=== PATIENT | male | born 1940 | race Caucasian/White ===

== ENCOUNTER 2016-09-30 15:42 | Inpatient (IN) | payer OTHER, MEDICARE ==
[~2016-09-30] VITALS: Ht 182.9 cm; Wt 57.6 kg
[2016-09-30] VITALS (24 sets, daily range): BP systolic 78–122; BP diastolic 52–74; PULSE 84–109; RESP 23–36; Ht 182.9 cm; Wt 57.6 kg
[2016-09-30] MEDS ORDERED: NORepinephrine 8MG/250 ML (PMX 250 ML IV SCH (16:30)
[2016-09-30] MEDS: SOD CHLORIDE 0.9% 1,000 ML IV SCH ×3 (17:16→23:55)
[2016-09-30] MEDS ORDERED: ZOLPIDEM 5 MG TAB PO PRN (18:00)
[2016-09-30 19:25] LABS: ALBUMIN 2.1 g/dl (3.3-4.9); CHLORIDE 111 mmol/L (97-110)
[2016-09-30 19:26] LABS: POTASSIUM 3.6 mmol/L (3.5-5.1); SODIUM 144 mmol/L (135-144)
[2016-09-30 19:28] LABS: ANION GAP 14 (8-16); ASPARTATE AMINO TRANSFERASE 18 IU/L (15-46); CARBON DIOXIDE 23 mmol/L (21-31); CREATININE 0.91 mg/dl (0.61-1.24)
[2016-09-30 19:29] LABS: ALANINE AMINOTRANSFERASE 12 IU/L (13-69); ALBUMIN/GLOBULIN RATIO 0.75; ALKALINE PHOSPHATASE 94 IU/L (42-121); BASOPHILS % 0.1 % (0.0-2.0); BLOOD UREA NITROGEN 45 mg/dl (7-20); CALCIUM 9.4 mg/dl (8.4-10.2); EOSINOPHILS # 0.1 10^3/ul (0.0-0.5); EOSINOPHILS % 0.7 % (0.0-7.0); GLUCOSE 77 mg/dl (70-220); HEMATOCRIT 24.3 % (42.0-52.0); HEMOGLOBIN 7.9 g/dl (14.0-18.0); LACTATE DEHYDROGENASE 423 IU/L (313-618); LYMPHOCYTES # 0.6 10^3/ul (0.8-2.9); LYMPHOCYTES % 3.7 % (15.0-51.0); MEAN CORPUSCULAR HEMOGLOBIN 29.7 pg (29.0-33.0); MEAN CORPUSCULAR HGB CONC 32.2 g/dl (32.0-37.0); MEAN CORPUSCULAR VOLUME 92.2 fl (82.0-101.0); MEAN PLATELET VOLUME 9.5 fl (7.4-10.4); MONOCYTE # 1.1 10^3/ul (0.3-0.9); MONOCYTES % 6.7 % (0.0-11.0); NEUTROPHIL # 14.7 10^3/ul (1.6-7.5); NEUTROPHILS % 88.8 % (39.0-77.0); PLATELET COUNT 201 10^3/UL (140-440); RED BLOOD COUNT 2.64 10^6/ul (4.70-6.10); RED CELL DISTRIBUTION WIDTH 15.2 % (11.5-14.5); TOTAL PROTEIN 4.9 g/dl (6.1-8.1); UNCORRECTED WBC 16.6 10^3/ul (4.8-10.8); WHITE BLOOD COUNT 16.6 10^3/ul (4.8-10.8)
[2016-09-30 19:30] LABS: INR 1.19; PROTIME 15.2 Sec (12.2-14.2); PT RATIO 1.2
[2016-09-30 19:33] LABS: CONDITION 1; LH ANALYZER COMMENTS 1
--- NOTE | 2016-09-30 19:34 | RADRPT ---
PROCEDURE: XR Chest. CLINICAL INDICATION: Cough. Sepsis. TECHNIQUE: Single frontal view. COMPARISON: 09/19/2016. FINDINGS: The lungs are clear. The heart size is normal. There is no pleural effusion or pneumothorax. There are multiple old healed right rib fractures. IMPRESSION: 1. Multiple old healed right rib fractures. 2. Otherwise normal chest radiograph. RPTAT: QQ .Quan Olvera MD, MD Date Time Electronically viewed and signed by .Quan Olvera MD, MD on 09/30/2016 19:33 .R/
[2016-09-30] MEDS: IPRATROPIUM (NEB) 0.5 MG/2.5 ML AMP HHN SCH (19:57)
[2016-09-30 19:59] LABS: TROPONIN-I < 0.012 ng/ml (0.00-0.12)
[2016-09-30] MEDS: ACETYLCYSTEINE 20% 4 ML VIAL NEB SCH (20:05)
[2016-09-30] MEDS: HYPROMELLOSE 0.5% 15 ML OPH BOTH EYES PRN (20:59)
[2016-09-30] MEDS ORDERED: SENNA (PO SYG) GTB SCH (21:00)
[2016-09-30] MEDS: SENNA (PO SYG) GTB SCH ×2 (21:00→21:06)
[2016-09-30] MEDS: DOXAZOSIN 1 MG TAB PO SCH (21:00)
[2016-09-30] MEDS ORDERED: BACITRACIN 0.5%/ZINC 28.35 GM OINT TOP SCH (21:00)
[2016-09-30] MEDS: FERROUS SULFATE 60 MG/ML 5ML CUP GTB SCH (21:00)
[2016-09-30] MEDS: BACITRACIN 0.9 GM OINT TOP SCH (21:02)
[2016-09-30] MEDS: ARTIFICIAL TEARS 15 ML OPH BOTH EYES SCH (21:06)
[2016-09-30] MEDS: ACETAMINOPHEN 650MG/20.3ML CUP GTB SCH ×2 (21:06→22:00)
[2016-09-30] MEDS: POLYETHYLENE GLYCOL 17 GM PACKET GTB SCH (21:06)
[2016-09-30] MEDS: COLISTIMETHATE 75 MG in SOD CHLORIDE 0.9% 100 ML IVPB SCH (21:16)
[2016-09-30 21:29] LABS: ADD UMIC YES; URINE BILIRUBIN (Dip) NEGATIVE (NEGATIVE); URINE BLOOD (Dip) 2+ (NEGATIVE); URINE COLOR LT. YELLOW (YELLOW); URINE GLUCOSE (Dip) NEGATIVE (NEGATIVE); URINE KETONES (Dip) NEGATIVE (NEGATIVE); URINE LEUKOCYTE ESTERASE (Dip) 2+ (NEGATIVE); URINE NITRITE (Dip) NEGATIVE (NEGATIVE); URINE TOTAL PROTEIN (Dip) 2+ (NEGATIVE); URINE UROBILINOGEN (Dip) 0.2 E.U./dL (0.1-1.0)
[2016-09-30 21:33] LABS: PARTIAL THROMBOPLASTIN TIME 30.6 Sec (25.0-35.0)
[2016-09-30 22:41] LABS: SQUAMOUS EPITHELIAL CELL,UR MANY
[2016-09-30 22:42] LABS: BACTERIA,URINE MODERATE
[2016-09-30] MEDS ORDERED: NACL 3% FOR INHALATION 15 ML NEBU NEB ONE (23:30)
[2016-10-01] VITALS (86 sets, daily range): BP systolic 71–135; BP diastolic 40–79; PULSE 82–134; RESP 18–38
[2016-10-01] MEDS: IPRATROPIUM (NEB) 0.5 MG/2.5 ML AMP HHN SCH ×4 (02:34→20:26)
[2016-10-01] MEDS: ACETAMINOPHEN 650MG/20.3ML CUP GTB SCH ×6 (02:37→21:44)
[2016-10-01 03:28] LABS: AADO2 Arterial 38.3 mmHg (7.0-24.0); Allen Test ACCEPTAB; Arterial Base Excess -2.9 mmol/L (-3.0-3); Arterial COHb 0.3 % (0.0-3.0); Arterial Fraction of Oxyhgb 96.9 % (93.0-99.0); Arterial HCO3 21.1 mmol/L (22.0-26.0); Arterial MetHb 0.6 % (0.0-1.5); Arterial Total Hemglobin 7.1 g/dl (12.0-18.0); MODE NASAL CANNULA
[2016-10-01 06:58] LABS: POTASSIUM 4.8 mmol/L (3.5-5.1)
[2016-10-01 07:01] LABS: CREATININE 0.88 mg/dl (0.61-1.24)
[2016-10-01 07:02] LABS: CALCIUM 9.3 mg/dl (8.4-10.2); MAGNESIUM 2.1 mg/dl (1.7-2.5); PHOSPHORUS 3.6 mg/dl (2.5-4.9)
[2016-10-01 08:23] LABS: BASOPHILS % 0.2 % (0.0-2.0); EOSINOPHILS # 0.1 10^3/ul (0.0-0.5); HEMOGLOBIN 7.3 g/dl (14.0-18.0); LYMPHOCYTES # 0.4 10^3/ul (0.8-2.9); LYMPHOCYTES % 3.1 % (15.0-51.0); MEAN CORPUSCULAR HEMOGLOBIN 30.6 pg (29.0-33.0); MEAN CORPUSCULAR HGB CONC 33.2 g/dl (32.0-37.0); MEAN CORPUSCULAR VOLUME 92.1 fl (82.0-101.0); MEAN PLATELET VOLUME 8.5 fl (7.4-10.4); MONOCYTE # 0.9 10^3/ul (0.3-0.9); MONOCYTES % 6.6 % (0.0-11.0); NEUTROPHIL # 11.7 10^3/ul (1.6-7.5); NEUTROPHILS % 89.1 % (39.0-77.0); PLATELET COUNT 234 10^3/UL (140-440); RED BLOOD COUNT 2.39 10^6/ul (4.70-6.10); RED CELL DISTRIBUTION WIDTH 15.4 % (11.5-14.5); UNCORRECTED WBC 13.1 10^3/ul (4.8-10.8); WHITE BLOOD COUNT 13.1 10^3/ul (4.8-10.8)
[2016-10-01 08:26] LABS: CONDITION 1; LH ANALYZER COMMENTS 1
[2016-10-01] MEDS: ACETYLCYSTEINE 20% 4 ML VIAL NEB SCH ×2 (08:30→20:26)
[2016-10-01] MEDS ORDERED: ASPIRIN 81 MG TAB GTB SCH (09:00)
[2016-10-01] MEDS: POLYETHYLENE GLYCOL 17 GM PACKET GTB SCH ×2 (09:22→21:00)
[2016-10-01] MEDS: COLISTIMETHATE 75 MG in SOD CHLORIDE 0.9% 100 ML IVPB SCH ×2 (09:22→21:45)
[2016-10-01] MEDS: FERROUS SULFATE 60 MG/ML 5ML CUP GTB SCH ×2 (09:22→21:44)
[2016-10-01] MEDS: BACITRACIN 0.9 GM OINT TOP SCH ×2 (09:23→21:00)
[2016-10-01] MEDS: ENOXAPARIN 40 MG/0.4 ML SYG SC SCH (09:28)
[2016-10-01] MEDS: FLUCONAZOLE 100 MG TAB GTB SCH (09:32)
[2016-10-01] MEDS ORDERED: SOD CHLORIDE 0.9% 250 ML IV* ONE (10:19)
--- NOTE | 2016-10-01 11:21 | HP ---
DATE OF ADMISSION: 09/30/2016 HISTORY OF PRESENT ILLNESS: The patient is a 75-year-old gentleman with past medical history of Par kinson's disease, versus other neurogenic progressive conditions, i.e. supranuclear palsy, history of dysphagia secondary to tongue cancer status post resection and radiation, status post G-tube plac ement, history of depression, multiple falls with complication of subdural hematoma, history of meni ngioma, prostate cancer status post TURP, history of hypertension who presented via [place] to [facility] after noting to be hypotensive overnight. The patient has been seen in [place] by multiple special ists. including ID. He has a previous diagnosis of sepsis with secondary bacterial cystitis, aspira tion pneumonia and questionable necrotic pelvic mass. He has been on multiple antibiotics. He has not noticed any fevers, chills, nausea, vomiting, chest pain, shortness of breath. A pelvic mass gan d a reported biopsy which showed adenocarcinoma, possibly secondary to his primary tongue cancer. T he patient was evaluated by oncology at [facility]. His previous hospital course has been complic ated by C. diff. He was felt to have recurrent aspiration pneumonia, also noted to have a stage IV decubitus. He underwent excision of a left ischial pressure ulcer with ischiectomy, ____ sacral p ressure with coccygectomy by Dr. Mcneal on 08/30/2016 with a wound VAC placement and was transfused last week for anemia. Primary care is reviewed. Plan of care was discussed with Dr. Hunt. He is currently in ICU stabilized. He is on antibiotics, Colistin. PAST MEDICAL HISTORY: Significant for the above. MEDICATIONS: 1. Aspirin. 2. Lovenox. 3. Diflucan. 4. Sodium chloride. 5. Mucomyst. 6. Artificial Tears. 7. MiraLax. 8. Senna. 9. Bacitracin. 10. Colistin. 11. Cardura. 12. Ferrous sulfate. 13. Isopto tears. 14. Atrovent. 15. Norepinephrine. 16. Tylenol. 17. Tramadol. 18. Ambien. ALLERGIES: The patient has allergies to: 1. PENICILLIN. 2. CODEINE. 3. HYDROCODONE. 4. MORPHINE. SOCIAL HISTORY: Does not smoke, drink or do drugs. Has been in a prolonged hospitalization. FAMILY HISTORY: History of kidney disease. REVIEW OF SYSTEMS: A 14-point review of systems was attempted and negative, also stated on exam. PHYSICAL EXAMINATION: VITAL SIGNS: Temperature 97.9, blood pressure 117/61. HEENT: Normocephalic, atraumatic. Oropharynx shows moist mucous membranes. NECK: Supple. HEART: Regular rate and rhythm. LUNGS: Clear. ABDOMEN: Soft, nontender. Bowel sounds present. LABORATORY EVALUATION: White count 13.1, hemoglobin 7.3, hematocrit 22. Sodium 147, potassium 4.8, BUN 40, creatinine 0.88. UA is reviewed on microscopy. Chest x-ray is reviewed by radiologist. IMPRESSION: 1. Acute hemodynamic instability, possibly septic shock on broad-spectrum antibiotics -- currently on Colistin. Will consult ID to adjust treatment plan. Other possibilities, hypovolemic shock in light of worsening anemia and cardiogenic shock. Cardiology is following. Will continue to monitor . 2. Acute hypoxemic respiratory failure secondary to ____ aspiration pneumonia and possible diastoli c heart failure. Continue supplemental oxygen, nebulizer. Pulmonary is following. 3. History of tongue cancer status post radiation resection with possible metastatic disease to the pelvis. Monitor. 4. Pelvic mass, possibly consistent with adenocarcinoma, possibly from metastatic as primary pathol ogy. Currently not a candidate for chemo. 5. Dysphagia, status post PEG placement. Continue tube feedings. 6. Sepsis, previously secondary to bacterial cystitis, aspiration pneumonia and questionable necrot ic mass. ID is following. Multiple ANTIBIOTIC ALLERGIES noted. 7. Stage IV decubitus wound, status post excision of left ischial pressure ulcer with ischiectomy, excision of sacral pressure ulcer with coccygectomy on 08/30/2016. 8. Parkinson's disease versus neurodegenerative disease versus supranuclear palsy, on Sinemet. 9. History of diastolic heart failure. The patient appears euvolemic in the past. 10. Diarrhea. History of occasional diarrhea. currently not evident. 11. Anemia, status post transfusion. We will need to transfuse in again light of hypotension and p ossible blood loss, hypovolemia. 12. History of prostate cancer status post TURP. The patient has a suprapubic catheter, but little urine output noted. Will monitor. Previous history of bilateral hydronephrosis. 13. Hypertension. Blood pressure is controlled. Continue current blood pressure regimen with hold ing parameters. 14. Chronic neurogenic bladder, status post TURP and suprapubic catheter. 15. Acute encephalopathy, multifactorial. Continue supportive care. 16. Gastrointestinal and deep venous thrombosis prophylaxis as ordered. 17. Previous history of hypercalcemia. Corrected calcium is probably still elevated. Dictated By: SERENITY MILTON MD DF/CHELSI Conf#: [id number] DID#: [id number]
[2016-10-01] MEDS ORDERED: LIDOCAINE 1% (MDV) 20 ML INJ SC ONE (11:30)
[2016-10-01] MEDS: SOD CHLORIDE 0.9% 1,000 ML IV SCH (11:53)
--- NOTE | 2016-10-01 14:25 | PN ---
DATE: 10/01/2016 SUBJECTIVE: The patient was transferred yesterday from [facility] secondary to septic shock, c urrently on Levophed drip. He is obtunded, in no distress. VITAL SIGNS: Temperature 98, pulse 90, respirations 34, blood pressure 125/67, saturation 98% on 2 liters. LABORATORY DATA: WBC 13.1, H and H 7.3 and 22, platelets 234, neutrophils 79.1. BUN 40, creatinine 0.88. INDWELLINGS: Suprapubic catheter, peripheral IV, also G-tube. ANTIMICROBIALS: The patient is on: 1. Fluconazole. 2. IV Colistin. DIAGNOSTICS: Chest x-ray on 09/30/2016 revealed no pleural effusions or pneumothorax. PHYSICAL EXAMINATION: GENERAL: This is a chronically ill-appearing, elderly man who is lying comfortably in bed. HEENT: Head atraumatic, normocephalic. Sclerae anicteric. Buccal mucosa dry. NECK: Supple. CHEST: Rise symmetrical. Breath sounds diminished to bases. HEART: S1, S2. ABDOMEN: Soft. Bowel sounds present. EXTREMITIES: With bilateral edema. SKIN: No jaundice, no cyanosis. ASSESSMENT: 1. Severe sepsis with shock, likely multifactorial. 2. Resolving pneumonia. 3. Status post urinary tract infection with urine culture on 08/24/2016 grew vancomycin-resistant e nterococci and Enterobacter cloacae complex. 4. Multiple unstageable decubiti, status post incision and drainage, cultures grew Enterobacter cristhian acae, vancomycin-resistant enterococci, Bacteroides fragilis and Acinetobacter baumannii. 5. Chronic encephalopathy. 6. Metastatic disease with CT of the abdomen and pelvis revealed right upper lobe infectious or inf lammatory bronchiolitis, moderate to severe right hydroureteronephrosis without obstruction, diffuse urinary bladder wall thickening, questionable infectious versus neoplastic process, approximately 1 1.3 x 8.6 x 8.7 cm mass in the inferior right pelvis with associated lysis of adjacent right superio r pubic ramus and pubic bone. PLAN: We are going to restart the patient on Zyvox given history of VRE and also to preserve kidney function. Continue colistin, fluconazole. Repeat cultures. Continue anti-aspiration measures. C onsider discussion with the family code status and plans of care. Dictated By: LUIS ARMANDO MIRANDA BILLING ASSOCIATE for MICHAEL RIVAS/CHELSI Conf#: [id number] DID#: [id number]
--- NOTE | 2016-10-01 17:05 | CONS ---
DATE OF ADMISSION: 09/30/2016 DATE OF CONSULTATION: 10/01/2016 TYPE OF CONSULTATION: Cardiology. REASON FOR CONSULTATION: Tachycardia, shock. CHIEF COMPLAINT: Low blood pressure, shock. HISTORY OF PRESENT ILLNESS: Thank you for this referral. History obtained from the patient's chart and from extensive review of the old chart. The patient also known to me from previous admission t [facility]. Discussed with the staff. This unfortunate 75-year-old gentleman with a complic ated medical history who was treated at [facility] for hypotension and shock. The patient requ ired to be placed on Levophed drip. The patient unable to give history to me, and is lethargic. He has also been tachycardic. PAST MEDICAL HISTORY: History of Parkinson disease, history of dysphagia, PEG placement, history of tongue cancer status post resection and radiation, history of multiple falls and subdural hematoma, history of meningioma, prostate CA status post TURP, ____ history of hypertension, respiratory fail ure, encephalopathy, C. diff, tachycardia. SOCIAL HISTORY: Does not smoke or drink at this point. Has had a prolonged hospitalization. MEDICATIONS: As per medical reconciliation, personally reviewed. ALLERGIES: 1. PENICILLIN. 2. CODEINE. 3. HYDROCODONE. 4. MORPHINE. FAMILY HISTORY: No reported early coronary artery disease. REVIEW OF SYSTEMS: Negative so far. The patient also has a PEG in place and dysphagia. Nonverbal. PHYSICAL EXAMINATION: VITAL SIGNS: Temperature 98, heart rate of 97, blood pressure 110/61, respiration rate of 32, satur ating 99%. HEENT: Normocephalic, atraumatic. Elderly gentleman. EYES: Pupils are equal. CARDIOVASCULAR: Tachycardic. PULMONARY: With mild rhonchi. GASTROINTESTINAL: Soft, status post PEG placement, otherwise no rebound or guarding. EXTREMITIES: With no significant lower extremity edema. NEUROLOGIC: Drowsy and lethargic, eyes are open, does not answer my questions, though. LABORATORY: Sodium 147, potassium 4.8, BUN of 40, creatinine 0.88, glucose 69, magnesium 2.1. WBC of 13.1, hemoglobin 7.2, platelets 234. Chest x-ray shows multiple old healed fractures, otherwise normal chest. Echocardiogram which was done on 09/20/2016, was personally reviewed. It showed ejec tion fraction of 65% with a grade I diastolic dysfunction. EKG showed normal sinus rhythm with slig htly prolonged QT. ASSESSMENT AND PLAN: 1. Septic shock. 2. Respiratory failure. 3. Sinus tachycardia secondary to above. 4. History of tongue cancer status post surgery. 5. Pelvic mass. 6. Decubitus ulcers. 7. Anemia, severe. 8. History of prostate cancer status post surgery. 9. Encephalopathy. RECOMMENDATIONS: I will stop the aspirin, given his severe anemia. Transfusion as per internal med icine is being arranged. Levophed will be continued for now. We will continue with the ICU care. More than 40 minutes of critical care management of this patient, excluding procedures. Dictated By: KATIE BURR/CHELSI Conf#: [id number] DID#: [id number]
[2016-10-01] MEDS: DOXAZOSIN 1 MG TAB PO SCH (21:00)
[2016-10-01] MEDS ORDERED: FUROSEMIDE 40 MG INJ IV ONE (21:30)
[2016-10-01] MEDS: ARTIFICIAL TEARS 15 ML OPH BOTH EYES SCH (21:44)
[2016-10-01] MEDS: LINEZOLID 600 MG/D5W (PMX) 300 ML IVPB SCH (21:45)
[2016-10-02] VITALS (30 sets, daily range): BP systolic 84–161; BP diastolic 57–96; PULSE 81–118; RESP 25–40
[2016-10-02] MEDS: IPRATROPIUM (NEB) 0.5 MG/2.5 ML AMP HHN SCH ×3 (01:29→13:42)
[2016-10-02] MEDS: ACETAMINOPHEN 650MG/20.3ML CUP GTB SCH ×7 (02:00→22:47)
[2016-10-02] MEDS: traMADol 50 MG TAB GTB PRN ×5 (02:22→23:53)
[2016-10-02 06:31] LABS: ALBUMIN 2.3 g/dl (3.3-4.9)
[2016-10-02 06:32] LABS: POTASSIUM 3.2 mmol/L (3.5-5.1)
[2016-10-02 06:33] LABS: PHOSPHORUS 4.1 mg/dl (2.5-4.9)
[2016-10-02 06:34] LABS: ALBUMIN/GLOBULIN RATIO 0.69; CREATININE 1.02 mg/dl (0.61-1.24); MAGNESIUM 1.8 mg/dl (1.7-2.5); TOTAL PROTEIN 5.6 g/dl (6.1-8.1)
[2016-10-02 06:35] LABS: CALCIUM 9.3 mg/dl (8.4-10.2)
[2016-10-02 06:42] LABS: EOSINOPHILS # 0.1 10^3/ul (0.0-0.5); EOSINOPHILS % 0.7 % (0.0-7.0); HEMATOCRIT 29.5 % (42.0-52.0); HEMOGLOBIN 9.9 g/dl (14.0-18.0); LYMPHOCYTES # 0.5 10^3/ul (0.8-2.9); LYMPHOCYTES % 3.1 % (15.0-51.0); MEAN CORPUSCULAR HEMOGLOBIN 30.2 pg (29.0-33.0); MEAN CORPUSCULAR HGB CONC 33.4 g/dl (32.0-37.0); MEAN CORPUSCULAR VOLUME 90.3 fl (82.0-101.0); MEAN PLATELET VOLUME 8.6 fl (7.4-10.4); MONOCYTE # 0.6 10^3/ul (0.3-0.9); MONOCYTES % 4.5 % (0.0-11.0); NEUTROPHIL # 13.2 10^3/ul (1.6-7.5); NEUTROPHILS % 91.7 % (39.0-77.0); PLATELET COUNT 252 10^3/UL (140-440); RED BLOOD COUNT 3.26 10^6/ul (4.70-6.10); RED CELL DISTRIBUTION WIDTH 15.9 % (11.5-14.5); UNCORRECTED WBC 14.4 10^3/ul (4.8-10.8); WHITE BLOOD COUNT 14.4 10^3/ul (4.8-10.8)
[2016-10-02 07:08] LABS: CONDITION 1; LH ANALYZER COMMENTS 1
[2016-10-02] MEDS: ACETYLCYSTEINE 20% 4 ML VIAL NEB SCH (08:45)
[2016-10-02] MEDS: POLYETHYLENE GLYCOL 17 GM PACKET GTB SCH ×2 (09:00→20:53)
[2016-10-02] MEDS: LINEZOLID 600 MG/D5W (PMX) 300 ML IVPB SCH ×2 (09:43→20:21)
[2016-10-02] MEDS: FERROUS SULFATE 60 MG/ML 5ML CUP GTB SCH ×2 (09:43→20:29)
[2016-10-02] MEDS: COLISTIMETHATE 75 MG in SOD CHLORIDE 0.9% 100 ML IVPB SCH ×2 (09:43→21:59)
[2016-10-02] MEDS: FLUCONAZOLE 100 MG TAB GTB SCH (09:43)
[2016-10-02] MEDS: BACITRACIN 0.9 GM OINT TOP SCH ×2 (09:44→20:33)
[2016-10-02] MEDS: ENOXAPARIN 40 MG/0.4 ML SYG SC SCH (10:05)
--- NOTE | 2016-10-02 10:06 | CONS ---
Date/Time of Note Date/Time of Note DATE: 10/02/16 TIME: 09:59 Consult Date/Type/Reason Admit Date/Time Sep 30, 2016 at 17:03 Initial Consult Date Subjective The patient is a 75-year-old gentleman with past medical history of Parkinson' s disease, versus other neurogenic progressive conditions, i.e. supranuclear palsy, history of dysphagia secondary to tongue cancer status post resection and radiation, status post G-tube placement, history of depression, multiple falls with complication of subdural hematoma, history of meningioma, prostate cancer status post TURP, history of hypertension who presented via [place] to the ICU after noting to be hypotensive overnight. The patient has been seen in [place] by multiple specialists. including ID. He has a previous diagnosis of sepsis with secondary bacterial cystitis, aspiration pneumonia and questionable necrotic pelvic mass. He has been on multiple antibiotics. He has not noticed any fevers, chills, nausea, vomiting, chest pain, shortness of breath. A pelvic mass had a reported biopsy which showed adenocarcinoma, possibly secondary to his primary tongue cancer. The patient was evaluated by oncology at [facility]. His previous hospital course has been complicated by C. diff. He was felt to have recurrent aspiration pneumonia, also noted to have a stage IV decubitus. He underwent excision of a left ischial pressure ulcer with ischiectomy, sacral pressure ulcer with coccygectomy by Dr. Mcneal on with a wound VAC placement and was transfused last week for anemia. Plan of care was discussed with Dr. candelario. He is currently in ICU stabilized. He is on antibiotics, Colistin. He is sp prbc yesterday. bp is better. estimated time of retention > 60 min. GENERAL: This is a chronically ill-appearing, elderly man who is lying comfortably in bed. HEENT: Head atraumatic, normocephalic. Sclerae anicteric. Buccal mucosa dry. NECK: Supple. CHEST: Rise symmetrical. Breath sounds diminished to bases. HEART: S1, S2. ABDOMEN: Soft. Bowel sounds present. EXTREMITIES: With bilateral edema. SKIN: No jaundice, no cyanosis. Objective Vital Signs Date Time Temp Pulse Resp B/P Pulse Ox O2 Delivery O2 Flow Rate FiO2 10/02/16 08:45 118 40 100 Nasal Cannula 2.0 10/02/16 06:00 140/77 10/02/16 04:00 97.6 10/02/16 02:06 28 Intake and Output 10/01/16 10/01/16 10/02/16 15:00 23:00 07:00 Intake Total 959.36 ml 937.55 ml Output Total 325 ml 535 ml 885 ml Balance 634.36 ml 402.55 ml -885 ml Results/Medications Result Diagram: 10/02/16 0546 10/02/16 0546 Results 24 hrs Laboratory Tests Test 10/02/16 05:46 Alanine Aminotransferase (ALT/SGPT) 25 Albumin 2.3 L Albumin/Globulin Ratio 0.69 Alkaline Phosphatase 94 Anion Gap 16 Aspartate Amino Transf (AST/SGOT) 20 Basophils # 0.0 Basophils % 0.0 Blood Morphology Comment Blood Urea Nitrogen 33 H Calcium Level 9.3 Carbon Dioxide Level 20 L Chloride Level 114 H Creatinine 1.02 Direct Bilirubin 0.00 Eosinophils # 0.1 Eosinophils % 0.7 Globulin 3.30 H Glucose Level 78 Hematocrit 29.5 #L Hemoglobin 9.9 #L Indirect Bilirubin 0.0 Lymphocytes # 0.5 L Lymphocytes % 3.1 L Magnesium Level 1.8 Mean Corpuscular Hemoglobin 30.2 Mean Corpuscular Hemoglobin Concent 33.4 Mean Corpuscular Volume 90.3 Mean Platelet Volume 8.6 Monocytes # 0.6 Monocytes % 4.5 Neutrophils # 13.2 H Neutrophils % 91.7 H Nucleated Red Blood Cells # 0.0 Nucleated Red Blood Cells % 0.0 Phosphorus Level 4.1 Platelet Count 252 Potassium Level 3.2 L Red Blood Count 3.26 #L Red Cell Distribution Width 15.9 H Sodium Level 147 H Total Bilirubin 0.0 L Total Protein 5.6 L White Blood Count 14.4 H Medications Current Medications Norepinephrine/ Dextrose (Levophed/D5W) 500 ml @ 7.5 mls/hr TITRATE IV Last administered on 10/01/16 04:09; Admin Dose 7.5 MLS/HR; Start 09/30/16 at 19:00 Acetaminophen (Tylenol Liquid) 650 mg Q6 PRN GTB PAIN AND OR ELEVATED TEMP; Start 09/30/16 at 18:00 Acetaminophen (Tylenol Liquid) 650 mg Q4H GTB Last administered on 10/02/16 09 :43; Admin Dose 650 MG; Start 09/30/16 at 18:00 Acetylcysteine (Mucomyst) 2 ml Q12 NEB Last administered on 10/02/16 08:45; Admin Dose 2 ML; Start 09/30/16 at 21:00 Eye Lubricant (Artificial Tears Oph) 2 drop HS BOTH EYES Last administered on 21:44; Admin Dose 2 DROP; Start 09/30/16 at 21:00 Polyethylene Glycol (Miralax) 17 gm BID GTB Last administered on 10/01/16 09: 22; Admin Dose 17 GM; Start 09/30/16 at 21:00 Tramadol HCl (Ultram) 25 mg Q6H PRN GTB PAIN Last administered on 10/02/16 09: 43; Admin Dose 25 MG; Start 09/30/16 at 18:00 Zolpidem Tartrate (Ambien) 5 mg HS PRN PO INSOMNIA; Start 09/30/16 at 18:00 Senna (Senokot (Ped)) 5 ml HS GTB Last administered on 09/30/16 21:06; Admin Dose 5 ML; Start 09/30/16 at 21:00 Bacitracin 1 applic 1 applic BID TOP Last administered on 10/02/16 09:44; Admin Dose 1 APPLIC; Start 09/30/16 at 21:00 Colistimethate Sodium/Sodium Chloride (Coly-Mycin/NS) 100 ml @ 200 mls/hr Q12 IVPB Last administered on 10/02/16 09:43; Admin Dose 200 MLS/HR; Start at 21:00 Doxazosin Mesylate (Cardura) 1 mg HS PO ; Start 09/30/16 at 21:00 Enoxaparin Sodium (Lovenox) 40 mg DAILY SC Last administered on 10/01/16 09:28 ; Admin Dose 40 MG; Start 10/01/16 at 09:00 Ferrous Sulfate (Feosol Liquid Cup) 300 mg BID GTB Last administered on 09:43; Admin Dose 300 MG; Start 09/30/16 at 21:00 Fluconazole (Diflucan) 100 mg DAILY GTB Last administered on 10/02/16 09:43; Admin Dose 100 MG; Start 10/01/16 at 09:00 Hypromellose 1 drop 1 drop Q6H PRN BOTH EYES IRRITATION Last administered on 20:59; Admin Dose 1 DROP; Start 09/30/16 at 20:00 Linezolid (Zyvox 600mg/D5W (Pmx)) 300 ml @ 300 mls/hr Q12 IVPB Last administered on 10/02/16 09:43; Admin Dose 300 MLS/HR; Start 10/01/16 at 21:00 Assessment/Plan Chief Complaint/Hosp Course 1. Acute hemodynamic instability, possibly septic shock on broad-spectrum antibiotics -- currently on Colistin. ID to adjust treatment plan. started on zyvox. Other possibilities, hypovolemic shock in light of worsening anemia and cardiogenic shock. Cardiology is following. Will continue to monitor. 2. Acute hypoxemic respiratory failure secondary to recurent aspiration pneumonia and possible diastolic heart failure. Continue supplemental oxygen, nebulizer. Pulmonary is following. 3. History of tongue cancer status post radiation resection with possible metastatic disease to the pelvis. Monitor. 4. Pelvic mass, possibly consistent with adenocarcinoma, possibly from metastatic as primary pathology. Currently not a candidate for chemo. 5. Dysphagia, status post PEG placement. Continue tube feedings. 6. Sepsis, previously secondary to bacterial cystitis, aspiration pneumonia and questionable necrotic mass. ID is following. Multiple ANTIBIOTIC ALLERGIES noted. 7. Stage IV decubitus wound, status post excision of left ischial pressure ulcer with ischiectomy, excision of sacral pressure ulcer with coccygectomy on 08/30/2016. 8. Parkinson's disease versus neurodegenerative disease versus supranuclear palsy, on Sinemet. 9. History of diastolic heart failure. The patient appears euvolemic in the past. 10. Diarrhea. History of occasional diarrhea. currently not evident. 11. Anemia, status post transfusion. responded to appropriate levels. 12. History of prostate cancer status post TURP. The patient has a suprapubic catheter, but little urine output noted. Will monitor. Previous history of bilateral hydronephrosis. 13. Hypertension. Blood pressure is controlled. Continue current blood pressure regimen with holding parameters. 14. Chronic neurogenic bladder, status post TURP and suprapubic catheter. 15. Acute encephalopathy, multifactorial. Continue supportive care. 16. hypokalemia- replete. 17. Previous history of hypercalcemia. Corrected calcium is probably still elevated. 18. prophylaxis- Gastrointestinal and deep venous thrombosis prophylaxis as ordered. Problems: SERENITY MILTON MD Oct 02, 2016 10:06
[2016-10-02] MEDS ORDERED: POTASSIUM CHLORIDE 250 ML IVPB ONE (10:30)
[2016-10-02 14:32] LABS: AADO2 Arterial 72.8 mmHg (7.0-24.0); Arterial Base Excess -4.8 mmol/L (-3.0-3); Arterial COHb 0.4 % (0.0-3.0); Arterial Fraction of Oxyhgb 95.7 % (93.0-99.0); Arterial HCO3 18.6 mmol/L (22.0-26.0); Arterial MetHb 0.4 % (0.0-1.5); Arterial Total Hemglobin 12.8 g/dl (12.0-18.0); MODE NASAL CANNULA
[2016-10-02] MEDS ORDERED: HEPARIN (10 UNITS/ML) 5ML SYG IV ONE (15:00)
[2016-10-02] MEDS: HYPROMELLOSE 0.5% 15 ML OPH BOTH EYES PRN (16:30)
--- NOTE | 2016-10-02 16:34 | RADRPT ---
PROCEDURE: XR Chest. CLINICAL INDICATION: PICC line placement. TECHNIQUE: Portable AP supine view of the chest was obtained. COMPARISON: 09/30/2016 FINDINGS: The cardiomediastinal silhouette is within normal limits. The lungs are clear but mildly hyperinfla graciela. There is no evidence for pleural effusion, pneumothorax or pulmonary vascular congestion. Mul tiple old healed right upper rib fractures are again demonstrated without evidence of acute osseous abnormality. New left-sided PICC line is in good position the distal tip pointing inferiorly in the region of the superior vena cava above the right atrial junction RPTAT:HJJR IMPRESSION: 1. Successful interval left PICC place with the distal tip pointing inferiorly in the region of the superior vena cava above the right atrial junction. 2. No evidence of acute intrathoracic pathology or otherwise interval change from 09/30/2016. Physician Juvencio Date Time Electronically viewed and signed by Physician Juvencio on 10/02/2016 16:34 /
--- NOTE | 2016-10-02 17:12 | PN ---
DATE: 10/02/2016 SUBJECTIVE: Discussed with the staff. Rhythm strip reviewed. The patient remains in sinus rhythm and tachycardia. He has been able to be weaned off of Levophed. NEUROLOGIC: Sedated, nonresponsive. MEDICATIONS: Reviewed as per medical reconciliation, personally reviewed. PHYSICAL EXAMINATION: VITAL SIGNS: Temperature 97.7, heart rate of 108, blood pressure 92/67, respiration rate HEENT: Atraumatic, 75-year-old gentleman. EYES: Pupils equal and round. NECK: No JVD. CARDIOVASCULAR: Tachycardic. PULMONARY: With mild rhonchi, diffuse. GASTROINTESTINAL: Soft, status post percutaneous endoscopic gastrostomy placement. EXTREMITIES: Trivial lower extremity edema. NEUROLOGIC: Does not answer any questions or following commands. LABORATORY: WBC of 14.4, hemoglobin 9.9, platelets 252. Sodium 147, potassium 3.2, BUN of 33, crea tinine 1.02, glucose 78, albumin is 2.3. ASSESSMENT AND PLAN: 1. Shock, multifactorial secondary to hypovolemic and septic. 2. Respiratory failure. 3. Sinus tachycardia secondary to above. 4. History of tongue cancer, status post surgery. 5. Pelvic mass, probably tumor. 6. History of decubitus ulcers. 7. Anemia, status post transfusion. 8. History of prostate carcinoma, appears to be stable. 9. Encephalopathy. Recommendations: Will continue with supportive care. Off of Levophed now. Respiratory care will b e continued. Multiple antibiotic as per ID's recommendation will be continued. Nutritional support as tolerated will be continued as well. Dictated By: KATIE BURR/CHELSI Conf#: [id number] DID#: [id number]
--- NOTE | 2016-10-02 18:31 | PN ---
DATE: 10/02/2016 SUBJECTIVE: The patient is off pressors, lying comfortably in bed. He is nonverbal, obtunded, nonc ommunicative, and in no distress. Per report, he is ____. VITAL SIGNS: Temperature 97.6, pulse 109, respirations 30, blood pressure 128/71, saturation 100% o n 2 liters. LABORATORY DATA: WBC 14.4, H and H 9.9 and 29.5, platelets 252, neutrophils 91.7. No bands. BUN 3 3, creatinine 1.02. INDWELLINGS: The patient has Cruz, PICC line placed this morning, PEG. ANTIMICROBIALS: 1. Zyvox. 2. Fluconazole. 3. Colistin. PHYSICAL EXAMINATION: GENERAL: This is a chronically ill-appearing, elderly man who is lying comfortably in bed. HEENT: Head atraumatic, normocephalic. Sclerae anicteric. Buccal mucosa dry. NECK: Supple. CHEST: Rise symmetrical. Breath sounds diminished. HEART: S1, S2. ABDOMEN: Soft. Bowel tones hypoactive. EXTREMITIES: With trace edema. SKIN: With multiple unstageable decubitus. ASSESSMENT: 1. Severe sepsis with shock. 2. Multiple infected wounds, possible osteomyelitis, status post incision and drainage with wound c ulture at [facility] grew multi-drug resistant organisms, including Acinetobacter baumannii, va ncomycin resistant enterococcus, Bacteroides fragilis. 3. Significant secretion retention, possible ongoing aspiration. 4. Large pelvic mass, likely metastatic. 5. Chronic encephalopathy. 6. Status post urinary tract infection. PLAN: We are going to add Flagyl to the regimen for anaerobic coverage as well. For diarrhea the p atmejia developed per report, send stool for Clostridium difficile. Continue antibiotics, local woun d care. Consider surgical evaluation for possible debridement. Consider palliative care evaluation . Dictated By: LUIS ARMANDO MIRANDA DRUM TESTER for MICHAEL RIVAS/CHELSI Conf#: [id number] DID#: [id number] CC: JAX SLATER DO;*EndCC*
[2016-10-02] MEDS: LEVALBUTEROL (NEB) 0.63 MG/3 ML AMP HHN SCH (19:46)
--- NOTE | 2016-10-02 20:14 | RADRPT ---
PROCEDURE: Ultrasound guidance for placement of needle in left upper extremity vein. CLINICAL INDICATION: PICC placement. TECHNIQUE: Limited sonography of the left upper extremity was performed. Ultrasound images were recorded and st ored in the patient's medical record. COMPARISON: Chest radiograph of the same day. FINDINGS: The ultrasound images demonstrate a patent left upper extremity vein. The PICC line was inserted by the PICC line nurse. IMPRESSION: 1. Ultrasound guidance for a needle placement in a left upper extremity vein. 2. The visualized right upper extremity vein is patent. RPTAT: QQ .Jessica Rodriguez MD, Date Time Electronically viewed and signed by .Jessica Rodriguez MD, on 10/02/2016 20:14 .N/
[2016-10-02] MEDS: ARTIFICIAL TEARS 15 ML OPH BOTH EYES SCH (20:20)
[2016-10-02] MEDS: SENNA (PO SYG) GTB SCH (20:53)
[2016-10-02] MEDS: DOXAZOSIN 1 MG TAB PO SCH (20:54)
--- NOTE | 2016-10-02 21:48 | RADRPT ---
Vent Rate: 93 bpm RR Interval: 0 msec TX Interval: 158 msec QRS Duration: 100 msec QT Interval: 386 msec QTC Interval: 479 msec P-R-T [place]: 69 - 26 - 78 degrees Normal sinus rhythm with sinus arrhythmia Prolonged QT Abnormal ECG Electronically Signed By: Abiel Elizondo [id number]
[2016-10-02] MEDS: ACETAMINOPHEN 650MG/20.3ML CUP GTB PRN (22:47)
[2016-10-03] VITALS (28 sets, daily range): BP systolic 85–136; BP diastolic 50–99; PULSE 81–120; RESP 18–39
[2016-10-03] MEDS: ACETAMINOPHEN 650MG/20.3ML CUP GTB SCH (02:00)
[2016-10-03] MEDS: LEVALBUTEROL (NEB) 0.63 MG/3 ML AMP HHN SCH ×4 (02:07→20:22)
[2016-10-03] MEDS ORDERED: ACETAMINOPHEN 650MG/20.3ML CUP GTB PRN (04:00)
[2016-10-03] MEDS: ACETAMINOPHEN 650MG/20.3ML CUP GTB PRN ×2 (05:00→18:03)
[2016-10-03] MEDS: traMADol 50 MG TAB GTB PRN ×2 (05:02→18:03)
[2016-10-03 05:51] LABS: POTASSIUM 3.4 mmol/L (3.5-5.1)
[2016-10-03 05:53] LABS: CREATININE 1.11 mg/dl (0.61-1.24)
[2016-10-03 05:54] LABS: CALCIUM 9.2 mg/dl (8.4-10.2); MAGNESIUM 1.7 mg/dl (1.7-2.5); PHOSPHORUS 4.1 mg/dl (2.5-4.9)
[2016-10-03 06:46] LABS: EOSINOPHILS # 0.2 10^3/ul (0.0-0.5); EOSINOPHILS % 1.1 % (0.0-7.0); HEMATOCRIT 29.6 % (42.0-52.0); LYMPHOCYTES # 0.5 10^3/ul (0.8-2.9); LYMPHOCYTES % 3.1 % (15.0-51.0); MEAN CORPUSCULAR HEMOGLOBIN 30.7 pg (29.0-33.0); MEAN CORPUSCULAR HGB CONC 33.7 g/dl (32.0-37.0); MEAN CORPUSCULAR VOLUME 91.2 fl (82.0-101.0); MEAN PLATELET VOLUME 8.8 fl (7.4-10.4); MONOCYTE # 0.9 10^3/ul (0.3-0.9); MONOCYTES % 5.9 % (0.0-11.0); NEUTROPHIL # 14.5 10^3/ul (1.6-7.5); NEUTROPHILS % 89.9 % (39.0-77.0); PLATELET COUNT 303 10^3/UL (140-440); RED BLOOD COUNT 3.25 10^6/ul (4.70-6.10); RED CELL DISTRIBUTION WIDTH 15.7 % (11.5-14.5); UNCORRECTED WBC 16.2 10^3/ul (4.8-10.8); WHITE BLOOD COUNT 16.2 10^3/ul (4.8-10.8)
[2016-10-03 06:52] LABS: CONDITION 1; LH ANALYZER COMMENTS 1
[2016-10-03] MEDS ORDERED: POTASSIUM CHLORIDE 20 MEQ POWDER FOR ORAL SOLN GTB ONE (08:00)
[2016-10-03] MEDS: FERROUS SULFATE 60 MG/ML 5ML CUP GTB SCH ×2 (08:59→20:54)
[2016-10-03] MEDS: FLUCONAZOLE 100 MG TAB GTB SCH (09:00)
[2016-10-03] MEDS: BACITRACIN 0.9 GM OINT TOP SCH ×2 (09:00→20:55)
[2016-10-03] MEDS: ENOXAPARIN 40 MG/0.4 ML SYG SC SCH (09:12)
--- NOTE | 2016-10-03 09:27 | CONS ---
Date/Time of Note Date/Time of Note DATE: 10/03/16 TIME: 09:24 Assessment/Plan Assessment/Plan Additional Assessment/Plan Chest x-ray was reviewed from today which is essentially unremarkable. Assessment and recommendation; 1. Patient with advanced COPD present over to ICU for hypotension with interval resolution. Currently off pressor support. 2. Pneumonia. 3. End-stage COPD. 4. Advanced dementia and Parkinson's disease. Continue current treatment for now patient be transferred to telemetry unit. Prognosis remains poor. Consultation Date/Type/Reason Admit Date/Time Sep 30, 2016 at 17:03 Initial Consult Date Type of Consultation: Pulmonary/critical care 24 HR Interval Summary Free Text/Dictation Patient was transferred over from [place] for episode of hypotension to ICU. Patient always off pressor support. Because of advanced Parkinson's disease and dementia patient is unable to give any history whatsoever and history was obtained from medical records. Patient also is well-known to me from [facility]. General examination; elderly male awake currently in no distress very minimally responsive which is his underlying mental status. Currently does not appear to be in any distress. Exam/Review of Systems Vital Signs Vitals Vital Signs Date Time Temp Pulse Resp B/P Pulse Ox O2 Delivery O2 Flow Rate FiO2 10/03/16 08:41 110 32 100 Nasal Cannula 2.0 10/03/16 08:00 97.8 128/92 10/02/16 02:06 28 Intake and Output 10/02/16 10/02/16 10/03/16 15:00 23:00 07:00 Intake Total 410 ml 650 ml 535 ml Output Total 415 ml 310 ml 475 ml Balance -5 ml 340 ml 60 ml Exam H EENT examination; he does have a chronically stiff neck. No lymphadenopathy. No thyromegaly. Patient does not multiple carious teeth. Pupils are small bilaterally. Chest examination; diminished breath sounds bilaterally without any added sounds. S1-S2 audible, no murmurs. Regular rhythm. Abdomen examination; soft, G-tube in place. Suprapubic catheter in place. No organomegaly felt. Bowel sounds audible. Extremity examination; no peripheral edema. 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 Results Result Diagram: 10/03/16 0500 10/03/16 0500 Results 24 hrs Laboratory Tests Test 10/02/16 14:04 10/03/16 05:00 Arterial Blood HCO3 18.6 L Arterial Blood Base Excess -4.8 L Arterial Blood Oxygen Saturation 96.5 Eric Test N/A Arterial Blood Gas Puncture Site Right Brachial Arterial Blood Carboxyhemoglobin 0.4 Arterial Blood Date Drawn 10/02/2016 2:15:48 PM Arterial Blood Methemoglobin 0.4 Arterial Blood pCO2 (Temp correct) 29.8 L Arterial Blood pH (Temp corrected) 7.413 Arterial Blood pO2 (Temp corrected) 84.5 Blood Gas A-a O2 Differential 72.8 H Blood Gas Modality NASAL CANNULA Blood Gas Notified Time 10/02/2016 2:32:41 PM Blood Gas Notified Whom AT Blood Gas Specimen Source Blood arterial Blood Gas Temperature 37.0 FiO2 27.0 Oxyhemoglobin Percent 95.7 Total Hemoglobin 12.8 Anion Gap 17 H Basophils # 0.0 Basophils % 0.0 Blood Morphology Comment Blood Urea Nitrogen 32 H Calcium Level 9.2 Carbon Dioxide Level 19 L Chloride Level 115 H Creatinine 1.11 Eosinophils # 0.2 Eosinophils % 1.1 Glucose Level 76 Hematocrit 29.6 L Hemoglobin 10.0 L Lymphocytes # 0.5 L Lymphocytes % 3.1 L Magnesium Level 1.7 Mean Corpuscular Hemoglobin 30.7 Mean Corpuscular Hemoglobin Concent 33.7 Mean Corpuscular Volume 91.2 Mean Platelet Volume 8.8 Monocytes # 0.9 Monocytes % 5.9 Neutrophils # 14.5 H Neutrophils % 89.9 H Nucleated Red Blood Cells # 0.0 Nucleated Red Blood Cells % 0.0 Phosphorus Level 4.1 Platelet Count 303 # Potassium Level 3.4 L Red Blood Count 3.25 L Red Cell Distribution Width 15.7 H Sodium Level 148 H White Blood Count 16.2 H Medications Medications Current Medications Norepinephrine/ Dextrose (Levophed/D5W) 500 ml @ 7.5 mls/hr TITRATE IV Last administered on 10/01/16 04:09; Admin Dose 7.5 MLS/HR; Start 09/30/16 at 19:00 Acetaminophen (Tylenol Liquid) 650 mg Q6 PRN GTB PAIN AND OR ELEVATED TEMP Last administered on 10/03/16 05:00; Admin Dose 650 MG; Start 09/30/16 at 18:00 Eye Lubricant (Artificial Tears Oph) 2 drop HS BOTH EYES Last administered on 20:20; Admin Dose 2 DROP; Start 09/30/16 at 21:00 Polyethylene Glycol (Miralax) 17 gm BID GTB Last administered on 10/01/16 09: 22; Admin Dose 17 GM; Start 09/30/16 at 21:00 Tramadol HCl (Ultram) 25 mg Q6H PRN GTB PAIN Last administered on 10/03/16 05: 02; Admin Dose 25 MG; Start 09/30/16 at 18:00 Zolpidem Tartrate (Ambien) 5 mg HS PRN PO INSOMNIA; Start 09/30/16 at 18:00 Senna (Senokot (Ped)) 5 ml HS GTB Last administered on 09/30/16 21:06; Admin Dose 5 ML; Start 09/30/16 at 21:00 Bacitracin 1 applic 1 applic BID TOP Last administered on 10/03/16 09:00; Admin Dose 1 APPLIC; Start 09/30/16 at 21:00 Colistimethate Sodium/Sodium Chloride (Coly-Mycin/NS) 100 ml @ 200 mls/hr Q12 IVPB Last administered on 10/02/16 21:59; Admin Dose 200 MLS/HR; Start at 21:00 Doxazosin Mesylate (Cardura) 1 mg HS PO ; Start 09/30/16 at 21:00 Enoxaparin Sodium (Lovenox) 40 mg DAILY SC Last administered on 10/03/16 09:12 ; Admin Dose 40 MG; Start 10/01/16 at 09:00 Ferrous Sulfate (Feosol Liquid Cup) 300 mg BID GTB Last administered on 08:59; Admin Dose 300 MG; Start 09/30/16 at 21:00 Fluconazole (Diflucan) 100 mg DAILY GTB Last administered on 10/03/16 09:00; Admin Dose 100 MG; Start 10/01/16 at 09:00 Hypromellose 1 drop 1 drop Q6H PRN BOTH EYES IRRITATION Last administered on 16:30; Admin Dose 1 DROP; Start 09/30/16 at 20:00 Linezolid (Zyvox 600mg/D5W (Pmx)) 300 ml @ 300 mls/hr Q12 IVPB Last administered on 10/02/16 20:21; Admin Dose 300 MLS/HR; Start 10/01/16 at 21:00 Acetaminophen (Tylenol Liquid) 650 mg Q4H PRN GTB FEVER/PAIN; Start 10/03/16 at 04:00 WERNER CHURCH Oct 03, 2016 09:27
[2016-10-03] MEDS: LINEZOLID 600 MG/D5W (PMX) 300 ML IVPB SCH ×2 (09:34→21:00)
--- NOTE | 2016-10-03 09:43 | RADRPT ---
PROCEDURE: XR Chest. CLINICAL INDICATION: Congestive heart failure TECHNIQUE: Single frontal chest x-ray. COMPARISON: 10/02/2016 FINDINGS: The lungs are clear of acute infiltrates, edema, effusions, or masses. There is hyperinflation of th e lungs consistent with COPD. Left arm PICC line is in place unchanged.. The cardiomediastinal silh ouette is unremarkable. Multiple old right rib fractures are again noted.. Calcific atherosclerosi s of the aorta is present. IMPRESSION: Left arm PICC line in place unchanged. Old right rib fractures. No acute cardiopulmonary disease.. RPTAT: GG .Ernst Clemons MD, MD Date Time Electronically viewed and signed by .Ernst Clemons MD, MD on 10/03/2016 09:43 .L/
[2016-10-03] MEDS: POLYETHYLENE GLYCOL 17 GM PACKET GTB SCH ×2 (09:55→20:54)
[2016-10-03] MEDS: COLISTIMETHATE 75 MG in SOD CHLORIDE 0.9% 100 ML IVPB SCH ×2 (10:02→21:00)
--- NOTE | 2016-10-03 10:28 | PN ---
DATE: 10/03/2016 SUBJECTIVE: The patient remains critical, but improving. The patient is currently off pressor supp ort. Patient is tachypneic this morning. There has been no reports of hemoptysis, hematemesis or hematochezia. Urinary output has been adequate. No other acute events noted. OBJECTIVE: VITAL SIGNS: Blood pressure is 126/29, respiratory rate 29, heart rate 109, temperature 98.9. I'S AND O'S: The patient had 1.5 liters in, 1.2 liters out. HEENT: Head is normocephalic. NECK: Supple. HEART: Regular rate. LUNGS: Show diminished breath sounds at the base. ABDOMEN: Soft, nontender to palpation. No rebound or guarding. Positive PEG. EXTREMITIES: Negative for clubbing, cyanosis. No edema. DERMATOLOGIC: No rashes. MUSCULOSKELETAL: Positive decubitus wound. NEUROLOGIC: Limited exam due to lack of patient cooperation. MEDICATIONS: Patient's medication reviewed. LABORATORY DATA: Shows sodium 140, potassium 3.4, chloride 115, BUN 32, creatinine 1.11. White cou nt 16.2, hemoglobin 10.0, hematocrit 29.6, platelet count is 303. The patient's blood cultures and sputum cultures have been reviewed. IMAGING: Chest x-ray has been reviewed finding shows old healed ribs. ASSESSMENT AND PLAN: This is a 75-year-old male who presents with: 1. Sepsis status post shock. Underlying etiology is likely multifactorial due to decubitus wound, possibly urinary tract infection. The patient is currently off pressor support. Plan is to continu e current regimen of antibiotic therapy. Cultures have been reviewed and negative to date. We will follow up with infectious disease for further recommendations. 2. Acute hypoxemic respiratory failure, etiology is likely secondary to sepsis, possible diastolic heart failure. We will continue current treatment plan. Continue supplemental oxygen and nebulizer s. We will follow up chest x-ray. If there are findings consistent with congestion we will give diu retic therapy and monitor closely. 3. Dysphagia. Status post PEG. Continue tube feeding. 4. History of tongue cancer status post radiation. The patient has possible metastasis to the pelv is. We will continue to monitor. The patient was seen by oncology. 5. Pelvic mass, possibly consistent with adenocarcinoma from metastasis from primary pathology. Th e patient is not a candidate for chemo. We will continue to monitor. 6. Stage IV decubitus wound. Continue wound care. 7. Parkinson's disease versus neurodegenerative disorder. Continue to monitor. Continue Sinemet. 8. History of diastolic heart failure. Continue medical management. 9. Anemia. Continue to monitor hemoglobin and hematocrit levels. 10. History of prostate cancer status post TURP, status post suprapubic catheter. Continue to grant tor. The patient was seen by urology previously. 11. History of bilateral hydronephrosis secondary to likely pelvic mass. We will continue to monit or. 12. Hypertension. Blood pressure currently controlled. 13. Chronic neurogenic bladder, status post TURP, status post suprapubic catheter. We will continu e. 14. Acute encephalopathy on advanced dementia. Etiology is toxic metabolic. Continue supportive c are. 15. Hypokalemia. Continue to monitor and replete. 16. Hypernatremia. We will increase free water flushes 200 mL q.4h. 17. Gastrointestinal and deep venous thrombosis prophylaxis. Continue proton pump inhibitor and Lo venox. Please note I spent over 40 minutes of critical care time with this patient. Dictated By: JAX ANDRADE/CHELSI Conf#: [id number] DID#: [id number]
[2016-10-03] MEDS: metroNIDAZOLE 500 MG/NS (PMX) 100 ML IVPB SCH ×2 (15:58→21:00)
[2016-10-03] MEDS ORDERED: MAGNESIUM SULFATE 1 GM/D5W 100 ML IVPB ONE (16:00)
--- NOTE | 2016-10-03 16:24 | PN ---
DATE: 10/03/2016 SUBJECTIVE: No events overnight. The patient is lying comfortably in bed, nonverbal, noncommunicat penelope. No fevers. VITAL SIGNS: Temperature 98.4, pulse 100, respirations 34, blood pressure 121/69, saturation 100 on 3 liters. LABORATORY DATA: WBC 16.2, H and H 10 and 29.6, platelets 303, neutrophils 89.9. BUN 32, creatinin e 1.11. Sodium 148, potassium 3.4. MICROBIOLOGY: Repeat blood culture and urine cultures negative. DIAGNOSTICS: Chest x-ray this morning revealed no acute cardiopulmonary disease. INDWELLINGS: PEG, suprapubic catheter, left upper extremity PICC line placed on 10/02/2016. ANTIMICROBIALS: 1. Zyvox. 2. Fluconazole. 3. Colistin. 4. Flagyl. PHYSICAL EXAMINATION: GENERAL: This is a chronically ill-appearing, elderly man, who is lying comfortably in bed. HEENT: Head atraumatic, normocephalic. Sclerae anicteric. Buccal mucosa dry. NECK: Supple, trachea midline. CHEST: Rise symmetrical. Breath sounds diminished to bases with scattered rhonchi. HEART: S1, S2. ABDOMEN: Soft. Bowel tones hypoactive. EXTREMITIES: Without cyanosis. Bilateral edema. ASSESSMENT: 1. Severe sepsis with shock, off pressors. 2. Multiple infected decubitus with possible osteomyelitis, wound cultures at [facility] grew multi-drug resistant organisms, covered with Colistin, VRE, also positive for Bacteroides fragilis, on Flagyl. 3. Status post pneumonia, urinary tract infection. 4. Chronic encephalopathy. 5. Metastatic disease with large pelvic mass, history of tongue carcinoma status post radiation and infection. 6. History of prostate carcinoma. 7. Suprapubic catheter. 8. ALLERGY TO PENICILLIN. PLAN: Patient remains unchanged. Covered with appropriate antimicrobials. Continue present care. Follow recommendations of consultants. Dictated By: LUIS ARMANDO MIRANDA TRIMMER SAWYER for MICHAEL RIVAS/CHELSI Conf#: [id number] DID#: [id number]
--- NOTE | 2016-10-03 17:22 | PN ---
DATE: 10/03/2016 CARDIOLOGY FOLLOWUP SUBJECTIVE: Discussed with the staff. Rhythm strip reviewed. The patient remains in sinus tachyca rdia. Remains nonverbal. Blood pressure has remained stable off of pressors. MEDICATIONS: Reviewed. PHYSICAL EXAMINATION: VITAL SIGNS: Temperature 98.4, heart rate of 115, blood pressure 120/60, respiration rate of 32. S aturating 98%. HEENT: Normocephalic, atraumatic. GENERAL: Elderly gentleman. CARDIOVASCULAR: Tachycardic. PULMONARY: With no wheezes anteriorly. Mild rhonchi, diffuse. GASTROINTESTINAL: Soft, nontender. EXTREMITIES: With trivial lower extremity edema. NEUROLOGIC: Opens eyes. Does not follow commands and answer questions. LABORATORY: WBC of 16.2, hemoglobin 10.0, platelets of 303. Sodium 148, potassium 3.4, BUN 32, cre atinine 1.1, glucose of 76. Magnesium is 1.7. IMAGING: Chest x-ray shows left PICC line unchanged, old right ____ fracture, no acute cardiopulmon colton disease. ASSESSMENT AND PLAN: 1. Status post septic shock. Currently blood pressure has significantly improved. 2. Sinus tachycardia secondary to above. 3. Respiratory failure. 4. History of tongue cancer. 5. History of pelvis mass. 6. Multiple decubitus ulcers. 7. Parkinson disease. 8. Congestive heart failure with diastolic dysfunction and normal left ventricular systolic functio n. 9. History of prostate carcinoma. 10. History of hypertension, currently hypotensive, but stable. 11. Encephalopathy. 12. Electrolyte abnormalities. RECOMMENDATIONS: Continue with the respiratory care. Antibiotic as per ID's recommendations. Elec trolytes including potassium and magnesium will be replaced as needed. Will monitor on telemetry. Dictated By: KATIE DURÁN MD AV/NTS Conf#: [id number] DID#: [id number] CC: JAX SLATER DO;*EndCC*
[2016-10-03] MEDS: ARTIFICIAL TEARS 15 ML OPH BOTH EYES SCH (18:06)
[2016-10-03] MEDS: SENNA (PO SYG) GTB SCH (20:54)
[2016-10-03] MEDS: DOXAZOSIN 1 MG TAB PO SCH (20:55)
[2016-10-03] MEDS: ASCORBIC ACID 500 MG TAB GTB SCH (20:55)
[2016-10-04] VITALS (24 sets, daily range): BP systolic 78–125; BP diastolic 42–78; PULSE 92–120; RESP 19–40
[2016-10-04] MEDS: traMADol 50 MG TAB GTB PRN ×4 (00:25→20:03)
[2016-10-04] MEDS: ACETAMINOPHEN 650MG/20.3ML CUP GTB PRN ×2 (00:26→05:37)
[2016-10-04] MEDS: LEVALBUTEROL (NEB) 0.63 MG/3 ML AMP HHN SCH ×4 (01:49→20:59)
[2016-10-04 05:04] LABS: EOSINOPHILS # 0.2 10^3/ul (0.0-0.5); EOSINOPHILS % 1.1 % (0.0-7.0); HEMATOCRIT 26.7 % (42.0-52.0); HEMOGLOBIN 8.9 g/dl (14.0-18.0); LYMPHOCYTES # 0.6 10^3/ul (0.8-2.9); LYMPHOCYTES % 3.5 % (15.0-51.0); MEAN CORPUSCULAR HEMOGLOBIN 30.4 pg (29.0-33.0); MEAN CORPUSCULAR HGB CONC 33.5 g/dl (32.0-37.0); MEAN CORPUSCULAR VOLUME 90.6 fl (82.0-101.0); MEAN PLATELET VOLUME 8.7 fl (7.4-10.4); MONOCYTE # 0.9 10^3/ul (0.3-0.9); MONOCYTES % 5.1 % (0.0-11.0); NEUTROPHIL # 15.5 10^3/ul (1.6-7.5); NEUTROPHILS % 90.3 % (39.0-77.0); PLATELET COUNT 298 10^3/UL (140-440); RED BLOOD COUNT 2.95 10^6/ul (4.70-6.10); RED CELL DISTRIBUTION WIDTH 15.8 % (11.5-14.5); UNCORRECTED WBC 17.1 10^3/ul (4.8-10.8); WHITE BLOOD COUNT 17.1 10^3/ul (4.8-10.8)
[2016-10-04 05:10] LABS: POTASSIUM 3.7 mmol/L (3.5-5.1)
[2016-10-04 05:12] LABS: CREATININE 1.16 mg/dl (0.61-1.24)
[2016-10-04 05:13] LABS: PHOSPHORUS 3.6 mg/dl (2.5-4.9)
[2016-10-04 05:14] LABS: CALCIUM 9.3 mg/dl (8.4-10.2); MAGNESIUM 1.9 mg/dl (1.7-2.5)
[2016-10-04] MEDS: metroNIDAZOLE 500 MG/NS (PMX) 100 ML IVPB SCH ×3 (05:38→22:03)
[2016-10-04 06:00] LABS: CONDITION 1; LH ANALYZER COMMENTS 1
[2016-10-04] MEDS: MULTIVITAMINS 5 ML CUP GTB SCH (09:11)
[2016-10-04] MEDS: FERROUS SULFATE 60 MG/ML 5ML CUP GTB SCH ×2 (09:11→21:55)
[2016-10-04] MEDS: FLUCONAZOLE 100 MG TAB GTB SCH (09:11)
[2016-10-04] MEDS: ASCORBIC ACID 500 MG TAB GTB SCH ×2 (09:11→22:03)
[2016-10-04] MEDS: ENOXAPARIN 40 MG/0.4 ML SYG SC SCH (09:12)
[2016-10-04] MEDS: BACITRACIN 0.9 GM OINT TOP SCH ×2 (09:12→21:00)
[2016-10-04] MEDS: COLISTIMETHATE 75 MG in SOD CHLORIDE 0.9% 100 ML IVPB SCH ×2 (09:15→21:56)
[2016-10-04] MEDS: LINEZOLID 600 MG/D5W (PMX) 300 ML IVPB SCH ×2 (09:16→21:56)
--- NOTE | 2016-10-04 09:48 | CONS ---
Date/Time of Note Date/Time of Note DATE: 10/04/16 TIME: 09:44 Assessment/Plan Assessment/Plan Additional Assessment/Plan Assessment and recommendations; next 1. Patient admitted with hypotension with interval resolution. Currently off pressor support. 2. Severe end-stage lung disease. 3. Advanced Parkinson's disease. 4. Extremely poor mental status. 5. Prior history of tracheostomy with subsequent decannulation. Continue current treatment for now overall prognosis remains extremely poor. Ethics committee evaluation needs to be performed. Consultation Date/Type/Reason Admit Date/Time Sep 30, 2016 at 17:03 Type of Consultation: Pulmonary/critical care 24 HR Interval Summary Free Text/Dictation Patient's condition remains unchanged. Remains unresponsive. Which is his underlying mental status. Appears mildly tachypneic. Abdomen examination; elderly male awake but unresponsive to any commands. Exam/Review of Systems Vital Signs Vitals Vital Signs Date Time Temp Pulse Resp B/P Pulse Ox O2 Delivery O2 Flow Rate FiO2 10/04/16 08:19 2.0 10/04/16 08:19 109 39 98 Nasal Cannula 10/04/16 07:00 90/53 10/04/16 04:00 98.3 10/02/16 02:06 28 Intake and Output 10/03/16 10/03/16 10/04/16 15:00 23:00 07:00 Intake Total 1050 ml 1210 ml 990 ml Output Total 500 ml 370 ml 540 ml Balance 550 ml 840 ml 450 ml Exam HEENT examination; supple neck, no JVD. Patient has a few remaining teeth. There is a well-healed tracheostomy scar. Chest examination; diminished breath sounds throughout. No added sounds. S1- S2 audible, no murmurs. Regular rhythm. Abdomen examination; soft, nondistended. G-tube in place. Bowel sounds audible. Extremity examination; no peripheral edema. 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 Results Result Diagram: 10/04/16 0400 10/04/16 0400 Results 24 hrs Laboratory Tests Test 10/04/16 04:00 Anion Gap 15 Basophils # 0.0 Basophils % 0.0 Blood Morphology Comment Blood Urea Nitrogen 38 H Calcium Level 9.3 Carbon Dioxide Level 19 L Chloride Level 115 H Creatinine 1.16 Eosinophils # 0.2 Eosinophils % 1.1 Glucose Level 102 Hematocrit 26.7 L Hemoglobin 8.9 L Lymphocytes # 0.6 L Lymphocytes % 3.5 L Magnesium Level 1.9 Mean Corpuscular Hemoglobin 30.4 Mean Corpuscular Hemoglobin Concent 33.5 Mean Corpuscular Volume 90.6 Mean Platelet Volume 8.7 Monocytes # 0.9 Monocytes % 5.1 Neutrophils # 15.5 H Neutrophils % 90.3 H Nucleated Red Blood Cells # 0.0 Nucleated Red Blood Cells % 0.0 Phosphorus Level 3.6 Platelet Count 298 Potassium Level 3.7 Red Blood Count 2.95 L Red Cell Distribution Width 15.8 H Sodium Level 145 H White Blood Count 17.1 H Medications Medications Current Medications Acetaminophen (Tylenol Liquid) 650 mg Q6 PRN GTB PAIN AND OR ELEVATED TEMP Last administered on 10/04/16 05:37; Admin Dose 650 MG; Start 09/30/16 at 18:00 Eye Lubricant (Artificial Tears Oph) 2 drop HS BOTH EYES Last administered on 18:06; Admin Dose 2 DROP; Start 09/30/16 at 21:00 Polyethylene Glycol (Miralax) 17 gm BID GTB Last administered on 10/03/16 20: 54; Admin Dose 17 GM; Start 09/30/16 at 21:00; Status Future Hold Zolpidem Tartrate (Ambien) 5 mg HS PRN PO INSOMNIA; Start 09/30/16 at 18:00 Senna (Senokot (Ped)) 5 ml HS GTB Last administered on 10/03/16 20:54; Admin Dose 5 ML; Start 09/30/16 at 21:00; Status Future Hold Bacitracin 1 applic 1 applic BID TOP Last administered on 10/04/16 09:12; Admin Dose 1 APPLIC; Start 09/30/16 at 21:00 Colistimethate Sodium/Sodium Chloride (Coly-Mycin/NS) 100 ml @ 200 mls/hr Q12 IVPB Last administered on 10/04/16 09:15; Admin Dose 200 MLS/HR; Start at 21:00 Doxazosin Mesylate (Cardura) 1 mg HS PO ; Start 09/30/16 at 21:00; Status Future Hold Enoxaparin Sodium (Lovenox) 40 mg DAILY SC Last administered on 10/04/16 09:12 ; Admin Dose 40 MG; Start 10/01/16 at 09:00 Ferrous Sulfate (Feosol Liquid Cup) 300 mg BID GTB Last administered on 09:11; Admin Dose 300 MG; Start 09/30/16 at 21:00 Fluconazole (Diflucan) 100 mg DAILY GTB Last administered on 10/04/16 09:11; Admin Dose 100 MG; Start 10/01/16 at 09:00 Hypromellose 1 drop 1 drop Q6H PRN BOTH EYES IRRITATION Last administered on 16:30; Admin Dose 1 DROP; Start 09/30/16 at 20:00 Linezolid (Zyvox 600mg/D5W (Pmx)) 300 ml @ 300 mls/hr Q12 IVPB Last administered on 10/04/16 09:16; Admin Dose 300 MLS/HR; Start 10/01/16 at 21:00 Acetaminophen (Tylenol Liquid) 650 mg Q4H PRN GTB FEVER/PAIN; Start 10/03/16 at 04:00 Ascorbic Acid (Vitamin C) 500 mg BID GTB Last administered on 10/04/16 09:11; Admin Dose 500 MG; Start 10/03/16 at 21:00 Multivitamins 5 ml 5 ml DAILY GTB Last administered on 10/04/16 09:11; Admin Dose 5 ML; Start 10/04/16 at 09:00 Metronidazole (Flagyl 500 Mg (Pmx)) 100 ml @ 100 mls/hr Q8 IVPB Last administered on 10/04/16 05:38; Admin Dose 100 MLS/HR; Start 10/03/16 at 14:30 Tramadol HCl (Ultram) 75 mg Q6H PRN GTB PAIN; Start 10/04/16 at 12:00 WERNER CHURCH Oct 04, 2016 09:47
--- NOTE | 2016-10-04 10:27 | PN ---
DATE: 10/04/2016 CARDIOLOGY FOLLOWUP SUBJECTIVE: Discussed with the staff. Rhythm strip was reviewed. The patient remains in ICU, nonv erbal, still on oxygen. Blood pressure on the low side, but is still off of pressors. Still remain s in sinus rhythm and sinus tachycardia. Heart rate improved with pain medication reportedly as per discussion with the RN. MEDICATIONS: Reviewed. PHYSICAL EXAMINATION: VITAL SIGNS: Temperature 98.3, heart rate of 94, blood pressure 90/53, respiratory rate of 29, satu rating 100%. HEENT: Normocephalic, atraumatic. Elderly, cachectic gentleman. CARDIOVASCULAR: Regular rate and rhythm. PULMONARY: Anteriorly with no wheezes, with mild diffuse rhonchi. GASTROINTESTINAL: Soft, nontender. EXTREMITIES: With positive ankle edema. NEUROLOGIC: Opens his eyes, does not respond. LABORATORY DATA: WBC of 17.1, hemoglobin 8.9, platelets of 298. Sodium 145, potassium 3.7, BUN of 38, creatinine of 1.16, glucose of 102. ASSESSMENT AND PLAN: 1. Septic shock, currently blood pressure has improved. 2. Respiratory failure. 3. Sinus tachycardia secondary to above. 4. History of tongue cancer. 5. History of pelvic mass, possible cancer. 6. Multiple decubitus ulcers. 7. Parkinson's disease. 8. Fluid overload secondary to congestive heart failure secondary to diastolic dysfunction. 9. Severe encephalopathy. RECOMMENDATIONS: We will continue with supportive care. We will continue with the current care. A ntibiotic is managed as per ID recommendation. Dictated By: KATIE BURR/CHELSI Conf#: [id number] DID#: [id number] CC: JAX SLATER DO;*EndCC*
--- NOTE | 2016-10-04 12:04 | PN ---
DATE: 10/04/2016 SUBJECTIVE: The patient remains tachypneic and hypotensive overnight, with systolic pressures in th e 90s. No other acute events noted. No hemoptysis, hematemesis, hematochezia. No fever noted. Pl ease note I did attempt to contact the patient's for discussing goals of care, I am waiting for a response. OBJECTIVE: VITAL SIGNS: Blood pressure is currently 90/53, respiration is 29, pulse 94, temperature 98.3. INTAKE AND OUTPUT: The patient had 3 liters in, 1.4 liters out. HEENT: Head is normocephalic. NECK: Supple. HEART: Tachycardic. LUNGS: Show diminished breath sounds at the base. ABDOMEN: Soft, nontender to palpation. No rebound or guarding. EXTREMITIES: Negative for clubbing, cyanosis, no edema. DERMATOLOGIC: No rashes. MUSCULOSKELETAL: Positive decubitus wound. NEUROLOGIC: No change in exam. MEDICATIONS: The patient's medications have been reviewed. LABORATORY DATA: Showed sodium 145, potassium 3.7, chloride 115, bicarbonate is 19, BUN 38, creatin ine 1.16, white count is 17.1, hemoglobin 8.9, hematocrit 26.7, platelet count 298,000. IMAGING: Chest x-ray from 10/03/2016 shows no acute cardiopulmonary disease, old healed fractures. MICROBIOLOGY: Blood cultures and urine cultures have been negative to date. ASSESSMENT AND PLAN: 1. Sepsis, status post shock. Underlying etiology is unclear, possibly due to decubitus wound, pos sible urinary tract infection. The patient is currently off pressor support, although remains hypot ensive with systolic pressures in the 90s. Cultures have been reviewed and have been negative to da te. At this point, continue current treatment plan. Continue IV antibiotics. Will follow up with Infectious Disease for further recommendations. Procalcitonin level will be checked. Monitor close ly. 2. Acute hypoxemic respiratory failure, etiology secondary to sepsis, chronic obstructive pulmonary disease. The patient's chest x-ray reviewed. No acute findings. We will continue supplemental ox ygen. Continue to monitor. Follow up with Pulmonary. 3. History of tongue cancer, status post radiation therapy. The patient has possible metastasis to pelvis. Continue to observe. The patient subsequently seen by Oncology. 4. Pelvic abscess, concerning for possible adenocarcinoma. We will continue to monitor. 5. PEG tube feeding. 6. Stage IV decubitus wound. Continue wound care. 7. Parkinson's disease/neurodegenerative disorder. Continue to monitor. 8. History of diastolic heart failure. Currently appears euvolemic. Continue medical regimen. 9. Anemia. Monitor hemoglobin and hematocrit levels. 10. History of prostate cancer, status post transurethral resection of the prostate. The patient h as a suprapubic catheter. Continue to monitor. 11. Status post right hydronephrosis, likely secondary to pelvic mass. Continue to observe. Nancie nt was evaluated by Urology previously. 12. Chronic neurogenic bladder. Continue to monitor. 13. Acute encephalopathy and advanced dementia, etiology is toxic metabolic. Continue supportive c are. 14. Hypernatremia, improved. Continue free water flushes. 15. Hypokalemia. Continue to monitor and replete. 16. Gastrointestinal/deep vein thrombosis prophylaxis. Continue proton pump inhibitor and Lovenox. Please note I spent over 40 minutes of critical care time with this patient. Discussed the case wit hospital staff. I also attempt to contact the patient's regarding overall goals of care. Dictated By: JAX ANDRADE/CHELSI Conf#: [id number] DID#: [id number]
--- NOTE | 2016-10-04 12:18 | PN ---
DATE: 10/04/2016 SUBJECTIVE: No events overnight. No fevers. The patient is lying comfortably in bed. He is nonve rbal, noncommunicative with shallow breathing and sounds very congested. WBC today 17.1, platelets 298, neutrophils 90.3, BUN 38, creatinine 1.16. OBJECTIVE: VITAL SIGNS: Temperature 98.3, pulse 94, respirations 29, blood pressure 90/53, saturation 100 on 2 liters. INDWELLINGS: The patient had PICC line placed on 10/02/2016, suprapubic catheter and PEG. ANTIMICROBIALS: 1. Flagyl. 2. Zyvox. 3. Fluconazole. 4. Colistin. PHYSICAL EXAMINATION: GENERAL: This is a fragile, ill-appearing, elderly man who is lying comfortably in bed. HEENT: Head atraumatic, normocephalic. Sclerae anicteric. Buccal mucosa dry. NECK: Supple. CHEST: Rise symmetrical. Breath sounds with bilateral rales. HEART: S1, S2. ABDOMEN: Soft. Bowel tones hypoactive. EXTREMITIES: Bilateral edema. SKIN: With multiple unstageable decubitus. ASSESSMENT: 1. Severe sepsis. 2. Multiple infected decubitus with wound cultures at [facility] grew Acinetobacter baumannii, VRE and Bacteroides fragilis. 3. Dysphagia with significant secretion retention and possible ongoing aspiration. 4. Status post urinary tract infection. 5. Chronic encephalopathy. 6. Metastatic disease with large pelvic mass per CT. 7. ALLERGY TO PENICILLIN. PLAN: The patient remains unchanged, overall doing poorly. He is covered with appropriate antimicr obials. Continue present care. Continue surgical re-evaluation for possible repeat debridement. C ontinue anti-aspiration measures, aggressive pulmonary toilet. Dictated By: LUIS ARMANDO MIRANDA REEL AND REWINDER OPERATOR for MICHAEL MONAHAN MD NI/NTS Conf#: [id number] DID#: [id number]
[2016-10-04] MEDS: ARTIFICIAL TEARS 15 ML OPH BOTH EYES SCH (21:56)
[2016-10-05] VITALS (22 sets, daily range): BP systolic 80–131; BP diastolic 55–109; PULSE 83–121; RESP 22–42
[2016-10-05] MEDS ORDERED: FUROSEMIDE 40 MG INJ IV ONE
[2016-10-05] MEDS: LEVALBUTEROL (NEB) 0.63 MG/3 ML AMP HHN SCH ×4 (01:43→20:31)
[2016-10-05] MEDS: traMADol 50 MG TAB GTB PRN ×2 (03:43→21:38)
[2016-10-05 04:49] LABS: EOSINOPHILS # 0.1 10^3/ul (0.0-0.5); EOSINOPHILS % 0.6 % (0.0-7.0); HEMATOCRIT 27.1 % (42.0-52.0); LYMPHOCYTES # 0.6 10^3/ul (0.8-2.9); LYMPHOCYTES % 2.8 % (15.0-51.0); MEAN CORPUSCULAR HEMOGLOBIN 30.2 pg (29.0-33.0); MEAN CORPUSCULAR HGB CONC 33.3 g/dl (32.0-37.0); MEAN CORPUSCULAR VOLUME 90.6 fl (82.0-101.0); MEAN PLATELET VOLUME 8.8 fl (7.4-10.4); MONOCYTE # 0.9 10^3/ul (0.3-0.9); MONOCYTES % 4.2 % (0.0-11.0); NEUTROPHIL # 20.4 10^3/ul (1.6-7.5); NEUTROPHILS % 92.4 % (39.0-77.0); PLATELET COUNT 316 10^3/UL (140-440); UNCORRECTED WBC 22.1 10^3/ul (4.8-10.8); WHITE BLOOD COUNT 22.1 10^3/ul (4.8-10.8)
[2016-10-05 04:59] LABS: POTASSIUM 3.6 mmol/L (3.5-5.1)
[2016-10-05 05:02] LABS: CREATININE 1.33 mg/dl (0.61-1.24)
[2016-10-05 05:03] LABS: CALCIUM 9.7 mg/dl (8.4-10.2); MAGNESIUM 1.9 mg/dl (1.7-2.5); PHOSPHORUS 3.4 mg/dl (2.5-4.9)
[2016-10-05] MEDS: metroNIDAZOLE 500 MG/NS (PMX) 100 ML IVPB SCH ×3 (05:14→22:00)
[2016-10-05 05:17] LABS: CONDITION 1; LH ANALYZER COMMENTS 1; SUSPECT 1
--- NOTE | 2016-10-05 07:50 | PN ---
DATE: 10/05/2016 CARDIOLOGY FOLLOWUP SUBJECTIVE: Discussed with the staff. The patient remains in sinus rhythm, sinus tachycardia. He is nonverbal. Blood pressure has been on the low side, but still off of pressors. MEDICATIONS: Reviewed. PHYSICAL EXAMINATION: VITAL SIGNS: Temperature 98.9, heart rate of 112, blood pressure 97/61, respiration rate of 30, sat urating 99%. HEENT: Normocephalic, atraumatic. Elderly cachectic gentleman. Pupils are equal. CARDIOVASCULAR: Tachycardic. Systolic murmur. PULMONARY: Mild rhonchi, diffuse. GASTROINTESTINAL: Soft, nontender. Status post PEG placement. EXTREMITIES: Positive edema. NEUROLOGIC: Does not respond to any verbal stimuli. LABORATORY: WBC of 22.1, hemoglobin of 9.0, platelets 316. Sodium 146, potassium 3.6, BUN of 40, c reatinine 1.33, glucose of 84, magnesium is 1.9. ASSESSMENT AND PLAN: 1. Sepsis, status post shock, currently blood pressure is improved. 2. Respiratory failure. 3. History of tongue cancer. 4. Sinus tachycardia. 6. cancer, possible adenocarcinoma versus others. 7. Dysphagia, status post percutaneous endoscopic gastrostomy placement. 8. Multiple wounds including stage IV decubitus ulcer wound. 9. History of Parkinson disease. 10. Neurodegenerative disorder. 11. Encephalopathy. 12. Heart failure secondary to diastolic dysfunction. 13. Anemia. 14. History of prostate carcinoma. 15. History of electrolyte abnormality. 16. Hypernatremia. 17. Hypokalemia. RECOMMENDATIONS: Continue with supportive care. Antibiotic is managed as per ID recommendation. P atient on multiple antibiotics including . DVT prophylaxis will be continued as well. We will continue to monitor him closely, and if needed, pressors will be started. Long-term prognosis appe ars to be very poor, though. Dictated By: KATIE BURR/CHELSI Conf#: [id number] DID#: [id number] CC: JAX SLATER DO;*EndCC*
[2016-10-05] MEDS ORDERED: SOD CHLORIDE 0.9% 1,000 ML IV SCH (08:30)
[2016-10-05] MEDS: FLUCONAZOLE 100 MG TAB GTB SCH (09:15)
[2016-10-05] MEDS: ALBUMIN HUMAN 25% 50 ML IV SCH ×2 (09:15→16:21)
[2016-10-05] MEDS: ASCORBIC ACID 500 MG TAB GTB SCH ×2 (09:15→21:32)
[2016-10-05] MEDS: MULTIVITAMINS 5 ML CUP GTB SCH (09:15)
[2016-10-05] MEDS: FERROUS SULFATE 60 MG/ML 5ML CUP GTB SCH ×2 (09:15→21:32)
[2016-10-05] MEDS: LINEZOLID 600 MG/D5W (PMX) 300 ML IVPB SCH ×2 (09:16→21:33)
--- NOTE | 2016-10-05 09:16 | PN ---
DATE: 10/05/2016 SUBJECTIVE: The patient continues to be tachypneic during the course of the evening. The patient w as noted to be hypotensive as well. Currently on a face mask and nonrebreather. No other acute grant nts noted. No hemoptysis, hematemesis or hematochezia. OBJECTIVE: VITAL SIGNS: Blood pressure is 97/67, respirations are 37, pulse 112, temperature 98.6. I'S AND O'S: The patient had 3 L in with 1.4 L out. HEENT: Head is normocephalic. NECK: Supple. HEART: Regular rate. LUNGS: Show diminished breath sounds at the base. ABDOMEN: Soft, nontender to palpation. No rebound or guarding. EXTREMITIES: Negative for clubbing, cyanosis, no edema. DERMATOLOGIC: No rashes. MUSCULOSKELETAL: No joint effusions. NEUROLOGIC: No change in exam. LABORATORY DATA: Shows sodium 146, potassium 3.6, chloride 113, BUN 40, creatinine 1.33. White cou nt 22.2, hemoglobin 9, hematocrit 27.1, platelet count 316. ASSESSMENT AND PLAN: 1. Severe sepsis. Etiology unclear, possibly secondary decubitus wound, urinary tract infection. The patient is currently off pressors, although systolic pressures remain low. At this point, gabriel nue current treatment plan. Continue IV antibiotics. Will follow up with infectious disease for fu rther recommendations. Monitor closely. 2. Hypertension. Etiology may be due to sepsis. Will give the patient a gentle fluid challenge of IV albumin. Will monitor blood pressures closely. 3. Acute hypoxemic respiratory failure, etiology secondary to sepsis, COPD, will continue current t reatment plan. Continue supplemental oxygen. Continue facemask. Continue nebulizer therapy. Foll ow up with pulmonary. 4. History of tongue cancer status post radiation. The patient is possible metastasis to pelvis. We will continue to observe, not a chemotherapy or surgical candidate. 5. Dysphagia status post percutaneous endoscopic gastrostomy. Continue tube feeding. 6. Stage IV decubitus wound. Continue wound care. 7. Parkinson's disease/neurodegenerative disorder. Continue to monitor. 8. History of diastolic heart failure. Continue medical management. Follow up with cardiology. 9. Anemia. Continue to monitor hemoglobin and hematocrit levels. 10. History of prostate cancer status post transurethral resection of prostate. Continue to monito r. 11. Right-sided hydronephrosis secondary to pelvic masses. Continue to monitor. The patient was e valuated by urology previously. 12. Chronic neurogenic bladder. 13. Acute encephalopathy and advanced dementia. Etiology is toxic metabolic. Continue supportive care. 14. Hypernatremia. Continue free water flushes. 15. Nonoliguric acute kidney injury. Etiology is likely multifactorial secondary to hemodynamics, possible sepsis. Other contributing factors could be nephrotoxicity from colistin. Will continue t o monitor renal function closely. Will check UA with microanalysis. Will give gentle fluid challen ge. 16. Gastrointestinal and deep venous thrombosis prophylaxis. Continue proton pump inhibitor and Lo venox. Please note, I discussed yesterday with the patient's about changing code status. She continue s to insist the patient to be full code. Please note I spent over 40 minutes of critical care time with this patient. Dictated By: JAX ANDRADE/CHELSI Conf#: [id number] DID#: [id number]
[2016-10-05] MEDS: ENOXAPARIN 40 MG/0.4 ML SYG SC SCH (09:17)
--- NOTE | 2016-10-05 09:21 | CONS ---
Date/Time of Note Date/Time of Note DATE: 10/05/16 TIME: 09:16 Assessment/Plan Assessment/Plan Additional Assessment/Plan Assessment and recommendations; next 1. Patient admitted for hypotension with interval resolution. 2. End-stage lung disease. 3. Extremely poor mental status. 4. Advanced Parkinson's disease. 5. History of prior tracheostomy with subsequent decannulation. We will continue current treatment. A CODE STATUS needs to be discussed with the family. Prognosis remains poor. Consultation Date/Type/Reason Admit Date/Time Sep 30, 2016 at 17:03 Type of Consultation: Pulmonary/critical care 24 HR Interval Summary Free Text/Dictation Patient's condition remains unchanged. Remains essentially unresponsive. Patient does appear tachypneic. General examination; elderly male means unresponsive. Exam/Review of Systems Vital Signs Vitals Vital Signs Date Time Temp Pulse Resp B/P Pulse Ox O2 Delivery O2 Flow Rate FiO2 10/05/16 08:23 105 30 100 Nasal Cannula 4.0 10/05/16 06:00 97/61 10/05/16 00:00 98.9 10/02/16 02:06 28 Intake and Output 10/04/16 10/04/16 10/05/16 15:00 23:00 07:00 Intake Total 1260 ml 1280 ml 770 ml Output Total 400 ml 440 ml 630 ml Balance 860 ml 840 ml 140 ml Exam HEENT examination; supple neck, no JVD. There is a well-healed tracheostomy scar. With a small bilaterally. No neck masses. No thyromegaly. No lymphadenopathy. Chest examination; diminished breath sounds throughout. S1-S2 audible, no murmurs. Regular rhythm. Abdomen examination; soft, no organomegaly. Bowel sounds audible. Next Extremity examination; no peripheral edema. ROLL CAPPER examination; patient is minimally awake and remains unresponsive Results Result Diagram: 10/05/16 0400 10/05/16 0400 Results 24 hrs Laboratory Tests Test 10/05/16 04:00 Anion Gap 18 H Basophils # Pending Basophils % Pending Blood Morphology Comment Blood Urea Nitrogen 40 H Calcium Level 9.7 Carbon Dioxide Level 19 L Chloride Level 113 H Creatinine 1.33 H Eosinophils # Pending Eosinophils % Pending Glucose Level 84 Hematocrit 27.1 L Hemoglobin 9.0 L Lymphocytes # Pending Lymphocytes % Pending Magnesium Level 1.9 Mean Corpuscular Hemoglobin 30.2 Mean Corpuscular Hemoglobin Concent 33.3 Mean Corpuscular Volume 90.6 Mean Platelet Volume 8.8 Monocytes # Pending Monocytes % Pending Neutrophils # Pending Neutrophils % Pending Nucleated Red Blood Cells # Pending Nucleated Red Blood Cells % Pending Phosphorus Level 3.4 Platelet Count 316 Potassium Level 3.6 Red Blood Count 3.00 L Red Cell Distribution Width 16.0 H Sodium Level 146 H White Blood Count 22.1 #H Medications Medications Current Medications Acetaminophen (Tylenol Liquid) 650 mg Q6 PRN GTB PAIN AND OR ELEVATED TEMP Last administered on 10/04/16 05:37; Admin Dose 650 MG; Start 09/30/16 at 18:00 Eye Lubricant (Artificial Tears Oph) 2 drop HS BOTH EYES Last administered on 21:56; Admin Dose 2 DROP; Start 09/30/16 at 21:00 Polyethylene Glycol (Miralax) 17 gm BID GTB Last administered on 10/03/16 20: 54; Admin Dose 17 GM; Start 09/30/16 at 21:00; Status Future Hold Zolpidem Tartrate (Ambien) 5 mg HS PRN PO INSOMNIA; Start 09/30/16 at 18:00 Senna (Senokot (Ped)) 5 ml HS GTB Last administered on 10/03/16 20:54; Admin Dose 5 ML; Start 09/30/16 at 21:00; Status Future Hold Bacitracin 1 applic 1 applic BID TOP Last administered on 10/04/16 21:00; Admin Dose 1 APPLIC; Start 09/30/16 at 21:00 Colistimethate Sodium/Sodium Chloride (Coly-Mycin/NS) 100 ml @ 200 mls/hr Q12 IVPB Last administered on 10/04/16 21:56; Admin Dose 200 MLS/HR; Start at 21:00 Doxazosin Mesylate (Cardura) 1 mg HS PO ; Start 09/30/16 at 21:00; Status Future Hold Enoxaparin Sodium (Lovenox) 40 mg DAILY SC Last administered on 10/04/16 09:12 ; Admin Dose 40 MG; Start 10/01/16 at 09:00 Ferrous Sulfate (Feosol Liquid Cup) 300 mg BID GTB Last administered on 21:55; Admin Dose 300 MG; Start 09/30/16 at 21:00 Fluconazole (Diflucan) 100 mg DAILY GTB Last administered on 10/04/16 09:11; Admin Dose 100 MG; Start 10/01/16 at 09:00 Hypromellose 1 drop 1 drop Q6H PRN BOTH EYES IRRITATION Last administered on 16:30; Admin Dose 1 DROP; Start 09/30/16 at 20:00 Linezolid (Zyvox 600mg/D5W (Pmx)) 300 ml @ 300 mls/hr Q12 IVPB Last administered on 10/04/16 21:56; Admin Dose 300 MLS/HR; Start 10/01/16 at 21:00 Acetaminophen (Tylenol Liquid) 650 mg Q4H PRN GTB FEVER/PAIN; Start 10/03/16 at 04:00 Ascorbic Acid (Vitamin C) 500 mg BID GTB Last administered on 10/04/16 22:03; Admin Dose 500 MG; Start 10/03/16 at 21:00 Multivitamins 5 ml 5 ml DAILY GTB Last administered on 10/04/16 09:11; Admin Dose 5 ML; Start 10/04/16 at 09:00 Metronidazole (Flagyl 500 Mg (Pmx)) 100 ml @ 100 mls/hr Q8 IVPB Last administered on 10/05/16 05:14; Admin Dose 100 MLS/HR; Start 10/03/16 at 14:30 Tramadol HCl 75 mg 75 mg Q6H PRN GTB PAIN Last administered on 10/05/16 03:43 ; Admin Dose 75 MG; Start 10/04/16 at 12:00 Albumin Human (Albumin Human 25%) 50 ml @ 100 mls/hr Q8H IV ; Start 10/05/16 at 08:30; Stop 10/06/16 at 00:59 WERNER CHURCH Oct 05, 2016 09:21
--- NOTE | 2016-10-05 09:32 | RADRPT ---
PROCEDURE: XR Chest. CLINICAL INDICATION: Shortness of breath. TECHNIQUE: Single frontal view. COMPARISON: 10/03/2016. FINDINGS: There is a left arm PICC line with the tip in the upper superior vena cava. Mild right basilar atel ectasis is noted. The lungs are otherwise clear. There are multiple old healed right rib fractures . There are old healed fractures of the right scapula. The heart size is normal. There is no pleural effusion. There is no pneumothorax. IMPRESSION: 1. Left arm PICC line. 2. Mild right basilar atelectasis. 3. Old healed right rib and scapula fractures. RPTAT: QQ .Quan Olvera MD, MD Date Time Electronically viewed and signed by .Quan Olvera MD, on 10/05/2016 09:31 .R/
[2016-10-05] MEDS: COLISTIMETHATE 75 MG in SOD CHLORIDE 0.9% 100 ML IVPB SCH (09:50)
--- NOTE | 2016-10-05 13:11 | PN ---
DATE: 10/05/2016 SUBJECTIVE: No events overnight. The patient is lying comfortably in bed, sounds congested. He is nonverbal, noncommunicative. No fevers. VITAL SIGNS: Temperature 98.9, pulse 105, respirations 30, blood pressure 97/61 , saturation 100% on 4 liters. LABORATORY DATA: WBC 22.1, H and H 9 and 27.1, platelets 316, neutrophils 92.4. BUN 40, creatinine 1.33. MICROBIOLOGY: No new cultures. Blood culture and urine cultures since 2016 negative. ANTIMICROBIALS: The patient is on: 1. IV Flagyl. 2. Zyvox. 3. Fluconazole. 4. Colistin. INDWELLINGS: The patient has a left upper extremity PICC line placed on 2016, suprapubic catheter and G-tube. PHYSICAL EXAMINATION: GENERAL: Fragile, elderly man, chronically ill-appearing, who is nonverbal, noncommunicative, in no distress. HEENT: Head atraumatic, normocephalic. Sclerae anicteric. Buccal mucosa dry. NECK: Supple, trachea midline. CHEST: Rise symmetrical. Breath sounds with bilateral rhonchi. HEART: S1, S2, tachycardic. ABDOMEN: Distended, bowel sounds hypoactive. EXTREMITIES: With bilateral dependent edema. SKIN: Positive for anasarca and Multiple unstageable decubiti. ASSESSMENT: 1. Severe sepsis status post shock. 2. Significant secretion retention with probable ongoing aspiration. 3. Multiple infected wounds, status post debridement at [facility], with culture grew multidrug resistant organisms. 4. Status post urinary tract infection. 5. Chronic encephalopathy. 6. Metastatic disease with large pelvic mass per CT. 7. Suprapubic catheter. 8. ALLERGY TO PENICILLIN. PLAN: The patient remains unchanged. We are going to discontinue colistin given worsening of his renal function and start him on meropenem. Continue other antibiotics. Aggressive pulmonary toilet, suctioning p.r.n. Dictated By: LUIS ARMANDO MIRANDA IMPLEMENTATION COORDINATOR for MICHAEL RIVAS/NTS Conf#: [id number] DID#: [id number] [facility]
[2016-10-05] MEDS: BACITRACIN 0.9 GM OINT TOP SCH ×2 (14:18→21:32)
[2016-10-05] MEDS: ARTIFICIAL TEARS 15 ML OPH BOTH EYES SCH (21:32)
[2016-10-05] MEDS: MEROPENEM 500 MG/100 ML (PMX) 100 ML IVPB SCH (21:33)
[2016-10-05] MEDS: SODIUM HYPOCHLORITE 0.125% 473 ML BTL IRR SCH (21:38)
--- NOTE | 2016-10-05 23:30 | CONS ---
Date/Time of Note Date/Time of Note DATE: 10/05/16 TIME: 23:28 Consultation Date/Type/Reason Admit Date/Time Sep 30, 2016 at 17:03 Date of Consultation: Oct 05, 2016 Type of Consultation: Gen Surgical Reason for Consultation Decubitus ulcers Leukocytosis Social History Smoking Status: Unknown if ever smoked Exam/Review of Systems Vital Signs Vitals Vital Signs Date Time Temp Pulse Resp B/P Pulse Ox O2 Delivery O2 Flow Rate FiO2 10/05/16 20:32 103 25 92 Nasal Cannula 4.0 10/05/16 16:57 36 10/05/16 06:00 97/61 10/05/16 00:00 98.9 Intake and Output 10/04/16 10/04/16 10/05/16 15:00 23:00 07:00 Intake Total 1260 ml 1280 ml 770 ml Output Total 400 ml 440 ml 630 ml Balance 860 ml 840 ml 140 ml Results Result Diagram: 10/05/16 0400 10/05/16 0400 Results 24 hrs Laboratory Tests Test 10/05/16 04:00 Anion Gap 18 H Basophils # 0.0 Basophils % 0.0 Blood Morphology Comment Blood Urea Nitrogen 40 H Calcium Level 9.7 Carbon Dioxide Level 19 L Chloride Level 113 H Creatinine 1.33 H Differential Comment AUTO w/SCAN Eosinophils # 0.1 Eosinophils % 0.6 Glucose Level 84 Hematocrit 27.1 L Hemoglobin 9.0 L Lymphocytes # 0.6 L Lymphocytes % 2.8 L Magnesium Level 1.9 Mean Corpuscular Hemoglobin 30.2 Mean Corpuscular Hemoglobin Concent 33.3 Mean Corpuscular Volume 90.6 Mean Platelet Volume 8.8 Monocytes # 0.9 Monocytes % 4.2 Neutrophils # 20.4 H Neutrophils % 92.4 H Nucleated Red Blood Cells # 0.0 Nucleated Red Blood Cells % 0.0 Phosphorus Level 3.4 Platelet Count 316 Potassium Level 3.6 Red Blood Count 3.00 L Red Cell Distribution Width 16.0 H Sodium Level 146 H White Blood Count 22.1 #H Medications Medications Current Medications Acetaminophen (Tylenol Liquid) 650 mg Q6 PRN GTB PAIN AND OR ELEVATED TEMP Last administered on 10/04/16 05:37; Admin Dose 650 MG; Start 09/30/16 at 18:00 Eye Lubricant (Artificial Tears Oph) 2 drop HS BOTH EYES Last administered on 21:32; Admin Dose 2 DROP; Start 09/30/16 at 21:00 Polyethylene Glycol (Miralax) 17 gm BID GTB Last administered on 10/03/16 20: 54; Admin Dose 17 GM; Start 09/30/16 at 21:00; Status Future Hold Zolpidem Tartrate (Ambien) 5 mg HS PRN PO INSOMNIA; Start 09/30/16 at 18:00 Senna (Senokot (Ped)) 5 ml HS GTB Last administered on 10/03/16 20:54; Admin Dose 5 ML; Start 09/30/16 at 21:00; Status Future Hold Bacitracin (Bacitracin Oint (Ud)) 1 applic BID TOP Last administered on 21:32; Admin Dose 1 APPLIC; Start 09/30/16 at 21:00 Doxazosin Mesylate (Cardura) 1 mg HS PO ; Start 09/30/16 at 21:00; Status Future Hold Enoxaparin Sodium (Lovenox) 40 mg DAILY SC Last administered on 10/05/16 09:17 ; Admin Dose 40 MG; Start 10/01/16 at 09:00 Ferrous Sulfate (Feosol Liquid Cup) 300 mg BID GTB Last administered on 21:32; Admin Dose 300 MG; Start 09/30/16 at 21:00 Fluconazole (Diflucan) 100 mg DAILY GTB Last administered on 10/05/16 09:15; Admin Dose 100 MG; Start 10/01/16 at 09:00 Hypromellose 1 drop 1 drop Q6H PRN BOTH EYES IRRITATION Last administered on 16:30; Admin Dose 1 DROP; Start 09/30/16 at 20:00 Linezolid (Zyvox 600mg/D5W (Pmx)) 300 ml @ 300 mls/hr Q12 IVPB Last administered on 10/05/16 21:33; Admin Dose 300 MLS/HR; Start 10/01/16 at 21:00 Acetaminophen (Tylenol Liquid) 650 mg Q4H PRN GTB FEVER/PAIN; Start 10/03/16 at 04:00 Ascorbic Acid (Vitamin C) 500 mg BID GTB Last administered on 10/05/16 21:32; Admin Dose 500 MG; Start 10/03/16 at 21:00 Multivitamins 5 ml 5 ml DAILY GTB Last administered on 10/05/16 09:15; Admin Dose 5 ML; Start 10/04/16 at 09:00 Metronidazole (Flagyl 500 Mg (Pmx)) 100 ml @ 100 mls/hr Q8 IVPB Last administered on 10/05/16 14:18; Admin Dose 100 MLS/HR; Start 10/03/16 at 14:30 Tramadol HCl 75 mg 75 mg Q6H PRN GTB PAIN Last administered on 10/05/16 21:38 ; Admin Dose 75 MG; Start 10/04/16 at 12:00 Albumin Human 50 ml @ 100 mls/hr Q8H IV Last administered on 10/05/16 16:21; Admin Dose 100 MLS/HR; Start 10/05/16 at 08:30; Stop 10/06/16 at 00:59 Meropenem (Merrem 500 Mg/ 100 ml (Pmx)) 100 ml @ 200 mls/hr Q12 IVPB Last administered on 10/05/16 21:33; Admin Dose 200 MLS/HR; Start 10/05/16 at 21:00 Sodium Hypochlorite (Dakin'S (1/4 Strength)) 1 applic DAILY IRR Last administered on 10/05/16 21:38; Admin Dose 1 APPLIC; Start 10/05/16 at 15:30 CHELSY CAIN MD Oct 05, 2016 23:30
[2016-10-06] VITALS (24 sets, daily range): BP systolic 82–120; BP diastolic 54–93; PULSE 86–105; RESP 13–36
[2016-10-06] MEDS: ALBUMIN HUMAN 25% 50 ML IV SCH (01:30)
[2016-10-06] MEDS: LEVALBUTEROL (NEB) 0.63 MG/3 ML AMP HHN SCH ×4 (02:29→21:21)
[2016-10-06] MEDS: metroNIDAZOLE 500 MG/NS (PMX) 100 ML IVPB SCH ×3 (05:01→23:27)
[2016-10-06 05:43] LABS: EOSINOPHILS # 0.1 10^3/ul (0.0-0.5); EOSINOPHILS % 0.4 % (0.0-7.0); HEMATOCRIT 24.1 % (42.0-52.0); LYMPHOCYTES # 0.5 10^3/ul (0.8-2.9); LYMPHOCYTES % 2.1 % (15.0-51.0); MEAN CORPUSCULAR HEMOGLOBIN 30.4 pg (29.0-33.0); MEAN CORPUSCULAR HGB CONC 33.2 g/dl (32.0-37.0); MEAN CORPUSCULAR VOLUME 91.6 fl (82.0-101.0); MEAN PLATELET VOLUME 8.3 fl (7.4-10.4); MONOCYTE # 0.7 10^3/ul (0.3-0.9); NEUTROPHIL # 21.2 10^3/ul (1.6-7.5); NEUTROPHILS % 94.5 % (39.0-77.0); PLATELET COUNT 290 10^3/UL (140-440); RED BLOOD COUNT 2.63 10^6/ul (4.70-6.10); RED CELL DISTRIBUTION WIDTH 16.2 % (11.5-14.5); UNCORRECTED WBC 22.4 10^3/ul (4.8-10.8); WHITE BLOOD COUNT 22.4 10^3/ul (4.8-10.8)
[2016-10-06 06:02] LABS: POTASSIUM 3.6 mmol/L (3.5-5.1)
[2016-10-06 06:04] LABS: CREATININE 1.37 mg/dl (0.61-1.24)
[2016-10-06 06:05] LABS: CALCIUM 10.5 mg/dl (8.4-10.2); MAGNESIUM 1.8 mg/dl (1.7-2.5)
[2016-10-06 06:20] LABS: CONDITION 1; LH ANALYZER COMMENTS 1
--- NOTE | 2016-10-06 07:49 | PN ---
DATE: 10/06/2016 CARDIOLOGY FOLLOWUP PROGRESS NOTE SUBJECTIVE: Discussed with the staff. Rhythm strip was reviewed. The patient remains in sinus rhy thm. Heart rate has remained better, improved right now. Remains nonverbal. The patient's blood p ressure on the low side, but stable. MEDICATIONS: Reviewed. PHYSICAL EXAMINATION: VITAL SIGNS: Temperature 98.5, heart rate 92, blood pressure 94/54, respiration rate of 23, saturat ing 100%. HEENT: Normocephalic, atraumatic. Pupils are equal. CARDIOVASCULAR: Regular rate and rhythm. Systolic murmur. PULMONARY: Mild rhonchi, diffuse. GASTROINTESTINAL: Soft, nontender. EXTREMITIES: With ankle edema. NEUROLOGIC: No response to verbal stimuli. PSYCHIATRIC: Unable to assess. LABORATORY: WBC of 22.4, hemoglobin 8.0, platelets 290. Sodium 147, potassium 3.6, BUN of 44, crea tinine 1.37, glucose of 71, magnesium is 1.8. Chest x-ray shows mild right basilar atelectasis, old hip fracture. ASSESSMENT AND PLAN: 1. Respiratory failure. 2. Sepsis, status post shock. 3. History of hypertension, currently hypotensive, but stable. 4. Oropharynx cancer. 5. Anemia. 6. Renal failure, acute now. 7. History of neurogenic bladder. 8. Severe encephalopathy. RECOMMENDATIONS: We will continue with the current cardiac care. Continue to monitor on telemetry. prognosis is good. Antibiotic as per ID's recommendation. We will continue with ICU care f or now. Consider palliative care. Dictated By: KATIE BURR/CHELSI Conf#: [id number] DID#: [id number] CC: JAX SLATER DO;*EndCC*
--- NOTE | 2016-10-06 08:05 | PN ---
DATE: 10/06/2016 SUBJECTIVE: The patient is critically ill and remains hypertensive with systolic pressures in the 9 0s. No reports of hemoptysis, hematemesis, or hematochezia. No other events noted. OBJECTIVE: VITAL SIGNS: Blood pressure 94/54, respirations 23, pulse 92, temperature 98.5. I'S AND O'S: The patient had 3 L in, 1.2 L out. HEENT: Head is normocephalic. NECK: Supple. HEART: Regular rate. LUNGS: Show diminished breath sounds at the base. Positive rhonchi and crackles. ABDOMEN: Soft, nontender to palpation, no rebound or guarding. Positive PEG. EXTREMITIES: Negative for clubbing, cyanosis, no edema. DERMATOLOGIC: No rashes. MUSCULOSKELETAL: No joint effusion. Positive decubitus wound. NEUROLOGIC: No change in exam. MEDICATIONS: The patient's medications have been reviewed. LABORATORY DATA: Shows sodium 147, potassium 3.6, chloride 112, BUN 44, creatinine 1.37, calcium 10 .5. White count 22.4, hemoglobin 8.0, hematocrit 24.1, platelet count 290. ASSESSMENT AND PLAN: 1. Severe sepsis. Etiology secondary to decubitus wound, urinary tract infection. The patient's b lood pressure remains low, but stable. Continue IV antibiotics. We will start the patient on IV hy dration. Follow up with infectious disease for recommendations. 2. Hypotension. Etiology is likely from sepsis. Continue IV hydration to monitor. 3. Acute hypoxemic respiratory failure secondary to sepsis, chronic obstructive pulmonary disease. Continue current treatment plan, supplemental oxygen. Continue nebulizer. Follow up with pulmonar y. 4. History of tongue cancer with possible metastasis to the pelvis. The patient is status post rad iation. Continue to observe, not a chemotherapy candidate. 5. Dysphagia status post percutaneous endoscopic gastrostomy. Continue tube feeds. 6. Stage IV decubitus wound, continue wound care. 7. Parkinson's disease, neurodegenerative disorder. Continue to monitor. 8. History of diastolic heart failure. Continue medical management, monitor closely on IV fluids. 9. Anemia. Continue to monitor hemoglobin and hematocrit levels closely. Hemoglobin levels have b een declining. No obvious evidence of bleed. 10. History of prostate cancer status post TURP. The patient is status post suprapubic catheter. C ontinue to observe. 11. Right-sided hydronephrosis secondary to pelvic mass. Continue to monitor. 12. Chronic neurogenic bladder. 13. Acute encephalopathy and advanced dementia. No significant change. Continue to observe. 14. Hyponatremia. Will increase free water flushes. 15. Nonoliguric acute kidney injury, etiology is multifactorial, secondary to sepsis, hemodynamics. Plan is to check urinalysis with microanalysis. Continue IV fluids and monitor. 16. Gastrointestinal and deep venous thrombosis prophylaxis. Continue proton pump inhibitor and Lo venox. Please note I spent over 40 minutes of critical care time with this patient. Dictated By: JAX ANDRADE/NTS Conf#: [id number] DID#: [id number]
[2016-10-06] MEDS: SOD CHLORIDE 0.9% 1,000 ML IV SCH ×2 (08:07→17:26)
[2016-10-06] MEDS: MULTIVITAMINS 5 ML CUP GTB SCH (08:08)
[2016-10-06] MEDS: FLUCONAZOLE 100 MG TAB GTB SCH (08:08)
[2016-10-06] MEDS: ENOXAPARIN 40 MG/0.4 ML SYG SC SCH (08:09)
[2016-10-06] MEDS: ASCORBIC ACID 500 MG TAB GTB SCH ×2 (08:23→21:00)
[2016-10-06] MEDS: BACITRACIN 0.9 GM OINT TOP SCH ×2 (08:23→21:00)
[2016-10-06] MEDS: FERROUS SULFATE 60 MG/ML 5ML CUP GTB SCH ×2 (08:23→21:00)
[2016-10-06] MEDS: SODIUM HYPOCHLORITE 0.125% 473 ML BTL IRR SCH (08:23)
[2016-10-06] MEDS: MEROPENEM 500 MG/100 ML (PMX) 100 ML IVPB SCH ×2 (08:24→20:56)
[2016-10-06] MEDS: LINEZOLID 600 MG/D5W (PMX) 300 ML IVPB SCH ×2 (08:24→21:00)
--- NOTE | 2016-10-06 09:58 | CONS ---
Date/Time of Note Date/Time of Note DATE: 10/06/16 TIME: 09:52 Assessment/Plan Assessment/Plan Additional Assessment/Plan Assessment and recommendations; 1. Patient admitted with hypotension and sepsis with interval improvement. 2. Severe underlying mental unresponsiveness due to anoxic encephalopathy. 3. Remote history of tracheostomy with subsequent decannulation. 4. Severe physical deconditioning and muscle wasting. 5. Sacral decubitus wound. Continue current treatment. Prognosis is extremely poor. Consultation Date/Type/Reason Admit Date/Time Sep 30, 2016 at 17:03 Type of Consultation: Pulmonary/critical care 24 HR Interval Summary Free Text/Dictation Patient's condition remains tenuous at best. Remains unresponsive due to underlying anoxic encephalopathy. However has remained hemodynamically stable. General examination; elderly male, unresponsive. Exam/Review of Systems Vital Signs Vitals Vital Signs Date Time Temp Pulse Resp B/P Pulse Ox O2 Delivery O2 Flow Rate FiO2 10/06/16 09:00 88 24 104/64 95 10/06/16 08:14 Nasal Cannula 3.0 10/06/16 07:00 98.7 10/05/16 16:57 36 Intake and Output 10/05/16 10/05/16 10/06/16 15:00 23:00 07:00 Intake Total 760 ml 1490 ml 840 ml Output Total 425 ml 325 ml 510 ml Balance 335 ml 1165 ml 330 ml Exam H EENT examination; supple neck, no JVD. No lymphadenopathy. Patient has multiple carious teeth. Pupils are small bilaterally. With bilateral conjunctival erythema. There is a well-healed tracheostomy scar. Chest examination; diminished breath sounds bilaterally. S1-S2 audible, no murmurs. Regular rhythm. Abdomen examination; soft, G-tube in place. Bowel sounds audible. Nondistended abdomen. Extremity examination; no peripheral edema. TRANSFORMER ASSEMBLER examination; patient remains unresponsive. Results Result Diagram: 10/06/16 0500 10/06/16 0500 Results 24 hrs Laboratory Tests Test 10/06/16 05:00 Anion Gap 18 H Basophils # 0.0 Basophils % 0.0 Blood Morphology Comment Blood Urea Nitrogen 44 H Calcium Level 10.5 H Carbon Dioxide Level 21 Chloride Level 112 H Creatinine 1.37 H Eosinophils # 0.1 Eosinophils % 0.4 Glucose Level 71 Hematocrit 24.1 L Hemoglobin 8.0 L Lymphocytes # 0.5 L Lymphocytes % 2.1 L Magnesium Level 1.8 Mean Corpuscular Hemoglobin 30.4 Mean Corpuscular Hemoglobin Concent 33.2 Mean Corpuscular Volume 91.6 Mean Platelet Volume 8.3 Monocytes # 0.7 Monocytes % 3.0 Neutrophils # 21.2 H Neutrophils % 94.5 H Nucleated Red Blood Cells # 0.0 Nucleated Red Blood Cells % 0.0 Phosphorus Level 4.0 Platelet Count 290 Potassium Level 3.6 Red Blood Count 2.63 L Red Cell Distribution Width 16.2 H Sodium Level 147 H White Blood Count 22.4 H Medications Medications Current Medications Acetaminophen (Tylenol Liquid) 650 mg Q6 PRN GTB PAIN AND OR ELEVATED TEMP Last administered on 10/04/16 05:37; Admin Dose 650 MG; Start 09/30/16 at 18:00 Eye Lubricant (Artificial Tears Oph) 2 drop HS BOTH EYES Last administered on 21:32; Admin Dose 2 DROP; Start 09/30/16 at 21:00 Polyethylene Glycol (Miralax) 17 gm BID GTB Last administered on 10/03/16 20: 54; Admin Dose 17 GM; Start 09/30/16 at 21:00; Status Future Hold Zolpidem Tartrate (Ambien) 5 mg HS PRN PO INSOMNIA; Start 09/30/16 at 18:00 Senna (Senokot (Ped)) 5 ml HS GTB Last administered on 10/03/16 20:54; Admin Dose 5 ML; Start 09/30/16 at 21:00; Status Future Hold Bacitracin (Bacitracin Oint (Ud)) 1 applic BID TOP Last administered on 08:23; Admin Dose 1 APPLIC; Start 09/30/16 at 21:00 Doxazosin Mesylate (Cardura) 1 mg HS PO ; Start 09/30/16 at 21:00; Status Future Hold Enoxaparin Sodium (Lovenox) 40 mg DAILY SC Last administered on 10/06/16 08:09 ; Admin Dose 40 MG; Start 10/01/16 at 09:00 Ferrous Sulfate (Feosol Liquid Cup) 300 mg BID GTB Last administered on 08:23; Admin Dose 300 MG; Start 09/30/16 at 21:00 Fluconazole (Diflucan) 100 mg DAILY GTB Last administered on 10/06/16 08:08; Admin Dose 100 MG; Start 10/01/16 at 09:00 Hypromellose 1 drop 1 drop Q6H PRN BOTH EYES IRRITATION Last administered on 16:30; Admin Dose 1 DROP; Start 09/30/16 at 20:00 Linezolid (Zyvox 600mg/D5W (Pmx)) 300 ml @ 300 mls/hr Q12 IVPB Last administered on 10/06/16 08:24; Admin Dose 300 MLS/HR; Start 10/01/16 at 21:00 Acetaminophen (Tylenol Liquid) 650 mg Q4H PRN GTB FEVER/PAIN; Start 10/03/16 at 04:00 Ascorbic Acid (Vitamin C) 500 mg BID GTB Last administered on 10/06/16 08:23; Admin Dose 500 MG; Start 10/03/16 at 21:00 Multivitamins 5 ml 5 ml DAILY GTB Last administered on 10/06/16 08:08; Admin Dose 5 ML; Start 10/04/16 at 09:00 Metronidazole (Flagyl 500 Mg (Pmx)) 100 ml @ 100 mls/hr Q8 IVPB Last administered on 10/06/16 05:01; Admin Dose 100 MLS/HR; Start 10/03/16 at 14:30 Tramadol HCl 75 mg 75 mg Q6H PRN GTB PAIN Last administered on 10/05/16 21:38 ; Admin Dose 75 MG; Start 10/04/16 at 12:00 Meropenem (Merrem 500 Mg/ 100 ml (Pmx)) 100 ml @ 200 mls/hr Q12 IVPB Last administered on 10/06/16 08:24; Admin Dose 200 MLS/HR; Start 10/05/16 at 21:00 Sodium Hypochlorite 1 applic 1 applic DAILY IRR Last administered on 10/06/16 08:23; Admin Dose 1 APPLIC; Start 10/05/16 at 15:30 Sodium Chloride (NS) 1,000 ml @ 75 mls/hr [id number] IV Last administered on 10/06 08:07; Admin Dose 75 MLS/HR; Start 10/06/16 at 07:30 WERNER CHURCH Oct 06, 2016 09:58
--- NOTE | 2016-10-06 12:21 | PN ---
DATE: 10/06/2016 INFECTIOUS DISEASE PROGRESS NOTE SUBJECTIVE: No acute changes overnight. No fevers. The patient remains nonverbal, noncommunicativ e, lying comfortably in bed, gargling on own secretions. WBC today 22.4 with platelets of 290, neut rophils 94.5, BUN 44, creatinine 1.37. VITAL SIGNS: Temperature 98.7, pulse 99, respirations 27, blood pressure 112/57, saturation 97% on nasal cannula. ANTIMICROBIALS: 1. Meropenem. 2. Flagyl. 3. Zyvox. 4. Fluconazole. INDWELLINGS: The patient had a PICC line placed on 10/02/2016, a suprapubic catheter. PHYSICAL EXAMINATION: GENERAL: Chronically ill-appearing, elderly man, who is in no distress. HEENT: Head atraumatic, normocephalic. Sclerae anicteric. Buccal mucosa dry. NECK: Supple, trachea midline. CHEST: Chest rise is symmetrical. Breath sounds with bilateral rales. HEART: S1, S2. ABDOMEN: Soft. Bowel tones present. EXTREMITIES: With trace edema. ASSESSMENT: 1. Severe sepsis status post shock. 2. Dysphagia with significant secretion retention and possible ongoing aspiration. 3. Multiple infected wounds, possible infection down to the bone, status post debridement at [facility]. Surgery on the case. 4. Severe encephalopathy, chronic. 5. Status post urinary tract infection. 6. Large pelvic mass, with a history of metastatic disease. 7. Suprapubic catheter. 8. ALLERGY TO PENICILLIN. PLAN: The patient remains unchanged. He is being followed by multiple consultants. He is on antib iotics. Surgery on the case. Continue the present care. Prognosis is guarded. Dictated By: LUIS ARMANDO MIRANDA LATEX FASHIONS DESIGNER for MICHAEL MONAHAN MD NI/NTS Conf#: [id number] DID#: [id number]
[2016-10-06 12:23] LABS: ADD UMIC YES; URINE BILIRUBIN (Dip) NEGATIVE (NEGATIVE); URINE BLOOD (Dip) 1+ (NEGATIVE); URINE COLOR LT. YELLOW (YELLOW); URINE GLUCOSE (Dip) NEGATIVE (NEGATIVE); URINE KETONES (Dip) NEGATIVE (NEGATIVE); URINE LEUKOCYTE ESTERASE (Dip) TRACE (NEGATIVE); URINE NITRITE (Dip) NEGATIVE (NEGATIVE); URINE TOTAL PROTEIN (Dip) TRACE (NEGATIVE); URINE UROBILINOGEN (Dip) 0.2 E.U./dL (0.1-1.0)
[2016-10-06 12:43] LABS: PROTEIN URINE 75.8 mg/dl (0.0-9.9)
[2016-10-06 12:52] LABS: BACTERIA,URINE MODERATE; URINE RBCS 0-2 /HPF (0)
[2016-10-06] MEDS ORDERED: ALTEPLASE (CATHFLO) 2 MG INJ CATHETER PRN (17:30)
[2016-10-06 17:35] LABS: HEMATOCRIT 25.7 % (42.0-52.0); HEMOGLOBIN 8.4 g/dl (14.0-18.0)
[2016-10-06 18:12] LABS: INR 1.3; PROTIME 16.3 Sec (12.2-14.2); PT RATIO 1.3
[2016-10-06 19:29] LABS: AADO2 Arterial 108.2 mmHg (7.0-24.0); Allen Test ACCEPTAB; Arterial Base Excess -4.7 mmol/L (-3.0-3); Arterial COHb 0.3 % (0.0-3.0); Arterial Fraction of Oxyhgb 92.2 % (93.0-99.0); Arterial HCO3 19.4 mmol/L (22.0-26.0); Arterial MetHb 0.4 % (0.0-1.5); Arterial Total Hemglobin 10.1 g/dl (12.0-18.0); MODE NASAL CANNULA
[2016-10-06] MEDS: ARTIFICIAL TEARS 15 ML OPH BOTH EYES SCH (21:00)
[2016-10-06] MEDS: traMADol 50 MG TAB GTB PRN (21:31)
[2016-10-07] VITALS (22 sets, daily range): BP systolic 87–137; BP diastolic 48–100; PULSE 90–111; RESP 20–39
--- NOTE | 2016-10-07 00:16 | CONS ---
DATE OF ADMISSION: 09/30/2016 DATE OF CONSULTATION: TYPE OF CONSULTATION: Gastroenterology. REFERRING PHYSICIAN: Dr. Cedric Varma Dear Dr. Varma, Thank you for asking me to evaluate your patient. HISTORY OF PRESENT ILLNESS: The patient is a 75-year-old gentleman with a history of Parkinson dise ase with other neurological conditions; supranuclear palsy; dysphagia, status post PEG; cancer of th e prostate; cancer of the tongue; status post G-tube; depression; multiple falls; subdural hematoma; history of meningioma; hypertension, was brought to the ICU for a hypotensive episode. The patient also had a history of C. difficile colitis in the past. GI consult was called in for rectal bleedi ng, which was a new problem now, but discussing with the , the patient had that problem on and o ff before, even when he was at [facility]. The patient has got multiple decubitus ulcers, and the re was a perirectal abscess which was treated with packing and local treatment. He also underwent i schiectomy, coccygectomy. He had wound VAC placement and was transfused ____. I had extensive disc ussion with the , and all the information obtained, and all her questions were also answered. PAST MEDICAL HISTORY: As described. MEDICATIONS: All reviewed. ALLERGIES: 1. PENICILLIN. 2. CODEINE. 3. HYDROCODONE. 4. MORPHINE. SOCIAL HISTORY: Does not smoke, drink or drugs. FAMILY HISTORY: Kidney disease. REVIEW OF SYSTEMS: Negative. PHYSICAL EXAMINATION: GENERAL: The patient is lethargic. He has got gurgling sound in the throat. ABDOMEN: Benign. G-tube is in place. EXTREMITIES: Pedal edema. CENTRAL NERVOUS SYSTEM: He is nonverbal. is by the side of the patient. LABORATORY DATA: His BUN is 33, creatinine is 1.2. Liver function test has been normal. BUN today was 44, creatinine 1.37. INR was 1.3. Hematocrit is 25.7, which is stable. IMPRESSION: 1. Rectal bleeding, mostly from radiation proctitis for prostate cancer, rule out also mass in the pelvis eroding into the rectum. This mass was told to the patient at [facility] as a tongue cance r migrated down into the pelvis as a distant metastasis. 2. Dysphagia, status post gastrostomy tube. 3. Parkinson disease and neurodegenerative disorder. 4. Anemia, chronic. He had multiple transfusions in the past. 5. History of prostate cancer for which he had transurethral resection of prostate, radiation and c hemotherapy a few years ago. 6. Tongue cancer for which he had treatment 13 to 14 years ago. 7. Chronic neurogenic bladder. 8. Right-sided hydronephrosis. 9. Hyponatremia. 10. Renal insufficiency. 11. Severe sepsis, most probably from decubitus ulcer infection. PLAN: To continue IV antibiotics as per ID. Stool for C. difficile toxin has been sent. If it is positive, will treat with vancomycin. Continue IV hydration. Continue G-tube feeding. Extensive d iscussion with the . If the bleeding continues, then will proceed with colonoscopy. At this po int, patient is unstable and will transfuse it on a need basis. Will stop Lovenox and aspirin for t he time being until the bleeding stops. I have discussed with the staff nurse, Adelaide, also. Pedro Pablo herrera monitor H and H. Dictated By: CHELE BRAUN/CHELSI Conf#: [id number] DID#: [id number]
[2016-10-07] MEDS: LEVALBUTEROL (NEB) 0.63 MG/3 ML AMP HHN SCH ×4 (01:58→20:23)
[2016-10-07] MEDS: metroNIDAZOLE 500 MG/NS (PMX) 100 ML IVPB SCH (06:09)
[2016-10-07 06:27] LABS: ADD SCAN DIFF NO
[2016-10-07 06:52] LABS: ABNORMAL IP MESSAGE 1; BASOPHILS % 0.2 % (0.0-2.0); EOSINOPHILS # 0.1 10^3/ul (0.0-0.5); EOSINOPHILS % 0.8 % (0.0-7.0); HEMATOCRIT 25.9 % (42.0-52.0); LYMPHOCYTES # 0.4 10^3/ul (0.8-2.9); LYMPHOCYTES % 2.6 % (15.0-51.0); MEAN CORPUSCULAR HEMOGLOBIN 29.6 pg (29.0-33.0); MEAN CORPUSCULAR HGB CONC 30.9 g/dl (32.0-37.0); MEAN CORPUSCULAR VOLUME 95.9 fl (82.0-101.0); MEAN PLATELET VOLUME 10.7 fl (7.4-10.4); MONOCYTE # 0.6 10^3/ul (0.3-0.9); MONOCYTES % 3.8 % (0.0-11.0); NEUTROPHIL # 15.1 10^3/ul (1.6-7.5); NEUTROPHILS % 91.4 % (39.0-77.0); PLATELET COUNT 339 10^3/UL (140-415); RED CELL DISTRIBUTION WIDTH 16.4 % (11.5-14.5); WHITE BLOOD COUNT 16.5 10^3/ul (4.8-10.8)
[2016-10-07 06:58] LABS: POTASSIUM 3.7 mmol/L (3.5-5.1)
[2016-10-07 07:00] LABS: CREATININE 1.22 mg/dl (0.61-1.24)
[2016-10-07 07:02] LABS: CALCIUM 10.4 mg/dl (8.4-10.2); MAGNESIUM 1.8 mg/dl (1.7-2.5); PHOSPHORUS 3.9 mg/dl (2.5-4.9)
[2016-10-07] MEDS ORDERED: HYDROCORTISONE 0.5% 28.35 GM OINT TOP PRN (08:00)
[2016-10-07] MEDS: BACITRACIN 0.9 GM OINT TOP SCH ×2 (08:24→21:33)
[2016-10-07] MEDS: SODIUM HYPOCHLORITE 0.125% 473 ML BTL IRR SCH (08:24)
[2016-10-07] MEDS: MULTIVITAMINS 5 ML CUP GTB SCH (08:24)
[2016-10-07] MEDS: FERROUS SULFATE 60 MG/ML 5ML CUP GTB SCH ×2 (08:24→21:33)
[2016-10-07] MEDS: FLUCONAZOLE 100 MG TAB GTB SCH (08:24)
[2016-10-07] MEDS: MEROPENEM 500 MG/100 ML (PMX) 100 ML IVPB SCH ×2 (08:25→21:33)
--- NOTE | 2016-10-07 09:14 | PN ---
DATE: SUBJECTIVE: The patient had noted GI bleed last night. The patient was typed and crossed, was not transfused. He was seen by bilingual operator, Dr. Dawn, patient was unstable to undergo endoscopy . No other acute events noted. No fevers, no chills. No hemoptysis. OBJECTIVE: VITAL SIGNS: Blood pressure 108/66, respirations 29, pulse 100, temperature 98.8. I's and O's reviewed. HEENT: Head is normocephalic. NECK: Supple. HEART: Regular rate. LUNGS: Show diminished breath sounds at the base. ABDOMEN: Soft, mildly distended, nontender to palpation. EXTREMITIES: Negative for clubbing, cyanosis, no edema. DERMATOLOGIC: No rashes. MUSCULOSKELETAL: No joint effusions. NEUROLOGIC: No change in exam. MEDICATIONS: The patient's medications have been reviewed. LABORATORY DATA: Shows a sodium of 147, potassium 3.7, chloride 113, BUN 45, creatinine 1.22, calci um 10.4. White count 16.5, hemoglobin 8.0, hematocrit 25.9, platelet count is 339. ASSESSMENT AND PLAN: 1. Severe sepsis, etiology secondary to decubitus wound, UTI. The patient remains on broad spectru m antibiotics. Will continue. 2. Acute gastrointestinal bleed. Etiology is unclear, possibly infectious versus ischemic versus d iverticular. The patient antiplatelets and Lovenox have been discontinued. Will continue to monito r H and H levels and transfuse if hemoglobin levels are below 7. Will follow up with GI. Andino e their help with management. 3. Hypertension, etiology is due to sepsis, improving. Continue IV fluids. 4. Acute hypoxemic respiratory failure secondary to sepsis, chronic obstructive pulmonary disease. Continue current treatment plan. Continue supplemental oxygen. Continue nebulized therapy. 5. History of tongue cancer with possible metastasis to pelvis. The patient is status post radiati on therapy. Continue to observe, not a chemotherapy candidate. 6. Dysphagia. Status post PEG tube, tube feeding. 7. Abdominal distention. Will check a KUB to rule out obstruction. 8. Stage IV decubitus wound. Continue wound care. 9. Parkinson's disease/neurodegenerative disorder, continue to monitor. 10. Acute diastolic heart failure. Continue current medical management. 11. Anemia. Continue to monitor H and H levels in the setting of gastrointestinal bleed. 12. Prostate cancer status post TURP with a suprapubic catheter. 13. Right-sided hydronephrosis secondary to pelvic mass. Continue to monitor. 14. Chronic neurogenic bladder. 15. Hypernatremia. Continue free water flushes. 16. Acute encephalopathy and vascular dementia. No change. 17. Nonoliguric acute kidney injury, etiology secondary to acute tubular necrosis. Urinalysis show s evidence of coarse granular casts consistent with tubular injury. Underlying etiology is secondar y to sepsis hemodynamics. We will continue current treatment plan, supportive care, renally dose me dications. 18. Gastrointestinal and deep venous thrombosis prophylaxis. Continue sequential leg squeezers and proton pump inhibitor. Please note, I spent over 40 minutes of critical care time with this patient. Dictated By: JAX ANDRADE/CHELSI Conf#: [id number] DID#: [id number]
--- NOTE | 2016-10-07 09:54 | CONS ---
Date/Time of Note Date/Time of Note DATE: 10/07/16 TIME: 09:52 Assessment/Plan Assessment/Plan Additional Assessment/Plan Assessment and recommendations; next 1. Patient admitted with sepsis and hypotension with interval improvement. 2. Severe COPD. 3. Very poor mental status. 4. Sacral decubitus wound. Continue current supportive care prognosis is poor. Consultation Date/Type/Reason Admit Date/Time Sep 30, 2016 at 17:03 Type of Consultation: Pulmonary/critical care 24 HR Interval Summary Free Text/Dictation Patient condition remains tenuous at best. Remains essentially unresponsive which is his underlying mental status. General examination; elderly male, currently in no distress. Unresponsive. Exam/Review of Systems Vital Signs Vitals Vital Signs Date Time Temp Pulse Resp B/P Pulse Ox O2 Delivery O2 Flow Rate FiO2 10/07/16 08:48 99 28 100 3.0 10/07/16 06:00 108/66 Nasal Cannula 10/07/16 04:00 98.8 10/07/16 03:00 30 Intake and Output 10/06/16 10/06/16 10/07/16 15:00 23:00 07:00 Intake Total 760 ml 2735 ml 1135 ml Output Total 140 ml 1345 ml 585 ml Balance 620 ml 1390 ml 550 ml Exam HEENT examination; supple neck, no JVD. No lymphadenopathy. Midline trachea. No thyromegaly. Chest examination; poor breath sounds bilaterally. S1-S2 audible. No murmurs. Regular rhythm. Abdomen examination; soft, nondistended. G-tube in place. No organomegaly. Extremity examination; no peripheral edema. EDITING INTERN examination; patient remains unresponsive. Results Result Diagram: 10/07/1652510/07/16 0526 Results 24 hrs Laboratory Tests Test 10/06/16 11:36 10/06/16 17:18 10/06/16 17:50 10/06/16 19:00 Urine Amorphous Urates MODERATE Urine Bacteria MODERATE Urine Bilirubin NEGATIVE Urine Clarity SLIGHTLY CLOUDY Urine Coarse Granular Casts MODERATE Urine Color LT. YELLOW Urine Epithelial Cells FEW Urine Glucose NEGATIVE Urine Hemoglobin 1+ H Urine Ketones NEGATIVE Urine Leukocyte Esterase TRACE H Urine Microscopic RBC 0-2 Urine Microscopic WBC 5-10 Urine Nitrite NEGATIVE Urine Random Creatinine < 12.40 L Urine Random Sodium 86 Urine Specific [place] 1.020 Urine Total Protein 75.8 H Urine Urobilinogen 0.2 E.U./dL Urine pH 5.0 Hematocrit 25.7 L Hemoglobin 8.4 L INR International Normalized Ratio 1.30 Prothrombin Time 16.3 H Prothrombin Time Ratio 1.3 Arterial Blood HCO3 19.4 L Arterial Blood Base Excess -4.7 L Arterial Blood Oxygen Saturation 92.8 L Eric Test ACCEPTAB Arterial Blood Gas Puncture Site Right Radial Arterial Blood Carboxyhemoglobin 0.3 Arterial Blood Date Drawn 10/06/2016 7:17:44 PM Arterial Blood Methemoglobin 0.4 Arterial Blood pCO2 (Temp correct) 32.0 L Arterial Blood pH (Temp corrected) 7.400 Arterial Blood pO2 (Temp corrected) 68.1 L Blood Gas A-a O2 Differential 108.2 H Blood Gas Actual Respiration Rate 35 Blood Gas Modality NASAL CANNULA Blood Gas Notified Time 10/06/2016 7:29:22 PM Blood Gas Notified Whom CHRISTA ORDONEZ Blood Gas Specimen Source Blood arterial Blood Gas Temperature 37.0 FiO2 30.0 Oxyhemoglobin Percent 92.2 L Total Hemoglobin 10.1 L Test 10/07/16 05:26 Anion Gap 17 H Basophils # 0.0 Basophils % 0.2 Blood Urea Nitrogen 45 H Calcium Level 10.4 H Carbon Dioxide Level 21 Chloride Level 113 H Creatinine 1.22 Eosinophils # 0.1 Eosinophils % 0.8 Glucose Level 97 Hematocrit 25.9 L Hemoglobin 8.0 L Lymphocytes # 0.4 L Lymphocytes % 2.6 L Magnesium Level 1.8 Mean Corpuscular Hemoglobin 29.6 Mean Corpuscular Hemoglobin Concent 30.9 L Mean Corpuscular Volume 95.9 Mean Platelet Volume 10.7 #H Monocytes # 0.6 Monocytes % 3.8 Neutrophils # 15.1 H Neutrophils % 91.4 H Nucleated Red Blood Cells # 0.0 Nucleated Red Blood Cells % 0.0 Phosphorus Level 3.9 Platelet Count 339 Potassium Level 3.7 Red Blood Count 2.70 L Red Cell Distribution Width 16.4 H Sodium Level 147 H White Blood Count 16.5 #H Medications Medications Current Medications Acetaminophen (Tylenol Liquid) 650 mg Q6 PRN GTB PAIN AND OR ELEVATED TEMP Last administered on 10/04/16 05:37; Admin Dose 650 MG; Start 09/30/16 at 18:00 Eye Lubricant (Artificial Tears Oph) 2 drop HS BOTH EYES Last administered on 21:00; Admin Dose 2 DROP; Start 09/30/16 at 21:00 Polyethylene Glycol (Miralax) 17 gm BID GTB Last administered on 10/03/16 20: 54; Admin Dose 17 GM; Start 09/30/16 at 21:00; Status Future Hold Zolpidem Tartrate (Ambien) 5 mg HS PRN PO INSOMNIA; Start 09/30/16 at 18:00 Senna (Senokot (Ped)) 5 ml HS GTB Last administered on 10/03/16 20:54; Admin Dose 5 ML; Start 09/30/16 at 21:00; Status Future Hold Bacitracin (Bacitracin Oint (Ud)) 1 applic BID TOP Last administered on 08:24; Admin Dose 1 APPLIC; Start 09/30/16 at 21:00 Doxazosin Mesylate (Cardura) 1 mg HS PO ; Start 09/30/16 at 21:00; Status Future Hold Ferrous Sulfate (Feosol Liquid Cup) 300 mg BID GTB Last administered on 08:24; Admin Dose 300 MG; Start 09/30/16 at 21:00 Fluconazole (Diflucan) 100 mg DAILY GTB Last administered on 10/07/16 08:24; Admin Dose 100 MG; Start 10/01/16 at 09:00 Hypromellose 1 drop 1 drop Q6H PRN BOTH EYES IRRITATION Last administered on 16:30; Admin Dose 1 DROP; Start 09/30/16 at 20:00 Linezolid (Zyvox 600mg/D5W (Pmx)) 300 ml @ 300 mls/hr Q12 IVPB Last administered on 10/06/16 21:00; Admin Dose 300 MLS/HR; Start 10/01/16 at 21:00 Acetaminophen (Tylenol Liquid) 650 mg Q4H PRN GTB FEVER/PAIN; Start 10/03/16 at 04:00 Ascorbic Acid (Vitamin C) 500 mg BID GTB Last administered on 10/06/16 21:00; Admin Dose 500 MG; Start 10/03/16 at 21:00 Multivitamins 5 ml 5 ml DAILY GTB Last administered on 10/07/16 08:24; Admin Dose 5 ML; Start 10/04/16 at 09:00 Metronidazole (Flagyl 500 Mg (Pmx)) 100 ml @ 100 mls/hr Q8 IVPB Last administered on 10/07/16 06:09; Admin Dose 100 MLS/HR; Start 10/03/16 at 14:30 Tramadol HCl 75 mg 75 mg Q6H PRN GTB PAIN Last administered on 10/06/16 21:31 ; Admin Dose 75 MG; Start 10/04/16 at 12:00 Meropenem (Merrem 500 Mg/ 100 ml (Pmx)) 100 ml @ 200 mls/hr Q12 IVPB Last administered on 10/07/16 08:25; Admin Dose 200 MLS/HR; Start 10/05/16 at 21:00 Sodium Hypochlorite 1 applic 1 applic DAILY IRR Last administered on 10/07/16 08:24; Admin Dose 1 APPLIC; Start 10/05/16 at 15:30 Sodium Chloride (NS) 1,000 ml @ 75 mls/hr [id number] IV Last administered on 10/06 17:26; Admin Dose 75 MLS/HR; Start 10/06/16 at 07:30 Hydrocortisone (Hydrocortisone 0.5% Oint) 1 applic BID PRN TOP ITCHING; Start 10/07/16 at 08:00 Lidocaine (Xylocaine 1% (Mdv) 20 ml) 40 ml ONCE ONCE SC ; Start 10/07/16 at 10: 00; Stop 10/07/16 at 10:01 Silver Nitrate (Silver Nitrate Swabs) 10 stick ONCE ONCE TOP ; Start 10/07/16 at 10:30; Stop 10/07/16 at 10:31 WERNER CHURCH Oct 07, 2016 09:54
[2016-10-07] MEDS: ASCORBIC ACID 500 MG TAB GTB SCH ×2 (09:55→21:33)
[2016-10-07] MEDS: LINEZOLID 600 MG/D5W (PMX) 300 ML IVPB SCH ×2 (09:56→21:33)
[2016-10-07] MEDS ORDERED: LIDOCAINE 1% (MDV) 20 ML INJ SC ONE ×2 (10:00→21:00)
--- NOTE | 2016-10-07 10:24 | RADRPT ---
PROCEDURE: XR Abdomen. CLINICAL INDICATION: Abdomen pain. TECHNIQUE: AP supine abdomen x-ray. COMPARISON: None. FINDINGS: There is a gastrostomy tube overlying the stomach. The bowel gas pattern is normal with no evidence of obstruction. Surgical clips are present from pr evious cholecystectomy. There are no abnormal calcifications overlying the urinary tracts. There are degenerative changes of the spine. Left hip hemiarthroplasty is noted. IMPRESSION: 1. Gastrostomy tube. 2. No evidence of obstruction. 3. Previous cholecystectomy. 4. Degenerative changes of the spine. 5. Left hip hemiarthroplasty. RPTAT: QQ .Quan Olvera MD, MD Date Time Electronically viewed and signed by .Quan Olvera MD, MD on 10/07/2016 10:23 .R/
[2016-10-07] MEDS ORDERED: SILVER NITRATE SWAB TOP ONE ×2 (10:30→21:00)
--- NOTE | 2016-10-07 11:28 | PN ---
DATE: 10/07/2016 SUBJECTIVE: No events overnight. The patient is lying comfortably in bed, nonverbal, noncommunicat penelope. No fevers. VITAL SIGNS: Temperature 98.8, pulse 99, respirations 28, blood pressure 108/66, saturation 100 on 3 liters. LABORATORY DATA: WBC 16.5, H and H 8 and 25.9, platelets 339, neutrophils 91.4, BUN 45, creatinine 1.22. DIAGNOSTICS: X-ray of the abdomen revealed no evidence of obstruction. INDWELLINGS: The patient had PICC line placed on 10/02/2016, suprapubic catheter, rectal tube. ANTIMICROBIALS: 1. Meropenem. 2. Flagyl. 3. Zyvox. 4. Fluconazole. PHYSICAL EXAMINATION: GENERAL: Chronically ill-appearing, elderly man who is in no distress. HEENT: Head atraumatic, normocephalic. Sclerae anicteric. Buccal mucosa dry. NECK: Supple. CHEST: Rise symmetrical. Breath sounds diminished with bilateral scattered rhonchi. HEART: S1, S2. ABDOMEN: Soft, bowel tones present. EXTREMITIES: With trace edema. ASSESSMENT: 1. Ongoing status post shock. 2. Dysphagia with secretion retention and possible ongoing aspiration. 3. Multiple wounds, infected status post debridement, possibly osteomyelitis. 5. Status post diarrhea. 6. Status post urinary tract infection. 7. 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 8. Chronic encephalopathy. 9. ALLERGY TO PENICILLIN. PLAN: The patient remains unchanged. He is hemodynamically stable, but overall not doing well. He now has rectal bleeding. Gastroenterology on case. Diarrhea resolved. He was started on meropene m secondary to worsening kidney function, status post colistin. We are going to discontinue Flagyl, as meropenem has excellent anaerobic coverage and will cover Bacteroides that the patient grew in h is wound. Dictated By: LUIS ARMANDO MIRANDA OFFC SPEC for MICHAEL RIVAS/CHELSI Conf#: [id number] DID#: [id number]
[2016-10-07] MEDS: SOD CHLORIDE 0.9% 1,000 ML IV SCH ×2 (13:59→23:30)
--- NOTE | 2016-10-07 17:48 | PN ---
DATE: 10/07/2016 CARDIOLOGY FOLLOWUP SUBJECTIVE: Discussed with the staff. Rhythm strip was reviewed. The patient remains in sinus rhy thm. Heart is stable, intermittently tachycardic. Apparently, has had GI bleed as well. The patie nt remains nonverbal. MEDICATIONS: Reviewed as per medical reconciliation, personally reviewed. PHYSICAL EXAMINATION: VITAL SIGNS: Temperature 98.2, heart rate of 105, blood pressure of 103/54, respiratory rate of 31. HEENT: Normocephalic, atraumatic. GENERAL: Elderly gentleman. CARDIOVASCULAR: Tachycardic. PULMONARY: With no wheezes anteriorly, mild rhonchi. GASTROINTESTINAL: Soft, nontender. EXTREMITIES: With trivial edema. NEUROLOGIC: Nonresponsive to verbal stimuli. LABORATORY: WBC of 16.5, hemoglobin 8.0, platelets of 339. Sodium 147, potassium 3.7, BUN of 45, c reatinine 1.22, glucose of 97. Abdominal x-ray showed a gastrostomy tube with no evidence of obstru ction. ASSESSMENT AND PLAN: 1. Tachycardia, multifactorial. 2. Sepsis. 3. Anemia and gastrointestinal bleed. 4. History of hypertension, currently hypotensive. 5. Respiratory failure, stable. 6. Tongue cancer. 7. Multiple decubitus ulcers. 8. Parkinson disease. 9. Congestive heart failure secondary to diastolic dysfunction and fluid overload. 10. Electrolyte abnormality. 11. Hypernatremia. RECOMMENDATIONS: We will continue with the current cardiac care. Antibiotic as per ID's recommenda tion. Supportive care will be continued. Long-term prognosis appeared to be poor. The patient has severe encephalopathy. We will continue with the ICU care. Dictated By: KATIE BURR/CHELSI Conf#: [id number] DID#: [id number] CC: JAX SLATER DO; LUIS ARMANDO MIRANDA INSTRUMENTATION INSTRUCTOR;*EndCC*
--- NOTE | 2016-10-07 18:39 | CONS ---
Date/Time of Note Date/Time of Note DATE: 10/07/16 TIME: 18:36 Assessment/Plan Assessment/Plan Additional Assessment/Plan IMPRESSION: 1. Rectal bleeding, mostly from radiation proctitis for prostate cancer, rule out also mass in the pelvis eroding into the rectum. This mass was told to the patient at [facility] as a tongue cancer migrated down into the pelvis as a distant metastasis.bleeding stopped 2. Dysphagia, status post gastrostomy tube. 3. Parkinson disease and neurodegenerative disorder. 4. Anemia, chronic. He had multiple transfusions in the past. 5. History of prostate cancer for which he had transurethral resection of prostate, radiation and chemotherapy a few years ago. 6. Tongue cancer for which he had treatment 13 to 14 years ago. 7. Chronic neurogenic bladder. 8. Right-sided hydronephrosis. 9. Hyponatremia. 10. Renal insufficiency. 11. Severe sepsis, most probably from decubitus ulcer infection. Plan monitor H&H continue antibiotics ppi no blood thinner Consultation Date/Type/Reason Admit Date/Time Sep 30, 2016 at 17:03 Initial Consult Date 10/05/16 Type of Consultation: Pulmonary/critical care 24 HR Interval Summary Subjective hx not possible: pt non-verbal, pt critical Exam/Review of Systems Vital Signs Vitals Vital Signs Date Time Temp Pulse Resp B/P Pulse Ox O2 Delivery O2 Flow Rate FiO2 10/07/16 16:32 98.2 10/07/16 16:00 105 10/07/16 16:00 33 132/94 100 10/07/16 16:00 Nasal Cannula 3.0 10/07/16 03:00 30 Intake and Output 10/06/16 10/06/16 10/07/16 15:00 23:00 07:00 Intake Total 760 ml 2735 ml 1135 ml Output Total 140 ml 1345 ml 585 ml Balance 620 ml 1390 ml 550 ml Exam Constitutional: alert, oriented, well developed Psych: nl mood/affect, no complaints Head: atraumatic, normocephalic Eyes: EOMI, PERRL, nl conjunctiva, nl lids, nl sclera ENMT: nl external ears & nose, nl lips & teeth, nl nasal mucosa & septum Neck: non-tender, supple Respiratory: clear to auscultation, normal air movement Cardiovascular: nl pulses, regular rate and rhythm Gastrointestinal: nl liver, spleen, non-tender, soft Musculoskeletal: nl extremities to inspection, nl gait and stance Extremities: normal pulses Neurological: MORTGAGE SERVICING SPECIALIST II-XII intact, nl mental status, nl speech, nl strength Skin: nl turgor, No rash or lesions Lymph: nl lymph nodes Results Result Diagram: 10/07/1652510/07/16 05 Results 24 hrs Laboratory Tests Test 10/06/16 19:00 10/07/16 05:26 Arterial Blood HCO3 19.4 L Arterial Blood Base Excess -4.7 L Arterial Blood Oxygen Saturation 92.8 L Eric Test ACCEPTAB Arterial Blood Gas Puncture Site Right Radial Arterial Blood Carboxyhemoglobin 0.3 Arterial Blood Date Drawn 10/06/2016 7:17:44 PM Arterial Blood Methemoglobin 0.4 Arterial Blood pCO2 (Temp correct) 32.0 L Arterial Blood pH (Temp corrected) 7.400 Arterial Blood pO2 (Temp corrected) 68.1 L Blood Gas A-a O2 Differential 108.2 H Blood Gas Actual Respiration Rate 35 Blood Gas Modality NASAL CANNULA Blood Gas Notified Time 10/06/2016 7:29:22 PM Blood Gas Notified Whom CHRISTA ORDONEZ Blood Gas Specimen Source Blood arterial Blood Gas Temperature 37.0 FiO2 30.0 Oxyhemoglobin Percent 92.2 L Total Hemoglobin 10.1 L Anion Gap 17 H Basophils # 0.0 Basophils % 0.2 Blood Urea Nitrogen 45 H Calcium Level 10.4 H Carbon Dioxide Level 21 Chloride Level 113 H Creatinine 1.22 Eosinophils # 0.1 Eosinophils % 0.8 Glucose Level 97 Hematocrit 25.9 L Hemoglobin 8.0 L Lymphocytes # 0.4 L Lymphocytes % 2.6 L Magnesium Level 1.8 Mean Corpuscular Hemoglobin 29.6 Mean Corpuscular Hemoglobin Concent 30.9 L Mean Corpuscular Volume 95.9 Mean Platelet Volume 10.7 #H Monocytes # 0.6 Monocytes % 3.8 Neutrophils # 15.1 H Neutrophils % 91.4 H Nucleated Red Blood Cells # 0.0 Nucleated Red Blood Cells % 0.0 Phosphorus Level 3.9 Platelet Count 339 Potassium Level 3.7 Red Blood Count 2.70 L Red Cell Distribution Width 16.4 H Sodium Level 147 H White Blood Count 16.5 #H Medications Medications Current Medications Acetaminophen (Tylenol Liquid) 650 mg Q6 PRN GTB PAIN AND OR ELEVATED TEMP Last administered on 10/04/16 05:37; Admin Dose 650 MG; Start 09/30/16 at 18:00 Eye Lubricant (Artificial Tears Oph) 2 drop HS BOTH EYES Last administered on 21:00; Admin Dose 2 DROP; Start 09/30/16 at 21:00 Polyethylene Glycol (Miralax) 17 gm BID GTB Last administered on 10/03/16 20: 54; Admin Dose 17 GM; Start 09/30/16 at 21:00; Status Future Hold Zolpidem Tartrate (Ambien) 5 mg HS PRN PO INSOMNIA; Start 09/30/16 at 18:00 Senna (Senokot (Ped)) 5 ml HS GTB Last administered on 10/03/16 20:54; Admin Dose 5 ML; Start 09/30/16 at 21:00; Status Future Hold Bacitracin (Bacitracin Oint (Ud)) 1 applic BID TOP Last administered on 08:24; Admin Dose 1 APPLIC; Start 09/30/16 at 21:00 Doxazosin Mesylate (Cardura) 1 mg HS PO ; Start 09/30/16 at 21:00; Status Future Hold Ferrous Sulfate (Feosol Liquid Cup) 300 mg BID GTB Last administered on 08:24; Admin Dose 300 MG; Start 09/30/16 at 21:00 Fluconazole (Diflucan) 100 mg DAILY GTB Last administered on 10/07/16 08:24; Admin Dose 100 MG; Start 10/01/16 at 09:00 Hypromellose 1 drop 1 drop Q6H PRN BOTH EYES IRRITATION Last administered on 16:30; Admin Dose 1 DROP; Start 09/30/16 at 20:00 Linezolid (Zyvox 600mg/D5W (Pmx)) 300 ml @ 300 mls/hr Q12 IVPB Last administered on 10/07/16 09:56; Admin Dose 300 MLS/HR; Start 10/01/16 at 21:00 Acetaminophen (Tylenol Liquid) 650 mg Q4H PRN GTB FEVER/PAIN; Start 10/03/16 at 04:00 Ascorbic Acid (Vitamin C) 500 mg BID GTB Last administered on 10/07/16 09:55; Admin Dose 500 MG; Start 10/03/16 at 21:00 Multivitamins (Thera-Plus) 5 ml DAILY GTB Last administered on 10/07/16 08:24 ; Admin Dose 5 ML; Start 10/04/16 at 09:00 Tramadol HCl 75 mg 75 mg Q6H PRN GTB PAIN Last administered on 10/06/16 21:31 ; Admin Dose 75 MG; Start 10/04/16 at 12:00 Meropenem (Merrem 500 Mg/ 100 ml (Pmx)) 100 ml @ 200 mls/hr Q12 IVPB Last administered on 10/07/16 08:25; Admin Dose 200 MLS/HR; Start 10/05/16 at 21:00 Sodium Hypochlorite 1 applic 1 applic DAILY IRR Last administered on 10/07/16 08:24; Admin Dose 1 APPLIC; Start 10/05/16 at 15:30 Sodium Chloride (NS) 1,000 ml @ 75 mls/hr [id number] IV Last administered on 10/07 13:59; Admin Dose 75 MLS/HR; Start 10/06/16 at 07:30 Hydrocortisone (Hydrocortisone 0.5% Oint) 1 applic BID PRN TOP ITCHING; Start 10/07/16 at 08:00 CHELE CASE MD Oct 07, 2016 18:39
[2016-10-07] MEDS: ARTIFICIAL TEARS 15 ML OPH BOTH EYES SCH (21:34)
[2016-10-08] VITALS (24 sets, daily range): BP systolic 94–130; BP diastolic 54–90; PULSE 91–110; RESP 16–39
[2016-10-08] MEDS: traMADol 50 MG TAB GTB PRN ×4 (01:13→19:00)
[2016-10-08] MEDS: LEVALBUTEROL (NEB) 0.63 MG/3 ML AMP HHN SCH ×4 (01:39→20:21)
[2016-10-08 07:17] LABS: ADD SCAN DIFF NO
[2016-10-08 07:20] LABS: ABNORMAL IP MESSAGE 1; BASOPHILS % 0.1 % (0.0-2.0); EOSINOPHILS # 0.1 10^3/ul (0.0-0.5); EOSINOPHILS % 0.6 % (0.0-7.0); HEMATOCRIT 26.8 % (42.0-52.0); HEMOGLOBIN 8.4 g/dl (14.0-18.0); LYMPHOCYTES # 0.4 10^3/ul (0.8-2.9); LYMPHOCYTES % 2.5 % (15.0-51.0); MEAN CORPUSCULAR HEMOGLOBIN 30.2 pg (29.0-33.0); MEAN CORPUSCULAR HGB CONC 31.3 g/dl (32.0-37.0); MEAN CORPUSCULAR VOLUME 96.4 fl (82.0-101.0); MEAN PLATELET VOLUME 12.1 fl (7.4-10.4); MONOCYTE # 0.7 10^3/ul (0.3-0.9); MONOCYTES % 4.7 % (0.0-11.0); NEUTROPHIL # 13.7 10^3/ul (1.6-7.5); NEUTROPHILS % 91.6 % (39.0-77.0); PLATELET COUNT 340 10^3/UL (140-415); RED BLOOD COUNT 2.78 10^6/ul (4.70-6.10); RED CELL DISTRIBUTION WIDTH 16.4 % (11.5-14.5)
[2016-10-08 07:40] LABS: POTASSIUM 4.1 mmol/L (3.5-5.1)
[2016-10-08 07:43] LABS: CREATININE 1.24 mg/dl (0.61-1.24)
[2016-10-08 07:44] LABS: CALCIUM 10.5 mg/dl (8.4-10.2); MAGNESIUM 1.9 mg/dl (1.7-2.5); PHOSPHORUS 4.3 mg/dl (2.5-4.9)
--- NOTE | 2016-10-08 08:50 | PN ---
DATE: 10/08/2016 SUBJECTIVE: The patient remains critical. No significant change overnight. The patient was noted t o have some leaking around his suprapubic catheter site. No other events noted. OBJECTIVE: VITAL SIGNS: Blood pressure is 120/77, respirations 39, pulse 105, temperature 98.1. HEENT: Head is normocephalic. NECK: Supple. HEART: Regular rate. LUNGS: Showed diminished breath sounds at the base. ABDOMEN: Soft, nontender to palpation. No rebound or guarding. Positive PEG. The patient has a suprapubic catheter. EXTREMITIES: Negative for clubbing or cyanosis. Trace edema. DERMATOLOGIC: No rashes. MUSCULOSKELETAL: Have no joint effusion. NEUROLOGIC: No change in exam. MEDICATIONS: The patient's medications have been reviewed. LABORATORY DATA: Currently pending. KUB shows no acute obstruction. ASSESSMENT AND PLAN: 1. Severe sepsis. Etiology is secondary to a decubitus wound and UTI. The patient remains on broa d spectrum antibiotics. Will continue. 2. Acute lower gastrointestinal bleed. Underlying etiology is unclear, possibly infectious possibl y versus diverticular. The patient's bleeding has improved. Will continue to monitor H and H level s. Will transfuse if hemoglobin levels fall below 8 g/dL. GI is following. We will follow up with their recommendations. 3. Acute hypoxemic respiratory failure secondary to sepsis and chronic obstructive pulmonary diseas e. Continue the current treatment plan. Continue supplemental oxygen. 4. History of tongue cancer, with possible metastasis to pelvis. The patient is status post radiat ion therapy. Continue to observe. Not a chemotherapy candidate. 5. Dysphagia. Status post PEG tube feedings. 6. Abdominal distention. The patient is status post KUB. No evidence of obstruction. 7. Stage IV decubitus wound. Continue wound care. 8. Parkinson's disease/neurodegenerative disorder. Continue to monitor. 9. Acute diastolic heart failure. Continue the current medical management. Will discontinue IV fl uids. 10. Anemia. Continue to monitor hemoglobin and hematocrit levels. Transfuse if needed, as stated above. 11. Prostate cancer. Status post TURP, status post suprapubic catheter. The patient has noted a l eak. Will place a urology consult with Dr. Kimbrough. 12. Right-sided hydronephrosis secondary pelvic mass. Will continue to monitor. 13. Acute encephalopathy on top of vascular dementia. No change. Continue to monitor. 14. Hyponatremia. Continue free water flushes. 15. Nonoliguric acute kidney injury. Etiology is secondary to acute tubular necrosis. At this poin t will continue the current treatment plan, supportive care, renally dose all meds. 16. Gastrointestinal and deep venous thrombosis prophylaxis. Continue proton pump inhibitor and se quential leg squeezers. Please note, I spent over 40 minutes of critical care time with this patient. Dictated By: JAX ANDRADE/CHELSI Conf#: [id number] DID#: [id number]
[2016-10-08] MEDS: BACITRACIN 0.9 GM OINT TOP SCH ×2 (09:01→21:19)
[2016-10-08] MEDS: FERROUS SULFATE 60 MG/ML 5ML CUP GTB SCH ×2 (09:01→21:19)
[2016-10-08] MEDS: MULTIVITAMINS 5 ML CUP GTB SCH (09:01)
[2016-10-08] MEDS: FLUCONAZOLE 100 MG TAB GTB SCH (09:01)
[2016-10-08] MEDS: ASCORBIC ACID 500 MG TAB GTB SCH ×2 (09:01→21:19)
[2016-10-08] MEDS: SODIUM HYPOCHLORITE 0.125% 473 ML BTL IRR SCH (09:02)
[2016-10-08] MEDS: MEROPENEM 500 MG/100 ML (PMX) 100 ML IVPB SCH ×2 (09:05→21:18)
--- NOTE | 2016-10-08 09:16 | CONS ---
Date/Time of Note Date/Time of Note DATE: 10/08/16 TIME: 09:15 Assessment/Plan Assessment/Plan Chief Complaint/Hosp Course ID PROGRESS NOTE DUPLICATE == SEE ID PROGRESS NOTE OF SAME DATE Problems: Consultation Date/Type/Reason Admit Date/Time Sep 30, 2016 at 17:03 Initial Consult Date 10/05/16 Type of Consultation: ID Exam/Review of Systems Vital Signs Vitals Vital Signs Date Time Temp Pulse Resp B/P Pulse Ox O2 Delivery O2 Flow Rate FiO2 10/08/16 08:32 100 3.0 32 10/08/16 08:32 103 28 10/08/16 06:00 129/77 10/08/16 04:00 98.1 10/08/16 00:00 Nasal Cannula Intake and Output 10/07/16 10/07/16 10/08/16 15:00 23:00 07:00 Intake Total 960 ml 750 ml 630 ml Output Total 215 ml 370 ml Balance 960 ml 535 ml 260 ml Results Result Diagram: 10/08/16 0650 10/08/16 0650 Results 24 hrs Laboratory Tests Test 10/08/16 06:50 Anion Gap 14 Basophils # 0.0 Basophils % 0.1 Blood Urea Nitrogen 47 H Calcium Level 10.5 H Carbon Dioxide Level 23 Chloride Level 116 H Creatinine 1.24 Eosinophils # 0.1 Eosinophils % 0.6 Glucose Level 75 Hematocrit 26.8 L Hemoglobin 8.4 L Lymphocytes # 0.4 L Lymphocytes % 2.5 L Magnesium Level 1.9 Mean Corpuscular Hemoglobin 30.2 Mean Corpuscular Hemoglobin Concent 31.3 L Mean Corpuscular Volume 96.4 Mean Platelet Volume 12.1 H Monocytes # 0.7 Monocytes % 4.7 Neutrophils # 13.7 H Neutrophils % 91.6 H Nucleated Red Blood Cells # 0.0 Nucleated Red Blood Cells % 0.0 Phosphorus Level 4.3 Platelet Count 340 Potassium Level 4.1 Red Blood Count 2.78 L Red Cell Distribution Width 16.4 H Sodium Level 149 H White Blood Count 15.0 H Medications Medications Current Medications Acetaminophen (Tylenol Liquid) 650 mg Q6 PRN GTB PAIN AND OR ELEVATED TEMP Last administered on 10/04/16 05:37; Admin Dose 650 MG; Start 09/30/16 at 18:00 Eye Lubricant (Artificial Tears Oph) 2 drop HS BOTH EYES Last administered on 21:34; Admin Dose 2 DROP; Start 09/30/16 at 21:00 Polyethylene Glycol (Miralax) 17 gm BID GTB Last administered on 10/03/16 20: 54; Admin Dose 17 GM; Start 09/30/16 at 21:00; Status Future Hold Zolpidem Tartrate (Ambien) 5 mg HS PRN PO INSOMNIA; Start 09/30/16 at 18:00 Senna (Senokot (Ped)) 5 ml HS GTB Last administered on 10/03/16 20:54; Admin Dose 5 ML; Start 09/30/16 at 21:00; Status Future Hold Bacitracin (Bacitracin Oint (Ud)) 1 applic BID TOP Last administered on 09:01; Admin Dose 1 APPLIC; Start 09/30/16 at 21:00 Doxazosin Mesylate (Cardura) 1 mg HS PO ; Start 09/30/16 at 21:00; Status Future Hold Ferrous Sulfate (Feosol Liquid Cup) 300 mg BID GTB Last administered on 09:01; Admin Dose 300 MG; Start 09/30/16 at 21:00 Fluconazole (Diflucan) 100 mg DAILY GTB Last administered on 10/08/16 09:01; Admin Dose 100 MG; Start 10/01/16 at 09:00 Hypromellose 1 drop 1 drop Q6H PRN BOTH EYES IRRITATION Last administered on 16:30; Admin Dose 1 DROP; Start 09/30/16 at 20:00 Linezolid (Zyvox 600mg/D5W (Pmx)) 300 ml @ 300 mls/hr Q12 IVPB Last administered on 10/07/16 21:33; Admin Dose 300 MLS/HR; Start 10/01/16 at 21:00 Acetaminophen (Tylenol Liquid) 650 mg Q4H PRN GTB FEVER/PAIN; Start 10/03/16 at 04:00 Ascorbic Acid (Vitamin C) 500 mg BID GTB Last administered on 10/08/16 09:01; Admin Dose 500 MG; Start 10/03/16 at 21:00 Multivitamins (Thera-Plus) 5 ml DAILY GTB Last administered on 10/08/16 09:01 ; Admin Dose 5 ML; Start 10/04/16 at 09:00 Tramadol HCl 75 mg 75 mg Q6H PRN GTB PAIN Last administered on 10/08/16 05:37 ; Admin Dose 75 MG; Start 10/04/16 at 12:00 Meropenem (Merrem 500 Mg/ 100 ml (Pmx)) 100 ml @ 200 mls/hr Q12 IVPB Last administered on 10/08/16 09:05; Admin Dose 200 MLS/HR; Start 10/05/16 at 21:00 Sodium Hypochlorite (Dakin'S (1/4 Strength)) 1 applic DAILY IRR Last administered on 10/08/16 09:02; Admin Dose 1 APPLIC; Start 10/05/16 at 15:30 Hydrocortisone (Hydrocortisone 0.5% Oint) 1 applic BID PRN TOP ITCHING; Start 10/07/16 at 08:00 CEASAR VIEYRA NP Oct 08, 2016 09:16 17at 09:01; Admin Dose 300 MG; Start 09/30/16 at 21:00 Fluconazole (Diflucan) 100 mg DAILY GTB Last administered on 10/08/16 09:01; Admin Dose 100 MG; Start 10/01/16 at 09:00 Hypromellose 1 drop 1 drop Q6H PRN BOTH EYES IRRITATION Last administered on 16:30; Admin Dose 1 DROP; Start 09/30/16 at 20:00 Linezolid (Zyvox 600mg/D5W (Pmx)) 300 ml @ 300 mls/hr Q12 IVPB Last administered on 10/07/16 21:33; Admin Dose 300 MLS/HR; Start 10/01/16 at 21:00 Acetaminophen (Tylenol Liquid) 650 mg Q4H PRN GTB FEVER/PAIN; Start 10/03/16 at 04:00 Ascorbic Acid (Vitamin C) 500 mg BID GTB Last administered on 10/08/16 09:01; Admin Dose 500 MG; Start 10/03/16 at 21:00 Multivitamins (Thera-Plus) 5 ml DAILY GTB Last administered on 10/08/16 09:01 ; Admin Dose 5 ML; Start 10/04/16 at 09:00 Tramadol HCl 75 mg 75 mg Q6H PRN GTB PAIN Last administered on 10/08/16 05:37 ; Admin Dose 75 MG; Start 10/04/16 at 12:00 Meropenem (Merrem 500 Mg/ 100 ml (Pmx)) 100 ml @ 200 mls/hr Q12 IVPB Last administered on 10/08/16 09:05; Admin Dose 200 MLS/HR; Start 10/05/16 at 21:00 Sodium Hypochlorite (Dakin'S (1/4 Strength)) 1 applic DAILY IRR Last administered on 10/08/16 09:02; Admin Dose 1 APPLIC; Start 10/05/16 at 15:30 Hydrocortisone (Hydrocortisone 0.5% Oint) 1 applic BID PRN TOP ITCHING; Start 10/07/16 at 08:00 CEASAR VIEYRA NP Oct 08, 2016 09:16
--- NOTE | 2016-10-08 10:22 | CONS ---
Date/Time of Note Date/Time of Note DATE: 10/08/16 TIME: 10:19 Assessment/Plan Assessment/Plan Additional Assessment/Plan Assessment and recommendations; next 1. Patient admitted for hypotension and sepsis due to pneumonia with significant clinical improvement. 2. Extremely poor mental status. 3. History of pneumonia with significant clinical and radiological improvement. Next 4. Mild hypernatremia. 5. Possibly some element of prerenal azotemia. Continue current treatment. Add free water via G-tube 250 ML every 6 hours. Overall prognosis remains extremely poor. Consultation Date/Type/Reason Admit Date/Time Sep 30, 2016 at 17:03 Type of Consultation: Pulmonary/critical care 24 HR Interval Summary Free Text/Dictation Patient condition remains tenuous at best. Because of underlying anoxic brain damage patient remains completely unresponsive which is his underlying mental status. Patient however has remained hemodynamically stable except for mild tachypnea. General examination; elderly male, unresponsive. Currently in no distress. Exam/Review of Systems Vital Signs Vitals Vital Signs Date Time Temp Pulse Resp B/P Pulse Ox O2 Delivery O2 Flow Rate FiO2 10/08/16 08:32 100 3.0 32 10/08/16 08:32 103 28 10/08/16 08:00 Nasal Cannula 10/08/16 06:00 129/77 10/08/16 04:00 98.1 Intake and Output 10/07/16 10/07/16 10/08/16 15:00 23:00 07:00 Intake Total 960 ml 750 ml 630 ml Output Total 215 ml 370 ml Balance 960 ml 535 ml 260 ml Exam H EENT examination; supple neck, no JVD. No lymphadenopathy. Midline trachea. No thyromegaly. He does not multiple carious teeth. Pupils are small bilaterally. There is a well-healed tracheostomy scar. Chest examination; diminished breath sounds throughout without any added sounds. S1-S2 audible, no murmurs. Regular rhythm. Abdomen examination; soft, nondistended. No organomegaly. G-tube in place. Bowel sounds audible. Extremity examination; no peripheral edema. MACHINE EDGE BANDER examination; patient remains unresponsive. Results Result Diagram: 10/08/16 0650 10/08/16 0650 Results 24 hrs Laboratory Tests Test 10/08/16 06:50 Anion Gap 14 Basophils # 0.0 Basophils % 0.1 Blood Urea Nitrogen 47 H Calcium Level 10.5 H Carbon Dioxide Level 23 Chloride Level 116 H Creatinine 1.24 Eosinophils # 0.1 Eosinophils % 0.6 Glucose Level 75 Hematocrit 26.8 L Hemoglobin 8.4 L Lymphocytes # 0.4 L Lymphocytes % 2.5 L Magnesium Level 1.9 Mean Corpuscular Hemoglobin 30.2 Mean Corpuscular Hemoglobin Concent 31.3 L Mean Corpuscular Volume 96.4 Mean Platelet Volume 12.1 H Monocytes # 0.7 Monocytes % 4.7 Neutrophils # 13.7 H Neutrophils % 91.6 H Nucleated Red Blood Cells # 0.0 Nucleated Red Blood Cells % 0.0 Phosphorus Level 4.3 Platelet Count 340 Potassium Level 4.1 Red Blood Count 2.78 L Red Cell Distribution Width 16.4 H Sodium Level 149 H White Blood Count 15.0 H Medications Medications Current Medications Acetaminophen (Tylenol Liquid) 650 mg Q6 PRN GTB PAIN AND OR ELEVATED TEMP Last administered on 10/04/16 05:37; Admin Dose 650 MG; Start 09/30/16 at 18:00 Eye Lubricant (Artificial Tears Oph) 2 drop HS BOTH EYES Last administered on 21:34; Admin Dose 2 DROP; Start 09/30/16 at 21:00 Polyethylene Glycol (Miralax) 17 gm BID GTB Last administered on 10/03/16 20: 54; Admin Dose 17 GM; Start 09/30/16 at 21:00; Status Future Hold Zolpidem Tartrate (Ambien) 5 mg HS PRN PO INSOMNIA; Start 09/30/16 at 18:00 Senna (Senokot (Ped)) 5 ml HS GTB Last administered on 10/03/16 20:54; Admin Dose 5 ML; Start 09/30/16 at 21:00; Status Future Hold Bacitracin (Bacitracin Oint (Ud)) 1 applic BID TOP Last administered on 09:01; Admin Dose 1 APPLIC; Start 09/30/16 at 21:00 Doxazosin Mesylate (Cardura) 1 mg HS PO ; Start 09/30/16 at 21:00; Status Future Hold Ferrous Sulfate (Feosol Liquid Cup) 300 mg BID GTB Last administered on 09:01; Admin Dose 300 MG; Start 09/30/16 at 21:00 Fluconazole (Diflucan) 100 mg DAILY GTB Last administered on 10/08/16 09:01; Admin Dose 100 MG; Start 10/01/16 at 09:00 Hypromellose 1 drop 1 drop Q6H PRN BOTH EYES IRRITATION Last administered on 16:30; Admin Dose 1 DROP; Start 09/30/16 at 20:00 Linezolid (Zyvox 600mg/D5W (Pmx)) 300 ml @ 300 mls/hr Q12 IVPB Last administered on 10/07/16 21:33; Admin Dose 300 MLS/HR; Start 10/01/16 at 21:00 Acetaminophen (Tylenol Liquid) 650 mg Q4H PRN GTB FEVER/PAIN; Start 10/03/16 at 04:00 Ascorbic Acid (Vitamin C) 500 mg BID GTB Last administered on 10/08/16 09:01; Admin Dose 500 MG; Start 10/03/16 at 21:00 Multivitamins (Thera-Plus) 5 ml DAILY GTB Last administered on 10/08/16 09:01 ; Admin Dose 5 ML; Start 10/04/16 at 09:00 Tramadol HCl 75 mg 75 mg Q6H PRN GTB PAIN Last administered on 10/08/16 05:37 ; Admin Dose 75 MG; Start 10/04/16 at 12:00 Meropenem (Merrem 500 Mg/ 100 ml (Pmx)) 100 ml @ 200 mls/hr Q12 IVPB Last administered on 10/08/16 09:05; Admin Dose 200 MLS/HR; Start 10/05/16 at 21:00 Sodium Hypochlorite (Dakin'S (1/4 Strength)) 1 applic DAILY IRR Last administered on 10/08/16 09:02; Admin Dose 1 APPLIC; Start 10/05/16 at 15:30 Hydrocortisone (Hydrocortisone 0.5% Oint) 1 applic BID PRN TOP ITCHING; Start 10/07/16 at 08:00 WERNER CHURCH Oct 08, 2016 10:22
--- NOTE | 2016-10-08 10:25 | CONS ---
Date/Time of Note Date/Time of Note DATE: 10/08/16 TIME: 10:13 Assessment/Plan Assessment/Plan Chief Complaint/Hosp Course ID PROGRESS NOTE CURRENT ABX=> Meropenem, Zyvox, Fluconazole s/p Flagyl. s/p Colistin 24H INTERVAL SUMMARY * Afebrile, tachypneic w/open mouth breathing * (+)Red conjunctiva -- eyes open, non-tracking to verbal stimuli PHYSICAL EXAMINATION: GENERAL: Frail appearing, open mouth breathing w/mild tachypnea, no stridor HEENT: Red conjunctiva, open eyes NECK: Supple, trachea midline. CHEST: Rise symmetrical, diminished bilateral, no wheeze HEART: Pulse RRR - mild tachycardia ABDOMEN: Distended EXTREMITIES: Warm ID ASSESSMENT 75 yo M w/chronic encephalopathy admit from [facility] with: 1. s/p hypotension = shock, hypovolemia + tachycardia 2/2 GIB + Sepsis w/SIRS , low grade temps, leukocytosis => IMPROVED 2. Dysphagia with secretion retention and possible ongoing aspiration pneumonitis syndrome without full blown PNA 3. Multiple wounds, infected status post debridement, possibly osteomyelitis. 5. Status post diarrhea. 6. Status post urinary tract infection. 7. 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 8. Bilateral conjunctivitis/blepharitis => Rx Polysporin ointment today 9. CLEM -> Improved OFF COLISTIN IV (-)MRSA Nares INVASIVES: PICC, FC, PEG ABX ALLERGY: PCN CURRENT ABX: => Merrem, Zyvox, Diflucan s/p Flagyl. s/p Colistin ID RECOMMENDATIONS 1. Continue current ABX 2. RX Polysporin ophthalmologic ointment OU . Problems: Consultation Date/Type/Reason Admit Date/Time Sep 30, 2016 at 17:03 Initial Consult Date 10/05/16 Type of Consultation: ID Exam/Review of Systems Vital Signs Vitals Vital Signs Date Time Temp Pulse Resp B/P Pulse Ox O2 Delivery O2 Flow Rate FiO2 10/08/16 08:32 100 3.0 32 10/08/16 08:32 103 28 10/08/16 08:00 Nasal Cannula 10/08/16 06:00 129/77 10/08/16 04:00 98.1 Intake and Output 10/07/16 10/07/16 10/08/16 15:00 23:00 07:00 Intake Total 960 ml 750 ml 630 ml Output Total 215 ml 370 ml Balance 960 ml 535 ml 260 ml Results Result Diagram: 10/08/16 0650 10/08/16 0650 Results 24 hrs Laboratory Tests Test 10/08/16 06:50 Anion Gap 14 Basophils # 0.0 Basophils % 0.1 Blood Urea Nitrogen 47 H Calcium Level 10.5 H Carbon Dioxide Level 23 Chloride Level 116 H Creatinine 1.24 Eosinophils # 0.1 Eosinophils % 0.6 Glucose Level 75 Hematocrit 26.8 L Hemoglobin 8.4 L Lymphocytes # 0.4 L Lymphocytes % 2.5 L Magnesium Level 1.9 Mean Corpuscular Hemoglobin 30.2 Mean Corpuscular Hemoglobin Concent 31.3 L Mean Corpuscular Volume 96.4 Mean Platelet Volume 12.1 H Monocytes # 0.7 Monocytes % 4.7 Neutrophils # 13.7 H Neutrophils % 91.6 H Nucleated Red Blood Cells # 0.0 Nucleated Red Blood Cells % 0.0 Phosphorus Level 4.3 Platelet Count 340 Potassium Level 4.1 Red Blood Count 2.78 L Red Cell Distribution Width 16.4 H Sodium Level 149 H White Blood Count 15.0 H Medications Medications Current Medications Acetaminophen (Tylenol Liquid) 650 mg Q6 PRN GTB PAIN AND OR ELEVATED TEMP Last administered on 10/04/16 05:37; Admin Dose 650 MG; Start 09/30/16 at 18:00 Eye Lubricant (Artificial Tears Oph) 2 drop HS BOTH EYES Last administered on 21:34; Admin Dose 2 DROP; Start 09/30/16 at 21:00 Polyethylene Glycol (Miralax) 17 gm BID GTB Last administered on 10/03/16 20: 54; Admin Dose 17 GM; Start 09/30/16 at 21:00; Status Future Hold Zolpidem Tartrate (Ambien) 5 mg HS PRN PO INSOMNIA; Start 09/30/16 at 18:00 Senna (Senokot (Ped)) 5 ml HS GTB Last administered on 10/03/16 20:54; Admin Dose 5 ML; Start 09/30/16 at 21:00; Status Future Hold Bacitracin (Bacitracin Oint (Ud)) 1 applic BID TOP Last administered on 09:01; Admin Dose 1 APPLIC; Start 09/30/16 at 21:00 Doxazosin Mesylate (Cardura) 1 mg HS PO ; Start 09/30/16 at 21:00; Status Future Hold Ferrous Sulfate (Feosol Liquid Cup) 300 mg BID GTB Last administered on 09:01; Admin Dose 300 MG; Start 09/30/16 at 21:00 Fluconazole (Diflucan) 100 mg DAILY GTB Last administered on 10/08/16 09:01; Admin Dose 100 MG; Start 10/01/16 at 09:00 Hypromellose 1 drop 1 drop Q6H PRN BOTH EYES IRRITATION Last administered on 16:30; Admin Dose 1 DROP; Start 09/30/16 at 20:00 Linezolid (Zyvox 600mg/D5W (Pmx)) 300 ml @ 300 mls/hr Q12 IVPB Last administered on 10/07/16 21:33; Admin Dose 300 MLS/HR; Start 10/01/16 at 21:00 Acetaminophen (Tylenol Liquid) 650 mg Q4H PRN GTB FEVER/PAIN; Start 10/03/16 at 04:00 Ascorbic Acid (Vitamin C) 500 mg BID GTB Last administered on 10/08/16 09:01; Admin Dose 500 MG; Start 10/03/16 at 21:00 Multivitamins (Thera-Plus) 5 ml DAILY GTB Last administered on 10/08/16 09:01 ; Admin Dose 5 ML; Start 10/04/16 at 09:00 Tramadol HCl 75 mg 75 mg Q6H PRN GTB PAIN Last administered on 10/08/16 05:37 ; Admin Dose 75 MG; Start 10/04/16 at 12:00 Meropenem (Merrem 500 Mg/ 100 ml (Pmx)) 100 ml @ 200 mls/hr Q12 IVPB Last administered on 10/08/16 09:05; Admin Dose 200 MLS/HR; Start 10/05/16 at 21:00 Sodium Hypochlorite (Dakin'S (1/4 Strength)) 1 applic DAILY IRR Last administered on 10/08/16 09:02; Admin Dose 1 APPLIC; Start 10/05/16 at 15:30 Hydrocortisone (Hydrocortisone 0.5% Oint) 1 applic BID PRN TOP ITCHING; Start 10/07/16 at 08:00 CEASAR VIEYRA NP Oct 08, 2016 10:23
[2016-10-08 10:53] LABS: PLATELETS CLUMPS OCCASIONAL
[2016-10-08] MEDS: LINEZOLID 600 MG/D5W (PMX) 300 ML IVPB SCH ×2 (11:26→21:19)
[2016-10-08] MEDS ORDERED: BACITRACIN/POLYMYX 3.5 GM OPH OINT BOTH EYES SCH (11:30)
[2016-10-08] MEDS: BACITRACIN/POLYMYX 3.5 GM OPH OINT BOTH EYES SCH ×2 (15:43→21:19)
--- NOTE | 2016-10-08 16:18 | CONS ---
Date/Time of Note Date/Time of Note DATE: 10/08/16 TIME: 16:17 Assessment/Plan Assessment/Plan Additional Assessment/Plan 1. Rectal bleeding, mostly from radiation proctitis for prostate cancer, rule out also mass in the pelvis eroding into the rectum. This mass was told to the patient at [facility] as a tongue cancer migrated down into the pelvis as a distant metastasis.bleeding stopped 2. Dysphagia, status post gastrostomy tube. 3. Parkinson disease and neurodegenerative disorder. 4. Anemia, chronic. He had multiple transfusions in the past. 5. History of prostate cancer for which he had transurethral resection of prostate, radiation and chemotherapy a few years ago. 6. Tongue cancer for which he had treatment 13 to 14 years ago. 7. Chronic neurogenic bladder. 8. Right-sided hydronephrosis. 9. Hyponatremia. 10. Renal insufficiency. 11. Severe sepsis, most probably from decubitus ulcer infection. Plan monitor H&H,which is stable continue antibiotics ppi no blood thinner Consultation Date/Type/Reason Admit Date/Time Sep 30, 2016 at 17:03 Initial Consult Date 10/05/16 Type of Consultation: ID 24 HR Interval Summary Subjective hx not possible: pt non-verbal, pt critical Exam/Review of Systems Vital Signs Vitals Vital Signs Date Time Temp Pulse Resp B/P Pulse Ox O2 Delivery O2 Flow Rate FiO2 10/08/16 16:00 97 21 94/58 98 3.0 10/08/16 13:50 30 10/08/16 12:00 98.6 10/08/16 12:00 Nasal Cannula Intake and Output 10/07/16 10/07/16 10/08/16 15:00 23:00 07:00 Intake Total 960 ml 750 ml 700 ml Output Total 215 ml 520 ml Balance 960 ml 535 ml 180 ml Exam Constitutional: alert, oriented, well developed Psych: nl mood/affect, no complaints Head: atraumatic, normocephalic Eyes: EOMI, PERRL, nl conjunctiva, nl lids, nl sclera ENMT: nl external ears & nose, nl lips & teeth, nl nasal mucosa & septum Neck: non-tender, supple Respiratory: clear to auscultation, normal air movement Cardiovascular: nl pulses, regular rate and rhythm Gastrointestinal: nl liver, spleen, non-tender, soft Musculoskeletal: nl extremities to inspection, nl gait and stance Extremities: normal pulses 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, nl mental status, nl speech, nl strength Skin: nl turgor, No rash or lesions Lymph: nl lymph nodes Results Result Diagram: 10/08/16 0650 10/08/16 0650 Results 24 hrs Laboratory Tests Test 10/08/16 06:50 Anion Gap 14 Basophils # 0.0 Basophils % 0.1 Blood Urea Nitrogen 47 H Calcium Level 10.5 H Carbon Dioxide Level 23 Chloride Level 116 H Clumped Platelets OCCASIONAL Creatinine 1.24 Eosinophils # 0.1 Eosinophils % 0.6 Glucose Level 75 Hematocrit 26.8 L Hemoglobin 8.4 L Lymphocytes # 0.4 L Lymphocytes % 2.5 L Magnesium Level 1.9 Mean Corpuscular Hemoglobin 30.2 Mean Corpuscular Hemoglobin Concent 31.3 L Mean Corpuscular Volume 96.4 Mean Platelet Volume 12.1 H Monocytes # 0.7 Monocytes % 4.7 Neutrophils # 13.7 H Neutrophils % 91.6 H Nucleated Red Blood Cells # 0.0 Nucleated Red Blood Cells % 0.0 Phosphorus Level 4.3 Platelet Count 340 Potassium Level 4.1 Red Blood Count 2.78 L Red Cell Distribution Width 16.4 H Sodium Level 149 H White Blood Count 15.0 H Medications Medications Current Medications Acetaminophen (Tylenol Liquid) 650 mg Q6 PRN GTB PAIN AND OR ELEVATED TEMP Last administered on 10/04/16 05:37; Admin Dose 650 MG; Start 09/30/16 at 18:00 Eye Lubricant (Artificial Tears Oph) 2 drop HS BOTH EYES Last administered on 21:34; Admin Dose 2 DROP; Start 09/30/16 at 21:00 Polyethylene Glycol (Miralax) 17 gm BID GTB Last administered on 10/03/16 20: 54; Admin Dose 17 GM; Start 09/30/16 at 21:00; Status Future Hold Zolpidem Tartrate (Ambien) 5 mg HS PRN PO INSOMNIA; Start 09/30/16 at 18:00 Senna (Senokot (Ped)) 5 ml HS GTB Last administered on 10/03/16 20:54; Admin Dose 5 ML; Start 09/30/16 at 21:00; Status Future Hold Bacitracin (Bacitracin Oint (Ud)) 1 applic BID TOP Last administered on 09:01; Admin Dose 1 APPLIC; Start 09/30/16 at 21:00 Doxazosin Mesylate (Cardura) 1 mg HS PO ; Start 09/30/16 at 21:00; Status Future Hold Ferrous Sulfate (Feosol Liquid Cup) 300 mg BID GTB Last administered on 09:01; Admin Dose 300 MG; Start 09/30/16 at 21:00 Fluconazole (Diflucan) 100 mg DAILY GTB Last administered on 10/08/16 09:01; Admin Dose 100 MG; Start 10/01/16 at 09:00 Hypromellose 1 drop 1 drop Q6H PRN BOTH EYES IRRITATION Last administered on 16:30; Admin Dose 1 DROP; Start 09/30/16 at 20:00 Linezolid (Zyvox 600mg/D5W (Pmx)) 300 ml @ 300 mls/hr Q12 IVPB Last administered on 10/08/16 11:26; Admin Dose 300 MLS/HR; Start 10/01/16 at 21:00 Acetaminophen (Tylenol Liquid) 650 mg Q4H PRN GTB FEVER/PAIN; Start 10/03/16 at 04:00 Ascorbic Acid (Vitamin C) 500 mg BID GTB Last administered on 10/08/16 09:; Admin Dose 500 MG; Start 10/03/16 at 21:00 Multivitamins (Thera-Plus) 5 ml DAILY GTB Last administered on 10/08/16 09: ; Admin Dose 5 ML; Start 10/04/16 at 09:00 Tramadol HCl 75 mg 75 mg Q6H PRN GTB PAIN Last administered on 10/08/16 11:30 ; Admin Dose 75 MG; Start 10/04/16 at 12:00 Meropenem (Merrem 500 Mg/ 100 ml (Pmx)) 100 ml @ 200 mls/hr Q12 IVPB Last administered on 10/08/16 09:05; Admin Dose 200 MLS/HR; Start 10/05/16 at 21:00 Sodium Hypochlorite (Dakin'S (1/4 Strength)) 1 applic DAILY IRR Last administered on 10/08/16 09:02; Admin Dose 1 APPLIC; Start 10/05/16 at 15:30 Hydrocortisone (Hydrocortisone 0.5% Oint) 1 applic BID PRN TOP ITCHING; Start 10/07/16 at 08:00 Bacitracin/ Polymyxin B Sulfate (Ak-Poly-Jaun Oph Oint) 1 applic Q12 BOTH EYES Last administered on 10/08/16t 15:43; Admin Dose 1 APPLIC; Start 10/08/16 at 16: 30 CHELE CASE MD Oct 08, 2016 16:18
[2016-10-08] MEDS: ARTIFICIAL TEARS 15 ML OPH BOTH EYES SCH (21:28)
[2016-10-09] VITALS (26 sets, daily range): BP systolic 81–131; BP diastolic 52–74; PULSE 85–108; RESP 17–35
[2016-10-09] MEDS: traMADol 50 MG TAB GTB PRN ×2 (00:46→20:45)
[2016-10-09] MEDS: LEVALBUTEROL (NEB) 0.63 MG/3 ML AMP HHN SCH ×4 (01:19→19:57)
[2016-10-09 05:05] LABS: ADD SCAN DIFF NO
[2016-10-09 05:08] LABS: ABNORMAL IP MESSAGE 1; BASOPHILS % 0.1 % (0.0-2.0); EOSINOPHILS # 0.1 10^3/ul (0.0-0.5); EOSINOPHILS % 0.6 % (0.0-7.0); HEMATOCRIT 26.8 % (42.0-52.0); HEMOGLOBIN 8.1 g/dl (14.0-18.0); LYMPHOCYTES # 0.5 10^3/ul (0.8-2.9); LYMPHOCYTES % 2.7 % (15.0-51.0); MEAN CORPUSCULAR HEMOGLOBIN 29.6 pg (29.0-33.0); MEAN CORPUSCULAR HGB CONC 30.2 g/dl (32.0-37.0); MEAN CORPUSCULAR VOLUME 97.8 fl (82.0-101.0); MEAN PLATELET VOLUME 10.4 fl (7.4-10.4); MONOCYTE # 0.9 10^3/ul (0.3-0.9); MONOCYTES % 4.9 % (0.0-11.0); PLATELET COUNT 320 10^3/UL (140-415); RED BLOOD COUNT 2.74 10^6/ul (4.70-6.10); RED CELL DISTRIBUTION WIDTH 16.5 % (11.5-14.5); WHITE BLOOD COUNT 17.6 10^3/ul (4.8-10.8)
[2016-10-09 05:30] LABS: POTASSIUM 3.8 mmol/L (3.5-5.1)
[2016-10-09 05:32] LABS: CREATININE 1.3 mg/dl (0.61-1.24)
[2016-10-09 05:34] LABS: CALCIUM 10.6 mg/dl (8.4-10.2); MAGNESIUM 1.9 mg/dl (1.7-2.5)
[2016-10-09] MEDS ORDERED: ALTEPLASE (CATHFLO) 2 MG INJ CATHETER ONE ×2 (08:00)
--- NOTE | 2016-10-09 08:34 | PN ---
DATE: 10/09/2016 SUBJECTIVE: The patient remains critical but stable. The patient's blood pressures are in the low 90s. The patient has had no further episodes of hematochezia. No other acute events noted. No hem optysis, hematemesis. OBJECTIVE: VITAL SIGNS: Blood pressure 107/67, respirations 23, pulse 104, temperature 98.8. INPUT AND OUTPUT: Reviewed. The patient had 2 liters in, 1.5 liters out. HEENT: Head is normocephalic. NECK: Supple. HEART: Tachycardic. LUNGS: Show diminished breath sounds at base. ABDOMEN: Soft, nontender to palpation. No rebound or guarding. Positive PEG. EXTREMITIES: Negative for clubbing, cyanosis, edema. DERMATOLOGIC: No rashes. MUSCULOSKELETAL: Positive decubitus wound. NEUROLOGIC: No change in exam. MEDICATIONS: The patient's medications have been reviewed. LABORATORY DATA: Showed sodium 150, potassium 3.9, chloride 115, BUN 44, creatinine 1.30. White co unt 17.6, hemoglobin 8.1, hematocrit 26.8, platelet count 320. ASSESSMENT AND PLAN: 1. Severe sepsis, etiology secondary to decubitus wound, UTI. The patient remains on broad spectru m antibiotics. Continue to monitor. Follow up with infectious disease. Follow up white count that is trending down. 2. Acute lower gastrointestinal bleed. The etiology is unclear, possibly infectious, possibly dive rticular. GI bleeding has resolved. We will continue to monitor H and H. Appreciate GI's evaluati on. 3. Acute hypoxemic respiratory failure secondary to sepsis and COPD. Continue current treatment pl an. Continue supplemental oxygen, nebulizers. 4. History of tongue cancer with likely metastasis to pelvis. The patient is status post radiation therapy, not a chemotherapy candidate. 5. Dysphagia, status post PEG. Continue tube feeding. 6. Stage IV decubitus wound. Continue wound care. 7. Parkinson disease, neurodegenerative disorder. Continue to monitor. 8. Acute diastolic heart failure. Continue current medical management. IV fluids were discontinue d. We will give intermittent diuretic therapy if hemodynamically stable. 9. Anemia, etiology secondary to recent gastrointestinal bleed. Continue to monitor H and H levels . Transfuse as needed. 10. Prostate cancer status post TURP, status post suprapubic catheter. Continue to monitor. 11. Right-sided hydronephrosis secondary to pelvic mass. Continue to monitor. 12. Acute encephalopathy, dementia. No change. 13. Hypernatremia. We will increase free water flushes 200 mL q. 4 hours. 14. Nonoliguric acute kidney injury, etiology secondary to acute tubular necrosis. At this point, continue current treatment plan, supportive care, renally dose all medications, avoid nephrotoxins. 15. Gastrointestinal and deep venous thrombosis prophylaxis. Continue proton pump inhibitor and se quential leg squeezers. Please note I spent over 40 minutes of critical care time with this patient. Dictated By: JAX ANDRADE/NTS Conf#: [id number] DID#: [id number]
[2016-10-09] MEDS: MULTIVITAMINS 5 ML CUP GTB SCH (08:48)
[2016-10-09] MEDS: FLUCONAZOLE 100 MG TAB GTB SCH (08:48)
[2016-10-09] MEDS: BACITRACIN/POLYMYX 3.5 GM OPH OINT BOTH EYES SCH ×2 (08:48→20:45)
[2016-10-09] MEDS: ASCORBIC ACID 500 MG TAB GTB SCH ×2 (08:48→20:44)
[2016-10-09] MEDS: MEROPENEM 500 MG/100 ML (PMX) 100 ML IVPB SCH ×2 (08:48→20:49)
[2016-10-09] MEDS: FERROUS SULFATE 60 MG/ML 5ML CUP GTB SCH ×2 (08:48→20:44)
[2016-10-09] MEDS: LINEZOLID 600 MG/D5W (PMX) 300 ML IVPB SCH ×2 (08:49→20:49)
[2016-10-09] MEDS: BACITRACIN 0.9 GM OINT TOP SCH ×2 (08:51→20:50)
--- NOTE | 2016-10-09 10:15 | CONS ---
Date/Time of Note Date/Time of Note DATE: 10/09/16 TIME: 10:13 Assessment/Plan Assessment/Plan Additional Assessment/Plan Assessment and recommendations; 1. Patient admitted with sepsis and hypotension with interval improvement. 2. Pneumonia, currently on appropriate antibiotic regimen. 3. History of severe mental unresponsiveness without any interval improvement. 4. History of renal insufficiency. 5. Hyponatremia. Patient on free water for correction of that. Continue current treatment. Prognosis is poor. Consultation Date/Type/Reason Admit Date/Time Sep 30, 2016 at 17:03 Type of Consultation: Pulmonary/critical care 24 HR Interval Summary Free Text/Dictation Patient condition remains unchanged. Remains unresponsive. This is suspicious underlying mental status. Patient however has remained hemodynamically stable. General examination; elderly male, unresponsive. Currently in no distress. Exam/Review of Systems Vital Signs Vitals Vital Signs Date Time Temp Pulse Resp B/P Pulse Ox O2 Delivery O2 Flow Rate FiO2 10/09/16 09:21 103 10/09/16 08:00 Nasal Cannula 3.0 10/09/16 08:00 26 107/66 100 10/09/16 07:43 32 10/09/16 04:00 98.8 Intake and Output 10/08/16 10/08/16 10/09/16 15:00 23:00 07:00 Intake Total 610 ml 820 ml 690 ml Output Total 440 ml 550 ml 400 ml Balance 170 ml 270 ml 290 ml Exam HEENT examination; supple neck, no JVD. No lymphadenopathy. Midline trachea. There is a well-healed tracheostomy scar. Pupils are small bilaterally. Chest examination; diminished breath sounds throughout with scattered crackles. S1-S2 audible, no murmurs. Regular rhythm. Abdomen examination; soft, scaphoid. No organomegaly. G-tube in place. Bowel sounds audible. Extremity examination; no peripheral edema. 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 Results Result Diagram: 10/09/16 0435 10/09/16 0435 Results 24 hrs Laboratory Tests Test 10/09/16 04:35 Anion Gap 14 Basophils # 0.0 Basophils % 0.1 Blood Urea Nitrogen 44 H Calcium Level 10.6 H Carbon Dioxide Level 25 Chloride Level 115 H Creatinine 1.30 H Eosinophils # 0.1 Eosinophils % 0.6 Glucose Level 98 Hematocrit 26.8 L Hemoglobin 8.1 L Lymphocytes # 0.5 L Lymphocytes % 2.7 L Magnesium Level 1.9 Mean Corpuscular Hemoglobin 29.6 Mean Corpuscular Hemoglobin Concent 30.2 L Mean Corpuscular Volume 97.8 Mean Platelet Volume 10.4 Monocytes # 0.9 Monocytes % 4.9 Neutrophils # 16.0 H Neutrophils % 91.0 H Nucleated Red Blood Cells # 0.0 Nucleated Red Blood Cells % 0.0 Phosphorus Level 4.0 Platelet Count 320 Potassium Level 3.8 Red Blood Count 2.74 L Red Cell Distribution Width 16.5 H Sodium Level 150 H White Blood Count 17.6 H Medications Medications Current Medications Acetaminophen (Tylenol Liquid) 650 mg Q6 PRN GTB PAIN AND OR ELEVATED TEMP Last administered on 10/04/16 05:37; Admin Dose 650 MG; Start 09/30/16 at 18:00 Eye Lubricant (Artificial Tears Oph) 2 drop HS BOTH EYES Last administered on 21:28; Admin Dose 2 DROP; Start 09/30/16 at 21:00 Polyethylene Glycol (Miralax) 17 gm BID GTB Last administered on 10/03/16 20: 54; Admin Dose 17 GM; Start 09/30/16 at 21:00; Status Future Hold Zolpidem Tartrate (Ambien) 5 mg HS PRN PO INSOMNIA; Start 09/30/16 at 18:00 Senna (Senokot (Ped)) 5 ml HS GTB Last administered on 10/03/16 20:54; Admin Dose 5 ML; Start 09/30/16 at 21:00; Status Future Hold Bacitracin (Bacitracin Oint (Ud)) 1 applic BID TOP Last administered on 08:51; Admin Dose 1 APPLIC; Start 09/30/16 at 21:00 Doxazosin Mesylate (Cardura) 1 mg HS PO ; Start 09/30/16 at 21:00; Status Future Hold Ferrous Sulfate (Feosol Liquid Cup) 300 mg BID GTB Last administered on 08:48; Admin Dose 300 MG; Start 09/30/16 at 21:00 Fluconazole (Diflucan) 100 mg DAILY GTB Last administered on 10/09/16 08:48; Admin Dose 100 MG; Start 10/01/16 at 09:00 Hypromellose 1 drop 1 drop Q6H PRN BOTH EYES IRRITATION Last administered on 16:30; Admin Dose 1 DROP; Start 09/30/16 at 20:00 Linezolid (Zyvox 600mg/D5W (Pmx)) 300 ml @ 300 mls/hr Q12 IVPB Last administered on 10/09/16 08:49; Admin Dose 300 MLS/HR; Start 10/01/16 at 21:00 Acetaminophen (Tylenol Liquid) 650 mg Q4H PRN GTB FEVER/PAIN; Start 10/03/16 at 04:00 Ascorbic Acid (Vitamin C) 500 mg BID GTB Last administered on 10/09/16 08:48; Admin Dose 500 MG; Start 10/03/16 at 21:00 Multivitamins (Thera-Plus) 5 ml DAILY GTB Last administered on 10/09/16 08:48 ; Admin Dose 5 ML; Start 10/04/16 at 09:00 Tramadol HCl 75 mg 75 mg Q6H PRN GTB PAIN Last administered on 10/09/16 00:46 ; Admin Dose 75 MG; Start 10/04/16 at 12:00 Meropenem (Merrem 500 Mg/ 100 ml (Pmx)) 100 ml @ 200 mls/hr Q12 IVPB Last administered on 10/09/16 08:48; Admin Dose 200 MLS/HR; Start 10/05/16 at 21:00 Sodium Hypochlorite (Dakin'S (1/4 Strength)) 1 applic DAILY IRR Last administered on 10/08/16 09:02; Admin Dose 1 APPLIC; Start 10/05/16 at 15:30 Hydrocortisone (Hydrocortisone 0.5% Oint) 1 applic BID PRN TOP ITCHING; Start 10/07/16 at 08:00 Bacitracin/ Polymyxin B Sulfate (Ak-Poly-Jaun Oph Oint) 1 applic Q12 BOTH EYES Last administered on 10/09/16 08:48; Admin Dose 1 APPLIC; Start 10/08/16 at 16: 30 WERNER CHURCH Oct 09, 2016 10:15
[2016-10-09] MEDS: ACETAMINOPHEN 650MG/20.3ML CUP GTB PRN (12:37)
--- NOTE | 2016-10-09 13:58 | CONS ---
Date/Time of Note Date/Time of Note DATE: 10/09/16 TIME: 13:58 Assessment/Plan Assessment/Plan Chief Complaint/Hosp Course ID PROGRESS NOTE CURRENT ABX=> Meropenem, Zyvox, Fluconazole + Polysporin OPTH Oint OU s/p Flagyl. s/p Colistin 24H INTERVAL SUMMARY * No new issues -- HOB up 90 degrees w/tachypnea + use of accessory muscles for ventilation effort * Afebrile, mild tachycardia, eyes open, non-tracking to verbal stimuli * Chronic debility - PHYSICAL EXAMINATION: GENERAL: Frail appearing, open mouth breathing w/mild tachypnea, no stridor HEENT: Red conjunctiva, open eyes NECK: Supple, trachea midline. CHEST: Rise symmetrical, diminished bilateral, no wheeze HEART: Pulse RRR - mild tachycardia ABDOMEN: Distended EXTREMITIES: Warm ID ASSESSMENT 75 yo M w/chronic encephalopathy admit from [facility] with: 1. s/p hypotension = shock, hypovolemia + tachycardia 2/2 GIB + Sepsis w/SIRS , low grade temps, leukocytosis => IMPROVED 2. Dysphagia with secretion retention and possible ongoing aspiration pneumonitis syndrome without full blown PNA 3. Multiple wounds, infected status post debridement, possibly osteomyelitis. 5. Status post diarrhea. 6. Status post urinary tract infection. 7. 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 8. Bilateral conjunctivitis/blepharitis => Rx Polysporin ointment 10/08 9. CLEM -> Improved OFF COLISTIN IV (-)MRSA Nares INVASIVES: PICC, FC, PEG ABX ALLERGY: PCN CURRENT ABX: => Merrem, Zyvox, Diflucan, + Polysporin OPTH Ointment OU s/p Flagyl. s/p Colistin ID RECOMMENDATIONS 1. Continue current ABX 2. Chronic debility, poor shelter prognosis, poor quality of life ?Code Status ? . Problems: Consultation Date/Type/Reason Admit Date/Time Sep 30, 2016 at 17:03 Initial Consult Date 10/05/16 Type of Consultation: ID Exam/Review of Systems Vital Signs Vitals Vital Signs Date Time Temp Pulse Resp B/P Pulse Ox O2 Delivery O2 Flow Rate FiO2 10/09/16 12:43 104 10/09/16 12:33 33 96 Nasal Cannula 3.0 32 10/09/16 12:00 99.0 10/09/16 08:00 107/66 Intake and Output 10/08/16 10/08/16 10/09/16 15:00 23:00 07:00 Intake Total 610 ml 820 ml 690 ml Output Total 440 ml 550 ml 400 ml Balance 170 ml 270 ml 290 ml Results Result Diagram: 10/09/16 0435 10/09/16 0435 Results 24 hrs Laboratory Tests Test 10/09/16 04:35 Anion Gap 14 Basophils # 0.0 Basophils % 0.1 Blood Urea Nitrogen 44 H Calcium Level 10.6 H Carbon Dioxide Level 25 Chloride Level 115 H Creatinine 1.30 H Eosinophils # 0.1 Eosinophils % 0.6 Glucose Level 98 Hematocrit 26.8 L Hemoglobin 8.1 L Lymphocytes # 0.5 L Lymphocytes % 2.7 L Magnesium Level 1.9 Mean Corpuscular Hemoglobin 29.6 Mean Corpuscular Hemoglobin Concent 30.2 L Mean Corpuscular Volume 97.8 Mean Platelet Volume 10.4 Monocytes # 0.9 Monocytes % 4.9 Neutrophils # 16.0 H Neutrophils % 91.0 H Nucleated Red Blood Cells # 0.0 Nucleated Red Blood Cells % 0.0 Phosphorus Level 4.0 Platelet Count 320 Potassium Level 3.8 Red Blood Count 2.74 L Red Cell Distribution Width 16.5 H Sodium Level 150 H White Blood Count 17.6 H Medications Medications Current Medications Acetaminophen (Tylenol Liquid) 650 mg Q6 PRN GTB PAIN AND OR ELEVATED TEMP Last administered on 10/09/16 12:37; Admin Dose 650 MG; Start 09/30/16 at 18:00 Eye Lubricant (Artificial Tears Oph) 2 drop HS BOTH EYES Last administered on 21:28; Admin Dose 2 DROP; Start 09/30/16 at 21:00 Polyethylene Glycol (Miralax) 17 gm BID GTB Last administered on 10/03/16 20: 54; Admin Dose 17 GM; Start 09/30/16 at 21:00; Status Future Hold Zolpidem Tartrate (Ambien) 5 mg HS PRN PO INSOMNIA; Start 09/30/16 at 18:00 Senna (Senokot (Ped)) 5 ml HS GTB Last administered on 10/03/16 20:54; Admin Dose 5 ML; Start 09/30/16 at 21:00; Status Future Hold Bacitracin (Bacitracin Oint (Ud)) 1 applic BID TOP Last administered on 08:51; Admin Dose 1 APPLIC; Start 09/30/16 at 21:00 Doxazosin Mesylate (Cardura) 1 mg HS PO ; Start 09/30/16 at 21:00; Status Future Hold Ferrous Sulfate (Feosol Liquid Cup) 300 mg BID GTB Last administered on 08:48; Admin Dose 300 MG; Start 09/30/16 at 21:00 Fluconazole (Diflucan) 100 mg DAILY GTB Last administered on 10/09/16 08:48; Admin Dose 100 MG; Start 10/01/16 at 09:00 Hypromellose 1 drop 1 drop Q6H PRN BOTH EYES IRRITATION Last administered on 16:30; Admin Dose 1 DROP; Start 09/30/16 at 20:00 Linezolid (Zyvox 600mg/D5W (Pmx)) 300 ml @ 300 mls/hr Q12 IVPB Last administered on 10/09/16 08:49; Admin Dose 300 MLS/HR; Start 10/01/16 at 21:00 Acetaminophen (Tylenol Liquid) 650 mg Q4H PRN GTB FEVER/PAIN; Start 10/03/16 at 04:00 Ascorbic Acid (Vitamin C) 500 mg BID GTB Last administered on 10/09/16 08:48; Admin Dose 500 MG; Start 10/03/16 at 21:00 Multivitamins (Thera-Plus) 5 ml DAILY GTB Last administered on 10/09/16 08:48 ; Admin Dose 5 ML; Start 10/04/16 at 09:00 Tramadol HCl 75 mg 75 mg Q6H PRN GTB PAIN Last administered on 10/09/16 00:46 ; Admin Dose 75 MG; Start 10/04/16 at 12:00 Meropenem (Merrem 500 Mg/ 100 ml (Pmx)) 100 ml @ 200 mls/hr Q12 IVPB Last administered on 10/09/16 08:48; Admin Dose 200 MLS/HR; Start 10/05/16 at 21:00 Sodium Hypochlorite (Dakin'S (1/4 Strength)) 1 applic DAILY IRR Last administered on 10/08/16 09:02; Admin Dose 1 APPLIC; Start 10/05/16 at 15:30 Hydrocortisone (Hydrocortisone 0.5% Oint) 1 applic BID PRN TOP ITCHING; Start 10/07/16 at 08:00 Bacitracin/ Polymyxin B Sulfate (Ak-Poly-Jaun Oph Oint) 1 applic Q12 BOTH EYES Last administered on 10/09/16 08:48; Admin Dose 1 APPLIC; Start 10/08/16 at 16: 30 CEASAR VIEYRA NP Oct 09, 2016 13:58
[2016-10-09] MEDS: SODIUM HYPOCHLORITE 0.125% 473 ML BTL IRR SCH (15:00)
--- NOTE | 2016-10-09 17:23 | CONS ---
Date/Time of Note Date/Time of Note DATE: 10/09/16 TIME: 17:22 Assessment/Plan Assessment/Plan Additional Assessment/Plan Additional Assessment/Plan 1. Rectal bleeding, mostly from radiation proctitis for prostate cancer, rule out also mass in the pelvis eroding into the rectum. This mass was told to the patient at [facility] as a tongue cancer migrated down into the pelvis as a distant metastasis.bleeding stopped 2. Dysphagia, status post gastrostomy tube. 3. Parkinson disease and neurodegenerative disorder. 4. Anemia, chronic. He had multiple transfusions in the past. 5. History of prostate cancer for which he had transurethral resection of prostate, radiation and chemotherapy a few years ago. 6. Tongue cancer for which he had treatment 13 to 14 years ago. 7. Chronic neurogenic bladder. 8. Right-sided hydronephrosis. 9. Hyponatremia. 10. Renal insufficiency. 11. Severe sepsis, most probably from decubitus ulcer infection. Plan monitor H&H,which is stable continue antibiotics ppi no blood thinner Consultation Date/Type/Reason Admit Date/Time Sep 30, 2016 at 17:03 Initial Consult Date 10/05/16 Type of Consultation: ID 24 HR Interval Summary Subjective hx not possible: pt non-verbal, pt critical Exam/Review of Systems Vital Signs Vitals Vital Signs Date Time Temp Pulse Resp B/P Pulse Ox O2 Delivery O2 Flow Rate FiO2 10/09/16 16:12 98.6 10/09/16 13:00 106 27 87/55 99 10/09/16 12:33 Nasal Cannula 3.0 32 Intake and Output 10/08/16 10/08/16 10/09/16 15:00 23:00 07:00 Intake Total 610 ml 820 ml 690 ml Output Total 440 ml 550 ml 400 ml Balance 170 ml 270 ml 290 ml Exam Constitutional: alert, oriented, well developed Psych: nl mood/affect, no complaints Head: atraumatic, normocephalic Eyes: EOMI, PERRL, nl conjunctiva, nl lids, nl sclera ENMT: nl external ears & nose, nl lips & teeth, nl nasal mucosa & septum Neck: non-tender, supple Respiratory: clear to auscultation, normal air movement Cardiovascular: nl pulses, regular rate and rhythm Gastrointestinal: nl liver, spleen, non-tender, soft Musculoskeletal: nl extremities to inspection, nl gait and stance Extremities: normal pulses Neurological: DORMITORY MAID II-XII intact, nl mental status, nl speech, nl strength Skin: nl turgor, No rash or lesions Lymph: nl lymph nodes Results Result Diagram: 10/09/1643410/09/16434 Results 24 hrs Laboratory Tests Test 10/09/16 04:35 Anion Gap 14 Basophils # 0.0 Basophils % 0.1 Blood Urea Nitrogen 44 H Calcium Level 10.6 H Carbon Dioxide Level 25 Chloride Level 115 H Creatinine 1.30 H Eosinophils # 0.1 Eosinophils % 0.6 Glucose Level 98 Hematocrit 26.8 L Hemoglobin 8.1 L Lymphocytes # 0.5 L Lymphocytes % 2.7 L Magnesium Level 1.9 Mean Corpuscular Hemoglobin 29.6 Mean Corpuscular Hemoglobin Concent 30.2 L Mean Corpuscular Volume 97.8 Mean Platelet Volume 10.4 Monocytes # 0.9 Monocytes % 4.9 Neutrophils # 16.0 H Neutrophils % 91.0 H Nucleated Red Blood Cells # 0.0 Nucleated Red Blood Cells % 0.0 Phosphorus Level 4.0 Platelet Count 320 Potassium Level 3.8 Red Blood Count 2.74 L Red Cell Distribution Width 16.5 H Sodium Level 150 H White Blood Count 17.6 H Medications Medications Current Medications Acetaminophen (Tylenol Liquid) 650 mg Q6 PRN GTB PAIN AND OR ELEVATED TEMP Last administered on 10/09/16 12:37; Admin Dose 650 MG; Start 09/30/16 at 18:00 Eye Lubricant (Artificial Tears Oph) 2 drop HS BOTH EYES Last administered on 21:28; Admin Dose 2 DROP; Start 09/30/16 at 21:00 Polyethylene Glycol (Miralax) 17 gm BID GTB Last administered on 10/03/16 20: 54; Admin Dose 17 GM; Start 09/30/16 at 21:00; Status Future Hold Zolpidem Tartrate (Ambien) 5 mg HS PRN PO INSOMNIA; Start 09/30/16 at 18:00 Senna (Senokot (Ped)) 5 ml HS GTB Last administered on 10/03/16 20:54; Admin Dose 5 ML; Start 09/30/16 at 21:00; Status Future Hold Bacitracin (Bacitracin Oint (Ud)) 1 applic BID TOP Last administered on 08:51; Admin Dose 1 APPLIC; Start 09/30/16 at 21:00 Doxazosin Mesylate (Cardura) 1 mg HS PO ; Start 09/30/16 at 21:00; Status Future Hold Ferrous Sulfate (Feosol Liquid Cup) 300 mg BID GTB Last administered on 08:48; Admin Dose 300 MG; Start 09/30/16 at 21:00 Fluconazole (Diflucan) 100 mg DAILY GTB Last administered on 10/09/16 08:48; Admin Dose 100 MG; Start 10/01/16 at 09:00 Hypromellose 1 drop 1 drop Q6H PRN BOTH EYES IRRITATION Last administered on 16:30; Admin Dose 1 DROP; Start 09/30/16 at 20:00 Linezolid (Zyvox 600mg/D5W (Pmx)) 300 ml @ 300 mls/hr Q12 IVPB Last administered on 10/09/16 08:49; Admin Dose 300 MLS/HR; Start 10/01/16 at 21:00 Acetaminophen (Tylenol Liquid) 650 mg Q4H PRN GTB FEVER/PAIN; Start 10/03/16 at 04:00 Ascorbic Acid (Vitamin C) 500 mg BID GTB Last administered on 10/09/16 08:48; Admin Dose 500 MG; Start 10/03/16 at 21:00 Multivitamins (Thera-Plus) 5 ml DAILY GTB Last administered on 10/09/16 08:48 ; Admin Dose 5 ML; Start 10/04/16 at 09:00 Tramadol HCl 75 mg 75 mg Q6H PRN GTB PAIN Last administered on 10/09/16 00:46 ; Admin Dose 75 MG; Start 10/04/16 at 12:00 Meropenem (Merrem 500 Mg/ 100 ml (Pmx)) 100 ml @ 200 mls/hr Q12 IVPB Last administered on 10/09/16 08:48; Admin Dose 200 MLS/HR; Start 10/05/16 at 21:00 Sodium Hypochlorite (Dakin'S (1/4 Strength)) 1 applic DAILY IRR Last administered on 10/09/16 15:00; Admin Dose 1 APPLIC; Start 10/05/16 at 15:30 Hydrocortisone (Hydrocortisone 0.5% Oint) 1 applic BID PRN TOP ITCHING; Start 10/07/16 at 08:00 Bacitracin/ Polymyxin B Sulfate (Ak-Poly-Jaun Oph Oint) 1 applic Q12 BOTH EYES Last administered on 10/09/16t 08:48; Admin Dose 1 APPLIC; Start 10/08/16 at 16: 30 CHELE CASE MD Oct 09, 2016 17:23
[2016-10-09] MEDS: ARTIFICIAL TEARS 15 ML OPH BOTH EYES SCH (20:45)
--- NOTE | 2016-10-09 23:57 | PN ---
Date/Time of Note Date/Time of Note DATE: 10/09/16 TIME: 23:57 Assessment/Plan Lines/Catheters IV Catheter Type (from [facility]): PICC Line Cruz in Place (from [facility]): Yes (Suprapubic Cath) Assessment/Plan Chief Complaint/Hosp Course 1. Decubitus ulceration with necrotic tissue -off loading -optimization of nutrition -vit c -local care -debridement when cleared by team and family 2. Sepsis, multifactoria -abx -supportive -wound care -pulmonary toilette -aspiration precautions 3. Dysphagia on tube feeds 4. Anemia -monitor 5. Pelvic mass hx of tongue and prostate cancer, currently with hydronephrosis -heme/onc -urology 6. Renal insufficiency -judicious fluid management 7. Diastolic heart failure -cardiac optimization -judicious fluid management 8. Hypoxemic respiratory failure with advanced COPD and aspiration PNAs -pulmonary toilette -aspiration precautions 9. Parkinson disease/neurodegenerative disorder with dementia -medical optimization Thank you, Problems: Subjective 24 Hr Interval Summary No f/c. No cough. No sz. No rash. Wounds. Min sob. No cp. No vomiting. Bowel function. No bleeding. No bloating. Exam/Review of Systems Vital Signs Vitals Vital Signs Date Time Temp Pulse Resp B/P Pulse Ox O2 Delivery O2 Flow Rate FiO2 10/10/16 01:35 3.0 10/10/16 01:35 81 27 98 Nasal Cannula 10/09/16 20:00 97.8 130/72 10/09/16 17:58 32 Intake and Output 10/09/16 10/09/16 10/10/16 15:00 23:00 07:00 Intake Total 400 ml Balance 400 ml Exam Constitutional: distress, No oriented Psych: anxiety, No nl mood/affect Head: normocephalic Eyes: EOMI, PERRL, nl conjunctiva, No icteric ENMT: nl external ears & nose, No mucosa pink and moist Neck: jvd, No non-tender, No supple Respiratory: No congested cough, No normal air movement Cardiovascular: No edema, No regular rate and rhythm Gastrointestinal: non-tender, soft, No rebound or guarding Musculoskeletal: No nl extremities to inspection, No nl gait and stance Extremities: No calf tenderness, No cyanosis Neurological: No nl mental status, No nl speech, No nl strength Skin: rash or lesions (decubitus ulcers with necrotic debris), No diaphoresis Lymph: nontender Results Result Diagram: 10/09/16 0435 10/09/16 0435 CHELSY CAIN MD Oct 09, 2016 23:57
[2016-10-10] VITALS (32 sets, daily range): BP systolic 86–149; BP diastolic 52–98; PULSE 74–115; RESP 11–30
[2016-10-10] MEDS: LEVALBUTEROL (NEB) 0.63 MG/3 ML AMP HHN SCH ×4 (01:24→20:30)
--- NOTE | 2016-10-10 05:02 | CONS ---
DATE OF ADMISSION: 09/30/2016 DATE OF CONSULTATION: 10/05/2016 TYPE OF CONSULTATION: Surgical. REFERRING PHYSICIAN: Cedric Varma DO CHIEF COMPLAINT: 1. Decubitus ulceration with necrotic tissue. 2. Anemia. HISTORY OF PRESENT ILLNESS: Mr. Abiel Vera is a 75-year-old male with significant comorbidities who was a resident of [place] but transferred to ICU for hypotension secondary to bacterial cystitis, aspiration pneumonia, and necrotic wound. There were no noted fevers, chills, vomiting, cough, tk st normal; however, he has occasional shortness of breath, especially position dependent. He has al so had a pelvic mass with reported biopsy identifying adenocarcinoma with primary tongue cancer ____ further evaluation and treatment. PAST MEDICAL HISTORY: 1. Tongue cancer. 2. 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 3. Parkinson disease. 4. Dysphagia. 5. Depression. 6. Subdural hematoma. 7. Multiple falls. 8. Meningioma. 9. Prostate cancer. 10. Hypertension. 11. Clostridium difficile. 12. Decubitus ulceration with necrotic tissue. 13. Hypotension. 14. Sepsis with shock. 15. Hypoxemic respiratory failure. 16. Aspiration pneumonia. 17. Possible diastolic heart failure. 18. Diarrhea. 19. Anemia. 20. Encephalopathy. PAST SURGICAL HISTORY: 1. TURP. 2. Tongue resection with radiation. 3. Feeding tube. 4. Biopsy of pelvic mass. 5. Excision and debridement of left ischial and sacral ulcers by ____ in August. MEDICATIONS: As per OCT. ALLERGIES: MULTIPLE AND INCLUDE 1. PENICILLIN. 2. CODEINE. 3. HYDROCODONE. 4. MORPHINE. SOCIAL HISTORY: No current alcohol, drugs, or tobacco. FAMILY HISTORY: Noncontributory. REVIEW OF SYSTEMS: A 12-point review of systems negative unless addressed in HPI. PHYSICAL EXAMINATION: VITAL SIGNS: Blood pressure 97/67. GENERAL: Anxious. HEENT: Pupils are equally reactive. No scleral icterus. NECK: Baseline rigidity. CARDIAC: S1, S2, tachy. PULMONARY: Minimally coarse bilaterally. No wheezing. ABDOMEN: Soft, nontender. Feeding tube. No rebound, no guarding. EXTREMITIES: No edema. SKIN: No rashes, no jaundice; however, decubitus ulcers with necrotic tissue. NEUROLOGIC: Awake, seems confused. LABORATORY AND RADIOGRAPHIC DATA: As per the chart and HPI. ASSESSMENT AND PLAN: Abiel Vera is a 75-year-old male with significant comorbidities. 1. Necrotic decubitus ulcerations. Continue offloading, optimization of nutrition, vitamin C, loca l care, and debridement once cleared by team and family. 2. Sepsis, multifactorial. Continue antibiotics, supportive care, wound care, and pulmonary toilet with aspiration precautions. 3. Dysphagia on tube feeds. 4. Anemia. Continue to monitor. 5. Pelvic mass with history of tongue and prostate cancer, currently with hydronephrosis. Defer to hematology/oncology and urology. 6. Renal insufficiency. Continue judicious fluid management. 7. Diastolic heart failure. Continue cardiac optimization and judicious fluid management. 8. Hypoxemic respiratory failure with advanced chronic obstructive pulmonary disease and aspiration pneumonias. Continue pulmonary toilet and aspiration precautions. 9. Parkinson disease/neurodegenerative disorder with dementia. Continue medical optimization. Thank you very much for consulting me on this patient's care. Dictated By: CHELSY GAINES/CHELSI Conf#: [id number] DID#: [id number]
[2016-10-10] MEDS: traMADol 50 MG TAB GTB PRN ×2 (06:11→21:28)
[2016-10-10 06:14] LABS: ADD SCAN DIFF NO
[2016-10-10 06:42] LABS: POTASSIUM 3.8 mmol/L (3.5-5.1)
[2016-10-10 06:44] LABS: CREATININE 1.26 mg/dl (0.61-1.24)
[2016-10-10 06:45] LABS: CALCIUM 10.2 mg/dl (8.4-10.2); MAGNESIUM 1.8 mg/dl (1.7-2.5); PHOSPHORUS 3.9 mg/dl (2.5-4.9)
[2016-10-10 06:58] LABS: BASOPHILS % 0.1 % (0.0-2.0); EOSINOPHILS # 0.1 10^3/ul (0.0-0.5); EOSINOPHILS % 0.8 % (0.0-7.0); HEMATOCRIT 24.1 % (42.0-52.0); HEMOGLOBIN 7.1 g/dl (14.0-18.0); LYMPHOCYTES # 0.6 10^3/ul (0.8-2.9); LYMPHOCYTES % 3.6 % (15.0-51.0); MEAN CORPUSCULAR HEMOGLOBIN 29.1 pg (29.0-33.0); MEAN CORPUSCULAR HGB CONC 29.5 g/dl (32.0-37.0); MEAN CORPUSCULAR VOLUME 98.8 fl (82.0-101.0); MEAN PLATELET VOLUME 10.5 fl (7.4-10.4); MONOCYTE # 1.1 10^3/ul (0.3-0.9); NEUTROPHIL # 15.6 10^3/ul (1.6-7.5); NEUTROPHILS % 88.4 % (39.0-77.0); PLATELET COUNT 293 10^3/UL (140-415); RED BLOOD COUNT 2.44 10^6/ul (4.70-6.10); RED CELL DISTRIBUTION WIDTH 16.3 % (11.5-14.5); WHITE BLOOD COUNT 17.6 10^3/ul (4.8-10.8)
[2016-10-10] MEDS ORDERED: SOD CHLORIDE 0.9% 250 ML IV* ONE (07:30)
--- NOTE | 2016-10-10 08:06 | PN ---
Date/Time of Note Date/Time of Note DATE: 10/10/16 TIME: 08:04 Assessment/Plan Lines/Catheters IV Catheter Type (from [facility]): PICC Line Cruz in Place (from [facility]): Yes (Suprapubic Cath) Assessment/Plan Chief Complaint/Hosp Course 1. Decubitus ulceration with necrotic tissue -off loading -optimization of nutrition -vit c -local care -debridement prn 2. Sepsis, multifactorial -abx -supportive -wound care -pulmonary toilette -aspiration precautions 3. Dysphagia on tube feeds 4. Anemia -monitor 5. Pelvic mass hx of tongue and prostate cancer, currently with hydronephrosis -heme/onc -urology 6. Renal insufficiency -judicious fluid management 7. Diastolic heart failure -cardiac optimization -judicious fluid management 8. Hypoxemic respiratory failure with advanced COPD and aspiration PNAs -pulmonary toilette -aspiration precautions 9. Parkinson disease/neurodegenerative disorder with dementia -medical optimization Thank you, Problems: Subjective 24 Hr Interval Summary Leukocytosis. No f/c. No cough. No sz. No rash. Wounds. Min sob. No cp. No vomiting. Bowel function. No bleeding. No bloating. Exam/Review of Systems Vital Signs Vitals Vital Signs Date Time Temp Pulse Resp B/P Pulse Ox O2 Delivery O2 Flow Rate FiO2 10/10/16 05:00 98 27 119/72 100 Nasal Cannula 3.0 10/10/16 04:00 97.9 10/09/16 17:58 32 Intake and Output 10/09/16 10/09/16 10/10/16 15:00 23:00 07:00 Intake Total 400 ml 975 ml 925 ml Output Total 325 ml 455 ml Balance 400 ml 650 ml 470 ml Exam Free Text/Dictation Constitutional: distress, No oriented Psych: anxiety, No nl mood/affect Head: normocephalic Eyes: EOMI, PERRL, nl conjunctiva, No icteric ENMT: nl external ears & nose, No mucosa pink and moist Neck: jvd, No non-tender, No supple Respiratory: No congested cough, No normal air movement Cardiovascular: No edema, No regular rate and rhythm Gastrointestinal: non-tender, soft, No rebound or guarding Musculoskeletal: No nl extremities to inspection, No nl gait and stance Extremities: No calf tenderness, No cyanosis Neurological: No nl mental status, No nl speech, No nl strength Skin: rash or lesions (decubitus ulcers with necrotic debris), No diaphoresis Lymph: nontender Results Result Diagram: 10/10/16 0600 10/10/16 06 CHELSY CAIN MD Oct 10, 2016 08:06
--- NOTE | 2016-10-10 08:32 | OPR ---
Date/Time of Note Date/Time of Note DATE: 10/10/16 TIME: 08:29 Operative Report Procedure Date: Oct 10, 2016 Preoperative Diagnosis Left ischial necrotic stage 4 decubitus ulcer Postoperative Diagnosis Left ischial necrotic stage 4 decubitus ulcer. 8x5cm Operation Performed Excisional debridement of left initial skin, subcutaneous, muscle, fascia. 8 x 5 cm Surgeon: CHELSY CAIN MD Estimated Blood Loss: minimal Specimens Tissue removed but did not sent to pathology Tubes/Drains Packing gauze Complications: None Pt Condition Post Procedure: stable Disposition: other (own room) Indications Per notes Risks, benefits, alternatives as usual and customary. Procedure Description Patient was placed in lateral decubitus with left side up and also head up somewhat. He was prepped and draped. Timeout was performed. All pressure points are all in the padded. His artery on antibiotics. Using scalpel the necrotic tissue was excised off of skin, subcutaneous, muscle , fascia to healthier edges. Hemostasis was controlled with pressure. Wound was irrigated and packed with gauze and dry dressing was applied. Patient tolerated procedure well. CHELSY CAIN MD Oct 10, 2016 08:32
--- NOTE | 2016-10-10 09:23 | PN ---
DATE: 10/10/2016 SUBJECTIVE: The patient remains critical, but stable. The patient's hemoglobin noted to be at 7 gr ams this morning, will receive 2 units of PRBC. The patient's blood pressures have been low but sta ble. No other events noted. OBJECTIVE: VITAL SIGNS: Blood pressure 119/72, pulse is 98, respirations 27, temperature 97.9. I's AND O'S: The patient had 2300 in; 780 out. HEENT: Head is normocephalic. NECK: Supple. HEART: Regular rate. LUNGS: Show diminished breath sounds at base. ABDOMEN: Soft, nontender to palpation without rebound or guarding. EXTREMITIES: Negative for clubbing, cyanosis, edema. DERMATOLOGIC: No rashes. MUSCULOSKELETAL: Positive decubitus wound. NEUROLOGIC: No change in exam. MEDICATIONS: The patient's medications have been reviewed. LABORATORY DATA: Showed sodium 149, potassium 3.9, chloride 115, BUN 46, creatinine 1.26. White co unt 17.6, hemoglobin 7.1, hematocrit 24.1, platelet count is 293. IMAGING: The patient's KUB was reviewed. ASSESSMENT AND PLAN: 1. Severe sepsis, etiology secondary decubitus wound, UTI. The patient remains on broad spectrum a ntibiotics. We will continue current treatment plan. Follow up with Infectious Disease. The patie nt's WBC count is trending down. 2. Acute lower gastrointestinal bleed, etiology unclear, possibly infectious diverticular. GI blee ding has resolved. Will continue to monitor. 3. Anemia. Etiology is secondary to recent GI bleed and possible bleeding from wound site. Will t ransfuse 2 units of PRBC. Continue to monitor H and H levels. Follow up with GI. 4. Acute hypoxemic respiratory failure secondary to sepsis, chronic obstructive pulmonary disease. Continue current treatment plan, nebulizer, supplemental oxygen. 5. 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 The patient is status post radiation th erapy, not a chemotherapy candidate. Continue to monitor. 6. Dysphagia status post PEG, continue tube feeding. 7. Decubitus wound. Continue wound care. 8. Parkinson's disease/neurogenic disorder. Continue current treatment plan. 9. Acute diastolic heart failure. Continue current medical management and IV fluids were discontin ued. 10. Prostate cancer status post TURP, status post suprapubic catheter. Continue to monitor. 11. Right-sided hydronephrosis secondary to pelvic mass. Continue to monitor. 12. Acute encephalopathy. No change. 13. Hypernatremia. The patient's sodium levels remain elevated. We will increase free water flush es at 300 mL q.4h. 14. Nonoliguric acute kidney injury, etiology secondary to acute tubular necrosis. Renal function has stabilized in the last 24 hours. Will continue supportive care, renally dose all meds, avoid ne phrotoxins. 15. Gastrointestinal and deep venous thrombosis prophylaxis. Continue proton pump inhibitor and se quential leg squeezers Please note I spent over 40 minutes of critical care time with this patient. Dictated By: JAX ANDRADE/CHELSI Conf#: [id number] DID#: [id number]
[2016-10-10] MEDS: FERROUS SULFATE 60 MG/ML 5ML CUP GTB SCH ×2 (09:50→20:38)
[2016-10-10] MEDS: FLUCONAZOLE 100 MG TAB GTB SCH (09:50)
[2016-10-10] MEDS: ASCORBIC ACID 500 MG TAB GTB SCH ×2 (09:50→20:38)
[2016-10-10] MEDS: LINEZOLID 600 MG/D5W (PMX) 300 ML IVPB SCH ×2 (09:51→22:00)
[2016-10-10] MEDS: MULTIVITAMINS 5 ML CUP GTB SCH (09:51)
[2016-10-10] MEDS: MEROPENEM 500 MG/100 ML (PMX) 100 ML IVPB SCH ×2 (09:51→20:34)
[2016-10-10] MEDS: BACITRACIN/POLYMYX 3.5 GM OPH OINT BOTH EYES SCH ×2 (09:51→20:43)
[2016-10-10] MEDS: BACITRACIN 0.9 GM OINT TOP SCH ×2 (09:52→20:45)
[2016-10-10] MEDS: SODIUM HYPOCHLORITE 0.125% 473 ML BTL IRR SCH (09:52)
--- NOTE | 2016-10-10 10:32 | CONS ---
Date/Time of Note Date/Time of Note DATE: 10/10/16 TIME: 10:30 Assessment/Plan Assessment/Plan Additional Assessment/Plan Assessment and recommendations; next 1. Patient admitted with sepsis and hypotension with interval improvement. Currently on broad-spectrum antibiotic coverage. 2. History of severe COPD. 3. History of anoxic encephalopathy. With very poor mental status. 4. Anemia. 5. History of renal insufficiency. 6. History of prior colostomy. Continue current treatment. Transfuse packed RBC. Prognosis remains poor. Consultation Date/Type/Reason Admit Date/Time Sep 30, 2016 at 17:03 Type of Consultation: Coronary/critical care 24 HR Interval Summary Free Text/Dictation Patient condition is unchanged. Remains mildly tachypneic. Remains unresponsive. Next General examination; elderly male, currently in no distress. Awake. Unresponsive. Exam/Review of Systems Vital Signs Vitals Vital Signs Date Time Temp Pulse Resp B/P Pulse Ox O2 Delivery O2 Flow Rate FiO2 10/10/16 08:54 100 4.0 10/10/16 08:54 93 30 Nasal Cannula 10/10/16 05:00 119/72 10/10/16 04:00 97.9 10/09/16 17:58 32 Intake and Output 10/09/16 10/09/16 10/10/16 15:00 23:00 07:00 Intake Total 400 ml 975 ml 925 ml Output Total 325 ml 455 ml Balance 400 ml 650 ml 470 ml Exam HEENT examination; supple neck, no JVD. No lymphadenopathy. There is a well- healed tracheostomy scar. Patient has multiple carious teeth. Pupils are small bilaterally. Chest examination; diminished breath sounds throughout. S1-S2 audible, no murmurs. Regular rhythm. Abdomen examination; soft, nondistended. No organomegaly. G-tube in place. Bowel sounds audible. Extremity examination; no peripheral edema. ASSOCIATE SCHOOL PSYCHOLOGIST examination; patient remains unresponsive. Results Result Diagram: 10/10/16 0600 10/10/16 0600 Results 24 hrs Laboratory Tests Test 10/10/16 06:00 Anion Gap 15 Basophils # 0.0 Basophils % 0.1 Blood Urea Nitrogen 46 H Calcium Level 10.2 Carbon Dioxide Level 25 Chloride Level 113 H Creatinine 1.26 H Eosinophils # 0.1 Eosinophils % 0.8 Glucose Level 98 Hematocrit 24.1 L Hemoglobin 7.1 L Lymphocytes # 0.6 L Lymphocytes % 3.6 L Magnesium Level 1.8 Mean Corpuscular Hemoglobin 29.1 Mean Corpuscular Hemoglobin Concent 29.5 L Mean Corpuscular Volume 98.8 Mean Platelet Volume 10.5 H Monocytes # 1.1 H Monocytes % 6.0 Neutrophils # 15.6 H Neutrophils % 88.4 H Nucleated Red Blood Cells # 0.0 Nucleated Red Blood Cells % 0.0 Phosphorus Level 3.9 Platelet Count 293 Potassium Level 3.8 Red Blood Count 2.44 L Red Cell Distribution Width 16.3 H Sodium Level 149 H White Blood Count 17.6 H Medications Medications Current Medications Acetaminophen (Tylenol Liquid) 650 mg Q6 PRN GTB PAIN AND OR ELEVATED TEMP Last administered on 10/09/16 12:37; Admin Dose 650 MG; Start 09/30/16 at 18:00 Eye Lubricant (Artificial Tears Oph) 2 drop HS BOTH EYES Last administered on 20:45; Admin Dose 2 DROP; Start 09/30/16 at 21:00 Polyethylene Glycol (Miralax) 17 gm BID GTB Last administered on 10/03/16 20: 54; Admin Dose 17 GM; Start 09/30/16 at 21:00; Status Future Hold Zolpidem Tartrate (Ambien) 5 mg HS PRN PO INSOMNIA; Start 09/30/16 at 18:00 Senna (Senokot (Ped)) 5 ml HS GTB Last administered on 10/03/16 20:54; Admin Dose 5 ML; Start 09/30/16 at 21:00; Status Future Hold Bacitracin (Bacitracin Oint (Ud)) 1 applic BID TOP Last administered on 09:52; Admin Dose 1 APPLIC; Start 09/30/16 at 21:00 Doxazosin Mesylate (Cardura) 1 mg HS PO ; Start 09/30/16 at 21:00; Status Future Hold Ferrous Sulfate (Feosol Liquid Cup) 300 mg BID GTB Last administered on 09:50; Admin Dose 300 MG; Start 09/30/16 at 21:00 Fluconazole (Diflucan) 100 mg DAILY GTB Last administered on 10/10/16 09:50; Admin Dose 100 MG; Start 10/01/16 at 09:00 Hypromellose 1 drop 1 drop Q6H PRN BOTH EYES IRRITATION Last administered on 16:30; Admin Dose 1 DROP; Start 09/30/16 at 20:00 Linezolid (Zyvox 600mg/D5W (Pmx)) 300 ml @ 300 mls/hr Q12 IVPB Last administered on 10/10/16 09:51; Admin Dose 300 MLS/HR; Start 10/01/16 at 21:00 Acetaminophen (Tylenol Liquid) 650 mg Q4H PRN GTB FEVER/PAIN; Start 10/03/16 at 04:00 Ascorbic Acid (Vitamin C) 500 mg BID GTB Last administered on 10/10/16 09:50; Admin Dose 500 MG; Start 10/03/16 at 21:00 Multivitamins (Thera-Plus) 5 ml DAILY GTB Last administered on 10/10/16 09:51 ; Admin Dose 5 ML; Start 10/04/16 at 09:00 Tramadol HCl 75 mg 75 mg Q6H PRN GTB PAIN Last administered on 10/10/16 06:11 ; Admin Dose 75 MG; Start 10/04/16 at 12:00 Meropenem (Merrem 500 Mg/ 100 ml (Pmx)) 100 ml @ 200 mls/hr Q12 IVPB Last administered on 10/10/16 09:51; Admin Dose 200 MLS/HR; Start 10/05/16 at 21:00 Sodium Hypochlorite (Dakin'S (1/4 Strength)) 1 applic DAILY IRR Last administered on 10/10/16 09:52; Admin Dose 1 APPLIC; Start 10/05/16 at 15:30 Hydrocortisone (Hydrocortisone 0.5% Oint) 1 applic BID PRN TOP ITCHING; Start 10/07/16 at 08:00 Bacitracin/ Polymyxin B Sulfate (Ak-Poly-Jaun Oph Oint) 1 applic Q12 BOTH EYES Last administered on 10/10/16 09:51; Admin Dose 1 APPLIC; Start 10/08/16 at 16: 30 WERNER CHURCH Oct 10, 2016 10:32
--- NOTE | 2016-10-10 14:14 | PN ---
DATE: 10/10/2016 SUBJECTIVE: No acute events. The patient is lying comfortably in bed, no fevers. Vital signs stable. VITAL SIGNS: Temperature 97.9, pulse 93, respirations 27, blood pressure 119/72 , saturation 100 on 3 liters nasal cannula. WBC 17.6, H and H 7.1 and 24.1, platelets 293, neutrophils 88.4, BUN 46, creatinine 1.26. MICROBIOLOGY: Blood culture and urine cultures since 09/2016 had been negative. Stool for C. difficile came back negative. INDWELLINGS: Patient has PEG, PICC line placed on 10/02/2016, and suprapubic catheter. ANTIMICROBIALS: He is on meropenem, Zyvox, fluconazole. ALLERGIES: PENICILLIN. PHYSICAL EXAMINATION: GENERAL: This is a fragile, chronically ill-appearing, elderly man who is lying comfortably in bed. HEENT: Head atraumatic, normocephalic. Sclerae anicteric. Buccal mucosa dry. NECK: Supple, trachea midline. CHEST: Rise symmetrical. Breath sounds with bilateral rhonchi. HEART: S1, S2. ABDOMEN: Soft. Bowel tones present. EXTREMITIES: With trace edema. ASSESSMENT: 1. Severe sepsis, status post shock. 2. Multiple decubitus, status post left showed necrotic wound debridement on . 3. Dysphagia with significant secretion retention, possible ongoing aspiration. 4. Severe chronic obstructive pulmonary disease. 5. Pelvic mass, likely malignant. 6. Metastatic disease with history of tongue and prostate cancer status post TURP, radiation, and chemotherapy with chronic suprapubic catheter. 7. Status post urinary tract infection. PLAN: Patient remains unchanged, overall not improving and doing poorly. He had a wound debridement. Cultures are pending. We are going to continue him on current antimicrobials. Repeat urine culture. Continue management as per primary team and consultants. Dictated By: LUIS ARMANDO MIRANDA SHOT BLASTER for MICHAEL RIVAS/CHELSI Conf#: [id number] DID#: [id number] MTDD
[2016-10-10 15:26] LABS: MICROALBUMIN 5.7 mg/dL
--- NOTE | 2016-10-10 16:44 | CONS ---
Date/Time of Note Date/Time of Note DATE: 10/10/16 TIME: 16:42 Assessment/Plan Assessment/Plan Additional Assessment/Plan Additional Assessment/Plan 1. Rectal bleeding, mostly from radiation proctitis for prostate cancer, rule out also mass in the pelvis eroding into the rectum. This mass was told to the patient at [facility] as a tongue cancer migrated down into the pelvis as a distant metastasis.bleeding stopped 2. Dysphagia, status post gastrostomy tube. 3. Parkinson disease and neurodegenerative disorder. 4. Anemia, chronic. He had multiple transfusions in the past. 5. History of prostate cancer for which he had transurethral resection of prostate, radiation and chemotherapy a few years ago. 6. Tongue cancer for which he had treatment 13 to 14 years ago. 7. Chronic neurogenic bladder. 8. Right-sided hydronephrosis. 9. Hyponatremia. 10. Renal insufficiency. 11. Severe sepsis, most probably from decubitus ulcer infection. Plan monitor H&H,which is stable continue antibiotics ppi no blood thinner debridement as per surgeon Consultation Date/Type/Reason Admit Date/Time Sep 30, 2016 at 17:03 Initial Consult Date 10/05/16 Type of Consultation: Coronary/critical care 24 HR Interval Summary Free Text/Dictation no further bleeding Subjective hx not possible: pt non-verbal, pt critical Exam/Review of Systems Vital Signs Vitals Vital Signs Date Time Temp Pulse Resp B/P Pulse Ox O2 Delivery O2 Flow Rate FiO2 10/10/16 16:00 89 10/10/16 14:49 32 98 Nasal Cannula 3.0 10/10/16 05:00 119/72 10/10/16 04:00 97.9 10/09/16 17:58 32 Intake and Output 10/09/16 10/09/16 10/10/16 15:00 23:00 07:00 Intake Total 400 ml 975 ml 925 ml Output Total 325 ml 455 ml Balance 400 ml 650 ml 470 ml Exam Constitutional: alert, oriented, well developed Psych: nl mood/affect, no complaints Head: atraumatic, normocephalic Eyes: EOMI, PERRL, nl conjunctiva, nl lids, nl sclera ENMT: nl external ears & nose, nl lips & teeth, nl nasal mucosa & septum Neck: non-tender, supple Respiratory: clear to auscultation, normal air movement Cardiovascular: nl pulses, regular rate and rhythm Gastrointestinal: nl liver, spleen, non-tender, soft Musculoskeletal: nl extremities to inspection, nl gait and stance Extremities: normal pulses Neurological: SCHOOL PHOTOGRAPHS DETAILER II-XII intact, nl mental status, nl speech, nl strength Skin: nl turgor, No rash or lesions Lymph: nl lymph nodes Results Result Diagram: 10/10/16 0600 10/10/16 0600 Results 24 hrs Laboratory Tests Test 10/10/16 06:00 Anion Gap 15 Basophils # 0.0 Basophils % 0.1 Blood Urea Nitrogen 46 H Calcium Level 10.2 Carbon Dioxide Level 25 Chloride Level 113 H Creatinine 1.26 H Eosinophils # 0.1 Eosinophils % 0.8 Glucose Level 98 Hematocrit 24.1 L Hemoglobin 7.1 L Lymphocytes # 0.6 L Lymphocytes % 3.6 L Magnesium Level 1.8 Mean Corpuscular Hemoglobin 29.1 Mean Corpuscular Hemoglobin Concent 29.5 L Mean Corpuscular Volume 98.8 Mean Platelet Volume 10.5 H Monocytes # 1.1 H Monocytes % 6.0 Neutrophils # 15.6 H Neutrophils % 88.4 H Nucleated Red Blood Cells # 0.0 Nucleated Red Blood Cells % 0.0 Phosphorus Level 3.9 Platelet Count 293 Potassium Level 3.8 Red Blood Count 2.44 L Red Cell Distribution Width 16.3 H Sodium Level 149 H White Blood Count 17.6 H Medications Medications Current Medications Acetaminophen (Tylenol Liquid) 650 mg Q6 PRN GTB PAIN AND OR ELEVATED TEMP Last administered on 10/09/16 12:37; Admin Dose 650 MG; Start 09/30/16 at 18:00 Eye Lubricant (Artificial Tears Oph) 2 drop HS BOTH EYES Last administered on 20:45; Admin Dose 2 DROP; Start 09/30/16 at 21:00 Polyethylene Glycol (Miralax) 17 gm BID GTB Last administered on 10/03/16 20: 54; Admin Dose 17 GM; Start 09/30/16 at 21:00; Status Future Hold Zolpidem Tartrate (Ambien) 5 mg HS PRN PO INSOMNIA; Start 09/30/16 at 18:00 Senna (Senokot (Ped)) 5 ml HS GTB Last administered on 10/03/16 20:54; Admin Dose 5 ML; Start 09/30/16 at 21:00; Status Future Hold Bacitracin (Bacitracin Oint (Ud)) 1 applic BID TOP Last administered on 09:52; Admin Dose 1 APPLIC; Start 09/30/16 at 21:00 Doxazosin Mesylate (Cardura) 1 mg HS PO ; Start 09/30/16 at 21:00; Status Future Hold Ferrous Sulfate (Feosol Liquid Cup) 300 mg BID GTB Last administered on 09:50; Admin Dose 300 MG; Start 09/30/16 at 21:00 Fluconazole (Diflucan) 100 mg DAILY GTB Last administered on 10/10/16 09:50; Admin Dose 100 MG; Start 10/01/16 at 09:00 Hypromellose 1 drop 1 drop Q6H PRN BOTH EYES IRRITATION Last administered on 16:30; Admin Dose 1 DROP; Start 09/30/16 at 20:00 Linezolid (Zyvox 600mg/D5W (Pmx)) 300 ml @ 300 mls/hr Q12 IVPB Last administered on 10/10/16 09:51; Admin Dose 300 MLS/HR; Start 10/01/16 at 21:00 Acetaminophen (Tylenol Liquid) 650 mg Q4H PRN GTB FEVER/PAIN; Start 10/03/16 at 04:00 Ascorbic Acid (Vitamin C) 500 mg BID GTB Last administered on 10/10/16 09:50; Admin Dose 500 MG; Start 10/03/16 at 21:00 Multivitamins (Thera-Plus) 5 ml DAILY GTB Last administered on 10/10/16 09:51 ; Admin Dose 5 ML; Start 10/04/16 at 09:00 Tramadol HCl 75 mg 75 mg Q6H PRN GTB PAIN Last administered on 10/10/16 06:11 ; Admin Dose 75 MG; Start 10/04/16 at 12:00 Meropenem (Merrem 500 Mg/ 100 ml (Pmx)) 100 ml @ 200 mls/hr Q12 IVPB Last administered on 10/10/16 09:51; Admin Dose 200 MLS/HR; Start 10/05/16 at 21:00 Sodium Hypochlorite (Dakin'S (1/4 Strength)) 1 applic DAILY IRR Last administered on 10/10/16 09:52; Admin Dose 1 APPLIC; Start 10/05/16 at 15:30 Hydrocortisone (Hydrocortisone 0.5% Oint) 1 applic BID PRN TOP ITCHING; Start 10/07/16 at 08:00 Bacitracin/ Polymyxin B Sulfate (Ak-Poly-Jaun Oph Oint) 1 applic Q12 BOTH EYES Last administered on 10/10/16 09:51; Admin Dose 1 APPLIC; Start 10/08/16 at 16: 30 CHELE CASE MD Oct 10, 2016 16:44
--- NOTE | 2016-10-10 18:33 | PN ---
DATE: 10/10/2016 CARDIOLOGY FOLLOWUP SUBJECTIVE: No new cardiac events. The patient remains nonverbal. Discussed with the staff. MEDICATIONS: Reviewed as per medical reconciliation, personally reviewed. PHYSICAL EXAMINATION: VITAL SIGNS: Temperature 97.9, heart rate of 94, blood pressure of 119/72, respiratory rate of 32. HEENT: Normocephalic, atraumatic. Eyes are closed. CARDIOVASCULAR: Regular rate and rhythm, systolic murmur. PULMONARY: With no wheezes, mild rhonchi at the base. GASTROINTESTINAL: Soft, status post PEG placement. EXTREMITIES: Positive ankle edema. NEUROLOGIC: No response to verbal stimuli. PSYCHIATRIC: Appears to be calm. LABORATORY: WBC of 18.6, hemoglobin 7.1, platelets 293. Sodium 149, potassium 3.8, BUN of 46, crea tinine 1.26, glucose of 98. Mag is 1.8. ASSESSMENT AND PLAN: 1. Sepsis. 2. Status post gastrointestinal bleed. 3. Severe anemia. 4. Hypoxemic respiratory failure. 5. History of tongue cancer with possible metastasis to the pelvic. 6. Parkinson's disease. 7. History of heart failure. 8. Sinus tachycardia. 9. Hypernatremia. RECOMMENDATIONS: Electrolytes will be managed as per renal. Free water flushes have been ordered. Antibiotic is managed as per ID. Continue to monitor ICU. Transfusion p.r.n. Long-term prognosis is very poor. Dictated By: KATIE BURR/CHELSI Conf#: [id number] DID#: [id number]
[2016-10-10] MEDS: ARTIFICIAL TEARS 15 ML OPH BOTH EYES SCH (20:42)
[2016-10-11] VITALS (27 sets, daily range): BP systolic 114–150; BP diastolic 66–98; PULSE 86–103; RESP 16–33
[2016-10-11] MEDS: LEVALBUTEROL (NEB) 0.63 MG/3 ML AMP HHN SCH ×4 (01:50→20:17)
[2016-10-11] MEDS ORDERED: FUROSEMIDE 40 MG INJ IV ONE ×2 (05:00→08:00)
[2016-10-11 05:43] LABS: ADD SCAN DIFF NO
[2016-10-11 05:47] LABS: ABNORMAL IP MESSAGE 1; BASOPHILS % 0.1 % (0.0-2.0); EOSINOPHILS # 0.1 10^3/ul (0.0-0.5); EOSINOPHILS % 0.5 % (0.0-7.0); HEMATOCRIT 31.2 % (42.0-52.0); HEMOGLOBIN 9.7 g/dl (14.0-18.0); LYMPHOCYTES # 0.5 10^3/ul (0.8-2.9); LYMPHOCYTES % 2.9 % (15.0-51.0); MEAN CORPUSCULAR HEMOGLOBIN 29.9 pg (29.0-33.0); MEAN CORPUSCULAR HGB CONC 31.1 g/dl (32.0-37.0); MEAN CORPUSCULAR VOLUME 96.3 fl (82.0-101.0); MEAN PLATELET VOLUME 10.5 fl (7.4-10.4); MONOCYTE # 1.1 10^3/ul (0.3-0.9); MONOCYTES % 6.7 % (0.0-11.0); NEUTROPHILS % 88.4 % (39.0-77.0); PLATELET COUNT 270 10^3/UL (140-415); RED BLOOD COUNT 3.24 10^6/ul (4.70-6.10); RED CELL DISTRIBUTION WIDTH 16.5 % (11.5-14.5)
[2016-10-11 05:59] LABS: POTASSIUM 3.7 mmol/L (3.5-5.1)
[2016-10-11 06:01] LABS: CREATININE 1.36 mg/dl (0.61-1.24)
[2016-10-11 06:03] LABS: CALCIUM 10.5 mg/dl (8.4-10.2); PHOSPHORUS 4.8 mg/dl (2.5-4.9)
--- NOTE | 2016-10-11 08:51 | PN ---
DATE: 10/11/2016 SUBJECTIVE: The patient received 2 units of PRBCs yesterday, tolerated well without any complicatio ns. The patient's blood pressures improved. Still remains tachypneic, obtunded. No significant ch yahir. No other acute events noted. No hemoptysis, hematemesis or hematochezia. OBJECTIVE: VITAL SIGNS: Blood pressure is 135/84, respiration 21, pulse 94, temperature 98.6. I's AND O'S: The patient had 4.3 L in and 980 out. HEENT: Head is normocephalic. NECK: Supple. HEART: Tachycardic. LUNGS: Show diminished breath sounds at base. Positive rhonchi. ABDOMEN: Soft, nontender to palpation. Positive PEG. EXAM. Positive suprapubic catheter. EXTREMITIES: Negative for clubbing, cyanosis. Positive edema. DERMATOLOGIC: No rashes. MUSCULOSKELETAL: No joint effusions. NEUROLOGIC: No change in exam. MEDICATIONS: The patient's medications have been reviewed. LABORATORY DATA: Shows white count 17.0, hemoglobin 9.7, hematocrit 31.2, platelet count 270. Sodi um 148, potassium 3.7, BUN 51, creatinine 1.36, calcium 10.5. ASSESSMENT AND PLAN: 1. Severe sepsis: Etiology secondary decubitus wound, UTI. The patient is status post debridement of decubitus wound. Cultures are pending. Continue current broad spectrum antibiotics. Follow up with Infectious Disease. 2. Leukocytosis: Likely secondary to underlying sepsis. Continue to monitor. 3. Acute lower gastrointestinal bleed: Etiology may be secondary to radiation proctitis, given pre vious history of prostate cancer. The patient's bleeding has stopped. Will continue to hold antico agulation. The patient is status post 2 units PRBC with appropriate response. Will continue to mon itor. 4. Acute hypoxemic respiratory failure secondary to sepsis: Continue current treatment plan, nebul izer, supplemental oxygen. 5. History of tongue cancer with probable metastases to pelvis: The patient is status post previou s radiation therapy, not a chemotherapy candidate at this time. 6. Dysphagia: Status PEG tube feeding. 7. Decubitus wound: Continue wound care. Status post debridement. 8. Parkinson disease/neurogenic disorder: Continue current treatment plan. 9. Diastolic heart failure: Continue medical management. Will give 1 dose of diuretics, Lasix 40 mg IV x1. 10. Prostate cancer status post transurethral resection of the prostate: Patient has suprapubic c atheter with possible leak. We will place a Urology consult with Dr. Kimbrough for evaluation. 11. Right-sided hydronephrosis secondary to pelvic mass: Continue to monitor. 12. Acute encephalopathy: No change. 13. Hypernatremia: Improved. Continue free water flushes. 14. Nonoliguric acute kidney injury on top of chronic kidney disease: Etiology of acute kidney inj ury secondary to acute tubular necrosis. Renal function has been fluctuating but overall stable. C ontinue supportive care, renally dose all meds, avoid nephrotoxins, monitor renal function closely o n diuretic therapy. 15. Gastrointestinal and deep venous thrombosis prophylaxis: Continue proton pump inhibitor and se quential leg squeezers. DISPOSITION: The patient's overall prognosis is poor. Patient is FULL CODE per 's request. Dictated By: JAX ANDRADE/CHELSI Conf#: [id number] DID#: [id number]
--- NOTE | 2016-10-11 09:37 | RADRPT ---
PROCEDURE: XR Chest. CLINICAL INDICATION: Shortness of breath. TECHNIQUE: Single frontal view. COMPARISON: None. FINDINGS: The lungs are clear. The heart size is normal. There is no pleural effusion or pneumothorax. There are multiple old healed superior lateral right rib fractures. There is also deformity of the right acromioclavicular joint consistent with prior trauma. IMPRESSION: 1. Clear lungs. 2. Prior right chest and shoulder trauma with old healed fractures. 3. Otherwise unremarkable study. RPTAT: QQ .Quan Olvera MD, MD Date Time Electronically viewed and signed by .Quan Olvera MD, on 10/11/2016 09:37 .R/
[2016-10-11] MEDS: FERROUS SULFATE 60 MG/ML 5ML CUP GTB SCH ×2 (09:45→20:24)
[2016-10-11] MEDS: MULTIVITAMINS 5 ML CUP GTB SCH (09:45)
[2016-10-11] MEDS: ARTIFICIAL TEARS 15 ML OPH BOTH EYES SCH (09:45)
[2016-10-11] MEDS: ASCORBIC ACID 500 MG TAB GTB SCH ×2 (09:45→20:23)
[2016-10-11] MEDS: FLUCONAZOLE 100 MG TAB GTB SCH (09:45)
[2016-10-11] MEDS: BACITRACIN/POLYMYX 3.5 GM OPH OINT BOTH EYES SCH ×2 (09:46→20:24)
[2016-10-11] MEDS: BACITRACIN 0.9 GM OINT TOP SCH ×2 (09:54→20:29)
[2016-10-11] MEDS: SODIUM HYPOCHLORITE 0.125% 473 ML BTL IRR SCH (09:54)
[2016-10-11] MEDS: LINEZOLID 600 MG/D5W (PMX) 300 ML IVPB SCH ×2 (09:56→21:10)
[2016-10-11] MEDS: MEROPENEM 500 MG/100 ML (PMX) 100 ML IVPB SCH ×2 (09:56→20:24)
--- NOTE | 2016-10-11 09:56 | CONS ---
Date/Time of Note Date/Time of Note DATE: 10/11/16 TIME: 09:53 Assessment/Plan Assessment/Plan Additional Assessment/Plan Assessment and recommendations; 1. Patient admitted for sepsis and hypotension as well as pneumonia with significant clinical improvement. 2. Remote history of tongue cancer status post surgery and radiation. 3. Prior history of tracheostomy. 4. Advanced Parkinson's disease. 5. History of sacral ulcers. 6. Severe COPD. 7. Renal insufficiency. 8. History of prostate cancer. Continue current treatment. Patient was transferred to the medical floor. Prognosis is extremely poor. Consultation Date/Type/Reason Admit Date/Time Sep 30, 2016 at 17:03 Type of Consultation: Pulmonary/critical care 24 HR Interval Summary Free Text/Dictation Patient condition remains unchanged. Remains essentially unresponsive. Has remained hemodynamically stable. General examination; elderly male, currently in no distress. Awake but unresponsive. Exam/Review of Systems Vital Signs Vitals Vital Signs Date Time Temp Pulse Resp B/P Pulse Ox O2 Delivery O2 Flow Rate FiO2 10/11/16 08:07 100 2.0 10/11/16 08:00 92 10/11/16 07:58 24 Nasal Cannula 32 10/11/16 04:05 135/84 10/11/16 00:30 97.8 Intake and Output 10/10/16 10/10/16 10/11/16 15:00 23:00 07:00 Intake Total 1160 ml 2080 ml 1020 ml Output Total 405 ml 225 ml 300 ml Balance 755 ml 1855 ml 720 ml Exam HEENT examination; supple neck, no JVD. There is a well-healed tracheostomy scar. No neck masses. No thyromegaly. Pupils are small bilaterally. Chest examination; diminished breath sounds throughout. S1-S2 audible, no murmurs. Regular rhythm. Abdomen examination; scaphoid, nondistended. No organomegaly. G-tube in place. Bowel sounds audible. Next Extremity examination; no peripheral edema. Patient has severe muscular wasting involving the entire body. LANDSCAPE PHOTOGRAPHER examination; patient remains unresponsive. Back examination: reveals ulcerations involving the sacral area. Results Result Diagram: 10/11/16 0445 10/11/16 0445 Results 24 hrs Laboratory Tests Test 10/11/16 04:45 Anion Gap 16 Basophils # 0.0 Basophils % 0.1 Blood Urea Nitrogen 51 H Calcium Level 10.5 H Carbon Dioxide Level 25 Chloride Level 111 H Creatinine 1.36 H Eosinophils # 0.1 Eosinophils % 0.5 Glucose Level 90 Hematocrit 31.2 #L Hemoglobin 9.7 #L Lymphocytes # 0.5 L Lymphocytes % 2.9 L Magnesium Level 2.0 Mean Corpuscular Hemoglobin 29.9 Mean Corpuscular Hemoglobin Concent 31.1 L Mean Corpuscular Volume 96.3 Mean Platelet Volume 10.5 H Monocytes # 1.1 H Monocytes % 6.7 Neutrophils # 15.0 H Neutrophils % 88.4 H Nucleated Red Blood Cells # 0.0 Nucleated Red Blood Cells % 0.0 Phosphorus Level 4.8 Platelet Count 270 Potassium Level 3.7 Red Blood Count 3.24 #L Red Cell Distribution Width 16.5 H Sodium Level 148 H White Blood Count 17.0 H Medications Medications Current Medications Acetaminophen (Tylenol Liquid) 650 mg Q6 PRN GTB PAIN AND OR ELEVATED TEMP Last administered on 10/09/16 12:37; Admin Dose 650 MG; Start 09/30/16 at 18:00 Eye Lubricant (Artificial Tears Oph) 2 drop HS BOTH EYES Last administered on 09:45; Admin Dose 2 DROP; Start 09/30/16 at 21:00 Zolpidem Tartrate (Ambien) 5 mg HS PRN PO INSOMNIA; Start 09/30/16 at 18:00 Bacitracin (Bacitracin Oint (Ud)) 1 applic BID TOP Last administered on 20:45; Admin Dose 1 APPLIC; Start 09/30/16 at 21:00 Ferrous Sulfate (Feosol Liquid Cup) 300 mg BID GTB Last administered on 09:45; Admin Dose 300 MG; Start 09/30/16 at 21:00 Fluconazole (Diflucan) 100 mg DAILY GTB Last administered on 10/11/16 09:45; Admin Dose 100 MG; Start 10/01/16 at 09:00 Hypromellose 1 drop 1 drop Q6H PRN BOTH EYES IRRITATION Last administered on 16:30; Admin Dose 1 DROP; Start 09/30/16 at 20:00 Linezolid (Zyvox 600mg/D5W (Pmx)) 300 ml @ 300 mls/hr Q12 IVPB Last administered on 10/10/16 22:00; Admin Dose 300 MLS/HR; Start 10/01/16 at 21:00 Acetaminophen (Tylenol Liquid) 650 mg Q4H PRN GTB FEVER/PAIN; Start 10/03/16 at 04:00 Ascorbic Acid (Vitamin C) 500 mg BID GTB Last administered on 10/11/16 09:45; Admin Dose 500 MG; Start 10/03/16 at 21:00 Multivitamins (Thera-Plus) 5 ml DAILY GTB Last administered on 10/11/16 09:45 ; Admin Dose 5 ML; Start 10/04/16 at 09:00 Tramadol HCl 75 mg 75 mg Q6H PRN GTB PAIN Last administered on 10/10/16 21:28 ; Admin Dose 75 MG; Start 10/04/16 at 12:00 Meropenem (Merrem 500 Mg/ 100 ml (Pmx)) 100 ml @ 200 mls/hr Q12 IVPB Last administered on 10/10/16 20:34; Admin Dose 200 MLS/HR; Start 10/05/16 at 21:00 Sodium Hypochlorite (Dakin'S (1/4 Strength)) 1 applic DAILY IRR Last administered on 10/10/16 09:52; Admin Dose 1 APPLIC; Start 10/05/16 at 15:30 Hydrocortisone (Hydrocortisone 0.5% Oint) 1 applic BID PRN TOP ITCHING; Start 10/07/16 at 08:00 Bacitracin/ Polymyxin B Sulfate (Ak-Poly-Jaun Oph Oint) 1 applic Q12 BOTH EYES Last administered on 10/11/16 09:46; Admin Dose 1 APPLIC; Start 10/08/16 at 16: 30 WERNER CHURCH Oct 11, 2016 09:56
--- NOTE | 2016-10-11 11:16 | CONS ---
Date/Time of Note Date/Time of Note DATE: 10/11/16 TIME: 11:15 Assessment/Plan Assessment/Plan Additional Assessment/Plan Additional Assessment/Plan 1. Rectal bleeding, mostly from radiation proctitis for prostate cancer, rule out also mass in the pelvis eroding into the rectum. 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 Dysphagia, status post gastrostomy tube. 3. Parkinson disease and neurodegenerative disorder. 4. Anemia, chronic. He had multiple transfusions in the past. 5. History of prostate cancer for which he had transurethral resection of prostate, radiation and chemotherapy a few years ago. 6. Tongue cancer for which he had treatment 13 to 14 years ago. 7. Chronic neurogenic bladder. 8. Right-sided hydronephrosis. 9. Hyponatremia. 10. Renal insufficiency. 11. Severe sepsis, most probably from decubitus ulcer infection. Plan monitor H&H,which is stable continue antibiotics ppi no blood thinner debridement as per surgeon continue present care Consultation Date/Type/Reason Admit Date/Time Sep 30, 2016 at 17:03 Initial Consult Date 10/05/16 Type of Consultation: Pulmonary/critical care 24 HR Interval Summary Subjective hx not possible: pt non-verbal, pt critical Constitutional: improved Exam/Review of Systems Vital Signs Vitals Vital Signs Date Time Temp Pulse Resp B/P Pulse Ox O2 Delivery O2 Flow Rate FiO2 10/11/16 10:42 99 29 88 Nasal Cannula 3.0 10/11/16 07:58 32 10/11/16 04:05 135/84 10/11/16 00:30 97.8 Intake and Output 10/10/16 10/10/16 10/11/16 14:59 22:59 06:59 Intake Total 1160 ml 1780 ml 1390 ml Output Total 455 ml 225 ml 300 ml Balance 705 ml 1555 ml 1090 ml Exam Constitutional: alert, oriented, well developed Psych: nl mood/affect, no complaints Head: atraumatic, normocephalic Eyes: EOMI, PERRL, nl conjunctiva, nl lids, nl sclera ENMT: nl external ears & nose, nl lips & teeth, nl nasal mucosa & septum Neck: non-tender, supple Respiratory: clear to auscultation, normal air movement Cardiovascular: nl pulses, regular rate and rhythm Gastrointestinal: nl liver, spleen, non-tender, soft Musculoskeletal: nl extremities to inspection, nl gait and stance Extremities: normal pulses Neurological: 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 intact, nl mental status, nl speech, nl strength Skin: nl turgor, No rash or lesions Lymph: nl lymph nodes Results Result Diagram: 10/11/165 10/11/165 Results 24 hrs Laboratory Tests Test 10/11/16 04:45 Anion Gap 16 Basophils # 0.0 Basophils % 0.1 Blood Urea Nitrogen 51 H Calcium Level 10.5 H Carbon Dioxide Level 25 Chloride Level 111 H Creatinine 1.36 H Eosinophils # 0.1 Eosinophils % 0.5 Glucose Level 90 Hematocrit 31.2 #L Hemoglobin 9.7 #L Lymphocytes # 0.5 L Lymphocytes % 2.9 L Magnesium Level 2.0 Mean Corpuscular Hemoglobin 29.9 Mean Corpuscular Hemoglobin Concent 31.1 L Mean Corpuscular Volume 96.3 Mean Platelet Volume 10.5 H Monocytes # 1.1 H Monocytes % 6.7 Neutrophils # 15.0 H Neutrophils % 88.4 H Nucleated Red Blood Cells # 0.0 Nucleated Red Blood Cells % 0.0 Phosphorus Level 4.8 Platelet Count 270 Potassium Level 3.7 Red Blood Count 3.24 #L Red Cell Distribution Width 16.5 H Sodium Level 148 H White Blood Count 17.0 H Medications Medications Current Medications Acetaminophen (Tylenol Liquid) 650 mg Q6 PRN GTB PAIN AND OR ELEVATED TEMP Last administered on 10/09/16 12:37; Admin Dose 650 MG; Start 09/30/16 at 18:00 Eye Lubricant (Artificial Tears Oph) 2 drop HS BOTH EYES Last administered on 09:45; Admin Dose 2 DROP; Start 09/30/16 at 21:00 Zolpidem Tartrate (Ambien) 5 mg HS PRN PO INSOMNIA; Start 09/30/16 at 18:00 Bacitracin (Bacitracin Oint (Ud)) 1 applic BID TOP Last administered on 09:54; Admin Dose 1 APPLIC; Start 09/30/16 at 21:00 Ferrous Sulfate (Feosol Liquid Cup) 300 mg BID GTB Last administered on 09:45; Admin Dose 300 MG; Start 09/30/16 at 21:00 Fluconazole (Diflucan) 100 mg DAILY GTB Last administered on 10/11/16 09:45; Admin Dose 100 MG; Start 10/01/16 at 09:00 Hypromellose 1 drop 1 drop Q6H PRN BOTH EYES IRRITATION Last administered on 16:30; Admin Dose 1 DROP; Start 09/30/16 at 20:00 Linezolid (Zyvox 600mg/D5W (Pmx)) 300 ml @ 300 mls/hr Q12 IVPB Last administered on 10/11/16 09:56; Admin Dose 300 MLS/HR; Start 10/01/16 at 21:00 Acetaminophen (Tylenol Liquid) 650 mg Q4H PRN GTB FEVER/PAIN; Start 10/03/16 at 04:00 Ascorbic Acid (Vitamin C) 500 mg BID GTB Last administered on 10/11/16 09:45; Admin Dose 500 MG; Start 10/03/16 at 21:00 Multivitamins (Thera-Plus) 5 ml DAILY GTB Last administered on 10/11/16 09:45 ; Admin Dose 5 ML; Start 10/04/16 at 09:00 Tramadol HCl 75 mg 75 mg Q6H PRN GTB PAIN Last administered on 10/10/16 21:28 ; Admin Dose 75 MG; Start 10/04/16 at 12:00 Meropenem (Merrem 500 Mg/ 100 ml (Pmx)) 100 ml @ 200 mls/hr Q12 IVPB Last administered on 10/11/16 09:56; Admin Dose 200 MLS/HR; Start 10/05/16 at 21:00 Sodium Hypochlorite (Dakin'S (1/4 Strength)) 1 applic DAILY IRR Last administered on 10/11/16 09:54; Admin Dose 1 APPLIC; Start 10/05/16 at 15:30 Hydrocortisone (Hydrocortisone 0.5% Oint) 1 applic BID PRN TOP ITCHING; Start 10/07/16 at 08:00 Bacitracin/ Polymyxin B Sulfate (Ak-Poly-Jaun Oph Oint) 1 applic Q12 BOTH EYES Last administered on 10/11/16 09:46; Admin Dose 1 APPLIC; Start 10/08/16 at 16: 30 CHELE CASE MD Oct 11, 2016 11:16
--- NOTE | 2016-10-11 12:01 | PN ---
DATE: 10/11/2016 SUBJECTIVE: No events overnight. No fevers. The patient is obtunded, noncommunicative, lying comf ortably in bed. INDWELLINGS: Suprapubic catheter, PICC line placed on 10/02/2016. DIAGNOSTICS: Chest x-ray this morning revealed clear lungs. ANTIMICROBIALS: 1. Meropenem. 2. Zyvox. 3. Fluconazole. PHYSICAL EXAMINATION: GENERAL: This is a fragile, chronically ill-appearing, elderly man who is lying comfortably in bed. HEENT: Head atraumatic, normocephalic. Sclerae anicteric. Buccal mucosa dry. NECK: Supple, trachea midline. CHEST: Rise symmetrical. Breath sounds with bilateral crackles. HEART: S1, S2. ABDOMEN: Soft, bowel sounds present. EXTREMITIES: With trace edema. ASSESSMENT: 1. Sepsis, status post shock. 2. Multiple infected wounds, status post debridement on 10/10/2016. 3. Significant secretion retention with ongoing aspiration. 4. Chronic obstructive pulmonary disease. 5. Pelvic mass, likely malignant. 6. History of tongue and prostate cancer, status post TURP, chemoradiation and placement of suprapu bic catheter. 7. Rectal bleeding, likely from radiation proctitis. PLAN: The patient remains unchanged, covered with broad-spectrum antibiotics. He is being seen by multiple consultants. He is a full code. We will continue him on current regimen. Dictated By: LUIS ARMANDO MIRANDA PARTS PROCESSOR for MICHAEL RIVAS/NTS Conf#: [id number] DID#: [id number]
--- NOTE | 2016-10-11 21:58 | PN ---
DATE: 10/11/2016 CARDIOLOGY FOLLOWUP SUBJECTIVE: The patient remains nonverbal. Blood pressure has remained stable. She is still in si nus rhythm, intermittently tachycardic though. Discussed with the staff. Rhythm strip was reviewed . MEDICATIONS: Reviewed as per medical reconciliation, personally reviewed. PHYSICAL EXAMINATION: VITAL SIGNS: Temperature 98.4, heart rate of 93, blood pressure 114/72, respiratory rate of 29. HEENT: Normocephalic, atraumatic. On oxygen. Eyes: Pupils are equal. CARDIOVASCULAR: Regular rate and rhythm, systolic murmur. PULMONARY: with mild rhonchi, diffuse. GASTROINTESTINAL: Soft, nontender. EXTREMITIES: Positive for edema of lower extremities. NEUROLOGIC: Does not verbalize or respond to any questions. LABORATORY DATA: WBC of 17, hemoglobin 9.7, platelet 270. Sodium , potassium 3.87, BUN of 51, creatinine 0.36, glucose of 90. IMAGING: Chest x-ray from today shows clear lungs. ASSESSMENT AND PLAN: 1. Status post septic shock, currently blood pressure has improved. 2. Gastrointestinal bleed. 3. Severe anemia. 4. Hypoxemic respiratory failure. 5. History of tongue cancer with possible metastasis to pelvic. 6. Parkinson disease. 7. History of congestive heart failure/fluid overload. 8. Tachycardia. 9. Hypernatremia. 10. Electrolyte abnormalities. RECOMMENDATIONS: Antibiotic as per ID's recommendation. Free water managed as per renal. Continue with the ICU care. Continue to closely monitor him. group home prognosis is very poor. Dictated By: KATIE BURR/CHELSI Conf#: [id number] DID#: [id number] CC: JAX SLATER DO;*EndCC*
--- NOTE | 2016-10-11 23:39 | PN ---
Date/Time of Note Date/Time of Note DATE: 10/11/16 TIME: 23:37 Assessment/Plan Lines/Catheters IV Catheter Type (from [facility]): PICC Line Assessment/Plan Chief Complaint/Hosp Course 1. Decubitus ulceration with necrotic tissue s/p excisional debridement 10/10 -off loading -optimization of nutrition -vit c -local care 2. Sepsis, multifactorial -abx -supportive -wound care -pulmonary toilette -aspiration precautions 3. Dysphagia on tube feeds 4. Anemia -monitor 5. Pelvic mass hx of tongue and prostate cancer, currently with hydronephrosis -heme/onc -urology 6. Renal insufficiency -judicious fluid management 7. Diastolic heart failure -cardiac optimization -judicious fluid management 8. Hypoxemic respiratory failure with advanced COPD and aspiration PNAs -pulmonary toilette -aspiration precautions 9. Parkinson disease/neurodegenerative disorder with dementia -medical optimization Thank you, Problems: Subjective 24 Hr Interval Summary s/p Excisional debridement 10/10. Leukocytosis. No f/c. No cough. No sz. No rash. Wounds. Min sob. No cp. No vomiting. Bowel function. No bleeding. No bloating. Exam/Review of Systems Vital Signs Vitals Vital Signs Date Time Temp Pulse Resp B/P Pulse Ox O2 Delivery O2 Flow Rate FiO2 10/11/16 22:45 93 10/11/16 22:02 3.0 10/11/16 22:00 32 129/69 100 Nasal Cannula 10/11/16 20:00 98.2 10/11/16 12:10 52 Intake and Output 10/10/16 10/10/16 10/11/16 15:00 23:00 07:00 Intake Total 1160 ml 2080 ml 1020 ml Output Total 405 ml 225 ml 300 ml Balance 755 ml 1855 ml 720 ml Exam Free Text/Dictation Constitutional: distress, No oriented Psych: anxiety, No nl mood/affect Head: normocephalic Eyes: EOMI, PERRL, nl conjunctiva, No icteric ENMT: nl external ears & nose, No mucosa pink and moist Neck: jvd, No non-tender, No supple Respiratory: No congested cough, No normal air movement Cardiovascular: No edema, No regular rate and rhythm Gastrointestinal: non-tender, soft, No rebound or guarding Musculoskeletal: No nl extremities to inspection, No nl gait and stance Extremities: No calf tenderness, No cyanosis Neurological: No nl mental status, No nl speech, No nl strength Skin: rash or lesions (decubitus ulcers with necrotic debris), No diaphoresis Lymph: nontender Results Result Diagram: 10/11/16 0445 10/11/16 0445 CHELSY CAIN MD Oct 11, 2016 23:39
[2016-10-12] VITALS (11 sets, daily range): BP systolic 120–166; BP diastolic 73–93; PULSE 85–98; RESP 20–86
[2016-10-12] MEDS: traMADol 50 MG TAB GTB PRN ×3 (00:33→17:49)
[2016-10-12] MEDS: LEVALBUTEROL (NEB) 0.63 MG/3 ML AMP HHN SCH ×4 (01:35→19:46)
[2016-10-12 08:13] LABS: ADD SCAN DIFF NO
[2016-10-12 08:34] LABS: POTASSIUM 3.5 mmol/L (3.5-5.1)
[2016-10-12 08:37] LABS: CREATININE 1.49 mg/dl (0.61-1.24); PHOSPHORUS 5.2 mg/dl (2.5-4.9)
[2016-10-12 08:38] LABS: ABNORMAL IP MESSAGE 1; BASOPHILS % 0.1 % (0.0-2.0); CALCIUM 10.2 mg/dl (8.4-10.2); EOSINOPHILS # 0.1 10^3/ul (0.0-0.5); EOSINOPHILS % 0.3 % (0.0-7.0); HEMATOCRIT 31.6 % (42.0-52.0); HEMOGLOBIN 9.7 g/dl (14.0-18.0); LYMPHOCYTES # 0.4 10^3/ul (0.8-2.9); LYMPHOCYTES % 2.4 % (15.0-51.0); MAGNESIUM 2.1 mg/dl (1.7-2.5); MEAN CORPUSCULAR HEMOGLOBIN 29.1 pg (29.0-33.0); MEAN CORPUSCULAR HGB CONC 30.7 g/dl (32.0-37.0); MEAN CORPUSCULAR VOLUME 94.9 fl (82.0-101.0); MEAN PLATELET VOLUME 10.6 fl (7.4-10.4); MONOCYTE # 0.9 10^3/ul (0.3-0.9); MONOCYTES % 5.7 % (0.0-11.0); NEUTROPHIL # 13.7 10^3/ul (1.6-7.5); NEUTROPHILS % 90.3 % (39.0-77.0); PLATELET COUNT 270 10^3/UL (140-415); RED BLOOD COUNT 3.33 10^6/ul (4.70-6.10); RED CELL DISTRIBUTION WIDTH 15.9 % (11.5-14.5); WHITE BLOOD COUNT 15.2 10^3/ul (4.8-10.8)
[2016-10-12] MEDS: FLUCONAZOLE 100 MG TAB GTB SCH (08:52)
[2016-10-12] MEDS: FERROUS SULFATE 60 MG/ML 5ML CUP GTB SCH ×2 (08:52→23:17)
[2016-10-12] MEDS: ASCORBIC ACID 500 MG TAB GTB SCH ×2 (08:52→23:18)
[2016-10-12] MEDS: MULTIVITAMINS 5 ML CUP GTB SCH (08:52)
[2016-10-12] MEDS: SODIUM HYPOCHLORITE 0.125% 473 ML BTL IRR SCH (08:53)
[2016-10-12] MEDS: BACITRACIN/POLYMYX 3.5 GM OPH OINT BOTH EYES SCH ×2 (08:53→23:22)
[2016-10-12] MEDS: MEROPENEM 500 MG/100 ML (PMX) 100 ML IVPB SCH ×2 (08:58→23:27)
[2016-10-12] MEDS: BACITRACIN 0.9 GM OINT TOP SCH ×2 (09:00→21:00)
[2016-10-12] MEDS: LINEZOLID 600 MG/D5W (PMX) 300 ML IVPB SCH ×2 (09:00→23:17)
--- NOTE | 2016-10-12 10:26 | PN ---
DATE: 10/12/2016 SUBJECTIVE: The patient was transferred from intensive care unit to telemetry. No acute events not ed overnight, no hemoptysis, hematemesis or hematochezia. OBJECTIVE: VITAL SIGNS: Blood pressure 166/93, respirations 20, pulse 92, temperature 98.1. HEENT: Head is normocephalic. NECK: Supple. HEART: Tachycardic. LUNGS: Show diminished breath sounds at base. ABDOMEN: Soft, nontender to palpation without rebound or guarding. EXTREMITIES: Negative for clubbing, cyanosis. Trace edema. DERMATOLOGIC: No rashes. MUSCULOSKELETAL: Positive decubitus wound. NEUROLOGIC: No change in exam. MEDICATIONS: Reviewed. LABORATORY DATA: Sodium 149, potassium 3.5, chloride 112, BUN and creatinine pending. CBC is curre ntly pending. ASSESSMENT AND PLAN: 1. Severe sepsis secondary decubitus wound, UTI. Continue current antibiotic regimen. Follow up w ith Infectious Disease. 2. Leukocytosis, likely secondary to underlying sepsis. Continue to monitor. 3. Acute lower gastrointestinal bleed. The etiology is possibly secondary to radiation proctitis. The patient is status post blood transfusion. Hemoglobin levels have been stable. Continue to mon itor. 4. Acute hypoxemic respiratory failure secondary to sepsis. The patient is currently stable. Cont inue supplemental oxygen and nebulizer. 5. History of tongue cancer with mets of the pelvis. Continue to monitor. 6. Dysphagia, status post percutaneous endoscopic gastrostomy. Continue tube feeding. 7. Decubitus wound. Continue wound care. The patient is status post debridement. Follow up with general surgery for further recommendation. 8. Parkinson disease, neurogenic disorder. Continue current treatment plan. 8. Diastolic heart failure. The patient is status post Lasix. Continue intermittent diuretics as needed. 9. Breast cancer status post TURP, status post suprapubic catheter with possible leak. We will bettye ce a urology consult with Dr. Kimbrough for evaluation. Continue to monitor. 10. Right-sided hydronephrosis and a pelvic mass. Continue to monitor. 11. Acute encephalopathy. No change. 12. Hyponatremia. Continue free water flushes 300 mL q.4h. 13. Nonoliguric acute kidney injury on top of chronic kidney disease, etiology secondary to acute t ubular necrosis. Renal function has been fluctuating but overall stable. Continue current treatmen t plan, supportive care, renally dose dosed. Gastrointestinal and deep venous thrombosis prophylaxi s. Continue proton pump inhibitor and sequential leg squeezers. Dictated By: JAX ANDRADE/CHELSI Conf#: [id number] DID#: [id number]
--- NOTE | 2016-10-12 11:33 | PN ---
DATE: 10/12/2016 CARDIOLOGY FOLLOWUP SUBJECTIVE: Patient has been transferred out of ICU to telemetry. Remains nonverbal, not communica ting. Remains in sinus rhythm, sinus tachycardia. Rhythm strip was reviewed and discussed with the staff. MEDICATIONS: Reviewed as per medical reconciliation, personally reviewed. PHYSICAL EXAMINATION: VITAL SIGNS: Temperature 98.6, heart rate of 88, blood pressure 148/55, respiratory rate of 24. HEENT: Normocephalic, atraumatic. Thin gentleman. Eyes are open. CARDIOVASCULAR: Regular rate and rhythm. Systolic murmur. PULMONARY: With no wheezes heard anteriorly. GASTROINTESTINAL: Soft. No rebound. EXTREMITIES: With positive lower extremity edema. NEUROLOGIC: Does not answer questions or respond. ASSESSMENT AND PLAN: 1. Status post septic shock. Currently blood pressure has significantly improved. 2. Sinus tachycardia. 3. Status post gastrointestinal bleed and severe anemia. Follow up with GI recommendations. 4. Tongue cancer with possible metastasis to the pelvis. 5. Parkinson disease. 6. Severe encephalopathy. 7. Congestive heart failure/fluid overload secondary to diastolic dysfunction. 8. Tachycardia as above. 9. Electrolyte abnormalities with hypernatremia. RECOMMENDATIONS: Antibiotic is managed as per ID recommendation, will continue antibiotic. Electro lytes will be corrected as needed. We will monitor on telemetry. Dictated By: KATIE BURR/CHELSI Conf#: [id number] DID#: [id number] CC: JAX SLATER DO;*EndCC*
--- NOTE | 2016-10-12 15:03 | CONS ---
Date/Time of Note Date/Time of Note DATE: 10/12/16 TIME: 15:02 Assessment/Plan Assessment/Plan Chief Complaint/Hosp Course SUBJECTIVE: No events overnight. No fevers. The patient is obtunded, noncommunicative, lying comfortably in bed. INDWELLINGS: Suprapubic catheter, PICC line placed on 10/02/2016. ANTIMICROBIALS: 1. Meropenem. 2. Zyvox. 3. Fluconazole. PHYSICAL EXAMINATION: GENERAL: This is a fragile, chronically ill-appearing, elderly man who is lying comfortably in bed. HEENT: Head atraumatic, normocephalic. Sclerae anicteric. Buccal mucosa dry. NECK: Supple, trachea midline. CHEST: Rise symmetrical. Breath sounds with bilateral crackles. HEART: S1, S2. ABDOMEN: Soft, bowel sounds present. EXTREMITIES: With trace edema. ASSESSMENT: 1. Sepsis, status post shock. 2. Multiple infected wounds, status post debridement on 10/10/2016. 3. Significant secretion retention with ongoing aspiration. 4. Chronic obstructive pulmonary disease. 5. Pelvic mass, likely malignant. 6. History of tongue and prostate cancer, status post TURP, chemoradiation and placement of suprapubic catheter. 7. Rectal bleeding, likely from radiation proctitis. PLAN: The patient remains unchanged, covered with broad-spectrum antibiotics. He is being seen by multiple consultants. He is a full code. We will continue him on current regimen. Continue aggressive pulmonary toilet DW staff Problems: Consultation Date/Type/Reason Admit Date/Time Sep 30, 2016 at 17:03 Initial Consult Date 10/05/16 Type of Consultation: ID Exam/Review of Systems Vital Signs Vitals Vital Signs Date Time Temp Pulse Resp B/P Pulse Ox O2 Delivery O2 Flow Rate FiO2 10/12/16 14:08 98 28 98 Nasal Cannula 2.0 10/12/16 11:54 98.0 138/76 10/11/16 12:10 52 Intake and Output 10/11/16 10/11/16 10/12/16 15:00 23:00 07:00 Intake Total 960 ml 1190 ml 510 ml Output Total 45 ml 200 ml Balance 960 ml 1145 ml 310 ml Results Result Diagram: 10/12/16 0733 10/12/16 0733 Results 24 hrs Laboratory Tests Test 10/12/16 07:33 Anion Gap 15 Basophils # 0.0 Basophils % 0.1 Blood Urea Nitrogen 56 H Calcium Level 10.2 Carbon Dioxide Level 26 Chloride Level 112 H Creatinine 1.49 H Eosinophils # 0.1 Eosinophils % 0.3 Glucose Level 89 Hematocrit 31.6 L Hemoglobin 9.7 L Lymphocytes # 0.4 L Lymphocytes % 2.4 L Magnesium Level 2.1 Mean Corpuscular Hemoglobin 29.1 Mean Corpuscular Hemoglobin Concent 30.7 L Mean Corpuscular Volume 94.9 Mean Platelet Volume 10.6 H Monocytes # 0.9 Monocytes % 5.7 Neutrophils # 13.7 H Neutrophils % 90.3 H Nucleated Red Blood Cells # 0.0 Nucleated Red Blood Cells % 0.0 Phosphorus Level 5.2 H Platelet Count 270 Potassium Level 3.5 Red Blood Count 3.33 L Red Cell Distribution Width 15.9 H Sodium Level 149 H White Blood Count 15.2 H Medications Medications Current Medications Acetaminophen (Tylenol Liquid) 650 mg Q6 PRN GTB PAIN AND OR ELEVATED TEMP Last administered on 10/09/16 12:37; Admin Dose 650 MG; Start 09/30/16 at 18:00 Eye Lubricant (Artificial Tears Oph) 2 drop HS BOTH EYES Last administered on 09:45; Admin Dose 2 DROP; Start 09/30/16 at 21:00 Zolpidem Tartrate (Ambien) 5 mg HS PRN PO INSOMNIA; Start 09/30/16 at 18:00 Bacitracin (Bacitracin Oint (Ud)) 1 applic BID TOP Last administered on 20:29; Admin Dose 1 APPLIC; Start 09/30/16 at 21:00 Ferrous Sulfate (Feosol Liquid Cup) 300 mg BID GTB Last administered on 08:52; Admin Dose 300 MG; Start 09/30/16 at 21:00 Fluconazole (Diflucan) 100 mg DAILY GTB Last administered on 10/12/16 08:52; Admin Dose 100 MG; Start 10/01/16 at 09:00 Hypromellose 1 drop 1 drop Q6H PRN BOTH EYES IRRITATION Last administered on 16:30; Admin Dose 1 DROP; Start 09/30/16 at 20:00 Linezolid (Zyvox 600mg/D5W (Pmx)) 300 ml @ 300 mls/hr Q12 IVPB Last administered on 10/12/16 09:00; Admin Dose 300 MLS/HR; Start 10/01/16 at 21:00 Acetaminophen (Tylenol Liquid) 650 mg Q4H PRN GTB FEVER/PAIN; Start 10/03/16 at 04:00 Ascorbic Acid (Vitamin C) 500 mg BID GTB Last administered on 10/12/16 08:52; Admin Dose 500 MG; Start 10/03/16 at 21:00 Multivitamins (Thera-Plus) 5 ml DAILY GTB Last administered on 10/12/16 08:52; Admin Dose 5 ML; Start 10/04/16 at 09:00 Tramadol HCl 75 mg 75 mg Q6H PRN GTB PAIN Last administered on 10/12/16 08:52; Admin Dose 75 MG; Start 10/04/16 at 12:00 Meropenem (Merrem 500 Mg/ 100 ml (Pmx)) 100 ml @ 200 mls/hr Q12 IVPB Last administered on 10/12/16 08:58; Admin Dose 200 MLS/HR; Start 10/05/16 at 21:00 Sodium Hypochlorite (Dakin'S (1/4 Strength)) 1 applic DAILY IRR Last administered on 10/12/16 08:53; Admin Dose 1 APPLIC; Start 10/05/16 at 15:30 Hydrocortisone (Hydrocortisone 0.5% Oint) 1 applic BID PRN TOP ITCHING; Start 10/07/16 at 08:00 Bacitracin/ Polymyxin B Sulfate (Ak-Poly-Jaun Oph Oint) 1 applic Q12 BOTH EYES Last administered on 10/12/16 08:53; Admin Dose 1 APPLIC; Start 10/08/16 at 16: 30 LUIS ARMANDO MIRANDA NP Oct 12, 2016 15:03
--- NOTE | 2016-10-12 17:36 | CONS ---
Date/Time of Note Date/Time of Note DATE: 10/12/16 TIME: 17:34 Assessment/Plan Assessment/Plan Additional Assessment/Plan Additional Assessment/Plan 1. Rectal bleeding, mostly from radiation proctitis for prostate cancer, rule out also mass in the pelvis eroding into the rectum. This mass was told to the patient at 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 Dysphagia, status post gastrostomy tube. 3. Parkinson disease and neurodegenerative disorder. 4. Anemia, chronic. He had multiple transfusions in the past. 5. History of prostate cancer for which he had transurethral resection of prostate, radiation and chemotherapy a few years ago. 6. Tongue cancer for which he had treatment 13 to 14 years ago. 7. Chronic neurogenic bladder. 8. Right-sided hydronephrosis. 9. Hyponatremia. 10. Renal insufficiency. 11. Severe sepsis, most probably from decubitus ulcer infection. Plan monitor H&H,which is stable continue antibiotics ppi no blood thinner continue present care Consultation Date/Type/Reason Admit Date/Time Sep 30, 2016 at 17:03 Initial Consult Date 10/05/16 Type of Consultation: ID [id number] HR Interval Summary Free Text/Dictation no bleeding per rectum no abdominal pain Subjective hx not possible: pt non-verbal, pt critical Exam/Review of Systems Vital Signs Vitals Vital Signs Date Time Temp Pulse Resp B/P Pulse Ox O2 Delivery O2 Flow Rate FiO2 10/12/16 16:02 97 10/12/16 15:51 98.4 21 155/87 97 10/12/16 14:08 Nasal Cannula 2.0 10/11/16 12:10 52 Intake and Output 10/11/16 10/11/16 10/12/16 15:00 23:00 07:00 Intake Total 960 ml 1190 ml 510 ml Output Total 45 ml 200 ml Balance 960 ml 1145 ml 310 ml Exam Constitutional: non-verbal Neck: non-tender, supple Respiratory: diminished breath sounds Cardiovascular: nl pulses, regular rate and rhythm Gastrointestinal: nl liver, spleen, non-tender, soft Extremities: normal pulses Neurological: lethargic Results Result Diagram: 10/12/16 0733 10/12/16 0733 Results 24 hrs Laboratory Tests Test 10/12/16 07:33 Anion Gap 15 Basophils # 0.0 Basophils % 0.1 Blood Urea Nitrogen 56 H Calcium Level 10.2 Carbon Dioxide Level 26 Chloride Level 112 H Creatinine 1.49 H Eosinophils # 0.1 Eosinophils % 0.3 Glucose Level 89 Hematocrit 31.6 L Hemoglobin 9.7 L Lymphocytes # 0.4 L Lymphocytes % 2.4 L Magnesium Level 2.1 Mean Corpuscular Hemoglobin 29.1 Mean Corpuscular Hemoglobin Concent 30.7 L Mean Corpuscular Volume 94.9 Mean Platelet Volume 10.6 H Monocytes # 0.9 Monocytes % 5.7 Neutrophils # 13.7 H Neutrophils % 90.3 H Nucleated Red Blood Cells # 0.0 Nucleated Red Blood Cells % 0.0 Phosphorus Level 5.2 H Platelet Count 270 Potassium Level 3.5 Red Blood Count 3.33 L Red Cell Distribution Width 15.9 H Sodium Level 149 H White Blood Count 15.2 H Medications Medications Current Medications Acetaminophen (Tylenol Liquid) 650 mg Q6 PRN GTB PAIN AND OR ELEVATED TEMP Last administered on 10/09/16 12:37; Admin Dose 650 MG; Start 09/30/16 at 18:00 Eye Lubricant (Artificial Tears Oph) 2 drop HS BOTH EYES Last administered on 09:45; Admin Dose 2 DROP; Start 09/30/16 at 21:00 Zolpidem Tartrate (Ambien) 5 mg HS PRN PO INSOMNIA; Start 09/30/16 at 18:00 Bacitracin (Bacitracin Oint (Ud)) 1 applic BID TOP Last administered on 20:29; Admin Dose 1 APPLIC; Start 09/30/16 at 21:00 Ferrous Sulfate (Feosol Liquid Cup) 300 mg BID GTB Last administered on 08:52; Admin Dose 300 MG; Start 09/30/16 at 21:00 Fluconazole (Diflucan) 100 mg DAILY GTB Last administered on 10/12/16 08:52; Admin Dose 100 MG; Start 10/01/16 at 09:00 Hypromellose 1 drop 1 drop Q6H PRN BOTH EYES IRRITATION Last administered on 16:30; Admin Dose 1 DROP; Start 09/30/16 at 20:00 Linezolid (Zyvox 600mg/D5W (Pmx)) 300 ml @ 300 mls/hr Q12 IVPB Last administered on 10/12/16 09:00; Admin Dose 300 MLS/HR; Start 10/01/16 at 21:00 Acetaminophen (Tylenol Liquid) 650 mg Q4H PRN GTB FEVER/PAIN; Start 10/03/16 at 04:00 Ascorbic Acid (Vitamin C) 500 mg BID GTB Last administered on 10/12/16 08:52; Admin Dose 500 MG; Start 10/03/16 at 21:00 Multivitamins (Thera-Plus) 5 ml DAILY GTB Last administered on 10/12/16 08:52; Admin Dose 5 ML; Start 10/04/16 at 09:00 Tramadol HCl 75 mg 75 mg Q6H PRN GTB PAIN Last administered on 10/12/16 08:52; Admin Dose 75 MG; Start 10/04/16 at 12:00 Meropenem (Merrem 500 Mg/ 100 ml (Pmx)) 100 ml @ 200 mls/hr Q12 IVPB Last administered on 10/12/16 08:58; Admin Dose 200 MLS/HR; Start 10/05/16 at 21:00 Sodium Hypochlorite (Dakin'S (1/4 Strength)) 1 applic DAILY IRR Last administered on 10/12/16 08:53; Admin Dose 1 APPLIC; Start 10/05/16 at 15:30 Hydrocortisone (Hydrocortisone 0.5% Oint) 1 applic BID PRN TOP ITCHING; Start 10/07/16 at 08:00 Bacitracin/ Polymyxin B Sulfate (Ak-Poly-Jaun Oph Oint) 1 applic Q12 BOTH EYES Last administered on 10/12/16 08:53; Admin Dose 1 APPLIC; Start 10/08/16 at 16: 30 CHELE CASE MD Oct 12, 2016 17:36
[2016-10-12] MEDS: ARTIFICIAL TEARS 15 ML OPH BOTH EYES SCH (23:20)
[2016-10-13] VITALS (12 sets, daily range): BP systolic 129–157; BP diastolic 72–95; PULSE 80–106; RESP 18–22
[2016-10-13] MEDS: traMADol 50 MG TAB GTB PRN ×2 (00:17→23:04)
[2016-10-13] MEDS: LEVALBUTEROL (NEB) 0.63 MG/3 ML AMP HHN SCH ×4 (01:56→20:56)
[2016-10-13 06:37] LABS: ADD SCAN DIFF NO
[2016-10-13 06:50] LABS: BASOPHILS % 0.2 % (0.0-2.0); EOSINOPHILS # 0.1 10^3/ul (0.0-0.5); EOSINOPHILS % 0.3 % (0.0-7.0); HEMATOCRIT 31.2 % (42.0-52.0); HEMOGLOBIN 9.6 g/dl (14.0-18.0); LYMPHOCYTES # 0.8 10^3/ul (0.8-2.9); LYMPHOCYTES % 4.6 % (15.0-51.0); MEAN CORPUSCULAR HEMOGLOBIN 29.6 pg (29.0-33.0); MEAN CORPUSCULAR HGB CONC 30.8 g/dl (32.0-37.0); MEAN CORPUSCULAR VOLUME 96.3 fl (82.0-101.0); MEAN PLATELET VOLUME 10.8 fl (7.4-10.4); MONOCYTE # 0.9 10^3/ul (0.3-0.9); MONOCYTES % 5.1 % (0.0-11.0); NEUTROPHIL # 14.6 10^3/ul (1.6-7.5); NEUTROPHILS % 88.4 % (39.0-77.0); PLATELET COUNT 238 10^3/UL (140-415); POTASSIUM 3.4 mmol/L (3.5-5.1); RED BLOOD COUNT 3.24 10^6/ul (4.70-6.10); RED CELL DISTRIBUTION WIDTH 15.6 % (11.5-14.5); WHITE BLOOD COUNT 16.6 10^3/ul (4.8-10.8)
[2016-10-13 06:52] LABS: CREATININE 1.32 mg/dl (0.61-1.24)
[2016-10-13 06:53] LABS: PHOSPHORUS 4.5 mg/dl (2.5-4.9)
[2016-10-13 06:54] LABS: CALCIUM 9.6 mg/dl (8.4-10.2)
[2016-10-13] MEDS: BACITRACIN 0.9 GM OINT TOP SCH ×2 (09:00→20:16)
[2016-10-13] MEDS: SODIUM HYPOCHLORITE 0.125% 473 ML BTL IRR SCH (09:00)
[2016-10-13] MEDS ORDERED: POTASSIUM CHLORIDE 20 MEQ POWDER FOR ORAL SOLN PO ONE (09:00)
[2016-10-13] MEDS: BACITRACIN/POLYMYX 3.5 GM OPH OINT BOTH EYES SCH ×3 (09:00→20:13)
--- NOTE | 2016-10-13 09:24 | PN ---
DATE: 10/13/2016 SUBJECTIVE: The patient remains stable, critical, remains tachypneic, no other acute events noted. OBJECTIVE: VITAL SIGNS: Blood pressure is 129/72, respirations 20, pulse 99, temperature 97.1. HEENT: Head is normocephalic. NECK: Supple. HEART: Regular rate. LUNGS: Show diminished breath sounds at the base. ABDOMEN: Soft, nontender to palpation. No rebound or guarding. EXTREMITIES: Negative for clubbing, cyanosis, no edema. DERMATOLOGIC: No rashes. MUSCULOSKELETAL: No joint effusions. NEUROLOGIC: No change in exam. MEDICATIONS: The patient's medications have been reviewed. LABORATORY DATA: Shows sodium 148, potassium 3.4, BUN 33, creatinine 1.32. White count 16.6, hemog lobin 9.6, hematocrit 31.2, platelet count 238. ASSESSMENT AND PLAN: 1. Severe sepsis secondary to decubitus wound, urinary tract infection. Continue current antibioti c regimen. Follow up with Infectious Disease. 2. Leukocytosis, likely secondary to sepsis, improving. Continue to monitor. 3. Acute lower gastrointestinal bleed, etiology may be secondary to radiation proctitis. The patie nt is status post blood transfusion. Hemoglobin level is unstable, continue to monitor. 4. Acute hypoxemic respiratory failure secondary to sepsis. The patient is currently stable. Graciela nue supplemental oxygen, nebulized. 5. 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 Continue to monitor. 6. Dysphagia status post percutaneous endoscopic gastrostomy. Continue tube feeds. 7. Decubitus wound. Continue wound care. The patient is status post debridement. 8. Parkinson's disease, neurogenic disorder. Continue current treatment plan. 9. Diastolic heart failure. Continue intermittent diuretics as needed. 10. Prostate cancer status post TURP. The patient is status post suprapubic catheter. Continue to monitor. 11. Right-sided hydronephrosis, pelvic mass. Continue to monitor. 12. Acute encephalopathy. No change. 13. Hypernatremia. We will increase free water flushes 400 mL q.4h. 14. Nonoliguric acute kidney injury, etiology secondary to acute tubular necrosis. Renal function has been stable. Continue supportive care, renally dose all meds, avoid nephrotoxins. 15. Gastrointestinal and deep venous thrombosis prophylaxis. Continue proton pump inhibitor and se quential leg squeezers. Dictated By: JAX ANDRADE/CHELSI Conf#: [id number] DID#: [id number]
[2016-10-13] MEDS: MEROPENEM 500 MG/100 ML (PMX) 100 ML IVPB SCH ×2 (10:22→20:13)
[2016-10-13] MEDS: LINEZOLID 600 MG/D5W (PMX) 300 ML IVPB SCH ×2 (10:22→20:14)
[2016-10-13] MEDS: ASCORBIC ACID 500 MG TAB GTB SCH ×2 (10:23→19:45)
[2016-10-13] MEDS: FERROUS SULFATE 60 MG/ML 5ML CUP GTB SCH ×2 (10:23→19:45)
[2016-10-13] MEDS: FLUCONAZOLE 100 MG TAB GTB SCH (10:24)
[2016-10-13] MEDS: MULTIVITAMINS 5 ML CUP GTB SCH (10:24)
--- NOTE | 2016-10-13 10:44 | PN ---
DATE: 10/13/2016 SUBJECTIVE: The patient remains in sinus rhythm. Heart rate has been mostly stable, intermittently elevated. Patient remains nonverbal. MEDICATIONS: Reviewed. PHYSICAL EXAMINATION: VITAL SIGNS: Temperature 97.1, heart rate 98, blood pressure 120/70, respiratory rate of 24. HEENT: Normocephalic, atraumatic. CARDIOVASCULAR: Regular rate and rhythm, systolic murmur. PULMONARY: With no wheezes anteriorly, mild rhonchi. GASTROINTESTINAL: Soft, nontender. EXTREMITIES: Trivial edema. NEUROLOGIC: Does not answer questions. LABORATORY: WBC of 16.6, hemoglobin 9.6, platelets 238. Sodium 148, potassium 3.4, BUN of 53, crea tinine 1.32, glucose of 81. ASSESSMENT AND PLAN: 1. Hypoxemia respiratory failure. 2. Status post sepsis, currently improved. 3. Status post gastrointestinal bleed. 4. Congestive heart failure with diastolic dysfunction. 5. Sinus tachycardia, history of tongue cancer, status post surgery. RECOMMENDATIONS: We will continue with the current cardiac care. Antibiotic is managed as per inte rnal medicine. Continue to monitor on telemetry. Dictated By: KATIE DURÁN MD AV/CHELSI Conf#: [id number] DID#: [id number] CC: JAX SLATER DO;*EndCC*
--- NOTE | 2016-10-13 11:22 | CONS ---
Date/Time of Note Date/Time of Note DATE: 10/13/16 TIME: 11:21 Assessment/Plan Assessment/Plan Additional Assessment/Plan Additional Assessment/Plan Additional Assessment/Plan 1. Rectal bleeding, mostly from radiation proctitis for prostate cancer, rule out also mass in the pelvis eroding into the rectum. 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 Dysphagia, status post gastrostomy tube. 3. Parkinson disease and neurodegenerative disorder. 4. Anemia, chronic. He had multiple transfusions in the past. 5. History of prostate cancer for which he had transurethral resection of prostate, radiation and chemotherapy a few years ago. 6. Tongue cancer for which he had treatment 13 to 14 years ago. 7. Chronic neurogenic bladder. 8. Right-sided hydronephrosis. 9. Hyponatremia. 10. Renal insufficiency. 11. Severe sepsis, most probably from decubitus ulcer infection. 12 encephalopathy Plan monitor H&H,which is stable continue antibiotics ppi no blood thinner continue present care Consultation Date/Type/Reason Admit Date/Time Sep 30, 2016 at 17:03 Initial Consult Date 10/05/16 Type of Consultation: ID 24 HR Interval Summary Subjective hx not possible: pt non-verbal Exam/Review of Systems Vital Signs Vitals Vital Signs Date Time Temp Pulse Resp B/P Pulse Ox O2 Delivery O2 Flow Rate FiO2 10/13/16 09:12 99 10/13/16 08:04 24 99 Nasal Cannula 2.0 10/13/16 08:02 97.1 129/72 10/11/16 12:10 52 Intake and Output 10/12/16 10/12/16 10/13/16 15:00 23:00 07:00 Intake Total 1070 ml 1370 ml Output Total 1000 ml 2150 ml Balance 70 ml -780 ml Exam Constitutional: alert, oriented, well developed Psych: nl mood/affect, no complaints Head: atraumatic, normocephalic Eyes: EOMI, PERRL, nl conjunctiva, nl lids, nl sclera ENMT: nl external ears & nose, nl lips & teeth, nl nasal mucosa & septum Neck: non-tender, supple Respiratory: clear to auscultation, normal air movement Cardiovascular: nl pulses, regular rate and rhythm Gastrointestinal: nl liver, spleen, non-tender, soft Musculoskeletal: nl extremities to inspection, nl gait and stance Extremities: normal pulses Neurological: SHIRT HEMMER II-XII intact, nl mental status, nl speech, nl strength Skin: nl turgor, No rash or lesions Lymph: nl lymph nodes Results Result Diagram: 10/13/16 0530 10/13/16 0530 Results 24 hrs Laboratory Tests Test 10/13/16 05:30 Anion Gap 15 Basophils # 0.0 Basophils % 0.2 Blood Urea Nitrogen 53 H Calcium Level 9.6 Carbon Dioxide Level 27 Chloride Level 109 Creatinine 1.32 H Eosinophils # 0.1 Eosinophils % 0.3 Glucose Level 81 Hematocrit 31.2 L Hemoglobin 9.6 L Lymphocytes # 0.8 Lymphocytes % 4.6 L Magnesium Level 2.0 Mean Corpuscular Hemoglobin 29.6 Mean Corpuscular Hemoglobin Concent 30.8 L Mean Corpuscular Volume 96.3 Mean Platelet Volume 10.8 H Monocytes # 0.9 Monocytes % 5.1 Neutrophils # 14.6 H Neutrophils % 88.4 H Nucleated Red Blood Cells # 0.0 Nucleated Red Blood Cells % 0.0 Phosphorus Level 4.5 Platelet Count 238 Potassium Level 3.4 L Red Blood Count 3.24 L Red Cell Distribution Width 15.6 H Sodium Level 148 H White Blood Count 16.6 H Medications Medications Current Medications Acetaminophen (Tylenol Liquid) 650 mg Q6 PRN GTB PAIN AND OR ELEVATED TEMP Last administered on 10/09/16 12:37; Admin Dose 650 MG; Start 09/30/16 at 18:00 Eye Lubricant (Artificial Tears Oph) 2 drop HS BOTH EYES Last administered on 23:20; Admin Dose 2 DROP; Start 09/30/16 at 21:00 Zolpidem Tartrate (Ambien) 5 mg HS PRN PO INSOMNIA; Start 09/30/16 at 18:00 Bacitracin (Bacitracin Oint (Ud)) 1 applic BID TOP Last administered on 20:29; Admin Dose 1 APPLIC; Start 09/30/16 at 21:00 Ferrous Sulfate (Feosol Liquid Cup) 300 mg BID GTB Last administered on 10:23; Admin Dose 300 MG; Start 09/30/16 at 21:00 Fluconazole (Diflucan) 100 mg DAILY GTB Last administered on 10/13/16 10:24; Admin Dose 100 MG; Start 10/01/16 at 09:00 Hypromellose 1 drop 1 drop Q6H PRN BOTH EYES IRRITATION Last administered on 16:30; Admin Dose 1 DROP; Start 09/30/16 at 20:00 Linezolid (Zyvox 600mg/D5W (Pmx)) 300 ml @ 300 mls/hr Q12 IVPB Last administered on 10/13/16 10:22; Admin Dose 300 MLS/HR; Start 10/01/16 at 21:00 Acetaminophen (Tylenol Liquid) 650 mg Q4H PRN GTB FEVER/PAIN; Start 10/03/16 at 04:00 Ascorbic Acid (Vitamin C) 500 mg BID GTB Last administered on 10/13/16 10:23; Admin Dose 500 MG; Start 10/03/16 at 21:00 Multivitamins (Thera-Plus) 5 ml DAILY GTB Last administered on 10/13/16 10:24; Admin Dose 5 ML; Start 10/04/16 at 09:00 Tramadol HCl 75 mg 75 mg Q6H PRN GTB PAIN Last administered on 10/13/16 00:17; Admin Dose 75 MG; Start 10/04/16 at 12:00 Meropenem (Merrem 500 Mg/ 100 ml (Pmx)) 100 ml @ 200 mls/hr Q12 IVPB Last administered on 10/13/16 10:22; Admin Dose 200 MLS/HR; Start 10/05/16 at 21:00 Sodium Hypochlorite (Dakin'S (1/4 Strength)) 1 applic DAILY IRR Last administered on 10/12/16 08:53; Admin Dose 1 APPLIC; Start 10/05/16 at 15:30 Hydrocortisone (Hydrocortisone 0.5% Oint) 1 applic BID PRN TOP ITCHING; Start 10/07/16 at 08:00 Bacitracin/ Polymyxin B Sulfate (Ak-Poly-Jaun Oph Oint) 1 applic Q12 BOTH EYES Last administered on 10/12/16 23:22; Admin Dose 1 APPLIC; Start 10/08/16 at 16: 30 CHELE CASE MD Oct 13, 2016 11:22
--- NOTE | 2016-10-13 11:50 | CONS ---
Date/Time of Note Date/Time of Note DATE: 10/13/16 TIME: 11:49 Assessment/Plan Assessment/Plan Chief Complaint/Hosp Course SUBJECTIVE: No events overnight. No fevers. The patient is obtunded, noncommunicative, lying comfortably in bed. INDWELLINGS: Suprapubic catheter, PICC line placed on 10/02/2016. ANTIMICROBIALS: 1. Meropenem. 2. Zyvox. 3. Fluconazole. PHYSICAL EXAMINATION: GENERAL: This is a fragile, chronically ill-appearing, elderly man who is lying comfortably in bed. HEENT: Head atraumatic, normocephalic. Sclerae anicteric. Buccal mucosa dry. NECK: Supple, trachea midline. CHEST: Rise symmetrical. Breath sounds with bilateral crackles. HEART: S1, S2. ABDOMEN: Soft, bowel sounds present. EXTREMITIES: With trace edema. ASSESSMENT: 1. Sepsis, status post shock. 2. Multiple infected wounds, status post debridement on 10/10/2016. 3. Significant secretion retention with ongoing aspiration. 4. Chronic obstructive pulmonary disease. 5. Pelvic mass, likely malignant. 6. History of tongue and prostate cancer, status post TURP, chemoradiation and placement of suprapubic catheter. 7. Rectal bleeding, likely from radiation proctitis. PLAN: The patient remains unchanged, covered with broad-spectrum antibiotics. He is being seen by multiple consultants. He is a full code. We will continue him on current regimen. Continue aggressive pulmonary toilet DW staff Problems: Consultation Date/Type/Reason Admit Date/Time Sep 30, 2016 at 17:03 Initial Consult Date 10/05/16 Type of Consultation: ID Exam/Review of Systems Vital Signs Vitals Vital Signs Date Time Temp Pulse Resp B/P Pulse Ox O2 Delivery O2 Flow Rate FiO2 10/13/16 09:12 99 10/13/16 08:04 24 99 Nasal Cannula 2.0 10/13/16 08:02 97.1 129/72 10/11/16 12:10 52 Intake and Output 10/12/16 10/12/16 10/13/16 15:00 23:00 07:00 Intake Total 1070 ml 1370 ml Output Total 1000 ml 2150 ml Balance 70 ml -780 ml Results Result Diagram: 10/13/16 0530 10/13/16 0530 Results 24 hrs Laboratory Tests Test 10/13/16 05:30 Anion Gap 15 Basophils # 0.0 Basophils % 0.2 Blood Urea Nitrogen 53 H Calcium Level 9.6 Carbon Dioxide Level 27 Chloride Level 109 Creatinine 1.32 H Eosinophils # 0.1 Eosinophils % 0.3 Glucose Level 81 Hematocrit 31.2 L Hemoglobin 9.6 L Lymphocytes # 0.8 Lymphocytes % 4.6 L Magnesium Level 2.0 Mean Corpuscular Hemoglobin 29.6 Mean Corpuscular Hemoglobin Concent 30.8 L Mean Corpuscular Volume 96.3 Mean Platelet Volume 10.8 H Monocytes # 0.9 Monocytes % 5.1 Neutrophils # 14.6 H Neutrophils % 88.4 H Nucleated Red Blood Cells # 0.0 Nucleated Red Blood Cells % 0.0 Phosphorus Level 4.5 Platelet Count 238 Potassium Level 3.4 L Red Blood Count 3.24 L Red Cell Distribution Width 15.6 H Sodium Level 148 H White Blood Count 16.6 H Medications Medications Current Medications Acetaminophen (Tylenol Liquid) 650 mg Q6 PRN GTB PAIN AND OR ELEVATED TEMP Last administered on 10/09/16 12:37; Admin Dose 650 MG; Start 09/30/16 at 18:00 Eye Lubricant (Artificial Tears Oph) 2 drop HS BOTH EYES Last administered on 23:20; Admin Dose 2 DROP; Start 09/30/16 at 21:00 Zolpidem Tartrate (Ambien) 5 mg HS PRN PO INSOMNIA; Start 09/30/16 at 18:00 Bacitracin (Bacitracin Oint (Ud)) 1 applic BID TOP Last administered on 20:29; Admin Dose 1 APPLIC; Start 09/30/16 at 21:00 Ferrous Sulfate (Feosol Liquid Cup) 300 mg BID GTB Last administered on 10:23; Admin Dose 300 MG; Start 09/30/16 at 21:00 Fluconazole (Diflucan) 100 mg DAILY GTB Last administered on 10/13/16 10:24; Admin Dose 100 MG; Start 10/01/16 at 09:00 Hypromellose 1 drop 1 drop Q6H PRN BOTH EYES IRRITATION Last administered on 16:30; Admin Dose 1 DROP; Start 09/30/16 at 20:00 Linezolid (Zyvox 600mg/D5W (Pmx)) 300 ml @ 300 mls/hr Q12 IVPB Last administered on 10/13/16 10:22; Admin Dose 300 MLS/HR; Start 10/01/16 at 21:00 Acetaminophen (Tylenol Liquid) 650 mg Q4H PRN GTB FEVER/PAIN; Start 10/03/16 at 04:00 Ascorbic Acid (Vitamin C) 500 mg BID GTB Last administered on 10/13/16 10:23; Admin Dose 500 MG; Start 10/03/16 at 21:00 Multivitamins (Thera-Plus) 5 ml DAILY GTB Last administered on 10/13/16 10:24; Admin Dose 5 ML; Start 10/04/16 at 09:00 Tramadol HCl 75 mg 75 mg Q6H PRN GTB PAIN Last administered on 10/13/16 00:17; Admin Dose 75 MG; Start 10/04/16 at 12:00 Meropenem (Merrem 500 Mg/ 100 ml (Pmx)) 100 ml @ 200 mls/hr Q12 IVPB Last administered on 10/13/16 10:22; Admin Dose 200 MLS/HR; Start 10/05/16 at 21:00 Sodium Hypochlorite (Dakin'S (1/4 Strength)) 1 applic DAILY IRR Last administered on 10/12/16 08:53; Admin Dose 1 APPLIC; Start 10/05/16 at 15:30 Hydrocortisone (Hydrocortisone 0.5% Oint) 1 applic BID PRN TOP ITCHING; Start 10/07/16 at 08:00 Bacitracin/ Polymyxin B Sulfate (Ak-Poly-Jaun Oph Oint) 1 applic Q12 BOTH EYES Last administered on 10/12/16 23:22; Admin Dose 1 APPLIC; Start 10/08/16 at 16: 30 LUIS ARMANDO MIRANDA NP Oct 13, 2016 11:50
--- NOTE | 2016-10-13 19:26 | PN ---
Date/Time of Note Date/Time of Note DATE: 10/12/16 TIME: 19:25 Assessment/Plan Lines/Catheters IV Catheter Type (from [facility]): PICC Line Cruz in Place (from [facility]): No (suprapubic cath) Assessment/Plan Chief Complaint/Hosp Course 1. Decubitus ulceration with necrotic tissue s/p excisional debridement 10/10 -off loading -optimization of nutrition -vit c -local care 2. Sepsis, multifactorial -abx -supportive -wound care -pulmonary toilette -aspiration precautions 3. Dysphagia on tube feeds 4. Anemia -monitor 5. Pelvic mass hx of tongue and prostate cancer, currently with hydronephrosis -heme/onc -urology 6. Renal insufficiency -judicious fluid management 7. Diastolic heart failure -cardiac optimization -judicious fluid management 8. Hypoxemic respiratory failure with advanced COPD and aspiration PNAs -pulmonary toilette -aspiration precautions 9. Parkinson disease/neurodegenerative disorder with dementia -medical optimization Thank you, Late entry 10/12 Problems: Subjective 24 Hr Interval Summary Leukocytosis. No f/c. No cough. No sz. No rash. Wounds. Min sob. No cp. No vomiting. Bowel function. No bleeding. No bloating. Exam/Review of Systems Vital Signs Vitals Vital Signs Date Time Temp Pulse Resp B/P Pulse Ox O2 Delivery O2 Flow Rate FiO2 10/13/16 16:58 106 10/13/16 16:34 2.0 10/13/16 15:49 99.6 21 140/75 95 10/13/16 14:49 Nasal Cannula 10/11/16 12:10 52 Intake and Output 10/12/16 10/12/16 10/13/16 15:00 23:00 07:00 Intake Total 1070 ml 1370 ml Output Total 1000 ml 2150 ml Balance 70 ml -780 ml Exam Free Text/Dictation Constitutional: distress, No oriented Psych: anxiety, No nl mood/affect Head: normocephalic Eyes: EOMI, PERRL, nl conjunctiva, No icteric ENMT: nl external ears & nose, No mucosa pink and moist Neck: jvd, No non-tender, No supple Respiratory: No congested cough, No normal air movement Cardiovascular: No edema, No regular rate and rhythm Gastrointestinal: non-tender, soft, No rebound or guarding Musculoskeletal: No nl extremities to inspection, No nl gait and stance Extremities: No calf tenderness, No cyanosis Neurological: No nl mental status, No nl speech, No nl strength Skin: rash or lesions (decubitus ulcers with necrotic debris), No diaphoresis Lymph: nontender Results Result Diagram: 10/13/16 0530 10/13/16 0530 CHELSY CAIN MD Oct 13, 2016 19:26
--- NOTE | 2016-10-13 19:27 | PN ---
Date/Time of Note Date/Time of Note DATE: 10/13/16 TIME: 19:26 Assessment/Plan Lines/Catheters IV Catheter Type (from [facility]): PICC Line Cruz in Place (from [facility]): No (suprapubic cath) Assessment/Plan Chief Complaint/Hosp Course 1. Decubitus ulceration with necrotic tissue s/p excisional debridement 10/10 -off loading -optimization of nutrition -vit c -local care 2. Sepsis, multifactorial -abx -supportive -wound care -pulmonary toilette -aspiration precautions 3. Dysphagia on tube feeds 4. Anemia -monitor 5. Pelvic mass hx of tongue and prostate cancer, currently with hydronephrosis -heme/onc -urology 6. Renal insufficiency -judicious fluid management 7. Diastolic heart failure -cardiac optimization -judicious fluid management 8. Hypoxemic respiratory failure with advanced COPD and aspiration PNAs -pulmonary toilette -aspiration precautions 9. Parkinson disease/neurodegenerative disorder with dementia -medical optimization Thank you, Problems: Subjective 24 Hr Interval Summary Leukocytosis. Low grade fevers. No chills. No cough. No sz. No rash. Wounds. Min sob. No cp. No vomiting. Bowel function. No bleeding. No bloating. Exam/Review of Systems Vital Signs Vitals Vital Signs Date Time Temp Pulse Resp B/P Pulse Ox O2 Delivery O2 Flow Rate FiO2 10/13/16 16:58 106 10/13/16 16:34 2.0 10/13/16 15:49 99.6 21 140/75 95 10/13/16 14:49 Nasal Cannula 10/11/16 12:10 52 Intake and Output 10/12/16 10/12/16 10/13/16 15:00 23:00 07:00 Intake Total 1070 ml 1370 ml Output Total 1000 ml 2150 ml Balance 70 ml -780 ml Exam Free Text/Dictation Constitutional: distress, No oriented Psych: anxiety, No nl mood/affect Head: normocephalic Eyes: EOMI, PERRL, nl conjunctiva, No icteric ENMT: nl external ears & nose, No mucosa pink and moist Neck: jvd, No non-tender, No supple Respiratory: No congested cough, No normal air movement Cardiovascular: No edema, No regular rate and rhythm Gastrointestinal: non-tender, soft, No rebound or guarding Musculoskeletal: No nl extremities to inspection, No nl gait and stance Extremities: No calf tenderness, No cyanosis Neurological: No nl mental status, No nl speech, No nl strength Skin: rash or lesions (decubitus ulcers with necrotic debris), No diaphoresis Lymph: nontender Results Result Diagram: 10/13/16 0530 10/13/16 0530 CHELSY CAIN MD Oct 13, 2016 19:27
[2016-10-13] MEDS: ARTIFICIAL TEARS 15 ML OPH BOTH EYES SCH (19:46)
[2016-10-14] VITALS (10 sets, daily range): BP systolic 114–164; BP diastolic 66–89; PULSE 91–104; RESP 20–22
[2016-10-14] MEDS: LEVALBUTEROL (NEB) 0.63 MG/3 ML AMP HHN SCH ×3 (01:48→13:47)
[2016-10-14] MEDS: traMADol 50 MG TAB GTB PRN (05:47)
[2016-10-14 07:01] LABS: ADD SCAN DIFF NO
[2016-10-14 07:11] LABS: BASOPHILS % 0.1 % (0.0-2.0); EOSINOPHILS % 0.3 % (0.0-7.0); HEMATOCRIT 27.9 % (42.0-52.0); HEMOGLOBIN 8.6 g/dl (14.0-18.0); LYMPHOCYTES # 0.6 10^3/ul (0.8-2.9); LYMPHOCYTES % 4.2 % (15.0-51.0); MEAN CORPUSCULAR HGB CONC 30.8 g/dl (32.0-37.0); MEAN CORPUSCULAR VOLUME 97.2 fl (82.0-101.0); MEAN PLATELET VOLUME 10.9 fl (7.4-10.4); MONOCYTE # 1.2 10^3/ul (0.3-0.9); MONOCYTES % 8.2 % (0.0-11.0); NEUTROPHIL # 12.3 10^3/ul (1.6-7.5); NEUTROPHILS % 85.3 % (39.0-77.0); PLATELET COUNT 217 10^3/UL (140-415); RED BLOOD COUNT 2.87 10^6/ul (4.70-6.10); RED CELL DISTRIBUTION WIDTH 15.6 % (11.5-14.5); WHITE BLOOD COUNT 14.4 10^3/ul (4.8-10.8)
[2016-10-14 07:22] LABS: POTASSIUM 3.6 mmol/L (3.5-5.1)
[2016-10-14 07:24] LABS: CREATININE 1.12 mg/dl (0.61-1.24)
[2016-10-14 07:25] LABS: CALCIUM 9.3 mg/dl (8.4-10.2); PHOSPHORUS 3.5 mg/dl (2.5-4.9)
[2016-10-14] MEDS: MEROPENEM 500 MG/100 ML (PMX) 100 ML IVPB SCH (08:27)
[2016-10-14] MEDS: FERROUS SULFATE 60 MG/ML 5ML CUP GTB SCH (08:27)
[2016-10-14] MEDS: SODIUM HYPOCHLORITE 0.125% 473 ML BTL IRR SCH (08:28)
[2016-10-14] MEDS: MULTIVITAMINS 5 ML CUP GTB SCH (08:28)
[2016-10-14] MEDS: FLUCONAZOLE 100 MG TAB GTB SCH (08:28)
[2016-10-14] MEDS: ASCORBIC ACID 500 MG TAB GTB SCH (08:28)
[2016-10-14] MEDS: LINEZOLID 600 MG/D5W (PMX) 300 ML IVPB SCH (09:30)
--- NOTE | 2016-10-14 10:59 | CONS ---
Date/Time of Note Date/Time of Note DATE: 10/14/16 TIME: 10:57 Assessment/Plan Assessment/Plan Chief Complaint/Hosp Course SUBJECTIVE: No events overnight. spiked fever of 102 last night. Remains obtunded, noncommunicative, nad. INDWELLINGS: Suprapubic catheter, PICC line placed on 10/02/2016. ANTIMICROBIALS: 1. Meropenem. 2. Zyvox. 3. Fluconazole. PHYSICAL EXAMINATION: GENERAL: This is a fragile, chronically ill-appearing, elderly man who is lying comfortably in bed. HEENT: Head atraumatic, normocephalic. Sclerae anicteric. Buccal mucosa dry. NECK: Supple, trachea midline. CHEST: Rise symmetrical. Breath sounds with bilateral crackles. HEART: S1, S2. ABDOMEN: Soft, bowel sounds present. EXTREMITIES: With trace edema. ASSESSMENT: 1. Ongoing sepsis, status post shock. 2. Multiple infected wounds, status post debridement on 10/10/2016. 3. Significant secretion retention with ongoing aspiration. 4. Chronic obstructive pulmonary disease. 5. Pelvic mass, likely malignant. 6. History of tongue and prostate cancer, status post TURP, chemoradiation and placement of suprapubic catheter. 7. Rectal bleeding, likely from radiation proctitis. PLAN: The patient remains unchanged, will repeat cx's and start on empiric Flagyl, continue antibiotics. Continue aggressive pulmonary toilet. DW staff Problems: Consultation Date/Type/Reason Admit Date/Time Sep 30, 2016 at 17:03 Initial Consult Date 10/05/16 Type of Consultation: ID Exam/Review of Systems Vital Signs Vitals Vital Signs Date Time Temp Pulse Resp B/P Pulse Ox O2 Delivery O2 Flow Rate FiO2 10/14/16 09:13 100 2.0 10/14/16 09:13 100 32 Nasal Cannula 10/14/16 08:10 98.7 140/75 10/11/16 12:10 52 Intake and Output 10/13/16 10/13/16 10/14/16 15:00 23:00 07:00 Intake Total 1890 ml Output Total 1000 ml Balance 890 ml Results Result Diagram: 10/14/16 0630 10/14/16 0630 Results 24 hrs Laboratory Tests Test 10/14/16 06:30 Anion Gap 12 Basophils # 0.0 Basophils % 0.1 Blood Urea Nitrogen 46 H Calcium Level 9.3 Carbon Dioxide Level 29 Chloride Level 109 Creatinine 1.12 Eosinophils # 0.0 Eosinophils % 0.3 Glucose Level 97 Hematocrit 27.9 L Hemoglobin 8.6 L Lymphocytes # 0.6 L Lymphocytes % 4.2 L Magnesium Level 2.0 Mean Corpuscular Hemoglobin 30.0 Mean Corpuscular Hemoglobin Concent 30.8 L Mean Corpuscular Volume 97.2 Mean Platelet Volume 10.9 H Monocytes # 1.2 H Monocytes % 8.2 Neutrophils # 12.3 H Neutrophils % 85.3 H Nucleated Red Blood Cells # 0.0 Nucleated Red Blood Cells % 0.0 Phosphorus Level 3.5 Platelet Count 217 Potassium Level 3.6 Red Blood Count 2.87 L Red Cell Distribution Width 15.6 H Sodium Level 146 H White Blood Count 14.4 H Medications Medications Current Medications Acetaminophen (Tylenol Liquid) 650 mg Q6 PRN GTB PAIN AND OR ELEVATED TEMP Last administered on 10/09/16 12:37; Admin Dose 650 MG; Start 09/30/16 at 18:00 Eye Lubricant (Artificial Tears Oph) 2 drop HS BOTH EYES Last administered on 19:46; Admin Dose 2 DROP; Start 09/30/16 at 21:00 Zolpidem Tartrate (Ambien) 5 mg HS PRN PO INSOMNIA; Start 09/30/16 at 18:00 Bacitracin (Bacitracin Oint (Ud)) 1 applic BID TOP Last administered on 09:00; Admin Dose 1 APPLIC; Start 09/30/16 at 21:00 Ferrous Sulfate (Feosol Liquid Cup) 300 mg BID GTB Last administered on 08:27; Admin Dose 300 MG; Start 09/30/16 at 21:00 Fluconazole (Diflucan) 100 mg DAILY GTB Last administered on 10/14/16 08:28; Admin Dose 100 MG; Start 10/01/16 at 09:00 Hypromellose 1 drop 1 drop Q6H PRN BOTH EYES IRRITATION Last administered on 16:30; Admin Dose 1 DROP; Start 09/30/16 at 20:00 Linezolid (Zyvox 600mg/D5W (Pmx)) 300 ml @ 300 mls/hr Q12 IVPB Last administered on 10/14/16 09:30; Admin Dose 300 MLS/HR; Start 10/01/16 at 21:00 Acetaminophen (Tylenol Liquid) 650 mg Q4H PRN GTB FEVER/PAIN; Start 10/03/16 at 04:00 Ascorbic Acid (Vitamin C) 500 mg BID GTB Last administered on 10/14/16 08:28; Admin Dose 500 MG; Start 10/03/16 at 21:00 Multivitamins (Thera-Plus) 5 ml DAILY GTB Last administered on 10/14/16 08:28; Admin Dose 5 ML; Start 10/04/16 at 09:00 Tramadol HCl 75 mg 75 mg Q6H PRN GTB PAIN Last administered on 10/14/16 05:47; Admin Dose 75 MG; Start 10/04/16 at 12:00 Meropenem (Merrem 500 Mg/ 100 ml (Pmx)) 100 ml @ 200 mls/hr Q12 IVPB Last administered on 10/14/16 08:27; Admin Dose 200 MLS/HR; Start 10/05/16 at 21:00 Sodium Hypochlorite (Dakin'S (1/4 Strength)) 1 applic DAILY IRR Last administered on 10/14/16 08:28; Admin Dose 1 APPLIC; Start 10/05/16 at 15:30 Hydrocortisone (Hydrocortisone 0.5% Oint) 1 applic BID PRN TOP ITCHING; Start 10/07/16 at 08:00 Bacitracin/ Polymyxin B Sulfate (Ak-Poly-Jaun Oph Oint) 1 applic Q12 BOTH EYES Last administered on 10/13/16 20:13; Admin Dose 1 APPLIC; Start 10/08/16 at 16: 30 LUIS ARMANDO MIRANDA NP Oct 14, 2016 10:59
--- NOTE | 2016-10-14 11:40 | CONS ---
Date/Time of Note Date/Time of Note DATE: 10/14/16 TIME: 11:39 Assessment/Plan Assessment/Plan Additional Assessment/Plan Additional Assessment/Plan Additional Assessment/Plan Additional Assessment/Plan 1. Rectal bleeding, mostly from radiation proctitis for prostate cancer, rule out also mass in the pelvis eroding into the rectum. This mass was told to the patient at [facility] as a tongue cancer migrated down into the pelvis as a distant metastasis.bleeding stopped,ht stable 2. Dysphagia, status post gastrostomy tube. 3. Parkinson disease and neurodegenerative disorder. 4. Anemia, chronic. He had multiple transfusions in the past. 5. History of prostate cancer for which he had transurethral resection of prostate, radiation and chemotherapy a few years ago. 6. Tongue cancer for which he had treatment 13 to 14 years ago. 7. Chronic neurogenic bladder. 8. Right-sided hydronephrosis. 9. Hyponatremia. 10. Renal insufficiency. 11. Severe sepsis, most probably from decubitus ulcer infection. 12 encephalopathy Plan monitor H&H,which is stable continue antibiotics ppi continue present care Consultation Date/Type/Reason Admit Date/Time Sep 30, 2016 at 17:03 Initial Consult Date 10/05/16 Type of Consultation: ID [id number] HR Interval Summary Free Text/Dictation discussed with staff,no rectal bleeding Subjective hx not possible: pt non-verbal Exam/Review of Systems Vital Signs Vitals Vital Signs Date Time Temp Pulse Resp B/P Pulse Ox O2 Delivery O2 Flow Rate FiO2 10/14/16 09:13 100 2.0 10/14/16 09:13 100 32 Nasal Cannula 10/14/16 08:10 98.7 140/75 10/11/16 12:10 52 Intake and Output 10/13/16 10/13/16 10/14/16 15:00 23:00 07:00 Intake Total 1890 ml Output Total 1000 ml Balance 890 ml Exam Constitutional: alert, oriented, well developed Psych: nl mood/affect, no complaints Head: atraumatic, normocephalic Eyes: EOMI, PERRL, nl conjunctiva, nl lids, nl sclera ENMT: nl external ears & nose, nl lips & teeth, nl nasal mucosa & septum Neck: non-tender, supple Respiratory: clear to auscultation, normal air movement Cardiovascular: nl pulses, regular rate and rhythm Gastrointestinal: nl liver, spleen, non-tender, soft Musculoskeletal: nl extremities to inspection, nl gait and stance Extremities: normal pulses Neurological: VENDOR ANALYST II-XII intact, nl mental status, nl speech, nl strength Skin: nl turgor, No rash or lesions Lymph: nl lymph nodes Results Result Diagram: 10/14/16 0630 10/14/16 0630 Results 24 hrs Laboratory Tests Test 10/14/16 06:30 Anion Gap 12 Basophils # 0.0 Basophils % 0.1 Blood Urea Nitrogen 46 H Calcium Level 9.3 Carbon Dioxide Level 29 Chloride Level 109 Creatinine 1.12 Eosinophils # 0.0 Eosinophils % 0.3 Glucose Level 97 Hematocrit 27.9 L Hemoglobin 8.6 L Lymphocytes # 0.6 L Lymphocytes % 4.2 L Magnesium Level 2.0 Mean Corpuscular Hemoglobin 30.0 Mean Corpuscular Hemoglobin Concent 30.8 L Mean Corpuscular Volume 97.2 Mean Platelet Volume 10.9 H Monocytes # 1.2 H Monocytes % 8.2 Neutrophils # 12.3 H Neutrophils % 85.3 H Nucleated Red Blood Cells # 0.0 Nucleated Red Blood Cells % 0.0 Phosphorus Level 3.5 Platelet Count 217 Potassium Level 3.6 Red Blood Count 2.87 L Red Cell Distribution Width 15.6 H Sodium Level 146 H White Blood Count 14.4 H Medications Medications Current Medications Acetaminophen (Tylenol Liquid) 650 mg Q6 PRN GTB PAIN AND OR ELEVATED TEMP Last administered on 10/09/16 12:37; Admin Dose 650 MG; Start 09/30/16 at 18:00 Eye Lubricant (Artificial Tears Oph) 2 drop HS BOTH EYES Last administered on 19:46; Admin Dose 2 DROP; Start 09/30/16 at 21:00 Zolpidem Tartrate (Ambien) 5 mg HS PRN PO INSOMNIA; Start 09/30/16 at 18:00 Bacitracin (Bacitracin Oint (Ud)) 1 applic BID TOP Last administered on 09:00; Admin Dose 1 APPLIC; Start 09/30/16 at 21:00 Ferrous Sulfate (Feosol Liquid Cup) 300 mg BID GTB Last administered on 08:27; Admin Dose 300 MG; Start 09/30/16 at 21:00 Fluconazole (Diflucan) 100 mg DAILY GTB Last administered on 10/14/16 08:28; Admin Dose 100 MG; Start 10/01/16 at 09:00 Hypromellose 1 drop 1 drop Q6H PRN BOTH EYES IRRITATION Last administered on 16:30; Admin Dose 1 DROP; Start 09/30/16 at 20:00 Linezolid (Zyvox 600mg/D5W (Pmx)) 300 ml @ 300 mls/hr Q12 IVPB Last administered on 10/14/16 09:30; Admin Dose 300 MLS/HR; Start 10/01/16 at 21:00 Acetaminophen (Tylenol Liquid) 650 mg Q4H PRN GTB FEVER/PAIN; Start 10/03/16 at 04:00 Ascorbic Acid (Vitamin C) 500 mg BID GTB Last administered on 10/14/16 08:28; Admin Dose 500 MG; Start 10/03/16 at 21:00 Multivitamins (Thera-Plus) 5 ml DAILY GTB Last administered on 10/14/16 08:28; Admin Dose 5 ML; Start 10/04/16 at 09:00 Tramadol HCl 75 mg 75 mg Q6H PRN GTB PAIN Last administered on 10/14/16 05:47; Admin Dose 75 MG; Start 10/04/16 at 12:00 Meropenem (Merrem 500 Mg/ 100 ml (Pmx)) 100 ml @ 200 mls/hr Q12 IVPB Last administered on 10/14/16 08:27; Admin Dose 200 MLS/HR; Start 10/05/16 at 21:00 Sodium Hypochlorite (Dakin'S (1/4 Strength)) 1 applic DAILY IRR Last administered on 10/14/16 08:28; Admin Dose 1 APPLIC; Start 10/05/16 at 15:30 Hydrocortisone (Hydrocortisone 0.5% Oint) 1 applic BID PRN TOP ITCHING; Start 10/07/16 at 08:00 Bacitracin/ Polymyxin B Sulfate (Ak-Poly-Jaun Oph Oint) 1 applic Q12 BOTH EYES Last administered on 10/13/16 20:13; Admin Dose 1 APPLIC; Start 10/08/16 at 16: 30 Metronidazole (Flagyl) 500 mg Q8 PO ; Start 10/14/16 at 14:00 CHELE CASE MD 3, 2017 11:40
--- NOTE | 2016-10-14 12:21 | PN ---
DATE: 10/14/2016 SUBJECTIVE: The patient is currently at baseline, mildly tachypneic. No other events noted. No he moptysis, hematemesis. OBJECTIVE: VITAL SIGNS: Blood pressure 140/75, respirations 20, pulse 98, temperature 98.7. HEENT: Head is normocephalic. NECK: Supple. HEART: Regular rate. LUNGS: Show diminished breath sounds at the bases. ABDOMEN: Soft, nontender to palpation. No rebound or guarding. EXTREMITIES: Negative for clubbing, cyanosis. Trace edema. DERMATOLOGIC: No rashes. MUSCULOSKELETAL: No joint effusions. NEUROLOGIC: No change in exam. MEDICATIONS: The patient's medications have been reviewed. LABORATORY DATA: Shows sodium 146, potassium 3.6, chloride 109, BUN 46, creatinine 1.12. White cou nt 14.4, hemoglobin 9.6, hematocrit 27.9, platelet count 317. ASSESSMENT AND PLAN: 1. Severe sepsis secondary to decubitus wound and urinary tract infection. The patient is currentl y on antibiotics, we will continue. Follow up with infectious disease. 2. Leukocytosis secondary to sepsis, improving. Continue to monitor. 3. Acute lower gastrointestinal bleed, likely due to radiation proctitis. The patient is status po st blood transfusion. Hemoglobin levels are slowly trending down. Continue to monitor closely. No further evidence of gastrointestinal bleed. GI is following. 4. Acute hypoxemic respiratory failure secondary to sepsis. The patient is currently stable on arnie al cannula, continue. 5. History of tongue cancer with metastasis in pelvis. Continue to monitor. 6. Dysphagia, status post percutaneous endoscopic gastrostomy. Continue tube feedings. 7. Decubitus wound. Continue wound care. The patient is status post debridement. 8. Parkinson's disease. Continue current treatment plan 9. Diastolic heart failure. Continue medical management, intermittent diuretic therapy. 10. Prostate cancer status post TURP. Continue to monitor. The patient has suprapubic catheter. 11. Right-sided hydronephrosis secondary to pelvic mass. Continue to monitor. 12. Hypernatremia, improving. Continue free water flushes. 13. Acute encephalopathy. No change. 14. Nonoliguric acute kidney injury secondary to acute tubular necrosis. Renal function is slowly improving. Continue supportive care, renally dose all meds, avoid nephrotoxins. 15. Gastrointestinal and deep venous thrombosis prophylaxis. Continue proton pump inhibitor and se quential leg squeezers. Dictated By: JAX ANDRADE/CHELSI Conf#: [id number] DID#: [id number]
--- NOTE | 2016-10-14 13:19 | RADRPT ---
PROCEDURE: XR Chest. CLINICAL INDICATION: Pneumonia TECHNIQUE: A single AP view of the chest was obtained. COMPARISON: Chest x-ray dated 10/11/2016 FINDINGS: There is a left upper extremity PICC line with tip in the proximal left brachiocephalic vein. No focal airspace opacification, pleural effusion or pneumothorax is seen. The cardiomediastinal si lhouette is within normal limits for size. The osseous structures demonstrate previous trauma to th e right shoulder and chest wall with chronic deformity. IMPRESSION: 1. No radiographic evidence of acute cardiopulmonary disease. No significant interval change. 2. Old right shoulder and chest wall traumatic deformity. 3. Left upper extremity PICC line with tip in the proximal portion of the left brachiocephalic vein . RPTAT: HH .Stephanie Turpin MD, Date Time Electronically viewed and signed by .Stephanie Turpin MD, MD on 10/14/2016 13:19 .G/
[2016-10-14] MEDS ORDERED: metroNIDAZOLE 500 MG TAB PO SCH (14:00)
--- NOTE | 2016-10-14 14:03 | PN ---
DATE: 10/14/2016 CARDIOLOGY FOLLOWUP SUBJECTIVE: Discussed with staff. Rhythm strip reviewed. The patient remains in sinus rhythm, sin us tachycardia. He remains nonverbal. MEDICATIONS: Reviewed. PHYSICAL EXAMINATION: VITAL SIGNS: Temperature 98.7, heart rate of 91, blood pressure 135/79, respiratory rate of 21, sat urating 100% now. HEENT: Normocephalic, atraumatic. CARDIOVASCULAR: Regular rate and rhythm, systolic murmur. PULMONARY: Mild rhonchi at the bases. GASTROINTESTINAL: Soft, nontender. EXTREMITIES: With positive lower extremity edema. NEUROLOGIC: Does not answer questions verbalized. LABORATORY DATA: WBC of 14.4, hemoglobin 8.6, platelets 217. Sodium 146, potassium 3.6, BUN of 46, creatinine 1.12, glucose of 97. ASSESSMENT AND PLAN: 1. Status post sepsis, currently improved. 2. Sinus tachycardia secondary to above. 3. Pneumonia. 4. Status post gastrointestinal bleed. 5. Respiratory failure. 6. History of tongue cancer. 7. Congestive heart failure with diastolic dysfunction. RECOMMENDATIONS: We will continue the current cardiac care and antibiotics. We will continue to mo nitor on telemetry. Respiratory care will be continued, oxygen supplement as needed. Dictated By: KATIE DURÁN MD AV/CHELSI Conf#: [id number] DID#: [id number] CC: JAX SLATER DO;*EndCC*
[2016-10-14] MEDS: BACITRACIN 0.9 GM OINT TOP SCH (15:16)
[2016-10-14 22:20] LABS: ADD UMIC YES; URINE BILIRUBIN (Dip) NEGATIVE (NEGATIVE); URINE BLOOD (Dip) 3+ (NEGATIVE); URINE COLOR LT. YELLOW (YELLOW); URINE GLUCOSE (Dip) NEGATIVE (NEGATIVE); URINE KETONES (Dip) NEGATIVE (NEGATIVE); URINE LEUKOCYTE ESTERASE (Dip) 1+ (NEGATIVE); URINE NITRITE (Dip) NEGATIVE (NEGATIVE); URINE TOTAL PROTEIN (Dip) 2+ (NEGATIVE); URINE UROBILINOGEN (Dip) 0.2 E.U./dL (0.1-1.0)
[2016-10-14 23:29] LABS: BACTERIA,URINE FEW; TRANSITIONAL EPI CELLS,URINE FEW; URINE RBCS 25-50 /HPF (0)
--- NOTE | 2016-10-14 23:34 | PN ---
Date/Time of Note Date/Time of Note DATE: 10/14/16 TIME: 23:32 Assessment/Plan Lines/Catheters IV Catheter Type (from [facility]): PICC Line Cruz in Place (from [facility]): Yes (SUPRA PUBIC CATHETER) Assessment/Plan Chief Complaint/Hosp Course 1. Decubitus ulceration with necrotic tissue s/p excisional debridement 10/10 -off loading -optimization of nutrition -vit c -local care 2. Sepsis, multifactorial -abx -supportive -wound care -pulmonary toilette -aspiration precautions 3. Dysphagia on tube feeds 4. Anemia -monitor 5. Pelvic mass hx of tongue and prostate cancer, currently with hydronephrosis -heme/onc -urology 6. Renal insufficiency -judicious fluid management 7. Diastolic heart failure -cardiac optimization -judicious fluid management 8. Hypoxemic respiratory failure with advanced COPD and aspiration PNAs -pulmonary toilette -aspiration precautions 9. Parkinson disease/neurodegenerative disorder with dementia -medical optimization Thank you, Late entry Problems: Subjective 24 Hr Interval Summary Leukocytosis. Low grade fevers improved. No chills. No cough. No sz. No rash. Wounds. Min sob. No cp. No vomiting. Bowel function. No bleeding. No bloating. Exam/Review of Systems Vital Signs Vitals Vital Signs Date Time Temp Pulse Resp B/P Pulse Ox O2 Delivery O2 Flow Rate FiO2 10/14/16 16:09 99.3 63 22 127/84 97 10/14/16 13:59 2.0 10/14/16 13:48 Nasal Cannula 10/11/16 12:10 52 Intake and Output 10/13/16 10/13/16 10/14/16 15:00 23:00 07:00 Intake Total 1890 ml Output Total 1000 ml Balance 890 ml Exam Free Text/Dictation Constitutional: distress, No oriented Psych: anxiety, No nl mood/affect Head: normocephalic Eyes: EOMI, PERRL, nl conjunctiva, No icteric ENMT: nl external ears & nose, No mucosa pink and moist Neck: jvd, No non-tender, No supple Respiratory: No congested cough, No normal air movement Cardiovascular: No edema, No regular rate and rhythm Gastrointestinal: non-tender, soft, No rebound or guarding Musculoskeletal: No nl extremities to inspection, No nl gait and stance Extremities: No calf tenderness, No cyanosis Neurological: No nl mental status, No nl speech, No nl strength Skin: rash or lesions (decubitus ulcers with necrotic debris), No diaphoresis Lymph: nontender Results Result Diagram: 10/14/1662910/14/1630 CHELSY CAIN MD Oct 14, 2016 23:33
== END 2016-10-14 18:45 | DRG 853 ==
LOC: MERGE 17:03 → ICU 17:03 → MS4 10-11 22:15
PROVIDERS: ADMIT Internal Medicine; ATTEND Internal Medicine
PROC: 30233N1 Transfusion of Nonautologous Red Blood Cells into Peripheral Vein, Percutaneous Approach (ICD-10-PCS; 2016-10-01)
PROC: 02HV33Z Insertion of Infusion Device into Superior Vena Cava, Percutaneous Approach (ICD-10-PCS; 2016-10-02)
PROC: 0KBP0ZZ Excision of Left Hip Muscle, Open Approach (ICD-10-PCS; principal; 2016-10-10)
DX: A41.9 Sepsis, unspecified organism (principal); R65.21 Severe sepsis with septic shock; J96.01 Acute respiratory failure with hypoxia; J69.0 Pneumonitis due to inhalation of food and vomit; N17.0 Acute kidney failure with tubular necrosis; L89.154 Pressure ulcer of sacral region, stage 4; G93.1 Anoxic brain damage, not elsewhere classified; R57.0 Cardiogenic shock; L89.224 Pressure ulcer of left hip, stage 4; I50.31 Acute diastolic (congestive) heart failure; C79.89 Secondary malignant neoplasm of other specified sites; E87.0 Hyperosmolality and hypernatremia; N39.0 Urinary tract infection, site not specified; K62.5 Hemorrhage of anus and rectum; Z93.1 Gastrostomy status; R13.10 Dysphagia, unspecified; D64.9 Anemia, unspecified; N31.9 Neuromuscular dysfunction of bladder, unspecified; Z85.46 Personal history of malignant neoplasm of prostate; Z85.810 Personal history of malignant neoplasm of tongue; E87.6 Hypokalemia; J44.9 Chronic obstructive pulmonary disease, unspecified; G20 Parkinson's disease; F02.80 Dementia in other diseases classified elsewhere, unspecified severity, without behavioral disturbance, psychotic disturbance, mood disturbance, and anxiety; K62.7 Radiation proctitis; I11.0 Hypertensive heart disease with heart failure
CPT/HCPCS: 36430; 36569; 36600; 71010; 74000; 76937; 80048; 80053; 81001; 81003; 82043; 82150; 82533; 82803; 83605; 83615; 83690; 83735; 84100; 84155; 84300; 84484; 85014; 85018; 85025; 85610; 85730; 86850; 86900; 86901; 86920; 87040; 87070; 87075; 87081; 87086; 89220; 93005; 94640; 94664; 94667; 94668; J1650; J1940; J2185; J2997; J3475; J3480; J7030; J7040; P9016; P9047

== ENCOUNTER 2016-12-07 01:03 | Inpatient (IN) | payer OTHER, MEDICARE ==
[~2016-12-07] VITALS: Ht 182.9 cm; Wt 50.6 kg
[2016-12-07] VITALS (96 sets, daily range): BP systolic 54–143; BP diastolic 29–123; PULSE 47–111; RESP 14–43
[2016-12-07] MEDS ORDERED: SOD CHLORIDE 0.9% 500 ML IV ONE (01:43)
[2016-12-07] MEDS ORDERED: SOD CHLORIDE 0.9% 1,000 ML IV SCH (01:43)
[2016-12-07] MEDS ORDERED: ONDANSETRON 4 MG INJ IV PRN (02:00)
[2016-12-07] MEDS ORDERED: NA BICARBONATE 8.4% 50 ML SYG ONE (02:28)
[2016-12-07] MEDS ORDERED: NA BICARBONATE 8.4% 50 ML SYG IV ONE ×2 (02:34→17:00)
[2016-12-07] MEDS ORDERED: PHENYLephrine 20MG IN 250 ML 250 ML ONE ×2 (02:37→06:25)
[2016-12-07] MEDS ORDERED: SUCCINYLCHOLINE CHLORIDE 100 MG/5 ML SYG IV ONE (02:40)
[2016-12-07] MEDS ORDERED: ETOMIDATE 20 MG INJ ONE (02:40)
[2016-12-07] MEDS: PHENYLephrine 40 MG in DEXTROSE 5% 496 ML IV SCH ×3 (02:45→09:48)
[2016-12-07 03:17] LABS: ABNORMAL IP MESSAGE 1; ADD SCAN DIFF NO; HEMATOCRIT 25.1 % (42.0-52.0); HEMOGLOBIN 7.3 g/dl (14.0-18.0); MEAN CORPUSCULAR HEMOGLOBIN 29.9 pg (29.0-33.0); MEAN CORPUSCULAR HGB CONC 29.1 g/dl (32.0-37.0); MEAN CORPUSCULAR VOLUME 102.9 fl (82.0-101.0); MEAN PLATELET VOLUME 11.4 fl (7.4-10.4); PLATELET COUNT 394 10^3/UL (140-415); RED BLOOD COUNT 2.44 10^6/ul (4.70-6.10); RED CELL DISTRIBUTION WIDTH 16.6 % (11.5-14.5); WHITE BLOOD COUNT 44.7 10^3/ul (4.8-10.8)
--- NOTE | 2016-12-07 03:20 | RADRPT ---
PROCEDURE: CHEST - CLINICAL INDICATION: 76-year-old male with respiratory distress and intubation. TECHNIQUE: AP supine portable views of the chest were obtained onto radiographs. The images were reviewed on a PACS workstation. COMPARISON: Chest x-ray December 03, 2016; Chest x-ray November 09, 2016 FINDINGS: Surgical clips are seen within the left lower neck presumably from carotid endarterectomy. There gan s been interval placement of endotracheal tube with the tip approximately 9.0 cm above the allyssa. The cardiomediastinal silhouette is within normal limits. There is been progressive clearing of the left lung base. There is no evidence for congestive heart failure. There is no evidence for pneumot horax. There are multiple old right rib fracture deformities involving the right first, second, thir d, fourth and fifth ribs. Surgical clips are seen within the right upper quadrant from prior cholec ystectomy. IMPRESSION: 1. Interval placement of endotracheal tube with the tip in the upper trachea approximately 9.0 cm a joana the allyssa. 2. Multiple old right rib fracture deformities. 3. Status post cholecystectomy. .Pedro Sierra MD, MD Date Time Electronically viewed and signed by .Pedro Sierra MD, on 12/07/2016 03:20 .M/
[2016-12-07 03:29] LABS: POTASSIUM 4.8 mmol/L (3.5-5.1)
[2016-12-07 03:31] LABS: ALBUMIN/GLOBULIN RATIO 0.6; BILIRUBIN,INDIRECT 0.1 mg/dl (0-1.1); BILIRUBIN,TOTAL 0.1 mg/dl (0.2-1.3); CALCIUM 10.3 mg/dl (8.4-10.2); CREATININE 1.29 mg/dl (0.61-1.24); TOTAL PROTEIN 5.3 g/dl (6.1-8.1)
[2016-12-07] MEDS: SODIUM BICARBONATE (IV ADD) 100 MEQ in DEXTROSE 5% 900 ML IV SCH ×2 (03:37→16:05)
[2016-12-07 04:35] LABS: AADO2 Arterial 488.7 mmHg (7.0-24.0); Arterial Base Excess -10.9 mmol/L (-3.0-3); Arterial COHb 0.2 % (0.0-3.0); Arterial Fraction of Oxyhgb 97.7 % (93.0-99.0); Arterial HCO3 18.6 mmol/L (22.0-26.0); Arterial MetHb 0.4 % (0.0-1.5); Arterial Total Hemglobin 9.7 g/dl (12.0-18.0); Blood Gas Low PEEP Setting 0 cmH2O; MODE VENT - AC
[2016-12-07] MEDS ORDERED: SOD CHLORIDE 0.9% 1,000 ML IV ONE (05:00)
[2016-12-07] MEDS ORDERED: ALBUTEROL/IPRATROPIUM (NEB) 3 ML AMP NEB SCH (05:00)
[2016-12-07] MEDS ORDERED: VANCOMYCIN IV PER PHARMACY XX SCH (05:30)
[2016-12-07 05:41] LABS: LYMPHOCYTES # 0.9 10^3/ul (0.8-2.9); MONOCYTE # 1.8 10^3/ul (0.3-0.9); MYELOCYTES # 0.9; NEUTROPHIL # 36.2 10^3/ul (1.6-7.5)
[2016-12-07] MEDS ORDERED: VANCOMYCIN 1 GM in NS 250 ML IVPB ONE (06:00)
[2016-12-07 06:12] LABS: ADD SCAN DIFF NO
[2016-12-07 06:21] LABS: ABNORMAL IP MESSAGE 1; HEMATOCRIT 28.9 % (42.0-52.0); HEMOGLOBIN 8.3 g/dl (14.0-18.0); MEAN CORPUSCULAR HEMOGLOBIN 30.1 pg (29.0-33.0); MEAN CORPUSCULAR HGB CONC 28.7 g/dl (32.0-37.0); MEAN CORPUSCULAR VOLUME 104.7 fl (82.0-101.0); MEAN PLATELET VOLUME 11.8 fl (7.4-10.4); PLATELET COUNT 533 10^3/UL (140-415); RED BLOOD COUNT 2.76 10^6/ul (4.70-6.10); RED CELL DISTRIBUTION WIDTH 16.9 % (11.5-14.5); WHITE BLOOD COUNT 62.3 10^3/ul (4.8-10.8)
[2016-12-07 06:40] LABS: CALCIUM 10.5 mg/dl (8.4-10.2); CREATININE 1.25 mg/dl (0.61-1.24); MAGNESIUM 2.7 mg/dl (1.7-2.5); POTASSIUM 4.4 mmol/L (3.5-5.1)
[2016-12-07] MEDS ORDERED: PENDING SANTYL ORDER FOR WOUND CARE XX PRN (07:00)
[2016-12-07] MEDS: PANTOPRAZOLE 40 MG INJ IV SCH (07:12)
[2016-12-07 07:52] LABS: NEUTROPHIL # 54.8 10^3/ul (1.6-7.5)
[2016-12-07 07:53] LABS: HYPOCHROMASIA 1+
[2016-12-07] MEDS: ENOXAPARIN 30 MG/0.3 ML SYG SC SCH (08:06)
[2016-12-07] MEDS ORDERED: COLLAGENASE 30 GM TUBE TOP PRN (08:30)
[2016-12-07] MEDS ORDERED: IPRATROPIUM (HFA) 12.9 GM INHALER INH PRN (09:00)
--- NOTE | 2016-12-07 09:08 | RADRPT ---
PROCEDURE: XR Chest. CLINICAL INDICATION: resp failure TECHNIQUE: Single frontal view of the chest was obtained. COMPARISON: Chest x-ray from 12/07/2016 FINDINGS: The endotracheal tube is unchanged in position. The cardiomediastinal silhouette is unchanged. The aortic arch is calcified. There is increased right basilar atelectasis versus a developing infiltrate. The lungs are hyperexpanded. There is no significant pleural effusion or pneumothorax. Old right rib fracture deformities are again noted. IMPRESSION: Decreased right basilar atelectasis versus a developing infiltrate. Endotracheal tube is unchanged in position. Hyperexpanded lungs. RPTAT: EE Physician Augustine Date Time Electronically viewed and signed by Physician Augustine on 12/07/2016 09:08 /
[2016-12-07] MEDS: ALBUTEROL 18 GM INHALER INH SCH ×4 (09:27→23:39)
--- NOTE | 2016-12-07 10:36 | HP ---
DATE OF ADMISSION: 12/07/2016 CHIEF COMPLAINT: Septic shock, respiratory failure. HISTORY OF PRESENT ILLNESS: This is a 76-year-old male with a past medical history of advanced Park inson's dementia, a history of supranuclear palsy, history of metastatic tongue cancer, history of p elvic mass presumed to be metastatic disease, history of depression, history of subdural hematoma, h istory of meningioma, history of prostate cancer, history of dysphagia, status post PEG, history of multiple decubitus wounds, history of atrial fibrillation, arrhythmia, history of right-sided hydron ephrosis, history of gastrointestinal bleed, history of neurogenic bladder, history of diastolic hea rt failure, previous history of acute kidney injury/ATN, who presents to [facility] intensi ve care unit from [facility]. The patient apparently last night was noted to be ma rkedly hypotensive and bradycardic. The patient was given a fluid challenge, was placed on pressor support and intubated. He was then subsequently transferred to [facility] intensive care [facility]. While in the ICU, the patient has remained critically ill. He has been hypotensive despite pr essor support and aggressive IV fluids. The patient has had minimal urinary output. The patient gan s been on full ventilatory support. There have been no reports of hemoptysis, hematemesis or hemato chezia. The patient also was noted to have episodes of arrhythmia while in intensive care unit. Upon my evaluation of the patient at this time, he is critically ill. The patient is nonresponsive, only to deep painful stimuli. As stated above, there have been no reports of hemoptysis, hematemes is or hematochezia. PAST MEDICAL HISTORY: As stated above, history of Parkinson's disease, history of supranuclear pals y, history of dysphagia, status post PEG, history of likely metastatic tongue cancer, history of dep ression, history of subdural hematoma, history of meningioma, history of prostate cancer, history of diastolic heart failure, history of acute kidney injury, previous history of GI bleed. PAST SURGICAL HISTORY: Status post PEG, status post surgical debridement of wounds. FAMILY HISTORY: Noncontributory. SOCIAL HISTORY: No history of alcohol or drug use. MEDICATIONS: The patient's medications have been reviewed and reconciled. ALLERGIES: REVIEWED. REVIEW OF SYSTEMS: Unable to do adequate review of systems as patient is obtunded. Pertinent posit lynn obtained by reviewing medical records, speaking to hospital staff, stated in the HPI, otherwise negative. PHYSICAL EXAMINATION: VITAL SIGNS: Blood pressure is 126/63, respirations 37, pulse 79, temperature 98.6. GENERAL: The patient is critically ill, cachectic. HEENT: Head is normocephalic. Bilateral temporal wasting. NECK: Supple. HEART: Regular rate. LUNGS: Show diminished breath sounds at the bases. Positive rhonchi. ABDOMEN: Soft, nontender to palpation. Positive PEG. EXTREMITIES: Negative for clubbing, cyanosis. No edema. Bilateral muscle wasting. MUSCULOSKELETAL: Numerous decubitus wounds, stage IV noted. NEUROLOGIC: Limited exam as the patient is obtunded. LABORATORY DATA: Shows white count 16.3, hemoglobin 8.3, hematocrit 28.9, platelet count is 533. S odium 150, potassium 4.4, chloride 122, BUN 19, creatinine 1.25, calcium 10.5, magnesium 2.7. AST a nd ALT 213 and 138, alkaline phosphatase 163. IMAGING: Chest x-ray shows ET tube in place, old rib fracture, status post cholecystectomy. ASSESSMENT AND PLAN: This is a 76-year-old male who presents with: 1. Septic shock. Underlying source is unclear, possibly pneumonic, possible decubitus wounds, poss ible urinary. The patient is currently on IV fluids, on pressor support, on broad-spectrum antibiot ics. Plan at this point is to continue current treatment plan. We will place an ID consult for linda madrigal. We will follow up blood cultures, urine cultures, sputum cultures. We will check a lactic acid and procalcitonin level. If necessary, will consider CT scan of the chest, abdomen and pelvis . We will follow up with infectious disease for recommendations. 2. Ventilatory-dependent respiratory failure. Vent settings have been reviewed. ABG has been revi ewed. We will continue current medical management and follow up with pulmonary for recommendations. 3. Mixed acid base disorder. The patient has a respiratory acidosis and metabolic acidosis seconda ry to acute kidney injury and respiratory failure. The patient is currently on bicarbonate drip. T he patient's vent settings have been adjusted. We will repeat an ABG and monitor. 4. Oligoanuric acute kidney injury on top of chronic kidney disease with a baseline creatinine prev iously of 0.75 mg/dL. Etiology is secondary to acute tubular necrosis due to septic acute kidney in jury, ischemic hypoperfusion. Plan at this point is to check a UA with microanalysis. Will check u rine electrolytes. We will continue current treatment plan by treating underlying septic shock with IV fluids, pressor support and antibiotic therapy. We will renally dose all meds, avoid nephrotoxi ns. The patient, however, is hemodynamically unstable for renal replacement therapy at this time. We will continue to monitor closely. 5. Hypernatremia. The patient has free water deficit of approximately 2 liters. We will continue to do aggressive IV hydration and monitor. 6. Mineral bone disorder. The patient is hypercalcemic. Etiology is possibly due to acute kidney injury, immobilization. We will continue to monitor. We will also check a phosphorus level. 7. Transaminitis, elevated alkaline phosphatase. Etiology may be due to sepsis, medications versus acute liver pathology. Plan at this point is to monitor serial LFTs. We will attempt to get a CT scan of abdomen and pelvis once the patient is clinically stable. We will also place a GI consult f or evaluation. 8. Arrhythmia. The patient is currently bradycardic. We will continue to monitor. We will place a cardiology consult with Dr. Allen for evaluation. 9. Anemia of chronic disease with previous episodes of gastrointestinal bleed. We will continue to monitor hemoglobin and hematocrit levels, transfuse as needed. 10. Marked leukocytosis. Etiology is due to underlying sepsis. As stated above, we will continue current medical management with antibiotic therapy. Cultures have been sent. Monitor closely. 11. History of tongue cancer with likely metastasis to pelvis. Continue to monitor. 12. Dysphagia, status post percutaneous endoscopic gastrostomy. We will resume tube feeding once t he patient is clinically stable. 13. Multiple decubitus wounds. We will continue wound care. Place wound care consult. Continue o ffloading. 14. Advanced Parkinson's disease. Continue to monitor. 15. History of right-sided hydronephrosis secondary to pelvic mass. Continue to monitor. The patie nt was previously seen by urology and we will consider repeat consult. 16. Acute encephalopathy. Etiology is toxic metabolic. Please note I spent over 40 minutes of critical care time with this patient. Please note I left a message for patient's and will reattempt to communicate with her later tomichelle sandoval. Dictated By: JAX ANDRADE/CHELSI Conf#: [id number] DID#: [id number]
[2016-12-07] MEDS: AMIODARONE 200 MG TAB GTB SCH (10:39)
[2016-12-07] MEDS: COLLAGENASE 30 GM TUBE TOP SCH (10:39)
[2016-12-07] MEDS: PHENYLephrine 160 MG in DEXTROSE 5% 484 ML IV SCH ×2 (10:42→19:28)
--- NOTE | 2016-12-07 10:58 | CONS ---
DATE OF ADMISSION: 12/07/2016 DATE OF CONSULTATION: 12/07/2016 TYPE OF CONSULTATION: CARDIOLOGY/ICU CRITICAL CARE REASON FOR CONSULTATION: Shock, tachycardia, atrial fibrillation. CHIEF COMPLAINT: Shock, hypotension, respiratory failure. HISTORY OF PRESENT ILLNESS: Thank you for this referral. History obtained from extensive review of the old chart and discussion with multiple physicians and staff. The patient is unable to provide history to me. This is an unfortunate 76-year-old gentleman who was transferred from [place] to ICU because of above. The patient has been in [place] for a long time. Has continued to show respirator y failure as well as hypotension and shock. ABG showed pH of 7.1 with pCO2 of 61, and the patient h ad to be intubated and transferred to ICU. Currently, he is maxed out on Levophed as well as Ludwin-Sy nephrine drip and hypotensive in the ICU. He has had paroxysmal atrial fibrillation mostly remains in sinus rhythm but has converted back to atrial fibrillation. Heart rate overall at this point is under good control. PAST MEDICAL HISTORY: History of Parkinson disease, history of dysphagia status post PEG placement, history of tongue cancer status post resection. History of multiple falls with subdural hematoma o n the right side, history of meningioma, history of prostate cancer status post TURP, history of par oxysmal atrial fibrillation, hypertension, history of respiratory failure, severe encephalopat hy. CT in the past. SOCIAL HISTORY: Does not smoke or drink. Has been in the hospital for a long time in different [facility]. MEDICATIONS: Medical reconciliation, personally reviewed. ALLERGIES: PENICILLIN, CODEINE, HYDROCODONE, MORPHINE, . FAMILY HISTORY: No reported early coronary artery disease. REVIEW OF SYSTEMS: As above-mentioned, unable to obtain history. CODE STATUS: Currently still FULL CODE. PHYSICAL EXAMINATION: VITAL SIGNS: Temperature 96.9, heart rate is 92, blood pressure 101/70, respiratory rate of 38, sat urating 100%. HEENT: Normocephalic, atraumatic. Status post intubation on the vent. Eyes do not track, but duffy s have corneal reflex. CARDIOVASCULAR: Irregularly irregular. Systolic murmur. PULMONARY: Diffuse rhonchi. GASTROINTESTINAL: Soft, status post percutaneous endoscopic gastrostomy placement. EXTREMITIES: With diffuse lower extremity edema. NEUROLOGIC: Lethargic, does not answer questions. Eyes are open; however, does not track or follow commands. LABORATORY: ABG shows pH of 7.1, pCO2 of 61, pO2 of 163, bicarbonate of 18.3. Sodium 150, potassiu m 4.4, BUN 119, creatinine 1.125, glucose 193. WBC of 62.3, hemoglobin 8.3, platelets of 5.33. Atr ial fibrillation with rapid ventricular response. Chest x-ray shows status post intubation, multiple right old rib fractures, status post cholecystect ilene. Has been progressive clear in the left lung base. No evidence of congestive heart failure. ASSESSMENT AND PLAN: 1. Severe sepsis with septic shock. 2. Hypoxemia and hypercapnic respiratory failure, status post intubation on the vent. 3. Severe encephalopathy. 4. Atrial fibrillation with episodes of paroxysmal heart rate, heart rate under control. 5. History of tongue cancer. 6. History of pelvic mass, probably related to metastasis. 7. Multiple decubitus ulcers. 8. Severe anemia. 9. History of GI bleeding. 10. History of prostate cancer. 11. History of encephalopathy. 12. Severe metabolic as well as respiratory acidosis. RECOMMENDATIONS: We will continue with the ICU care. Continue with the ventilator support. Progno sis is very poor. Heart rate currently remains stable. I will continue with the amiodarone p.o. A ntibiotic is managed as per internal medicine along with IDs recommendation as well. Pressors will be continued on Levophed and Ludwin-Synephrine drip. Will give digoxin as needed and tolerated. Low d ose will be given as needed to avoid digoxin toxicity, will check a digoxin level as well. Prognosi s is poor, but will continue to closely monitor in the ICU for the time being and code status curren tly FULL CODE per discussion with the family, with again. More than 39 minutes of critical care time was spent in management of this patient excluding any pro cedures. Dictated By: KATIE BURR/CHELSI Conf#: [id number] DID#: [id number] CC: JAX SLATER DO;*EndCC*
--- NOTE | 2016-12-07 11:13 | CONS ---
Date/Time of Note Date/Time of Note DATE: 12/07/16 TIME: 11:08 Assessment/Plan Assessment/Plan Additional Assessment/Plan Chest x-ray was reviewed from today which is essentially clear. Endotracheal tube is at an adequate level. Ventilator settings; AC of 20, tidal volume 450, PEEP of 0, 50% FiO2. Patient is on phenylephrine drip at 300 mics per minute. Assessment recommendations; 1. Patient admitted for sepsis, etiology possibly is UTI versus decubitus ulcers. 2. Hyponatremia, patient currently on free water replacement. 3. Severe acidosis which is combined metabolic as well as respiratory. 4. Multiple other comorbidities including advanced dementia, advanced Parkinson disease, COPD, atrial fibrillation, CVA prostate, cancer of the tongue with metastasis. Continue current supportive care. Will obtain a repeat ABG. Further recommendations to be made once ABGs obtained. Prognosis is very poor. About 35 minutes of critical care time was spent evaluating the patient. Consultation Date/Type/Reason Admit Date/Time Dec 07, 2016 at 01:03 Date of Consultation: Dec 07, 2016 Type of Consultation: Pulmonary/critical care Reason for Consultation Pulmonary consultations requested for respiratory failure. History presenting any; Mr. Vera is a 76-year-old white male who was at [facility] for rehabilitation as well as for treatment of his severe underlying COPD as well as multiple other medical problems. Last night the patient became unstable became hypotensive and became severely acidotic patient was requested to be transferred to ICU where he was intubated by the ER physician. Because of underlying advanced dementia patient is unable to give any history whatsoever and this is his underlying baseline mental status. Past medical history; 1. Chronic respiratory failure however patient maintained on room air. 2. History of lung cancer with metastasis. 3. Prior history of tracheostomy. 4. G-tube placement. 5. Atrial ablation. 6. History of right hydronephrosis. 7. Prostate cancer. 8. Advanced Parkinson's disease. 9. COPD. Medications; were reviewed. Allergies; are to penicillin, codeine, morphine. Social history; patient has a remote history of smoking. Family history; patient is has a supportive . 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 Review of systems; currently unable to be obtained. General exam; elderly male, orally intubated, unresponsive. Exam/Review of Systems Vital Signs Vitals Vital Signs Date Time Temp Pulse Resp B/P Pulse Ox O2 Delivery O2 Flow Rate FiO2 12/07/16 10:15 105 40 108/86 100 12/07/16 10:00 Mechanical Ventilator 12/07/16 09:00 50 12/07/16 08:00 96.7 Intake and Output 12/06/16 12/06/16 12/07/16 15:00 23:00 07:00 Intake Total 2609.375 ml Output Total 35 ml Balance 2574.375 ml Exam HEENT examination; supple neck, no JVD. No lymphadenopathy. Midline trachea. There is a well-healed tracheostomy scar. There is bilateral corneal clouding. Patient has multiple carious teeth. Chest examination; diminished but clear breath sounds. S1-S2 audible, irregular rhythm. No murmurs. Abdomen examination; soft, G-tube in place. No organomegaly. Bowel sounds audible. Extremity exam is; no peripheral edema. Patient does have contractures involving all 4 extremities. LAWN [employer] examination; patient is unresponsive. Results Result Diagram: 12/07/16 0552 12/07/16 0552 Results 24 hrs Laboratory Tests Test 12/07/16 01:47 12/07/16 03:05 12/07/16 05:52 Blood Gas Specimen Source Blood arterial Arterial Blood Date Drawn 12/07/2016 3:57:02 AM Arterial Blood pH (Temp corrected) 7.101 *L Arterial Blood pCO2 (Temp correct) 61.2 H Arterial Blood pO2 (Temp corrected) 163.1 H Arterial Blood HCO3 18.6 L Arterial Blood Base Excess -10.9 L Arterial Blood Oxygen Saturation 98.3 Eric Test N/A Arterial Blood Gas Puncture Site LB Arterial Blood Carboxyhemoglobin 0.2 Arterial Blood Methemoglobin 0.4 Blood Gas A-a O2 Differential 488.7 H Oxyhemoglobin Percent 97.7 Total Hemoglobin 9.7 L Blood Gas Temperature 37.0 Blood Gas Respiration Rate 14.0 Blood Gas Actual Respiration Rate 14 Blood Gas Modality VENT - AC FiO2 100.0 Blood Gas Tidal Volume 450.0 Blood Gas Low PEEP Setting 0 Blood Gas Inspiratory Pressure 20.0 Blood Gas Critical Value Read Back Jazz ARNETT RN Blood Gas Notified Whom TK Blood Gas Notified Time 12/07/2016 4:35:13 AM White Blood Count 44.7 #H 62.3 #H Red Blood Count 2.44 L 2.76 L Hemoglobin 7.3 L 8.3 L Hematocrit 25.1 L 28.9 L Mean Corpuscular Volume 102.9 H 104.7 H Mean Corpuscular Hemoglobin 29.9 30.1 Mean Corpuscular Hemoglobin Concent 29.1 L 28.7 L Red Cell Distribution Width 16.6 H 16.9 H Platelet Count 394 533 #H Mean Platelet Volume 11.4 H 11.8 H Neutrophils % 81.0 H 88.0 H Band Neutrophils % 11.0 H 4.0 Lymphocytes % 2.0 L 8.0 L Monocytes % 4.0 Eosinophils % Myelocytes % 2.0 H Neutrophils # 36.2 H 54.8 H Lymphocytes # 0.9 5.0 H Monocytes # 1.8 H Eosinophils # Myelocytes # 0.9 Sodium Level 159 H 150 H Potassium Level 4.8 4.4 Chloride Level 125 H 122 H Carbon Dioxide Level 22 17 L Anion Gap 17 H 15 Blood Urea Nitrogen 125 #H 119 H Creatinine 1.29 H 1.25 H Glucose Level 86 193 # Calcium Level 10.3 H 10.5 H Total Bilirubin 0.1 L Direct Bilirubin 0.00 Indirect Bilirubin 0.1 Aspartate Amino Transf (AST/SGOT) 213 #H Alanine Aminotransferase (ALT/SGPT) 138 H Alkaline Phosphatase 163 H Troponin I 0.057 0.104 Total Protein 5.3 L Albumin 2.0 L Globulin 3.30 H Albumin/Globulin Ratio 0.60 Hypochromasia 1+ Magnesium Level 2.7 H Medications Medications Current Medications Enoxaparin Sodium (Lovenox) 30 mg DAILY SC ; Start 12/07/16 at 09:00 Ondansetron HCl (Zofran Inj) 4 mg Q6H PRN IV NAUSEA AND/OR VOMITING; Start at 02:00 Pantoprazole 40 mg 40 mg DAILY@06 IV Last administered on 12/07/16 07:12; Admin Dose 40 MG; Start 12/07/16 at 06:00 Sodium Bicarbonate 100 meq/Dextrose 1,000 ml @ 75 mls/hr [id number] IV Last administered on 12/07/16 03:37; Admin Dose 75 MLS/HR; Start 12/07/16 at 02:45 Norepinephrine 16 mg/Dextrose 500 ml @ 1.87 mls/hr TITRATE IV Last administered on 12/07/16 03:54; Admin Dose 9.37 MLS/HR; Start 12/07/16 at 03:00 Phenylephrine HCl/ Dextrose (Ludwin-Syneph/D5W) 500 ml @ 75 mls/hr TITRATE IV Last administered on 12/07/16 09:48; Admin Dose 225 MLS/HR; Start 12/07/16 at 03:00; Stop 12/07/16 at 12:00 Amiodarone HCl (Cordarone) 400 mg DAILY GTB Last administered on 12/07/16 10: 39; Admin Dose 400 MG; Start 12/07/16 at 09:00 Collagenase (Santyl) 1 applic DAILY TOP Last administered on 12/07/16 10:39; Admin Dose 1 APPLIC; Start 12/07/16 at 09:30 Collagenase 1 applic 1 applic PRN PRN TOP WOUND USE; Start 12/07/16 at 08:30 Levofloxacin/ Dextrose 100 ml @ 100 mls/hr Q48H IVPB ; Start 12/07/16 at 08:30 Vancomycin HCl 750 mg/Sodium Chloride 150 ml @ 75 mls/hr Q48H IVPB ; Start at 10:00 Phenylephrine HCl 160 mg/Dextrose 500 ml @ 18.75 mls/ hr TITRATE IV Last administered on 12/07/16 10:42; Admin Dose 56.25 MLS/HR; Start 12/07/16 at 11: 00 Norepinephrine/ Dextrose (Levophed/D5W) 250 ml @ 0.46 mls/hr TITRATE IV ; Start 12/07/16 at 09:30 WERNER CHURCH Dec 07, 2016 11:13
[2016-12-07] MEDS: LEVOFLOXACIN 500MG/D5W (PMX) 100 ML IVPB SCH (11:37)
[2016-12-07 12:42] LABS: AADO2 Arterial 224.9 mmHg (7.0-24.0); Allen Test ACCEPTAB; Arterial Base Excess -10.9 mmol/L (-3.0-3); Arterial COHb 0.3 % (0.0-3.0); Arterial Fraction of Oxyhgb 95.1 % (93.0-99.0); Arterial HCO3 15.5 mmol/L (22.0-26.0); Arterial MetHb 0.6 % (0.0-1.5); Arterial Total Hemglobin 8.6 g/dl (12.0-18.0); Blood Gas Low PEEP Setting 0 cmH2O; MODE VENT - AC
[2016-12-07] MEDS: NORepinephrine 32 MG in DEXTROSE 5% 218 ML IV SCH (13:10)
[2016-12-07] MEDS: VASOPRESSIN 60 UNIT in DEXTROSE 5% 57 ML IV SCH ×2 (14:00→18:14)
[2016-12-07] MEDS: MIDAZOLAM (DRIP) 50 mg/50 mL 50 ML IV SCH (14:31)
[2016-12-07] MEDS: FENTAnyl (DRIP) 1000 mcg/100mL 100 ML IV SCH (14:31)
[2016-12-07 16:22] LABS: AADO2 Arterial 231.8 mmHg (7.0-24.0); Allen Test ACCEPTAB; Arterial Base Excess -11.2 mmol/L (-3.0-3); Arterial COHb 0.3 % (0.0-3.0); Arterial Fraction of Oxyhgb 94.6 % (93.0-99.0); Arterial HCO3 14.9 mmol/L (22.0-26.0); Arterial MetHb 0.4 % (0.0-1.5); Arterial Total Hemglobin 9.4 g/dl (12.0-18.0); Blood Gas Low PEEP Setting 0 cmH2O; MODE VENT - AC
--- NOTE | 2016-12-07 17:25 | CONS ---
DATE OF ADMISSION: 12/07/2016 DATE OF CONSULTATION: 12/07/2016 INFECTIOUS DISEASE CONSULTATION REASON FOR CONSULTATION: Antibiotic management. HISTORY OF PRESENT ILLNESS: Jay Vera is a 76-year-old male who comes in with septic shock and respiratory failure. His problems include: 1. Advanced Parkinson's dementia. 2. Supranuclear palsy. 3. Metastatic CA of the tongue. 4. History of pelvic mass, presumed to be metastatic disease. 5. Depression. 6. Subdural hematoma. 7. History of meningioma. 8. Prostate carcinoma. 9. Dysphagia status post G-tube placement. 10. Multiple decubitus wounds. 11. Atrial fibrillation. 12. Arrhythmia. 13. Right-sided hydronephrosis. 14. History of GI bleed. 15. History of neurogenic bladder. 16. History of diastolic heart failure. 17. Previous history of acute kidney injury/ATN. The patient presents to [facility] Intensive Care Unit from [facility] whe re apparently last night he was noted to be markedly hypotensive and bradycardic. The patient was g iven fluid challenge, placed on pressor support, and intubated. He was then transferred to the ICU at [facility]. He has been hypotensive despite pressor support. PAST MEDICAL HISTORY: Essentially as outlined. PAST SURGICAL HISTORY: Status post G-tube placement, status post surgical debridement of wounds. FAMILY HISTORY: Noncontributory. SOCIAL HISTORY: Does not smoke, drink, or abuse drugs. ALLERGIES: NONE TO PENICILLIN, SULFA, OR FOODS. MEDICATIONS: Per chart. REVIEW OF SYSTEMS: As per HPI. PHYSICAL EXAMINATION: GENERAL: The patient is a chronically ill, cachectic male who is obtunded. VITAL SIGNS: Stable. He is afebrile. SKIN: Without generalized rash. HEENT: Bitemporal wasting. NECK: Supple. LYMPH NODES: None palpable. CHEST: Decreased breath sounds at the bases with occasional rhonchi. HEART: Without murmur or gallop. ABDOMEN: Soft, nontender. G-tube is present without exudate or induration. EXTREMITIES: Without cyanosis, clubbing, or edema. He has muscle wasting bilaterally. RECTAL AND GENITAL: Deferred. NEUROLOGIC: The patient is obtunded. Moves extremities. He has numerous decubitus wounds on his s acrum, stage IV, noted. ANCILLARY LABORATORY DATA: White count is 16.3, H and H of 8.3 and 28.9, platelet count 533,000. B UN and creatinine 19/1.25. AST and ALT are elevated at 313 and 138, alkaline phosphatase 163. Ches t x-ray shows an ET tube in place. He has no rib fractures status post cholecystectomy. IMPRESSION AND PLAN: The patient comes in now intubated on a respirator with a G-tube with septic s hock, possibly pneumonia, possible decubitus wounds, possible urinary tract infection. His chest x- ray shows interval placement of an endotracheal tube, multiple old right rib fracture deformities, s tatus post cholecystectomy. Cultures are pending. White count today is 62,300. BUN and creatinine are 119/1.25. The patient was placed on vancomycin, vasopressin, and Levaquin. Blood cultures hav e been done, I believe. If not, we will check it out. We have to consider C. difficile if he is gan ving any diarrhea. We will check with the nurses. He was seen in consultation by Dr. Bradley. I lizy l dictate my findings to Dr. Varma and Dr. Allen and Dr. Bradley. Dictated By: MICHAEL MONAHAN MD, JD/CHELSI Conf#: [id number] DID#: [id number]
[2016-12-07] MEDS: SODIUM BICARBONATE (IV ADD) 150 MEQ in DEXTROSE 5% 850 ML IV SCH (17:58)
--- NOTE | 2016-12-07 19:20 | PN ---
DATE: 12/07/2016 HISTORY OF PRESENT ILLNESS: This patient is a 76-year-old male who is known to me from I have been following him at [facility]. The patient is known to have a history of prostate ca ncer, status post radiation, also has laryngeal cancer, status post surgery and tracheostomy. The p atmejia has a pelvic mass that was initially biopsied at [facility], and they thought that it may be a urothelial cancer. However, patient was then seen at [facility], and they were not sure, a nd the pelvic mass could be from the tongue cancer, but again the pathology was not clear. The jose ent was admitted to [place] for further care. It was very difficult to even try to put a Cruz momo ter for him because of the pelvic mass and the prostate cancer, so we ended inserting a suprapubic t ube, and over time, we increased the size from 12-Tanzanian to 16-Tanzanian, and now he has, I think, 18-F rench catheter. The suprapubic tube is draining well. OBJECTIVE: VITAL SIGNS: His temperature is 97.6, the blood pressure is 84/59, the pulse is 70, respirations 24 . GENITOURINARY: The suprapubic tube, again, is draining well, and the urine is clear. Few days back , he did have hematuria, but that is clear, and there is no leakage around the suprapubic tube. LABORATORY DATA: His CBC shows a white count of 62.3, hemoglobin 8.3, hematocrit 28.9. The BUN is 119, creatinine 1.25. IMPRESSION: 1. Prostate cancer, status post radiation. 2. Bladder outlet obstruction. The patient does have a pelvic mass. The prior biopsies were not conclusive as to where is this can cer coming from, but in the patient's condition, there is no plan on doing anything to that. As far as urology is concerned, we just have the suprapubic tube in place and change it as needed and/or e very 2 to 3 weeks and if there is any symptomatic infection, treat the infection. Dictated By: SERJIO JEFFERSON/CHELSI Conf#: [id number] DID#: [id number]
[2016-12-08] VITALS (103 sets, daily range): BP systolic 86–133; BP diastolic 31–62; PULSE 71–97; RESP 24–27
[2016-12-08] MEDS: SODIUM BICARBONATE (IV ADD) 150 MEQ in DEXTROSE 5% 850 ML IV SCH ×5 (01:04→23:33)
[2016-12-08] MEDS: ALBUTEROL 18 GM INHALER INH SCH ×6 (01:36→21:28)
[2016-12-08] MEDS: MIDAZOLAM (DRIP) 50 mg/50 mL 50 ML IV SCH (02:29)
[2016-12-08] MEDS: PHENYLephrine 160 MG in DEXTROSE 5% 484 ML IV SCH ×3 (04:26→23:36)
[2016-12-08 04:41] LABS: ADD SCAN DIFF NO
[2016-12-08 05:05] LABS: CREATININE 1.54 mg/dl (0.61-1.24)
[2016-12-08 05:06] LABS: PHOSPHORUS 8.3 mg/dl (2.5-4.9)
[2016-12-08 05:07] LABS: CALCIUM 8.8 mg/dl (8.4-10.2); MAGNESIUM 2.1 mg/dl (1.7-2.5)
[2016-12-08 05:10] LABS: ABNORMAL IP MESSAGE 1; HEMATOCRIT 21.7 % (42.0-52.0); MEAN CORPUSCULAR HEMOGLOBIN 29.8 pg (29.0-33.0); MEAN CORPUSCULAR HGB CONC 29.5 g/dl (32.0-37.0); MEAN CORPUSCULAR VOLUME 100.9 fl (82.0-101.0); MEAN PLATELET VOLUME 12.4 fl (7.4-10.4); PLATELET COUNT 320 10^3/UL (140-415); RED BLOOD COUNT 2.15 10^6/ul (4.70-6.10); RED CELL DISTRIBUTION WIDTH 16.6 % (11.5-14.5); WHITE BLOOD COUNT 52.6 10^3/ul (4.8-10.8)
[2016-12-08] MEDS: PANTOPRAZOLE 40 MG INJ IV SCH (05:11)
[2016-12-08 05:15] LABS: HEMOGLOBIN 6.4 g/dl (14.0-18.0)
[2016-12-08] MEDS ORDERED: VANCOMYCIN 750 MG in SOD CHLORIDE 0.9% 150 ML IVPB SCH (06:00)
[2016-12-08] MEDS ORDERED: SOD CHLORIDE 0.9% 250 ML IV* ONE (06:57)
[2016-12-08] MEDS: NORepinephrine 32 MG in DEXTROSE 5% 218 ML IV SCH ×2 (07:13→23:35)
--- NOTE | 2016-12-08 08:51 | PN ---
DATE: 12/08/2016 CARDIOLOGY FOLLOWUP SUBJECTIVE: Discussed with the staff. Rhythm strip was reviewed. The patient has converted back t o sinus and has been in and out of atrial fibrillation and sinus rhythm. Currently in sinus, with f requent PACs. The patient remains intubated, on the vent, nonresponsive. He has been severely hypo tensive, requires multiple pressors, including vasopressin, Ludwin-Synephrine and Levophed now. MEDICATIONS: Reviewed, as per medication reconciliation, personally reviewed. PHYSICAL EXAMINATION: VITAL SIGNS: Temperature 97.8, heart rate of 74, blood pressure 100/40, respiratory rate of 24, sat urating 100%. HEENT: Normocephalic, atraumatic. GENERAL: A thin gentleman. Status post intubation, on the vent. EYES: Are open; however, does not track. CARDIOVASCULAR: Regular rate and rhythm, with a systolic murmur. PULMONARY: With rhonchi, diffuse. GASTROINTESTINAL: Soft, nontender. Status post PEG placement. No rebound or guarding. EXTREMITIES: Positive for edema bilaterally. NEUROLOGIC: No response to verbal or painful stimuli. PSYCHIATRIC: Appears to be calm, but unable to really assess. LABORATORY: Shows a WBC of 52.6, hemoglobin 6.4, platelets of 320. Sodium 141, potassium 4, BUN of 118, creatinine 1.54, glucose of 82. Lactic acid is 4.3. Blood culture so far are negative x1 day . ASSESSMENT AND PLAN: 1. Severe sepsis. 2. Septic shock. 3. Acute on chronic hypoxemic hypercapnic respiratory failure, status post intubation, on the vent 4. Paroxysmal atrial fibrillation. Currently back in sinus rhythm, with very frequent PACs, as wel l as atrial fibrillation. 5. Acute on chronic renal failure. 6. Electrolyte abnormality and hypernatremia that has been corrected better today. 7. Severe encephalopathy. 8. History of gastrointestinal bleed. 9. Severe anemia. 10. Multiple decubitus ulcers. 11. 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 12. Metabolic and respiratory acidosis. 13. History of prostate carcinoma. RECOMMENDATIONS: Continue with the ICU care. Multiple pressors will be continued. Code status was discussed with the and she still wants the patient to be FULL CODE. Antibiotic to be managed as per ID recommendations. Vent support will be continued. Amiodarone will be continued at the cur rent dose for now. Electrolytes will be corrected as needed. Prognosis is guarded though. No anti coagulation is being given due to the patient's severe anemia and recurrent GI bleeds. Will conside r transfusion as well; however, prognosis is extremely guarded and poor. Will continue with the ICU care. More than 37 minutes of critical care time was spent in the management and treating of this patient, excluding any procedures. Dictated By: KATIE BURR/CHELSI Conf#: [id number] DID#: [id number] CC: JAX SLATER DO;*EndCC*
[2016-12-08 08:53] LABS: AADO2 Arterial 199.4 mmHg (7.0-24.0); Allen Test ACCEPTAB; Arterial Base Excess -9.7 mmol/L (-3.0-3); Arterial COHb 0.3 % (0.0-3.0); Arterial Fraction of Oxyhgb 96.4 % (93.0-99.0); Arterial HCO3 16.6 mmol/L (22.0-26.0); Arterial MetHb 0.7 % (0.0-1.5); Arterial Total Hemglobin 7.1 g/dl (12.0-18.0); Blood Gas Low PEEP Setting 0 cmH2O; MODE VENT - AC
[2016-12-08] MEDS: ENOXAPARIN 30 MG/0.3 ML SYG SC SCH (09:00)
--- NOTE | 2016-12-08 09:41 | PN ---
DATE: 12/08/2016 SUBJECTIVE: The patient remains critically ill. The patient is on 3 pressors on bicarbonate drip. The patient's urinary output has been minimal at 30 to 40 mL. The patient is on full ventilatory s upport. I spoke to patient's again, informing her of her critical nature and extremely poor prognosis a nd high mortality expectation for her . She is aware. She still wishes to proceed with full m edical management. OBJECTIVE: VITAL SIGNS: Blood pressure 100/40, respirations 24, pulse 74, temperature 98.7. GENERAL: The patient is critically ill, cachectic, weak, frail. HEENT: Head is normocephalic. Pupils are reactive. NECK: Supple. HEART: Irregularly irregular. LUNGS: Show diminished breath sounds at the base. ABDOMEN: Soft, nontender to palpation. Positive PEG. EXTREMITIES: Negative for clubbing, cyanosis. No edema. DERMATOLOGIC: No rashes. Positive wound. NEUROLOGIC: The patient is obtunded. MUSCULOSKELETAL: No joint effusions. LABORATORY DATA: Showed sodium 141, potassium 4.0, chloride 105, BUN 118, creatinine 1.54. White c ount is 52, hemoglobin 6.4, hematocrit 21.7, platelet count 320. The patient's blood cultures have been reviewed. Lactic acid level 4.3. IMAGING: Chest x-ray from December 07 have been reviewed. ASSESSMENT AND PLAN: 1. Septic shock. Underlying source is likely multifactorial from decubitus wound, possible urinary , possible pneumonic. The patient is currently on 3 pressors, maxed out on IV fluids, ____ regimen antibiotics. At this point, continue current treatment plan. Continue to follow up with Infectious Disease for further recommendations. Will follow up with also Pulmonary Critical care for further recommendations. Monitor closely. 2. Ventilator dependent respiratory failure. Vent settings have been reviewed. ABG has been revie wed. Continue to monitor. Follow up with Pulmonary. 3. Oliguric acute kidney injury on top of chronic kidney disease with previous baseline creatinine of 0.75 mg/dL. Etiology is secondary to acute tubular necrosis due to septic acute kidney injury an d ischemic hypoperfusion. The patient remains in injury phase of acute tubular necrosis. The patie nt is hemodynamically unstable for hemodialysis at this time, I discussed in detail with the patient 's , she has been made aware. Will continue to monitor. Continue supportive care, renally dose all meds, continue treating underlying septic shock. Continue pressor support, maintain MAP above 65. Continue IV hydration. 4. Mixed acid base disorder. The patient has had anion gap metabolic acidosis with a possible meta bolic alkalosis. Etiology is secondary to acute kidney injury, lactic acidosis. Plan is to check a n ABG. The patient remains on bicarbonate drip. Will continue at this time. 5. Acute encephalopathy on top of chronic dementia. Etiology is toxic metabolic. Continue to [facility]. 6. Anemia. The patient had a drop of hemoglobin 6.4 g/dL. Etiology is possibly due to underlying sepsis, dilutional. No obvious evidence of gastrointestinal bleed. Will transfuse 2 units of PRBC, monitor H and H levels closely. 7. Mineral bone disorder. Monitor calcium and phosphorus levels. 8. Atrial fibrillation, heart rate currently rate controlled. Continue to monitor. Follow up with cardiology. 9. Hydronephrosis, etiology secondary to pelvic mass. The patient is being followed by Dr. Kimbrough , appreciate his help with management. 10. Leukocytosis, etiology secondary to underlying sepsis. We will continue current antibiotic reg imen. 11. History of tongue cancer with possible metastasis to the pelvis. Continue to monitor. 12. Dysphagia, status post percutaneous endoscopic gastrostomy. Continue to monitor. 13. Multiple decubitus wounds. Will continue with wound care. Place a general surgical consult [facility] Dr. Vu for evaluation. 14. Transaminitis, elevated alkaline phosphatase, etiology is likely secondary to sepsis. Will con tinue to observe. Please note, I spent over 40 minutes of critical care time with this patient. Dictated By: JAX ANDRADE/CHELSI Conf#: [id number] DID#: [id number]
[2016-12-08] MEDS: AMIODARONE 200 MG TAB GTB SCH (09:43)
[2016-12-08] MEDS: COLLAGENASE 30 GM TUBE TOP SCH (09:43)
--- NOTE | 2016-12-08 10:11 | CONS ---
Date/Time of Note Date/Time of Note DATE: 12/08/16 TIME: 10:06 Assessment/Plan Assessment/Plan Additional Assessment/Plan Ventilator settings; AC of 24, tidal volume 500, PEEP of 0, 50% FiO2. Patient currently on phenylephrine drip at 300 mics per minute, fentanyl 50 mics per hour, Versed 2 mg/h, Levophed at 30 mics per minute. Next Assessment recommendations; 1. Patient admitted for severe sepsis and respiratory failure with profound hypotension due to sacral decubitus ulcers and UTI. 2. Advanced dementia. 3. Advanced Parkinson's disease. 4. Prior history of tracheostomy with subsequent decannulation in the past. 5. Anemia. 6. History of cardiac arrhythmia. 7. History of hydronephrosis on the right side. Discontinue Lovenox, transfuse 1 unit packed RBC. Continue other supportive measures. Prognosis is extremely poor. 36 minutes of critical care time was spent evaluating the patient.. Consultation Date/Type/Reason Admit Date/Time Dec 07, 2016 at 01:03 Initial Consult Date 12/07/16 Type of Consultation: Pulmonary/critical care 24 HR Interval Summary Free Text/Dictation Patient condition remains extremely critical. Requiring high-dose combination pressor support for blood pressure maintenance. Because of underlying severe dementia patient remains unresponsive which has been his underlying mental status for the last several months. General exam; elderly male, on ventilator, orally intubated, remains unresponsive. Exam/Review of Systems Vital Signs Vitals Vital Signs Date Time Temp Pulse Resp B/P Pulse Ox O2 Delivery O2 Flow Rate FiO2 12/08/16 08:00 74 12/08/16 06:30 24 100/40 100 Mechanical Ventilator 12/08/16 05:28 50 12/08/16 04:00 97.8 Intake and Output 12/07/16 12/07/16 12/08/16 15:00 23:00 07:00 Intake Total 2239.425 ml 1751.19 ml 1209.86 ml Output Total 50 ml 120 ml Balance 2239.425 ml 1701.19 ml 1089.86 ml Exam HEENT examination; supple neck, no JVD. No lymphadenopathy. Midline trachea. There is a well-healed healed tracheostomy scar. Patient has bilateral corneal opacities. Multiple carious teeth are present. Chest examination : diminished but clear breath sound. S1-S2 audible, no murmurs. Regular rhythm. Abdomen examination; soft, nondistended. G-tube in place. Bowel sounds are very sluggish. Extremity exam is; no peripheral edema. CONCRETE PRECAST MOULDER examination; patient remains unresponsive. Results Result Diagram: 12/08/16 0400 12/08/16 0400 Results 24 hrs Laboratory Tests Test 12/07/16 11:05 12/07/16 12:46 12/07/16 16:00 12/07/16 16:15 Blood Gas Specimen Source Blood arterial Blood arterial Arterial Blood Date Drawn 12/07/2016 12:25:55 PM 12/07/2016 4:00:43 PM Arterial Blood pH (Temp corrected) 7.243 *L 7.255 *L Arterial Blood pCO2 (Temp correct) 36.8 34.4 L Arterial Blood pO2 (Temp corrected) 90.2 H 86.0 Arterial Blood HCO3 15.5 L 14.9 L Arterial Blood Base Excess -10.9 L -11.2 L Arterial Blood Oxygen Saturation 96.0 95.3 Eric Test ACCEPTAB ACCEPTAB Arterial Blood Gas Puncture Site Right Radial Right Radial Arterial Blood Carboxyhemoglobin 0.3 0.3 Arterial Blood Methemoglobin 0.6 0.4 Blood Gas A-a O2 Differential 224.9 H 231.8 H Oxyhemoglobin Percent 95.1 94.6 Total Hemoglobin 8.6 L 9.4 L Blood Gas Temperature 37.0 37.0 Blood Gas Respiration Rate 20.0 24.0 Blood Gas Actual Respiration Rate 40 Blood Gas Modality VENT - AC VENT - AC FiO2 50.0 50.0 Blood Gas Tidal Volume 450.0 500.0 Blood Gas Low PEEP Setting 0 0 Blood Gas Critical Value Read Back L WILMAN CAPUTO RN Blood Gas Notified Whom MISAEL DON Blood Gas Notified Time 12/07/2016 12:42:24 PM 12/07/2016 4:19:28 PM Lactic Acid Level 3.9 H 4.3 *H Test 12/08/16 04:00 12/08/16 08:14 White Blood Count 52.6 H Red Blood Count 2.15 #L Hemoglobin 6.4 #*L Hematocrit 21.7 #L Mean Corpuscular Volume 100.9 Mean Corpuscular Hemoglobin 29.8 Mean Corpuscular Hemoglobin Concent 29.5 L Red Cell Distribution Width 16.6 H Platelet Count 320 # Mean Platelet Volume 12.4 H Neutrophils % Eosinophils % Neutrophils # Eosinophils # Sodium Level 141 Potassium Level 4.0 Chloride Level 105 # Carbon Dioxide Level 19 L Anion Gap 21 H Blood Urea Nitrogen 118 H Creatinine 1.54 H Glucose Level 82 # Calcium Level 8.8 Phosphorus Level 8.3 H Magnesium Level 2.1 Digoxin Level 1.0 Blood Gas Specimen Source Blood arterial Arterial Blood Date Drawn 12/08/2016 8:30:36 AM Arterial Blood pH (Temp corrected) 7.256 *L Arterial Blood pCO2 (Temp correct) 38.3 Arterial Blood pO2 (Temp corrected) 114.0 H Arterial Blood HCO3 16.6 L Arterial Blood Base Excess -9.7 L Arterial Blood Oxygen Saturation 97.4 Eric Test ACCEPTAB Arterial Blood Gas Puncture Site Right Radial Arterial Blood Carboxyhemoglobin 0.3 Arterial Blood Methemoglobin 0.7 Blood Gas A-a O2 Differential 199.4 H Oxyhemoglobin Percent 96.4 Total Hemoglobin 7.1 L Blood Gas Temperature 37.0 Blood Gas Respiration Rate 24.0 Blood Gas Actual Respiration Rate 24 Blood Gas Modality VENT - AC FiO2 50.0 Blood Gas Tidal Volume 500.0 Blood Gas Low PEEP Setting 0 Blood Gas Critical Value Read Back R RAMONA IQBAL Blood Gas Notified Whom JLD Blood Gas Notified Time 12/08/2016 8:52:24 AM Medications Medications Current Medications Enoxaparin Sodium (Lovenox) 30 mg DAILY SC ; Start 12/07/16 at 09:00 Ondansetron HCl (Zofran Inj) 4 mg Q6H PRN IV NAUSEA AND/OR VOMITING; Start at 02:00 Pantoprazole (Protonix Iv) 40 mg DAILY@06 IV Last administered on 12/08/16 05: 11; Admin Dose 40 MG; Start 12/07/16 at 06:00 Amiodarone HCl (Cordarone) 400 mg DAILY GTB Last administered on 12/08/16 09: 43; Admin Dose 400 MG; Start 12/07/16 at 09:00 Collagenase (Santyl) 1 applic DAILY TOP Last administered on 12/08/16 09:43; Admin Dose 1 APPLIC; Start 12/07/16 at 09:30 Collagenase 1 applic 1 applic PRN PRN TOP WOUND USE; Start 12/07/16 at 08:30 Levofloxacin/ Dextrose 100 ml @ 100 mls/hr Q48H IVPB Last administered on 12/07 11:37; Admin Dose 100 MLS/HR; Start 12/07/16 at 08:30 Vancomycin HCl 750 mg/Sodium Chloride 150 ml @ 75 mls/hr Q48H IVPB ; Start at 10:00 Phenylephrine HCl 160 mg/Dextrose 500 ml @ 18.75 mls/ hr TITRATE IV Last administered on 12/08/16 04:26; Admin Dose 56.25 MLS/HR; Start 12/07/16 at 11: 00 Norepinephrine 32 mg/Dextrose 250 ml @ 0.46 mls/hr TITRATE IV Last administered on 12/08/16 07:13; Admin Dose 14.06 MLS/HR; Start 12/07/16 at 09: 30 Fentanyl 100 ml @ 2.5 mls/hr TITRATE IV Last administered on 12/07/16 14:31; Admin Dose 2.5 MLS/HR; Start 12/07/16 at 14:00 Midazolam HCl 50 ml @ 1 mls/hr TITRATE IV Last administered on 12/08/16 02:29 ; Admin Dose 2 MLS/HR; Start 12/07/16 at 14:00 Vasopressin 60 unit/Dextrose 60 ml @ 1.2 mls/hr Q12H IV Last administered on 18:14; Admin Dose 1.2 MLS/HR; Start 12/07/16 at 14:00 Sodium Bicarbonate/ Dextrose (Na Bicarb/D5W) 1,000 ml @ 150 mls/hr Q6H40M IV Last administered on 12/08/16 08:31; Admin Dose 150 MLS/HR; Start 12/07/16 at 17:30 WERENR CHURCH Dec 08, 2016 10:11
[2016-12-08] MEDS ORDERED: NA BICARBONATE 8.4% 50 ML SYG IV ONE (10:30)
--- NOTE | 2016-12-08 12:38 | CONS ---
DATE OF ADMISSION: 12/07/2016 DATE OF CONSULTATION: REFERRING PHYSICIAN:Ary Varma DO HISTORY OF PRESENT ILLNESS: A 76-year-old male with a past medical history of Parkinson disease, Parkinson related dementia, tongue cancer, pelvic mass, prostate cancer, depression, meningioma stat us post PEG for dysphagia, multiple decubitus ulcers, atrial fibrillation, and rectal bleeding in th e past. The patient was transferred to the intensive care unit for hypotensive episode. The patien t was markedly hypotensive yesterday and bradycardic. He required intubation and pressor support an d was started on oral antibiotic. His hematocrit dropped down significantly to 21. There was no ev idence of GI bleeding. I talked to the staff. The G-tube aspirate was normal in color and there wa s no rectal bleeding. PAST MEDICAL HISTORY: As described. PAST SURGICAL HISTORY: PEG and debridement. MEDICATIONS: As per reconciliation list. ALLERGIES: NONE. PHYSICAL EXAMINATION VITALS: Stable. HEENT: Unremarkable. NECK: Supple, no thyromegaly, no lymphadenopathy. CARDIOVASCULAR: No murmur. LUNGS: The patient is on vent. ABDOMEN: Totally benign. G-tube in place. EXTREMITIES: No edema. CENTRAL NERVOUS SYSTEM: The patient is sedated. MEDICATIONS: I reviewed all the medication. He is on: 1. Vancomycin. 2. Fentanyl. 3. Vasopressin. 4. Norepinephrine. 5. Amiodarone. 6. Pantoprazole. 7. Levofloxacin. LABORATORY DATA: This morning, the hematocrit was 21, BUN is 118, creatinine is 1.54. IMPRESSION: 1. Septic shock. 2. Severe anemia. 3. Prerenal azotemia. 4. Prostate cancer. 5. Tongue cancer. 6. Parkinson's disease. 7. Dementia. 8. Respiratory failure. 9. Abnormal liver function tests. 10. Atrial fibrillation. 11. Hydronephrosis. PLAN: 1. At this point is to get a sonogram of the liver to make sure there is no mets, otherwise abnorma l LFT could be due to septic shock. 2. Continue all antibiotics, continue pressor support. Will transfuse the patient and I have discu ssed with staff if there is any evidence of GI bleeding, they should contact me. Dictated By: CHELE BRAUN/CHELSI Conf#: [id number] DID#: [id number]
[2016-12-08 13:40] LABS: LYMPHOCYTES # 2.1 10^3/ul (0.8-2.9); MONOCYTE # 2.1 10^3/ul (0.3-0.9)
[2016-12-08 13:42] LABS: HYPOCHROMASIA 1+
--- NOTE | 2016-12-08 13:44 | RADRPT ---
PROCEDURE: XR Chest. CLINICAL INDICATION: resp failure TECHNIQUE: Single frontal view of the chest was obtained. COMPARISON: Chest x-ray from 12/07/2016 FINDINGS: The endotracheal tube tip is 2.8 cm above the allyssa. The cardiomediastinal silhouette is unchanged. The aortic arch is calcified. There is increased right basilar atelectasis versus a developing i nfiltrate. The lungs are hyperexpanded. There is no significant pleural effusion or pneumothorax. Old right rib fracture deformities are again noted. IMPRESSION: 1. Increased right basilar atelectasis versus a developing infiltrate. 2. Endotracheal tube tip 2.8 cm above the allyssa. 3. Hyperexpanded lungs. RPTAT: JJ .Imer Juares MD, Date Time Electronically viewed and signed by .Imer Juares MD, on 12/08/2016 13:43 .A/
[2016-12-08] MEDS: NA BICARBONATE 650 MG TAB GTB SCH ×2 (13:52→21:21)
[2016-12-08] MEDS: VASOPRESSIN 60 UNIT in DEXTROSE 5% 57 ML IV SCH (14:08)
--- NOTE | 2016-12-08 15:30 | RADRPT ---
PROCEDURE: US Abdomen. CLINICAL INDICATION: Abdominal pain. TECHNIQUE: Multiple real-time images were acquired of the patient's right upper quadrant utilizing a high resolution transducer. The images were reviewed on a high-resolution PACS workstation. COMPARISON: CT of the abdomen and pelvis from 11/21/2016 FINDINGS: The liver measures 19.3 cm in size. Multiple hyperechoic lesions in the liver are seen the largest measuring 1.6 x 2 x 1.6 cm in size. A simple cyst is seen in the right hepatic lobe measuring 1.5 x 1.1 x 1.6 cm in size. The gallbladder is not identified. No intrahepatic biliary dilatation is seen. The common bile duct measures 10.3 mm in maximal dimension. The visualized portions of the pancre as are unremarkable. A trace amount of free fluid is identified. The right kidney is of normal size, and demonstrate normal echogenicity and morphology. The right k idney measures 3.3 x 6.3 x 5.4 cm. There are is moderate dilatation of the right collecting system. There are no perinephric fluid collections. There are no areas of increased echogenicity to sugge st nephrolithiasis. IMPRESSION: 1. Multiple there are lesions which may correspond to the previously noted liver lesions seen on th e CT the abdomen and pelvis. 2. Moderate right hydronephrosis which is seen on the prior CT of the abdomen pelvis. 3. Trace amount of free fluid. 4. Gallbladder not identified consistent with a prior cholecystectomy with likely physiologic commo n bile duct dilatation. RPTAT: HPN[facility] Physician Danisha Date Time Electronically viewed and signed by Physician Danisha on 12/08/2016 15:30 /
--- NOTE | 2016-12-08 15:43 | CONS ---
Date/Time of Note Date/Time of Note DATE: 12/08/16 TIME: 15:43 Assessment/Plan Assessment/Plan Chief Complaint/Hosp Course ID PROGRESS NOTE CURRENT ABX DAY #3 => Vanco IV + Levaquin s/p Merrem + Bactrim @ [facility] = on chronic ABX for chronic rectal fistula/ abscess 24H INTERVAL SUMMARY * Obtunded on the Vent, eyes open staring at ceiling non-tracking (+)Anasarca, large ascites * CHRONIC RECURRENT SEPSIS =WBC 52.6, HGB 6.4, Lactic acid 4.3, S.CR 1.54 * Cold shock w/Temp 96.7 on admit + significant leukocytosis = chronic recurrent issue * Patient with chronic hypoxic respiratory failure -- was being follow by Dr. Aguayo's ID consultants at [facility] == spouse desires aggressive medical interventions despite the multiple cor-morbid conditions and progressive debility -- PHYSICAL EXAMINATION: GENERAL: Cachectic, chronically debilitated, M orally intubated on pressors in the ICU HEENT: ETT/OGT secure NECK: Chronic hyperextended CHEST: Rise symmetrical/ course BS, rhonci on the Vent HEART: Pulse RRR ABDOMEN: Soft, peg EXTREMITIES: Muscle atrophy, gely prominences w/decub dsgs, wounds, skin tears : Urinary diversion (+)DIarrhea -> chronic rectal bleed chronic rectal fistula track/abscess SKIN: Mutiple decubs -- See wound photos ID ASSESSMENT 76 yo M admit with: 1. Advanced Parkinson's dementia w/depression, hx of meningioma, SDH, w/ supranuclear palsy, chronic encephalopathy 2. Metastatic CA of the tongue-> Hx of resection, chemo, XRT 3. Prostate Carcinoma 4. History of pelvic mass, presumed to be metastatic disease, near the area of the Prostate Gland 5. Obstructive uropathy due to pelvic mass w/chronic right hydronephrosis/ hydroureter 6. Urinary diversion per Dr. Kimbrough 7. Neurogenic bladder 8. Recurrent UTIs /hx of pyelonephritis 9. Dysphagia status post G-tube placement. 10. Aspiration syndrome w/recurrent aspiration pneumonitis and HCAP * 12/01 sputum cx (+)PSAR resistant to Quinolones 11. Hx of HTN, Atrial fibrillation, diastolic HF 12. Previous history of acute kidney injury/ATN. 13. History of GI bleed. 14. 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 Multiple decubitus wounds- STG III, Unstageable 16. Severe malnutrition, cachexia 17. Failure to thrive (-)MRSA Nares (-)VRE Screen 10/28 (+) CRE Screen 10/28 =(+)Carbapenemase resistant Enterobacteriaceae Stool INVASIVES: ETT, OGT, Peg, Suprapubic cath ABX ALLERGY: KNDA CURRENT ABX: CURRENT ABX DAY #3 => Vanco IV + Levaquin s/p Merrem + Bactrim @ [facility] = on chronic ABX for chronic rectal fistula/ abscess ID RECOMMENDATIONS 1. Continue ABX -> Chronic Aspiration Pneumonitis vs PNA, chronic rectal abscess , chronic wounds * -> Note patient has chronic rectal fistula w/chronic abscess and recurring rectal bleeding, he has already undergone prior surgical attempts to repair the rectal fistula tract with recurrence. * Patient has failed prior attempt to de-escalate ABX -- has remained on chronic ABX for months 2. Patient has poor prognosis with multiple-co morbidities -> Aggressive medical intervention continues 3. ABX will not reverse poor prognosis; rather have been used a means to prolong the end of life process, patient is now colonized with CRE 4. Promote ethic of futility and with dignity, rather than deterioration, suffering due to continued sepsis, wounds, invasives. . . * Critically ill with multi-organ failure patient is palliative/hospice care appropriate; nevertheless he remains on aggressive medical plan of care. Problems: Consultation Date/Type/Reason Admit Date/Time Dec 07, 2016 at 01:03 Initial Consult Date 12/07/16 Type of Consultation: ID Exam/Review of Systems Vital Signs Vitals Vital Signs Date Time Temp Pulse Resp B/P Pulse Ox O2 Delivery O2 Flow Rate FiO2 12/08/16 12:00 83 12/08/16 12:00 50 12/08/16 06:30 24 100/40 100 Mechanical Ventilator 12/08/16 04:00 97.8 Intake and Output 12/07/16 12/07/16 12/08/16 15:00 23:00 07:00 Intake Total 2239.425 ml 1751.19 ml 1209.86 ml Output Total 50 ml 125 ml Balance 2239.425 ml 1701.19 ml 1084.86 ml Results Result Diagram: 12/08/16 0400 12/08/16 0400 Results 24 hrs Laboratory Tests Test 12/07/16 16:00 12/07/16 16:15 12/08/16 04:00 12/08/16 08:14 Blood Gas Specimen Source Blood arterial Blood arterial Arterial Blood Date Drawn 12/07/2016 4:00:43 PM 12/08/2016 8:30:36 AM Arterial Blood pH (Temp corrected) 7.255 *L 7.256 *L Arterial Blood pCO2 (Temp correct) 34.4 L 38.3 Arterial Blood pO2 (Temp corrected) 86.0 114.0 H Arterial Blood HCO3 14.9 L 16.6 L Arterial Blood Base Excess -11.2 L -9.7 L Arterial Blood Oxygen Saturation 95.3 97.4 Eric Test ACCEPTAB ACCEPTAB Arterial Blood Gas Puncture Site Right Radial Right Radial Arterial Blood Carboxyhemoglobin 0.3 0.3 Arterial Blood Methemoglobin 0.4 0.7 Blood Gas A-a O2 Differential 231.8 H 199.4 H Oxyhemoglobin Percent 94.6 96.4 Total Hemoglobin 9.4 L 7.1 L Blood Gas Temperature 37.0 37.0 Blood Gas Respiration Rate 24.0 24.0 Blood Gas Modality VENT - AC VENT - AC FiO2 50.0 50.0 Blood Gas Tidal Volume 500.0 500.0 Blood Gas Low PEEP Setting 0 0 Blood Gas Critical Value Read Back FARIDA CAPUTO RN Blood Gas Notified Whom [place] JLD Blood Gas Notified Time 12/07/2016 4:19:28 PM 12/08/2016 8:52:24 AM Lactic Acid Level 4.3 *H White Blood Count 52.6 H Red Blood Count 2.15 #L Hemoglobin 6.4 #*L Hematocrit 21.7 #L Mean Corpuscular Volume 100.9 Mean Corpuscular Hemoglobin 29.8 Mean Corpuscular Hemoglobin Concent 29.5 L Red Cell Distribution Width 16.6 H Platelet Count 320 # Mean Platelet Volume 12.4 H Neutrophils % 59.0 Band Neutrophils % 33.0 H Lymphocytes % 4.0 L Monocytes % 4.0 Eosinophils % Neutrophils # 31.0 H Lymphocytes # 2.1 Monocytes # 2.1 H Eosinophils # Hypochromasia 1+ Sodium Level 141 Potassium Level 4.0 Chloride Level 105 # Carbon Dioxide Level 19 L Anion Gap 21 H Blood Urea Nitrogen 118 H Creatinine 1.54 H Glucose Level 82 # Calcium Level 8.8 Phosphorus Level 8.3 H Magnesium Level 2.1 Digoxin Level 1.0 Blood Gas Actual Respiration Rate 24 Medications Medications Current Medications Ondansetron HCl (Zofran Inj) 4 mg Q6H PRN IV NAUSEA AND/OR VOMITING; Start at 02:00 Pantoprazole (Protonix Iv) 40 mg DAILY@06 IV Last administered on 12/08/16 05: 11; Admin Dose 40 MG; Start 12/07/16 at 06:00 Amiodarone HCl (Cordarone) 400 mg DAILY GTB Last administered on 12/08/16 09: 43; Admin Dose 400 MG; Start 12/07/16 at 09:00 Collagenase (Santyl) 1 applic DAILY TOP Last administered on 12/08/16 09:43; Admin Dose 1 APPLIC; Start 12/07/16 at 09:30 Collagenase 1 applic 1 applic PRN PRN TOP WOUND USE; Start 12/07/16 at 08:30 Levofloxacin/ Dextrose 100 ml @ 100 mls/hr Q48H IVPB Last administered on 12/07 11:37; Admin Dose 100 MLS/HR; Start 12/07/16 at 08:30 Vancomycin HCl 750 mg/Sodium Chloride 150 ml @ 75 mls/hr Q48H IVPB ; Start at 10:00 Phenylephrine HCl 160 mg/Dextrose 500 ml @ 18.75 mls/ hr TITRATE IV Last administered on 12/08/16 14:07; Admin Dose 48.75 MLS/HR; Start 12/07/16 at 11: 00 Norepinephrine 32 mg/Dextrose 250 ml @ 0.46 mls/hr TITRATE IV Last administered on 12/08/16 07:13; Admin Dose 14.06 MLS/HR; Start 12/07/16 at 09: 30 Fentanyl 100 ml @ 2.5 mls/hr TITRATE IV Last administered on 12/07/16 14:31; Admin Dose 2.5 MLS/HR; Start 12/07/16 at 14:00 Midazolam HCl 50 ml @ 1 mls/hr TITRATE IV Last administered on 12/08/16 02:29 ; Admin Dose 2 MLS/HR; Start 12/07/16 at 14:00 Vasopressin 60 unit/Dextrose 60 ml @ 1.2 mls/hr Q12H IV Last administered on 14:08; Admin Dose 1.8 MLS/HR; Start 12/07/16 at 14:00 Sodium Bicarbonate/ Dextrose (Na Bicarb/D5W) 1,000 ml @ 150 mls/hr Q6H40M IV Last administered on 12/08/16 08:31; Admin Dose 150 MLS/HR; Start 12/07/16 at 17:30 Sodium Bicarbonate (Sodium Bicarbonate Tab) 650 mg TID GTB Last administered on 12/08/16 13:52; Admin Dose 650 MG; Start 12/08/16 at 13:00 CEASAR VIEYRA NP Dec 08, 2016 15:43
--- NOTE | 2016-12-08 17:12 | RADRPT ---
Vent Rate: 85 bpm RR Interval: 0 msec NE Interval: 0 msec QRS Duration: 92 msec QT Interval: 332 msec QTC Interval: 395 msec P-R-T [place]: 0 - 73 - 94 degrees Atrial fibrillation Nonspecific ST and T wave abnormality , probably digitalis effect Abnormal ECG Electronically Signed By: Abiel Elizondo [id number]
--- NOTE | 2016-12-08 17:37 | PN ---
DATE: 12/08/2016 SUBJECTIVE: The patient himself is not capable of giving any complaints. He, however, does have a history of prostate cancer status post radiation. History of tongue cancer and status post surgery. He has a tracheostomy and the patient does have a pelvic mass which is cancerous, but the origin o f it is not quite clear. It could be because of the tongue cancer, but still also some report sug gested that it is urothelial cancer. In any case, the patient does have a suprapubic tube because i t was very difficult to insert a Cruz catheter through his penis. Therefore, he had a 12 Hungarian finley prapubic catheter which gradually was increased in size and now he has an 18-Hungarian suprapubic momo ter and that is draining well. Today, it is draining very little and the urine is clear, with some blood tinge in it. OBJECTIVE: VITAL SIGNS: Temperature is 97.8, pulse is 80, respiration 24, blood pressure 100/40. ABDOMEN: Soft. The suprapubic tube is draining well, but the output is low. LABORATORY DATA: CBC shows a white count of 52.6 and his hemoglobin is 6.4, hematocrit 21.7. BUN i s 118, creatinine 1.54. Electrolytes: Sodium 141, potassium 4.0, chloride 105, CO2 of 19. The pat ient was transfused 2 units of blood. IMPRESSION: Prostate cancer with a suprapubic tube. PLAN: To keep the suprapubic tube in place and continue the present treatment. Dictated By: SERJIO JEFFERSON/CHELSI Conf#: [id number] DID#: [id number]
[2016-12-09] VITALS (101 sets, daily range): BP systolic 71–150; BP diastolic 40–102; PULSE 74–156; RESP 22–32
[2016-12-09] MEDS: ALBUTEROL 18 GM INHALER INH SCH ×6 (01:03→21:42)
[2016-12-09] MEDS: VASOPRESSIN 60 UNIT in DEXTROSE 5% 57 ML IV SCH ×3 (02:00→21:54)
[2016-12-09 04:58] LABS: ADD SCAN DIFF NO
[2016-12-09 05:03] LABS: ABNORMAL IP MESSAGE 1; HEMATOCRIT 26.6 % (42.0-52.0); HEMOGLOBIN 8.7 g/dl (14.0-18.0); MEAN CORPUSCULAR HEMOGLOBIN 29.1 pg (29.0-33.0); MEAN CORPUSCULAR HGB CONC 32.7 g/dl (32.0-37.0); MEAN PLATELET VOLUME 12.8 fl (7.4-10.4); PLATELET COUNT 233 10^3/UL (140-415); RED BLOOD COUNT 2.99 10^6/ul (4.70-6.10); RED CELL DISTRIBUTION WIDTH 16.9 % (11.5-14.5); WHITE BLOOD COUNT 34.3 10^3/ul (4.8-10.8)
[2016-12-09 05:27] LABS: POTASSIUM 3.7 mmol/L (3.5-5.1)
[2016-12-09 05:29] LABS: CREATININE 1.7 mg/dl (0.61-1.24)
[2016-12-09 05:30] LABS: CALCIUM 7.1 mg/dl (8.4-10.2); MAGNESIUM 1.7 mg/dl (1.7-2.5); PHOSPHORUS 6.3 mg/dl (2.5-4.9)
[2016-12-09] MEDS: PANTOPRAZOLE 40 MG INJ IV SCH (06:37)
[2016-12-09] MEDS: FENTAnyl (DRIP) 1000 mcg/100mL 100 ML IV SCH ×2 (06:42→14:49)
[2016-12-09] MEDS: MIDAZOLAM (DRIP) 50 mg/50 mL 50 ML IV SCH (06:42)
[2016-12-09] MEDS: SODIUM BICARBONATE (IV ADD) 150 MEQ in DEXTROSE 5% 850 ML IV SCH ×3 (07:39→17:53)
[2016-12-09] MEDS: LEVOFLOXACIN 500MG/D5W (PMX) 100 ML IVPB SCH (08:21)
[2016-12-09] MEDS: NA BICARBONATE 650 MG TAB GTB SCH ×3 (08:21→21:57)
[2016-12-09] MEDS: AMIODARONE 200 MG TAB GTB SCH (08:21)
[2016-12-09] MEDS: COLLAGENASE 30 GM TUBE TOP SCH (08:22)
[2016-12-09] MEDS ORDERED: VANCOMYCIN 750 MG in SOD CHLORIDE 0.9% 150 ML IVPB SCH ×2 (09:00→10:00)
--- NOTE | 2016-12-09 09:23 | PN ---
DATE: 12/09/2016 SUBJECTIVE: The patient remains critically ill, on 3 pressors, on a bicarbonate drip, on full venti latory support. The patient has had no significant clinical improvement. The patient received 2 un its of PRBC overnight. There has been no gross evidence of a GI bleed. Urinary output has been mar ginal, approximately 10 to 15 mL an hour. No other events noted. Please note, I spoke with the patient's , informing her of his critical nature. She has been m afshin aware. OBJECTIVE: VITAL SIGNS: Blood pressure 84/65, respirations 31, pulse 90, temperature 98.6. I's AND O'S: The patient has 6.2 liters in, 175 mL out. HEENT: Head is normocephalic. Pupils are reactive to light. NECK: Supple. HEART: Tachycardic. LUNGS: Showed diminished breath sounds at the base. Positive rhonchi and crackles. ABDOMEN: Soft, nontender to palpation. Positive PEG. EXTREMITIES: Negative for clubbing or cyanosis. Positive cachexia. DERMATOLOGIC: No rashes. MUSCULOSKELETAL: Have multiple decubitus wounds noted. NEUROLOGIC: The patient remains obtunded. LABORATORY DATA: Shows sodium 136, potassium 3.7, chloride 92, BUN 120, creatinine 1.70, calcium 7. 1, phosphorus 6.3. White count 34.3, hemoglobin 8.7, hematocrit 26.6, platelet count 233. The jose ent's cultures have been reviewed, x-ray have been reviewed, ABGs have been reviewed. ASSESSMENT AND PLAN: 1. Septic shock. Underlying source is multifactorial secondary to decubitus wound, likely aspirati on pneumonia or healthcare-associated pneumonia. The patient remains critically ill, on 3 pressors, broad spectrum antibiotics and IV fluids. At this point, continue the current treatment plan. Pedro Pablo herrera follow up with Infectious Disease and the infant toddler lead teacher for further recommendations. Will monitor cl osely. 2. Ventilatory-dependent respiratory failure. Vent settings have been reviewed. ABG has been revi ewed. Continue to monitor. The patient is not a weaning candidate. 3. Oliguric acute kidney injury on top of chronic kidney disease, with a previous baseline creatini ne of 2.75 mg/dL. Etiology of acute kidney injury is secondary to acute tubular necrosis due to chi ck, ischemic hypoperfusion and sepsis. The patient remains in the injury phase of acute tubular nec rosis. At this point the patient remains hemodynamically unstable for hemodialysis. I spoke with t he patient's , informing her of his instability for dialysis. She is aware. Otherwise would con tinue the current treatment plan. Continue to wean off or titrate down pressors, if possible. 4. Mixed acid base disorder. The patient has a metabolic acidosis and respiratory acidosis. The p atient's pH is 7.256 with a pCO2 of 38. At this point will continue the bicarbonate drip. Will fol low up serial ABGs and monitor. 5. Acute encephalopathy on top of chronic dementia. Etiology is toxic metabolic. Continue to grant tor. 6. Anemia. The patient is status post 2 units of PRBC, with appropriate response. The patient is being followed by GI. No obvious evidence of gastrointestinal bleed. May consider a CT scan to rul e out retroperitoneal hemorrhage. Monitor closely. 7. Mineral bone disorder. Monitor calcium and phosphorus levels. 8. Atrial fibrillation. Currently rate controlled. Continue to monitor. Follow up with cardiolog y. 9. Bilateral hydronephrosis secondary to pelvic mass and underlying malignancy. The patient is to be seen by Dr. Kimbrough. Continue to monitor. 10. Leukocytosis secondary to underlying sepsis. Continue the current treatment plan. 11. History of tongue cancer, with possible metastasis to the pelvis. Continue to monitor. 12. Dysphagia. Status post PEG. The patient's tube feedings are currently on hold. Will continue to observe. 13. Multiple decubitus wounds. Continue wound care. Will place a general surgical consult with Dr Ary Vu once the patient is clinically stable. 14. Transaminitis and elevated alkaline phosphatase, likely secondary to sepsis and shock liver. C ontinue to monitor. Follow up with GI. 15. Gastrointestinal and deep venous thrombosis prophylaxis. Continue proton pump inhibitor and se quential leg squeezers. Please note, I spent over 40 minutes of critical care time with this patient. Dictated By: JAX ANDRADE/CHELSI Conf#: [id number] DID#: [id number]
--- NOTE | 2016-12-09 09:42 | CONS ---
Date/Time of Note Date/Time of Note DATE: 12/09/16 TIME: 09:38 Assessment/Plan Assessment/Plan Additional Assessment/Plan Ventilator settings; AC of 24, tidal volume 500, PEEP of 0, 50% FiO2. Patient currently on Levophed at 30 mics per minute, phenylephrine at 160 mics per minute. Assessment recommendations; 1. Patient admitted for severe sepsis due to sacral decubitus ulcers with UTI as well as right lower lobe pneumonia. 2. Advanced Parkinson's disease and dementia. 3. Profound hypotension. 4. Right hydronephrosis. 5. Metastatic cancer with a history of tongue cancer in the past 6. Likely liver metastasis as well. 7. Worsening renal function. 8. Anemia, status post blood transfusion yesterday. No overt bleeding noted. Continue current treatment. Patient prognosis is dismal. 35 minutes critical care time was spent evaluating the patient. Consultation Date/Type/Reason Admit Date/Time Dec 07, 2016 at 01:03 Initial Consult Date 12/07/16 Type of Consultation: Pulmonary/critical care 24 HR Interval Summary Free Text/Dictation Patient condition remains critical. Remains profoundly hypotensive despite getting high-dose combination pressor support with phenylephrine and Levophed drips. Patient remains completely responsive which has been his underlying mental status for the last several months. General exam; elderly male, orally intubated, unresponsive. Exam/Review of Systems Vital Signs Vitals Vital Signs Date Time Temp Pulse Resp B/P Pulse Ox O2 Delivery O2 Flow Rate FiO2 12/09/16 05:15 90 31 84/65 94 Mechanical Ventilator 12/09/16 05:05 50 12/09/16 04:00 99.0 Intake and Output 12/08/16 12/08/16 12/09/16 15:00 23:00 07:00 Intake Total 2524.77 ml 2056.49 ml 1448.79 ml Output Total 25 ml 20 ml 210 ml Balance 2499.77 ml 2036.49 ml 1238.79 ml Exam HEENT examination; supple neck, or intubated. There is a well-healed tracheostomy scar. Bilateral corneal opacities are present. Patient has a multiple carious teeth. No neck masses, no thyromegaly. Chest examination; diminished but clear vessel. S1-S2 audible, no murmurs. Regular rhythm. Abdomen examination; soft, nondistended. G-tube in place. No organomegaly. Bowel sounds are sluggish. Back examination; there is a dressing applied over the sacrum. Extremity examination; no peripheral edema. Next ORTHOPEDIC SPECIALIST examination; patient remains unresponsive. Results Result Diagram: 12/09/16 0400 12/09/16 0400 Results 24 hrs Laboratory Tests Test 12/09/16 04:00 12/09/16 08:30 White Blood Count 34.3 #H Red Blood Count 2.99 #L Hemoglobin 8.7 #L Hematocrit 26.6 #L Mean Corpuscular Volume 89.0 Mean Corpuscular Hemoglobin 29.1 Mean Corpuscular Hemoglobin Concent 32.7 Red Cell Distribution Width 16.9 H Platelet Count 233 # Mean Platelet Volume 12.8 H Neutrophils % Eosinophils % Neutrophils # Eosinophils # Sodium Level 136 Potassium Level 3.7 Chloride Level 92 #L Carbon Dioxide Level 28 Anion Gap 20 H Blood Urea Nitrogen 120 H Creatinine 1.70 H Glucose Level 85 Calcium Level 7.1 L Phosphorus Level 6.3 #H Magnesium Level 1.7 Lactic Acid Level 7.6 *H Medications Medications Current Medications Ondansetron HCl (Zofran Inj) 4 mg Q6H PRN IV NAUSEA AND/OR VOMITING; Start at 02:00 Pantoprazole (Protonix Iv) 40 mg DAILY@06 IV Last administered on 12/09/16 06: 37; Admin Dose 40 MG; Start 12/07/16 at 06:00 Amiodarone HCl (Cordarone) 400 mg DAILY GTB Last administered on 12/09/16 08: 21; Admin Dose 400 MG; Start 12/07/16 at 09:00 Collagenase (Santyl) 1 applic DAILY TOP Last administered on 12/09/16 08:22; Admin Dose 1 APPLIC; Start 12/07/16 at 09:30 Collagenase 1 applic 1 applic PRN PRN TOP WOUND USE; Start 12/07/16 at 08:30 Levofloxacin/ Dextrose 100 ml @ 100 mls/hr Q48H IVPB Last administered on 12/09 08:21; Admin Dose 100 MLS/HR; Start 12/07/16 at 08:30 Vancomycin HCl 750 mg/Sodium Chloride 150 ml @ 75 mls/hr Q48H IVPB ; Start at 10:00; Status Future Hold Phenylephrine HCl 160 mg/Dextrose 500 ml @ 18.75 mls/ hr TITRATE IV Last administered on 12/08/16 23:36; Admin Dose 41.25 MLS/HR; Start 12/07/16 at 11: 00 Norepinephrine 32 mg/Dextrose 250 ml @ 0.46 mls/hr TITRATE IV Last administered on 12/08/16 23:35; Admin Dose 14.06 MLS/HR; Start 12/07/16 at 09: 30 Fentanyl 100 ml @ 2.5 mls/hr TITRATE IV Last administered on 12/09/16 06:42; Admin Dose 2.5 MLS/HR; Start 12/07/16 at 14:00 Midazolam HCl 50 ml @ 1 mls/hr TITRATE IV Last administered on 12/09/16 06:42 ; Admin Dose 1 MLS/HR; Start 12/07/16 at 14:00 Vasopressin 60 unit/Dextrose 60 ml @ 1.2 mls/hr Q12H IV Last administered on 14:08; Admin Dose 1.8 MLS/HR; Start 12/07/16 at 14:00 Sodium Bicarbonate/ Dextrose (Na Bicarb/D5W) 1,000 ml @ 100 mls/hr Q10H IV Last administered on 12/09/16 08:33; Admin Dose 100 MLS/HR; Start 12/07/16 at 17:30 Sodium Bicarbonate (Sodium Bicarbonate Tab) 650 mg TID GTB Last administered on 12/09/16 08:21; Admin Dose 650 MG; Start 12/08/16 at 13:00 WERNER CHURCH Dec 09, 2016 09:42
[2016-12-09 10:26] LABS: LYMPHOCYTES # 1.4 10^3/ul (0.8-2.9); NEUTROPHIL # 22.6 10^3/ul (1.6-7.5)
[2016-12-09 10:53] LABS: AADO2 Arterial 239.7 mmHg (7.0-24.0); Allen Test ACCEPTAB; Arterial Base Excess 4.2 mmol/L (-3.0-3); Arterial COHb 0.2 % (0.0-3.0); Arterial Fraction of Oxyhgb 94.6 % (93.0-99.0); Arterial HCO3 27.3 mmol/L (22.0-26.0); Arterial MetHb 0.6 % (0.0-1.5); Arterial Total Hemglobin 9.8 g/dl (12.0-18.0); Blood Gas Low PEEP Setting 0 cmH2O; MODE VENT - AC
[2016-12-09] MEDS: PHENYLephrine 160 MG in DEXTROSE 5% 484 ML IV SCH (14:52)
[2016-12-09] MEDS ORDERED: MAGNESIUM SULFATE 2 GM/50 ML 50 ML IVPB ONE (15:00)
[2016-12-09] MEDS ORDERED: AMIODARONE 900 MG in DEXTROSE 5% 482 ML IV SCH (15:30)
--- NOTE | 2016-12-09 15:38 | CONS ---
Date/Time of Note Date/Time of Note DATE: 12/09/16 TIME: 15:31 Assessment/Plan Assessment/Plan Chief Complaint/Hosp Course ID PROGRESS NOTE CURRENT ABX DAY #5 => Vanco IV + Levaquin + Primaxin #1 s/p Merrem + Bactrim @ [facility] = on chronic ABX for chronic rectal fistula/ abscess 24H INTERVAL SUMMARY * Chronic progressive debility, respiratory failure, chronic sepsis due to rectal abscess, janneth-rectal fistula, ASP PNA * Lactic acid level elevated -- was waiting for sputum for C&S to change ABX -- appears was not sent * Add Primaxin today PHYSICAL EXAMINATION: GENERAL: Cachectic, chronically debilitated, M orally intubated on pressors in the ICU HEENT: ETT/OGT secure NECK: Chronic hyperextended CHEST: Rise symmetrical/ course BS, rhonci on the Vent HEART: Pulse RRR ABDOMEN: Soft, peg EXTREMITIES: Muscle atrophy, gely prominences w/decub dsgs, wounds, skin tears : Urinary diversion (+)DIarrhea -> chronic rectal bleed chronic rectal fistula track/abscess SKIN: Mutiple decubs -- See wound photos ID ASSESSMENT 76 yo M admit with: 1. Advanced Parkinson's dementia w/depression, hx of meningioma, SDH, w/ supranuclear palsy, chronic encephalopathy 2. Metastatic CA of the tongue-> Hx of resection, chemo, XRT 3. Prostate Carcinoma 4. History of pelvic mass, presumed to be metastatic disease, near the area of the Prostate Gland 5. Obstructive uropathy due to pelvic mass w/chronic right hydronephrosis/ hydroureter 6. Urinary diversion per Dr. Kimbrough 7. Neurogenic bladder 8. Recurrent UTIs /hx of pyelonephritis 9. Dysphagia status post G-tube placement. 10. Aspiration syndrome w/recurrent aspiration pneumonitis and HCAP * 12/01 sputum cx (+)PSAR resistant to Quinolones 11. Hx of HTN, Atrial fibrillation, diastolic HF 12. Previous history of acute kidney injury/ATN. 13. History of GI bleed. 14. 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 Multiple decubitus wounds- STG III, Unstageable 16. Severe malnutrition, cachexia 17. Failure to thrive (-)MRSA Nares (-)VRE Screen 10/28 (+) CRE Screen 10/28 =(+)Carbapenemase resistant Enterobacteriaceae Stool INVASIVES: ETT, OGT, Peg, Suprapubic cath ABX ALLERGY: KNDA CURRENT ABX:CURRENT ABX DAY #5 => Vanco IV + Levaquin + Primaxin #1 s/p Merrem + Bactrim @ [facility] = on chronic ABX for chronic rectal fistula/ abscess ID RECOMMENDATIONS 1. Continue ABX => Add Primaxin * -> Chronic Aspiration Pneumonitis vs PNA, chronic rectal abscess, chronic wounds * -> Note patient has chronic rectal fistula w/chronic abscess and recurring rectal bleeding, he has already undergone prior surgical attempts to repair the rectal fistula tract with recurrence. 2 ABX will not reverse poor prognosis; rather have been used a means to prolong the end of life process, patient is now colonized with CRE . . * Critically ill with multi-organ failure patient is palliative/hospice care appropriate; nevertheless he remains on aggressive medical plan of care. Problems: Consultation Date/Type/Reason Admit Date/Time Dec 07, 2016 at 01:03 Initial Consult Date 12/07/16 Type of Consultation: ID Exam/Review of Systems Vital Signs Vitals Vital Signs Date Time Temp Pulse Resp B/P Pulse Ox O2 Delivery O2 Flow Rate FiO2 12/09/16 15:26 90 24 100 50 12/09/16 08:30 89/44 Mechanical Ventilator 12/09/16 08:00 98.7 Intake and Output 12/08/16 12/08/16 12/09/16 15:00 23:00 07:00 Intake Total 2524.77 ml 2056.49 ml 1497.15 ml Output Total 25 ml 20 ml 210 ml Balance 2499.77 ml 2036.49 ml 1287.15 ml Results Result Diagram: 12/09/16 0400 12/09/16 0400 Results 24 hrs Laboratory Tests Test 12/09/16 04:00 12/09/16 08:30 12/09/16 08:55 White Blood Count 34.3 #H Red Blood Count 2.99 #L Hemoglobin 8.7 #L Hematocrit 26.6 #L Mean Corpuscular Volume 89.0 Mean Corpuscular Hemoglobin 29.1 Mean Corpuscular Hemoglobin Concent 32.7 Red Cell Distribution Width 16.9 H Platelet Count 233 # Mean Platelet Volume 12.8 H Neutrophils % 66.0 Band Neutrophils % 29.0 H Lymphocytes % 4.0 L Eosinophils % Metamyelocytes % 1.0 H Neutrophils # 22.6 H Lymphocytes # 1.4 Eosinophils # Metamyelocytes # 0.3 Differential Comment MANUAL DIFF Sodium Level 136 Potassium Level 3.7 Chloride Level 92 #L Carbon Dioxide Level 28 Anion Gap 20 H Blood Urea Nitrogen 120 H Creatinine 1.70 H Glucose Level 85 Calcium Level 7.1 L Phosphorus Level 6.3 #H Magnesium Level 1.7 Lactic Acid Level 7.6 *H Blood Gas Specimen Source Blood arterial Arterial Blood Date Drawn 12/09/2016 10:20:31 AM Arterial Blood pH (Temp corrected) 7.513 H Arterial Blood pCO2 (Temp correct) 34.7 L Arterial Blood pO2 (Temp corrected) 77.8 L Arterial Blood HCO3 27.3 H Arterial Blood Base Excess 4.2 H Arterial Blood Oxygen Saturation 95.4 Eric Test ACCEPTAB Arterial Blood Gas Puncture Site Right Radial Arterial Blood Carboxyhemoglobin 0.2 Arterial Blood Methemoglobin 0.6 Blood Gas A-a O2 Differential 239.7 H Oxyhemoglobin Percent 94.6 Total Hemoglobin 9.8 L Blood Gas Temperature 37.0 Blood Gas Respiration Rate 24.0 Blood Gas Actual Respiration Rate 24 Blood Gas Modality VENT - AC FiO2 50.0 Blood Gas Tidal Volume 500.0 Blood Gas Low PEEP Setting 0 Blood Gas Notified Whom JLD Blood Gas Notified Time 12/09/2016 10:53:32 AM Medications Medications Current Medications Ondansetron HCl (Zofran Inj) 4 mg Q6H PRN IV NAUSEA AND/OR VOMITING; Start at 02:00 Pantoprazole (Protonix Iv) 40 mg DAILY@06 IV Last administered on 12/09/16 06: 37; Admin Dose 40 MG; Start 12/07/16 at 06:00 Amiodarone HCl (Cordarone) 400 mg DAILY GTB Last administered on 12/09/16 08: 21; Admin Dose 400 MG; Start 12/07/16 at 09:00 Collagenase (Santyl) 1 applic DAILY TOP Last administered on 12/09/16 08:22; Admin Dose 1 APPLIC; Start 12/07/16 at 09:30 Collagenase 1 applic 1 applic PRN PRN TOP WOUND USE; Start 12/07/16 at 08:30 Levofloxacin/ Dextrose 100 ml @ 100 mls/hr Q48H IVPB Last administered on 12/09 08:21; Admin Dose 100 MLS/HR; Start 12/07/16 at 08:30 Vancomycin HCl 750 mg/Sodium Chloride 150 ml @ 75 mls/hr Q48H IVPB ; Start at 10:00; Status Future Hold Phenylephrine HCl 160 mg/Dextrose 500 ml @ 18.75 mls/ hr TITRATE IV Last administered on 12/09/16 14:52; Admin Dose 28.12 MLS/HR; Start 12/07/16 at 11: 00 Norepinephrine 32 mg/Dextrose 250 ml @ 0.46 mls/hr TITRATE IV Last administered on 12/08/16 23:35; Admin Dose 14.06 MLS/HR; Start 12/07/16 at 09: 30 Fentanyl 100 ml @ 2.5 mls/hr TITRATE IV Last administered on 12/09/16 14:49; Admin Dose 2.5 MLS/HR; Start 12/07/16 at 14:00 Midazolam HCl 50 ml @ 1 mls/hr TITRATE IV Last administered on 12/09/16 06:42 ; Admin Dose 1 MLS/HR; Start 12/07/16 at 14:00 Vasopressin 60 unit/Dextrose 60 ml @ 1.2 mls/hr Q12H IV Last administered on 14:08; Admin Dose 1.8 MLS/HR; Start 12/07/16 at 14:00 Sodium Bicarbonate/ Dextrose (Na Bicarb/D5W) 1,000 ml @ 100 mls/hr Q10H IV Last administered on 12/09/16 08:33; Admin Dose 100 MLS/HR; Start 12/07/16 at 17:30 Sodium Bicarbonate 650 mg 650 mg TID GTB Last administered on 12/09/16 13:00; Admin Dose 650 MG; Start 12/08/16 at 13:00 Magnesium Sulfate 50 ml @ 25 mls/hr ONCE ONCE IVPB Last administered on 15:11; Admin Dose 25 MLS/HR; Start 12/09/16 at 15:00; Stop 12/09/16 at 16: 59 Amiodarone HCl/ Dextrose (Cordarone Iv/ D5W) 500 ml @ 0 mls/hr Q0M IV ; Start at 15:30 Miscellaneous Information (*Rx Drug Level Order Reminder*) RANDOM VANCO LEVEL... ONCE ONCE XX ; Start 12/10/16 at 05:00; Stop 12/10/16 at 05:01 CEASAR VIEYRA NP Dec 09, 2016 15:38
--- NOTE | 2016-12-09 16:54 | CONS ---
Date/Time of Note Date/Time of Note DATE: 12/09/16 TIME: 16:51 Assessment/Plan Assessment/Plan Additional Assessment/Plan IMPRESSION: 1. Septic shock. 2. Severe anemia. 3. Prerenal azotemia. 4. Prostate cancer. 5. Tongue cancer. 6. Parkinson's disease. 7. Dementia. 8. Respiratory failure. 9. Abnormal liver function tests. 10. Atrial fibrillation. 11. Hydronephrosis. 12. Rectal bleeding probably from the tumor invading the rectum. Plan Continue antibiotic Continue all the supportive care Continue vent support and nutrition. Will monitor WBC count and hematocrit closely. Patient is not a candidate for any invasive GI procedure. Consultation Date/Type/Reason Admit Date/Time Dec 07, 2016 at 01:03 Initial Consult Date 12/07/16 Type of Consultation: ID 24 HR Interval Summary Free Text/Dictation As per the staff patient had brick colored stool Exam/Review of Systems Vital Signs Vitals Vital Signs Date Time Temp Pulse Resp B/P Pulse Ox O2 Delivery O2 Flow Rate FiO2 12/09/16 15:26 90 24 100 50 12/09/16 08:30 89/44 Mechanical Ventilator 12/09/16 08:00 98.7 Intake and Output 12/08/16 12/08/16 12/09/16 15:00 23:00 07:00 Intake Total 2524.77 ml 2056.49 ml 1497.15 ml Output Total 25 ml 20 ml 210 ml Balance 2499.77 ml 2036.49 ml 1287.15 ml Exam Neck: non-tender, supple Respiratory: clear to auscultation, normal air movement Cardiovascular: nl pulses, regular rate and rhythm Gastrointestinal: nl liver, spleen, non-tender, soft Neurological: unresponsive Results Result Diagram: 12/09/16 0400 12/09/16 0400 Results 24 hrs Laboratory Tests Test 12/09/16 04:00 12/09/16 08:30 12/09/16 08:55 12/09/16 15:40 White Blood Count 34.3 #H Red Blood Count 2.99 #L Hemoglobin 8.7 #L Hematocrit 26.6 #L Mean Corpuscular Volume 89.0 Mean Corpuscular Hemoglobin 29.1 Mean Corpuscular Hemoglobin Concent 32.7 Red Cell Distribution Width 16.9 H Platelet Count 233 # Mean Platelet Volume 12.8 H Neutrophils % 66.0 Band Neutrophils % 29.0 H Lymphocytes % 4.0 L Eosinophils % Metamyelocytes % 1.0 H Neutrophils # 22.6 H Lymphocytes # 1.4 Eosinophils # Metamyelocytes # 0.3 Differential Comment MANUAL DIFF Sodium Level 136 Potassium Level 3.7 Chloride Level 92 #L Carbon Dioxide Level 28 Anion Gap 20 H Blood Urea Nitrogen 120 H Creatinine 1.70 H Glucose Level 85 Calcium Level 7.1 L Phosphorus Level 6.3 #H Magnesium Level 1.7 Lactic Acid Level 7.6 *H 7.3 *H Blood Gas Specimen Source Blood arterial Arterial Blood Date Drawn 12/09/2016 10:20:31 AM Arterial Blood pH (Temp corrected) 7.513 H Arterial Blood pCO2 (Temp correct) 34.7 L Arterial Blood pO2 (Temp corrected) 77.8 L Arterial Blood HCO3 27.3 H Arterial Blood Base Excess 4.2 H Arterial Blood Oxygen Saturation 95.4 Eric Test ACCEPTAB Arterial Blood Gas Puncture Site Right Radial Arterial Blood Carboxyhemoglobin 0.2 Arterial Blood Methemoglobin 0.6 Blood Gas A-a O2 Differential 239.7 H Oxyhemoglobin Percent 94.6 Total Hemoglobin 9.8 L Blood Gas Temperature 37.0 Blood Gas Respiration Rate 24.0 Blood Gas Actual Respiration Rate 24 Blood Gas Modality VENT - AC FiO2 50.0 Blood Gas Tidal Volume 500.0 Blood Gas Low PEEP Setting 0 Blood Gas Notified Whom JLD Blood Gas Notified Time 12/09/2016 10:53:32 AM Medications Medications Current Medications Ondansetron HCl (Zofran Inj) 4 mg Q6H PRN IV NAUSEA AND/OR VOMITING; Start at 02:00 Pantoprazole (Protonix Iv) 40 mg DAILY@06 IV Last administered on 12/09/16 06: 37; Admin Dose 40 MG; Start 12/07/16 at 06:00 Amiodarone HCl (Cordarone) 400 mg DAILY GTB Last administered on 12/09/16 08: 21; Admin Dose 400 MG; Start 12/07/16 at 09:00 Collagenase (Santyl) 1 applic DAILY TOP Last administered on 12/09/16 08:22; Admin Dose 1 APPLIC; Start 12/07/16 at 09:30 Collagenase 1 applic 1 applic PRN PRN TOP WOUND USE; Start 12/07/16 at 08:30 Levofloxacin/ Dextrose 100 ml @ 100 mls/hr Q48H IVPB Last administered on 12/09 08:21; Admin Dose 100 MLS/HR; Start 12/07/16 at 08:30 Vancomycin HCl 750 mg/Sodium Chloride 150 ml @ 75 mls/hr Q48H IVPB ; Start at 10:00; Status Future Hold Phenylephrine HCl 160 mg/Dextrose 500 ml @ 18.75 mls/ hr TITRATE IV Last administered on 12/09/16 14:52; Admin Dose 28.12 MLS/HR; Start 12/07/16 at 11: 00 Norepinephrine 32 mg/Dextrose 250 ml @ 0.46 mls/hr TITRATE IV Last administered on 12/08/16 23:35; Admin Dose 14.06 MLS/HR; Start 12/07/16 at 09: 30 Fentanyl 100 ml @ 2.5 mls/hr TITRATE IV Last administered on 12/09/16 14:49; Admin Dose 2.5 MLS/HR; Start 12/07/16 at 14:00 Midazolam HCl 50 ml @ 1 mls/hr TITRATE IV Last administered on 12/09/16 06:42 ; Admin Dose 1 MLS/HR; Start 12/07/16 at 14:00 Vasopressin 60 unit/Dextrose 60 ml @ 1.2 mls/hr Q12H IV Last administered on 14:08; Admin Dose 1.8 MLS/HR; Start 12/07/16 at 14:00 Sodium Bicarbonate/ Dextrose (Na Bicarb/D5W) 1,000 ml @ 100 mls/hr Q10H IV Last administered on 12/09/16 08:33; Admin Dose 100 MLS/HR; Start 12/07/16 at 17:30 Sodium Bicarbonate 650 mg 650 mg TID GTB Last administered on 12/09/16 13:00; Admin Dose 650 MG; Start 12/08/16 at 13:00 Magnesium Sulfate 50 ml @ 25 mls/hr ONCE ONCE IVPB Last administered on 15:11; Admin Dose 25 MLS/HR; Start 12/09/16 at 15:00; Stop 12/09/16 at 16: 59 Amiodarone HCl/ Dextrose (Cordarone Iv/ D5W) 500 ml @ 0 mls/hr Q0M IV ; Start at 15:30 Miscellaneous Information RANDOM VANCO LEVEL... ONCE ONCE XX ; Start 12/10/16 at 05:00; Stop 12/10/16 at 05:01 Imipenem/ Cilastatin Sodium/ Sodium Chloride (Primaxin/NS) 250 ml @ 166.667 mls /hr Q6 IVPB ; Start 12/09/16 at 18:00; Status UNV CHELE CASE MD Dec 09, 2016 16:53
[2016-12-09] MEDS ORDERED: IMIPENEM/CILASTATIN 1,000 MG in SOD CHLORIDE 0.9% 250 ML IVPB SCH (18:00)
[2016-12-09] MEDS: SODIUM HYPOCHLORITE 0.125% 473 ML BTL IRR SCH (21:00)
[2016-12-09] MEDS: NORepinephrine 32 MG in DEXTROSE 5% 218 ML IV SCH (21:52)
[2016-12-09] MEDS: IMIPENEM-CILAST 500MG IV (PMX) 100 ML IVPB SCH (21:57)
[2016-12-10] VITALS (105 sets, daily range): BP systolic 89–199; BP diastolic 47–89; PULSE 50–110; RESP 22–28
[2016-12-10] MEDS: ALBUTEROL 18 GM INHALER INH SCH ×6 (01:04→21:00)
[2016-12-10] MEDS: SODIUM BICARBONATE (IV ADD) 150 MEQ in DEXTROSE 5% 850 ML IV SCH ×2 (04:15→15:30)
[2016-12-10 04:58] LABS: ADD SCAN DIFF NO
[2016-12-10 05:00] LABS: HEMATOCRIT 26.5 % (42.0-52.0); HEMOGLOBIN 8.8 g/dl (14.0-18.0); MEAN CORPUSCULAR HEMOGLOBIN 29.3 pg (29.0-33.0); MEAN CORPUSCULAR HGB CONC 33.2 g/dl (32.0-37.0); MEAN CORPUSCULAR VOLUME 88.3 fl (82.0-101.0); WHITE BLOOD COUNT 22.1 10^3/ul (4.8-10.8)
[2016-12-10 05:12] LABS: POTASSIUM 3.7 mmol/L (3.5-5.1)
[2016-12-10 05:15] LABS: CREATININE 1.95 mg/dl (0.61-1.24)
[2016-12-10 05:16] LABS: CALCIUM 6.2 mg/dl (8.4-10.2); PHOSPHORUS 6.1 mg/dl (2.5-4.9)
[2016-12-10] MEDS: PANTOPRAZOLE 40 MG INJ IV SCH (05:17)
[2016-12-10 05:57] LABS: ALBUMIN 1.7 g/dl (3.3-4.9)
[2016-12-10 06:00] LABS: BILIRUBIN,INDIRECT 0.1 mg/dl (0-1.1); BILIRUBIN,TOTAL 0.1 mg/dl (0.2-1.3); TOTAL PROTEIN 4.1 g/dl (6.1-8.1)
--- NOTE | 2016-12-10 08:44 | CONS ---
Date/Time of Note Date/Time of Note DATE: 12/10/16 TIME: 08:42 Assessment/Plan Assessment/Plan Additional Assessment/Plan Ventilator settings; AC of 24, tidal volume 500, PEEP of 0, 50% FiO2. Patient currently on Levophed 30 mics per minute, phenylephrine at 109 mics per minute, vasopressin at 0.03 U/min, fentanyl drip at 25 mics per hour. Assessment recommendations; 1. Patient admitted for severe sepsis from pneumonia as well as UTI and sacral decubitus ulcers. 2. Profound shock. 3. Renal insufficiency. 4. Anemia. 5. Advanced Parkinson's disease. 6. Advanced dementia. 7. Right hydronephrosis. 8. Metastatic glossal cancer. Continue current supportive care. Prognosis is extremely poor. Consultation Date/Type/Reason Admit Date/Time Dec 07, 2016 at 01:03 Initial Consult Date 12/07/16 Type of Consultation: Pulmonary/critical care 24 HR Interval Summary Free Text/Dictation Patient condition remains critical. Still requiring high-dose pressor support for blood pressure maintenance. Patient remains unresponsive. Exam; elderly male, on ventilator, orally intubated. Exam/Review of Systems Vital Signs Vitals Vital Signs Date Time Temp Pulse Resp B/P Pulse Ox O2 Delivery O2 Flow Rate FiO2 12/10/16 08:00 101 24 100/51 98 Mechanical Ventilator 12/10/16 07:40 50 12/10/16 04:00 98.0 Intake and Output 12/09/16 12/09/16 12/10/16 15:00 23:00 07:00 Intake Total 1033.52 ml 987.42 ml 650.48 ml Output Total 120 ml 205 ml 260 ml Balance 913.52 ml 782.42 ml 390.48 ml Exam HEENT exam is; supple neck, a colostomy scar is present. Orally intubated. Patient has multiple carious teeth. Bilateral corneal opacities are present. Positive JVD. No lymphadenopathy. Supple neck. Chest examination; diminished but clear vessel. S1-S2 audible, no murmurs. Regular rhythm. Abdomen examination; soft, no organomegaly. G-tube in place. Bowel sounds audible. Extremity examination; no peripheral edema. Back examination reveals dressing applied over sacrum. T[employer] ACCOUNT MANAGER examination; patient is sedated. Results Result Diagram: 12/10/16 0415 12/10/16 0415 Results 24 hrs Laboratory Tests Test 12/09/16 08:55 12/09/16 15:40 12/10/16 04:15 Blood Gas Specimen Source Blood arterial Arterial Blood Date Drawn 12/09/2016 10:20:31 AM Arterial Blood pH (Temp corrected) 7.513 H Arterial Blood pCO2 (Temp correct) 34.7 L Arterial Blood pO2 (Temp corrected) 77.8 L Arterial Blood HCO3 27.3 H Arterial Blood Base Excess 4.2 H Arterial Blood Oxygen Saturation 95.4 Eric Test ACCEPTAB Arterial Blood Gas Puncture Site Right Radial Arterial Blood Carboxyhemoglobin 0.2 Arterial Blood Methemoglobin 0.6 Blood Gas A-a O2 Differential 239.7 H Oxyhemoglobin Percent 94.6 Total Hemoglobin 9.8 L Blood Gas Temperature 37.0 Blood Gas Respiration Rate 24.0 Blood Gas Actual Respiration Rate 24 Blood Gas Modality VENT - AC FiO2 50.0 Blood Gas Tidal Volume 500.0 Blood Gas Low PEEP Setting 0 Blood Gas Notified Whom JLD Blood Gas Notified Time 12/09/2016 10:53:32 AM Lactic Acid Level 7.3 *H 7.0 *H White Blood Count 22.1 #H Red Blood Count 3.00 L Hemoglobin 8.8 L Hematocrit 26.5 L Mean Corpuscular Volume 88.3 Mean Corpuscular Hemoglobin 29.3 Mean Corpuscular Hemoglobin Concent 33.2 Red Cell Distribution Width 16.0 H Platelet Count 193 Mean Platelet Volume 13.0 H Neutrophils % Eosinophils % Neutrophils # Eosinophils # Sodium Level 131 L Potassium Level 3.7 Chloride Level 83 L Carbon Dioxide Level 32 H Anion Gap 20 H Blood Urea Nitrogen 118 H Creatinine 1.95 H Glucose Level 105 Calcium Level 6.2 L Phosphorus Level 6.1 H Magnesium Level 2.0 Total Bilirubin 0.1 L Direct Bilirubin 0.00 Indirect Bilirubin 0.1 Aspartate Amino Transf (AST/SGOT) 318 H Alanine Aminotransferase (ALT/SGPT) 242 H Alkaline Phosphatase 162 H Total Protein 4.1 L Albumin 1.7 L Random Vancomycin Level 8.8 Medications Medications Current Medications Ondansetron HCl (Zofran Inj) 4 mg Q6H PRN IV NAUSEA AND/OR VOMITING; Start at 02:00 Pantoprazole (Protonix Iv) 40 mg DAILY@06 IV Last administered on 12/10/16t 05: 17; Admin Dose 40 MG; Start 12/07/16 at 06:00 Amiodarone HCl (Cordarone) 400 mg DAILY GTB Last administered on 12/09/16 08: 21; Admin Dose 400 MG; Start 12/07/16 at 09:00 Collagenase (Santyl) 1 applic DAILY TOP Last administered on 12/09/16 08:22; Admin Dose 1 APPLIC; Start 12/07/16 at 09:30 Collagenase 1 applic 1 applic PRN PRN TOP WOUND USE; Start 12/07/16 at 08:30 Levofloxacin/ Dextrose 100 ml @ 100 mls/hr Q48H IVPB Last administered on 12/09 08:21; Admin Dose 100 MLS/HR; Start 12/07/16 at 08:30 Vancomycin HCl 750 mg/Sodium Chloride 150 ml @ 75 mls/hr Q48H IVPB ; Start at 10:00; Status Future Hold Phenylephrine HCl 160 mg/Dextrose 500 ml @ 18.75 mls/ hr TITRATE IV Last administered on 12/09/16 14:52; Admin Dose 28.12 MLS/HR; Start 12/07/16 at 11: 00 Norepinephrine 32 mg/Dextrose 250 ml @ 0.46 mls/hr TITRATE IV Last administered on 12/09/16 21:52; Admin Dose 14.06 MLS/HR; Start 12/07/16 at 09: 30 Fentanyl 100 ml @ 2.5 mls/hr TITRATE IV Last administered on 12/09/16 14:49; Admin Dose 2.5 MLS/HR; Start 12/07/16 at 14:00 Midazolam HCl 50 ml @ 1 mls/hr TITRATE IV Last administered on 12/09/16 06:42 ; Admin Dose 1 MLS/HR; Start 12/07/16 at 14:00 Vasopressin 60 unit/Dextrose 60 ml @ 1.2 mls/hr Q12H IV Last administered on 21:54; Admin Dose 2.4 MLS/HR; Start 12/07/16 at 14:00 Sodium Bicarbonate/ Dextrose (Na Bicarb/D5W) 1,000 ml @ 100 mls/hr Q10H IV Last administered on 12/10/16 04:15; Admin Dose 100 MLS/HR; Start 12/07/16 at 17:30 Sodium Bicarbonate 650 mg 650 mg TID GTB Last administered on 12/09/16 21:57; Admin Dose 650 MG; Start 12/08/16 at 13:00 Amiodarone HCl 900 mg/Dextrose 500 ml @ 0 mls/hr Q0M IV Last administered on 17:30; Admin Dose 33.4 MLS/HR; Start 12/09/16 at 15:30 Imipenem/ Cilastatin Sodium (Primaxin 500 Mg/ 100 ml (Pmx)) 100 ml @ 100 mls/ hr Q12 IVPB Last administered on 12/09/16 21:57; Admin Dose 100 MLS/HR; Start 12/09/16 at 19:00 Sodium Hypochlorite (Dakin'S (1/4 Strength)) 1 applic BID IRR Last administered on 12/09/16 21:00; Admin Dose 1 APPLIC; Start 12/09/16 at 21:00 WERNER CHURCH Dec 10, 2016 08:44
[2016-12-10] MEDS: AMIODARONE 200 MG TAB GTB SCH (09:00)
[2016-12-10] MEDS: NA BICARBONATE 650 MG TAB GTB SCH ×3 (09:04→21:37)
[2016-12-10] MEDS: IMIPENEM-CILAST 500MG IV (PMX) 100 ML IVPB SCH ×2 (09:04→21:30)
[2016-12-10] MEDS: SODIUM HYPOCHLORITE 0.125% 473 ML BTL IRR SCH ×2 (09:05→21:25)
[2016-12-10] MEDS: COLLAGENASE 30 GM TUBE TOP SCH (09:05)
[2016-12-10 09:42] LABS: LYMPHOCYTES # 1.1 10^3/ul (0.8-2.9); PLATELET ESTIMATE PLT APPEAR ADEQUATE
[2016-12-10] MEDS ORDERED: VANCOMYCIN 1 GM in NS 250 ML IVPB SCH (11:30)
[2016-12-10] MEDS: PHENYLephrine 160 MG in DEXTROSE 5% 484 ML IV SCH (13:10)
[2016-12-10] MEDS: VASOPRESSIN 60 UNIT in DEXTROSE 5% 57 ML IV SCH (14:00)
--- NOTE | 2016-12-10 14:11 | PN ---
DATE: 12/10/2016 SUBJECTIVE: The patient is on a respirator and he has an endotracheal tube. He is sedated. No com plaints on his part, but the patient has a history of prostate cancer and is status post radiation. He also has a history of tongue cancer and is status post surgery. He has a pelvic mass which is ca ncer, but the origin of it is not well defined. VITAL SIGNS: His temperature is 100.2, the blood pressure 107/54, pulse is 92, and respirations 24. The CBC shows a white count of 22.1, hemoglobin 8.8, hematocrit 26.5. BUN is 118, creatinine 1.95. Sodium 131, potassium 3.7, chloride 83, CO2 32. The urine culture shows no growth after 48 hours. From a urological standpoint, will just keep the suprapubic tube in place. The urine is clear and when it is time to change the suprapubic tube, I will change it. Dictated By: SERJIO JEFFERSON/CHELSI Conf#: [id number] DID#: [id number]
[2016-12-10] MEDS: NORepinephrine 32 MG in DEXTROSE 5% 218 ML IV SCH (14:17)
--- NOTE | 2016-12-10 16:28 | CONS ---
Date/Time of Note Date/Time of Note DATE: 12/10/16 TIME: 16:26 Assessment/Plan Assessment/Plan Additional Assessment/Plan Additional Assessment/Plan IMPRESSION: 1. Septic shock. Patient on 3 pressor support 2. Severe anemia. 3. Prerenal azotemia. 4. Prostate cancer. 5. Tongue cancer. 6. Parkinson's disease. 7. Dementia. 8. Respiratory failure. 9. Abnormal liver function tests. Patient has a multiple non-defined lesion in the liver 10. Atrial fibrillation. 11. Hydronephrosis. 12. Rectal bleeding probably from the tumor invading the rectum. Plan Continue antibiotic Continue all the supportive care Continue vent support and nutrition. Will monitor WBC count and hematocrit closely. Patient prognosis remains poor Consultation Date/Type/Reason Admit Date/Time Dec 07, 2016 at 01:03 Initial Consult Date 12/07/16 Type of Consultation: Pulmonary/critical care 24 HR Interval Summary Subjective hx not possible: pt non-verbal, pt critical Exam/Review of Systems Vital Signs Vitals Vital Signs Date Time Temp Pulse Resp B/P Pulse Ox O2 Delivery O2 Flow Rate FiO2 12/10/16 15:32 92 24 99 50 12/10/16 15:30 92/50 Mechanical Ventilator 12/10/16 12:00 100.5 Intake and Output 12/09/16 12/09/16 12/10/16 15:00 23:00 07:00 Intake Total 1033.52 ml 987.42 ml 806.66 ml Output Total 120 ml 205 ml 290 ml Balance 913.52 ml 782.42 ml 516.66 ml Exam Constitutional: alert, oriented, well developed Psych: nl mood/affect, no complaints Head: atraumatic, normocephalic Eyes: EOMI, PERRL, nl conjunctiva, nl lids, nl sclera ENMT: nl external ears & nose, nl lips & teeth, nl nasal mucosa & septum Neck: non-tender, supple Respiratory: clear to auscultation, normal air movement Cardiovascular: nl pulses, regular rate and rhythm Gastrointestinal: nl liver, spleen, non-tender, soft Musculoskeletal: nl extremities to inspection, nl gait and stance Extremities: normal pulses 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, nl mental status, nl speech, nl strength Skin: nl turgor, No rash or lesions Lymph: nl lymph nodes Results Result Diagram: 12/10/16 0415 12/10/16 0415 Results 24 hrs Laboratory Tests Test 12/10/16 04:15 White Blood Count 22.1 #H Red Blood Count 3.00 L Hemoglobin 8.8 L Hematocrit 26.5 L Mean Corpuscular Volume 88.3 Mean Corpuscular Hemoglobin 29.3 Mean Corpuscular Hemoglobin Concent 33.2 Red Cell Distribution Width 16.0 H Platelet Count Mean Platelet Volume 13.0 H Neutrophils % 68.0 Band Neutrophils % 27.0 H Lymphocytes % 5.0 L Eosinophils % Neutrophils # 15.0 H Lymphocytes # 1.1 Eosinophils # Platelet Estimate PLT APPEAR ADEQUATE Sodium Level 131 L Potassium Level 3.7 Chloride Level 83 L Carbon Dioxide Level 32 H Anion Gap 20 H Blood Urea Nitrogen 118 H Creatinine 1.95 H Glucose Level 105 Lactic Acid Level 7.0 *H Calcium Level 6.2 L Phosphorus Level 6.1 H Magnesium Level 2.0 Total Bilirubin 0.1 L Direct Bilirubin 0.00 Indirect Bilirubin 0.1 Aspartate Amino Transf (AST/SGOT) 318 H Alanine Aminotransferase (ALT/SGPT) 242 H Alkaline Phosphatase 162 H Total Protein 4.1 L Albumin 1.7 L Random Vancomycin Level 8.8 Medications Medications Current Medications Ondansetron HCl (Zofran Inj) 4 mg Q6H PRN IV NAUSEA AND/OR VOMITING; Start at 02:00 Pantoprazole (Protonix Iv) 40 mg DAILY@06 IV Last administered on 12/10/16 05: 17; Admin Dose 40 MG; Start 12/07/16 at 06:00 Amiodarone HCl (Cordarone) 400 mg DAILY GTB Last administered on 12/09/16 08: 21; Admin Dose 400 MG; Start 12/07/16 at 09:00 Collagenase (Santyl) 1 applic DAILY TOP Last administered on 12/10/16 09:05; Admin Dose 1 APPLIC; Start 12/07/16 at 09:30 Collagenase 1 applic 1 applic PRN PRN TOP WOUND USE; Start 12/07/16 at 08:30 Levofloxacin/ Dextrose 100 ml @ 100 mls/hr Q48H IVPB Last administered on 12/09 08:21; Admin Dose 100 MLS/HR; Start 12/07/16 at 08:30 Phenylephrine HCl 160 mg/Dextrose 500 ml @ 18.75 mls/ hr TITRATE IV Last administered on 12/10/16 13:10; Admin Dose 20.49 MLS/HR; Start 12/07/16 at 11: 00 Norepinephrine 32 mg/Dextrose 250 ml @ 0.46 mls/hr TITRATE IV Last administered on 12/10/16 14:17; Admin Dose 14.06 MLS/HR; Start 12/07/16 at 09: 30 Fentanyl 100 ml @ 2.5 mls/hr TITRATE IV Last administered on 12/09/16 14:49; Admin Dose 2.5 MLS/HR; Start 12/07/16 at 14:00 Midazolam HCl 50 ml @ 1 mls/hr TITRATE IV Last administered on 12/09/16 06:42 ; Admin Dose 1 MLS/HR; Start 12/07/16 at 14:00 Vasopressin 60 unit/Dextrose 60 ml @ 1.2 mls/hr Q12H IV Last administered on 21:54; Admin Dose 2.4 MLS/HR; Start 12/07/16 at 14:00 Sodium Bicarbonate/ Dextrose (Na Bicarb/D5W) 1,000 ml @ 100 mls/hr Q10H IV Last administered on 12/10/16 04:15; Admin Dose 100 MLS/HR; Start 12/07/16 at 17:30 Sodium Bicarbonate 650 mg 650 mg TID GTB Last administered on 12/10/16 13:06; Admin Dose 650 MG; Start 12/08/16 at 13:00 Amiodarone HCl 900 mg/Dextrose 500 ml @ 0 mls/hr Q0M IV Last administered on 17:30; Admin Dose 33.4 MLS/HR; Start 12/09/16 at 15:30 Imipenem/ Cilastatin Sodium (Primaxin 500 Mg/ 100 ml (Pmx)) 100 ml @ 100 mls/ hr Q12 IVPB Last administered on 12/10/16 09:04; Admin Dose 100 MLS/HR; Start 12/09/16 at 19:00 Sodium Hypochlorite 1 applic 1 applic BID IRR Last administered on 12/10/16 09 :05; Admin Dose 1 APPLIC; Start 12/09/16 at 21:00 Vancomycin HCl (Vancocin) 250 ml @ 125 mls/hr 1130 IVPB Last administered on 4 /29/17at 13:06; Admin Dose 125 MLS/HR; Start 12/10/16 at 11:30; Stop 12/10/16 at 23:00 CHELE CASE MD Dec 10, 2016 16:28
--- NOTE | 2016-12-10 17:57 | CONS ---
Date/Time of Note Date/Time of Note DATE: 12/10/16 TIME: 17:53 Assessment/Plan Assessment/Plan Chief Complaint/Hosp Course ID PROGRESS NOTE CURRENT ABX DAY #6 => Vanco IV #6 + Levaquin #6 + Primaxin #2 s/p Merrem + Bactrim @ [facility] = on chronic ABX for chronic rectal fistula/ abscess 24H INTERVAL SUMMARY * Remains on high dose pressors, obtunded, orally intubated/Vented * Low grade temps -- WBC down after restart Primaxin * Chronic progressive debility, respiratory failure, chronic sepsis due to rectal abscess, janneth-rectal fistula, ASP PNA * Lactic acid level elevated -- was waiting for sputum for C&S to change ABX -- appears was not sent- reordered for 12/09 * RESPIRATORY CULTURE Preliminary Organism 1 GRAM NEGATIVE LUCILA QUANTITY 2+ * Added Primaxin 12/09 PHYSICAL EXAMINATION: GENERAL: Cachectic, chronically debilitated, M orally intubated on pressors in the ICU HEENT: ETT/OGT secure NECK: Chronic hyperextended CHEST: Rise symmetrical/ course BS, rhonci on the Vent HEART: Pulse RRR ABDOMEN: Soft, peg EXTREMITIES: Muscle atrophy, gely prominences w/decub dsgs, wounds, skin tears : Urinary diversion (+)DIarrhea -> chronic rectal bleed chronic rectal fistula track/abscess SKIN: Mutiple decubs -- See wound photos ID ASSESSMENT 76 yo M admit with: 1. Advanced Parkinson's dementia w/depression, hx of meningioma, SDH, w/ supranuclear palsy, chronic encephalopathy 2. Metastatic CA of the tongue-> Hx of resection, chemo, XRT 3. Prostate Carcinoma 4. History of pelvic mass, presumed to be metastatic disease, near the area of the Prostate Gland 5. Obstructive uropathy due to pelvic mass w/chronic right hydronephrosis/ hydroureter 6. Urinary diversion per Dr. Kimbrough 7. Neurogenic bladder 8. Recurrent UTIs /hx of pyelonephritis 9. Dysphagia status post G-tube placement. 10. Aspiration syndrome w/recurrent aspiration pneumonitis and HCAP * 12/01 sputum cx (+)PSAR resistant to Quinolones * 12/09 sputum cx (+)GNR -> Pending 11. Hx of HTN, Atrial fibrillation, diastolic HF 12. Previous history of acute kidney injury/ATN. 13. History of GI bleed. 14. 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 Multiple decubitus wounds- STG III, Unstageable 16. Severe malnutrition, cachexia 17. Failure to thrive (-)MRSA Nares (-)VRE Screen 10/28 (+) CRE Screen 10/28 =(+)Carbapenemase resistant Enterobacteriaceae Stool INVASIVES: ETT, OGT, Peg, Suprapubic cath ABX ALLERGY: KNDA CURRENT ABX: #6 => Vanco IV #6 + Levaquin #6 + Primaxin #2 s/p Merrem + Bactrim @ [facility] = on chronic ABX for chronic rectal fistula/ abscess ID RECOMMENDATIONS 1. Continue ABX => Chronic Aspiration Pneumonitis vs PNA, chronic rectal abscess , chronic wounds * -> Note patient has chronic rectal fistula w/chronic abscess and recurring rectal bleeding, he has already undergone prior surgical attempts to repair the rectal fistula tract with recurrence. 2 ABX will not reverse poor prognosis; rather have been used a means to prolong the end of life process, patient is now colonized with CRE . . * Critically ill with multi-organ failure patient is palliative/hospice care appropriate; nevertheless he remains on aggressive medical plan of care. Problems: Consultation Date/Type/Reason Admit Date/Time Dec 07, 2016 at 01:03 Initial Consult Date 12/07/16 Type of Consultation: ID Exam/Review of Systems Vital Signs Vitals Vital Signs Date Time Temp Pulse Resp B/P Pulse Ox O2 Delivery O2 Flow Rate FiO2 12/10/16 17:32 89 24 100 50 12/10/16 15:30 92/50 Mechanical Ventilator 12/10/16 12:00 100.5 Intake and Output 12/09/16 12/09/16 12/10/16 15:00 23:00 07:00 Intake Total 1033.52 ml 987.42 ml 806.66 ml Output Total 120 ml 205 ml 290 ml Balance 913.52 ml 782.42 ml 516.66 ml Results Result Diagram: 12/10/16 0415 12/10/16 0415 Results 24 hrs Laboratory Tests Test 12/10/16 04:15 White Blood Count 22.1 #H Red Blood Count 3.00 L Hemoglobin 8.8 L Hematocrit 26.5 L Mean Corpuscular Volume 88.3 Mean Corpuscular Hemoglobin 29.3 Mean Corpuscular Hemoglobin Concent 33.2 Red Cell Distribution Width 16.0 H Platelet Count Mean Platelet Volume 13.0 H Neutrophils % 68.0 Band Neutrophils % 27.0 H Lymphocytes % 5.0 L Eosinophils % Neutrophils # 15.0 H Lymphocytes # 1.1 Eosinophils # Platelet Estimate PLT APPEAR ADEQUATE Sodium Level 131 L Potassium Level 3.7 Chloride Level 83 L Carbon Dioxide Level 32 H Anion Gap 20 H Blood Urea Nitrogen 118 H Creatinine 1.95 H Glucose Level 105 Lactic Acid Level 7.0 *H Calcium Level 6.2 L Phosphorus Level 6.1 H Magnesium Level 2.0 Total Bilirubin 0.1 L Direct Bilirubin 0.00 Indirect Bilirubin 0.1 Aspartate Amino Transf (AST/SGOT) 318 H Alanine Aminotransferase (ALT/SGPT) 242 H Alkaline Phosphatase 162 H Total Protein 4.1 L Albumin 1.7 L Random Vancomycin Level 8.8 Medications Medications Current Medications Ondansetron HCl (Zofran Inj) 4 mg Q6H PRN IV NAUSEA AND/OR VOMITING; Start at 02:00 Pantoprazole (Protonix Iv) 40 mg DAILY@06 IV Last administered on 12/10/16 05: 17; Admin Dose 40 MG; Start 12/07/16 at 06:00 Amiodarone HCl (Cordarone) 400 mg DAILY GTB Last administered on 12/09/16 08: 21; Admin Dose 400 MG; Start 12/07/16 at 09:00 Collagenase (Santyl) 1 applic DAILY TOP Last administered on 12/10/16 09:05; Admin Dose 1 APPLIC; Start 12/07/16 at 09:30 Collagenase 1 applic 1 applic PRN PRN TOP WOUND USE; Start 12/07/16 at 08:30 Levofloxacin/ Dextrose 100 ml @ 100 mls/hr Q48H IVPB Last administered on 12/09 08:21; Admin Dose 100 MLS/HR; Start 12/07/16 at 08:30 Phenylephrine HCl 160 mg/Dextrose 500 ml @ 18.75 mls/ hr TITRATE IV Last administered on 12/10/16 13:10; Admin Dose 20.49 MLS/HR; Start 12/07/16 at 11: 00 Norepinephrine 32 mg/Dextrose 250 ml @ 0.46 mls/hr TITRATE IV Last administered on 12/10/16 14:17; Admin Dose 14.06 MLS/HR; Start 12/07/16 at 09: 30 Fentanyl 100 ml @ 2.5 mls/hr TITRATE IV Last administered on 12/09/16 14:49; Admin Dose 2.5 MLS/HR; Start 12/07/16 at 14:00 Midazolam HCl 50 ml @ 1 mls/hr TITRATE IV Last administered on 12/09/16 06:42 ; Admin Dose 1 MLS/HR; Start 12/07/16 at 14:00 Vasopressin 60 unit/Dextrose 60 ml @ 1.2 mls/hr Q12H IV Last administered on 21:54; Admin Dose 2.4 MLS/HR; Start 12/07/16 at 14:00 Sodium Bicarbonate/ Dextrose (Na Bicarb/D5W) 1,000 ml @ 100 mls/hr Q10H IV Last administered on 12/10/16 04:15; Admin Dose 100 MLS/HR; Start 12/07/16 at 17:30 Sodium Bicarbonate 650 mg 650 mg TID GTB Last administered on 12/10/16 13:06; Admin Dose 650 MG; Start 12/08/16 at 13:00 Amiodarone HCl 900 mg/Dextrose 500 ml @ 0 mls/hr Q0M IV Last administered on 17:30; Admin Dose 33.4 MLS/HR; Start 12/09/16 at 15:30 Imipenem/ Cilastatin Sodium (Primaxin 500 Mg/ 100 ml (Pmx)) 100 ml @ 100 mls/ hr Q12 IVPB Last administered on 12/10/16 09:04; Admin Dose 100 MLS/HR; Start 12/09/16 at 19:00 Sodium Hypochlorite 1 applic 1 applic BID IRR Last administered on 12/10/16 09 :05; Admin Dose 1 APPLIC; Start 12/09/16 at 21:00 Vancomycin HCl (Vancocin) 250 ml @ 125 mls/hr 1130 IVPB Last administered on 13:06; Admin Dose 125 MLS/HR; Start 12/10/16 at 11:30; Stop 12/10/16 at 23:00 CEASAR VIEYRA NP Dec 10, 2016 17:57
[2016-12-11] VITALS (107 sets, daily range): BP systolic 76–159; BP diastolic 33–98; PULSE 0–149; RESP 16–25
[2016-12-11] MEDS: ALBUTEROL 18 GM INHALER INH SCH ×6 (01:54→21:16)
[2016-12-11] MEDS: PANTOPRAZOLE 40 MG INJ IV SCH (06:35)
[2016-12-11] MEDS: SODIUM BICARBONATE (IV ADD) 150 MEQ in DEXTROSE 5% 850 ML IV SCH ×2 (06:35→14:20)
[2016-12-11] MEDS: NORepinephrine 32 MG in DEXTROSE 5% 218 ML IV SCH ×2 (06:55→23:47)
[2016-12-11] MEDS: PHENYLephrine 160 MG in DEXTROSE 5% 484 ML IV SCH ×2 (06:56→19:29)
[2016-12-11] MEDS: VASOPRESSIN 60 UNIT in DEXTROSE 5% 57 ML IV SCH ×2 (06:57→14:00)
[2016-12-11 07:33] LABS: ADD SCAN DIFF NO
[2016-12-11 07:39] LABS: ABNORMAL IP MESSAGE 1; BASOPHIL # 0.1 10^3/ul (0.0-0.1); BASOPHILS % 0.3 % (0.0-2.0); HEMATOCRIT 26.9 % (42.0-52.0); HEMOGLOBIN 8.9 g/dl (14.0-18.0); LYMPHOCYTES # 0.7 10^3/ul (0.8-2.9); MEAN CORPUSCULAR HEMOGLOBIN 29.1 pg (29.0-33.0); MEAN CORPUSCULAR HGB CONC 33.1 g/dl (32.0-37.0); MEAN CORPUSCULAR VOLUME 87.9 fl (82.0-101.0); MEAN PLATELET VOLUME 13.1 fl (7.4-10.4); MONOCYTE # 0.9 10^3/ul (0.3-0.9); MONOCYTES % 3.7 % (0.0-11.0); NEUTROPHIL # 21.1 10^3/ul (1.6-7.5); NUCLEATED RED BLOOD CELLS% 0.1 /100WBC (0.0-0.0); PLATELET COUNT 160 10^3/UL (140-415); RED BLOOD COUNT 3.06 10^6/ul (4.70-6.10); RED CELL DISTRIBUTION WIDTH 16.1 % (11.5-14.5); WHITE BLOOD COUNT 23.5 10^3/ul (4.8-10.8)
[2016-12-11 07:49] LABS: ALBUMIN 1.8 g/dl (3.3-4.9); ALBUMIN/GLOBULIN RATIO 0.72; BILIRUBIN,INDIRECT 0.1 mg/dl (0-1.1); BILIRUBIN,TOTAL 0.1 mg/dl (0.2-1.3); CREATININE 2.1 mg/dl (0.61-1.24); MAGNESIUM 1.9 mg/dl (1.7-2.5); POTASSIUM 3.7 mmol/L (3.5-5.1); TOTAL PROTEIN 4.3 g/dl (6.1-8.1)
[2016-12-11 07:53] LABS: CALCIUM 5.4 mg/dl (8.4-10.2)
[2016-12-11] MEDS ORDERED: AMIODARONE 900 MG in DEXTROSE 5% 482 ML IV SCH (08:00)
--- NOTE | 2016-12-11 08:19 | CONS ---
Date/Time of Note Date/Time of Note DATE: 12/11/16 TIME: 08:17 Consult Date/Type/Reason Admit Date/Time Dec 07, 2016 at 01:03 Initial Consult Date 12/07/16 Type of Consultation: nephrology Subjective pt. seen and examined in icu. d/w yesterday he remains critically ill. gtube feeds were tried but high residual of dark green material. awaiting GI input. on pressors and vent at this time. dark loose bm noted. adequate uop per RN. PE: HEENT exam is; supple neck, a colostomy scar is present. Orally intubated. Patient has multiple carious teeth. Bilateral corneal opacities are present. Positive JVD. No lymphadenopathy. Supple neck. Chest examination; diminished but clear vessel. S1-S2 audible, no murmurs. Regular rhythm. Abdomen examination; soft, no organomegaly. G-tube in place. Bowel sounds audible. Extremity examination; no peripheral edema. Back examination reveals dressing applied over sacrum. TROLLEY OPERATOR examination; patient is sedated. Objective Vital Signs Date Time Temp Pulse Resp B/P Pulse Ox O2 Delivery O2 Flow Rate FiO2 12/11/16 07:45 149 24 121/62 100 Mechanical Ventilator 12/11/16 05:43 50 12/11/16 04:00 98.2 Intake and Output 12/10/16 12/10/16 12/11/16 15:00 23:00 07:00 Intake Total 1715.40 ml 564.74 ml 60 ml Output Total 270 ml 685 ml 300 ml Balance 1445.40 ml -120.26 ml -240 ml Results/Medications Result Diagram: 12/11/16 0503 12/11/16 0503 Results 24 hrs Laboratory Tests Test 12/11/16 05:03 White Blood Count 23.5 H Red Blood Count 3.06 L Hemoglobin 8.9 L Hematocrit 26.9 L Mean Corpuscular Volume 87.9 Mean Corpuscular Hemoglobin 29.1 Mean Corpuscular Hemoglobin Concent 33.1 Red Cell Distribution Width 16.1 H Platelet Count 160 # Mean Platelet Volume 13.1 H Neutrophils % 90.0 H Lymphocytes % 3.0 L Monocytes % 3.7 Eosinophils % 0.0 Basophils % 0.3 Nucleated Red Blood Cells % 0.1 H Neutrophils # 21.1 H Lymphocytes # 0.7 L Monocytes # 0.9 Eosinophils # 0.0 Basophils # 0.1 Nucleated Red Blood Cells # 0.0 Sodium Level 127 L Potassium Level 3.7 Chloride Level 79 L Carbon Dioxide Level 34 H Anion Gap 18 H Blood Urea Nitrogen 116 H Creatinine 2.10 H Glucose Level 113 Calcium Level 5.4 *L Phosphorus Level 6.6 H Magnesium Level 1.9 Total Bilirubin 0.1 L Direct Bilirubin 0.00 Indirect Bilirubin 0.1 Aspartate Amino Transf (AST/SGOT) 166 H Alanine Aminotransferase (ALT/SGPT) 138 H Alkaline Phosphatase 170 H Total Protein 4.3 L Albumin 1.8 L Globulin 2.50 Albumin/Globulin Ratio 0.72 Medications Current Medications Ondansetron HCl (Zofran Inj) 4 mg Q6H PRN IV NAUSEA AND/OR VOMITING; Start at 02:00 Pantoprazole (Protonix Iv) 40 mg DAILY@06 IV Last administered on 12/11/16 06: 35; Admin Dose 40 MG; Start 12/07/16 at 06:00 Amiodarone HCl (Cordarone) 400 mg DAILY GTB Last administered on 12/09/16 08: 21; Admin Dose 400 MG; Start 12/07/16 at 09:00 Collagenase (Santyl) 1 applic DAILY TOP Last administered on 12/10/16 09:05; Admin Dose 1 APPLIC; Start 12/07/16 at 09:30 Collagenase 1 applic 1 applic PRN PRN TOP WOUND USE; Start 12/07/16 at 08:30 Levofloxacin/ Dextrose 100 ml @ 100 mls/hr Q48H IVPB Last administered on 12/09 08:21; Admin Dose 100 MLS/HR; Start 12/07/16 at 08:30 Phenylephrine HCl 160 mg/Dextrose 500 ml @ 18.75 mls/ hr TITRATE IV Last administered on 12/11/16 06:56; Admin Dose 56.25 MLS/HR; Start 12/07/16 at 11: 00 Norepinephrine 32 mg/Dextrose 250 ml @ 0.46 mls/hr TITRATE IV Last administered on 12/11/16 06:55; Admin Dose 14.06 MLS/HR; Start 12/07/16 at 09: 30 Fentanyl 100 ml @ 2.5 mls/hr TITRATE IV Last administered on 12/09/16 14:49; Admin Dose 2.5 MLS/HR; Start 12/07/16 at 14:00 Midazolam HCl 50 ml @ 1 mls/hr TITRATE IV Last administered on 12/09/16 06:42 ; Admin Dose 1 MLS/HR; Start 12/07/16 at 14:00 Vasopressin 60 unit/Dextrose 60 ml @ 1.2 mls/hr Q12H IV Last administered on 06:57; Admin Dose 2.4 MLS/HR; Start 12/07/16 at 14:00 Sodium Bicarbonate/ Dextrose (Na Bicarb/D5W) 1,000 ml @ 100 mls/hr Q10H IV Last administered on 12/11/16 06:35; Admin Dose 100 MLS/HR; Start 12/07/16 at 17:30 Sodium Bicarbonate 650 mg 650 mg TID GTB Last administered on 12/10/16 21:37; Admin Dose 650 MG; Start 12/08/16 at 13:00 Imipenem/ Cilastatin Sodium (Primaxin 500 Mg/ 100 ml (Pmx)) 100 ml @ 100 mls/ hr Q12 IVPB Last administered on 12/10/16 21:30; Admin Dose 100 MLS/HR; Start 12/09/16 at 19:00 Sodium Hypochlorite 1 applic 1 applic BID IRR Last administered on 12/10/16 21 :25; Admin Dose 1 APPLIC; Start 12/09/16 at 21:00 Amiodarone HCl/ Dextrose (Cordarone Iv/ D5W) 500 ml @ 16.66 mls/ hr Q24H IV ; Start 12/11/16 at 08:00 Assessment/Plan Chief Complaint/Hosp Course 1. Septic shock. Underlying source is multifactorial secondary to decubitus wound, likely aspiration pneumonia or healthcare-associated pneumonia. The patient remains critically ill, on 3 pressors, broad spectrum antibiotics and IV fluids. At this point, continue the current treatment plan. Will follow up with Infectious Disease and the sales force developer for further recommendations. Will monitor closely. 2. Ventilatory-dependent respiratory failure. Vent settings have been reviewed. ABG has been reviewed. Continue to monitor. The patient is not a weaning candidate. 3. Oliguric acute kidney injury on top of chronic kidney disease, with a previous baseline creatinine of 2.75 mg/dL. Etiology of acute kidney injury is secondary to acute tubular necrosis due to shock, ischemic hypoperfusion and sepsis. The patient remains in the injury phase of acute tubular necrosis. At this point the patient remains hemodynamically unstable for hemodialysis. I spoke with the patient's , informing her of his instability for dialysis. She is aware. Otherwise would continue the current treatment plan. Continue to wean off or titrate down pressors, if possible. 4. Mixed acid base disorder. The patient has a metabolic acidosis and respiratory acidosis. The patient's pH is 7.256 with a pCO2 of 38. At this point will continue the bicarbonate drip. Will follow up serial ABGs and monitor. 5. Acute encephalopathy on top of chronic dementia. Etiology is toxic metabolic. Continue to monitor. 6. Anemia. The patient is status post 2 units of PRBC, with appropriate response. The patient is being followed by GI. No obvious evidence of gastrointestinal bleed. May consider a CT scan to rule out retroperitoneal hemorrhage. Monitor closely. 7. Mineral bone disorder. Monitor calcium and phosphorus levels. 8. Atrial fibrillation. Currently rate controlled. Continue to monitor. Follow up with cardiology. 9. Bilateral hydronephrosis secondary to pelvic mass and underlying malignancy. The patient is to be seen by Dr. Kimbrough. Continue to monitor. 10. Leukocytosis secondary to underlying sepsis. Continue the current treatment plan. 11. History of tongue cancer, with possible metastasis to the pelvis. Continue to monitor. 12. Dysphagia. Status post PEG. The patient's tube feedings are currently on hold. Will continue to observe. 13. Multiple decubitus wounds. Continue wound care. Will place a general surgical consult with Dr. Vu once the patient is clinically stable. 14. Transaminitis and elevated alkaline phosphatase, likely secondary to sepsis and shock liver. Continue to monitor. Follow up with GI. 15. Gastrointestinal and deep venous thrombosis prophylaxis. Continue proton pump inhibitor and sequential leg squeezers. Please note, I spent over 40 minutes of critical care time with this patient. Problems: XAVIER SON MD Dec 11, 2016 08:19
[2016-12-11] MEDS: LEVOFLOXACIN 500MG/D5W (PMX) 100 ML IVPB SCH (08:23)
[2016-12-11] MEDS: NA BICARBONATE 650 MG TAB GTB SCH ×3 (08:38→20:34)
[2016-12-11] MEDS: AMIODARONE 200 MG TAB GTB SCH (08:39)
[2016-12-11] MEDS: IMIPENEM-CILAST 500MG IV (PMX) 100 ML IVPB SCH (09:24)
[2016-12-11] MEDS: COLLAGENASE 30 GM TUBE TOP SCH (09:24)
[2016-12-11] MEDS: SODIUM HYPOCHLORITE 0.125% 473 ML BTL IRR SCH ×2 (09:25→20:34)
--- NOTE | 2016-12-11 11:43 | CONS ---
Date/Time of Note Date/Time of Note DATE: 12/11/16 TIME: 11:40 Assessment/Plan Assessment/Plan Additional Assessment/Plan Ventilator settings; AC of 24, tidal volume 500, PEEP of 0, 50% FiO2. Patient currently on phenylephrine drip at 250 mics per minute, vasopressin at 0.0 0.5 U/min, Levophed at 30 mics per minute. Amiodarone 0.5 mg/min. Assessment recommendations; 1. Patient admitted with severe sepsis due to multiple decubitus ulcers. 2. Advanced Parkinson's disease. 3. Prior history of tracheostomy. 4. Atrial fibrillation. 5. Worsening renal function. 6. Severe shock. 7. Metastatic glossal cancer. 8. Right hydronephrosis. Continue current supportive care. Prognosis is dismal. Consultation Date/Type/Reason Admit Date/Time Dec 07, 2016 at 01:03 Initial Consult Date 12/07/16 Type of Consultation: Pulmonary/critical care 24 HR Interval Summary Free Text/Dictation Patient condition remains critical. Still requiring high-dose pressor support for blood pressure maintenance. Remains unresponsive. Exam; elderly male, or intubated, unresponsive. Exam/Review of Systems Vital Signs Vitals Vital Signs Date Time Temp Pulse Resp B/P Pulse Ox O2 Delivery O2 Flow Rate FiO2 12/11/16 09:33 91 24 100 50 12/11/16 08:45 99/58 Mechanical Ventilator 12/11/16 08:00 98.5 Intake and Output 12/10/16 12/10/16 12/11/16 15:00 23:00 07:00 Intake Total 1715.40 ml 1135.38 ml 764.87 ml Output Total 270 ml 685 ml 310 ml Balance 1445.40 ml 450.38 ml 454.87 ml Exam HEENT exam is; supple neck, patient has bilateral corneal opacities. He has multiple carious teeth. Orally intubated. No neck masses. Supple neck. There is a well-healed tracheostomy scar. Chest examination a micro diminished but clear vessel bilaterally. S1-S2 audible, no murmurs. Irregular rhythm. Abdomen examination of Abiel scaphoid, G-tube in place. No organomegaly. Bowel sounds are very sluggish. Back examination; dressing applied over sacrum. Extremity exam is; no peripheral edema. PATHOLOGY SECRETARY/TRANSCRIPTIONIST examination; patient remains unresponsive. Results Result Diagram: 12/11/16 0503 12/11/16 0503 Results 24 hrs Laboratory Tests Test 12/11/16 05:03 White Blood Count 23.5 H Red Blood Count 3.06 L Hemoglobin 8.9 L Hematocrit 26.9 L Mean Corpuscular Volume 87.9 Mean Corpuscular Hemoglobin 29.1 Mean Corpuscular Hemoglobin Concent 33.1 Red Cell Distribution Width 16.1 H Platelet Count 160 # Mean Platelet Volume 13.1 H Neutrophils % 90.0 H Lymphocytes % 3.0 L Monocytes % 3.7 Eosinophils % 0.0 Basophils % 0.3 Nucleated Red Blood Cells % 0.1 H Neutrophils # 21.1 H Lymphocytes # 0.7 L Monocytes # 0.9 Eosinophils # 0.0 Basophils # 0.1 Nucleated Red Blood Cells # 0.0 Sodium Level 127 L Potassium Level 3.7 Chloride Level 79 L Carbon Dioxide Level 34 H Anion Gap 18 H Blood Urea Nitrogen 116 H Creatinine 2.10 H Glucose Level 113 Calcium Level 5.4 *L Phosphorus Level 6.6 H Magnesium Level 1.9 Total Bilirubin 0.1 L Direct Bilirubin 0.00 Indirect Bilirubin 0.1 Aspartate Amino Transf (AST/SGOT) 166 H Alanine Aminotransferase (ALT/SGPT) 138 H Alkaline Phosphatase 170 H Total Protein 4.3 L Albumin 1.8 L Globulin 2.50 Albumin/Globulin Ratio 0.72 Medications Medications Current Medications Ondansetron HCl (Zofran Inj) 4 mg Q6H PRN IV NAUSEA AND/OR VOMITING; Start at 02:00 Pantoprazole (Protonix Iv) 40 mg DAILY@06 IV Last administered on 12/11/16 06: 35; Admin Dose 40 MG; Start 12/07/16 at 06:00 Amiodarone HCl (Cordarone) 400 mg DAILY GTB Last administered on 12/11/16 08: 39; Admin Dose 400 MG; Start 12/07/16 at 09:00 Collagenase (Santyl) 1 applic DAILY TOP Last administered on 12/11/16 09:24; Admin Dose 1 APPLIC; Start 12/07/16 at 09:30 Collagenase 1 applic 1 applic PRN PRN TOP WOUND USE; Start 12/07/16 at 08:30 Levofloxacin/ Dextrose 100 ml @ 100 mls/hr Q48H IVPB Last administered on 12/11 08:23; Admin Dose 100 MLS/HR; Start 12/07/16 at 08:30 Phenylephrine HCl 160 mg/Dextrose 500 ml @ 18.75 mls/ hr TITRATE IV Last administered on 12/11/16 06:56; Admin Dose 56.25 MLS/HR; Start 12/07/16 at 11: 00 Norepinephrine 32 mg/Dextrose 250 ml @ 0.46 mls/hr TITRATE IV Last administered on 12/11/16 06:55; Admin Dose 14.06 MLS/HR; Start 12/07/16 at 09: 30 Fentanyl 100 ml @ 2.5 mls/hr TITRATE IV Last administered on 12/09/16 14:49; Admin Dose 2.5 MLS/HR; Start 12/07/16 at 14:00 Midazolam HCl 50 ml @ 1 mls/hr TITRATE IV Last administered on 12/09/16 06:42 ; Admin Dose 1 MLS/HR; Start 12/07/16 at 14:00 Vasopressin 60 unit/Dextrose 60 ml @ 1.2 mls/hr Q12H IV Last administered on 06:57; Admin Dose 2.4 MLS/HR; Start 12/07/16 at 14:00 Sodium Bicarbonate/ Dextrose (Na Bicarb/D5W) 1,000 ml @ 100 mls/hr Q10H IV Last administered on 12/11/16 06:35; Admin Dose 100 MLS/HR; Start 12/07/16 at 17:30 Sodium Bicarbonate 650 mg 650 mg TID GTB Last administered on 12/11/16 08:38; Admin Dose 650 MG; Start 12/08/16 at 13:00 Imipenem/ Cilastatin Sodium (Primaxin 500 Mg/ 100 ml (Pmx)) 100 ml @ 100 mls/ hr Q12 IVPB Last administered on 12/11/16 09:24; Admin Dose 100 MLS/HR; Start 12/09/16 at 19:00 Sodium Hypochlorite 1 applic 1 applic BID IRR Last administered on 12/11/16 09 :25; Admin Dose 1 APPLIC; Start 12/09/16 at 21:00 Amiodarone HCl/ Dextrose (Cordarone Iv/ D5W) 500 ml @ 16.66 mls/ hr Q24H IV Last administered on 12/11/16 09:03; Admin Dose 16.66 MLS/HR; Start 12/11/16 at 08:00 WERNER CHURCH Dec 11, 2016 11:43
--- NOTE | 2016-12-11 12:35 | CONS ---
Date/Time of Note Date/Time of Note DATE: 12/11/16 TIME: 12:34 Assessment/Plan Assessment/Plan Additional Assessment/Plan IMPRESSION: 1. Septic shock. Patient on 3 pressor support 2. Severe anemia. 3. Prerenal azotemia. 4. Prostate cancer. 5. Tongue cancer. 6. Parkinson's disease. 7. Dementia. 8. Respiratory failure. 9. Abnormal liver function tests. Patient has a multiple non-defined lesion in the liver 10. Atrial fibrillation. 11. Hydronephrosis. 12. Rectal bleeding probably from the tumor invading the rectum. 13. Gastroparesis Plan Continue antibiotic Continue all the supportive care Continue vent support and nutrition. Will monitor WBC count and hematocrit closely. Patient prognosis remains poor. Will start patient on erythromycin Consultation Date/Type/Reason Admit Date/Time Dec 07, 2016 at 01:03 Initial Consult Date 12/07/16 Type of Consultation: Pulmonary/critical care 24 HR Interval Summary Subjective hx not possible: pt critical Exam/Review of Systems Vital Signs Vitals Vital Signs Date Time Temp Pulse Resp B/P Pulse Ox O2 Delivery O2 Flow Rate FiO2 12/11/16 12:00 98.7 97 24 113/55 100 Mechanical Ventilator 12/11/16 09:33 50 Intake and Output 12/10/16 12/10/16 12/11/16 15:00 23:00 07:00 Intake Total 1715.40 ml 1135.38 ml 764.87 ml Output Total 270 ml 685 ml 310 ml Balance 1445.40 ml 450.38 ml 454.87 ml Exam Constitutional: alert, oriented, well developed Psych: nl mood/affect, no complaints Head: atraumatic, normocephalic Eyes: EOMI, PERRL, nl conjunctiva, nl lids, nl sclera ENMT: nl external ears & nose, nl lips & teeth, nl nasal mucosa & septum Neck: non-tender, supple Respiratory: clear to auscultation, normal air movement Cardiovascular: nl pulses, regular rate and rhythm Gastrointestinal: nl liver, spleen, non-tender, soft Musculoskeletal: nl extremities to inspection, nl gait and stance Extremities: normal pulses Neurological: TASSEL CLIPPER II-XII intact, nl mental status, nl speech, nl strength Skin: nl turgor, No rash or lesions Lymph: nl lymph nodes Results Result Diagram: 12/11/16 0503 12/11/16 0503 Results 24 hrs Laboratory Tests Test 12/11/16 05:03 White Blood Count 23.5 H Red Blood Count 3.06 L Hemoglobin 8.9 L Hematocrit 26.9 L Mean Corpuscular Volume 87.9 Mean Corpuscular Hemoglobin 29.1 Mean Corpuscular Hemoglobin Concent 33.1 Red Cell Distribution Width 16.1 H Platelet Count 160 # Mean Platelet Volume 13.1 H Neutrophils % 90.0 H Lymphocytes % 3.0 L Monocytes % 3.7 Eosinophils % 0.0 Basophils % 0.3 Nucleated Red Blood Cells % 0.1 H Neutrophils # 21.1 H Lymphocytes # 0.7 L Monocytes # 0.9 Eosinophils # 0.0 Basophils # 0.1 Nucleated Red Blood Cells # 0.0 Sodium Level 127 L Potassium Level 3.7 Chloride Level 79 L Carbon Dioxide Level 34 H Anion Gap 18 H Blood Urea Nitrogen 116 H Creatinine 2.10 H Glucose Level 113 Calcium Level 5.4 *L Phosphorus Level 6.6 H Magnesium Level 1.9 Total Bilirubin 0.1 L Direct Bilirubin 0.00 Indirect Bilirubin 0.1 Aspartate Amino Transf (AST/SGOT) 166 H Alanine Aminotransferase (ALT/SGPT) 138 H Alkaline Phosphatase 170 H Total Protein 4.3 L Albumin 1.8 L Globulin 2.50 Albumin/Globulin Ratio 0.72 Medications Medications Current Medications Ondansetron HCl (Zofran Inj) 4 mg Q6H PRN IV NAUSEA AND/OR VOMITING; Start at 02:00 Pantoprazole (Protonix Iv) 40 mg DAILY@06 IV Last administered on 12/11/16 06: 35; Admin Dose 40 MG; Start 12/07/16 at 06:00 Amiodarone HCl (Cordarone) 400 mg DAILY GTB Last administered on 12/11/16 08: 39; Admin Dose 400 MG; Start 12/07/16 at 09:00 Collagenase (Santyl) 1 applic DAILY TOP Last administered on 12/11/16 09:24; Admin Dose 1 APPLIC; Start 12/07/16 at 09:30 Collagenase 1 applic 1 applic PRN PRN TOP WOUND USE; Start 12/07/16 at 08:30 Levofloxacin/ Dextrose 100 ml @ 100 mls/hr Q48H IVPB Last administered on 12/11 08:23; Admin Dose 100 MLS/HR; Start 12/07/16 at 08:30 Phenylephrine HCl 160 mg/Dextrose 500 ml @ 18.75 mls/ hr TITRATE IV Last administered on 12/11/16 06:56; Admin Dose 56.25 MLS/HR; Start 12/07/16 at 11: 00 Norepinephrine 32 mg/Dextrose 250 ml @ 0.46 mls/hr TITRATE IV Last administered on 12/11/16 06:55; Admin Dose 14.06 MLS/HR; Start 12/07/16 at 09: 30 Fentanyl 100 ml @ 2.5 mls/hr TITRATE IV Last administered on 12/09/16 14:49; Admin Dose 2.5 MLS/HR; Start 12/07/16 at 14:00 Midazolam HCl 50 ml @ 1 mls/hr TITRATE IV Last administered on 12/09/16 06:42 ; Admin Dose 1 MLS/HR; Start 12/07/16 at 14:00 Vasopressin 60 unit/Dextrose 60 ml @ 1.2 mls/hr Q12H IV Last administered on 06:57; Admin Dose 2.4 MLS/HR; Start 12/07/16 at 14:00 Sodium Bicarbonate/ Dextrose (Na Bicarb/D5W) 1,000 ml @ 100 mls/hr Q10H IV Last administered on 12/11/16 06:35; Admin Dose 100 MLS/HR; Start 12/07/16 at 17:30 Sodium Bicarbonate 650 mg 650 mg TID GTB Last administered on 12/11/16 08:38; Admin Dose 650 MG; Start 12/08/16 at 13:00 Imipenem/ Cilastatin Sodium (Primaxin 500 Mg/ 100 ml (Pmx)) 100 ml @ 100 mls/ hr Q12 IVPB Last administered on 12/11/16 09:24; Admin Dose 100 MLS/HR; Start 12/09/16 at 19:00 Sodium Hypochlorite 1 applic 1 applic BID IRR Last administered on 12/11/16 09 :25; Admin Dose 1 APPLIC; Start 12/09/16 at 21:00 Amiodarone HCl/ Dextrose (Cordarone Iv/ D5W) 500 ml @ 16.66 mls/ hr Q24H IV Last administered on 12/11/16 09:03; Admin Dose 16.66 MLS/HR; Start 12/11/16 at 08:00 CHELE CASE MD Dec 11, 2016 12:35
--- NOTE | 2016-12-11 12:41 | CONS ---
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 MULTI DRUG RESISTANT ORGANISM * RESPIRATORY CULTURE Final Organism 1 ACINETOBACTER BAUMANNII QUANTITY 2+ ACINETOBACTER BAUMANII, MDRO PHONED TO Raeann GREENE,ICU,1052,12/11/16.TT Phoned to AMY,1112,12/11/16.TT JESSICA SchulzIAryCAry RX --------- --- AMIKACIN R CEFTAZIDIME >=64 R CIPROFLOXACIN >=4 R GENTAMICIN >=16 R IMIPENEM >=16 R LEVOFLOXACIN >=8 R TOBRAMYCIN >=16 R PIPERACILLIN/TAZOBACTAM >=128 R PHYSICAL EXAMINATION: GENERAL: Cachectic, chronically debilitated, M orally intubated on pressors in the ICU HEENT: ETT/OGT secure NECK: Chronic hyperextended CHEST: Rise symmetrical/ course BS, rhonci on the Vent HEART: Pulse RRR ABDOMEN: Soft, peg EXTREMITIES: Muscle atrophy, gely prominences w/decub dsgs, wounds, skin tears : Urinary diversion (+)DIarrhea -> chronic rectal bleed chronic rectal fistula track/abscess SKIN: Mutiple decubs -- See wound photos ID ASSESSMENT 76 yo M admit with: 1. Advanced Parkinson's dementia w/depression, hx of meningioma, SDH, w/ supranuclear palsy, chronic encephalopathy 2. Metastatic CA of the tongue-> Hx of resection, chemo, XRT 3. Prostate Carcinoma 4. History of pelvic mass, presumed to be metastatic disease, near the area of the Prostate Gland 5. Obstructive uropathy due to pelvic mass w/chronic right hydronephrosis/ hydroureter => Urinary diversion per Dr. Kimbrough 6. Neurogenic bladder 7. Recurrent UTIs /hx of pyelonephritis 8. CLEM -> UO improved 12/11 9. Dysphagia status post G-tube placement. 10. Aspiration syndrome w/recurrent aspiration pneumonitis and HCAP * 12/01 sputum cx (+)PSAR resistant to Quinolones * 12/09 sputum cx (+)GNR -> Pending 11. Atrial fibrillation 12 Hx of HTN w/ HTN heart disease, diastolic HF 13. History of GI bleed. 14. 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 Multiple decubitus wounds- STG III, Unstageable 16. Severe malnutrition, cachexia 17. Failure to thrive (-)MRSA Nares (-)VRE Screen 10/28 (+) CRE Screen 10/28 =(+)Carbapenemase resistant Enterobacteriaceae Stool INVASIVES: ETT, OGT, Peg, Suprapubic cath ABX ALLERGY: KNDA CURRENT ABX: DAY #7 => ABX CHANGED TODAY 12/11 : Zyvox #1, Colistin IV #1, Flagyl #1 s/p Merrem + Bactrim @ [facility] = on chronic ABX for chronic rectal fistula/ abscess ID RECOMMENDATIONS CONTINUE ABX INDICATION: * => Chronic Aspiration Pneumonitis vs PNA, chronic rectal abscess, chronic wounds * => Note patient has chronic rectal fistula w/chronic abscess and recurring rectal bleeding, he has already undergone prior surgical attempts to repair the rectal fistula tract with recurrence. 1. Vanco IV #7 + Levaquin #7 + Primaxin #3=> DC TODAY 12/11 2. Start Zyvox(+)VRE w/chronic infected rectal fistula w/abscess per hx and per WBC scan 3. Start Colimycin(+)ACBA HCAP 4. Flagyl via OGT (was advised translator/interpreter shortage of IV Flagyl) 5. Promote ethic of futility -- now starting Colimycin which is renal toxic - ABX Rx will not reverse the poor prognosis, rather ABX are contributing to his progressive MDRO breeding with persistent sepsis, and are associated w/RISKS. Zyvox will lead to further bone marrow depression and cytotoxic thrombocytopenia , Colimycin is neuro and renal toxic. ABX are now being employed as a means to prolong the end of life process, which also prolongs the patients sepsis and CONTRIBUTES to his multi-organ failure, patient is now colonized with CRE, VRE, MDRO-PSAR. . . * Critically ill with multi-organ failure patient is palliative/hospice care appropriate; nevertheless he remains on aggressive medical plan of care. Problems: Consultation Date/Type/Reason Admit Date/Time Dec 07, 2016 at 01:03 Initial Consult Date 12/07/16 Type of Consultation: ID Exam/Review of Systems Vital Signs Vitals Vital Signs Date Time Temp Pulse Resp B/P Pulse Ox O2 Delivery O2 Flow Rate FiO2 12/11/16 09:33 91 24 100 50 12/11/16 08:45 99/58 Mechanical Ventilator 12/11/16 08:00 98.5 Intake and Output 12/10/16 12/10/16 12/11/16 15:00 23:00 07:00 Intake Total 1715.40 ml 1135.38 ml 764.87 ml Output Total 270 ml 685 ml 310 ml Balance 1445.40 ml 450.38 ml 454.87 ml Results Result Diagram: 12/11/16 0503 12/11/16 0503 Results 24 hrs Laboratory Tests Test 12/11/16 05:03 White Blood Count 23.5 H Red Blood Count 3.06 L Hemoglobin 8.9 L Hematocrit 26.9 L Mean Corpuscular Volume 87.9 Mean Corpuscular Hemoglobin 29.1 Mean Corpuscular Hemoglobin Concent 33.1 Red Cell Distribution Width 16.1 H Platelet Count 160 # Mean Platelet Volume 13.1 H Neutrophils % 90.0 H Lymphocytes % 3.0 L Monocytes % 3.7 Eosinophils % 0.0 Basophils % 0.3 Nucleated Red Blood Cells % 0.1 H Neutrophils # 21.1 H Lymphocytes # 0.7 L Monocytes # 0.9 Eosinophils # 0.0 Basophils # 0.1 Nucleated Red Blood Cells # 0.0 Sodium Level 127 L Potassium Level 3.7 Chloride Level 79 L Carbon Dioxide Level 34 H Anion Gap 18 H Blood Urea Nitrogen 116 H Creatinine 2.10 H Glucose Level 113 Calcium Level 5.4 *L Phosphorus Level 6.6 H Magnesium Level 1.9 Total Bilirubin 0.1 L Direct Bilirubin 0.00 Indirect Bilirubin 0.1 Aspartate Amino Transf (AST/SGOT) 166 H Alanine Aminotransferase (ALT/SGPT) 138 H Alkaline Phosphatase 170 H Total Protein 4.3 L Albumin 1.8 L Globulin 2.50 Albumin/Globulin Ratio 0.72 Medications Medications Current Medications Ondansetron HCl (Zofran Inj) 4 mg Q6H PRN IV NAUSEA AND/OR VOMITING; Start at 02:00 Pantoprazole (Protonix Iv) 40 mg DAILY@06 IV Last administered on 12/11/16 06: 35; Admin Dose 40 MG; Start 12/07/16 at 06:00 Amiodarone HCl (Cordarone) 400 mg DAILY GTB Last administered on 12/11/16 08: 39; Admin Dose 400 MG; Start 12/07/16 at 09:00 Collagenase (Santyl) 1 applic DAILY TOP Last administered on 12/11/16 09:24; Admin Dose 1 APPLIC; Start 12/07/16 at 09:30 Collagenase 1 applic 1 applic PRN PRN TOP WOUND USE; Start 12/07/16 at 08:30 Levofloxacin/ Dextrose 100 ml @ 100 mls/hr Q48H IVPB Last administered on 12/11 08:23; Admin Dose 100 MLS/HR; Start 12/07/16 at 08:30 Phenylephrine HCl 160 mg/Dextrose 500 ml @ 18.75 mls/ hr TITRATE IV Last administered on 12/11/16 06:56; Admin Dose 56.25 MLS/HR; Start 12/07/16 at 11: 00 Norepinephrine 32 mg/Dextrose 250 ml @ 0.46 mls/hr TITRATE IV Last administered on 12/11/16 06:55; Admin Dose 14.06 MLS/HR; Start 12/07/16 at 09: 30 Fentanyl 100 ml @ 2.5 mls/hr TITRATE IV Last administered on 12/09/16 14:49; Admin Dose 2.5 MLS/HR; Start 12/07/16 at 14:00 Midazolam HCl 50 ml @ 1 mls/hr TITRATE IV Last administered on 12/09/16 06:42 ; Admin Dose 1 MLS/HR; Start 12/07/16 at 14:00 Vasopressin 60 unit/Dextrose 60 ml @ 1.2 mls/hr Q12H IV Last administered on 06:57; Admin Dose 2.4 MLS/HR; Start 12/07/16 at 14:00 Sodium Bicarbonate/ Dextrose (Na Bicarb/D5W) 1,000 ml @ 100 mls/hr Q10H IV Last administered on 12/11/16 06:35; Admin Dose 100 MLS/HR; Start 12/07/16 at 17:30 Sodium Bicarbonate 650 mg 650 mg TID GTB Last administered on 12/11/16 08:38; Admin Dose 650 MG; Start 12/08/16 at 13:00 Imipenem/ Cilastatin Sodium (Primaxin 500 Mg/ 100 ml (Pmx)) 100 ml @ 100 mls/ hr Q12 IVPB Last administered on 12/11/16 09:24; Admin Dose 100 MLS/HR; Start 12/09/16 at 19:00 Sodium Hypochlorite 1 applic 1 applic BID IRR Last administered on 12/11/16 09 :25; Admin Dose 1 APPLIC; Start 12/09/16 at 21:00 Amiodarone HCl/ Dextrose (Cordarone Iv/ D5W) 500 ml @ 16.66 mls/ hr Q24H IV Last administered on 12/11/16 09:03; Admin Dose 16.66 MLS/HR; Start 12/11/16 at 08:00 CEASAR VIEYRA NP Dec 11, 2016 12:34
[2016-12-11] MEDS ORDERED: METOCLOPRAMIDE 10 MG INJ IV SCH (13:00)
[2016-12-11] MEDS: COLISTIMETHATE 75 MG in SOD CHLORIDE 0.9% 100 ML IVPB SCH ×2 (15:03→20:34)
--- NOTE | 2016-12-11 15:15 | PN ---
DATE: 12/11/2016 SUBJECTIVE: The patient is on a respirator and vasopressors. He is not expressing any symptoms. T he patient does have a suprapubic tube and he is in respiratory failure and also he has had cancer o f the tongue, status post surgery and also prostate cancer status post radiation. He has a pelvic m ass that is cancerous, but the origin of the cancer is debated whether it is from the tongue from a urothelial cancer. The patient, because of his urinary retention and difficulty inserting a Cruz c atheter, had a suprapubic tube which has been changed at least twice to have a better drainage with a larger size catheter. OBJECTIVE: VITAL SIGNS: Temperature is 98.7, pulse of 94, respiration 24, blood pressure 113/55. The suprapub ic tube is draining clear urine. LABORATORY DATA: His CBC shows a white count of 23.5, hemoglobin 8.9, hematocrit 26.9. The BUN is 116, creatinine 2.1. IMPRESSION: The patient is in respiratory failure, and he is on a respirator and respiratory suppor t and vasopressors. From a urological standpoint, the suprapubic tube is in good place and draining clear urine and the rest of the care is by the hospitalist and the other doctors on the case. Dictated By: SERJIO JEFFERSON/CHELSI Conf#: [id number] DID#: [id number]
[2016-12-11] MEDS: ERYTHROMYCIN LACTOBIONATE 250 MG in SOD CHLORIDE 0.9% 100 ML IVPB SCH ×2 (18:45→23:54)
[2016-12-11] MEDS: metroNIDAZOLE 250 MG TAB NGT SCH ×2 (18:50→23:54)
[2016-12-11] MEDS: LINEZOLID 600 MG/D5W (PMX) 300 ML IVPB SCH (21:28)
[2016-12-11] MEDS: FENTAnyl (DRIP) 1000 mcg/100mL 100 ML IV SCH (22:54)
[2016-12-12] VITALS (105 sets, daily range): BP systolic 83–135; BP diastolic 50–94; PULSE 70–99; RESP 14–26
[2016-12-12] MEDS: SODIUM BICARBONATE (IV ADD) 150 MEQ in DEXTROSE 5% 850 ML IV SCH (00:33)
[2016-12-12] MEDS: ALBUTEROL 18 GM INHALER INH SCH ×6 (01:19→20:15)
[2016-12-12] MEDS: VASOPRESSIN 60 UNIT in DEXTROSE 5% 57 ML IV SCH (02:00)
[2016-12-12 04:39] LABS: ADD SCAN DIFF NO
[2016-12-12 04:44] LABS: ABNORMAL IP MESSAGE 1; BASOPHIL # 0.1 10^3/ul (0.0-0.1); BASOPHILS % 0.3 % (0.0-2.0); HEMATOCRIT 28.2 % (42.0-52.0); HEMOGLOBIN 9.2 g/dl (14.0-18.0); LYMPHOCYTES # 0.9 10^3/ul (0.8-2.9); LYMPHOCYTES % 3.1 % (15.0-51.0); MEAN CORPUSCULAR HEMOGLOBIN 28.7 pg (29.0-33.0); MEAN CORPUSCULAR HGB CONC 32.6 g/dl (32.0-37.0); MEAN CORPUSCULAR VOLUME 87.9 fl (82.0-101.0); MONOCYTE # 1.1 10^3/ul (0.3-0.9); NEUTROPHIL # 24.7 10^3/ul (1.6-7.5); NEUTROPHILS % 89.1 % (39.0-77.0); NUCLEATED RED BLOOD CELLS% 0.1 /100WBC (0.0-0.0); PLATELET COUNT 137 10^3/UL (140-415); RED BLOOD COUNT 3.21 10^6/ul (4.70-6.10); RED CELL DISTRIBUTION WIDTH 16.1 % (11.5-14.5); WHITE BLOOD COUNT 27.7 10^3/ul (4.8-10.8)
[2016-12-12 04:59] LABS: POTASSIUM 3.2 mmol/L (3.5-5.1)
[2016-12-12 05:02] LABS: CREATININE 2.15 mg/dl (0.61-1.24)
[2016-12-12 05:03] LABS: MAGNESIUM 1.7 mg/dl (1.7-2.5); PHOSPHORUS 6.6 mg/dl (2.5-4.9)
[2016-12-12 06:05] LABS: CALCIUM 5.1 mg/dl (8.4-10.2)
[2016-12-12] MEDS: ERYTHROMYCIN LACTOBIONATE 250 MG in SOD CHLORIDE 0.9% 100 ML IVPB SCH ×4 (06:12→23:38)
[2016-12-12] MEDS: PANTOPRAZOLE 40 MG INJ IV SCH (06:12)
[2016-12-12] MEDS: metroNIDAZOLE 250 MG TAB NGT SCH ×4 (06:12→23:38)
--- NOTE | 2016-12-12 07:22 | PN ---
DATE: 12/11/2016 CARDIOLOGY FOLLOWUP SUBJECTIVE: Discussed with the staff in the ICU. Rhythm strip was reviewed. The patient remains i ntubated on the vent, nonresponsive. Multiple pressors still. Rhythm strips were reviewed. Has gan d multiple episodes of nonsustained as well as 1 sustained VT. The patient has spontaneously conver graciela back to sinus rhythm. MEDICATIONS: Reviewed as per medication reconciliation, personally reviewed. PHYSICAL EXAMINATION: VITAL SIGNS: Temperature 98.2, heart rate of 90, blood pressure of 108/64, respiratory rate of 24, saturating 100%. HEENT: Normocephalic, atraumatic. Eyes are open, but does not follow command. CARDIOVASCULAR: Regular rate and rhythm. Systolic murmur. PULMONARY: Diffuse rhonchi. GASTROINTESTINAL: Soft, status post PEG placement. ____ EXTREMITIES: Diffuse edema. Also with cyanotic foot. ____ surgery which appear to be blackened and probably cyanotic. NEUROLOGIC: Unresponsive to verbal stimuli. LABORATORY: WBC of 23.5, hemoglobin 8.9, platelet 160. Sodium 127, potassium 3.7, BUN of 116, crea tinine 2.1, calcium is 5.4. Lactic acid as of yesterday was 7, ALT of ____, AST of ____. ASSESSMENT AND PLAN: 1. Severe sepsis. 2. Septic shock. 3. Ventricular tachycardia, nonsustained as well as nonsustained episodes. 4. Paroxysmal atrial fibrillation. 5. Acute on chronic hypoxemic hypercapnic respiratory failure, status post intubation now. 6. Severe encephalopathy. 7. History of gastrointestinal bleed and severe anemia. 8. Multiple decubitus ulcers. 9. History of prostate carcinoma. RECOMMENDATIONS: We will continue full support as per 's wishes. Code status was still FULL CO DE. Multiple pressors will be continued. I will start the patient on amiodarone drip at a dose of 0.5 mg given his recurrent AFib as well as now with sustained and nonsustained ventricular tachycard ia. Electrolytes will be managed and adjusted as per renal team. Vent support will be continued. Antibiotic is managed as per ID's recommendation. We will continue with the ICU care. Prognosis is very poor though. More than 40 minutes of critical care time was spent in management of this patient excluding any pro cedures. Dictated By: KATIE DURÁN MD AV/CHELSI Conf#: [id number] DID#: [id number]
[2016-12-12] MEDS ORDERED: POTASSIUM CHLORIDE 250 ML IVPB ONE (08:30)
[2016-12-12 08:36] LABS: AADO2 Arterial 212.1 mmHg (7.0-24.0); Allen Test ACCEPTAB; Arterial Base Excess 11.5 mmol/L (-3.0-3); Arterial COHb 0.2 % (0.0-3.0); Arterial Fraction of Oxyhgb 97.1 % (93.0-99.0); Arterial HCO3 32.7 mmol/L (22.0-26.0); Arterial MetHb 0.6 % (0.0-1.5); Arterial Total Hemglobin 10.2 g/dl (12.0-18.0); MODE VENT - AC
[2016-12-12] MEDS: COLLAGENASE 30 GM TUBE TOP SCH (09:00)
[2016-12-12] MEDS: VASOPRESSIN 60 UNIT in SOD CHLORIDE 0.9% 57 ML IV SCH ×2 (09:00→20:17)
[2016-12-12] MEDS: COLISTIMETHATE 75 MG in SOD CHLORIDE 0.9% 100 ML IVPB SCH (09:06)
[2016-12-12] MEDS: LINEZOLID 600 MG/D5W (PMX) 300 ML IVPB SCH ×2 (09:06→21:07)
[2016-12-12] MEDS: AMIODARONE 200 MG TAB GTB SCH (09:06)
[2016-12-12] MEDS: SODIUM HYPOCHLORITE 0.125% 473 ML BTL IRR SCH ×2 (09:07→21:07)
[2016-12-12] MEDS: SOD CHLORIDE 0.9% 1,000 ML IV SCH (09:07)
[2016-12-12] MEDS ORDERED: AMIODARONE IV SCH (09:30)
[2016-12-12] MEDS ORDERED: SOD CHLORIDE 0.9% IV SCH (09:30)
[2016-12-12] MEDS ORDERED: CALCIUM GLUCONATE 10% 1 GM in SOD CHLORIDE 0.9% 100 ML IVPB SCH (09:30)
--- NOTE | 2016-12-12 09:43 | CONS ---
Date/Time of Note Date/Time of Note DATE: 12/12/16 TIME: 09:40 Assessment/Plan Assessment/Plan Additional Assessment/Plan Ventilator settings; AC of 24, tidal volume 500, PEEP of 0, 50% FiO2. Patient currently on phenylephrine drip at 120 mics per minute, fentanyl 10 mics per hour, Levophed 30 mics per minute. Assessment recommendations; next 1. Patient admitted with severe sepsis and profound hypotension, refractory to high-dose pressor support. 2. Progressively worsening renal function. 3. History of advanced dementia. 4. Advanced Parkinson's disease. 5. Atrial fibrillation. 6. Anemia. 7. Sacral decubitus ulcers. 8. Right hydronephrosis. 9. Metastatic glossal cancer. Ventilator settings have been adjusted, assist control rate has been dropped down to 14 from 24. Continue current supportive care. Prognosis is dismal. Consultation Date/Type/Reason Admit Date/Time Dec 07, 2016 at 01:03 Initial Consult Date 12/07/16 Type of Consultation: Pulmonary/critical care 24 HR Interval Summary Free Text/Dictation Patient's condition remains critical. Still requiring high-dose pressor support for blood pressure maintenance. Patient remains unresponsive which is his underlying mental status for the last several months. General exam; elderly male, orally intubated, currently in no distress. Exam/Review of Systems Vital Signs Vitals Vital Signs Date Time Temp Pulse Resp B/P Pulse Ox O2 Delivery O2 Flow Rate FiO2 12/12/16 08:00 92 12/12/16 07:50 24 100 50 12/12/16 07:15 106/60 12/12/16 07:00 Mechanical Ventilator 12/12/16 04:00 101.0 Intake and Output 12/11/16 12/11/16 12/12/16 15:00 23:00 07:00 Intake Total 1510.99 ml 1824.20 ml 1363.26 ml Output Total 245 ml 305 ml 350 ml Balance 1265.99 ml 1519.20 ml 1013.26 ml Exam HEENT exam is; supple neck, positive JVD. No lymphadenopathy. Midline trachea. No thyromegaly. Orally intubated. Patient multiple carious teeth. There is a well-healed tracheostomy scar. There are bilateral corneal opacities. Chest examination; diminished but clear vessel. S1-S2 audible, irregular rhythm. No murmurs. Abdomen examination; soft, G-tube in place. No organomegaly. Bowel sounds audible. Extremity exam; no peripheral edema. Back examination; dressing applied over sacrum. ANIMAL [employer]UNTER examination; patient is essentially unresponsive. Results Result Diagram: 12/12/16 0400 12/12/16 0400 Results 24 hrs Laboratory Tests Test 12/12/16 04:00 12/12/16 08:05 White Blood Count 27.7 H Red Blood Count 3.21 L Hemoglobin 9.2 L Hematocrit 28.2 L Mean Corpuscular Volume 87.9 Mean Corpuscular Hemoglobin 28.7 L Mean Corpuscular Hemoglobin Concent 32.6 Red Cell Distribution Width 16.1 H Platelet Count 137 L Mean Platelet Volume 13.0 H Neutrophils % 89.1 H Lymphocytes % 3.1 L Monocytes % 4.0 Eosinophils % 0.0 Basophils % 0.3 Nucleated Red Blood Cells % 0.1 H Neutrophils # 24.7 H Lymphocytes # 0.9 Monocytes # 1.1 H Eosinophils # 0.0 Basophils # 0.1 Nucleated Red Blood Cells # 0.0 Sodium Level 126 L Potassium Level 3.2 L Chloride Level 73 #L Carbon Dioxide Level 35 H Anion Gap 21 H Blood Urea Nitrogen 117 H Creatinine 2.15 H Glucose Level 88 Calcium Level 5.1 *L Phosphorus Level 6.6 H Magnesium Level 1.7 Blood Gas Specimen Source Blood arterial Arterial Blood Date Drawn 12/12/2016 8:20:47 AM Arterial Blood pH (Temp corrected) 7.648 *H Arterial Blood pCO2 (Temp correct) 30.5 L Arterial Blood pO2 (Temp corrected) 110.1 H Arterial Blood HCO3 32.7 H Arterial Blood Base Excess 11.5 H Arterial Blood Oxygen Saturation 97.9 Eric Test ACCEPTAB Arterial Blood Gas Puncture Site Right Radial Arterial Blood Carboxyhemoglobin 0.2 Arterial Blood Methemoglobin 0.6 Blood Gas A-a O2 Differential 212.1 H Oxyhemoglobin Percent 97.1 Total Hemoglobin 10.2 L Blood Gas Temperature 37.0 Blood Gas Respiration Rate 24.0 Blood Gas Actual Respiration Rate 24 Blood Gas Modality VENT - AC FiO2 50.0 Blood Gas Tidal Volume 500.0 Blood Gas Low PEEP Setting 5.0 Blood Gas Critical Value Read Back K RICHELLE RN Blood Gas Notified Whom LEXISD Blood Gas Notified Time 12/12/2016 8:36:12 AM Medications Medications Current Medications Ondansetron HCl (Zofran Inj) 4 mg Q6H PRN IV NAUSEA AND/OR VOMITING; Start at 02:00 Pantoprazole (Protonix Iv) 40 mg DAILY@06 IV Last administered on 12/12/16 06: 12; Admin Dose 40 MG; Start 12/07/16 at 06:00 Amiodarone HCl (Cordarone) 400 mg DAILY GTB Last administered on 12/12/16 09:06 ; Admin Dose 400 MG; Start 12/07/16 at 09:00 Collagenase (Santyl) 1 applic DAILY TOP Last administered on 12/11/16 09:24; Admin Dose 1 APPLIC; Start 12/07/16 at 09:30 Collagenase 1 applic 1 applic PRN PRN TOP WOUND USE; Start 12/07/16 at 08:30 Fentanyl 100 ml @ 2.5 mls/hr TITRATE IV Last administered on 12/11/16 22:54; Admin Dose 2.5 MLS/HR; Start 12/07/16 at 14:00 Midazolam HCl (Versed) 50 ml @ 1 mls/hr TITRATE IV Last administered on 06:42; Admin Dose 1 MLS/HR; Start 12/07/16 at 14:00 Sodium Hypochlorite 1 applic 1 applic BID IRR Last administered on 12/12/16 09: 07; Admin Dose 1 APPLIC; Start 12/09/16 at 21:00 Erythromycin Lactobionate 250 mg/Sodium Chloride 100 ml @ 100 mls/hr Q6 IVPB Last administered on 12/12/16 06:12; Admin Dose 100 MLS/HR; Start 12/11/16 at 18 :00 Linezolid 300 ml @ 300 mls/hr Q12 IVPB Last administered on 12/12/16 09:06; Admin Dose 300 MLS/HR; Start 12/11/16 at 21:00 Colistimethate Sodium/Sodium Chloride (Coly-Mycin/NS) 100 ml @ 200 mls/hr Q12 IVPB Last administered on 12/12/16 09:06; Admin Dose 200 MLS/HR; Start at 13:00 Metronidazole 250 mg 250 mg Q6 NGT Last administered on 12/12/16 06:12; Admin Dose 250 MG; Start 12/11/16 at 18:00 Potassium Chloride 250 ml @ 62.5 mls/hr ONCE ONCE IVPB Last administered on 09:07; Admin Dose 62.5 MLS/HR; Start 12/12/16 at 08:30; Stop 12/12/16 at 12:29 Calcium Gluconate 1 gm/Sodium Chloride 110 ml @ 110 mls/hr ONCE IVPB ; Start at 09:30; Stop 12/12/16 at 10:29 Sodium Chloride 1,000 ml @ 50 mls/hr Q20H IV Last administered on 12/12/16 09: 07; Admin Dose 50 MLS/HR; Start 12/12/16 at 08:30 Amiodarone HCl 900 mg/Sodium Chloride 500 ml @ 16.66 mls/ hr Q24H IV ; Start at 09:30 Norepinephrine 32 mg/Sodium Chloride 250 ml @ 0.46 mls/hr TITRATE IV ; Start at 08:27 Phenylephrine HCl 160 mg/Sodium Chloride 500 ml @ 18.75 mls/ hr TITRATE IV ; Start 12/12/16 at 08:29 Vasopressin/ Sodium Chloride (Vasostrict/NS) 60 ml @ 1.2 mls/hr Q12H IV ; Start 12/12/16 at 09:00 WERNER CHURCH December 12, 2016 09:43
--- NOTE | 2016-12-12 10:07 | PN ---
DATE: 12/12/2016 SUBJECTIVE: The patient remains critically ill on pressor support. The patient had no significant improvement. Now on amiodarone drip for arrhythmia. Urinary output has been minimal, approximately 30 mL an hour. No other events noted. OBJECTIVE: VITAL SIGNS: Blood pressure 103/62, respirations 24, pulse 93, temperature 98.6. I'S AND O'S: The patient had 4.5 liters in, 910 out. GENERAL: The patient is cachectic, critically ill. HEENT: Head is normocephalic. Pupils are reactive. NECK: Supple. HEART: Tachycardic. LUNGS: Show diminished breath sounds at the base with crackles. ABDOMEN: Soft, positive PEG. EXTREMITIES: Negative for clubbing, cyanosis, edema. The patient is noted to move his lower extrem ity. Noted purplish discoloration of the toes. Peripheral pulses are diminished. DERMATOLOGIC: No rashes. MUSCULOSKELETAL: No joint effusions. Positive decubitus wound. NEUROLOGIC: The patient is obtunded. No significant change. LABORATORY DATA: The patient has a sodium of 126, potassium 3.2, chloride 73, BUN is 117, creatinin e 2.15, calcium level 5.1, phosphorus 6.6. White count is 27.7, hemoglobin 9.2, hematocrit 20.2, pl atelet count is 137. ABG from 12/09/2016 shows pH 7.53 with a pCO2 of 34. Cultures have been revie wed. ASSESSMENT AND PLAN: 1. Septic shock, etiology is multifactorial secondary to decubitus wound, aspiration pneumonia, ___ __. The patient remains critically ill, currently on broad spectrum antibiotics, IV fluids and pres sor support. At this point, we will continue current treatment plan. Follow up with Infectious Dis ease and poultry helper further recommendations. We will attempt to wean off pressors if possible. 2. Ventilator dependent respiratory failure. Vent settings have been reviewed. ABG has been revie wed. Continue to monitor and will continue to monitor. The patient is not a weaning candidate at t his time. 3. Nonoliguric acute kidney injury on top of chronic kidney disease. Etiology of acute kidney inju ry secondary to acute tubular necrosis due to septic acute kidney injury, shock, ischemic hypoperfus ion. The patient remains in injury phase of acute tubular necrosis. At this point, the patient is hemodynamically unstable for dialysis. We will continue current treatment plan, supportive care, re lance dose all meds, avoid nephrotoxins. 4. Mixed acid base disorder. The patient has a metabolic alkalemia, respiratory alkalemia. Etiolo gy is secondary to sepsis and bicarbonate drip. Plan at this point is to discontinue bicarbonate dr ip. We will repeat an ABG level and we will monitor closely. 5. Hyponatremia, etiology secondary to acute kidney injury causing decreased free water urinary exc retion in conjunction with hypertonic fluids. Plan is to change all piggybacks from D5 water to nor mal saline. We will discontinue free water flushes and monitor closely. 6. Hypokalemia. We will replete with potassium chloride. 7. Mineral bone disorder. The patient is hypocalcemic etiology in part is due to alkalemia. Plan at this point is to discontinue bicarbonate drip. I will give the patient one dose of calcium gluco salo. We will also expect hypocalcemic to improve once alkalemia resolves. We will monitor closely . 8. Acute encephalopathy and chronic dementia. Etiology is toxic metabolic. Continue to monitor. 9. Anemia. The patient is status post blood transfusion. Continue to monitor H and H levels. No evidence of gastrointestinal bleed. 10. Transaminitis abnormal liver function tests. Etiology may be multifactorial due to ischemia, s eptic shock as well as possible metastatic disease. The patient's renal ultrasound shows multiple l esions. We will continue to monitor. Follow up with GI and monitor LFTs. 11. Atrial fibrillation, continue amiodarone drip. 12. Bilateral hydronephrosis. Etiology secondary to pelvic mass likely from underlying malignancy. Continue to monitor. Follow up with Dr. Kimbrough. 13. Leukocytosis secondary to sepsis. Continue current treatment plan. 14. Dysphagia, status post percutaneous endoscopic gastrostomy. Continue tube feedings. 15. Multiple decubitus wound. Continue current wound care. 16. Rule out limb ischemia. The patient has noted discoloration of his toes with poor pulses. We will place a vascular surgery consultation for evaluation. 17. GI and DVT prophylaxis. Continue proton pump inhibitor and sequential leg squeezers. Please note I spent over 40 minutes of critical care time with this patient. Dictated By: JAX ANDRADE/CHELSI Conf#: [id number] [facility]#: [id number]
[2016-12-12] MEDS ORDERED: CASPOFUNGIN 70 MG in SOD CHLORIDE 0.9% 250 ML IVPB ONE (11:00)
--- NOTE | 2016-12-12 11:11 | CONS ---
DATE OF ADMISSION: 12/07/2016 DATE OF CONSULTATION: 12/12/2016 TYPE OF CONSULTATION: Vascular surgery consultation. Dear Doctors: Mr. Vera is a 76-year-old gentleman with a plethora of medical conditions who is in the intensive c are unit intubated and sedated and nonresponsive. The patient was transferred from [place] secondary to shock tachycardia and atrial fibrillation and respiratory failure. At the moment, the patient i s on pressors and has presented with bilateral lower extremity foot discolorations. Vascular surger y was obtained for further evaluation. REVIEW OF SYSTEMS: A 12-point review unable to ascertain as the patient is intubated and sedated. PAST MEDICAL HISTORY: Entails Parkinson disease, dysphagia status post PEG placement, tongue cancer status post resection, history of multiple falls with subdural hematoma on the right side, history of meningioma, prostate cancer status post TURP, history of paroxysmal atrial fibrillation, chronic respiratory failure, severe encephalopathy, COPD, right hydronephrosis, prior history of tracheostom y, failure to thrive, acute kidney injury/acute tubular necrosis and history of gastrointestinal ble ed, neurogenic bladder, diastolic heart failure. FAMILY HISTORY: Noncontributory. SOCIAL HISTORY: No history of alcohol, tobacco or illicit drug use was identified in his medical ch art. ALLERGIES 1. PENICILLIN. 2. CODEINE. 3. HYDROCODONE. 4. MORPHINE. PHYSICAL EXAMINATION: GENERAL: Patient is intubated and sedated, nonresponsive. HEENT: Temporal wasting. Mucosa moist, necrotic tongue. NECK: Supple. No carotid bruit. ET tube intact. CARDIOVASCULAR: S1, S2 present. Irregularly irregular. PULMONARY: Coarse breath sounds bilaterally with some crackles at the bases. ABDOMEN: Soft, nontender, nondistended. PEG tube intact and functional. EXTREMITIES: Bilateral palpable femoral pulses, nonpalpable pedal pulses, bluish discoloration of a ll the toes up to the forefoot and heel discoloration and break of the skin. Capillary refill about 3 to 4 seconds. ASSESSMENT AND PLAN: Bilateral lower extremity atherosclerosis with gangrene: It seems the patient has developed discolo ration of bilateral toes and forefoot. Unfortunately, the patient is in critical condition in which she is requiring pressor support to maintain blood pressure and hypotension. From a vascular surge ry standpoint, we will plan to obtain noninvasive vascular studies; however, the patient will have l imited vascular intervention secondary to being intubated, sedated, and Parkinson's disease and base line dementia. Unfortunately, if the patient does develop worsening of his wounds and worsening bushra grene the patient would require primary amputation for life saving procedure. Otherwise, we will pl an to follow from a vascular standpoint. Optimize vascular status (BP meds, diet, nutrition, exercise, sugar control, antiplatelets). Discussed findings, plan and management with the primary service. Thank you for allowing us to partake in the care of your patient. Please call with any questions. Dictated By: ROXANNE CHERY/CHELSI Conf#: [id number] DID#: [id number]
[2016-12-12] MEDS: NORepinephrine 32 MG in SOD CHLORIDE 0.9% 218 ML IV SCH (11:26)
[2016-12-12] MEDS: PHENYLephrine 160 MG in SOD CHLORIDE 0.9% 484 ML IV SCH (11:26)
--- NOTE | 2016-12-12 13:04 | PN ---
Date/Time of Note Date/Time of Note DATE: 12/09/16 TIME: 12:56 Assessment/Plan Lines/Catheters IV Catheter Type (from [facility]): Central Line Assessment/Plan Chief Complaint/Hosp Course 1. Decubitus ulceration with necrotic tissue -debridement when medically stable -off loading -optimization of nutrition -vit c -local care 2. Sepsis with shock, multifactorial (le ischemia, wounds, lung, ? other) with worsening lactic acidosis -abx -supportive -wound care -pulmonary toilette -aspiration precautions 3. Dysphagia on tube feeds 4. Anemia -monitor 5. Pelvic mass, hx of tongue and prostate cancer, currently with hydronephrosis -heme/onc -urology 6. Renal insufficiency -judicious fluid management 7. Diastolic heart failure -cardiac optimization -judicious fluid management 8. Hypoxemic respiratory failure with advanced COPD and aspiration PNAs -pulmonary toilette -aspiration precautions 9. Parkinson disease/neurodegenerative disorder with dementia -medical optimization Thank you, Late entry 12/09 Problems: Subjective 24 Hr Interval Summary Leukocytosis. No fevers or chills. No cough. No sz. No rash. Wounds. No vomiting. Bowel function. No bleeding. No bloating. Exam/Review of Systems Vital Signs Vitals Vital Signs Date Time Temp Pulse Resp B/P Pulse Ox O2 Delivery O2 Flow Rate FiO2 12/12/16 11:50 80 14 100 50 12/12/16 10:30 87/56 Mechanical Ventilator 12/12/16 08:00 101.0 Intake and Output 12/11/16 12/11/16 12/12/16 15:00 23:00 07:00 Intake Total 1510.99 ml 1824.20 ml 1363.26 ml Output Total 245 ml 305 ml 380 ml Balance 1265.99 ml 1519.20 ml 983.26 ml Exam Free Text/Dictation Constitutional: No oriented Psych: No nl mood/affect Head: normocephalic Eyes: EOMI, PERRL, nl conjunctiva, No icteric ENMT: nl external ears & nose, No mucosa pink and moist Neck: jvd, No non-tender, No supple Respiratory: No congested cough, No normal air movement Cardiovascular: No edema, No regular rate and rhythm, decreased pulses LEs Gastrointestinal: non-tender, soft, No rebound or guarding Musculoskeletal: No nl extremities to inspection, No nl gait and stance Extremities: No calf tenderness, No cyanosis, LE color changes Neurological: No nl mental status, No nl speech, No nl strength Skin: rash or lesions (decubitus ulcers with necrotic debris), No diaphoresis Lymph: nontender Results Result Diagram: 12/12/1639912/12/16399 CHELSY CAIN MD December 12, 2016 13:04
--- NOTE | 2016-12-12 13:05 | PN ---
Date/Time of Note Date/Time of Note DATE: 12/10/16 TIME: 13:04 Assessment/Plan Lines/Catheters IV Catheter Type (from [facility]): Central Line Assessment/Plan Chief Complaint/Hosp Course 1. Decubitus ulceration with necrotic tissue -debridement when medically stable -off loading -optimization of nutrition -vit c -local care 2. Sepsis with shock, multifactorial (le ischemia, wounds, lung, ? other) with worsening lactic acidosis -abx -supportive -wound care -pulmonary toilette -aspiration precautions 3. Dysphagia on tube feeds 4. Anemia -monitor 5. Pelvic mass, hx of tongue and prostate cancer, currently with hydronephrosis -heme/onc -urology 6. Renal insufficiency -judicious fluid management 7. Diastolic heart failure -cardiac optimization -judicious fluid management 8. Hypoxemic respiratory failure with advanced COPD and aspiration PNAs -pulmonary toilette -aspiration precautions 9. Parkinson disease/neurodegenerative disorder with dementia -medical optimization Thank you, Late entry 12/10 Problems: Subjective 24 Hr Interval Summary Leukocytosis. No fevers or chills. No cough. No sz. No rash. Wounds. No vomiting. Bowel function. No bleeding. No bloating. Exam/Review of Systems Vital Signs Vitals Vital Signs Date Time Temp Pulse Resp B/P Pulse Ox O2 Delivery O2 Flow Rate FiO2 12/12/16 11:50 80 14 100 50 12/12/16 10:30 87/56 Mechanical Ventilator 12/12/16 08:00 101.0 Intake and Output 12/11/16 12/11/16 12/12/16 15:00 23:00 07:00 Intake Total 1510.99 ml 1824.20 ml 1363.26 ml Output Total 245 ml 305 ml 380 ml Balance 1265.99 ml 1519.20 ml 983.26 ml Exam Free Text/Dictation Constitutional: No oriented Psych: No nl mood/affect Head: normocephalic Eyes: EOMI, PERRL, nl conjunctiva, No icteric ENMT: nl external ears & nose, No mucosa pink and moist Neck: jvd, No non-tender, No supple Respiratory: No congested cough, No normal air movement Cardiovascular: No edema, No regular rate and rhythm, decreased pulses LEs Gastrointestinal: non-tender, soft, No rebound or guarding Musculoskeletal: No nl extremities to inspection, No nl gait and stance Extremities: No calf tenderness, No cyanosis, LE color changes Neurological: No nl mental status, No nl speech, No nl strength Skin: rash or lesions (decubitus ulcers with necrotic debris), No diaphoresis Lymph: nontender Results Result Diagram: 12/12/1639912/12/16399 CHELSY CAIN MD December 12, 2016 13:05
--- NOTE | 2016-12-12 13:06 | PN ---
Date/Time of Note Date/Time of Note DATE: 12/11/16 TIME: 13:05 Assessment/Plan Lines/Catheters IV Catheter Type (from [facility]): Central Line Assessment/Plan Chief Complaint/Hosp Course 1. Decubitus ulceration with necrotic tissue -debridement when medically stable -off loading -optimization of nutrition -vit c -local care 2. Sepsis with shock, multifactorial (le ischemia, wounds, lung, ? other) with worsening lactic acidosis -abx -supportive -wound care -pulmonary toilette -aspiration precautions 3. Dysphagia on tube feeds 4. Anemia -monitor 5. Pelvic mass, hx of tongue and prostate cancer, currently with hydronephrosis -heme/onc -urology 6. Renal insufficiency -judicious fluid management 7. Diastolic heart failure -cardiac optimization -judicious fluid management 8. Hypoxemic respiratory failure with advanced COPD and aspiration PNAs -pulmonary toilette -aspiration precautions 9. Parkinson disease/neurodegenerative disorder with dementia -medical optimization Thank you, Late entry 12/11 Problems: Subjective 24 Hr Interval Summary Leukocytosis. No fevers or chills. No cough. No sz. No rash. Wounds. No vomiting. Bowel function. No bleeding. No bloating. Exam/Review of Systems Vital Signs Vitals Vital Signs Date Time Temp Pulse Resp B/P Pulse Ox O2 Delivery O2 Flow Rate FiO2 12/12/16 11:50 80 14 100 50 12/12/16 10:30 87/56 Mechanical Ventilator 12/12/16 08:00 101.0 Intake and Output 12/11/16 12/11/16 12/12/16 15:00 23:00 07:00 Intake Total 1510.99 ml 1824.20 ml 1363.26 ml Output Total 245 ml 305 ml 380 ml Balance 1265.99 ml 1519.20 ml 983.26 ml Exam Free Text/Dictation Constitutional: No oriented Psych: No nl mood/affect Head: normocephalic Eyes: EOMI, PERRL, nl conjunctiva, No icteric ENMT: nl external ears & nose, No mucosa pink and moist Neck: jvd, No non-tender, No supple Respiratory: No congested cough, No normal air movement Cardiovascular: No edema, No regular rate and rhythm, decreased pulses LEs Gastrointestinal: non-tender, soft, No rebound or guarding Musculoskeletal: No nl extremities to inspection, No nl gait and stance Extremities: No calf tenderness, No cyanosis, LE color changes Neurological: No nl mental status, No nl speech, No nl strength Skin: rash or lesions (decubitus ulcers with necrotic debris), No diaphoresis Lymph: nontender Results Result Diagram: 12/12/1639912/12/16399 CHELSY CAIN MD December 12, 2016 13:06
--- NOTE | 2016-12-12 13:09 | PN ---
Date/Time of Note Date/Time of Note DATE: 12/12/16 TIME: 13:07 Assessment/Plan Lines/Catheters IV Catheter Type (from [facility]): Central Line Assessment/Plan Chief Complaint/Hosp Course 1. Decubitus ulceration with necrotic tissue -debridement when medically stable -off loading -optimization of nutrition -vit c -local care 2. Sepsis with shock, multifactorial (le ischemia, wounds, lung, ? other) with worsening lactic acidosis -abx -supportive -wound care -pulmonary toilette -aspiration precautions 3. Dysphagia on tube feeds 4. Anemia -monitor 5. Pelvic mass, hx of tongue and prostate cancer, currently with hydronephrosis -heme/onc -urology 6. Renal insufficiency -judicious fluid management 7. Diastolic heart failure -cardiac optimization -judicious fluid management 8. Hypoxemic respiratory failure with advanced COPD and aspiration PNAs -pulmonary toilette -aspiration precautions 9. Parkinson disease/neurodegenerative disorder with dementia -medical optimization Thank you, Problems: Subjective 24 Hr Interval Summary Amiodarone for arrhythmia. Leukocytosis. No fevers or chills. No cough. No sz. No rash. Wounds. No vomiting. Bowel function. No bleeding. No bloating. Exam/Review of Systems Vital Signs Vitals Vital Signs Date Time Temp Pulse Resp B/P Pulse Ox O2 Delivery O2 Flow Rate FiO2 12/12/16 11:50 80 14 100 50 12/12/16 10:30 87/56 Mechanical Ventilator 12/12/16 08:00 101.0 Intake and Output 12/11/16 12/11/16 12/12/16 15:00 23:00 07:00 Intake Total 1510.99 ml 1824.20 ml 1363.26 ml Output Total 245 ml 305 ml 380 ml Balance 1265.99 ml 1519.20 ml 983.26 ml Exam Free Text/Dictation Constitutional: No oriented Psych: No nl mood/affect Head: normocephalic Eyes: EOMI, PERRL, nl conjunctiva, No icteric ENMT: nl external ears & nose, No mucosa pink and moist Neck: jvd, No non-tender, No supple Respiratory: No congested cough, No normal air movement Cardiovascular: No edema, No regular rate and rhythm, decreased pulses LEs Gastrointestinal: non-tender, soft, No rebound or guarding Musculoskeletal: No nl extremities to inspection, No nl gait and stance Extremities: No calf tenderness, No cyanosis, LE color changes Neurological: No nl mental status, No nl speech, No nl strength Skin: rash or lesions (decubitus ulcers with necrotic debris), No diaphoresis Lymph: nontender Results Result Diagram: 12/12/1639912/12/16399 CHELSY CAIN MD December 12, 2016 13:09
--- NOTE | 2016-12-12 13:41 | PN ---
DATE: 12/12/2016 SUBJECTIVE: No events overnight. The patient is spiking fevers with a T-max at midnight of 101.4. He is maxed on pressors. He is intubated, in no distress. LABORATORIES: WBC today 27.7, H and H 9.2 and 28.2, platelets 137, neutrophils 89.1, BUN 117 creati nine 2.15. Lactic acid 8.1. MICROBIOLOGY: Blood cultures since admission negative. Stool for C. diff negative. Urine culture negative. INDWELLINGS: Endotracheal tube, PEG, and suprapubic catheter, right femoral triple lumen catheter, Cruz and rectal tube. ANTIMICROBIALS: 1. Zyvox. 2. Colistin. 3. Flagyl. 4. Erythromycin. PHYSICAL EXAMINATION: GENERAL: Chronically ill-appearing, elderly man who is in no distress. HEENT: Head atraumatic, normocephalic. Sclerae anicteric. Buccal mucosa dry. NECK: Supple, trachea midline. CHEST: Rise symmetrical. Breath sounds with bilateral scattered rhonchi. HEART: S1, S2. ABDOMEN: Distended, bowel tones hypoactive. EXTREMITIES: Bilateral trace edema. ASSESSMENT: 1. Severe sepsis with shock with multisystem organ failure. 2. Acute respiratory failure. 3. Healthcare-associated pneumonia with possible aspiration event. 4. Multiple chronic wounds status post debridement. 5. Urinary tract infection, chronic, secondary to bilateral hydroureteronephrosis secondary to larg e pelvic mass. 6. 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 7. Parkinson's dementia. 8. Rectal bleeding, possibly from tumor invading the rectum. 9. Gastroparesis. 10. Acute kidney injury with electrolyte imbalance. PLAN: The patient is doing poorly. He is covered with broad spectrum antibiotics. He had a histor y of multi-drug resistant organisms growing in his wounds. We are going to add antifungal coverage. Continue him on current antimicrobials. Continue local wound care and again prognosis is poor. Dictated By: LUIS ARMANDO MIRANDA SURFACING TECHNICIAN for MICHAEL RIVAS/CHELSI Conf#: [id number] DID#: [id number]
--- NOTE | 2016-12-12 15:20 | RADRPT ---
PROCEDURE: US bilateral lower extremity arteries. CLINICAL INDICATION: Bilateral leg pain. Claudication that interferes significantly with the jose ent's lifestyle. TECHNIQUE: Multiple longitudinal and transverse images of the bilateral lower extremity arteries w ere obtained with toussaint scale, pulsed Doppler, and color Doppler imaging. COMPARISON: No prior studies are available for comparison. FINDINGS: Right ANIMAL TREATMENT INVESTIGATOR:91 cm/sec PSFA:99 cm/sec MSFA:85 cm/sec DSFA:101 cm/sec POP:73 cm/sec MANAGING MEMBER:34 cm/sec DPA:18 cm/sec Left ANIMAL TREATMENT INVESTIGATOR:177 cm/sec PSFA:84 cm/sec MSFA:79 cm/sec DSFA:63 cm/sec POP:64 cm/sec MANAGING MEMBER:25 cm/sec DPA:10 cm/sec The right ankle-brachial index is 0.82 and the left ankle-brachial index is 0.82. There is abnormal biphasic flow in the femoral and popliteal systems bilaterally and abnormal monoph asic flow in the calf arteries bilaterally. IMPRESSION: 1. Abnormal flow bilaterally and diminished ankle-brachial indices consistent with probable aorto i liac disease. RPTAT: QQ .Quan Olvera MD, MD Date Time Electronically viewed and signed by .Quan Olvera MD, on 12/12/2016 15:20 .R/
--- NOTE | 2016-12-12 15:37 | RADRPT ---
PROCEDURE: XR Chest. CLINICAL INDICATION: Check PICC line position. TECHNIQUE: Single frontal view. COMPARISON: 12/08/2016. FINDINGS: There is a left arm PICC line with the tip in the lower superior vena cava. The endotracheal tube r emains in satisfactory position. There is right basilar atelectasis or pneumonia, unchanged. There is mild left basilar atelectasis. The heart is mildly enlarged. There is calcification in the aorta consistent with atherosclerosis. There is no pleural effusion. There is no pneumothorax. IMPRESSION: 1. Satisfactory position of left arm PICC line. 2. Atelectasis at the lung bases, right worse than left. RPTAT: QQ .Quan Olvera MD, MD Date Time Electronically viewed and signed by .Quan Olvera MD, on 12/12/2016 15:36 .R/
[2016-12-12 16:27] LABS: ADD UMIC YES; URINE BILIRUBIN (Dip) 1+ (NEGATIVE); URINE BLOOD (Dip) 3+ (NEGATIVE); URINE COLOR LT. YELLOW (YELLOW); URINE GLUCOSE (Dip) NEGATIVE (NEGATIVE); URINE KETONES (Dip) NEGATIVE (NEGATIVE); URINE LEUKOCYTE ESTERASE (Dip) 3+ (NEGATIVE); URINE NITRITE (Dip) NEGATIVE (NEGATIVE); URINE TOTAL PROTEIN (Dip) 2+ (NEGATIVE); URINE UROBILINOGEN (Dip) 0.2 E.U./dL (0.1-1.0)
[2016-12-12] MEDS ORDERED: MAGNESIUM SULFATE 1 GM/D5W 100 ML IVPB ONE (17:00)
[2016-12-12 17:04] LABS: BACTERIA,URINE MANY; ICTOTEST NEGATIVE (NEGATIVE); SQUAMOUS EPITHELIAL CELL,UR MODERATE
[2016-12-12] MEDS ORDERED: SOD CHLORIDE 0.9% 100 ML ONE (17:22)
--- NOTE | 2016-12-12 17:23 | RADRPT ---
PROCEDURE: Ultrasound guidance for placement of needle in left upper extremity vein. CLINICAL INDICATION: Venous access. TECHNIQUE: Limited sonography of the left upper extremity was performed. Ultrasound images were recorded and s tored in the patient's medical record. COMPARISON: None. FINDINGS: The ultrasound images demonstrate a patent left upper extremity vein. The PICC line was inserted by the PICC line nurse. IMPRESSION: 1. Ultrasound guidance for a needle placement in a left upper extremity vein. 2. The left upper extremity vein is patent. RPTAT: QQ .Quan Olvera MD, MD Date Time Electronically viewed and signed by .Quan Olvera MD, MD on 12/12/2016 17:23 .R/
[2016-12-12 17:41] LABS: AADO2 Arterial 173.5 mmHg (7.0-24.0); Allen Test ACCEPTAB; Arterial Base Excess 8.3 mmol/L (-3.0-3); Arterial COHb 0.3 % (0.0-3.0); Arterial Fraction of Oxyhgb 97.3 % (93.0-99.0); Arterial MetHb 0.5 % (0.0-1.5); Arterial Total Hemglobin 10.2 g/dl (12.0-18.0); MODE VENT - AC
--- NOTE | 2016-12-12 18:23 | PN ---
DATE: 12/12/2016 SUBJECTIVE: Discussed with the staff. Rhythm strip was reviewed. The patient continues to be intu bated on the vent, nonresponsive, multiple pressors. He has ____ in sinus rhythm, had episodes of m arked bradycardia and junctional rhythm as well an episode of paroxysmal atrial fibrillation. Overa ll, his heart rate has improved on amiodarone drip. Blood pressure is still low. Unresponsive. MEDICATIONS: Reviewed. PHYSICAL EXAMINATION: VITAL SIGNS: Temperature 101, T-max is 101.5, heart rate of 85, blood pressure 87/56, respiratory r ate of 14, saturating 100% on 50% oxygen on the vent. HEENT: Normocephalic, atraumatic. Eyes are open. CARDIOVASCULAR: Regular rate and rhythm. Status post intubation on the vent. PULMONARY: Anteriorly mild rhonchi, diffuse. GASTROINTESTINAL: Soft, nontender. Status post PEG placement. EXTREMITIES: With diffuse lower extremity edema. Positive for cyanosis of toes. NEUROLOGIC: No response to verbal or painful stimuli. PSYCHIATRIC: Unable to assess. LABORATORY: WBC of 27.7, hemoglobin 9.2, platelets of 137. Sodium 126, potassium 3.2, BUN of 117, creatinine of 2.15. Lactic acid 8.1. Magnesium is 1.7. His albumin from yesterday is 1.7. ASSESSMENT AND PLAN: 1. Septic shock. 2. Severe sepsis. 3. Atrial fibrillation with rapid ventricular response appeared to be paroxysmal, improved on amiod arone. 4. Multiple risk factors including ventricular tachycardia, sustained and nonsustained. 5. Renal failure. 6. Acute respiratory failure on the vent, intubated. 7. Severe encephalopathy. 8. History of tongue cancer. 9. History of multiple decubitus ulcers. 10. History of prostate carcinoma. 11. Necrosis of the toes. RECOMMENDATIONS: Prognosis appeared to be poor. We will continue with the vent support. Continue with the multiple pressors. Amiodarone will be continued. Code status still FULL CODE per family's request. Prognosis appeared to be very poor. More than 40 minutes of critical care was spent in management of this patient excluding procedures. Dictated By: KATIE BURR/CHELSI Conf#: [id number] DID#: [id number] CC: JAX SLATER DO;*EndCC*
--- NOTE | 2016-12-12 18:40 | CONS ---
Date/Time of Note Date/Time of Note DATE: 12/12/16 TIME: 18:40 Assessment/Plan Assessment/Plan Additional Assessment/Plan Additional Assessment/Plan IMPRESSION: 1. Septic shock. Patient on 3 pressor support 2. Severe anemia. 3. Prerenal azotemia. 4. Prostate cancer. 5. Tongue cancer. 6. Parkinson's disease. 7. Dementia. 8. Respiratory failure. 9. Abnormal liver function tests. Patient has a multiple non-defined lesion in the liver 10. Atrial fibrillation. 11. Hydronephrosis. 12. Rectal bleeding probably from the tumor invading the rectum. 13. Gastroparesis Plan Continue antibiotic Continue all the supportive care Continue vent support and nutrition. Will monitor WBC count and hematocrit closely. Patient prognosis remains poor. Will start patient on erythromycin Consultation Date/Type/Reason Admit Date/Time Dec 07, 2016 at 01:03 Initial Consult Date 12/07/16 Type of Consultation: Pulmonary/critical care 24 HR Interval Summary Subjective hx not possible: pt critical Exam/Review of Systems Vital Signs Vitals Vital Signs Date Time Temp Pulse Resp B/P Pulse Ox O2 Delivery O2 Flow Rate FiO2 12/12/16 16:00 81 12/12/16 16:00 98.5 15 91/58 100 Mechanical Ventilator 12/12/16 16:00 50 Intake and Output 12/11/16 12/11/16 12/12/16 15:00 23:00 07:00 Intake Total 1510.99 ml 1824.20 ml 1363.26 ml Output Total 245 ml 305 ml 380 ml Balance 1265.99 ml 1519.20 ml 983.26 ml Exam Constitutional: alert, oriented, well developed Psych: nl mood/affect, no complaints Head: atraumatic, normocephalic Eyes: EOMI, PERRL, nl conjunctiva, nl lids, nl sclera ENMT: nl external ears & nose, nl lips & teeth, nl nasal mucosa & septum Neck: non-tender, supple Respiratory: clear to auscultation, normal air movement Cardiovascular: nl pulses, regular rate and rhythm Gastrointestinal: nl liver, spleen, non-tender, soft Musculoskeletal: nl extremities to inspection, nl gait and stance Extremities: normal pulses Neurological: NETWORK ENGINEER II-XII intact, nl mental status, nl speech, nl strength Skin: nl turgor, No rash or lesions Lymph: nl lymph nodes Results Result Diagram: 12/12/16 0400 12/12/16 0400 Results 24 hrs Laboratory Tests Test 12/12/16 04:00 12/12/16 08:05 12/12/16 09:24 12/12/16 15:51 White Blood Count 27.7 H Red Blood Count 3.21 L Hemoglobin 9.2 L Hematocrit 28.2 L Mean Corpuscular Volume 87.9 Mean Corpuscular Hemoglobin 28.7 L Mean Corpuscular Hemoglobin Concent 32.6 Red Cell Distribution Width 16.1 H Platelet Count 137 L Mean Platelet Volume 13.0 H Neutrophils % 89.1 H Lymphocytes % 3.1 L Monocytes % 4.0 Eosinophils % 0.0 Basophils % 0.3 Nucleated Red Blood Cells % 0.1 H Neutrophils # 24.7 H Lymphocytes # 0.9 Monocytes # 1.1 H Eosinophils # 0.0 Basophils # 0.1 Nucleated Red Blood Cells # 0.0 Sodium Level 126 L Potassium Level 3.2 L Chloride Level 73 #L Carbon Dioxide Level 35 H Anion Gap 21 H Blood Urea Nitrogen 117 H Creatinine 2.15 H Glucose Level 88 Calcium Level 5.1 *L Phosphorus Level 6.6 H Magnesium Level 1.7 Blood Gas Specimen Source Blood arterial Arterial Blood Date Drawn 12/12/2016 8:20:47 AM Arterial Blood pH (Temp corrected) 7.648 *H Arterial Blood pCO2 (Temp correct) 30.5 L Arterial Blood pO2 (Temp corrected) 110.1 H Arterial Blood HCO3 32.7 H Arterial Blood Base Excess 11.5 H Arterial Blood Oxygen Saturation 97.9 Eric Test ACCEPTAB Arterial Blood Gas Puncture Site Right Radial Arterial Blood Carboxyhemoglobin 0.2 Arterial Blood Methemoglobin 0.6 Blood Gas A-a O2 Differential 212.1 H Oxyhemoglobin Percent 97.1 Total Hemoglobin 10.2 L Blood Gas Temperature 37.0 Blood Gas Respiration Rate 24.0 Blood Gas Actual Respiration Rate 24 Blood Gas Modality VENT - AC FiO2 50.0 Blood Gas Tidal Volume 500.0 Blood Gas Low PEEP Setting 5.0 Blood Gas Critical Value Read Back K RICHELLE RN Blood Gas Notified Whom LEXISD Blood Gas Notified Time 12/12/2016 8:36:12 AM Lactic Acid Level 8.1 *H Ionized Calcium (Measured) 0.6 L Urine Color LT. YELLOW Urine Clarity CLEAR Urine pH 8.0 Urine Specific [place] 1.010 Urine Ketones NEGATIVE Urine Nitrite NEGATIVE Urine Bilirubin 1+ H Urine Ictotest NEGATIVE Urine Urobilinogen 0.2 E.U./dL Urine Leukocyte Esterase 3+ H Urine Microscopic RBC 2-5 Urine Microscopic WBC >50 Urine Squamous Epithelial Cells MODERATE Urine Calcium Oxalate Crystals FEW Urine Bacteria MANY Urine Other Urine Hemoglobin 3+ H Urine Random Creatinine < 12.40 L Urine Random Sodium 24 L Urine Glucose NEGATIVE Urine Total Protein 114.0 H Test 12/12/16 17:01 12/12/16 17:27 Blood Gas Specimen Source Blood arterial Arterial Blood Date Drawn 12/12/2016 5:33:01 PM Arterial Blood pH (Temp corrected) 7.464 H Arterial Blood pCO2 (Temp correct) 47.1 H Arterial Blood pO2 (Temp corrected) 130.0 H Arterial Blood HCO3 33.0 H Arterial Blood Base Excess 8.3 H Arterial Blood Oxygen Saturation 98.1 Eric Test ACCEPTAB Arterial Blood Gas Puncture Site Right Radial Arterial Blood Carboxyhemoglobin 0.3 Arterial Blood Methemoglobin 0.5 Blood Gas A-a O2 Differential 173.5 H Oxyhemoglobin Percent 97.3 Total Hemoglobin 10.2 L Blood Gas Temperature 37.0 Blood Gas Respiration Rate 14.0 Blood Gas Actual Respiration Rate 14 Blood Gas Modality VENT - AC FiO2 50.0 Blood Gas Tidal Volume 500.0 Blood Gas Notified Whom ab Blood Gas Notified Time 12/12/2016 5:41:17 PM Lactic Acid Level 6.8 *H Medications Medications Current Medications Ondansetron HCl (Zofran Inj) 4 mg Q6H PRN IV NAUSEA AND/OR VOMITING; Start at 02:00 Pantoprazole (Protonix Iv) 40 mg DAILY@06 IV Last administered on 12/12/16 06: 12; Admin Dose 40 MG; Start 12/07/16 at 06:00 Amiodarone HCl (Cordarone) 400 mg DAILY GTB Last administered on 12/12/16 09:06 ; Admin Dose 400 MG; Start 12/07/16 at 09:00 Collagenase (Santyl) 1 applic DAILY TOP Last administered on 12/12/16 09:00; Admin Dose 1 APPLIC; Start 12/07/16 at 09:30 Collagenase 1 applic 1 applic PRN PRN TOP WOUND USE; Start 12/07/16 at 08:30 Fentanyl 100 ml @ 2.5 mls/hr TITRATE IV Last administered on 12/11/16 22:54; Admin Dose 2.5 MLS/HR; Start 12/07/16 at 14:00 Midazolam HCl (Versed) 50 ml @ 1 mls/hr TITRATE IV Last administered on 06:42; Admin Dose 1 MLS/HR; Start 12/07/16 at 14:00 Sodium Hypochlorite 1 applic 1 applic BID IRR Last administered on 12/12/16 09: 07; Admin Dose 1 APPLIC; Start 12/09/16 at 21:00 Erythromycin Lactobionate 250 mg/Sodium Chloride 100 ml @ 100 mls/hr Q6 IVPB Last administered on 12/12/16 18:04; Admin Dose 100 MLS/HR; Start 12/11/16 at 18 :00 Linezolid (Zyvox 600mg/D5W (Pmx)) 300 ml @ 300 mls/hr Q12 IVPB Last administered on 12/12/16 09:06; Admin Dose 300 MLS/HR; Start 12/11/16 at 21:00 Metronidazole 250 mg 250 mg Q6 NGT Last administered on 12/12/16 18:05; Admin Dose 250 MG; Start 12/11/16 at 18:00 Sodium Chloride 1,000 ml @ 50 mls/hr Q20H IV Last administered on 12/12/16 09: 07; Admin Dose 50 MLS/HR; Start 12/12/16 at 08:30 Amiodarone HCl 900 mg/Sodium Chloride 500 ml @ 16.66 mls/ hr Q24H IV Last administered on 12/12/16 11:15; Admin Dose 16.66 MLS/HR; Start 12/12/16 at 09:30 Norepinephrine 32 mg/Sodium Chloride 250 ml @ 0.46 mls/hr TITRATE IV Last administered on 12/12/16 11:26; Admin Dose 14.06 MLS/HR; Start 12/12/16 at 08:27 Phenylephrine HCl 160 mg/Sodium Chloride 500 ml @ 18.75 mls/ hr TITRATE IV Last administered on 12/12/16 11:26; Admin Dose 22.5 MLS/HR; Start 12/12/16 at 08 :29 Vasopressin 60 unit/Sodium Chloride 60 ml @ 1.2 mls/hr Q12H IV ; Start 12/12/16 at 09:00 Caspofungin 50 mg/ Sodium Chloride 250 ml @ 250 mls/hr Q24H IVPB ; Start at 11:00 Colistimethate Sodium/Sodium Chloride (Coly-Mycin/NS) 100 ml @ 200 mls/hr Q36H IVPB ; Start 12/13/16 at 21:00 CHELE CASE MD December 12, 2016 18:40
[2016-12-12 21:42] LABS: POTASSIUM 3.7 mmol/L (3.5-5.1)
[2016-12-12 21:45] LABS: CREATININE 2.26 mg/dl (0.61-1.24)
[2016-12-12 21:48] LABS: CALCIUM 5.3 mg/dl (8.4-10.2)
[2016-12-12] MEDS ORDERED: CALCIUM GLUCONATE 10% 2 GM in SOD CHLORIDE 0.9% 100 ML IVPB ONE (23:00)
[2016-12-12] MEDS: FENTAnyl (DRIP) 1000 mcg/100mL 100 ML IV SCH (23:06)
[2016-12-13] VITALS (107 sets, daily range): BP systolic 56–117; BP diastolic 34–101; PULSE 69–102; RESP 14–32
[2016-12-13] MEDS: ALBUTEROL 18 GM INHALER INH SCH ×5 (01:06→21:35)
[2016-12-13] MEDS: SOD CHLORIDE 0.9% 1,000 ML IV SCH (04:30)
[2016-12-13 04:50] LABS: ADD SCAN DIFF NO
[2016-12-13 04:55] LABS: ABNORMAL IP MESSAGE 1; HEMATOCRIT 27.2 % (42.0-52.0); HEMOGLOBIN 8.7 g/dl (14.0-18.0); MEAN CORPUSCULAR HEMOGLOBIN 29.4 pg (29.0-33.0); MEAN CORPUSCULAR VOLUME 91.9 fl (82.0-101.0); MEAN PLATELET VOLUME 13.9 fl (7.4-10.4); PLATELET COUNT 112 10^3/UL (140-415); RED BLOOD COUNT 2.96 10^6/ul (4.70-6.10); RED CELL DISTRIBUTION WIDTH 16.3 % (11.5-14.5); WHITE BLOOD COUNT 46.9 10^3/ul (4.8-10.8)
[2016-12-13 05:14] LABS: POTASSIUM 3.7 mmol/L (3.5-5.1)
[2016-12-13 05:18] LABS: MAGNESIUM 1.8 mg/dl (1.7-2.5)
[2016-12-13] MEDS: PANTOPRAZOLE 40 MG INJ IV SCH (05:22)
[2016-12-13 05:27] LABS: CALCIUM 5.7 mg/dl (8.4-10.2)
[2016-12-13 05:28] LABS: CREATININE 2.23 mg/dl (0.61-1.24)
[2016-12-13] MEDS ORDERED: DEXTROSE 50% 50 ML SYRINGE ONE ×2 (05:59→06:00)
[2016-12-13] MEDS: DEXTROSE 50% 50 ML SYRINGE IV PRN (06:11)
[2016-12-13] MEDS: metroNIDAZOLE 250 MG TAB NGT SCH (06:11)
[2016-12-13] MEDS: ERYTHROMYCIN LACTOBIONATE 250 MG in SOD CHLORIDE 0.9% 100 ML IVPB SCH ×3 (06:12→17:43)
[2016-12-13] MEDS: DEXTROSE 5%-0.9% NACL 1,000 ML IV SCH (06:13)
[2016-12-13] MEDS ORDERED: GLUCAGON 1 MG INJ IM PRN (06:30)
[2016-12-13] MEDS ORDERED: GLUCOSE GEL 15 GRAM TUBE PO PRN ×2 (06:30)
[2016-12-13] MEDS ORDERED: GLUCOSE GEL 15 GRAM TUBE BUCCAL PRN (06:30)
[2016-12-13] MEDS: PHENYLephrine 160 MG in SOD CHLORIDE 0.9% 484 ML IV SCH ×2 (07:21→15:01)
[2016-12-13] MEDS: NORepinephrine 32 MG in SOD CHLORIDE 0.9% 218 ML IV SCH (07:23)
[2016-12-13 07:35] LABS: LYMPHOCYTES # 0.9 10^3/ul (0.8-2.9); MONOCYTE # 1.9 10^3/ul (0.3-0.9); MYELOCYTES # 0.5; NEUTROPHIL # 37.5 10^3/ul (1.6-7.5)
[2016-12-13] MEDS ORDERED: MAGNESIUM SULFATE 1 GM/D5W 100 ML IVPB ONE (08:00)
[2016-12-13] MEDS: LINEZOLID 600 MG/D5W (PMX) 300 ML IVPB SCH ×2 (08:46→22:54)
[2016-12-13] MEDS: VASOPRESSIN 60 UNIT in SOD CHLORIDE 0.9% 57 ML IV SCH ×2 (08:49→21:00)
[2016-12-13] MEDS: SODIUM HYPOCHLORITE 0.125% 473 ML BTL IRR SCH ×2 (08:51→21:42)
[2016-12-13] MEDS: COLLAGENASE 30 GM TUBE TOP SCH (08:51)
[2016-12-13 09:17] LABS: AADO2 Arterial 474.2 mmHg (7.0-24.0); Allen Test ACCEPTAB; Arterial Base Excess 2.1 mmol/L (-3.0-3); Arterial COHb 0.3 % (0.0-3.0); Arterial Fraction of Oxyhgb 97.6 % (93.0-99.0); Arterial HCO3 27.3 mmol/L (22.0-26.0); Arterial MetHb 0.9 % (0.0-1.5); Arterial Total Hemglobin 9.4 g/dl (12.0-18.0); Blood Gas Low PEEP Setting 0 cmH2O; MODE VENT - AC
[2016-12-13] MEDS: AMIODARONE 200 MG TAB GTB SCH (09:22)
[2016-12-13] MEDS ORDERED: CALCIUM GLUCONATE 10% 1 GM in SOD CHLORIDE 0.9% 100 ML IVPB ONE (09:30)
--- NOTE | 2016-12-13 09:53 | CONS ---
Date/Time of Note Date/Time of Note DATE: 12/13/16 TIME: 09:50 Assessment/Plan Assessment/Plan Additional Assessment/Plan Chest x-ray was reviewed from yesterday which is showing bilateral small pleural effusions with some element of basilar atelectasis. Ventilator setting; AC of 14, tidal volume 500, PEEP of 0, 100% FiO2. Patient currently on Levophed at 30 mics per minute, phenylephrine at 300 mics per minute. Next Assessment recommendations; 1. Patient admitted for severe sepsis due to sacral decubitus ulcers. Currently on broad-spectrum antibiotic coverage. 2. Cardiac arrhythmia. 3. Advanced dementia and Parkinson's disease. 4. Metastatic glossal cancer. 5. Right hydronephrosis. 6. Profound shock. 7. Worsening renal function. Patient now anuric. Next Continue current treatment. Prognosis is dismal. Consultation Date/Type/Reason Admit Date/Time Dec 07, 2016 at 01:03 Initial Consult Date 12/07/16 Type of Consultation: Pulmonary/critical care 24 HR Interval Summary Free Text/Dictation Patient's condition remains critical. Still requiring high-dose combination pressor support for blood pressure maintenance. Remains in atrial fibrillation. General exam; elderly male, orally intubated, unresponsive. Exam/Review of Systems Vital Signs Vitals Vital Signs Date Time Temp Pulse Resp B/P Pulse Ox O2 Delivery O2 Flow Rate FiO2 12/13/16 08:00 50 12/13/16 07:45 98.8 71 14 90/43 100 Mechanical Ventilator Intake and Output 12/12/16 12/12/16 12/13/16 15:00 23:00 07:00 Intake Total 1829.20 ml 1399.19 ml 1107.48 ml Output Total 250 ml 215 ml 150 ml Balance 1579.20 ml 1184.19 ml 957.48 ml Exam HEENT exam is; supple neck, there are bilateral corneal opacities. Patient has a multiple carious teeth. Orally intubated. Supple neck. No neck masses. No thyromegaly. There is a well-healed tracheostomy scar. Chest examination; diminished but clear vessel. S1-S2 audible, irregular rhythm. Abdomen examination; soft, G-tube in place. No organomegaly. Bowel sounds audible. Extremity examination; no peripheral edema. Back examination; dressing applied over sacrum. FLAG CAR DRIVER examination; patient remains unresponsive. Results Result Diagram: 12/13/16 0330 12/13/16 0330 Results 24 hrs Laboratory Tests Test 12/12/16 15:51 12/12/16 17:01 12/12/16 17:27 12/12/16 21:11 Urine Color LT. YELLOW Urine Clarity CLEAR Urine pH 8.0 Urine Specific [place] 1.010 Urine Ketones NEGATIVE Urine Nitrite NEGATIVE Urine Bilirubin 1+ H Urine Ictotest NEGATIVE Urine Urobilinogen 0.2 E.U./dL Urine Leukocyte Esterase 3+ H Urine Microscopic RBC 2-5 Urine Microscopic WBC >50 Urine Squamous Epithelial Cells MODERATE Urine Calcium Oxalate Crystals FEW Urine Bacteria MANY Urine Other Urine Hemoglobin 3+ H Urine Random Creatinine < 12.40 L Urine Random Sodium 24 L Urine Glucose NEGATIVE Urine Total Protein 114.0 H Blood Gas Specimen Source Blood arterial Arterial Blood Date Drawn 12/12/2016 5:33:01 PM Arterial Blood pH (Temp corrected) 7.464 H Arterial Blood pCO2 (Temp correct) 47.1 H Arterial Blood pO2 (Temp corrected) 130.0 H Arterial Blood HCO3 33.0 H Arterial Blood Base Excess 8.3 H Arterial Blood Oxygen Saturation 98.1 Eric Test ACCEPTAB Arterial Blood Gas Puncture Site Right Radial Arterial Blood Carboxyhemoglobin 0.3 Arterial Blood Methemoglobin 0.5 Blood Gas A-a O2 Differential 173.5 H Oxyhemoglobin Percent 97.3 Total Hemoglobin 10.2 L Blood Gas Temperature 37.0 Blood Gas Respiration Rate 14.0 Blood Gas Actual Respiration Rate 14 Blood Gas Modality VENT - AC FiO2 50.0 Blood Gas Tidal Volume 500.0 Blood Gas Notified Whom ab Blood Gas Notified Time 12/12/2016 5:41:17 PM Lactic Acid Level 6.8 *H Sodium Level 124 L Potassium Level 3.7 Chloride Level 75 L Carbon Dioxide Level 33 H Anion Gap 20 H Blood Urea Nitrogen 112 H Creatinine 2.26 H Glucose Level 52 #L Calcium Level 5.3 *L Magnesium Level 1.9 Test 12/13/16 03:30 12/13/16 05:32 12/13/16 06:22 12/13/16 06:38 White Blood Count 46.9 #H Red Blood Count 2.96 L Hemoglobin 8.7 L Hematocrit 27.2 L Mean Corpuscular Volume 91.9 Mean Corpuscular Hemoglobin 29.4 Mean Corpuscular Hemoglobin Concent 32.0 Red Cell Distribution Width 16.3 H Platelet Count 112 L Mean Platelet Volume 13.9 H Neutrophils % 80.0 H Band Neutrophils % 13.0 H Lymphocytes % 2.0 L Monocytes % 4.0 Eosinophils % Basophils % Myelocytes % 1.0 H Neutrophils # 37.5 H Lymphocytes # 0.9 Monocytes # 1.9 H Eosinophils # Basophils # Myelocytes # 0.5 Sodium Level 126 L Potassium Level 3.7 Chloride Level 76 L Carbon Dioxide Level 31 Anion Gap 23 H Blood Urea Nitrogen 109 H Creatinine 2.23 H Glucose Level 43 *L Calcium Level 5.7 *L Phosphorus Level 8.0 H Magnesium Level 1.8 Bedside Glucose 48 *L 155 117 Test 12/13/16 06:51 12/13/16 08:15 Bedside Glucose 108 Blood Gas Specimen Source Blood arterial Arterial Blood Date Drawn 12/13/2016 8:55:12 AM Arterial Blood pH (Temp corrected) 7.396 Arterial Blood pCO2 (Temp correct) 45.5 H Arterial Blood pO2 (Temp corrected) 193.3 H Arterial Blood HCO3 27.3 H Arterial Blood Base Excess 2.1 Arterial Blood Oxygen Saturation 98.8 Eric Test ACCEPTAB Arterial Blood Gas Puncture Site Right Radial Arterial Blood Carboxyhemoglobin 0.3 Arterial Blood Methemoglobin 0.9 Blood Gas A-a O2 Differential 474.2 H Oxyhemoglobin Percent 97.6 Total Hemoglobin 9.4 L Blood Gas Temperature 37.0 Blood Gas Respiration Rate 14.0 Blood Gas Actual Respiration Rate 17 Blood Gas Modality VENT - AC FiO2 100.0 Blood Gas Tidal Volume 500.0 Blood Gas Low PEEP Setting 0 Blood Gas Notified Whom JLD Blood Gas Notified Time 12/13/2016 9:17:00 AM Medications Medications Current Medications Ondansetron HCl (Zofran Inj) 4 mg Q6H PRN IV NAUSEA AND/OR VOMITING; Start at 02:00 Pantoprazole (Protonix Iv) 40 mg DAILY@06 IV Last administered on 12/13/16 05: 22; Admin Dose 40 MG; Start 12/07/16 at 06:00 Amiodarone HCl (Cordarone) 400 mg DAILY GTB Last administered on 12/13/16 09:22 ; Admin Dose 400 MG; Start 12/07/16 at 09:00 Collagenase (Santyl) 1 applic DAILY TOP Last administered on 12/12/16 09:00; Admin Dose 1 APPLIC; Start 12/07/16 at 09:30 Collagenase 1 applic 1 applic PRN PRN TOP WOUND USE Last administered on 21:08; Admin Dose 1 APPLIC; Start 12/07/16 at 08:30 Fentanyl 100 ml @ 2.5 mls/hr TITRATE IV Last administered on 12/12/16 23:06; Admin Dose 2.5 MLS/HR; Start 12/07/16 at 14:00 Midazolam HCl (Versed) 50 ml @ 1 mls/hr TITRATE IV Last administered on 06:42; Admin Dose 1 MLS/HR; Start 12/07/16 at 14:00 Sodium Hypochlorite 1 applic 1 applic BID IRR Last administered on 12/12/16 21: 07; Admin Dose 1 APPLIC; Start 12/09/16 at 21:00 Erythromycin Lactobionate 250 mg/Sodium Chloride 100 ml @ 100 mls/hr Q6 IVPB Last administered on 12/13/16 06:12; Admin Dose 100 MLS/HR; Start 12/11/16 at 18 :00 Linezolid (Zyvox 600mg/D5W (Pmx)) 300 ml @ 300 mls/hr Q12 IVPB Last administered on 12/13/16 08:46; Admin Dose 300 MLS/HR; Start 12/11/16 at 21:00 Metronidazole 250 mg 250 mg Q6 NGT Last administered on 12/13/16 06:11; Admin Dose 250 MG; Start 12/11/16 at 18:00 Norepinephrine 32 mg/Sodium Chloride 250 ml @ 0.46 mls/hr TITRATE IV Last administered on 12/13/16 07:23; Admin Dose 14.06 MLS/HR; Start 12/12/16 at 08:27 Phenylephrine HCl 160 mg/Sodium Chloride 500 ml @ 18.75 mls/ hr TITRATE IV Last administered on 12/13/16 07:21; Admin Dose 56.25 MLS/HR; Start 12/12/16 at 08:29 Vasopressin 60 unit/Sodium Chloride 60 ml @ 1.2 mls/hr Q12H IV Last administered on 12/13/16 08:49; Admin Dose 2.4 MLS/HR; Start 12/12/16 at 09:00 Caspofungin 50 mg/ Sodium Chloride 250 ml @ 250 mls/hr Q24H IVPB ; Start at 11:00 Colistimethate Sodium 75 mg/ Sodium Chloride 100 ml @ 200 mls/hr Q36H IVPB ; Start 12/13/16 at 21:00 Dextrose/Sodium Chloride (D5-NS) 1,000 ml @ 50 mls/hr Q20H IV Last administered on 12/13/16 06:13; Admin Dose 50 MLS/HR; Start 12/13/16 at 06:00 Miscellaneous Information 1 ea NOTE XX ; Start 12/13/16 at 06:30 Glucose (Glutose) 15 gm Q15M PRN PO DECREASED GLUCOSE; Start 12/13/16 at 06:30 Glucose (Glutose) 22.5 gm Q15M PRN PO DECREASED GLUCOSE; Start 12/13/16 at 06:30 Dextrose (D50w Syringe) 25 ml Q15M PRN IV DECREASED GLUCOSE; Start 12/13/16 at 06:30 Dextrose (D50w Syringe) 50 ml Q15M PRN IV DECREASED GLUCOSE Last administered on 12/13/16 06:11; Admin Dose 50 ML; Start 12/13/16 at 06:30 Glucagon (Glucagen) 1 mg Q15M PRN IM DECREASED GLUCOSE; Start 12/13/16 at 06:30 Glucose 15 gm 15 gm Q15M PRN BUCCAL DECREASED GLUCOSE; Start 12/13/16 at 06:30 Calcium Gluconate 1 gm/Sodium Chloride 110 ml @ 110 mls/hr ONCE ONCE IVPB Last administered on 12/13/16 09:22; Admin Dose 110 MLS/HR; Start 12/13/16 at 09: 30; Stop 12/13/16 at 10:29 Dopamine HCl/ Dextrose (D5W) 250 ml @ 1.89 mls/hr TITRATE IV ; Start 12/13/16 at 09:30 WERNER CHURCH December 13, 2016 09:53
[2016-12-13] MEDS: CASPOFUNGIN 50 MG in SOD CHLORIDE 0.9% 250 ML IVPB SCH (10:59)
--- NOTE | 2016-12-13 12:06 | PN ---
DATE: 12/13/2016 INFECTIOUS DISEASE PROGRESS NOTE SUBJECTIVE: No acute changes. The patient remains intubated on multiple pressors. Spiked fever yes terday of 101 at 8:00 a.m. and had been afebrile since that. PHYSICAL EXAMINATION: VITAL SIGNS: Temperature 98.8, pulse 74, respirations 15, blood pressure 109/54, saturation 100 on FIO2 of 50. WBC 46.9, H and H 8.7 and 27.2, platelets 112, neutrophils 880, bands 13, lymphs 2, BUN 109, creatinine 2.23. INDWELLINGS: Endotracheal tube, PEG, suprapubic catheter, PICC line placed on 12/12/2016. ANTIMICROBIALS: The patient remains on 1. IV Colistin. 2. IV Cancidas. 3. Zyvox. 4. Flagyl. PHYSICAL EXAMINATION: GENERAL: This is a chronically ill-appearing, elderly man who is nonverbal, noncommunicative. The p atient is in no distress. HEENT: Head atraumatic, normocephalic. Sclerae anicteric. Buccal mucosa dry. NECK: Supple. Trachea midline. CHEST: Rise symmetrical. Breath sounds with bilateral rhonchi. HEART: S1, S2. ABDOMEN: Distended, bowel tones absent. EXTREMITIES: Cyanotic and mottled. ASSESSMENT: 1. Severe sepsis with shock and multisystem organ failure. 2. Healthcare-associated pneumonia, possibly aspiration. 3. Metastatic disease. 4. Urinary tract infection with bilateral hydroureteronephrosis secondary to large pelvic mass. 5. Multiple chronic wounds status post multiple debridements in the past and wound culture grew mul ti-drug resistant organisms. 6. Gastroparesis. 7. Acute kidney injury. 8. Respiratory failure. PLAN: The patient remains hemodynamically unstable, overall doing poorly. He is covered with broad spectrum antibiotics. He is also on Flagyl and empiric antifungal coverage. He is being followed by multiple consultants. Overall, prognosis poor. Dictated By: LUIS ARMANDO MIRANDA FONDANT PUFF MAKER for MICHAEL RIVAS/CHELSI Conf#: [id number] DID#: [id number]
--- NOTE | 2016-12-13 12:27 | PN ---
Date/Time of Note Date/Time of Note DATE: 12/13/16 TIME: 11:58 Assessment/Plan Lines/Catheters IV Catheter Type (from [facility]): PICC Line Cruz in Place (from [facility]): Yes Assessment/Plan Chief Complaint/Hosp Course -Bilateral lower extremity atherosclerosis with gangrene: It seems the patient has developed discoloration of bilateral toes and forefoot. Unfortunately, the patient is in critical condition in which she is requiring pressor support to maintain HER blood pressure and SEPSIS. From a vascular surgery standpoint, we will plan to obtain noninvasive vascular studies; however, the patient will have limited vascular intervention secondary to being intubated, sedated, and Parkinson's disease and baseline dementia. Unfortunately, if the patient does develop worsening of his wounds and worsening gangrene the patient would require primary amputation for life saving procedure. Otherwise, we will plan to follow from a vascular standpoint. -Optimize vascular status (BP meds, diet, nutrition, exercise, sugar control, antiplatelets). -Discussed findings, plan and management with the primary service. -Thank you for allowing us to partake in the care of your patient. Please call with any questions. Problems: Subjective 24 Hr Interval Summary Subjective hx not possible: pt non-verbal, pt critical Exam/Review of Systems Vital Signs Vitals Vital Signs Date Time Temp Pulse Resp B/P Pulse Ox O2 Delivery O2 Flow Rate FiO2 12/13/16 11:00 77 16 103/51 100 Mechanical Ventilator 12/13/16 08:00 50 12/13/16 07:45 98.8 Intake and Output 12/12/16 12/12/16 12/13/16 15:00 23:00 07:00 Intake Total 1829.20 ml 1399.19 ml 1107.48 ml Output Total 250 ml 215 ml 150 ml Balance 1579.20 ml 1184.19 ml 957.48 ml Exam Free Text/Dictation GENERAL: Patient is intubated and sedated, nonresponsive. CARDIOVASCULAR: S1, S2 present PULMONARY: Coarse breath sounds bilaterally with some crackles at the bases. ABDOMEN: Soft, nontender, nondistended. PEG tube intact and functional. EXTREMITIES: Bilateral palpable femoral pulses, nonpalpable pedal pulses, bluish discoloration of all the toes up to the forefoot and heel discoloration and break of the skin. Capillary refill about 3 to 4 seconds. Results Result Diagram: 12/13/16 0330 12/13/16 0330 ROXANNE OTOOLE MD December 13, 2016 12:27
[2016-12-13] MEDS: DOPamine 800 MG in DEXTROSE 5% 230 ML IV SCH (12:51)
[2016-12-13] MEDS: metroNIDAZOLE 500 MG/NS (PMX) 100 ML IVPB SCH (13:55)
--- NOTE | 2016-12-13 15:06 | RADRPT ---
PROCEDURE: XR Chest. CLINICAL INDICATION: Congestive heart failure. TECHNIQUE: Chest x-ray, single view. COMPARISON: 12/12/2016. FINDINGS: The cardiac silhouette is mildly enlarged and unchanged in size. Aortic arch atherosclerotic calcif ication is present. The endotracheal tube terminates within the mid trachea. A left upper extremit y PICC terminates within the lower SVC. Hazy opacification lower chest is present and unchanged and most compatible with small layering pleural effusions. IMPRESSION: Mild cardiac enlargement with small layering pleural effusions, unchanged. RPTAT: HLST .Joana Ram MD, Date Time Electronically viewed and signed by .Joana Ram MD, on 12/13/2016 15:05 .T/
--- NOTE | 2016-12-13 16:50 | PN ---
Date/Time of Note Date/Time of Note DATE: 12/13/16 TIME: 16:49 Assessment/Plan Lines/Catheters IV Catheter Type (from [facility]): PICC Line Cruz in Place (from [facility]): Yes Assessment/Plan Chief Complaint/Hosp Course 1. Decubitus ulceration with necrotic tissue -debridement when medically stable -off loading -optimization of nutrition -vit c -local care 2. Sepsis with shock, multifactorial (le ischemia, wounds, lung, ? other) with worsening lactic acidosis and leukocytosis. -abx -supportive -wound care -pulmonary toilette -aspiration precautions 3. Dysphagia on tube feeds 4. Anemia -monitor 5. Pelvic mass, hx of tongue and prostate cancer, currently with hydronephrosis -heme/onc -urology 6. Renal insufficiency -judicious fluid management 7. Diastolic heart failure -cardiac optimization -judicious fluid management 8. Hypoxemic respiratory failure with advanced COPD and aspiration PNAs -pulmonary toilette -aspiration precautions 9. Parkinson disease/neurodegenerative disorder with dementia -medical optimization Thank you, Problems: Subjective 24 Hr Interval Summary Worsening Leukocytosis. No fevers or chills. No cough. No sz. No rash. Wounds. No vomiting. Bowel function. No bleeding. No bloating. Exam/Review of Systems Vital Signs Vitals Vital Signs Date Time Temp Pulse Resp B/P Pulse Ox O2 Delivery O2 Flow Rate FiO2 12/13/16 16:45 85 14 98/56 99 Mechanical Ventilator 12/13/16 16:00 98.5 12/13/16 12:00 100 Intake and Output 12/12/16 12/12/16 12/13/16 15:00 23:00 07:00 Intake Total 1829.20 ml 1399.19 ml 1107.48 ml Output Total 250 ml 215 ml 150 ml Balance 1579.20 ml 1184.19 ml 957.48 ml Exam Free Text/Dictation Constitutional: No oriented Psych: No nl mood/affect Head: normocephalic Eyes: EOMI, PERRL, nl conjunctiva, No icteric ENMT: nl external ears & nose, No mucosa pink and moist Neck: jvd, No non-tender, No supple Respiratory: No congested cough, No normal air movement Cardiovascular: No edema, No regular rate and rhythm, decreased pulses LEs Gastrointestinal: non-tender, soft, No rebound or guarding Musculoskeletal: No nl extremities to inspection, No nl gait and stance Extremities: No calf tenderness, No cyanosis, LE color changes Neurological: No nl mental status, No nl speech, No nl strength Skin: rash or lesions (decubitus ulcers with necrotic debris), No diaphoresis Lymph: nontender Results Result Diagram: 12/13/16 0330 12/13/16 0330 CHELSY CAIN MD December 13, 2016 16:50
[2016-12-13] MEDS ORDERED: ALBUMIN HUMAN 25% 100 ML IV ONE (20:30)
[2016-12-13] MEDS ORDERED: ALBUMIN HUMAN 25% 100 ML ONE (20:31)
--- NOTE | 2016-12-13 20:39 | PN ---
DATE: 12/13/2016 SUBJECTIVE: The patient remains critically ill on multiple pressors. Currently, 3 pressors, on ful l ventilatory support. The patient has clinically decompensated overnight. Please note I spoke wit h the patient's in detail, explaining to her of his poor prognosis and clinical decline. The p franko's voiced understanding. No other events noted. OBJECTIVE: VITAL SIGNS: Blood pressure is ____, respiration is 14, pulse 71, temperature 98.8. HEENT: Head is normocephalic. NECK: Supple. HEART: Regular rate. LUNGS: Show diminished breath sounds at the base. Positive rhonchi and crackles. ABDOMEN: Soft, nontender to palpation. EXTREMITIES: Negative for clubbing, cyanosis. Positive edema. There is noted discoloration of the toes. DERMATOLOGIC: No rashes. MUSCULOSKELETAL: Positive decubitus wound. NEUROLOGIC: The patient is obtunded. LABORATORY DATA: Shows white count 46.9, hemoglobin 8.7, hematocrit 27.2. White count is 112. Sod ium 126, potassium 3.7, chloride 76, BUN 109, creatinine 2.23, glucose 48, calcium 5.7, phosphorus 8 .0. IMAGING: The patient's x-ray is pending. ASSESSMENT AND PLAN: 1. Septic shock, etiology is multifactorial secondary to healthcare-associated pneumonia, decubitus wound, possible urinary tract infection. The patient is critically ill, currently maxed out on 3 p ressors and IV fluids. On broad spectrum antibiotics. We will continue current treatment plan. Fo llow up with infectious disease and log rafter for further recommendations. 2. Ventilator dependent respiratory failure. Vent settings have been reviewed. ABG has been revie wed. Continue to monitor. 3. Oliguric acute kidney injury on top of chronic kidney disease, etiology is secondary to acute tu bular necrosis due to shock and septic acute kidney injury. The patient remains in injury phase of acute tubular necrosis. The patient is hemodynamically unstable for dialysis at this time as he is on multiple pressors and hypotensive. I explained in detail to the patient's of his instabilit y for dialysis. She voiced understanding. We will continue current treatment plan, supportive care , renally dose all medications. If patient should become more hemodynamically stable, would conside r starting renal replacement therapy. 4. Mixed acid base disorder. The patient had a metabolic alkalemia, respiratory alkalemia. The pa sima's bicarbonate drip was discontinued. Repeat ABG shows ____ improvement. We will follow up an ABG this morning. 5. Hyponatremia secondary to acute kidney injury causing decrease ____ free water urinary excretion . The patient's piggybacks ____ normal saline. Sodium levels have improved. Continue to monitor. 6. Hypokalemia, improved. Continue to monitor. 7. Mineral bone disorder. The patient is hyperphosphatemic secondary to acute kidney injury and hy pocalcemic. Will give 1 dose of calcium gluconate and monitor closely. 8. Acute encephalopathy, ____. Continue to monitor. 9. Anemia. The patient is status post blood transfusion. Continue to monitor H and H levels. 10. Transaminitis secondary to ischemic septic shock. We will continue to monitor. Follow up with GI. 11. Atrial fibrillation, continue current medical management. 12. Bilateral hydronephrosis secondary to pelvic mass. The patient was seen by Dr. Kimbrough, adam int ervention at this time. 13. Leukocytosis secondary to sepsis. Continue to monitor. 14. ____ continue wound care. 15. Possible lower extremity ischemia. The patient had an arterial ultrasound which showed abnorma l blood flows. We will continue to monitor. 16. Deep venous thrombosis and gastrointestinal prophylaxis. Continue proton pump inhibitor and se quential leg squeezers. Please note I spent over 40 minutes of critical care time with this patient. Dictated By: JAX ANDRADE/CHELSI Conf#: [id number] DID#: [id number]
--- NOTE | 2016-12-13 22:00 | OPR ---
DATE OF OPERATION: PREOPERATIVE DIAGNOSIS: Renal failure. POSTOPERATIVE DIAGNOSIS: Renal failure. OPERATION PERFORMED: Left femoral hemodialysis catheter placement. SURGEON: Jeana Rubi MD ANESTHESIA: Local. CONSENT: Risks, benefits, complications, alternative therapies explained to the patient's family, c onsent obtained. OPERATIVE TECHNIQUE: The patient was placed in supine position, prepped and draped in usual sterile fashion. Lidocaine 1% was used throughout the operation for local anesthesia. Access was gained i n the left femoral vein. Guidewire was advanced through without any difficulty. Subcutaneous tissu es dilated. A 20 cm dialysis catheter advanced over a guidewire, secured to skin using silk sutures . Both ports of the catheter were aspirated and injected using saline solution. The patient tolera graciela procedure well. Dictated By: JEANA RUBI MD FM/NTS Conf#: [id number] DID#: [id number] CC: JAX SLATER DO;*EndCC*
[2016-12-13] MEDS: COLISTIMETHATE 75 MG in SOD CHLORIDE 0.9% 100 ML IVPB SCH (22:01)
--- NOTE | 2016-12-13 22:34 | PN ---
DATE: 12/13/2016 SUBJECTIVE: The patient is on a respirator. He is not capable of giving any complaints. His was at his bedside. The patient has a suprapubic tube that is draining clear urine, but appears da t the patient's renal function is deteriorating and it appears there is plan to do a hemodialysis on him. VITAL SIGNS: His temperature is 98.5. Pulse is 85, respiration 23, blood pressure 89/54. LABORATORY DATA: CBC: White count of 46,900; hemoglobin 8.7, hematocrit 27.2, platelet count is 11 2,000. Sodium 126, potassium 3.7, chloride 76, CO2 of 31. The BUN is 109, creatinine 2.23. IMPRESSION: 1. Respiratory failure. The patient is on a respirator. 2. History of prostate cancer status post radiation. 3. Pelvic mass. 4. History of tongue cancer status post surgery. 5. The patient now has renal failure where he needs to be dialyzed. PLAN: The was at his bedside and I did have a long discussion with her about his condition. I t appears that she is trying to go by his wishes in that he has previously expressed his desire to h ave everything done and she made a statement as the patient only does not believe in another live, s o he wants to have everything done. The patient, therefore, is going to have dialysis and he is on the respirator and we shall continue that. Dictated By: SERJIO JEFFERSON/CHELSI Conf#: [id number] DID#: [id number] CC: JAX SLATER DO;*EndCC*
[2016-12-14] VITALS (111 sets, daily range): BP systolic 78–124; BP diastolic 42–68; PULSE 71–108; RESP 14–28
[2016-12-14] MEDS: PHENYLephrine 160 MG in SOD CHLORIDE 0.9% 484 ML IV SCH ×3 (00:05→17:45)
[2016-12-14] MEDS: metroNIDAZOLE 500 MG/NS (PMX) 100 ML IVPB SCH ×4 (00:07→22:31)
[2016-12-14] MEDS: ERYTHROMYCIN LACTOBIONATE 250 MG in SOD CHLORIDE 0.9% 100 ML IVPB SCH ×4 (01:18→17:45)
[2016-12-14] MEDS: ALBUTEROL 18 GM INHALER INH SCH ×6 (01:32→21:15)
[2016-12-14] MEDS: DEXTROSE 5%-0.9% NACL 1,000 ML IV SCH ×2 (02:00→03:23)
[2016-12-14 04:42] LABS: ADD SCAN DIFF NO
[2016-12-14 04:54] LABS: ABNORMAL IP MESSAGE 1; BASOPHIL # 0.1 10^3/ul (0.0-0.1); BASOPHILS % 0.3 % (0.0-2.0); HEMATOCRIT 23.1 % (42.0-52.0); HEMOGLOBIN 7.2 g/dl (14.0-18.0); LYMPHOCYTES # 0.6 10^3/ul (0.8-2.9); LYMPHOCYTES % 1.5 % (15.0-51.0); MEAN CORPUSCULAR HEMOGLOBIN 29.5 pg (29.0-33.0); MEAN CORPUSCULAR HGB CONC 31.2 g/dl (32.0-37.0); MEAN CORPUSCULAR VOLUME 94.7 fl (82.0-101.0); MEAN PLATELET VOLUME 13.6 fl (7.4-10.4); MONOCYTE # 1.2 10^3/ul (0.3-0.9); MONOCYTES % 2.9 % (0.0-11.0); NUCLEATED RED BLOOD CELLS% 0.1 /100WBC (0.0-0.0); PLATELET COUNT 93 10^3/UL (140-415); RED BLOOD COUNT 2.44 10^6/ul (4.70-6.10); RED CELL DISTRIBUTION WIDTH 16.6 % (11.5-14.5)
[2016-12-14 05:11] LABS: NEUTROPHILS % 92.5 % (39.0-77.0); POTASSIUM 3.3 mmol/L (3.5-5.1)
[2016-12-14 05:13] LABS: CREATININE 1.56 mg/dl (0.61-1.24)
[2016-12-14 05:14] LABS: CALCIUM 6.6 mg/dl (8.4-10.2); PHOSPHORUS 5.8 mg/dl (2.5-4.9)
[2016-12-14 05:15] LABS: MAGNESIUM 1.9 mg/dl (1.7-2.5)
[2016-12-14] MEDS: NORepinephrine 32 MG in SOD CHLORIDE 0.9% 218 ML IV SCH (05:17)
[2016-12-14] MEDS: VASOPRESSIN 60 UNIT in SOD CHLORIDE 0.9% 57 ML IV SCH ×2 (05:18→21:00)
[2016-12-14] MEDS: PANTOPRAZOLE 40 MG INJ IV SCH (05:29)
[2016-12-14] MEDS ORDERED: ALTEPLASE (CATHFLO) 2 MG INJ CATHETER PRN (07:00)
[2016-12-14] MEDS ORDERED: POTASSIUM CHLORIDE 20 MEQ in SOD CHLORIDE 0.9% 100 ML IVPB ONE (07:00)
[2016-12-14] MEDS: DOPamine 800 MG in DEXTROSE 5% 230 ML IV SCH (07:28)
[2016-12-14] MEDS: LINEZOLID 600 MG/D5W (PMX) 300 ML IVPB SCH ×2 (08:05→21:07)
[2016-12-14] MEDS: SODIUM HYPOCHLORITE 0.125% 473 ML BTL IRR SCH ×2 (08:19→21:51)
[2016-12-14] MEDS: AMIODARONE 200 MG TAB GTB SCH (08:19)
[2016-12-14] MEDS: COLLAGENASE 30 GM TUBE TOP SCH (08:20)
--- NOTE | 2016-12-14 08:20 | CONS ---
Date/Time of Note Date/Time of Note DATE: 12/14/16 TIME: 08:15 Consult Date/Type/Reason Admit Date/Time Dec 07, 2016 at 01:03 Initial Consult Date 12/07/16 Type of Consultation: nephrology Subjective pt. seen and examined s/p HD yesterday, tolerated ok. low h/h this am. poor uop. on vent 60%fio2. still on 3 pressors. PE: HEENT: Head is normocephalic. NECK: Supple. HEART: Regular rate. LUNGS: Show diminished breath sounds at the base. Positive rhonchi and crackles. ABDOMEN: Soft, nontender to palpation. EXTREMITIES: Negative for clubbing, cyanosis. Positive edema. There is noted discoloration of the toes. DERMATOLOGIC: No rashes. MUSCULOSKELETAL: Positive decubitus wound. NEUROLOGIC: The patient is obtunded. Objective Vital Signs Date Time Temp Pulse Resp B/P Pulse Ox O2 Delivery O2 Flow Rate FiO2 12/14/16 06:45 89 14 94/46 99 12/14/16 06:00 60 12/14/16 06:00 Mechanical Ventilator 12/14/16 05:00 101.0 Intake and Output 12/13/16 12/13/16 12/14/16 15:00 23:00 07:00 Intake Total 1841.20 ml 1392.46 ml 1733.44 ml Output Total 210 ml 155 ml 380 ml Balance 1631.20 ml 1237.46 ml 1353.44 ml Results/Medications Result Diagram: 12/14/16 0415 12/14/16 0415 Results 24 hrs Laboratory Tests Test 12/13/16 10:07 12/14/16 04:15 12/14/16 06:38 Lactic Acid Level 8.7 *H White Blood Count 40.0 H Red Blood Count 2.44 L Hemoglobin 7.2 L Hematocrit 23.1 L Mean Corpuscular Volume 94.7 Mean Corpuscular Hemoglobin 29.5 Mean Corpuscular Hemoglobin Concent 31.2 L Red Cell Distribution Width 16.6 H Platelet Count 93 L Mean Platelet Volume 13.6 H Neutrophils % 92.5 H Lymphocytes % 1.5 L Monocytes % 2.9 Eosinophils % 0.0 Basophils % 0.3 Nucleated Red Blood Cells % 0.1 H Neutrophils # 37.0 H Lymphocytes # 0.6 L Monocytes # 1.2 H Eosinophils # 0.0 Basophils # 0.1 Nucleated Red Blood Cells # 0.0 Sodium Level 134 L Potassium Level 3.3 L Chloride Level 92 #L Carbon Dioxide Level 26 Anion Gap 19 H Blood Urea Nitrogen 69 #H Creatinine 1.56 H Glucose Level 88 # Calcium Level 6.6 L Phosphorus Level 5.8 #H Magnesium Level 1.9 Lab Scanned Report BLOOD TRANSFUSION Medications Current Medications Ondansetron HCl (Zofran Inj) 4 mg Q6H PRN IV NAUSEA AND/OR VOMITING; Start at 02:00 Pantoprazole (Protonix Iv) 40 mg DAILY@06 IV Last administered on 12/14/16 05: 29; Admin Dose 40 MG; Start 12/07/16 at 06:00 Amiodarone HCl (Cordarone) 400 mg DAILY GTB Last administered on 12/13/16 09:22 ; Admin Dose 400 MG; Start 12/07/16 at 09:00 Collagenase (Santyl) 1 applic DAILY TOP Last administered on 12/12/16 09:00; Admin Dose 1 APPLIC; Start 12/07/16 at 09:30 Collagenase 1 applic 1 applic PRN PRN TOP WOUND USE Last administered on 21:08; Admin Dose 1 APPLIC; Start 12/07/16 at 08:30 Fentanyl 100 ml @ 2.5 mls/hr TITRATE IV Last administered on 12/12/16 23:06; Admin Dose 2.5 MLS/HR; Start 12/07/16 at 14:00 Midazolam HCl (Versed) 50 ml @ 1 mls/hr TITRATE IV Last administered on 06:42; Admin Dose 1 MLS/HR; Start 12/07/16 at 14:00 Sodium Hypochlorite 1 applic 1 applic BID IRR Last administered on 12/13/16 21: 42; Admin Dose 1 APPLIC; Start 12/09/16 at 21:00 Erythromycin Lactobionate 250 mg/Sodium Chloride 100 ml @ 100 mls/hr Q6 IVPB Last administered on 12/14/16 06:28; Admin Dose 100 MLS/HR; Start 12/11/16 at 18 :00 Linezolid 300 ml @ 300 mls/hr Q12 IVPB Last administered on 12/14/16 08:05; Admin Dose 300 MLS/HR; Start 12/11/16 at 21:00 Norepinephrine 32 mg/Sodium Chloride 250 ml @ 0.46 mls/hr TITRATE IV Last administered on 12/14/16 05:17; Admin Dose 14.06 MLS/HR; Start 12/12/16 at 08:27 Phenylephrine HCl 160 mg/Sodium Chloride 500 ml @ 18.75 mls/ hr TITRATE IV Last administered on 12/14/16 00:05; Admin Dose 56.25 MLS/HR; Start 12/12/16 at 08:29 Vasopressin 60 unit/Sodium Chloride 60 ml @ 1.2 mls/hr Q12H IV Last administered on 12/14/16 05:18; Admin Dose 2.4 MLS/HR; Start 12/12/16 at 09:00 Caspofungin 50 mg/ Sodium Chloride 250 ml @ 250 mls/hr Q24H IVPB Last administered on 12/13/16 10:59; Admin Dose 250 MLS/HR; Start 12/13/16 at 11:00 Colistimethate Sodium 75 mg/ Sodium Chloride 100 ml @ 200 mls/hr Q36H IVPB Last administered on 12/13/16 22:01; Admin Dose 200 MLS/HR; Start 12/13/16 at 21: 00 Dextrose/Sodium Chloride (D5-NS) 1,000 ml @ 50 mls/hr Q20H IV Last administered on 12/14/16 03:23; Admin Dose 50 MLS/HR; Start 12/13/16 at 06:00 Miscellaneous Information 1 ea NOTE XX ; Start 12/13/16 at 06:30 Glucose (Glutose) 15 gm Q15M PRN PO DECREASED GLUCOSE; Start 12/13/16 at 06:30 Glucose (Glutose) 22.5 gm Q15M PRN PO DECREASED GLUCOSE; Start 12/13/16 at 06:30 Dextrose (D50w Syringe) 25 ml Q15M PRN IV DECREASED GLUCOSE; Start 12/13/16 at 06:30 Dextrose (D50w Syringe) 50 ml Q15M PRN IV DECREASED GLUCOSE Last administered on 12/13/16 06:11; Admin Dose 50 ML; Start 12/13/16 at 06:30 Glucagon (Glucagen) 1 mg Q15M PRN IM DECREASED GLUCOSE; Start 12/13/16 at 06:30 Glucose 15 gm 15 gm Q15M PRN BUCCAL DECREASED GLUCOSE; Start 12/13/16 at 06:30 Dopamine HCl 800 mg/Dextrose 250 ml @ 1.89 mls/hr TITRATE IV Last administered on 12/14/16 07:28; Admin Dose 18.97 MLS/HR; Start 12/13/16 at 09:30 Metronidazole 100 ml @ 100 mls/hr Q8 IVPB Last administered on 12/14/16 05:30 ; Admin Dose 100 MLS/HR; Start 12/13/16 at 14:00 Potassium Chloride/Sodium Chloride (KCl/NS) 110 ml @ 55 mls/hr ONCE ONCE IVPB Last administered on 12/14/16 07:25; Admin Dose 55 MLS/HR; Start 12/14/16 at 07 :00; Stop 12/14/16 at 08:59 Assessment/Plan Chief Complaint/Hosp Course 1. Septic shock, etiology is multifactorial secondary to healthcare-associated pneumonia, decubitus wound, possible urinary tract infection. The patient is critically ill, currently maxed out on 3 pressors and IV fluids. On broad spectrum antibiotics. We will continue current treatment plan. Follow up with infectious disease and post anesthesia nurse for further recommendations. 2. Ventilator dependent respiratory failure. Vent settings have been reviewed. ABG has been reviewed. Continue to monitor. 3. Oliguric acute kidney injury on top of chronic kidney disease, etiology is secondary to acute tubular necrosis due to shock and septic acute kidney injury. The patient remains in injury phase of acute tubular necrosis. The patient is hemodynamically unstable for dialysis at this time as he is on multiple pressors and hypotensive. I explained in detail to the patient's of his instability for dialysis. She voiced understanding. We will continue current treatment plan, supportive care, renally dose all medications. If patient should become more hemodynamically stable, would consider starting renal replacement therapy. 4. Mixed acid base disorder. The patient had a metabolic alkalemia, respiratory alkalemia. The patient's bicarbonate drip was discontinued. Repeat ABG shows ____ improvement. We will follow up an ABG this morning. 5. Hyponatremia secondary to acute kidney injury causing decrease ____ free water urinary excretion. The patient's piggybacks ____ normal saline. Sodium levels have improved. Continue to monitor. 6. Hypokalemia, improved. Continue to monitor. 7. Mineral bone disorder. The patient is hyperphosphatemic secondary to acute kidney injury and hypocalcemic. Will give 1 dose of calcium gluconate and monitor closely. 8. Acute encephalopathy, ____. Continue to monitor. 9. Anemia. The patient is status post blood transfusion. Continue to monitor H and H levels. 10. Transaminitis secondary to ischemic septic shock. We will continue to monitor. Follow up with GI. 11. Atrial fibrillation, continue current medical management. 12. Bilateral hydronephrosis secondary to pelvic mass. The patient was seen by Dr. Kimbruogh, no intervention at this time. 13. Leukocytosis secondary to sepsis. Continue to monitor. 14. ____ continue wound care. 15. Possible lower extremity ischemia. The patient had an arterial ultrasound which showed abnormal blood flows. We will continue to monitor. 16. Deep venous thrombosis and gastrointestinal prophylaxis. Continue proton pump inhibitor and sequential leg squeezers. Please note I spent over 40 minutes of critical care time with this patient. Problems: XAVIER SON MD December 14, 2016 08:19
[2016-12-14] MEDS ORDERED: ACETAMINOPHEN 650MG/20.3ML CUP NGT PRN (08:30)
[2016-12-14] MEDS ORDERED: POTASSIUM CHLORIDE 50 ML IVPB ONE (09:00)
--- NOTE | 2016-12-14 09:28 | CONS ---
Date/Time of Note Date/Time of Note DATE: 12/14/16 TIME: 09:20 Assessment/Plan Assessment/Plan Additional Assessment/Plan Ventilator settings; AC of 14, tidal volume 500, PEEP of 0, 60% FiO2. Patient currently on phenylephrine drip at 300 mics per minute, Levophed 30 mics per minute, dopamine at 20 mics per kilogram per minute. Assessment recommendations; 1. Patient admitted for respiratory failure due to severe sepsis 2. Severe decubitus ulcers. 3. Profound shock. 4. Generalized anasarca, status post ultrafiltration yesterday. 5. Metastatic renal cell cancer. 7. Chronic arrhythmia. 8. Advanced dementia and Parkinson's disease. 9. Anemia. 10. Right hydronephrosis. 11. Vascular insufficiency. Continue current supportive care. Prognosis is dismal. Consultation Date/Type/Reason Admit Date/Time Dec 07, 2016 at 01:03 Initial Consult Date 12/07/16 Type of Consultation: Pulmonary/critical care 24 HR Interval Summary Free Text/Dictation Patient's condition remains critical. Still requiring high-dose combination pressor support for blood pressure maintenance. Patient underwent ultrafiltration yesterday for generalized edema. General exam; elderly male, orally intubated, unresponsive. Currently in no distress. Exam/Review of Systems Vital Signs Vitals Vital Signs Date Time Temp Pulse Resp B/P Pulse Ox O2 Delivery O2 Flow Rate FiO2 12/14/16 08:15 100.3 90 18 104/48 98 Mechanical Ventilator 12/14/16 08:00 60 Intake and Output 12/13/16 12/13/16 12/14/16 15:00 23:00 07:00 Intake Total 1841.20 ml 1392.46 ml 1733.44 ml Output Total 210 ml 155 ml 380 ml Balance 1631.20 ml 1237.46 ml 1353.44 ml Exam HEENT examination; supple neck, positive JVD. No lymphadenopathy. Midline trachea. Orally intubated patient has multiple carious teeth. There is a well- healed tracheostomy scar. Bilateral corneal opacities are present. Chest examination of Abiel diminished breath sound bilaterally. No additional. S1-S2 audible, irregular rhythm. Abdomen examination; soft, non-distended. No organomegaly. G-tube in place. Bowel sounds are sluggish. Extremity examination; 2+ anasarca. There is mottling of feet bilaterally. Extremities are cold to touch. Peripheral pulses not palpable. ADMINISTRATION PROFESSIONAL examination; patient remains unresponsive. Results Result Diagram: 12/14/16 0415 12/14/16 0415 Results 24 hrs Laboratory Tests Test 12/13/16 10:07 12/14/16 04:15 12/14/16 06:38 Lactic Acid Level 8.7 *H White Blood Count 40.0 H Red Blood Count 2.44 L Hemoglobin 7.2 L Hematocrit 23.1 L Mean Corpuscular Volume 94.7 Mean Corpuscular Hemoglobin 29.5 Mean Corpuscular Hemoglobin Concent 31.2 L Red Cell Distribution Width 16.6 H Platelet Count 93 L Mean Platelet Volume 13.6 H Neutrophils % 92.5 H Lymphocytes % 1.5 L Monocytes % 2.9 Eosinophils % 0.0 Basophils % 0.3 Nucleated Red Blood Cells % 0.1 H Neutrophils # 37.0 H Lymphocytes # 0.6 L Monocytes # 1.2 H Eosinophils # 0.0 Basophils # 0.1 Nucleated Red Blood Cells # 0.0 Sodium Level 134 L Potassium Level 3.3 L Chloride Level 92 #L Carbon Dioxide Level 26 Anion Gap 19 H Blood Urea Nitrogen 69 #H Creatinine 1.56 H Glucose Level 88 # Calcium Level 6.6 L Phosphorus Level 5.8 #H Magnesium Level 1.9 Lab Scanned Report BLOOD TRANSFUSION Medications Medications Current Medications Ondansetron HCl (Zofran Inj) 4 mg Q6H PRN IV NAUSEA AND/OR VOMITING; Start at 02:00 Pantoprazole (Protonix Iv) 40 mg DAILY@06 IV Last administered on 12/14/16 05: 29; Admin Dose 40 MG; Start 12/07/16 at 06:00 Amiodarone HCl (Cordarone) 400 mg DAILY GTB Last administered on 12/14/16 08:19 ; Admin Dose 400 MG; Start 12/07/16 at 09:00 Collagenase (Santyl) 1 applic DAILY TOP Last administered on 12/14/16 08:20; Admin Dose 1 APPLIC; Start 12/07/16 at 09:30 Collagenase 1 applic 1 applic PRN PRN TOP WOUND USE Last administered on 21:08; Admin Dose 1 APPLIC; Start 12/07/16 at 08:30 Fentanyl 100 ml @ 2.5 mls/hr TITRATE IV Last administered on 12/12/16 23:06; Admin Dose 2.5 MLS/HR; Start 12/07/16 at 14:00 Midazolam HCl (Versed) 50 ml @ 1 mls/hr TITRATE IV Last administered on 06:42; Admin Dose 1 MLS/HR; Start 12/07/16 at 14:00 Sodium Hypochlorite 1 applic 1 applic BID IRR Last administered on 12/14/16 08: 19; Admin Dose 1 APPLIC; Start 12/09/16 at 21:00 Erythromycin Lactobionate 250 mg/Sodium Chloride 100 ml @ 100 mls/hr Q6 IVPB Last administered on 12/14/16 06:28; Admin Dose 100 MLS/HR; Start 12/11/16 at 18 :00 Linezolid 300 ml @ 300 mls/hr Q12 IVPB Last administered on 12/14/16 08:05; Admin Dose 300 MLS/HR; Start 12/11/16 at 21:00 Norepinephrine 32 mg/Sodium Chloride 250 ml @ 0.46 mls/hr TITRATE IV Last administered on 12/14/16 05:17; Admin Dose 14.06 MLS/HR; Start 12/12/16 at 08:27 Phenylephrine HCl 160 mg/Sodium Chloride 500 ml @ 18.75 mls/ hr TITRATE IV Last administered on 12/14/16 00:05; Admin Dose 56.25 MLS/HR; Start 12/12/16 at 08:29 Vasopressin 60 unit/Sodium Chloride 60 ml @ 1.2 mls/hr Q12H IV Last administered on 12/14/16 05:18; Admin Dose 2.4 MLS/HR; Start 12/12/16 at 09:00 Caspofungin 50 mg/ Sodium Chloride 250 ml @ 250 mls/hr Q24H IVPB Last administered on 12/13/16 10:59; Admin Dose 250 MLS/HR; Start 12/13/16 at 11:00 Colistimethate Sodium 75 mg/ Sodium Chloride 100 ml @ 200 mls/hr Q36H IVPB Last administered on 12/13/16 22:01; Admin Dose 200 MLS/HR; Start 12/13/16 at 21: 00 Dextrose/Sodium Chloride (D5-NS) 1,000 ml @ 50 mls/hr Q20H IV Last administered on 12/14/16 03:23; Admin Dose 50 MLS/HR; Start 12/13/16 at 06:00 Miscellaneous Information 1 ea NOTE XX ; Start 12/13/16 at 06:30 Glucose (Glutose) 15 gm Q15M PRN PO DECREASED GLUCOSE; Start 12/13/16 at 06:30 Glucose (Glutose) 22.5 gm Q15M PRN PO DECREASED GLUCOSE; Start 12/13/16 at 06:30 Dextrose (D50w Syringe) 25 ml Q15M PRN IV DECREASED GLUCOSE; Start 12/13/16 at 06:30 Dextrose (D50w Syringe) 50 ml Q15M PRN IV DECREASED GLUCOSE Last administered on 12/13/16 06:11; Admin Dose 50 ML; Start 12/13/16 at 06:30 Glucagon (Glucagen) 1 mg Q15M PRN IM DECREASED GLUCOSE; Start 12/13/16 at 06:30 Glucose 15 gm 15 gm Q15M PRN BUCCAL DECREASED GLUCOSE; Start 12/13/16 at 06:30 Dopamine HCl 800 mg/Dextrose 250 ml @ 1.89 mls/hr TITRATE IV Last administered on 12/14/16 07:28; Admin Dose 18.97 MLS/HR; Start 12/13/16 at 09:30 Metronidazole (Flagyl 500 Mg (Pmx)) 100 ml @ 100 mls/hr Q8 IVPB Last administered on 12/14/16 05:30; Admin Dose 100 MLS/HR; Start 12/13/16 at 14:00 Acetaminophen 650 mg 650 mg Q4H PRN NGT PAIN AND OR ELEVATED TEMP; Start at 08:30 Potassium Chloride (KCl 10 MEQ/50 ML SW) 50 ml @ 50 mls/hr ONCE ONCE IVPB ; Start 12/14/16 at 09:00; Stop 12/14/16 at 09:59 WERNER CHURCH December 14, 2016 09:28
[2016-12-14] MEDS: CASPOFUNGIN 50 MG in SOD CHLORIDE 0.9% 250 ML IVPB SCH (10:56)
--- NOTE | 2016-12-14 12:11 | PN ---
DATE: 12/14/2016 SUBJECTIVE: No events overnight. The patient continued to spike fevers with a T-max this morning of 101.5. He has been dialyzed 3 days in a row. He is currently in no distress. VITAL SIGNS: Temperature 100.3, pulse 86, respirations 15, blood pressure 112/ 50, saturation 100 on 60 FIO2. WBC 40, H and H 7.2 and 23.1, platelets 93, neutrophils 92.5. INDWELLINGS: Endotracheal tube, PEG, Cruz, left femoral Schuyler, right femoral triple lumen catheter and left upper extremity AV fistula. ANTIMICROBIALS: Patient is on: 1. IV Colistin. 2. IV Flagyl. 3. IV Cancidas. 4. Zyvox. 5. He is also getting erythromycin per G-tube as per gastroenterology recommendations. PHYSICAL EXAMINATION: GENERAL: This is a chronically ill-appearing, elderly man who is in no distress. The patient is nonverbal, noncommunicative. HEENT: Head atraumatic, normocephalic. Sclerae anicteric. Buccal mucosa dry. NECK: Supple, trachea midline. CHEST: Rise symmetrical. Breath sounds with bilateral rhonchi. HEART: S1, S2. ABDOMEN: Distended, no bowel tones auscultated.. EXTREMITIES: With edema and mottling and cyanosis with purplish discoloration of his toes and fingers. ASSESSMENT: 1. Severe sepsis with multisystem organ failure. 2. Large malignant invasive pelvic mass. 3. Bilateral hydroureteronephrosis secondary to above. 4. History of prostate and tongue cancer status post radiation and surgical intervention 5. Acute renal failure. 6. Multiple unstageable infected wound, status post multiple debridements in the past. 7. Diarrhea. 8. Gastroparesis. PLAN: The patient is doing poorly, hemodynamically unstable with increased white blood cell count. He is covered with broad spectrum antibiotics. We will also add Merrem to the regimen. Continue present care. The patient is FULL CODE. Dictated By: LUIS ARMANDO MIRANDA TROMMEL TENDER for MICHAEL RIVAS/CHELSI Conf#: [id number] DID#: [id number]
[2016-12-14] MEDS: MEROPENEM 500 MG/100 ML (PMX) 100 ML IVPB SCH ×2 (13:30→21:06)
[2016-12-14 13:49] LABS: MICROALBUMIN 12.4 mg/dL
--- NOTE | 2016-12-14 19:58 | CONS ---
Date/Time of Note Date/Time of Note DATE: 12/14/16 TIME: 19:56 Assessment/Plan Assessment/Plan Additional Assessment/Plan IMPRESSION: 1. Septic shock. Patient on 3 pressor support 2. Severe anemia. 3. Prerenal azotemia. 4. Prostate cancer. 5. Tongue cancer. 6. Parkinson's disease. 7. Dementia. 8. Respiratory failure. 9. Abnormal liver function tests. Patient has a multiple non-defined lesion in the liver 10. Atrial fibrillation. 11. Hydronephrosis. 12. Rectal bleeding probably from the tumor invading the rectum. 13. Gastroparesis 14 gangrene of the toes Plan Continue antibiotic Continue all the supportive care Continue vent support and nutrition. Will monitor WBC count and hematocrit closely. Patient prognosis remains poor. Will start patient on erythromycin Consultation Date/Type/Reason Admit Date/Time Dec 07, 2016 at 01:03 Initial Consult Date 12/07/16 Type of Consultation: Pulmonary/critical care 24 HR Interval Summary Subjective hx not possible: pt critical Exam/Review of Systems Vital Signs Vitals Vital Signs Date Time Temp Pulse Resp B/P Pulse Ox O2 Delivery O2 Flow Rate FiO2 12/14/16 19:00 74 15 117/59 100 Mechanical Ventilator 12/14/16 17:15 50 12/14/16 16:00 99.0 Intake and Output 12/13/16 12/13/16 12/14/16 15:00 23:00 07:00 Intake Total 1841.20 ml 1892.46 ml 1733.44 ml Output Total 210 ml 655 ml 410 ml Balance 1631.20 ml 1237.46 ml 1323.44 ml Exam Constitutional: frail Neck: non-tender, supple Respiratory: other (Patient is on vent) Cardiovascular: nl pulses, regular rate and rhythm Gastrointestinal: nl liver, spleen, non-tender, soft Extremities: other (There is gangrene of the toes of the feet) Results Result Diagram: 12/14/16 0415 12/14/16 0415 Results 24 hrs Laboratory Tests Test 12/14/16 04:15 12/14/16 06:38 White Blood Count 40.0 H Red Blood Count 2.44 L Hemoglobin 7.2 L Hematocrit 23.1 L Mean Corpuscular Volume 94.7 Mean Corpuscular Hemoglobin 29.5 Mean Corpuscular Hemoglobin Concent 31.2 L Red Cell Distribution Width 16.6 H Platelet Count 93 L Mean Platelet Volume 13.6 H Neutrophils % 92.5 H Lymphocytes % 1.5 L Monocytes % 2.9 Eosinophils % 0.0 Basophils % 0.3 Nucleated Red Blood Cells % 0.1 H Neutrophils # 37.0 H Lymphocytes # 0.6 L Monocytes # 1.2 H Eosinophils # 0.0 Basophils # 0.1 Nucleated Red Blood Cells # 0.0 Sodium Level 134 L Potassium Level 3.3 L Chloride Level 92 #L Carbon Dioxide Level 26 Anion Gap 19 H Blood Urea Nitrogen 69 #H Creatinine 1.56 H Glucose Level 88 # Calcium Level 6.6 L Phosphorus Level 5.8 #H Magnesium Level 1.9 Lab Scanned Report BLOOD TRANSFUSION Medications Medications Current Medications Ondansetron HCl (Zofran Inj) 4 mg Q6H PRN IV NAUSEA AND/OR VOMITING; Start at 02:00 Pantoprazole (Protonix Iv) 40 mg DAILY@06 IV Last administered on 12/14/16 05: 29; Admin Dose 40 MG; Start 12/07/16 at 06:00 Amiodarone HCl (Cordarone) 400 mg DAILY GTB Last administered on 12/14/16 08:19 ; Admin Dose 400 MG; Start 12/07/16 at 09:00 Collagenase (Santyl) 1 applic DAILY TOP Last administered on 12/14/16 08:20; Admin Dose 1 APPLIC; Start 12/07/16 at 09:30 Collagenase 1 applic 1 applic PRN PRN TOP WOUND USE Last administered on 21:08; Admin Dose 1 APPLIC; Start 12/07/16 at 08:30 Fentanyl 100 ml @ 2.5 mls/hr TITRATE IV Last administered on 12/12/16 23:06; Admin Dose 2.5 MLS/HR; Start 12/07/16 at 14:00 Midazolam HCl (Versed) 50 ml @ 1 mls/hr TITRATE IV Last administered on 06:42; Admin Dose 1 MLS/HR; Start 12/07/16 at 14:00 Sodium Hypochlorite 1 applic 1 applic BID IRR Last administered on 12/14/16 08: 19; Admin Dose 1 APPLIC; Start 12/09/16 at 21:00 Erythromycin Lactobionate 250 mg/Sodium Chloride 100 ml @ 100 mls/hr Q6 IVPB Last administered on 12/14/16 17:45; Admin Dose 100 MLS/HR; Start 12/11/16 at 18 :00 Linezolid 300 ml @ 300 mls/hr Q12 IVPB Last administered on 12/14/16 08:05; Admin Dose 300 MLS/HR; Start 12/11/16 at 21:00 Norepinephrine 32 mg/Sodium Chloride 250 ml @ 0.46 mls/hr TITRATE IV Last administered on 12/14/16 05:17; Admin Dose 14.06 MLS/HR; Start 12/12/16 at 08:27 Phenylephrine HCl 160 mg/Sodium Chloride 500 ml @ 18.75 mls/ hr TITRATE IV Last administered on 12/14/16 17:45; Admin Dose 18.75 MLS/HR; Start 12/12/16 at 08:29 Vasopressin 60 unit/Sodium Chloride 60 ml @ 1.2 mls/hr Q12H IV Last administered on 12/14/16 05:18; Admin Dose 2.4 MLS/HR; Start 12/12/16 at 09:00 Caspofungin 50 mg/ Sodium Chloride 250 ml @ 250 mls/hr Q24H IVPB Last administered on 12/14/16 10:56; Admin Dose 250 MLS/HR; Start 12/13/16 at 11:00 Colistimethate Sodium 75 mg/ Sodium Chloride 100 ml @ 200 mls/hr Q36H IVPB Last administered on 12/13/16 22:01; Admin Dose 200 MLS/HR; Start 12/13/16 at 21: 00 Dextrose/Sodium Chloride (D5-NS) 1,000 ml @ 50 mls/hr Q20H IV Last administered on 12/14/16 03:23; Admin Dose 50 MLS/HR; Start 12/13/16 at 06:00 Miscellaneous Information 1 ea NOTE XX ; Start 12/13/16 at 06:30 Glucose (Glutose) 15 gm Q15M PRN PO DECREASED GLUCOSE; Start 12/13/16 at 06:30 Glucose (Glutose) 22.5 gm Q15M PRN PO DECREASED GLUCOSE; Start 12/13/16 at 06:30 Dextrose (D50w Syringe) 25 ml Q15M PRN IV DECREASED GLUCOSE; Start 12/13/16 at 06:30 Dextrose (D50w Syringe) 50 ml Q15M PRN IV DECREASED GLUCOSE Last administered on 12/13/16 06:11; Admin Dose 50 ML; Start 12/13/16 at 06:30 Glucagon (Glucagen) 1 mg Q15M PRN IM DECREASED GLUCOSE; Start 12/13/16 at 06:30 Glucose 15 gm 15 gm Q15M PRN BUCCAL DECREASED GLUCOSE; Start 12/13/16 at 06:30 Dopamine HCl 800 mg/Dextrose 250 ml @ 1.89 mls/hr TITRATE IV Last administered on 12/14/16 07:28; Admin Dose 18.97 MLS/HR; Start 12/13/16 at 09:30 Metronidazole (Flagyl 500 Mg (Pmx)) 100 ml @ 100 mls/hr Q8 IVPB Last administered on 12/14/16 14:03; Admin Dose 100 MLS/HR; Start 12/13/16 at 14:00 Acetaminophen 650 mg 650 mg Q4H PRN NGT PAIN AND OR ELEVATED TEMP Last administered on 12/14/16 18:08; Admin Dose 650 MG; Start 12/14/16 at 08:30 Meropenem (Merrem 500 Mg/ 100 ml (Pmx)) 100 ml @ 200 mls/hr Q12 IVPB Last administered on 12/14/16 13:30; Admin Dose 200 MLS/HR; Start 12/14/16 at 13:00 CHELE CASE MD December 14, 2016 19:58
[2016-12-15] VITALS (99 sets, daily range): BP systolic 63–155; BP diastolic 36–77; PULSE 69–111; RESP 13–30
[2016-12-15] MEDS: ERYTHROMYCIN LACTOBIONATE 250 MG in SOD CHLORIDE 0.9% 100 ML IVPB SCH ×4 (00:10→18:02)
[2016-12-15] MEDS: NORepinephrine 32 MG in SOD CHLORIDE 0.9% 218 ML IV SCH ×2 (00:26→19:16)
[2016-12-15] MEDS: VASOPRESSIN 60 UNIT in SOD CHLORIDE 0.9% 57 ML IV SCH ×2 (00:27→16:02)
[2016-12-15] MEDS: ALBUTEROL 18 GM INHALER INH SCH ×6 (01:27→21:15)
[2016-12-15] MEDS: DEXTROSE 5%-0.9% NACL 1,000 ML IV SCH (02:37)
[2016-12-15] MEDS: PHENYLephrine 160 MG in SOD CHLORIDE 0.9% 484 ML IV SCH ×3 (02:42→22:14)
[2016-12-15] MEDS: PANTOPRAZOLE 40 MG INJ IV SCH (05:07)
[2016-12-15] MEDS: metroNIDAZOLE 500 MG/NS (PMX) 100 ML IVPB SCH ×3 (05:08→22:28)
[2016-12-15 06:13] LABS: ADD SCAN DIFF NO
[2016-12-15 06:25] LABS: ABNORMAL IP MESSAGE 1; BASOPHIL # 0.1 10^3/ul (0.0-0.1); BASOPHILS % 0.2 % (0.0-2.0); HEMATOCRIT 31.3 % (42.0-52.0); HEMOGLOBIN 9.6 g/dl (14.0-18.0); LYMPHOCYTES # 0.6 10^3/ul (0.8-2.9); LYMPHOCYTES % 2.1 % (15.0-51.0); MEAN CORPUSCULAR HEMOGLOBIN 29.4 pg (29.0-33.0); MEAN CORPUSCULAR HGB CONC 30.7 g/dl (32.0-37.0); MEAN CORPUSCULAR VOLUME 95.7 fl (82.0-101.0); MEAN PLATELET VOLUME 13.8 fl (7.4-10.4); MONOCYTE # 0.6 10^3/ul (0.3-0.9); MONOCYTES % 2.3 % (0.0-11.0); NEUTROPHIL # 25.8 10^3/ul (1.6-7.5); NEUTROPHILS % 92.3 % (39.0-77.0); PLATELET COUNT 68 10^3/UL (140-415); RED BLOOD COUNT 3.27 10^6/ul (4.70-6.10); RED CELL DISTRIBUTION WIDTH 17.7 % (11.5-14.5)
[2016-12-15 06:54] LABS: POTASSIUM 3.4 mmol/L (3.5-5.1)
[2016-12-15 06:55] LABS: MAGNESIUM 1.8 mg/dl (1.7-2.5)
[2016-12-15 06:56] LABS: CREATININE 1.22 mg/dl (0.61-1.24)
[2016-12-15 06:57] LABS: CALCIUM 7.6 mg/dl (8.4-10.2)
[2016-12-15] MEDS ORDERED: POTASSIUM CHLORIDE 250 ML IVPB ONE (07:30)
[2016-12-15] MEDS: COLISTIMETHATE 75 MG in SOD CHLORIDE 0.9% 100 ML IVPB SCH (08:22)
--- NOTE | 2016-12-15 08:22 | PN ---
DATE: 12/15/2016 SUBJECTIVE: The patient remains critically ill, on pressor support, currently being weaned off one pressor. The patient had hemodialysis yesterday and tolerated it well. No other acute events noted . No hemoptysis, hematemesis or hematochezia. OBJECTIVE: VITAL SIGNS: Blood pressure is 149/77, respirations 18, pulse 82, temperature 98.6. I's AND O'S: The patient had 5.8 liters in, and 1.4 liters out, 800 mL removed with dialysis. GENE RAL: The patient is critically ill. HEENT: Head is normocephalic. Pupils are reactive to light. NECK: Supple. HEART: Regular rate. LUNGS: Showed diminished breath sounds at the base. ABDOMEN: Soft, nontender to palpation. No rebound or guarding. EXTREMITIES: Negative for clubbing or cyanosis. Positive edema. DERMATOLOGIC: No rashes. MUSCULOSKELETAL: Positive decubitus wound. NEUROLOGIC: No change in exam. MEDICATIONS: The patient's medications have been reviewed. LABORATORY DATA: Shows sodium 138, potassium 3.4, chloride 100, creatinine 1.22, phosphorus 5.0, ca lcium is pending. White count 28.0, hemoglobin 9.6, hematocrit 31.3, platelet count is 68. Chest x-ray on 12/13/2016 shows pleural effusions, unchanged. ASSESSMENT AND PLAN: 1. Septic shock. Etiology is multifactorial secondary to healthcare-associated pneumonia, decubitu s wound and possible UTI. The patient remains critically ill, maxed out on 2 pressors, but able to be weaned off 1 pressor. At this point will continue the current treatment plan, continue antibioti c therapy, continue pressor support, wean off if possible, continue hydration, and monitor closely. 2. Ventilator dependent respiratory failure. Vent settings have been reviewed. ABG was reviewed. Continue to monitor. 3. Oliguric acute kidney injury on top of chronic kidney disease. Etiology is secondary to acute t ubular necrosis due to septic shock. The patient was initiated on hemodialysis 2 days ago for solut e clearance. The patient has had 2 sessions of dialysis. Will continue. Anticipate dialysis today . 4. Mixed acid base disorder. The patient's ABG was reviewed. The patient has metabolic acidosis a nd metabolic alkalosis. Will continue to monitor. 5. Hyponatremia secondary to acute kidney injury. Improving with hemodialysis. Will continue dial ysis with a 140 sodium bath. 6. Hypokalemia. Will replete potassium chloride. 7. Mineral bone disorder. Continue to monitor calcium and phosphorus levels. Continue dialysis on a 2.5 calcium bath. 8. Acute encephalopathy. Etiology is toxic metabolic 9. Anemia. The patient is status post blood transfusion. Continue to monitor H and H levels. 10. Thrombocytopenia. Etiology is likely due to underlying sepsis and questionable DIC. Will plac e a hematology consult for evaluation. 11. Atrial fibrillation. Continue the current medical management. 12. Bilateral hydronephroses secondary to pelvic mass. Continue to monitor. Follow up with Dr. Skylar benavides. 13. Leukocytosis secondary to sepsis. Continue to monitor. 14. Lower extremity wounds. Continue wound care. 15. Ischemic gangrenous toes. The patient was seen by vascular surgery. Will continue to monitor. 16. Gastrointestinal and deep venous thrombosis prophylaxis. Continue PPI and sequential leg squee zers. 17. Nutrition. The patient is unable to tolerate tube feeds. Will discuss with GI to consider the possibility of TPN or to retry another course of tube feeding. 18. Gastrointestinal and deep vein thrombosis prophylaxis. Continue PPIs and sequential leg squeez ers. Please note, I spent over 40 minutes of critical care time with this patient. Dictated By: JAX ANDRADE/CHELSI Conf#: [id number] DID#: [id number]
[2016-12-15] MEDS: LINEZOLID 600 MG/D5W (PMX) 300 ML IVPB SCH ×2 (08:23→22:26)
[2016-12-15] MEDS: AMIODARONE 200 MG TAB GTB SCH (08:24)
[2016-12-15] MEDS: COLLAGENASE 30 GM TUBE TOP SCH (09:00)
--- NOTE | 2016-12-15 09:56 | CONS ---
Date/Time of Note Date/Time of Note DATE: 12/15/16 TIME: 09:53 Assessment/Plan Assessment/Plan Additional Assessment/Plan Ventilator settings; AC of 14, tidal volume 500, PEEP of 0, 40% FiO2. The patient currently on phenylephrine drip at 20 mics per minute, Levophed 30 mics per minute. Next Assessment recommendations; 1. Patient admitted with respiratory failure due to severe sepsis from multiple sacral decubitus ulcers. 2. Renal failure, now requiring hemodialysis. 3. History of right hydronephrosis. 5. Metastatic glossal cancer. 6. Thrombo-cytopenia. 7. Anemia. 8. Advanced Parkinson's disease. 9. Advanced dementia. 10. Developing gangrene involving all 4 extremities. Continue current supportive care. Patient will be dialyzed again today. Prognosis remains dismal. Consultation Date/Type/Reason Admit Date/Time Dec 07, 2016 at 01:03 Initial Consult Date 12/07/16 Type of Consultation: Pulmonary/critical care 24 HR Interval Summary Free Text/Dictation Patient condition remains critical. Remains unresponsive. Still requiring high -dose pressor support for blood pressure maintenance. General exam; elderly male, on ventilator, orally intubated, currently in no distress. Exam/Review of Systems Vital Signs Vitals Vital Signs Date Time Temp Pulse Resp B/P Pulse Ox O2 Delivery O2 Flow Rate FiO2 12/15/16 08:55 77 20 100 40 12/15/16 08:00 Bag Valve Mask 12/15/16 06:30 149/77 12/15/16 04:00 98.4 Intake and Output 12/14/16 12/14/16 12/15/16 15:00 23:00 07:00 Intake Total 3043.44 ml 1511.50 ml 1157.85 ml Output Total 1145 ml 380 ml 370 ml Balance 1898.44 ml 1131.50 ml 787.85 ml Exam HEENT exam; supple neck, no JVD. No lymphadenopathy. Midline trachea. Patient has minimal bilateral corneal opacities. There is a well-healed tracheostomy scar. Orally intubated. Patient has fair dentition. Neck Chest examination; diminished but clear vessel. S1-S2 audible, irregular rhythm. Abdomen examination; soft, G-tube in place. Nondistended. No organomegaly. Back examination; dressing applied over sacrum. Extremity exam; decreased anasarca. Patient does have gangrene now developing involving toes as well as fingers bilaterally. SLIDE DEVELOPER examination; patient remains unresponsive. Results Result Diagram: 12/15/16 0545 12/15/16 0545 Results 24 hrs Laboratory Tests Test 12/15/16 05:21 12/15/16 05:45 12/15/16 07:15 Lab Scanned Report BLOOD TRANSFUSION White Blood Count 28.0 #H Red Blood Count 3.27 #L Hemoglobin 9.6 #L Hematocrit 31.3 #L Mean Corpuscular Volume 95.7 Mean Corpuscular Hemoglobin 29.4 Mean Corpuscular Hemoglobin Concent 30.7 L Red Cell Distribution Width 17.7 H Platelet Count 68 #L Mean Platelet Volume 13.8 H Neutrophils % 92.3 H Lymphocytes % 2.1 L Monocytes % 2.3 Eosinophils % 0.0 Basophils % 0.2 Nucleated Red Blood Cells % 0.0 Neutrophils # 25.8 H Lymphocytes # 0.6 L Monocytes # 0.6 Eosinophils # 0.0 Basophils # 0.1 Nucleated Red Blood Cells # 0.0 Sodium Level 138 Potassium Level 3.4 L Chloride Level 100 Carbon Dioxide Level 22 Anion Gap 19 H Blood Urea Nitrogen 50 H Creatinine 1.22 Glucose Level 78 Calcium Level 7.6 L Phosphorus Level 5.0 H Magnesium Level 1.8 Lactic Acid Level 7.9 *H Medications Medications Current Medications Ondansetron HCl (Zofran Inj) 4 mg Q6H PRN IV NAUSEA AND/OR VOMITING; Start at 02:00 Pantoprazole (Protonix Iv) 40 mg DAILY@06 IV Last administered on 12/15/16 05: 07; Admin Dose 40 MG; Start 12/07/16 at 06:00 Amiodarone HCl (Cordarone) 400 mg DAILY GTB Last administered on 12/15/16 08:24 ; Admin Dose 400 MG; Start 12/07/16 at 09:00 Collagenase (Santyl) 1 applic DAILY TOP Last administered on 12/14/16 08:20; Admin Dose 1 APPLIC; Start 12/07/16 at 09:30 Collagenase 1 applic 1 applic PRN PRN TOP WOUND USE Last administered on 21:08; Admin Dose 1 APPLIC; Start 12/07/16 at 08:30 Fentanyl 100 ml @ 2.5 mls/hr TITRATE IV Last administered on 12/12/16 23:06; Admin Dose 2.5 MLS/HR; Start 12/07/16 at 14:00 Midazolam HCl (Versed) 50 ml @ 1 mls/hr TITRATE IV Last administered on 06:42; Admin Dose 1 MLS/HR; Start 12/07/16 at 14:00 Sodium Hypochlorite 1 applic 1 applic BID IRR Last administered on 12/14/16 21: 51; Admin Dose 1 APPLIC; Start 12/09/16 at 21:00 Erythromycin Lactobionate 250 mg/Sodium Chloride 100 ml @ 100 mls/hr Q6 IVPB Last administered on 12/15/16 05:07; Admin Dose 100 MLS/HR; Start 12/11/16 at 18 :00 Linezolid 300 ml @ 300 mls/hr Q12 IVPB Last administered on 12/15/16 08:23; Admin Dose 300 MLS/HR; Start 12/11/16 at 21:00 Norepinephrine 32 mg/Sodium Chloride 250 ml @ 0.46 mls/hr TITRATE IV Last administered on 12/15/16 00:26; Admin Dose 14.06 MLS/HR; Start 12/12/16 at 08:27 Phenylephrine HCl 160 mg/Sodium Chloride 500 ml @ 18.75 mls/ hr TITRATE IV Last administered on 12/15/16 02:42; Admin Dose 56.25 MLS/HR; Start 12/12/16 at 08:29 Vasopressin 60 unit/Sodium Chloride 60 ml @ 1.2 mls/hr Q12H IV Last administered on 12/15/16 00:27; Admin Dose 1.2 MLS/HR; Start 12/12/16 at 09:00 Caspofungin 50 mg/ Sodium Chloride 250 ml @ 250 mls/hr Q24H IVPB Last administered on 12/14/16 10:56; Admin Dose 250 MLS/HR; Start 12/13/16 at 11:00 Colistimethate Sodium 75 mg/ Sodium Chloride 100 ml @ 200 mls/hr Q36H IVPB Last administered on 12/15/16 08:22; Admin Dose 200 MLS/HR; Start 12/13/16 at 21: 00 Dextrose/Sodium Chloride (D5-NS) 1,000 ml @ 50 mls/hr Q20H IV Last administered on 12/15/16 02:37; Admin Dose 50 MLS/HR; Start 12/13/16 at 06:00 Miscellaneous Information 1 ea NOTE XX ; Start 12/13/16 at 06:30 Glucose (Glutose) 15 gm Q15M PRN PO DECREASED GLUCOSE; Start 12/13/16 at 06:30 Glucose (Glutose) 22.5 gm Q15M PRN PO DECREASED GLUCOSE; Start 12/13/16 at 06:30 Dextrose (D50w Syringe) 25 ml Q15M PRN IV DECREASED GLUCOSE; Start 12/13/16 at 06:30 Dextrose (D50w Syringe) 50 ml Q15M PRN IV DECREASED GLUCOSE Last administered on 12/13/16 06:11; Admin Dose 50 ML; Start 12/13/16 at 06:30 Glucagon (Glucagen) 1 mg Q15M PRN IM DECREASED GLUCOSE; Start 12/13/16 at 06:30 Glucose 15 gm 15 gm Q15M PRN BUCCAL DECREASED GLUCOSE; Start 12/13/16 at 06:30 Dopamine HCl 800 mg/Dextrose 250 ml @ 1.89 mls/hr TITRATE IV Last administered on 12/14/16 07:28; Admin Dose 18.97 MLS/HR; Start 12/13/16 at 09:30 Metronidazole (Flagyl 500 Mg (Pmx)) 100 ml @ 100 mls/hr Q8 IVPB Last administered on 12/15/16 05:08; Admin Dose 100 MLS/HR; Start 12/13/16 at 14:00 Acetaminophen 650 mg 650 mg Q4H PRN NGT PAIN AND OR ELEVATED TEMP Last administered on 12/14/16 18:08; Admin Dose 650 MG; Start 12/14/16 at 08:30 Meropenem 100 ml @ 200 mls/hr Q12 IVPB Last administered on 12/14/16 21:06; Admin Dose 200 MLS/HR; Start 12/14/16 at 13:00 Potassium Chloride (KCl 40 MEQ/250 ML NS) 250 ml @ 62.5 mls/hr ONCE ONCE IVPB Last administered on 12/15/16 09:35; Admin Dose 62.5 MLS/HR; Start 12/15/16 at 07:30; Stop 12/15/16 at 11:29 WERNER CHURCH December 15, 2016 09:56
[2016-12-15] MEDS: MEROPENEM 500 MG/100 ML (PMX) 100 ML IVPB SCH ×2 (10:20→21:24)
[2016-12-15] MEDS: SODIUM HYPOCHLORITE 0.125% 473 ML BTL IRR SCH ×2 (10:21→22:28)
[2016-12-15] MEDS: FENTAnyl (DRIP) 1000 mcg/100mL 100 ML IV SCH (11:18)
[2016-12-15] MEDS: CASPOFUNGIN 50 MG in SOD CHLORIDE 0.9% 250 ML IVPB SCH (11:19)
--- NOTE | 2016-12-15 12:06 | PN ---
DATE: 12/15/2016 INFECTIOUS DISEASE PROGRESS NOTE SUBJECTIVE: No events overnight. Patient is on Levophed and Ludwin-Synephrine, off vasopressin. Hear t rate controlled. No fevers. Temperature 97.5, pulse 84, respirations 18, blood pressure 98/51, s aturations 100 on the vent. WBC 28, H and H 9.6 and 31.3, platelets 68, neutrophils 92.3. BUN 50, creatinine 1.22. MICROBIOLOGY: Endotracheal aspirate on 12/14/2016 grew Pseudomonas aeruginosa. Blood and urine cul ture have been negative. INDWELLINGS: Endotracheal tube, PEG, suprapubic catheter. PICC line placed on 12/12/2016. Birgit Payan. ANTIMICROBIALS: 1. Colistin. 2. Meropenem. 3. Flagyl. 4. Cancidas. 5. Zyvox. 6. The patient is also getting erythromycin. PHYSICAL EXAMINATION: GENERAL: This is a chronically ill-appearing, elderly man, who is nonverbal, noncommunicative, in n o distress. HEENT: Head atraumatic, normocephalic. Sclerae are anicteric. Buccal mucosa dry. NECK: Supple, trachea midline. CHEST: Chest rise is symmetrical. Breath sounds with scattered rhonchi. HEART: S1, S2. ABDOMEN: Distended. Bowel tones hypoactive. EXTREMITIES: Cyanotic, with bilateral edema. ASSESSMENT: 1. Septic shock with multisystem organ failure. 2. Healthcare-acquired pneumonia. 3. Multiple infected wounds, status post debridement. 4. Acute on chronic kidney disease, hemodialysis dependent. 5. Large invasive malignant pelvic mass. 6. Bilateral hydroureteronephrosis. 7. Bilateral extremity gangrene. 8. History of prostate and tongue cancer, status post surgical intervention and radiation. 9. Anemia with thrombocytopenia. PLAN: The patient remains hemodynamically unstable, covered with broad-spectrum antibiotics. Graciela nue the present care. Prognosis is poor. Dictated By: ULIS ARMANDO MIRANDA PERSONAL DEVELOPMENT MENTOR for MICHAEL RIVAS/NTS Conf#: [id number] DID#: [id number]
[2016-12-15] MEDS: ARTIFICIAL TEARS 15 ML OPH BOTH EYES SCH ×3 (12:49→21:26)
[2016-12-15] MEDS: OCULAR LUBRICANT 3.5 GM OPH OINT BOTH EYES SCH ×3 (12:50→21:27)
[2016-12-15 15:38] LABS: PLATELET COUNT 72 10^3/UL (140-415)
[2016-12-15 15:42] LABS: INR 1.97; PARTIAL THROMBOPLASTIN TIME 41.6 Sec (25.0-35.0); PROTIME 22.6 Sec (12.2-14.2); PT RATIO 1.8
[2016-12-15 15:43] LABS: THROMBIN TIME 17.6 SEC (13.8-19.1)
[2016-12-15 16:03] LABS: D-DIMER > 10000.00 ng/ml (<460)
[2016-12-15 17:18] LABS: FIBRIN SPLIT PRODUCT >10 and <40 ug/ml (<10)
--- NOTE | 2016-12-15 19:40 | CONS ---
Date/Time of Note Date/Time of Note DATE: 12/15/16 TIME: 19:39 Assessment/Plan Assessment/Plan Additional Assessment/Plan IMPRESSION: 1. Septic shock. Patient on 3 pressor support 2. Severe anemia. 3. Prerenal azotemia. 4. Prostate cancer. 5. Tongue cancer. 6. Parkinson's disease. 7. Dementia. 8. Respiratory failure. 9. Abnormal liver function tests. Patient has a multiple non-defined lesion in the liver 10. Atrial fibrillation. 11. Hydronephrosis. 12. Rectal bleeding probably from the tumor invading the rectum. 13. Gastroparesis 14 gangrene of the toes Plan Continue antibiotic Continue all the supportive care Continue vent support and nutrition. Will monitor WBC count and hematocrit closely. Patient prognosis remains poor. patient on erythromycin resume feeding Consultation Date/Type/Reason Admit Date/Time Dec 07, 2016 at 01:03 Initial Consult Date 12/07/16 Type of Consultation: Pulmonary/critical care 24 HR Interval Summary Subjective hx not possible: pt critical Exam/Review of Systems Vital Signs Vitals Vital Signs Date Time Temp Pulse Resp B/P Pulse Ox O2 Delivery O2 Flow Rate FiO2 12/15/16 18:15 84 19 104/62 100 12/15/16 18:00 Mechanical Ventilator 12/15/16 17:57 40 12/15/16 16:00 97.5 Intake and Output 12/14/16 12/14/16 12/15/16 15:00 23:00 07:00 Intake Total 3043.44 ml 1511.50 ml 1264.41 ml Output Total 1145 ml 380 ml 385 ml Balance 1898.44 ml 1131.50 ml 879.41 ml Exam Constitutional: alert, oriented, well developed Psych: nl mood/affect, no complaints Head: atraumatic, normocephalic Eyes: EOMI, PERRL, nl conjunctiva, nl lids, nl sclera ENMT: nl external ears & nose, nl lips & teeth, nl nasal mucosa & septum Neck: non-tender, supple Respiratory: clear to auscultation, normal air movement Cardiovascular: nl pulses, regular rate and rhythm Gastrointestinal: nl liver, spleen, non-tender, soft Musculoskeletal: nl extremities to inspection, nl gait and stance Extremities: normal pulses Neurological: COMMERCIAL SALES CONSULTANT II-XII intact, nl mental status, nl speech, nl strength Skin: nl turgor, No rash or lesions Lymph: nl lymph nodes Results Result Diagram: 12/15/16 1450 12/15/16 0545 Results 24 hrs Laboratory Tests Test 12/15/16 05:21 12/15/16 05:45 12/15/16 07:15 12/15/16 14:50 Lab Scanned Report BLOOD TRANSFUSION White Blood Count 28.0 #H Red Blood Count 3.27 #L Hemoglobin 9.6 #L Hematocrit 31.3 #L Mean Corpuscular Volume 95.7 Mean Corpuscular Hemoglobin 29.4 Mean Corpuscular Hemoglobin Concent 30.7 L Red Cell Distribution Width 17.7 H Platelet Count 68 #L 72 L Mean Platelet Volume 13.8 H Neutrophils % 92.3 H Lymphocytes % 2.1 L Monocytes % 2.3 Eosinophils % 0.0 Basophils % 0.2 Nucleated Red Blood Cells % 0.0 Neutrophils # 25.8 H Lymphocytes # 0.6 L Monocytes # 0.6 Eosinophils # 0.0 Basophils # 0.1 Nucleated Red Blood Cells # 0.0 Sodium Level 138 Potassium Level 3.4 L Chloride Level 100 Carbon Dioxide Level 22 Anion Gap 19 H Blood Urea Nitrogen 50 H Creatinine 1.22 Glucose Level 78 Calcium Level 7.6 L Phosphorus Level 5.0 H Magnesium Level 1.8 Lactic Acid Level 7.9 *H Prothrombin Time 22.6 #H Prothrombin Time Ratio 1.8 INR International Normalized Ratio 1.97 Activated Partial Thromboplast Time 41.6 H Thrombin Time 17.6 Fibrinogen 401.0 Plasma Fibrin Degradation Products >10 and <40 H D-Dimer > 01945.00 H Lactate Dehydrogenase 699 H Medications Medications Current Medications Ondansetron HCl (Zofran Inj) 4 mg Q6H PRN IV NAUSEA AND/OR VOMITING; Start at 02:00 Pantoprazole (Protonix Iv) 40 mg DAILY@06 IV Last administered on 12/15/16 05: 07; Admin Dose 40 MG; Start 12/07/16 at 06:00 Amiodarone HCl (Cordarone) 400 mg DAILY GTB Last administered on 12/15/16 08:24 ; Admin Dose 400 MG; Start 12/07/16 at 09:00 Collagenase (Santyl) 1 applic DAILY TOP Last administered on 12/14/16 08:20; Admin Dose 1 APPLIC; Start 12/07/16 at 09:30 Collagenase 1 applic 1 applic PRN PRN TOP WOUND USE Last administered on 21:08; Admin Dose 1 APPLIC; Start 12/07/16 at 08:30 Fentanyl (Sublimaze) 100 ml @ 2.5 mls/hr TITRATE IV Last administered on 11:18; Admin Dose 2.5 MLS/HR; Start 12/07/16 at 14:00 Sodium Hypochlorite 1 applic 1 applic BID IRR Last administered on 12/15/16 10: 21; Admin Dose 1 APPLIC; Start 12/09/16 at 21:00 Erythromycin Lactobionate 250 mg/Sodium Chloride 100 ml @ 100 mls/hr Q6 IVPB Last administered on 12/15/16 18:02; Admin Dose 100 MLS/HR; Start 12/11/16 at 18 :00 Linezolid 300 ml @ 300 mls/hr Q12 IVPB Last administered on 12/15/16 08:23; Admin Dose 300 MLS/HR; Start 12/11/16 at 21:00 Norepinephrine 32 mg/Sodium Chloride 250 ml @ 0.46 mls/hr TITRATE IV Last administered on 12/15/16 19:16; Admin Dose 14.06 MLS/HR; Start 12/12/16 at 08:27 Phenylephrine HCl 160 mg/Sodium Chloride 500 ml @ 18.75 mls/ hr TITRATE IV Last administered on 12/15/16 12:47; Admin Dose 52.5 MLS/HR; Start 12/12/16 at 08 :29 Vasopressin 60 unit/Sodium Chloride 60 ml @ 1.2 mls/hr Q12H IV Last administered on 12/15/16 16:02; Admin Dose 1.2 MLS/HR; Start 12/12/16 at 09:00 Caspofungin 50 mg/ Sodium Chloride 250 ml @ 250 mls/hr Q24H IVPB Last administered on 12/15/16 11:19; Admin Dose 250 MLS/HR; Start 12/13/16 at 11:00 Dextrose/Sodium Chloride (D5-NS) 1,000 ml @ 50 mls/hr Q20H IV Last administered on 12/15/16 02:37; Admin Dose 50 MLS/HR; Start 12/13/16 at 06:00 Miscellaneous Information 1 ea NOTE XX ; Start 12/13/16 at 06:30 Glucose (Glutose) 15 gm Q15M PRN PO DECREASED GLUCOSE; Start 12/13/16 at 06:30 Glucose (Glutose) 22.5 gm Q15M PRN PO DECREASED GLUCOSE; Start 12/13/16 at 06:30 Dextrose (D50w Syringe) 25 ml Q15M PRN IV DECREASED GLUCOSE; Start 12/13/16 at 06:30 Dextrose (D50w Syringe) 50 ml Q15M PRN IV DECREASED GLUCOSE Last administered on 12/13/16 06:11; Admin Dose 50 ML; Start 12/13/16 at 06:30 Glucagon (Glucagen) 1 mg Q15M PRN IM DECREASED GLUCOSE; Start 12/13/16 at 06:30 Glucose 15 gm 15 gm Q15M PRN BUCCAL DECREASED GLUCOSE; Start 12/13/16 at 06:30 Dopamine HCl 800 mg/Dextrose 250 ml @ 1.89 mls/hr TITRATE IV Last administered on 12/14/16 07:28; Admin Dose 18.97 MLS/HR; Start 12/13/16 at 09:30 Metronidazole (Flagyl 500 Mg (Pmx)) 100 ml @ 100 mls/hr Q8 IVPB Last administered on 12/15/16 14:55; Admin Dose 100 MLS/HR; Start 12/13/16 at 14:00 Acetaminophen 650 mg 650 mg Q4H PRN NGT PAIN AND OR ELEVATED TEMP Last administered on 12/14/16 18:08; Admin Dose 650 MG; Start 12/14/16 at 08:30 Meropenem 100 ml @ 200 mls/hr Q12 IVPB Last administered on 12/15/16 10:20; Admin Dose 200 MLS/HR; Start 12/14/16 at 13:00 Colistimethate Sodium/Sodium Chloride (Coly-Mycin/NS) 100 ml @ 200 mls/hr Q24H IVPB ; Start 12/16/16 at 09:00 Eye Lubricant (Akwa Oint) 1 applic Q4 BOTH EYES Last administered on 12/15/16 18:01; Admin Dose 1 APPLIC; Start 12/15/16 at 13:00 Eye Lubricant (Artificial Tears Oph) 2 drop Q4 BOTH EYES Last administered on 18:01; Admin Dose 2 DROP; Start 12/15/16 at 13:00 CHELE CASE MD December 15, 2016 19:40
--- NOTE | 2016-12-15 22:46 | CONS ---
Date/Time of Note Date/Time of Note DATE: 12/15/16 TIME: 22:27 Assessment/Plan Assessment/Plan Chief Complaint/Hosp Course THROMBOCYTOPENIA IN PT WITH SEPTIC SHOCK , EXPOSED TO MULTIPLE MEDS , INCLUDING HEPARIN, VANCO, IMIPENEM, PROTONIX AND OTHER CHECK DIC, LDH, HIPA CHECK SMEAR MONITOR PLATELET COUNT CLOSELY TRANSFUSE PLATELET IF COUNT LESS THAN 29913 OR IF PT IS BLEEDING NO INDICATIONS FOR TRANSFUSION TODAY Severe anemia. POST 3 U PRBC PROCEED WITH LIMITED W-UP Septic shock. Patient on 3 pressor support Prerenal azotemia. Prostate cancer. Tongue cancer. Parkinson's disease. Dementia. Respiratory failure. Abnormal liver function tests. Patient has a multiple non-defined lesion in the liver Atrial fibrillation. Hydronephrosis. Rectal bleeding probably from the tumor invading the rectum. Gastroparesis Bilateral lower extremity atherosclerosis with gangrene Problems: Consultation Date/Type/Reason Admit Date/Time Dec 07, 2016 at 01:03 Date of Consultation: December 15, 2016 Type of Consultation: HEMEONC Reason for Consultation THROMBOCYTOPENIA Referring Provider: JAX SLATER of Present Illness Mr. Vera is a 76-year-old gentleman with a plethora of medical conditions who is in the intensive care unit intubated and sedated and nonresponsive. The patient was transferred from [place] secondary to shock tachycardia and atrial fibrillation and respiratory failure. HIS MEDICAL W-UP AND TREATMENT ARE IN PROGRESS HE WA NOTED TO HAVE PROGRESSIVE THROMBOCYTOPENIA AND I WAS ASKED TO PROVIDE HEMEON CONSULT REVIEW OF SYSTEMS: A 12-point review unable to ascertain as the patient is intubated and sedated. PAST MEDICAL HISTORY: Entails Parkinson disease, dysphagia status post PEG placement, tongue cancer status post resection, history of multiple falls with subdural hematoma on the right side, history of meningioma, prostate cancer status post TURP, history of paroxysmal atrial fibrillation, chronic respiratory failure, severe encephalopathy, COPD, right hydronephrosis, prior history of tracheostomy, failure to thrive, acute kidney injury/acute tubular necrosis and history of gastrointestinal bleed, neurogenic bladder, diastolic heart failure. FAMILY HISTORY: Noncontributory. SOCIAL HISTORY: No history of alcohol, tobacco or illicit drug use was identified in his medical chart. ALLERGIES 1. PENICILLIN. 2. CODEINE. 3. HYDROCODONE. 4. MORPHINE. Psychological: nl mood/affect, no complaints Exam/Review of Systems Vital Signs Vitals Vital Signs Date Time Temp Pulse Resp B/P Pulse Ox O2 Delivery O2 Flow Rate FiO2 12/15/16 22:00 75 12/15/16 21:30 17 99/59 100 12/15/16 21:00 Mechanical Ventilator 12/15/16 20:00 98.0 12/15/16 17:57 40 Intake and Output 12/14/16 12/14/16 12/15/16 15:00 23:00 07:00 Intake Total 3043.44 ml 1511.50 ml 1264.41 ml Output Total 1145 ml 380 ml 385 ml Balance 1898.44 ml 1131.50 ml 879.41 ml Exam PHYSICAL EXAMINATION: GENERAL: Patient is intubated and sedated, nonresponsive. HEENT: Temporal wasting. Mucosa moist, necrotic tongue. NECK: Supple. No carotid bruit. ET tube intact. CARDIOVASCULAR: S1, S2 present. Irregularly irregular. PULMONARY: Coarse breath sounds bilaterally with some crackles at the bases. ABDOMEN: Soft, nontender, nondistended. PEG tube intact and functional. EXTREMITIES: Bilateral palpable femoral pulses, nonpalpable pedal pulses, bluish discoloration of all the toes up to the forefoot and heel discoloration and break of the skin. Capillary refill about 3 to 4 seconds. SKIN- NO PETECHIA, THERE IS COUPLE SMALL HEMATOMA OF DIFFERENT AGE Results Result Diagram: 12/15/16 1450 12/15/16 0545 Results 24 hrs Laboratory Tests Test 12/15/16 05:21 12/15/16 05:45 12/15/16 07:15 12/15/16 14:50 Lab Scanned Report BLOOD TRANSFUSION White Blood Count 28.0 #H Red Blood Count 3.27 #L Hemoglobin 9.6 #L Hematocrit 31.3 #L Mean Corpuscular Volume 95.7 Mean Corpuscular Hemoglobin 29.4 Mean Corpuscular Hemoglobin Concent 30.7 L Red Cell Distribution Width 17.7 H Platelet Count 68 #L 72 L Mean Platelet Volume 13.8 H Neutrophils % 92.3 H Lymphocytes % 2.1 L Monocytes % 2.3 Eosinophils % 0.0 Basophils % 0.2 Nucleated Red Blood Cells % 0.0 Neutrophils # 25.8 H Lymphocytes # 0.6 L Monocytes # 0.6 Eosinophils # 0.0 Basophils # 0.1 Nucleated Red Blood Cells # 0.0 Sodium Level 138 Potassium Level 3.4 L Chloride Level 100 Carbon Dioxide Level 22 Anion Gap 19 H Blood Urea Nitrogen 50 H Creatinine 1.22 Glucose Level 78 Calcium Level 7.6 L Phosphorus Level 5.0 H Magnesium Level 1.8 Lactic Acid Level 7.9 *H Prothrombin Time 22.6 #H Prothrombin Time Ratio 1.8 INR International Normalized Ratio 1.97 Activated Partial Thromboplast Time 41.6 H Thrombin Time 17.6 Fibrinogen 401.0 Plasma Fibrin Degradation Products >10 and <40 H D-Dimer > 13846.00 H Lactate Dehydrogenase 699 H Medications Medications Current Medications Ondansetron HCl (Zofran Inj) 4 mg Q6H PRN IV NAUSEA AND/OR VOMITING; Start at 02:00 Pantoprazole (Protonix Iv) 40 mg DAILY@06 IV Last administered on 12/15/16 05: 07; Admin Dose 40 MG; Start 12/07/16 at 06:00 Amiodarone HCl (Cordarone) 400 mg DAILY GTB Last administered on 12/15/16 08:24 ; Admin Dose 400 MG; Start 12/07/16 at 09:00 Collagenase (Santyl) 1 applic DAILY TOP Last administered on 12/14/16 08:20; Admin Dose 1 APPLIC; Start 12/07/16 at 09:30 Collagenase 1 applic 1 applic PRN PRN TOP WOUND USE Last administered on 21:08; Admin Dose 1 APPLIC; Start 12/07/16 at 08:30 Fentanyl (Sublimaze) 100 ml @ 2.5 mls/hr TITRATE IV Last administered on 11:18; Admin Dose 2.5 MLS/HR; Start 12/07/16 at 14:00 Sodium Hypochlorite 1 applic 1 applic BID IRR Last administered on 12/15/16 10: 21; Admin Dose 1 APPLIC; Start 12/09/16 at 21:00 Erythromycin Lactobionate 250 mg/Sodium Chloride 100 ml @ 100 mls/hr Q6 IVPB Last administered on 12/15/16 18:02; Admin Dose 100 MLS/HR; Start 12/11/16 at 18 :00 Linezolid 300 ml @ 300 mls/hr Q12 IVPB Last administered on 12/15/16 08:23; Admin Dose 300 MLS/HR; Start 12/11/16 at 21:00 Norepinephrine 32 mg/Sodium Chloride 250 ml @ 0.46 mls/hr TITRATE IV Last administered on 12/15/16 19:16; Admin Dose 14.06 MLS/HR; Start 12/12/16 at 08:27 Phenylephrine HCl 160 mg/Sodium Chloride 500 ml @ 18.75 mls/ hr TITRATE IV Last administered on 12/15/16 22:14; Admin Dose 56.25 MLS/HR; Start 12/12/16 at 08:29 Vasopressin 60 unit/Sodium Chloride 60 ml @ 1.2 mls/hr Q12H IV Last administered on 12/15/16 16:02; Admin Dose 1.2 MLS/HR; Start 12/12/16 at 09:00 Caspofungin 50 mg/ Sodium Chloride 250 ml @ 250 mls/hr Q24H IVPB Last administered on 12/15/16 11:19; Admin Dose 250 MLS/HR; Start 12/13/16 at 11:00 Dextrose/Sodium Chloride (D5-NS) 1,000 ml @ 50 mls/hr Q20H IV Last administered on 12/15/16 02:37; Admin Dose 50 MLS/HR; Start 12/13/16 at 06:00 Miscellaneous Information 1 ea NOTE XX ; Start 12/13/16 at 06:30 Glucose (Glutose) 15 gm Q15M PRN PO DECREASED GLUCOSE; Start 12/13/16 at 06:30 Glucose (Glutose) 22.5 gm Q15M PRN PO DECREASED GLUCOSE; Start 12/13/16 at 06:30 Dextrose (D50w Syringe) 25 ml Q15M PRN IV DECREASED GLUCOSE; Start 12/13/16 at 06:30 Dextrose (D50w Syringe) 50 ml Q15M PRN IV DECREASED GLUCOSE Last administered on 12/13/16 06:11; Admin Dose 50 ML; Start 12/13/16 at 06:30 Glucagon (Glucagen) 1 mg Q15M PRN IM DECREASED GLUCOSE; Start 12/13/16 at 06:30 Glucose 15 gm 15 gm Q15M PRN BUCCAL DECREASED GLUCOSE; Start 12/13/16 at 06:30 Dopamine HCl 800 mg/Dextrose 250 ml @ 1.89 mls/hr TITRATE IV Last administered on 12/14/16 07:28; Admin Dose 18.97 MLS/HR; Start 12/13/16 at 09:30 Metronidazole (Flagyl 500 Mg (Pmx)) 100 ml @ 100 mls/hr Q8 IVPB Last administered on 12/15/16 14:55; Admin Dose 100 MLS/HR; Start 12/13/16 at 14:00 Acetaminophen 650 mg 650 mg Q4H PRN NGT PAIN AND OR ELEVATED TEMP Last administered on 12/14/16 18:08; Admin Dose 650 MG; Start 12/14/16 at 08:30 Meropenem 100 ml @ 200 mls/hr Q12 IVPB Last administered on 12/15/16 21:24; Admin Dose 200 MLS/HR; Start 12/14/16 at 13:00 Colistimethate Sodium/Sodium Chloride (Coly-Mycin/NS) 100 ml @ 200 mls/hr Q24H IVPB ; Start 12/16/16 at 09:00 Eye Lubricant (Akwa Oint) 1 applic Q4 BOTH EYES Last administered on 12/15/16 21:27; Admin Dose 1 APPLIC; Start 12/15/16 at 13:00 Eye Lubricant (Artificial Tears Oph) 2 drop Q4 BOTH EYES Last administered on 21:26; Admin Dose 2 DROP; Start 12/15/16 at 13:00 RENEE WONG MD December 15, 2016 22:37
[2016-12-16] VITALS (81 sets, daily range): BP systolic 80–118; BP diastolic 46–92; PULSE 69–96; RESP 14–30
[2016-12-16] MEDS: ERYTHROMYCIN LACTOBIONATE 250 MG in SOD CHLORIDE 0.9% 100 ML IVPB SCH ×4 (00:44→18:06)
[2016-12-16] MEDS: OCULAR LUBRICANT 3.5 GM OPH OINT BOTH EYES SCH ×6 (00:45→20:23)
[2016-12-16] MEDS: ARTIFICIAL TEARS 15 ML OPH BOTH EYES SCH ×6 (00:45→20:21)
[2016-12-16] MEDS: DEXTROSE 5%-0.9% NACL 1,000 ML IV SCH (01:00)
--- NOTE | 2016-12-16 01:20 | PN ---
Date/Time of Note Date/Time of Note DATE: 12/14/16 TIME: 21:19 Assessment/Plan Lines/Catheters IV Catheter Type (from [facility]): haroon cath Cruz in Place (from [facility]): No (supra-pubic cath) Assessment/Plan Chief Complaint/Hosp Course 1. Decubitus ulceration with necrotic tissue -debridement when medically stable -off loading -optimization of nutrition -vit c -local care 2. Sepsis with shock, multifactorial (le ischemia, wounds, lung, ? other) with lactic acidosis and leukocytosis. -abx -supportive -wound care -pulmonary toilette -aspiration precautions 3. Dysphagia on tube feeds 4. Anemia -monitor 5. Pelvic mass, hx of tongue and prostate cancer, currently with hydronephrosis -heme/onc -urology 6. Renal insufficiency -judicious fluid management 7. Diastolic heart failure -cardiac optimization -judicious fluid management 8. Hypoxemic respiratory failure with advanced COPD and aspiration PNAs -pulmonary toilette -aspiration precautions 9. Parkinson disease/neurodegenerative disorder with dementia -medical optimization Thank you, Late entry 12/14 Problems: Subjective 24 Hr Interval Summary Leukocytosis. No fevers or chills. No cough. No sz. No rash. Wounds. No vomiting. Bowel function. No bleeding. No bloating. Exam/Review of Systems Vital Signs Vitals Vital Signs Date Time Temp Pulse Resp B/P Pulse Ox O2 Delivery O2 Flow Rate FiO2 12/16/16 00:30 96 18 100/59 100 12/16/16 00:00 98.0 Mechanical Ventilator 12/15/16 23:20 40 Intake and Output 12/15/16 12/15/16 12/16/16 15:00 23:00 07:00 Intake Total 2032.48 ml 1996.18 ml 119.06 ml Output Total 97 ml 983 ml Balance 1935.48 ml 1013.18 ml 119.06 ml Exam Free Text/Dictation Constitutional: No oriented Psych: No nl mood/affect Head: normocephalic Eyes: EOMI, PERRL, nl conjunctiva, No icteric ENMT: nl external ears & nose, No mucosa pink and moist Neck: jvd, No non-tender, No supple Respiratory: No congested cough, No normal air movement Cardiovascular: No edema, No regular rate and rhythm, decreased pulses LEs Gastrointestinal: non-tender, soft, No rebound or guarding Musculoskeletal: No nl extremities to inspection, No nl gait and stance Extremities: No calf tenderness, No cyanosis, LE color changes Neurological: No nl mental status, No nl speech, No nl strength Skin: rash or lesions (decubitus ulcers with necrotic debris), No diaphoresis Lymph: nontender Results Result Diagram: 12/15/16 1450 12/15/16 0545 CHELSY CAIN MD December 16, 2016 01:20
--- NOTE | 2016-12-16 01:21 | PN ---
Date/Time of Note Date/Time of Note DATE: 12/15/16 TIME: 21:20 Assessment/Plan Lines/Catheters IV Catheter Type (from [facility]): haroon cath Cruz in Place (from [facility]): No (supra-pubic cath) Assessment/Plan Chief Complaint/Hosp Course 1. Decubitus ulceration with necrotic tissue -debridement when medically stable -off loading -optimization of nutrition -vit c -local care 2. Sepsis with shock, multifactorial (le ischemia, wounds, lung, ? other) with lactic acidosis and leukocytosis. -abx -supportive -wound care -pulmonary toilette -aspiration precautions 3. Dysphagia on tube feeds 4. Anemia -monitor 5. Pelvic mass, hx of tongue and prostate cancer, currently with hydronephrosis -heme/onc -urology 6. Renal insufficiency -judicious fluid management 7. Diastolic heart failure -cardiac optimization -judicious fluid management 8. Hypoxemic respiratory failure with advanced COPD and aspiration PNAs -pulmonary toilette -aspiration precautions 9. Parkinson disease/neurodegenerative disorder with dementia -medical optimization Thank you, Late entry 12/15 Problems: Subjective 24 Hr Interval Summary Leukocytosis. No fevers or chills. No cough. No sz. No rash. Wounds. No vomiting. Bowel function. No bleeding. No bloating. Exam/Review of Systems Vital Signs Vitals Vital Signs Date Time Temp Pulse Resp B/P Pulse Ox O2 Delivery O2 Flow Rate FiO2 12/16/16 00:30 96 18 100/59 100 12/16/16 00:00 98.0 Mechanical Ventilator 12/15/16 23:20 40 Intake and Output 12/15/16 12/15/16 12/16/16 15:00 23:00 07:00 Intake Total 2032.48 ml 1996.18 ml 119.06 ml Output Total 97 ml 983 ml Balance 1935.48 ml 1013.18 ml 119.06 ml Exam Free Text/Dictation Constitutional: No oriented Psych: No nl mood/affect Head: normocephalic Eyes: EOMI, PERRL, nl conjunctiva, No icteric ENMT: nl external ears & nose, No mucosa pink and moist Neck: jvd, No non-tender, No supple Respiratory: No congested cough, No normal air movement Cardiovascular: No edema, No regular rate and rhythm, decreased pulses LEs Gastrointestinal: non-tender, soft, No rebound or guarding Musculoskeletal: No nl extremities to inspection, No nl gait and stance Extremities: No calf tenderness, No cyanosis, LE color changes Neurological: No nl mental status, No nl speech, No nl strength Skin: rash or lesions (decubitus ulcers with necrotic debris), No diaphoresis Lymph: nontender Results Result Diagram: 12/15/16 1450 12/15/16 0545 CHELSY CAIN MD December 16, 2016 01:21
[2016-12-16] MEDS: ALBUTEROL 18 GM INHALER INH SCH ×6 (01:22→21:37)
[2016-12-16] MEDS: PANTOPRAZOLE 40 MG INJ IV SCH (06:14)
[2016-12-16] MEDS: metroNIDAZOLE 500 MG/NS (PMX) 100 ML IVPB SCH ×3 (06:24→21:47)
[2016-12-16 06:33] LABS: ADD SCAN DIFF NO
[2016-12-16 06:44] LABS: ABNORMAL IP MESSAGE 1; HEMATOCRIT 25.5 % (42.0-52.0); HEMOGLOBIN 7.9 g/dl (14.0-18.0); MEAN CORPUSCULAR HEMOGLOBIN 29.4 pg (29.0-33.0); MEAN CORPUSCULAR VOLUME 94.8 fl (82.0-101.0); MEAN PLATELET VOLUME 14.1 fl (7.4-10.4); PLATELET COUNT 46 10^3/UL (140-415); RED BLOOD COUNT 2.69 10^6/ul (4.70-6.10); RED CELL DISTRIBUTION WIDTH 18.3 % (11.5-14.5); WHITE BLOOD COUNT 29.2 10^3/ul (4.8-10.8)
[2016-12-16 07:05] LABS: CREATININE 1.26 mg/dl (0.61-1.24); MAGNESIUM 1.7 mg/dl (1.7-2.5); PHOSPHORUS 4.7 mg/dl (2.5-4.9); POTASSIUM 3.2 mmol/L (3.5-5.1)
[2016-12-16 07:24] LABS: IRON < 10 ug/dl (35-150)
[2016-12-16 07:29] LABS: TOTAL IRON BINDING CAPACITY 95 ug/dl (241-421)
[2016-12-16] MEDS: PHENYLephrine 160 MG in SOD CHLORIDE 0.9% 484 ML IV SCH ×2 (07:29→15:52)
[2016-12-16 07:41] LABS: AADO2 Arterial 142.9 mmHg (7.0-24.0); Allen Test ACCEPTAB; Arterial Base Excess -6.1 mmol/L (-3.0-3); Arterial COHb 0.2 % (0.0-3.0); Arterial Fraction of Oxyhgb 96.3 % (93.0-99.0); Arterial HCO3 18.8 mmol/L (22.0-26.0); Arterial MetHb 0.8 % (0.0-1.5); Arterial Total Hemglobin 8.1 g/dl (12.0-18.0); Blood Gas Low PEEP Setting 0 cmH2O; MODE VENT - AC
--- NOTE | 2016-12-16 07:49 | RADRPT ---
PROCEDURE: XR Chest. CLINICAL INDICATION: Shortness of breath. TECHNIQUE: Single frontal view. COMPARISON: 12/13/2016. FINDINGS: The endotracheal tube and left arm PICC line remain in satisfactory position. There is bilateral pu lmonary air space and interstitial disease in the mid and lower lung zones consistent with pulmonary edema. The heart size is normal. There is calcification in the aorta consistent with atherosclerosis. Moderate bilateral pleural effusions are slightly larger than seen previously. There is no pneumothorax. There is chronic fracture deformity of the distal right clavicle. IMPRESSION: 1. Larger bilateral pleural effusions. 2. No other change from 12/13/2016. RPTAT: QQ .Quan Olvera MD, MD Date Time Electronically viewed and signed by .Quan Olvera MD, on 12/16/2016 07:49 .R/
--- NOTE | 2016-12-16 07:53 | PN ---
DATE: 12/16/2016 SUBJECTIVE: The patient remains critically ill, on 2-pressor support. The patient attempted hemodi alysis yesterday and it was discontinued because of hypotension and tachycardia. Urinary output rem ains minimal. No other acute events noted. No hemoptysis, hematemesis or hematochezia. OBJECTIVE: VITAL SIGNS: Blood pressure 103/87, respirations 24, pulse 79, temperature 97.8. I's AND O'S: The patient had 5.2 liters in, with 800 mL out. HEENT: Head is normocephalic. Pupils are reactive to light. NECK: Supple. HEART: Tachycardic. LUNGS: Showed diminished breath sounds at the base. Positive rhonchi and crackles. ABDOMEN: Soft, distended. Nontender to palpation. EXTREMITIES: Negative for clubbing or cyanosis. Diffuse edema, anasarca of upper and lower extremi ties. DERMATOLOGIC: No new rashes. MUSCULOSKELETAL: Positive decubitus wounds. NEUROLOGIC: The patient remains obtunded. MUSCULOSKELETAL: Have no joint effusions. LABORATORY DATA: Currently pending. The patient's D-dimers are greater than 10,000. Fibrinogen 40 1. IMAGING STUDIES: Were reviewed. ASSESSMENT AND PLAN: 1. Septic shock. Etiology is secondary to healthcare-associated pneumonia, decubitus wound, and UT I. The patient remains critically ill, maxed out on 2 pressors. At this point would continue the c urrent treatment plan, continue IV antibiotics, continue pressor support, continue IV hydration, wea n off if possible. 2. Ventilator-dependent respiratory failure. Vent settings were reviewed. ABG was reviewed. Cont inue to monitor. The patient is not a weaning candidate. 3. Oliguric acute kidney injury on top of chronic kidney disease. Etiology of acute kidney injury is secondary to acute tubular necrosis. The patient is currently dialysis dependent. Unable to duncan erate dialysis yesterday due to hemodynamic instability. Will continue to monitor. 4. Mixed acid base disorder. The patient's ABG was reviewed. Will continue to monitor. 5. Hyponatremia secondary to acute kidney injury. Improved. Continue dialysis with a 140 sodium b ath. Will discontinue D5W. 6. Mineral bone disorder. Continue to monitor calcium and phosphorus levels. 7. Acute encephalopathy. Etiology is toxic metabolic. No change. Continue to observe. 8. Anemia. Status post blood transfusion. Continue to monitor H and H levels. 9. Thrombocytopenia. Etiology is concerning for possible DIC, medication induced, sepsis. Workup ongoing. Follow up with hematology. 10. Atrial fibrillation. Currently rate controlled. Continue medical management. 11. Bilateral hydronephrosis secondary to pelvic mass. Continue to monitor. Follow up with Dr. Skylar benavides. 12. Leukocytosis secondary to sepsis. Continue the current treatment plan, as stated above. 13. Lower extremity decubitus wounds. Continue wound care. Follow up with general surgery. 14. Ischemic gangrenous toes secondary to sepsis and pressor support. The patient was seen by [facility] surgery. No plans for intervention at this time. 15. Gastrointestinal and deep venous thrombosis prophylaxis. Continue proton pump inhibitor and se quential leg squeezers. 16. Dysphagia. Stable. Resume tube feeding. Please note, I spent over 40 minutes of critical care time with this patient. Dictated By: JAX ANDRADE/CHELSI Conf#: [id number] DID#: [id number]
[2016-12-16 08:12] LABS: LYMPHOCYTES # 0.9 10^3/ul (0.8-2.9); MONOCYTE # 0.6 10^3/ul (0.3-0.9); MYELOCYTES # 0.6; NEUTROPHIL # 23.7 10^3/ul (1.6-7.5); TOXIC GRANULATION 2+
[2016-12-16 08:13] LABS: PLATELET ESTIMATE PLT APPEAR DECREASED
[2016-12-16] MEDS: VASOPRESSIN 60 UNIT in SOD CHLORIDE 0.9% 57 ML IV SCH ×2 (09:00→21:00)
[2016-12-16] MEDS: AMIODARONE 200 MG TAB GTB SCH (09:24)
[2016-12-16] MEDS: MEROPENEM 500 MG/100 ML (PMX) 100 ML IVPB SCH ×2 (09:25→20:21)
[2016-12-16] MEDS: COLLAGENASE 30 GM TUBE TOP SCH (09:25)
[2016-12-16] MEDS: LINEZOLID 600 MG/D5W (PMX) 300 ML IVPB SCH ×2 (09:25→20:24)
[2016-12-16] MEDS: SODIUM HYPOCHLORITE 0.125% 473 ML BTL IRR SCH ×2 (09:25→20:23)
--- NOTE | 2016-12-16 09:34 | CONS ---
Date/Time of Note Date/Time of Note DATE: 12/16/16 TIME: 09:31 Assessment/Plan Assessment/Plan Additional Assessment/Plan Chest x-ray was reviewed from today which is showing bilateral pleural effusions. Ventilator settings; AC of 14, tidal volume 500, PEEP of 0, 40% FiO2. Patient currently on phenylephrine drip at 20 mics per minute, Levophed 30 mics per minute. Assessment recommendations; 1. Patient admitted for severe sepsis due to sacral decubitus ulcers. 2. Worsening renal function, patient on hemodialysis. 3. Profound shock. 4. Generalized anasarca. 5. Cardiac arrhythmia. 6. Thrombocytopenia and anemia. 7. Metastatic renal cell cancer. 9. Right hydronephrosis. Continue current supportive care. Prognosis is dismal. Consultation Date/Type/Reason Admit Date/Time Dec 07, 2016 at 01:03 Initial Consult Date 12/07/16 Type of Consultation: Pulmonary/critical care Referring Provider: JAX SLATER DO 24 HR Interval Summary Free Text/Dictation Condition remains critical. Remains unresponsive. Still requiring high-dose pressor support with combination Levophed and phenylephrine drips. General exam; elderly male, on ventilator, orally intubated, currently in no distress, unresponsive. Exam/Review of Systems Vital Signs Vitals Vital Signs Date Time Temp Pulse Resp B/P Pulse Ox O2 Delivery O2 Flow Rate FiO2 12/16/16 07:34 82 20 100 40 12/16/16 06:00 103/87 12/16/16 04:00 97.8 12/16/16 00:00 Mechanical Ventilator Intake and Output 12/15/16 12/15/16 12/16/16 15:00 23:00 07:00 Intake Total 2032.48 ml 1996.18 ml 1088.42 ml Output Total 97 ml 1005 ml 229 ml Balance 1935.48 ml 991.18 ml 859.42 ml Exam HEENT examination; supple neck, positive JVD. No lymphadenopathy. Midline trachea. No thyromegaly. Patient has multiple carious teeth. Orally intubated. There are minimal bilateral corneal opacities. There is a well- healed tracheostomy scar. Chest examination of Abiel diminished breath sounds throughout with bilateral crackles. S1-S2 audible, irregular rhythm. Abdomen examination; soft, nondistended, G-tube in place. Bowel sounds audible. Next Extremity examination; 2+ anasarca. Patient does have gangrene developing involving fingers and toes bilaterally. NEGATIVE RESTORER examination; patient is unresponsive. Results Result Diagram: 12/16/1651912/16/16 0520 Results 24 hrs Laboratory Tests Test 12/15/16 14:50 12/16/16 05:20 12/16/16 07:00 12/16/16 07:30 Platelet Count 72 L 46 #L Prothrombin Time 22.6 #H Prothrombin Time Ratio 1.8 INR International Normalized Ratio 1.97 Activated Partial Thromboplast Time 41.6 H Thrombin Time 17.6 Fibrinogen 401.0 Plasma Fibrin Degradation Products >10 and <40 H D-Dimer > 74855.00 H Lactate Dehydrogenase 699 H White Blood Count 29.2 H Red Blood Count 2.69 L Hemoglobin 7.9 L Hematocrit 25.5 L Mean Corpuscular Volume 94.8 Mean Corpuscular Hemoglobin 29.4 Mean Corpuscular Hemoglobin Concent 31.0 L Red Cell Distribution Width 18.3 H Mean Platelet Volume 14.1 H Neutrophils % 81.0 H Band Neutrophils % 12.0 H Lymphocytes % 3.0 L Monocytes % 2.0 Eosinophils % Myelocytes % 2.0 H Neutrophils # 23.7 H Lymphocytes # 0.9 Monocytes # 0.6 Eosinophils # Myelocytes # 0.6 Toxic Granulation 2+ Platelet Estimate PLT APPEAR DECREASED Sodium Level 137 Potassium Level 3.2 L Chloride Level 106 Carbon Dioxide Level 21 Anion Gap 13 Blood Urea Nitrogen 45 H Creatinine 1.26 H Glucose Level 64 #L Calcium Level 8.0 L Phosphorus Level 4.7 Magnesium Level 1.7 Iron Level < 10 L Total Iron Binding Capacity 95 L Percent Iron Saturation Blood Gas Specimen Source Blood arterial Arterial Blood Date Drawn 12/16/2016 7:34:57 AM Arterial Blood pH (Temp corrected) 7.354 Arterial Blood pCO2 (Temp correct) 34.6 L Arterial Blood pO2 (Temp corrected) 102.5 H Arterial Blood HCO3 18.8 L Arterial Blood Base Excess -6.1 L Arterial Blood Oxygen Saturation 97.3 Eric Test ACCEPTAB Arterial Blood Gas Puncture Site Left Radial Arterial Blood Carboxyhemoglobin 0.2 Arterial Blood Methemoglobin 0.8 Blood Gas A-a O2 Differential 142.9 H Oxyhemoglobin Percent 96.3 Total Hemoglobin 8.1 L Blood Gas Temperature 37.0 Blood Gas Respiration Rate 14.0 Blood Gas Actual Respiration Rate 19 Blood Gas Modality VENT - AC FiO2 40.0 Blood Gas Tidal Volume 500.0 Blood Gas Low PEEP Setting 0 Blood Gas Notified Whom M.D. Blood Gas Notified Time 12/16/2016 7:41:42 AM Lactic Acid Level 8.1 *H Medications Medications Current Medications Ondansetron HCl (Zofran Inj) 4 mg Q6H PRN IV NAUSEA AND/OR VOMITING; Start at 02:00 Pantoprazole (Protonix Iv) 40 mg DAILY@06 IV Last administered on 12/16/16 06: 14; Admin Dose 40 MG; Start 12/07/16 at 06:00 Amiodarone HCl (Cordarone) 400 mg DAILY GTB Last administered on 12/16/16 09:24 ; Admin Dose 400 MG; Start 12/07/16 at 09:00 Collagenase (Santyl) 1 applic DAILY TOP Last administered on 12/16/16 09:25; Admin Dose 1 APPLIC; Start 12/07/16 at 09:30 Collagenase 1 applic 1 applic PRN PRN TOP WOUND USE Last administered on 21:08; Admin Dose 1 APPLIC; Start 12/07/16 at 08:30 Fentanyl (Sublimaze) 100 ml @ 2.5 mls/hr TITRATE IV Last administered on 11:18; Admin Dose 2.5 MLS/HR; Start 12/07/16 at 14:00 Sodium Hypochlorite 1 applic 1 applic BID IRR Last administered on 12/16/16 09: 25; Admin Dose 1 APPLIC; Start 12/09/16 at 21:00 Erythromycin Lactobionate 250 mg/Sodium Chloride 100 ml @ 100 mls/hr Q6 IVPB Last administered on 12/16/16 06:14; Admin Dose 100 MLS/HR; Start 12/11/16 at 18 :00 Linezolid 300 ml @ 300 mls/hr Q12 IVPB Last administered on 12/16/16 09:25; Admin Dose 300 MLS/HR; Start 12/11/16 at 21:00 Norepinephrine 32 mg/Sodium Chloride 250 ml @ 0.46 mls/hr TITRATE IV Last administered on 12/15/16 19:16; Admin Dose 14.06 MLS/HR; Start 12/12/16 at 08:27 Phenylephrine HCl 160 mg/Sodium Chloride 500 ml @ 18.75 mls/ hr TITRATE IV Last administered on 12/16/16 07:29; Admin Dose 52.5 MLS/HR; Start 12/12/16 at 08 :29 Vasopressin 60 unit/Sodium Chloride 60 ml @ 1.2 mls/hr Q12H IV Last administered on 12/15/16 16:02; Admin Dose 1.2 MLS/HR; Start 12/12/16 at 09:00 Caspofungin 50 mg/ Sodium Chloride 250 ml @ 250 mls/hr Q24H IVPB Last administered on 12/15/16 11:19; Admin Dose 250 MLS/HR; Start 12/13/16 at 11:00 Dextrose/Sodium Chloride (D5-NS) 1,000 ml @ 50 mls/hr Q20H IV Last administered on 12/16/16 01:00; Admin Dose 50 MLS/HR; Start 12/13/16 at 06:00 Miscellaneous Information 1 ea NOTE XX ; Start 12/13/16 at 06:30 Glucose (Glutose) 15 gm Q15M PRN PO DECREASED GLUCOSE; Start 12/13/16 at 06:30 Glucose (Glutose) 22.5 gm Q15M PRN PO DECREASED GLUCOSE; Start 12/13/16 at 06:30 Dextrose (D50w Syringe) 25 ml Q15M PRN IV DECREASED GLUCOSE; Start 12/13/16 at 06:30 Dextrose (D50w Syringe) 50 ml Q15M PRN IV DECREASED GLUCOSE Last administered on 12/13/16 06:11; Admin Dose 50 ML; Start 12/13/16 at 06:30 Glucagon (Glucagen) 1 mg Q15M PRN IM DECREASED GLUCOSE; Start 12/13/16 at 06:30 Glucose 15 gm 15 gm Q15M PRN BUCCAL DECREASED GLUCOSE; Start 12/13/16 at 06:30 Dopamine HCl 800 mg/Dextrose 250 ml @ 1.89 mls/hr TITRATE IV Last administered on 12/14/16 07:28; Admin Dose 18.97 MLS/HR; Start 12/13/16 at 09:30 Metronidazole (Flagyl 500 Mg (Pmx)) 100 ml @ 100 mls/hr Q8 IVPB Last administered on 12/16/16 06:24; Admin Dose 100 MLS/HR; Start 12/13/16 at 14:00 Acetaminophen 650 mg 650 mg Q4H PRN NGT PAIN AND OR ELEVATED TEMP Last administered on 12/14/16 18:08; Admin Dose 650 MG; Start 12/14/16 at 08:30 Meropenem 100 ml @ 200 mls/hr Q12 IVPB Last administered on 12/16/16 09:25; Admin Dose 200 MLS/HR; Start 12/14/16 at 13:00 Colistimethate Sodium/Sodium Chloride (Coly-Mycin/NS) 100 ml @ 200 mls/hr Q24H IVPB ; Start 12/16/16 at 09:00 Eye Lubricant (Akwa Oint) 1 applic Q4 BOTH EYES Last administered on 12/16/16 09:25; Admin Dose 1 APPLIC; Start 12/15/16 at 13:00 Eye Lubricant (Artificial Tears Oph) 2 drop Q4 BOTH EYES Last administered on 09:25; Admin Dose 2 DROP; Start 12/15/16 at 13:00 WERNER CHURCH December 16, 2016 09:34
[2016-12-16] MEDS: COLISTIMETHATE 75 MG in SOD CHLORIDE 0.9% 100 ML IVPB SCH (09:57)
--- NOTE | 2016-12-16 10:08 | CONS ---
Date/Time of Note Date/Time of Note DATE: 12/16/16 TIME: 10:06 Assessment/Plan Assessment/Plan Chief Complaint/Hosp Course THROMBOCYTOPENIA IN PT WITH SEPTIC SHOCK , EXPOSED TO MULTIPLE MEDS , INCLUDING HEPARIN, VANCO, IMIPENEM, PROTONIX AND OTHER DIC- NEG, LDH- NOTED HIPA- P SMEAR- P MONITOR PLATELET COUNT CLOSELY TRANSFUSE PLATELET IF COUNT LESS THAN [id number] OR IF PT IS BLEEDING NO INDICATIONS FOR TRANSFUSION TODAY Severe anemia. POST 3 U PRBC PROCEED WITH LIMITED W-UP TRANSFUSE 1 MORE U TODAY Septic shock. Patient on 3 pressor support Prerenal azotemia. Prostate cancer. Tongue cancer. Parkinson's disease. Dementia. Respiratory failure. Abnormal liver function tests. Patient has a multiple non-defined lesion in the liver Atrial fibrillation. Hydronephrosis. Rectal bleeding probably from the tumor invading the rectum. Gastroparesis Bilateral lower extremity atherosclerosis with gangrene Problems: Consultation Date/Type/Reason Admit Date/Time Dec 07, 2016 at 01:03 Initial Consult Date 12/15/16 [facility] Referring Provider: JAX SLATER DO 24 HR Interval Summary Free Text/Dictation ALL NOTED D/W RN Exam/Review of Systems Vital Signs Vitals Vital Signs Date Time Temp Pulse Resp B/P Pulse Ox O2 Delivery O2 Flow Rate FiO2 12/16/16 09:51 73 18 100 40 12/16/16 06:00 103/87 12/16/16 04:00 97.8 12/16/16 00:00 Mechanical Ventilator Intake and Output 12/15/16 12/15/16 12/16/16 15:00 23:00 07:00 Intake Total 2032.48 ml 1996.18 ml 1088.42 ml Output Total 97 ml 1005 ml 229 ml Balance 1935.48 ml 991.18 ml 859.42 ml Exam Free Text/Dictation Constitutional: No oriented Psych: No nl mood/affect Head: normocephalic Eyes: EOMI, PERRL, nl conjunctiva, No icteric ENMT: nl external ears & nose, No mucosa pink and moist Neck: jvd, No non-tender, No supple Respiratory: No congested cough, No normal air movement Cardiovascular: No edema, No regular rate and rhythm, decreased pulses LEs Gastrointestinal: non-tender, soft, No rebound or guarding Musculoskeletal: No nl extremities to inspection, No nl gait and stance Extremities: No calf tenderness, No cyanosis, LE color changes Neurological: No nl mental status, No nl speech, No nl strength Skin: rash or lesions (decubitus ulcers with necrotic debris), No diaphoresis Lymph: nontender Results Result Diagram: 12/16/16 0520 12/16/16 0520 Results 24 hrs Laboratory Tests Test 12/15/16 14:50 12/16/16 05:20 12/16/16 07:00 12/16/16 07:30 Platelet Count 72 L 46 #L Prothrombin Time 22.6 #H Prothrombin Time Ratio 1.8 INR International Normalized Ratio 1.97 Activated Partial Thromboplast Time 41.6 H Thrombin Time 17.6 Fibrinogen 401.0 Plasma Fibrin Degradation Products >10 and <40 H D-Dimer > 96381.00 H Lactate Dehydrogenase 699 H White Blood Count 29.2 H Red Blood Count 2.69 L Hemoglobin 7.9 L Hematocrit 25.5 L Mean Corpuscular Volume 94.8 Mean Corpuscular Hemoglobin 29.4 Mean Corpuscular Hemoglobin Concent 31.0 L Red Cell Distribution Width 18.3 H Mean Platelet Volume 14.1 H Neutrophils % 81.0 H Band Neutrophils % 12.0 H Lymphocytes % 3.0 L Monocytes % 2.0 Eosinophils % Myelocytes % 2.0 H Neutrophils # 23.7 H Lymphocytes # 0.9 Monocytes # 0.6 Eosinophils # Myelocytes # 0.6 Toxic Granulation 2+ Platelet Estimate PLT APPEAR DECREASED Sodium Level 137 Potassium Level 3.2 L Chloride Level 106 Carbon Dioxide Level 21 Anion Gap 13 Blood Urea Nitrogen 45 H Creatinine 1.26 H Glucose Level 64 #L Calcium Level 8.0 L Phosphorus Level 4.7 Magnesium Level 1.7 Iron Level < 10 L Total Iron Binding Capacity 95 L Percent Iron Saturation Blood Gas Specimen Source Blood arterial Arterial Blood Date Drawn 12/16/2016 7:34:57 AM Arterial Blood pH (Temp corrected) 7.354 Arterial Blood pCO2 (Temp correct) 34.6 L Arterial Blood pO2 (Temp corrected) 102.5 H Arterial Blood HCO3 18.8 L Arterial Blood Base Excess -6.1 L Arterial Blood Oxygen Saturation 97.3 Eric Test ACCEPTAB Arterial Blood Gas Puncture Site Left Radial Arterial Blood Carboxyhemoglobin 0.2 Arterial Blood Methemoglobin 0.8 Blood Gas A-a O2 Differential 142.9 H Oxyhemoglobin Percent 96.3 Total Hemoglobin 8.1 L Blood Gas Temperature 37.0 Blood Gas Respiration Rate 14.0 Blood Gas Actual Respiration Rate 19 Blood Gas Modality VENT - AC FiO2 40.0 Blood Gas Tidal Volume 500.0 Blood Gas Low PEEP Setting 0 Blood Gas Notified Whom M.DAry Blood Gas Notified Time 12/16/2016 7:41:42 AM Lactic Acid Level 8.1 *H Medications Medications Current Medications Ondansetron HCl (Zofran Inj) 4 mg Q6H PRN IV NAUSEA AND/OR VOMITING; Start at 02:00 Pantoprazole (Protonix Iv) 40 mg DAILY@06 IV Last administered on 12/16/16 06: 14; Admin Dose 40 MG; Start 12/07/16 at 06:00 Amiodarone HCl (Cordarone) 400 mg DAILY GTB Last administered on 12/16/16 09:24 ; Admin Dose 400 MG; Start 12/07/16 at 09:00 Collagenase (Santyl) 1 applic DAILY TOP Last administered on 12/16/16 09:25; Admin Dose 1 APPLIC; Start 12/07/16 at 09:30 Collagenase 1 applic 1 applic PRN PRN TOP WOUND USE Last administered on 21:08; Admin Dose 1 APPLIC; Start 12/07/16 at 08:30 Fentanyl (Sublimaze) 100 ml @ 2.5 mls/hr TITRATE IV Last administered on 11:18; Admin Dose 2.5 MLS/HR; Start 12/07/16 at 14:00 Sodium Hypochlorite 1 applic 1 applic BID IRR Last administered on 12/16/16 09: 25; Admin Dose 1 APPLIC; Start 12/09/16 at 21:00 Erythromycin Lactobionate 250 mg/Sodium Chloride 100 ml @ 100 mls/hr Q6 IVPB Last administered on 12/16/16 06:14; Admin Dose 100 MLS/HR; Start 12/11/16 at 18 :00 Linezolid 300 ml @ 300 mls/hr Q12 IVPB Last administered on 12/16/16 09:25; Admin Dose 300 MLS/HR; Start 12/11/16 at 21:00 Norepinephrine 32 mg/Sodium Chloride 250 ml @ 0.46 mls/hr TITRATE IV Last administered on 12/15/16 19:16; Admin Dose 14.06 MLS/HR; Start 12/12/16 at 08:27 Phenylephrine HCl 160 mg/Sodium Chloride 500 ml @ 18.75 mls/ hr TITRATE IV Last administered on 12/16/16 07:29; Admin Dose 52.5 MLS/HR; Start 12/12/16 at 08 :29 Vasopressin 60 unit/Sodium Chloride 60 ml @ 1.2 mls/hr Q12H IV Last administered on 12/15/16 16:02; Admin Dose 1.2 MLS/HR; Start 12/12/16 at 09:00 Caspofungin 50 mg/ Sodium Chloride 250 ml @ 250 mls/hr Q24H IVPB Last administered on 12/15/16 11:19; Admin Dose 250 MLS/HR; Start 12/13/16 at 11:00 Dextrose/Sodium Chloride (D5-NS) 1,000 ml @ 50 mls/hr Q20H IV Last administered on 12/16/16 01:00; Admin Dose 50 MLS/HR; Start 12/13/16 at 06:00 Miscellaneous Information 1 ea NOTE XX ; Start 12/13/16 at 06:30 Glucose (Glutose) 15 gm Q15M PRN PO DECREASED GLUCOSE; Start 12/13/16 at 06:30 Glucose (Glutose) 22.5 gm Q15M PRN PO DECREASED GLUCOSE; Start 12/13/16 at 06:30 Dextrose (D50w Syringe) 25 ml Q15M PRN IV DECREASED GLUCOSE; Start 12/13/16 at 06:30 Dextrose (D50w Syringe) 50 ml Q15M PRN IV DECREASED GLUCOSE Last administered on 12/13/16 06:11; Admin Dose 50 ML; Start 12/13/16 at 06:30 Glucagon (Glucagen) 1 mg Q15M PRN IM DECREASED GLUCOSE; Start 12/13/16 at 06:30 Glucose 15 gm 15 gm Q15M PRN BUCCAL DECREASED GLUCOSE; Start 12/13/16 at 06:30 Dopamine HCl 800 mg/Dextrose 250 ml @ 1.89 mls/hr TITRATE IV Last administered on 12/14/16 07:28; Admin Dose 18.97 MLS/HR; Start 12/13/16 at 09:30 Metronidazole (Flagyl 500 Mg (Pmx)) 100 ml @ 100 mls/hr Q8 IVPB Last administered on 12/16/16 06:24; Admin Dose 100 MLS/HR; Start 12/13/16 at 14:00 Acetaminophen 650 mg 650 mg Q4H PRN NGT PAIN AND OR ELEVATED TEMP Last administered on 12/14/16 18:08; Admin Dose 650 MG; Start 12/14/16 at 08:30 Meropenem 100 ml @ 200 mls/hr Q12 IVPB Last administered on 12/16/16 09:25; Admin Dose 200 MLS/HR; Start 12/14/16 at 13:00 Colistimethate Sodium/Sodium Chloride (Coly-Mycin/NS) 100 ml @ 200 mls/hr Q24H IVPB ; Start 12/16/16 at 09:00 Eye Lubricant (Akwa Oint) 1 applic Q4 BOTH EYES Last administered on 12/16/16 09:25; Admin Dose 1 APPLIC; Start 12/15/16 at 13:00 Eye Lubricant (Artificial Tears Oph) 2 drop Q4 BOTH EYES Last administered on 09:25; Admin Dose 2 DROP; Start 12/15/16 at 13:00 RENEE WONG MD December 16, 2016 10:08
[2016-12-16] MEDS: NORepinephrine 32 MG in SOD CHLORIDE 0.9% 218 ML IV SCH (11:47)
[2016-12-16] MEDS: CASPOFUNGIN 50 MG in SOD CHLORIDE 0.9% 250 ML IVPB SCH (12:00)
--- NOTE | 2016-12-16 13:05 | PN ---
DATE: 12/16/2016 SUBJECTIVE: No events overnight. The patient is maxed on Levophed and Ludwin-Synephrine drip. Afebri le, intubated, in no distress. LABORATORY DATA: WBC 29.2, H and H 7.9 and 25.5, platelets 46. BUN 45, creatinine 1.26. Lactic ac id 8.1. MICROBIOLOGY: Blood cultures since 12/14/2016 and urine culture remain negative. Endotracheal aspi rate growing pseudomonas. INDWELLINGS: Endotracheal tube, PEG, right femoral triple-lumen catheter, left femoral Schuyler cath eter, left upper extremity PICC line, suprapubic catheter. ANTIMICROBIALS: The patient is on: 1. IV colistin. 2. Meropenem. 3. Flagyl. 4. Cancidas 5. Zyvox. PHYSICAL EXAMINATION: GENERAL: This is a chronically ill-appearing, elderly man who is intubated, in no distress. HEENT: Head atraumatic, normocephalic. Sclerae anicteric. Buccal mucosa dry. NECK: Supple. CHEST: Rise symmetrical. Breath sounds with bilateral rhonchi. HEART: S1, S2. ABDOMEN: Distended, bowel sounds absent. EXTREMITIES: With edema and gangrenous changes and acrocyanosis. ASSESSMENT: 1. Severe sepsis with shock and multisystem organ failure. 2. Acute respiratory failure. 3. Acute kidney failure, on hemodialysis. 4. Multiple infected decubiti, status post debridements in the past. 5. Large invasive malignant pelvic mass. 6. History of prostate and tongue carcinoma. 7. Anemia and thrombocytopenia. 8. Acute on chronic encephalopathy. 9. Bilateral extremities gangrene. PLAN: The patient remains hemodynamically unstable, overall doing poorly. He is maxed on pressors. He is covered with broad-spectrum antibiotics. Dictated By: LUIS ARMANDO MIRANDA [employer] for MICHAEL MONAHAN MD NI/NTS Conf#: [id number] DID#: [id number]
[2016-12-16 13:49] LABS: FOLATE > 20.0 ng/ml (2.8-20.0)
[2016-12-16] MEDS ORDERED: NORepinephrine 32 MG in SOD CHLORIDE 0.9% 218 ML IV SCH (15:00)
--- NOTE | 2016-12-16 15:55 | PN ---
Date/Time of Note Date/Time of Note DATE: 12/16/16 TIME: 15:55 Assessment/Plan Lines/Catheters IV C[facility]from [facility]): KATHERINE CATHETER Assessment/Plan Chief Complaint/Hosp Course 1. Decubitus ulceration with necrotic tissue -debridement when medically stable -off loading -optimization of nutrition -vit c -local care 2. Sepsis with shock, multifactorial (le ischemia, wounds, lung, ? other) with lactic acidosis and leukocytosis. -abx -supportive -wound care -pulmonary toilette -aspiration precautions 3. Dysphagia on tube feeds 4. Anemia -monitor 5. Pelvic mass, hx of tongue and prostate cancer, currently with hydronephrosis -heme/onc -urology 6. Renal insufficiency -judicious fluid management 7. Diastolic heart failure -cardiac optimization -judicious fluid management 8. Hypoxemic respiratory failure with advanced COPD and aspiration PNAs -pulmonary toilette -aspiration precautions 9. Parkinson disease/neurodegenerative disorder with dementia -medical optimization Thank you, Problems: Subjective 24 Hr Interval Summary Leukocytosis. No fevers or chills. No cough. No sz. No rash. Wounds. No vomiting. Bowel function. No bleeding. No bloating. Exam/Review of Systems Vital Signs Vitals Vital Signs Date Time Temp Pulse Resp B/P Pulse Ox O2 Delivery O2 Flow Rate FiO2 12/16/16 13:47 73 19 100 40 12/16/16 12:00 97.4 99/59 Mechanical Ventilator Intake and Output 12/15/16 12/15/16 12/16/16 15:00 23:00 07:00 Intake Total 2032.48 ml 1996.18 ml 1088.42 ml Output Total 97 ml 1005 ml 229 ml Balance 1935.48 ml 991.18 ml 859.42 ml Exam Free Text/Dictation Constitutional: No oriented Psych: No nl mood/affect Head: normocephalic Eyes: EOMI, PERRL, nl conjunctiva, No icteric ENMT: nl external ears & nose, No mucosa pink and moist Neck: jvd, No non-tender, No supple Respiratory: No congested cough, No normal air movement Cardiovascular: No edema, No regular rate and rhythm, decreased pulses LEs Gastrointestinal: non-tender, soft, No rebound or guarding Musculoskeletal: No nl extremities to inspection, No nl gait and stance Extremities: No calf tenderness, No cyanosis, LE color changes Neurological: No nl mental status, No nl speech, No nl strength Skin: rash or lesions (decubitus ulcers with necrotic debris), No diaphoresis Lymph: nontender Results Result Diagram: 12/16/1651912/16/16519 CHELSY CAIN MD December 16, 2016 15:55
[2016-12-16] MEDS: FENTAnyl (DRIP) 1000 mcg/100mL 100 ML IV SCH (16:20)
--- NOTE | 2016-12-16 19:30 | CONS ---
Date/Time of Note Date/Time of Note DATE: 12/16/16 TIME: 19:28 Assessment/Plan Assessment/Plan Additional Assessment/Plan Assessment/Plan Additional Assessment/Plan IMPRESSION: 1. Septic shock. Patient on 3 pressor support 2. Severe anemia. 3. Prerenal azotemia. 4. Prostate cancer. 5. Tongue cancer. 6. Parkinson's disease. 7. Dementia. 8. Respiratory failure. 9. Abnormal liver function tests. Patient has a multiple non-defined lesion in the liver 10. Atrial fibrillation. 11. Hydronephrosis. 12. Rectal bleeding probably from the tumor invading the rectum. 13. Gastroparesis 14 gangrene of the toes Plan Continue antibiotic Continue all the supportive care Continue vent support and nutrition. Will monitor WBC count and hematocrit closely. Patient prognosis remains poor. patient on erythromycin resume feeding. Patient is unable to tolerate feeding. He is not a candidate for Reglan given the history of Parkinson's disease Consultation Date/Type/Reason Admit Date/Time Dec 07, 2016 at 01:03 Initial Consult Date 12/07/16 Type of Consultation: [facility] Referring Provider: JAX SLATER DO 24 HR Interval Summary Free Text/Dictation Patient on pressor support medication He is still a full code Subjective hx not possible: pt non-verbal, pt critical Exam/Review of Systems Vital Signs Vitals Vital Signs Date Time Temp Pulse Resp B/P Pulse Ox O2 Delivery O2 Flow Rate FiO2 12/16/16 18:00 77 30 118/92 100 Mechanical Ventilator 12/16/16 17:41 40 12/16/16 16:00 97.4 Intake and Output 12/15/16 12/15/16 12/16/16 15:00 23:00 07:00 Intake Total 2032.48 ml 1996.18 ml 1088.42 ml Output Total 97 ml 1005 ml 229 ml Balance 1935.48 ml 991.18 ml 859.42 ml Exam Respiratory: other (Patient is on vent) Gastrointestinal: other (As a G-tube feeding) Extremities: other (Gangrene of the toes) Neurological: other (Obtunded not responding to touch) Results Result Diagram: 12/16/16 0520 12/16/16 0520 Results 24 hrs Laboratory Tests Test 12/16/16 05:20 12/16/16 07:00 12/16/16 07:30 White Blood Count 29.2 H Red Blood Count 2.69 L Hemoglobin 7.9 L Hematocrit 25.5 L Mean Corpuscular Volume 94.8 Mean Corpuscular Hemoglobin 29.4 Mean Corpuscular Hemoglobin Concent 31.0 L Red Cell Distribution Width 18.3 H Platelet Count 46 #L Mean Platelet Volume 14.1 H Neutrophils % 81.0 H Band Neutrophils % 12.0 H Lymphocytes % 3.0 L Monocytes % 2.0 Eosinophils % Myelocytes % 2.0 H Neutrophils # 23.7 H Lymphocytes # 0.9 Monocytes # 0.6 Eosinophils # Myelocytes # 0.6 Toxic Granulation 2+ Platelet Estimate PLT APPEAR DECREASED Erythrocyte Sedimentation Rate 25.0 H Sodium Level 137 Potassium Level 3.2 L Chloride Level 106 Carbon Dioxide Level 21 Anion Gap 13 Blood Urea Nitrogen 45 H Creatinine 1.26 H Glucose Level 64 #L Calcium Level 8.0 L Phosphorus Level 4.7 Magnesium Level 1.7 Iron Level < 10 L Total Iron Binding Capacity 95 L Percent Iron Saturation Ferritin 1680.0 H Prostate Specific Antigen < 0.1 Vitamin B12 Level > 1000 H Folate > 20.0 H Thyroid Stimulating Hormone (TSH) 9.010 H Blood Gas Specimen Source Blood arterial Arterial Blood Date Drawn 12/16/2016 7:34:57 AM Arterial Blood pH (Temp corrected) 7.354 Arterial Blood pCO2 (Temp correct) 34.6 L Arterial Blood pO2 (Temp corrected) 102.5 H Arterial Blood HCO3 18.8 L Arterial Blood Base Excess -6.1 L Arterial Blood Oxygen Saturation 97.3 Eric Test ACCEPTAB Arterial Blood Gas Puncture Site Left Radial Arterial Blood Carboxyhemoglobin 0.2 Arterial Blood Methemoglobin 0.8 Blood Gas A-a O2 Differential 142.9 H Oxyhemoglobin Percent 96.3 Total Hemoglobin 8.1 L Blood Gas Temperature 37.0 Blood Gas Respiration Rate 14.0 Blood Gas Actual Respiration Rate 19 Blood Gas Modality VENT - AC FiO2 40.0 Blood Gas Tidal Volume 500.0 Blood Gas Low PEEP Setting 0 Blood Gas Notified Whom M.D. Blood Gas Notified Time 12/16/2016 7:41:42 AM Lactic Acid Level 8.1 *H Medications Medications Current Medications Ondansetron HCl (Zofran Inj) 4 mg Q6H PRN IV NAUSEA AND/OR VOMITING; Start at 02:00 Pantoprazole (Protonix Iv) 40 mg DAILY@06 IV Last administered on 12/16/16 06: 14; Admin Dose 40 MG; Start 12/07/16 at 06:00 Amiodarone HCl (Cordarone) 400 mg DAILY GTB Last administered on 12/16/16 09:24 ; Admin Dose 400 MG; Start 12/07/16 at 09:00 Collagenase (Santyl) 1 applic DAILY TOP Last administered on 12/16/16 09:25; Admin Dose 1 APPLIC; Start 12/07/16 at 09:30 Collagenase 1 applic 1 applic PRN PRN TOP WOUND USE Last administered on 21:08; Admin Dose 1 APPLIC; Start 12/07/16 at 08:30 Fentanyl (Sublimaze) 100 ml @ 2.5 mls/hr TITRATE IV Last administered on 16:20; Admin Dose 2.5 MLS/HR; Start 12/07/16 at 14:00 Sodium Hypochlorite 1 applic 1 applic BID IRR Last administered on 12/16/16 09: 25; Admin Dose 1 APPLIC; Start 12/09/16 at 21:00 Erythromycin Lactobionate 250 mg/Sodium Chloride 100 ml @ 100 mls/hr Q6 IVPB Last administered on 12/16/16 18:06; Admin Dose 100 MLS/HR; Start 12/11/16 at 18 :00 Linezolid 300 ml @ 300 mls/hr Q12 IVPB Last administered on 12/16/16 09:25; Admin Dose 300 MLS/HR; Start 12/11/16 at 21:00 Norepinephrine 32 mg/Sodium Chloride 250 ml @ 0.46 mls/hr TITRATE IV Last administered on 12/16/16 11:47; Admin Dose 14.05 MLS/HR; Start 12/12/16 at 08:27 Phenylephrine HCl 160 mg/Sodium Chloride 500 ml @ 18.75 mls/ hr TITRATE IV Last administered on 12/16/16 15:52; Admin Dose 52.5 MLS/HR; Start 12/12/16 at 08 :29 Vasopressin 60 unit/Sodium Chloride 60 ml @ 1.2 mls/hr Q12H IV Last administered on 12/15/16 16:02; Admin Dose 1.2 MLS/HR; Start 12/12/16 at 09:00 Caspofungin 50 mg/ Sodium Chloride 250 ml @ 250 mls/hr Q24H IVPB Last administered on 12/16/16 12:00; Admin Dose 250 MLS/HR; Start 12/13/16 at 11:00 Dextrose/Sodium Chloride (D5-NS) 1,000 ml @ 50 mls/hr Q20H IV Last administered on 12/16/16 01:00; Admin Dose 50 MLS/HR; Start 12/13/16 at 06:00 Miscellaneous Information 1 ea NOTE XX ; Start 12/13/16 at 06:30 Glucose (Glutose) 15 gm Q15M PRN PO DECREASED GLUCOSE; Start 12/13/16 at 06:30 Glucose (Glutose) 22.5 gm Q15M PRN PO DECREASED GLUCOSE; Start 12/13/16 at 06:30 Dextrose (D50w Syringe) 25 ml Q15M PRN IV DECREASED GLUCOSE; Start 12/13/16 at 06:30 Dextrose (D50w Syringe) 50 ml Q15M PRN IV DECREASED GLUCOSE Last administered on 12/13/16 06:11; Admin Dose 50 ML; Start 12/13/16 at 06:30 Glucagon (Glucagen) 1 mg Q15M PRN IM DECREASED GLUCOSE; Start 12/13/16 at 06:30 Glucose 15 gm 15 gm Q15M PRN BUCCAL DECREASED GLUCOSE; Start 12/13/16 at 06:30 Dopamine HCl 800 mg/Dextrose 250 ml @ 1.89 mls/hr TITRATE IV Last administered on 12/14/16 07:28; Admin Dose 18.97 MLS/HR; Start 12/13/16 at 09:30 Metronidazole (Flagyl 500 Mg (Pmx)) 100 ml @ 100 mls/hr Q8 IVPB Last administered on 12/16/16 13:16; Admin Dose 100 MLS/HR; Start 12/13/16 at 14:00 Acetaminophen 650 mg 650 mg Q4H PRN NGT PAIN AND OR ELEVATED TEMP Last administered on 12/14/16 18:08; Admin Dose 650 MG; Start 12/14/16 at 08:30 Meropenem 100 ml @ 200 mls/hr Q12 IVPB Last administered on 12/16/16 09:25; Admin Dose 200 MLS/HR; Start 5/3/17 at 13:00 Colistimethate Sodium/Sodium Chloride (Coly-Mycin/NS) 100 ml @ 200 mls/hr Q24H IVPB Last administered on 12/16/16 09:57; Admin Dose 200 MLS/HR; Start 12/16/16 at 09:00 Eye Lubricant (Akwa Oint) 1 applic Q4 BOTH EYES Last administered on 12/16/16 16:21; Admin Dose 1 APPLIC; Start 12/15/16 at 13:00 Eye Lubricant (Artificial Tears Oph) 2 drop Q4 BOTH EYES Last administered on 16:21; Admin Dose 2 DROP; Start 12/15/16 at 13:00 CHELE CASE MD December 16, 2016 19:30
[2016-12-17] VITALS (94 sets, daily range): BP systolic 64–139; BP diastolic 34–74; PULSE 71–105; RESP 14–30
[2016-12-17] MEDS: ERYTHROMYCIN LACTOBIONATE 250 MG in SOD CHLORIDE 0.9% 100 ML IVPB SCH ×4 (00:23→17:51)
[2016-12-17] MEDS: OCULAR LUBRICANT 3.5 GM OPH OINT BOTH EYES SCH ×6 (00:24→20:34)
[2016-12-17] MEDS: ARTIFICIAL TEARS 15 ML OPH BOTH EYES SCH ×6 (00:24→20:33)
[2016-12-17] MEDS: ALBUTEROL 18 GM INHALER INH SCH ×6 (01:26→21:17)
[2016-12-17] MEDS: PHENYLephrine 160 MG in SOD CHLORIDE 0.9% 484 ML IV SCH ×3 (03:25→20:32)
[2016-12-17 04:28] LABS: ADD SCAN DIFF NO
[2016-12-17 04:37] LABS: ABNORMAL IP MESSAGE 1; BASOPHIL # 0.1 10^3/ul (0.0-0.1); BASOPHILS % 0.3 % (0.0-2.0); EOSINOPHILS % 0.1 % (0.0-7.0); HEMATOCRIT 26.8 % (42.0-52.0); HEMOGLOBIN 8.7 g/dl (14.0-18.0); LYMPHOCYTES # 0.5 10^3/ul (0.8-2.9); LYMPHOCYTES % 1.5 % (15.0-51.0); MEAN CORPUSCULAR HEMOGLOBIN 30.1 pg (29.0-33.0); MEAN CORPUSCULAR HGB CONC 32.5 g/dl (32.0-37.0); MEAN CORPUSCULAR VOLUME 92.7 fl (82.0-101.0); MEAN PLATELET VOLUME 14.1 fl (7.4-10.4); MONOCYTE # 1.1 10^3/ul (0.3-0.9); NEUTROPHIL # 32.8 10^3/ul (1.6-7.5); PLATELET COUNT 44 10^3/UL (140-415); RED BLOOD COUNT 2.89 10^6/ul (4.70-6.10); RED CELL DISTRIBUTION WIDTH 18.2 % (11.5-14.5); WHITE BLOOD COUNT 35.7 10^3/ul (4.8-10.8)
[2016-12-17 04:59] LABS: CREATININE 1.31 mg/dl (0.61-1.24); MAGNESIUM 1.7 mg/dl (1.7-2.5); POTASSIUM 3.1 mmol/L (3.5-5.1)
[2016-12-17] MEDS: DEXTROSE 50% 50 ML SYRINGE IV PRN ×3 (05:18→20:33)
[2016-12-17] MEDS: metroNIDAZOLE 500 MG/NS (PMX) 100 ML IVPB SCH ×3 (05:22→22:56)
[2016-12-17] MEDS: PANTOPRAZOLE 40 MG INJ IV SCH (05:22)
[2016-12-17] MEDS: DEXTROSE 5%-0.9% NACL 1,000 ML IV SCH ×2 (05:35→11:16)
[2016-12-17] MEDS ORDERED: POTASSIUM CHLORIDE 250 ML IVPB ONE (08:00)
--- NOTE | 2016-12-17 08:21 | PN ---
DATE: 12/17/2016 SUBJECTIVE: The patient remains critically ill, on 2 pressors, maxed out. The patient was unable t o tolerate hemodialysis yesterday. Urine output has been minimal. There have been no other acute e vents noted. No hemoptysis, hematemesis or hematochezia. OBJECTIVE: VITAL SIGNS: Blood pressure 104/56, respirations 24, pulse 78, temperature 98.6. I's AND O'S: The patient had 3 liters in, with 520 out. GENERAL: The patient is critically ill, unresponsive. HEENT: Head is normocephalic. Pupils are minimally reactive. NECK: Supple. HEART: Tachycardic. LUNGS: Showed diminished breath sounds at the base. Positive rhonchi and crackles. ABDOMEN: Soft, nontender to palpation. Positive PEG. EXTREMITIES: Negative for clubbing or cyanosis. Diffuse anasarca. The patient has noted discolorat ion of the toes. No change. DERMATOLOGIC: No rashes. MUSCULOSKELETAL: Some positive decubitus wound. NEUROLOGIC: No change in exam. MEDICATIONS: The patient's medications were reviewed. LABORATORY DATA: Shows white count 35.7, hemoglobin 8.7, hematocrit 26.8, platelet count is 44. So dium 136, potassium 3.1, chloride 108, bicarbonate 17, BUN 46, creatinine 1.31, glucose 75. Lactic acid 8.1, phosphorus 5.0. ABG was reviewed. IMAGING: Chest x-ray on 12/16/2016 showed large bilateral pleural effusions, no change. Bilateral p ulmonary airspace disease. ASSESSMENT AND PLAN: 1. Septic shock. Etiology is secondary to healthcare-associated pneumonia, decubitus wound, and ur inary tract infection. The patient remains critically ill, maxed out on 2 pressors. At this point, will continue the current treatment plan, continue IV antibiotics, pressor support, IV hydration. W ill follow up with the personal security specialist for further recommendations. 2. Ventilatory-dependent respiratory failure. Vent settings have been reviewed. ABG was reviewed. Continue to monitor. Not a weaning candidate. 3. Anuric acute kidney injury on top of chronic kidney disease. Etiology is secondary to acute tub ular necrosis. The patient is currently dialysis dependent. Will attempt hemodialysis today if mor e hemodynamically stable. 4. Hypokalemia. Will replete potassium chloride. 5. Ischemic gangrenous toes secondary to sepsis and recent pressor support. The patient was seen b y vascular surgery. No plans for intervention. Monitor closely. 6. Mineral bone disorder. Continue to monitor calcium and phosphorus levels. 7. Acute encephalopathy. Etiology is toxic metabolic. No change. Continue to observe. 8. Anemia. The patient is status post blood transfusion. Continue to monitor H and H levels. 9. Thrombocytopenia. Etiology is likely secondary to underlying sepsis and questionable low-grade DIC. Continue to monitor. Follow up with hematology. 10. Atrial fibrillation. Currently rate controlled. Continue medical management. 11. Bilateral hydronephrosis secondary to pelvic mass. Continue to monitor. The patient was seen by Dr. Kimbrough. 12. Leukocytosis secondary to sepsis. Continue the current treatment plan. 13. Lower extremity wounds. Continue wound care. 14. 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 Continue to monitor. 15. Dysphagia, status post PEG. Will resume tube feeding. Will follow up with GI for help and rec ommendations. 16. Gastrointestinal and deep venous thrombosis prophylaxis. Continue PPI and sequential leg squee zers. Please note, I spent over 40 minutes of critical care time with this patient. Dictated By: JAX ANDRADE/CHELSI Conf#: [id number] DID#: [id number]
[2016-12-17] MEDS: NORepinephrine 32 MG in SOD CHLORIDE 0.9% 218 ML IV SCH (08:48)
[2016-12-17] MEDS: VASOPRESSIN 60 UNIT in SOD CHLORIDE 0.9% 57 ML IV SCH ×3 (09:00→21:48)
--- NOTE | 2016-12-17 09:37 | CONS ---
Date/Time of Note Date/Time of Note DATE: 12/17/16 TIME: 09:34 Consult Date/Type/Reason Admit Date/Time Dec 07, 2016 at 01:03 Initial Consult Date 12/15/16 Type of Consultation: Pulmonary ICU Ordering Provider: JAX SLATER DO Subjective Patient remains stable continues multiple vasopressors Somnolent on mechanical ventilation Objective Vital Signs Date Time Temp Pulse Resp B/P Pulse Ox O2 Delivery O2 Flow Rate FiO2 12/17/16 09:00 81 12/17/16 08:15 23 12/17/16 06:45 106/52 100 12/17/16 06:00 Mechanical Ventilator 12/17/16 05:04 40 12/17/16 04:00 97.9 Intake and Output 12/16/16 12/16/16 12/17/16 15:00 23:00 07:00 Intake Total 552.40 ml 1596.15 ml 1189.90 ml Output Total 45 ml 240 ml 240 ml Balance 507.40 ml 1356.15 ml 949.90 ml Exam PHYSICAL EXAMINATION GENERAL: Elderly gentleman, intubated on mechanical ventilation, pupils minimally reactive VITAL SIGNS: see below. HEENT: Pupils equal, round, and reactive to light. Tracheostomy site clean and intact. CARDIAC: S1, S2, tachycardia. CHEST: Diminished air entry bilaterally. ABDOMEN: Mildly distended. Bowel sounds diminished no guarding rebound EXTREMITIES: No cyanosis, clubbing edema +2 NEUROLOGIC: Unable to assess Results/Medications Result Diagram: 12/17/16 0400 12/17/16 0400 Results 24 hrs Chest x-ray Extensive bilateral infiltrates and effusions Laboratory Tests Test 12/17/16 04:00 12/17/16 05:10 12/17/16 05:15 12/17/16 05:34 White Blood Count 35.7 #H Red Blood Count 2.89 L Hemoglobin 8.7 L Hematocrit 26.8 L Mean Corpuscular Volume 92.7 Mean Corpuscular Hemoglobin 30.1 Mean Corpuscular Hemoglobin Concent 32.5 Red Cell Distribution Width 18.2 H Platelet Count 44 L Mean Platelet Volume 14.1 H Neutrophils % 92.0 H Lymphocytes % 1.5 L Monocytes % 3.0 Eosinophils % 0.1 Basophils % 0.3 Nucleated Red Blood Cells % 0.0 Neutrophils # 32.8 H Lymphocytes # 0.5 L Monocytes # 1.1 H Eosinophils # 0.0 Basophils # 0.1 Nucleated Red Blood Cells # 0.0 Sodium Level 136 Potassium Level 3.1 L Chloride Level 108 Carbon Dioxide Level 17 L Anion Gap 14 Blood Urea Nitrogen 46 H Creatinine 1.31 H Glucose Level 34 #*L Calcium Level 8.0 L Phosphorus Level 5.0 H Magnesium Level 1.7 Lab Scanned Report BLOOD TRANSFUSION Bedside Glucose 35 *L 135 Test 12/17/16 05:45 Bedside Glucose 109 Medications Current Medications Ondansetron HCl (Zofran Inj) 4 mg Q6H PRN IV NAUSEA AND/OR VOMITING; Start at 02:00 Pantoprazole (Protonix Iv) 40 mg DAILY@06 IV Last administered on 12/17/16 05: 22; Admin Dose 40 MG; Start 12/07/16 at 06:00 Amiodarone HCl (Cordarone) 400 mg DAILY GTB Last administered on 12/16/16 09:24 ; Admin Dose 400 MG; Start 12/07/16 at 09:00 Collagenase (Santyl) 1 applic DAILY TOP Last administered on 12/16/16 09:25; Admin Dose 1 APPLIC; Start 12/07/16 at 09:30 Collagenase 1 applic 1 applic PRN PRN TOP WOUND USE Last administered on 21:08; Admin Dose 1 APPLIC; Start 12/07/16 at 08:30 Fentanyl (Sublimaze) 100 ml @ 2.5 mls/hr TITRATE IV Last administered on 16:20; Admin Dose 2.5 MLS/HR; Start 12/07/16 at 14:00 Sodium Hypochlorite 1 applic 1 applic BID IRR Last administered on 12/16/16 20: 23; Admin Dose 1 APPLIC; Start 12/09/16 at 21:00 Erythromycin Lactobionate 250 mg/Sodium Chloride 100 ml @ 100 mls/hr Q6 IVPB Last administered on 12/17/16 05:32; Admin Dose 100 MLS/HR; Start 12/11/16 at 18 :00 Linezolid 300 ml @ 300 mls/hr Q12 IVPB Last administered on 12/16/16 20:24; Admin Dose 300 MLS/HR; Start 12/11/16 at 21:00 Norepinephrine 32 mg/Sodium Chloride 250 ml @ 0.46 mls/hr TITRATE IV Last administered on 12/17/16 08:48; Admin Dose 14.06 MLS/HR; Start 12/12/16 at 08:27 Phenylephrine HCl 160 mg/Sodium Chloride 500 ml @ 18.75 mls/ hr TITRATE IV Last administered on 12/17/16 03:25; Admin Dose 56.25 MLS/HR; Start 12/12/16 at 08:29 Vasopressin 60 unit/Sodium Chloride 60 ml @ 1.2 mls/hr Q12H IV Last administered on 12/15/16 16:02; Admin Dose 1.2 MLS/HR; Start 12/12/16 at 09:00 Caspofungin 50 mg/ Sodium Chloride 250 ml @ 250 mls/hr Q24H IVPB Last administered on 12/16/16 12:00; Admin Dose 250 MLS/HR; Start 12/13/16 at 11:00 Dextrose/Sodium Chloride (D5-NS) 1,000 ml @ 50 mls/hr Q20H IV Last administered on 12/17/16 05:35; Admin Dose 50 MLS/HR; Start 12/13/16 at 06:00 Miscellaneous Information 1 ea NOTE XX ; Start 12/13/16 at 06:30 Glucose (Glutose) 15 gm Q15M PRN PO DECREASED GLUCOSE; Start 12/13/16 at 06:30 Glucose (Glutose) 22.5 gm Q15M PRN PO DECREASED GLUCOSE; Start 12/13/16 at 06:30 Dextrose (D50w Syringe) 25 ml Q15M PRN IV DECREASED GLUCOSE; Start 12/13/16 at 06:30 Dextrose (D50w Syringe) 50 ml Q15M PRN IV DECREASED GLUCOSE Last administered on 12/17/16 05:18; Admin Dose 50 ML; Start 12/13/16 at 06:30 Glucagon (Glucagen) 1 mg Q15M PRN IM DECREASED GLUCOSE; Start 12/13/16 at 06:30 Glucose 15 gm 15 gm Q15M PRN BUCCAL DECREASED GLUCOSE; Start 12/13/16 at 06:30 Dopamine HCl 800 mg/Dextrose 250 ml @ 1.89 mls/hr TITRATE IV Last administered on 12/14/16 07:28; Admin Dose 18.97 MLS/HR; Start 12/13/16 at 09:30 Metronidazole (Flagyl 500 Mg (Pmx)) 100 ml @ 100 mls/hr Q8 IVPB Last administered on 12/17/16 05:22; Admin Dose 100 MLS/HR; Start 12/13/16 at 14:00 Acetaminophen 650 mg 650 mg Q4H PRN NGT PAIN AND OR ELEVATED TEMP Last administered on 12/14/16 18:08; Admin Dose 650 MG; Start 12/14/16 at 08:30 Meropenem 100 ml @ 200 mls/hr Q12 IVPB Last administered on 12/16/16 20:21; Admin Dose 200 MLS/HR; Start 12/14/16 at 13:00 Colistimethate Sodium/Sodium Chloride (Coly-Mycin/NS) 100 ml @ 200 mls/hr Q24H IVPB Last administered on 12/16/16 09:57; Admin Dose 200 MLS/HR; Start 12/16/16 at 09:00 Eye Lubricant (Akwa Oint) 1 applic Q4 BOTH EYES Last administered on 12/17/16 04:38; Admin Dose 1 APPLIC; Start 12/15/16 at 13:00 Eye Lubricant 2 drop 2 drop Q4 BOTH EYES Last administered on 12/17/16 04:38; Admin Dose 2 DROP; Start 12/15/16 at 13:00 Potassium Chloride (KCl 40 MEQ/250 ML NS) 250 ml @ 62.5 mls/hr ONCE ONCE IVPB ; Start 12/17/16 at 08:00; Stop 12/17/16 at 11:59 Assessment/Plan Chief Complaint/Hosp Course Assessment 1. Septic shock 2. Healthcare associated pneumonia 3. Congestive cardiac failure 4. Hypoxemic respiratory failure requiring mechanical ventilation 5. Thrombocytopenia 6. Dysphagia 7. Multiple decubitus ulcers 8. Renal cell carcinoma Plan 1. Continue vasopressors 2. Continue mechanical ventilation 3. Tube feeding as tolerated 4. DVT GI prophylaxis 5. Palliative care consult was prognosis is very poor consider family meeting. Disposition continue ICU care Problems: AMANDEEP GARSIA MD, [facility] December 17, 2016 09:37
[2016-12-17] MEDS: AMIODARONE 200 MG TAB GTB SCH (11:12)
[2016-12-17] MEDS: SODIUM HYPOCHLORITE 0.125% 473 ML BTL IRR SCH ×2 (11:12→20:33)
[2016-12-17] MEDS: COLISTIMETHATE 75 MG in SOD CHLORIDE 0.9% 100 ML IVPB SCH (11:13)
[2016-12-17] MEDS: MEROPENEM 500 MG/100 ML (PMX) 100 ML IVPB SCH ×2 (11:15→21:02)
[2016-12-17] MEDS: LINEZOLID 600 MG/D5W (PMX) 300 ML IVPB SCH ×2 (11:15→21:02)
[2016-12-17] MEDS: COLLAGENASE 30 GM TUBE TOP SCH (11:16)
[2016-12-17] MEDS: CASPOFUNGIN 50 MG in SOD CHLORIDE 0.9% 250 ML IVPB SCH (12:58)
--- NOTE | 2016-12-17 13:01 | CONS ---
Date/Time of Note Date/Time of Note DATE: 12/17/16 TIME: 13:00 Assessment/Plan Assessment/Plan Chief Complaint/Hosp Course SUBJECTIVE: No events overnight. The patient is maxed on Levophed and Ludwin- Synephrine drip, mechanically ventilated, in no distress. MICROBIOLOGY: Blood cultures since 12/14/2016 and urine culture remain negative. Endotracheal aspirate growing pseudomonas. INDWELLINGS: Endotracheal tube, PEG, right femoral triple-lumen catheter, left femoral Schuyler catheter, left upper extremity PICC line, suprapubic catheter. ANTIMICROBIALS: The patient is on: 1. IV colistin. 2. Meropenem. 3. Flagyl. 4. Cancidas 5. Zyvox. PHYSICAL EXAMINATION: GENERAL: This is a chronically ill-appearing, elderly man who is intubated, in no distress. HEENT: Head atraumatic, normocephalic. Sclerae anicteric. Buccal mucosa dry. NECK: Supple. CHEST: Rise symmetrical. Breath sounds with bilateral rhonchi. HEART: S1, S2. ABDOMEN: Distended, bowel sounds absent. EXTREMITIES: With edema and gangrenous changes and acrocyanosis. ASSESSMENT: 1. Severe sepsis with shock and multisystem organ failure. 2. Acute respiratory failure. 3. Acute kidney failure, on hemodialysis. 4. Multiple infected decubiti, status post debridements in the past. 5. Large invasive malignant pelvic mass. 6. History of prostate and tongue carcinoma. 7. Anemia and thrombocytopenia. 8. Acute on chronic encephalopathy. 9. Bilateral extremities gangrene. PLAN: Doing poorly. Continue antibiotics. DW staff Problems: Consultation Date/Type/Reason Admit Date/Time Dec 07, 2016 at 01:03 Initial Consult Date 12/15/16 Type of Consultation: ID Referring Provider: JAX SLATER DO Exam/Review of Systems Vital Signs Vitals Vital Signs Date Time Temp Pulse Resp B/P Pulse Ox O2 Delivery O2 Flow Rate FiO2 12/17/16 11:05 79 22 99 40 12/17/16 09:30 88/43 Mechanical Ventilator 12/17/16 07:30 97.9 Intake and Output 12/16/16 12/16/16 12/17/16 15:00 23:00 07:00 Intake Total 552.40 ml 1596.15 ml 1189.90 ml Output Total 45 ml 240 ml 240 ml Balance 507.40 ml 1356.15 ml 949.90 ml Results Result Diagram: 12/17/16 0400 12/17/16 0400 Results 24 hrs Laboratory Tests Test 12/17/16 04:00 12/17/16 05:10 12/17/16 05:15 12/17/16 05:34 White Blood Count 35.7 #H Red Blood Count 2.89 L Hemoglobin 8.7 L Hematocrit 26.8 L Mean Corpuscular Volume 92.7 Mean Corpuscular Hemoglobin 30.1 Mean Corpuscular Hemoglobin Concent 32.5 Red Cell Distribution Width 18.2 H Platelet Count 44 L Mean Platelet Volume 14.1 H Neutrophils % 92.0 H Lymphocytes % 1.5 L Monocytes % 3.0 Eosinophils % 0.1 Basophils % 0.3 Nucleated Red Blood Cells % 0.0 Neutrophils # 32.8 H Lymphocytes # 0.5 L Monocytes # 1.1 H Eosinophils # 0.0 Basophils # 0.1 Nucleated Red Blood Cells # 0.0 Sodium Level 136 Potassium Level 3.1 L Chloride Level 108 Carbon Dioxide Level 17 L Anion Gap 14 Blood Urea Nitrogen 46 H Creatinine 1.31 H Glucose Level 34 #*L Calcium Level 8.0 L Phosphorus Level 5.0 H Magnesium Level 1.7 Lab Scanned Report BLOOD TRANSFUSION Bedside Glucose 35 *L 135 Test 12/17/16 05:45 12/17/16 09:20 Bedside Glucose 109 Lactic Acid Level 6.8 *H Medications Medications Current Medications Ondansetron HCl (Zofran Inj) 4 mg Q6H PRN IV NAUSEA AND/OR VOMITING; Start at 02:00 Pantoprazole (Protonix Iv) 40 mg DAILY@06 IV Last administered on 12/17/16 05: 22; Admin Dose 40 MG; Start 12/07/16 at 06:00 Amiodarone HCl (Cordarone) 400 mg DAILY GTB Last administered on 12/17/16 11:12 ; Admin Dose 400 MG; Start 12/07/16 at 09:00 Collagenase (Santyl) 1 applic DAILY TOP Last administered on 12/17/16 11:16; Admin Dose 1 APPLIC; Start 12/07/16 at 09:30 Collagenase 1 applic 1 applic PRN PRN TOP WOUND USE Last administered on 21:08; Admin Dose 1 APPLIC; Start 12/07/16 at 08:30 Fentanyl (Sublimaze) 100 ml @ 2.5 mls/hr TITRATE IV Last administered on 16:20; Admin Dose 2.5 MLS/HR; Start 12/07/16 at 14:00 Sodium Hypochlorite 1 applic 1 applic BID IRR Last administered on 12/17/16 11: 12; Admin Dose 1 APPLIC; Start 12/09/16 at 21:00 Erythromycin Lactobionate 250 mg/Sodium Chloride 100 ml @ 100 mls/hr Q6 IVPB Last administered on 12/17/16 05:32; Admin Dose 100 MLS/HR; Start 12/11/16 at 18 :00 Linezolid 300 ml @ 300 mls/hr Q12 IVPB Last administered on 12/17/16 11:15; Admin Dose 300 MLS/HR; Start 12/11/16 at 21:00 Norepinephrine 32 mg/Sodium Chloride 250 ml @ 0.46 mls/hr TITRATE IV Last administered on 12/17/16 08:48; Admin Dose 14.06 MLS/HR; Start 12/12/16 at 08:27 Phenylephrine HCl 160 mg/Sodium Chloride 500 ml @ 18.75 mls/ hr TITRATE IV Last administered on 12/17/16 11:40; Admin Dose 56.25 MLS/HR; Start 12/12/16 at 08:29 Vasopressin 60 unit/Sodium Chloride 60 ml @ 1.2 mls/hr Q12H IV Last administered on 12/15/16 16:02; Admin Dose 1.2 MLS/HR; Start 12/12/16 at 09:00 Caspofungin 50 mg/ Sodium Chloride 250 ml @ 250 mls/hr Q24H IVPB Last administered on 12/16/16 12:00; Admin Dose 250 MLS/HR; Start 12/13/16 at 11:00 Dextrose/Sodium Chloride (D5-NS) 1,000 ml @ 50 mls/hr Q20H IV Last administered on 12/17/16 11:16; Admin Dose 50 MLS/HR; Start 12/13/16 at 06:00 Miscellaneous Information 1 ea NOTE XX ; Start 12/13/16 at 06:30 Glucose (Glutose) 15 gm Q15M PRN PO DECREASED GLUCOSE; Start 12/13/16 at 06:30 Glucose (Glutose) 22.5 gm Q15M PRN PO DECREASED GLUCOSE; Start 12/13/16 at 06:30 Dextrose (D50w Syringe) 25 ml Q15M PRN IV DECREASED GLUCOSE; Start 12/13/16 at 06:30 Dextrose (D50w Syringe) 50 ml Q15M PRN IV DECREASED GLUCOSE Last administered on 12/17/16 05:18; Admin Dose 50 ML; Start 12/13/16 at 06:30 Glucagon (Glucagen) 1 mg Q15M PRN IM DECREASED GLUCOSE; Start 12/13/16 at 06:30 Glucose 15 gm 15 gm Q15M PRN BUCCAL DECREASED GLUCOSE; Start 12/13/16 at 06:30 Dopamine HCl 800 mg/Dextrose 250 ml @ 1.89 mls/hr TITRATE IV Last administered on 12/14/16 07:28; Admin Dose 18.97 MLS/HR; Start 12/13/16 at 09:30 Metronidazole (Flagyl 500 Mg (Pmx)) 100 ml @ 100 mls/hr Q8 IVPB Last administered on 12/17/16 05:22; Admin Dose 100 MLS/HR; Start 12/13/16 at 14:00 Acetaminophen 650 mg 650 mg Q4H PRN NGT PAIN AND OR ELEVATED TEMP Last administered on 12/14/16 18:08; Admin Dose 650 MG; Start 12/14/16 at 08:30 Meropenem 100 ml @ 200 mls/hr Q12 IVPB Last administered on 12/17/16 11:15; Admin Dose 200 MLS/HR; Start 12/14/16 at 13:00 Colistimethate Sodium/Sodium Chloride (Coly-Mycin/NS) 100 ml @ 200 mls/hr Q24H IVPB Last administered on 12/17/16 11:13; Admin Dose 200 MLS/HR; Start 12/16/16 at 09:00 Eye Lubricant (Akwa Oint) 1 applic Q4 BOTH EYES Last administered on 12/17/16 11:09; Admin Dose 1 APPLIC; Start 12/15/16 at 13:00 Eye Lubricant (Artificial Tears Oph) 2 drop Q4 BOTH EYES Last administered on 11:09; Admin Dose 2 DROP; Start 12/15/16 at 13:00 LUIS ARMANDO MIRANDA NP December 17, 2016 13:01
--- NOTE | 2016-12-17 13:36 | PN ---
DATE: 12/17/2016 SUBJECTIVE: The patient is on a respirator and vasopressors. He is not alert or awake and not capa ble of giving any complaints. His condition seems to be deteriorating. OBJECTIVE: VITAL SIGNS: Temperature is 97.9, the blood pressure 88/43 on a vasopressors, pulse is 79, respirat ions 22. GENERAL: He is intubated and on a respirator. The patient is very edematous. His lower extremitie s are very swollen. The scrotum is very swollen and in fact is seeping water from the swelling. Hi s toes are ischemic and mottled. LABORATORY DATA: CBC shows a white count of 35.7, hemoglobin 8.7, hematocrit 26.8. The BUN is 46, creatinine 1.31. IMPRESSION: The patient appears to be terminal and he would not tolerate the dialysis. He is very swollen and edematous. He does have a history of prostate cancer status post radiation, and pelvic mass, and also tongue cancer status post resection. From a urological standpoint, just keep the sup rapubic tube in place, elevate the scrotum. It appears that this patient's condition is deteriorati ng and he probably would not have a chance of coming out of this condition. Dictated By: SERJIO JEFFERSON/CHELSI Conf#: [id number] DID#: [id number]
--- NOTE | 2016-12-17 14:08 | CONS ---
Date/Time of Note Date/Time of Note DATE: 12/17/16 TIME: 14:06 Assessment/Plan Assessment/Plan Additional Assessment/Plan IMPRESSION: 1. Septic shock. Patient on 2 pressor support 2. Severe anemia. 3. Prerenal azotemia. 4. Prostate cancer. 5. Tongue cancer. 6. Parkinson's disease. 7. Dementia. 8. Respiratory failure. 9. Abnormal liver function tests. Patient has a multiple non-defined lesion in the liver 10. Atrial fibrillation. 11. Hydronephrosis. 12. Rectal bleeding probably from the tumor invading the rectum. 13. Gastroparesis, unable to tolerate feeding, as a part of multiorgan failure 14 gangrene of the toes 15. Multiple decubitus ulcer Plan Continue antibiotic Continue all the supportive care Continue vent support and nutrition. Will monitor WBC count and hematocrit closely. Patient prognosis remains poor. patient on erythromycin resume feeding. Patient is unable to tolerate feeding. He is not a candidate for Reglan given the history of Parkinson's disease Consultation Date/Type/Reason Admit Date/Time Dec 07, 2016 at 01:03 Initial Consult Date 12/07/16 Type of Consultation: ID Referring Provider: JAX SLATER DO 24 HR Interval Summary Subjective hx not possible: pt non-verbal, pt critical Exam/Review of Systems Vital Signs Vitals Vital Signs Date Time Temp Pulse Resp B/P Pulse Ox O2 Delivery O2 Flow Rate FiO2 12/17/16 12:00 79 12/17/16 11:05 22 99 40 12/17/16 09:30 88/43 Mechanical Ventilator 12/17/16 07:30 97.9 Intake and Output 12/16/16 12/16/16 12/17/16 15:00 23:00 07:00 Intake Total 552.40 ml 1596.15 ml 1189.90 ml Output Total 45 ml 240 ml 240 ml Balance 507.40 ml 1356.15 ml 949.90 ml Exam Constitutional: non-verbal Respiratory: normal air movement (Patient is on vent FiO2 of 40%) Cardiovascular: nl pulses, regular rate and rhythm Gastrointestinal: nl liver, spleen, non-tender, soft Extremities: other (Gangrenous toes both the feet) Neurological: unresponsive Results Result Diagram: 12/17/16 0400 12/17/16 0400 Results 24 hrs Laboratory Tests Test 12/17/16 04:00 12/17/16 05:10 12/17/16 05:15 12/17/16 05:34 White Blood Count 35.7 #H Red Blood Count 2.89 L Hemoglobin 8.7 L Hematocrit 26.8 L Mean Corpuscular Volume 92.7 Mean Corpuscular Hemoglobin 30.1 Mean Corpuscular Hemoglobin Concent 32.5 Red Cell Distribution Width 18.2 H Platelet Count 44 L Mean Platelet Volume 14.1 H Neutrophils % 92.0 H Lymphocytes % 1.5 L Monocytes % 3.0 Eosinophils % 0.1 Basophils % 0.3 Nucleated Red Blood Cells % 0.0 Neutrophils # 32.8 H Lymphocytes # 0.5 L Monocytes # 1.1 H Eosinophils # 0.0 Basophils # 0.1 Nucleated Red Blood Cells # 0.0 Sodium Level 136 Potassium Level 3.1 L Chloride Level 108 Carbon Dioxide Level 17 L Anion Gap 14 Blood Urea Nitrogen 46 H Creatinine 1.31 H Glucose Level 34 #*L Calcium Level 8.0 L Phosphorus Level 5.0 H Magnesium Level 1.7 Lab Scanned Report BLOOD TRANSFUSION Bedside Glucose 35 *L 135 Test 12/17/16 05:45 12/17/16 09:20 Bedside Glucose 109 Lactic Acid Level 6.8 *H Medications Medications Current Medications Ondansetron HCl (Zofran Inj) 4 mg Q6H PRN IV NAUSEA AND/OR VOMITING; Start at 02:00 Pantoprazole (Protonix Iv) 40 mg DAILY@06 IV Last administered on 12/17/16 05: 22; Admin Dose 40 MG; Start 12/07/16 at 06:00 Amiodarone HCl (Cordarone) 400 mg DAILY GTB Last administered on 12/17/16 11:12 ; Admin Dose 400 MG; Start 12/07/16 at 09:00 Collagenase (Santyl) 1 applic DAILY TOP Last administered on 12/17/16 11:16; Admin Dose 1 APPLIC; Start 12/07/16 at 09:30 Collagenase 1 applic 1 applic PRN PRN TOP WOUND USE Last administered on 21:08; Admin Dose 1 APPLIC; Start 12/07/16 at 08:30 Fentanyl (Sublimaze) 100 ml @ 2.5 mls/hr TITRATE IV Last administered on 16:20; Admin Dose 2.5 MLS/HR; Start 12/07/16 at 14:00 Sodium Hypochlorite 1 applic 1 applic BID IRR Last administered on 12/17/16 11: 12; Admin Dose 1 APPLIC; Start 12/09/16 at 21:00 Erythromycin Lactobionate 250 mg/Sodium Chloride 100 ml @ 100 mls/hr Q6 IVPB Last administered on 12/17/16 12:59; Admin Dose 100 MLS/HR; Start 12/11/16 at 18 :00 Linezolid 300 ml @ 300 mls/hr Q12 IVPB Last administered on 12/17/16 11:15; Admin Dose 300 MLS/HR; Start 12/11/16 at 21:00 Norepinephrine 32 mg/Sodium Chloride 250 ml @ 0.46 mls/hr TITRATE IV Last administered on 12/17/16 08:48; Admin Dose 14.06 MLS/HR; Start 12/12/16 at 08:27 Phenylephrine HCl 160 mg/Sodium Chloride 500 ml @ 18.75 mls/ hr TITRATE IV Last administered on 12/17/16 11:40; Admin Dose 56.25 MLS/HR; Start 12/12/16 at 08:29 Vasopressin 60 unit/Sodium Chloride 60 ml @ 1.2 mls/hr Q12H IV Last administered on 12/15/16 16:02; Admin Dose 1.2 MLS/HR; Start 12/12/16 at 09:00 Caspofungin 50 mg/ Sodium Chloride 250 ml @ 250 mls/hr Q24H IVPB Last administered on 12/17/16 12:58; Admin Dose 250 MLS/HR; Start 12/13/16 at 11:00 Dextrose/Sodium Chloride (D5-NS) 1,000 ml @ 50 mls/hr Q20H IV Last administered on 12/17/16 11:16; Admin Dose 50 MLS/HR; Start 12/13/16 at 06:00 Miscellaneous Information 1 ea NOTE XX ; Start 12/13/16 at 06:30 Glucose (Glutose) 15 gm Q15M PRN PO DECREASED GLUCOSE; Start 12/13/16 at 06:30 Glucose (Glutose) 22.5 gm Q15M PRN PO DECREASED GLUCOSE; Start 12/13/16 at 06:30 Dextrose (D50w Syringe) 25 ml Q15M PRN IV DECREASED GLUCOSE; Start 12/13/16 at 06:30 Dextrose (D50w Syringe) 50 ml Q15M PRN IV DECREASED GLUCOSE Last administered on 12/17/16 05:18; Admin Dose 50 ML; Start 12/13/16 at 06:30 Glucagon (Glucagen) 1 mg Q15M PRN IM DECREASED GLUCOSE; Start 12/13/16 at 06:30 Glucose 15 gm 15 gm Q15M PRN BUCCAL DECREASED GLUCOSE; Start 12/13/16 at 06:30 Dopamine HCl 800 mg/Dextrose 250 ml @ 1.89 mls/hr TITRATE IV Last administered on 12/14/16 07:28; Admin Dose 18.97 MLS/HR; Start 12/13/16 at 09:30 Metronidazole (Flagyl 500 Mg (Pmx)) 100 ml @ 100 mls/hr Q8 IVPB Last administered on 12/17/16 05:22; Admin Dose 100 MLS/HR; Start 12/13/16 at 14:00 Acetaminophen 650 mg 650 mg Q4H PRN NGT PAIN AND OR ELEVATED TEMP Last administered on 12/14/16 18:08; Admin Dose 650 MG; Start 12/14/16 at 08:30 Meropenem 100 ml @ 200 mls/hr Q12 IVPB Last administered on 12/17/16 11:15; Admin Dose 200 MLS/HR; Start 12/14/16 at 13:00 Colistimethate Sodium/Sodium Chloride (Coly-Mycin/NS) 100 ml @ 200 mls/hr Q24H IVPB Last administered on 12/17/16 11:13; Admin Dose 200 MLS/HR; Start 12/16/16 at 09:00 Eye Lubricant (Akwa Oint) 1 applic Q4 BOTH EYES Last administered on 12/17/16 12:59; Admin Dose 1 APPLIC; Start 12/15/16 at 13:00 Eye Lubricant (Artificial Tears Oph) 2 drop Q4 BOTH EYES Last administered on 12:59; Admin Dose 2 DROP; Start 12/15/16 at 13:00 CHELE CASE MD December 17, 2016 14:08
[2016-12-17] MEDS: DOPamine 800 MG in DEXTROSE 5% 230 ML IV SCH (15:44)
[2016-12-17] MEDS: SODIUM CHLORIDE IV SCH (16:52)
[2016-12-17] MEDS: DEXTROSE 10% IV SCH (16:52)
--- NOTE | 2016-12-17 23:42 | CONS ---
Date/Time of Note Date/Time of Note DATE: 12/17/16 TIME: 23:42 Assessment/Plan Assessment/Plan Chief Complaint/Hosp Course THROMBOCYTOPENIA IN PT WITH SEPTIC SHOCK , EXPOSED TO MULTIPLE MEDS , INCLUDING HEPARIN, VANCO, IMIPENEM, PROTONIX AND OTHER DIC- NEG, LDH- NOTED HIPA- P SMEAR- P MONITOR PLATELET COUNT CLOSELY TRANSFUSE PLATELET IF COUNT LESS THAN [id number] OR IF PT IS BLEEDING NO INDICATIONS FOR TRANSFUSION TODAY Severe anemia. POST PRBC COMPLEX TRANSFUSE PRN TO KEEP HB ABOVE 8 Septic shock. Patient on 3 pressor support Prerenal azotemia. Prostate cancer. Tongue cancer. Parkinson's disease. Dementia. Respiratory failure. Abnormal liver function tests. Patient has a multiple non-defined lesion in the liver Atrial fibrillation. Hydronephrosis. Rectal bleeding probably from the tumor invading the rectum. Gastroparesis Bilateral lower extremity atherosclerosis with gangrene Problems: Consultation Date/Type/Reason Admit Date/Time Dec 07, 2016 at 01:03 Initial Consult Date 12/15/16 Type of Consultation: [facility] Referring Provider: JAX SLATER DO 24 HR Interval Summary Free Text/Dictation ALL NOTED D/W RN NO BLEEDING Exam/Review of Systems Vital Signs Vitals Vital Signs Date Time Temp Pulse Resp B/P Pulse Ox O2 Delivery O2 Flow Rate FiO2 12/17/16 23:16 85 26 100 40 12/17/16 22:30 112/47 12/17/16 20:00 97.2 Mechanical Ventilator Intake and Output 12/16/16 12/16/16 12/17/16 15:00 23:00 07:00 Intake Total 552.40 ml 1596.15 ml 1189.90 ml Output Total 45 ml 240 ml 240 ml Balance 507.40 ml 1356.15 ml 949.90 ml Exam Free Text/Dictation Constitutional: No oriented Psych: No nl mood/affect Head: normocephalic Eyes: EOMI, PERRL, nl conjunctiva, No icteric ENMT: nl external ears & nose, No mucosa pink and moist Neck: jvd, No non-tender, No supple Respiratory: No congested cough, No normal air movement Cardiovascular: No edema, No regular rate and rhythm, decreased pulses LEs Gastrointestinal: non-tender, soft, No rebound or guarding Musculoskeletal: No nl extremities to inspection, No nl gait and stance Extremities: No calf tenderness, No cyanosis, LE color changes Neurological: No nl mental status, No nl speech, No nl strength Skin: rash or lesions (decubitus ulcers with necrotic debris), No diaphoresis Lymph: nontender Results Result Diagram: 12/17/16 0400 12/17/16 0400 Results 24 hrs Laboratory Tests Test 12/17/16 04:00 12/17/16 05:10 12/17/16 05:15 12/17/16 05:34 White Blood Count 35.7 #H Red Blood Count 2.89 L Hemoglobin 8.7 L Hematocrit 26.8 L Mean Corpuscular Volume 92.7 Mean Corpuscular Hemoglobin 30.1 Mean Corpuscular Hemoglobin Concent 32.5 Red Cell Distribution Width 18.2 H Platelet Count 44 L Mean Platelet Volume 14.1 H Neutrophils % 92.0 H Lymphocytes % 1.5 L Monocytes % 3.0 Eosinophils % 0.1 Basophils % 0.3 Nucleated Red Blood Cells % 0.0 Neutrophils # 32.8 H Lymphocytes # 0.5 L Monocytes # 1.1 H Eosinophils # 0.0 Basophils # 0.1 Nucleated Red Blood Cells # 0.0 Sodium Level 136 Potassium Level 3.1 L Chloride Level 108 Carbon Dioxide Level 17 L Anion Gap 14 Blood Urea Nitrogen 46 H Creatinine 1.31 H Glucose Level 34 #*L Calcium Level 8.0 L Phosphorus Level 5.0 H Magnesium Level 1.7 Lab Scanned Report BLOOD TRANSFUSION Bedside Glucose 35 *L 135 Test 12/17/16 05:45 12/17/16 09:20 12/17/16 14:14 12/17/16 15:11 Bedside Glucose 109 62 L 83 Lactic Acid Level 6.8 *H Test 12/17/16 20:27 12/17/16 20:57 Bedside Glucose 53 L 98 Medications Medications Current Medications Ondansetron HCl (Zofran Inj) 4 mg Q6H PRN IV NAUSEA AND/OR VOMITING; Start at 02:00 Pantoprazole (Protonix Iv) 40 mg DAILY@06 IV Last administered on 12/17/16 05: 22; Admin Dose 40 MG; Start 12/07/16 at 06:00 Amiodarone HCl (Cordarone) 400 mg DAILY GTB Last administered on 12/17/16 11:12 ; Admin Dose 400 MG; Start 12/07/16 at 09:00 Collagenase (Santyl) 1 applic DAILY TOP Last administered on 12/17/16 11:16; Admin Dose 1 APPLIC; Start 12/07/16 at 09:30 Collagenase 1 applic 1 applic PRN PRN TOP WOUND USE Last administered on 21:08; Admin Dose 1 APPLIC; Start 12/07/16 at 08:30 Fentanyl (Sublimaze) 100 ml @ 2.5 mls/hr TITRATE IV Last administered on 16:20; Admin Dose 2.5 MLS/HR; Start 12/07/16 at 14:00 Sodium Hypochlorite 1 applic 1 applic BID IRR Last administered on 12/17/16 20: 33; Admin Dose 1 APPLIC; Start 12/09/16 at 21:00 Erythromycin Lactobionate 250 mg/Sodium Chloride 100 ml @ 100 mls/hr Q6 IVPB Last administered on 12/17/16 17:51; Admin Dose 100 MLS/HR; Start 12/11/16 at 18 :00 Linezolid 300 ml @ 300 mls/hr Q12 IVPB Last administered on 12/17/16 21:02; Admin Dose 300 MLS/HR; Start 12/11/16 at 21:00 Norepinephrine 32 mg/Sodium Chloride 250 ml @ 0.46 mls/hr TITRATE IV Last administered on 12/17/16 08:48; Admin Dose 14.06 MLS/HR; Start 12/12/16 at 08:27 Phenylephrine HCl 160 mg/Sodium Chloride 500 ml @ 18.75 mls/ hr TITRATE IV Last administered on 12/17/16 20:32; Admin Dose 56.25 MLS/HR; Start 12/12/16 at 08:29 Vasopressin 60 unit/Sodium Chloride 60 ml @ 1.2 mls/hr Q12H IV Last administered on 12/17/16 21:48; Admin Dose 1.2 MLS/HR; Start 12/12/16 at 09:00 Caspofungin/ Sodium Chloride (Cancidas/NS) 250 ml @ 250 mls/hr Q24H IVPB Last administered on 12/17/16 12:58; Admin Dose 250 MLS/HR; Start 12/13/16 at 11:00 Miscellaneous Information 1 ea NOTE XX ; Start 12/13/16 at 06:30 Glucose (Glutose) 15 gm Q15M PRN PO DECREASED GLUCOSE; Start 12/13/16 at 06:30 Glucose (Glutose) 22.5 gm Q15M PRN PO DECREASED GLUCOSE; Start 12/13/16 at 06:30 Dextrose (D50w Syringe) 25 ml Q15M PRN IV DECREASED GLUCOSE Last administered on 12/17/16 14:28; Admin Dose 25 ML; Start 12/13/16 at 06:30 Dextrose (D50w Syringe) 50 ml Q15M PRN IV DECREASED GLUCOSE Last administered on 12/17/16 20:33; Admin Dose 50 ML; Start 12/13/16 at 06:30 Glucagon (Glucagen) 1 mg Q15M PRN IM DECREASED GLUCOSE; Start 12/13/16 at 06:30 Glucose 15 gm 15 gm Q15M PRN BUCCAL DECREASED GLUCOSE; Start 12/13/16 at 06:30 Dopamine HCl 800 mg/Dextrose 250 ml @ 1.89 mls/hr TITRATE IV Last administered on 12/17/16 15:44; Admin Dose 1.89 MLS/HR; Start 12/13/16 at 09:30 Metronidazole (Flagyl 500 Mg (Pmx)) 100 ml @ 100 mls/hr Q8 IVPB Last administered on 12/17/16 22:56; Admin Dose 100 MLS/HR; Start 12/13/16 at 14:00 Acetaminophen 650 mg 650 mg Q4H PRN NGT PAIN AND OR ELEVATED TEMP Last administered on 12/14/16 18:08; Admin Dose 650 MG; Start 12/14/16 at 08:30 Colistimethate Sodium/Sodium Chloride (Coly-Mycin/NS) 100 ml @ 200 mls/hr Q24H IVPB Last administered on 12/17/16 11:13; Admin Dose 200 MLS/HR; Start 12/16/16 at 09:00 Eye Lubricant (Akwa Oint) 1 applic Q4 BOTH EYES Last administered on 12/17/16 20:34; Admin Dose 1 APPLIC; Start 12/15/16 at 13:00 Eye Lubricant 2 drop 2 drop Q4 BOTH EYES Last administered on 12/17/16 20:33; Admin Dose 2 DROP; Start 12/15/16 at 13:00 Sodium Chloride 154 meq/Dextrose 1,000 ml @ 50 mls/hr Q20H IV Last administered on 12/17/16 16:52; Admin Dose 50 MLS/HR; Start 12/17/16 at 16:00 Meropenem (Merrem 500 Mg/ 100 ml (Pmx)) 100 ml @ 200 mls/hr Q24H IVPB Last administered on 12/17/16 21:02; Admin Dose 200 MLS/HR; Start 12/17/16 at 21:00 RENEE WONG MD December 17, 2016 23:42
[2016-12-18] VITALS (90 sets, daily range): BP systolic 85–143; BP diastolic 44–81; PULSE 70–100; RESP 19–31
[2016-12-18] MEDS: ERYTHROMYCIN LACTOBIONATE 250 MG in SOD CHLORIDE 0.9% 100 ML IVPB SCH ×4 (00:58→17:37)
[2016-12-18] MEDS: OCULAR LUBRICANT 3.5 GM OPH OINT BOTH EYES SCH ×6 (00:59→20:34)
[2016-12-18] MEDS: ARTIFICIAL TEARS 15 ML OPH BOTH EYES SCH ×6 (01:00→20:33)
[2016-12-18] MEDS: ALBUTEROL 18 GM INHALER INH SCH ×6 (01:04→21:05)
[2016-12-18] MEDS: NORepinephrine 32 MG in SOD CHLORIDE 0.9% 218 ML IV SCH ×2 (02:43→17:54)
[2016-12-18] MEDS: DEXTROSE 50% 50 ML SYRINGE IV PRN (03:39)
[2016-12-18 04:32] LABS: ADD SCAN DIFF NO
[2016-12-18] MEDS: PHENYLephrine 160 MG in SOD CHLORIDE 0.9% 484 ML IV SCH ×2 (04:34→15:21)
[2016-12-18] MEDS: VASOPRESSIN 60 UNIT in SOD CHLORIDE 0.9% 57 ML IV SCH ×2 (04:35→20:35)
[2016-12-18 04:48] LABS: CALCIUM 8.2 mg/dl (8.4-10.2); CREATININE 1.14 mg/dl (0.61-1.24); MAGNESIUM 1.6 mg/dl (1.7-2.5); POTASSIUM 3.2 mmol/L (3.5-5.1)
[2016-12-18 05:05] LABS: ABNORMAL IP MESSAGE 1; BASOPHIL # 0.1 10^3/ul (0.0-0.1); BASOPHILS % 0.3 % (0.0-2.0); EOSINOPHILS % 0.1 % (0.0-7.0); HEMATOCRIT 28.2 % (42.0-52.0); HEMOGLOBIN 8.7 g/dl (14.0-18.0); LYMPHOCYTES # 0.7 10^3/ul (0.8-2.9); MEAN CORPUSCULAR HEMOGLOBIN 28.7 pg (29.0-33.0); MEAN CORPUSCULAR HGB CONC 30.9 g/dl (32.0-37.0); MEAN CORPUSCULAR VOLUME 93.1 fl (82.0-101.0); MONOCYTE # 1.4 10^3/ul (0.3-0.9); MONOCYTES % 4.1 % (0.0-11.0); PLATELET COUNT 43 10^3/UL (140-415); RED BLOOD COUNT 3.03 10^6/ul (4.70-6.10); WHITE BLOOD COUNT 34.4 10^3/ul (4.8-10.8)
[2016-12-18 05:19] LABS: NEUTROPHILS % 90.2 % (39.0-77.0)
[2016-12-18] MEDS: FENTAnyl (DRIP) 1000 mcg/100mL 100 ML IV SCH (05:36)
[2016-12-18] MEDS: metroNIDAZOLE 500 MG/NS (PMX) 100 ML IVPB SCH ×3 (05:58→22:55)
[2016-12-18] MEDS: PANTOPRAZOLE 40 MG INJ IV SCH (05:58)
[2016-12-18] MEDS ORDERED: MAGNESIUM SULFATE 2 GM/50 ML 50 ML IVPB ONE (08:00)
[2016-12-18] MEDS ORDERED: POTASSIUM CHLORIDE 250 ML IVPB ONE (08:00)
--- NOTE | 2016-12-18 08:00 | PN ---
DATE: 12/18/2016 SUBJECTIVE: The patient remains critically ill. He was on 4 pressors overnight and is now down to 3 pressors. The patient had hemodialysis for 2 hours yesterday. The patient's is made aware o f his worsening clinical status. No other events noted. No hemoptysis, hematemesis, or hematochezi a. OBJECTIVE: VITAL SIGNS: Blood pressure 111/55, respiration 30, pulse 78, temperature is 98.6. GENERAL: The patient is critically ill, frail, weak, cachectic. HEENT: Head is normocephalic. Pupils are reactive to light. NECK: Supple. HEART: Tachycardic. LUNGS: Show diminished breath sounds at base. Less crackles. ABDOMEN: Soft, nontender to palpation. No rebound or guarding. EXTREMITIES: Negative for clubbing, cyanosis. Positive edema, diffuse anasarca. DERMATOLOGIC: No rashes. MUSCULOSKELETAL: No joint effusions. NEUROLOGIC: No change in exam. MEDICATIONS: The patient's medications have been reviewed. LABORATORY DATA: Shows sodium 138, potassium 3.2, bicarbonate 14, BUN 33, creatinine 1.14, glucose 61, magnesium 1.6. ABG was reviewed. White count 34.4, hemoglobin 8.7, platelet count is 43. ASSESSMENT AND PLAN: 1. Septic shock, etiology secondary to healthcare-associated pneumonia, decubitus wound, UTI. The patient is critically ill and is currently on 3 pressors. At this point, continue current treatment plan. Continue IV antibiotics, continue pressor support, IV fluids. We will follow up with Infect ious Disease and industrial nurse for any further recommendations. 2. Ventilatory dependent respiratory failure. Vent settings have been reviewed. ABG has been revi ewed. Continue to monitor. 3. Anuric acute kidney injury on top of chronic kidney disease, etiology secondary to acute tubular necrosis. The patient is currently dialysis dependent. The patient had dialysis yesterday for 2 h ours. We will attempt dialysis again tomorrow if the patient remains clinically stable. 4. Hypokalemia and hypomagnesemia. We will replete with potassium chloride, magnesium sulfate. 5. Ischemic gangrenous toe secondary to sepsis present on ongoing pressor support. Continue to mon itor. The patient was seen by vascular surgery. 6. Metabolic acidosis with respiratory compensation. We will continue to monitor. 7. Lactic acidosis secondary to shock. Continue current treatment plan. 8. Mineral bone disorder. Monitor calcium and phosphorus levels. 9. Acute encephalopathy. Etiology is toxic metabolic. No change. Continue to monitor. 10. Anemia. Continue to monitor hemoglobin and hematocrit levels. 11. Thrombocytopenia secondary to sepsis and also low grade DIC. Continue to observe and follow up with hematology. 12. Atrial fibrillation. Continue medical management. 13. Bilateral hydronephrosis secondary to pelvic mass. Continue to monitor. 14. Leukocytosis secondary to sepsis. Continue treatment plan. 15. Lower extremity wounds. Continue wound care. 16. History of tongue cancer with likely metastasis. Continue to monitor. 17. Dysphagia status post PEG. Continue tube feeding. 18. Hypoglycemia secondary to sepsis. Continue D10 drip. 19. Gastrointestinal and deep venous thrombosis prophylaxis. Continue PPI and sequential leg squee zers. Please note, I spent over 40 minutes of critical care time with this patient. Dictated By: JAX ANDRADE/CHELSI Conf#: [id number] DID#: [id number]
[2016-12-18] MEDS: SODIUM HYPOCHLORITE 0.125% 473 ML BTL IRR SCH ×2 (09:41→20:34)
[2016-12-18] MEDS: LINEZOLID 600 MG/D5W (PMX) 300 ML IVPB SCH ×2 (09:42→21:22)
[2016-12-18] MEDS: COLLAGENASE 30 GM TUBE TOP SCH (09:43)
--- NOTE | 2016-12-18 09:43 | PN ---
Date/Time of Note Date/Time of Note DATE: 12/18/16 TIME: 09:42 Assessment/Plan Lines/Catheters IV Catheter Type (from Nrsg): haroon cath Cruz in Place (from Nrsg): No (suprapubic catheter) Assessment/Plan Chief Complaint/Hosp Course Renal Failure SP HD cath placemenr will need permcath placement when more stable Problems: Subjective 24 Hr Interval Summary Constitutional: improved Pain Control: mild Exam/Review of Systems Vital Signs Vitals Vital Signs Date Time Temp Pulse Resp B/P Pulse Ox O2 Delivery O2 Flow Rate FiO2 12/18/16 08:00 83 12/18/16 06:15 30 111/55 100 Mechanical Ventilator 12/18/16 05:42 40 12/18/16 04:00 97.6 Intake and Output 12/17/16 12/17/16 12/18/16 15:00 23:00 07:00 Intake Total 1942.17 ml 1357.65 ml 1344.40 ml Output Total 560 ml 180 ml 465 ml Balance 1382.17 ml 1177.65 ml 879.40 ml Exam ENMT: mucosa pink and moist, nl external ears & nose, nl lips & teeth, nl nasal mucosa & septum Neck: non-tender, supple Respiratory: clear to auscultation, normal air movement Cardiovascular: nl pulses, regular rate and rhythm Gastrointestinal: nl liver, spleen, non-tender, soft Results Result Diagram: 12/18/16 [id number]/[id number] JEANA KHANNA MD December 18, 2016 09:43
[2016-12-18] MEDS: COLISTIMETHATE 75 MG in SOD CHLORIDE 0.9% 100 ML IVPB SCH (09:44)
[2016-12-18] MEDS: AMIODARONE 200 MG TAB GTB SCH (09:44)
--- NOTE | 2016-12-18 10:58 | CONS ---
Date/Time of Note Date/Time of Note DATE: 12/18/16 TIME: 10:58 Assessment/Plan Assessment/Plan Chief Complaint/Hosp Course THROMBOCYTOPENIA IN PT WITH SEPTIC SHOCK , EXPOSED TO MULTIPLE MEDS , INCLUDING HEPARIN, VANCO, IMIPENEM, PROTONIX AND OTHER DIC- NEG, LDH- NOTED HIPA- P SMEAR- P MONITOR PLATELET COUNT CLOSELY TRANSFUSE PLATELET IF COUNT LESS THAN 92060 OR IF PT IS BLEEDING NO INDICATIONS FOR TRANSFUSION TODAY Severe anemia. POST 3 U PRBC PROCEED WITH LIMITED W-UP TRANSFUSE 1 MORE U TODAY Septic shock. Patient on 3 pressor support Prerenal azotemia. Prostate cancer. Tongue cancer. Parkinson's disease. Dementia. Respiratory failure. Abnormal liver function tests. Patient has a multiple non-defined lesion in the liver Atrial fibrillation. Hydronephrosis. Rectal bleeding probably from the tumor invading the rectum. Gastroparesis Bilateral lower extremity atherosclerosis with gangrene Problems: Consultation Date/Type/Reason Admit Date/Time Dec 07, 2016 at 01:03 Initial Consult Date 12/15/16 Type of Consultation: [facility] Referring Provider: JAX SLATER DO 24 HR Interval Summary Free Text/Dictation DOING POORLY NO BLEEDING Exam/Review of Systems Vital Signs Vitals Vital Signs Date Time Temp Pulse Resp B/P Pulse Ox O2 Delivery O2 Flow Rate FiO2 12/18/16 08:00 83 12/18/16 06:15 30 111/55 100 Mechanical Ventilator 12/18/16 05:42 40 12/18/16 04:00 97.6 Intake and Output 12/17/16 12/17/16 12/18/16 15:00 23:00 07:00 Intake Total 1942.17 ml 1357.65 ml 1344.40 ml Output Total 560 ml 180 ml 465 ml Balance 1382.17 ml 1177.65 ml 879.40 ml Exam GENERAL: Elderly gentleman, intubated on mechanical ventilation, pupils minimally reactive VITAL SIGNS: see below. HEENT: Pupils equal, round, and reactive to light. Tracheostomy site clean and intact. CARDIAC: S1, S2, tachycardia. CHEST: Diminished air entry bilaterally. ABDOMEN: Mildly distended. Bowel sounds diminished no guarding rebound EXTREMITIES: No cyanosis, clubbing edema +2 NEUROLOGIC: Unable to assess Results Result Diagram: 12/18/16 0330 12/18/16 0330 Results 24 hrs Laboratory Tests Test 12/17/16 14:14 12/17/16 15:11 12/17/16 20:27 12/17/16 20:57 Bedside Glucose 62 L 83 53 L 98 Test 12/17/16 23:36 12/18/16 03:30 12/18/16 03:31 12/18/16 04:07 Bedside Glucose 88 51 L 123 White Blood Count 34.4 H Red Blood Count 3.03 L Hemoglobin 8.7 L Hematocrit 28.2 L Mean Corpuscular Volume 93.1 Mean Corpuscular Hemoglobin 28.7 L Mean Corpuscular Hemoglobin Concent 30.9 L Red Cell Distribution Width 19.0 H Platelet Count 43 L Mean Platelet Volume Neutrophils % 90.2 H Lymphocytes % 2.0 L Monocytes % 4.1 Eosinophils % 0.1 Basophils % 0.3 Nucleated Red Blood Cells % 0.0 Neutrophils # 31.0 H Lymphocytes # 0.7 L Monocytes # 1.4 H Eosinophils # 0.0 Basophils # 0.1 Nucleated Red Blood Cells # 0.0 Sodium Level 138 Potassium Level 3.2 L Chloride Level 110 Carbon Dioxide Level 14 L Anion Gap 17 H Blood Urea Nitrogen 33 #H Creatinine 1.14 Glucose Level 61 #L Calcium Level 8.2 L Phosphorus Level 4.0 Magnesium Level 1.6 L Test 12/18/16 09:47 Bedside Glucose 72 Medications Medications Current Medications Ondansetron HCl (Zofran Inj) 4 mg Q6H PRN IV NAUSEA AND/OR VOMITING; Start at 02:00 Pantoprazole (Protonix Iv) 40 mg DAILY@06 IV Last administered on 12/18/16 05: 58; Admin Dose 40 MG; Start 12/07/16 at 06:00 Amiodarone HCl (Cordarone) 400 mg DAILY GTB Last administered on 12/18/16 09:44 ; Admin Dose 400 MG; Start 12/07/16 at 09:00 Collagenase (Santyl) 1 applic DAILY TOP Last administered on 12/18/16 09:43; Admin Dose 1 APPLIC; Start 12/07/16 at 09:30 Collagenase 1 applic 1 applic PRN PRN TOP WOUND USE Last administered on 21:08; Admin Dose 1 APPLIC; Start 12/07/16 at 08:30 Fentanyl (Sublimaze) 100 ml @ 2.5 mls/hr TITRATE IV Last administered on 05:36; Admin Dose 2.5 MLS/HR; Start 12/07/16 at 14:00 Sodium Hypochlorite 1 applic 1 applic BID IRR Last administered on 12/18/16 09: 41; Admin Dose 1 APPLIC; Start 12/09/16 at 21:00 Erythromycin Lactobionate 250 mg/Sodium Chloride 100 ml @ 100 mls/hr Q6 IVPB Last administered on 12/18/16 06:47; Admin Dose 100 MLS/HR; Start 12/11/16 at 18 :00 Linezolid 300 ml @ 300 mls/hr Q12 IVPB Last administered on 12/18/16 09:42; Admin Dose 300 MLS/HR; Start 12/11/16 at 21:00 Norepinephrine 32 mg/Sodium Chloride 250 ml @ 0.46 mls/hr TITRATE IV Last administered on 12/18/16 02:43; Admin Dose 14.06 MLS/HR; Start 12/12/16 at 08:27 Phenylephrine HCl 160 mg/Sodium Chloride 500 ml @ 18.75 mls/ hr TITRATE IV Last administered on 12/18/16 04:34; Admin Dose 56.25 MLS/HR; Start 12/12/16 at 08:29 Vasopressin 60 unit/Sodium Chloride 60 ml @ 1.2 mls/hr Q12H IV Last administered on 12/18/16 04:35; Admin Dose 1.8 MLS/HR; Start 12/12/16 at 09:00 Caspofungin/ Sodium Chloride (Cancidas/NS) 250 ml @ 250 mls/hr Q24H IVPB Last administered on 12/17/16 12:58; Admin Dose 250 MLS/HR; Start 12/13/16 at 11:00 Miscellaneous Information 1 ea NOTE XX ; Start 12/13/16 at 06:30 Glucose (Glutose) 15 gm Q15M PRN PO DECREASED GLUCOSE; Start 12/13/16 at 06:30 Glucose (Glutose) 22.5 gm Q15M PRN PO DECREASED GLUCOSE; Start 12/13/16 at 06:30 Dextrose (D50w Syringe) 25 ml Q15M PRN IV DECREASED GLUCOSE Last administered on 12/17/16 14:28; Admin Dose 25 ML; Start 12/13/16 at 06:30 Dextrose (D50w Syringe) 50 ml Q15M PRN IV DECREASED GLUCOSE Last administered on 12/18/16 03:39; Admin Dose 50 ML; Start 12/13/16 at 06:30 Glucagon (Glucagen) 1 mg Q15M PRN IM DECREASED GLUCOSE; Start 12/13/16 at 06:30 Glucose 15 gm 15 gm Q15M PRN BUCCAL DECREASED GLUCOSE; Start 12/13/16 at 06:30 Dopamine HCl 800 mg/Dextrose 250 ml @ 1.89 mls/hr TITRATE IV Last administered on 12/17/16 15:44; Admin Dose 1.89 MLS/HR; Start 12/13/16 at 09:30 Metronidazole (Flagyl 500 Mg (Pmx)) 100 ml @ 100 mls/hr Q8 IVPB Last administered on 12/18/16 05:58; Admin Dose 100 MLS/HR; Start 12/13/16 at 14:00 Acetaminophen 650 mg 650 mg Q4H PRN NGT PAIN AND OR ELEVATED TEMP Last administered on 12/14/16 18:08; Admin Dose 650 MG; Start 12/14/16 at 08:30 Colistimethate Sodium/Sodium Chloride (Coly-Mycin/NS) 100 ml @ 200 mls/hr Q24H IVPB Last administered on 12/18/16 09:44; Admin Dose 200 MLS/HR; Start 12/16/16 at 09:00 Eye Lubricant (Akwa Oint) 1 applic Q4 BOTH EYES Last administered on 12/18/16 09:40; Admin Dose 1 APPLIC; Start 12/15/16 at 13:00 Eye Lubricant 2 drop 2 drop Q4 BOTH EYES Last administered on 12/18/16 09:41; Admin Dose 2 DROP; Start 12/15/16 at 13:00 Sodium Chloride 154 meq/Dextrose 1,000 ml @ 50 mls/hr Q20H IV Last administered on 12/17/16 16:52; Admin Dose 50 MLS/HR; Start 12/17/16 at 16:00 Meropenem 100 ml @ 200 mls/hr Q24H IVPB Last administered on 12/17/16 21:02; Admin Dose 200 MLS/HR; Start 12/17/16 at 21:00 Potassium Chloride (KCl 40 MEQ/250 ML NS) 250 ml @ 62.5 mls/hr ONCE ONCE IVPB Last administered on 12/18/16t 08:07; Admin Dose 62.5 MLS/HR; Start 12/18/16 at 08:00; Stop 12/18/16 at 11:59 RENEE WONG MD December 18, 2016 10:58
[2016-12-18] MEDS: DEXTROSE 10% IV SCH (11:37)
[2016-12-18] MEDS: CASPOFUNGIN 50 MG in SOD CHLORIDE 0.9% 250 ML IVPB SCH (11:37)
[2016-12-18] MEDS: SODIUM CHLORIDE IV SCH (11:37)
--- NOTE | 2016-12-18 13:33 | CONS ---
Date/Time of Note Date/Time of Note DATE: 12/18/16 TIME: 13:32 Consult Date/Type/Reason Admit Date/Time Dec 07, 2016 at 01:03 Initial Consult Date 12/15/16 Type of Consultation: pulmonary ICU Ordering Provider: JAX SLATER DO Subjective Patient continues mechanical ventilation with vasopressor support Neurologically unchanged Objective Vital Signs Date Time Temp Pulse Resp B/P Pulse Ox O2 Delivery O2 Flow Rate FiO2 12/18/16 13:00 74 25 100 40 12/18/16 09:45 108/53 Mechanical Ventilator 12/18/16 07:30 97.8 Intake and Output 12/17/16 12/17/16 12/18/16 15:00 23:00 07:00 Intake Total 1942.17 ml 1357.65 ml 1345.65 ml Output Total 560 ml 180 ml 465 ml Balance 1382.17 ml 1177.65 ml 880.65 ml Exam PHYSICAL EXAMINATION GENERAL: Elderly gentleman, intubated on mechanical ventilation, pupils minimally reactive VITAL SIGNS: see below. HEENT: Pupils equal, round, and reactive to light. Tracheostomy site clean and intact. CARDIAC: S1, S2, tachycardia. CHEST: Diminished air entry bilaterally. ABDOMEN: Mildly distended. Bowel sounds diminished no guarding rebound EXTREMITIES: No cyanosis, clubbing edema +2 NEUROLOGIC: Unable to assess Results/Medications Result Diagram: 12/18/16 0330 12/18/16 0330 Results 24 hrs Laboratory Tests Test 12/17/16 14:14 12/17/16 15:11 12/17/16 20:27 12/17/16 20:57 Bedside Glucose 62 L 83 53 L 98 Test 12/17/16 23:36 12/18/16 03:30 12/18/16 03:31 12/18/16 04:07 Bedside Glucose 88 51 L 123 White Blood Count 34.4 H Red Blood Count 3.03 L Hemoglobin 8.7 L Hematocrit 28.2 L Mean Corpuscular Volume 93.1 Mean Corpuscular Hemoglobin 28.7 L Mean Corpuscular Hemoglobin Concent 30.9 L Red Cell Distribution Width 19.0 H Platelet Count 43 L Mean Platelet Volume Neutrophils % 90.2 H Lymphocytes % 2.0 L Monocytes % 4.1 Eosinophils % 0.1 Basophils % 0.3 Nucleated Red Blood Cells % 0.0 Neutrophils # 31.0 H Lymphocytes # 0.7 L Monocytes # 1.4 H Eosinophils # 0.0 Basophils # 0.1 Nucleated Red Blood Cells # 0.0 Sodium Level 138 Potassium Level 3.2 L Chloride Level 110 Carbon Dioxide Level 14 L Anion Gap 17 H Blood Urea Nitrogen 33 #H Creatinine 1.14 Glucose Level 61 #L Calcium Level 8.2 L Phosphorus Level 4.0 Magnesium Level 1.6 L Test 12/18/16 09:47 12/18/16 12:01 Bedside Glucose 72 92 Medications Current Medications Ondansetron HCl (Zofran Inj) 4 mg Q6H PRN IV NAUSEA AND/OR VOMITING; Start at 02:00 Pantoprazole (Protonix Iv) 40 mg DAILY@06 IV Last administered on 12/18/16 05: 58; Admin Dose 40 MG; Start 12/07/16 at 06:00 Amiodarone HCl (Cordarone) 400 mg DAILY GTB Last administered on 12/18/16 09:44 ; Admin Dose 400 MG; Start 12/07/16 at 09:00 Collagenase (Santyl) 1 applic DAILY TOP Last administered on 12/18/16 09:43; Admin Dose 1 APPLIC; Start 12/07/16 at 09:30 Collagenase 1 applic 1 applic PRN PRN TOP WOUND USE Last administered on 21:08; Admin Dose 1 APPLIC; Start 12/07/16 at 08:30 Fentanyl (Sublimaze) 100 ml @ 2.5 mls/hr TITRATE IV Last administered on 05:36; Admin Dose 2.5 MLS/HR; Start 12/07/16 at 14:00 Sodium Hypochlorite 1 applic 1 applic BID IRR Last administered on 12/18/16 09: 41; Admin Dose 1 APPLIC; Start 12/09/16 at 21:00 Erythromycin Lactobionate 250 mg/Sodium Chloride 100 ml @ 100 mls/hr Q6 IVPB Last administered on 12/18/16 12:05; Admin Dose 100 MLS/HR; Start 12/11/16 at 18 :00 Linezolid 300 ml @ 300 mls/hr Q12 IVPB Last administered on 12/18/16 09:42; Admin Dose 300 MLS/HR; Start 12/11/16 at 21:00 Norepinephrine 32 mg/Sodium Chloride 250 ml @ 0.46 mls/hr TITRATE IV Last administered on 12/18/16 02:43; Admin Dose 14.06 MLS/HR; Start 12/12/16 at 08:27 Phenylephrine HCl 160 mg/Sodium Chloride 500 ml @ 18.75 mls/ hr TITRATE IV Last administered on 12/18/16 04:34; Admin Dose 56.25 MLS/HR; Start 12/12/16 at 08:29 Vasopressin 60 unit/Sodium Chloride 60 ml @ 1.2 mls/hr Q12H IV Last administered on 12/18/16 04:35; Admin Dose 1.8 MLS/HR; Start 12/12/16 at 09:00 Caspofungin/ Sodium Chloride (Cancidas/NS) 250 ml @ 250 mls/hr Q24H IVPB Last administered on 12/18/16 11:37; Admin Dose 250 MLS/HR; Start 12/13/16 at 11:00 Miscellaneous Information 1 ea NOTE XX ; Start 12/13/16 at 06:30 Glucose (Glutose) 15 gm Q15M PRN PO DECREASED GLUCOSE; Start 12/13/16 at 06:30 Glucose (Glutose) 22.5 gm Q15M PRN PO DECREASED GLUCOSE; Start 12/13/16 at 06:30 Dextrose (D50w Syringe) 25 ml Q15M PRN IV DECREASED GLUCOSE Last administered on 12/17/16 14:28; Admin Dose 25 ML; Start 12/13/16 at 06:30 Dextrose (D50w Syringe) 50 ml Q15M PRN IV DECREASED GLUCOSE Last administered on 12/18/16 03:39; Admin Dose 50 ML; Start 12/13/16 at 06:30 Glucagon (Glucagen) 1 mg Q15M PRN IM DECREASED GLUCOSE; Start 12/13/16 at 06:30 Glucose 15 gm 15 gm Q15M PRN BUCCAL DECREASED GLUCOSE; Start 12/13/16 at 06:30 Dopamine HCl 800 mg/Dextrose 250 ml @ 1.89 mls/hr TITRATE IV Last administered on 12/17/16 15:44; Admin Dose 1.89 MLS/HR; Start 12/13/16 at 09:30 Metronidazole (Flagyl 500 Mg (Pmx)) 100 ml @ 100 mls/hr Q8 IVPB Last administered on 12/18/16 05:58; Admin Dose 100 MLS/HR; Start 12/13/16 at 14:00 Acetaminophen 650 mg 650 mg Q4H PRN NGT PAIN AND OR ELEVATED TEMP Last administered on 12/14/16 18:08; Admin Dose 650 MG; Start 12/14/16 at 08:30 Colistimethate Sodium/Sodium Chloride (Coly-Mycin/NS) 100 ml @ 200 mls/hr Q24H IVPB Last administered on 12/18/16 09:44; Admin Dose 200 MLS/HR; Start 12/16/16 at 09:00 Eye Lubricant (Akwa Oint) 1 applic Q4 BOTH EYES Last administered on 12/18/16 12:05; Admin Dose 1 APPLIC; Start 12/15/16 at 13:00 Eye Lubricant 2 drop 2 drop Q4 BOTH EYES Last administered on 12/18/16 12:05; Admin Dose 2 DROP; Start 12/15/16 at 13:00 Sodium Chloride 154 meq/Dextrose 1,000 ml @ 50 mls/hr Q20H IV Last administered on 12/18/16 11:37; Admin Dose 50 MLS/HR; Start 12/17/16 at 16:00 Meropenem (Merrem 500 Mg/ 100 ml (Pmx)) 100 ml @ 200 mls/hr Q24H IVPB Last administered on 12/17/16 21:02; Admin Dose 200 MLS/HR; Start 12/17/16 at 21:00 Assessment/Plan Chief Complaint/Hosp Course Assessment 1. Septic shock refractory 2. Healthcare associated pneumonia 3. Congestive cardiac failure 4. Hypoxemic respiratory failure requiring mechanical ventilation 5. Thrombocytopenia 6. Dysphagia 7. Multiple decubitus ulcers 8. Renal cell carcinoma Plan 1. Continue vasopressors 2. Continue mechanical ventilation 3. Tube feeding as tolerated 4. DVT GI prophylaxis 5. Palliative care consult was prognosis is very poor consider family meeting. Disposition continue ICU care Appreciate palliative care input Consider bioethics meeting Problems: AMANDEEP GARSIA MD, [facility] December 18, 2016 13:33
--- NOTE | 2016-12-18 15:51 | CONS ---
Date/Time of Note Date/Time of Note DATE: 12/18/16 TIME: 15:49 Assessment/Plan Assessment/Plan Chief Complaint/Hosp Course SUBJECTIVE: No events overnight. The patient is on multiple pressors, mechanically ventilated, obtunded, in no distress. MICROBIOLOGY: Blood cultures since 12/14/2016 and urine culture remain negative. Endotracheal aspirate growing pseudomonas. INDWELLINGS: Endotracheal tube, PEG, right femoral triple-lumen catheter, left femoral Schuyler catheter, left upper extremity PICC line, suprapubic catheter. ANTIMICROBIALS: The patient is on: 1. IV colistin. 2. Meropenem. 3. Flagyl. 4. Cancidas 5. Zyvox. PHYSICAL EXAMINATION: GENERAL: This is a chronically ill-appearing, elderly man who is intubated, in no distress. HEENT: Head atraumatic, normocephalic. Sclerae anicteric. Buccal mucosa dry. NECK: Supple. CHEST: Rise symmetrical. Breath sounds with bilateral rhonchi. HEART: S1, S2. ABDOMEN: Distended, bowel sounds absent. EXTREMITIES: With edema and gangrenous changes and acrocyanosis. ASSESSMENT: 1. Severe sepsis with shock and multisystem organ failure. 2. Acute respiratory failure. 3. Acute kidney failure, on hemodialysis. 4. Multiple infected decubiti, status post debridements in the past. 5. Large invasive malignant pelvic mass. 6. History of prostate and tongue carcinoma. 7. Anemia and thrombocytopenia. 8. Acute on chronic encephalopathy. 9. Bilateral extremities gangrene. PLAN: Doing poorly. Continue antibiotics. Pending ethics committee [facility] staff Problems: Consultation Date/Type/Reason Admit Date/Time Dec 07, 2016 at 01:03 Initial Consult Date 12/15/16 Type of Consultation: ID Referring Provider: JAX SLATER DO Exam/Review of Systems Vital Signs Vitals Vital Signs Date Time Temp Pulse Resp B/P Pulse Ox O2 Delivery O2 Flow Rate FiO2 12/18/16 15:00 81 26 114/51 Mechanical Ventilator 12/18/16 14:30 100 12/18/16 13:00 40 12/18/16 12:00 97.9 Intake and Output 12/17/16 12/17/16 12/18/16 15:00 23:00 07:00 Intake Total 1942.17 ml 1357.65 ml 1345.65 ml Output Total 560 ml 180 ml 465 ml Balance 1382.17 ml 1177.65 ml 880.65 ml Results Result Diagram: 12/18/16 0330 12/18/16 0330 Results 24 hrs Laboratory Tests Test 12/17/16 20:27 12/17/16 20:57 12/17/16 23:36 12/18/16 03:30 Bedside Glucose 53 L 98 88 White Blood Count 34.4 H Red Blood Count 3.03 L Hemoglobin 8.7 L Hematocrit 28.2 L Mean Corpuscular Volume 93.1 Mean Corpuscular Hemoglobin 28.7 L Mean Corpuscular Hemoglobin Concent 30.9 L Red Cell Distribution Width 19.0 H Platelet Count 43 L Mean Platelet Volume Neutrophils % 90.2 H Lymphocytes % 2.0 L Monocytes % 4.1 Eosinophils % 0.1 Basophils % 0.3 Nucleated Red Blood Cells % 0.0 Neutrophils # 31.0 H Lymphocytes # 0.7 L Monocytes # 1.4 H Eosinophils # 0.0 Basophils # 0.1 Nucleated Red Blood Cells # 0.0 Sodium Level 138 Potassium Level 3.2 L Chloride Level 110 Carbon Dioxide Level 14 L Anion Gap 17 H Blood Urea Nitrogen 33 #H Creatinine 1.14 Glucose Level 61 #L Calcium Level 8.2 L Phosphorus Level 4.0 Magnesium Level 1.6 L Test 12/18/16 03:31 12/18/16 04:07 12/18/16 09:47 12/18/16 12:01 Bedside Glucose 51 L 123 72 92 Medications Medications Current Medications Ondansetron HCl (Zofran Inj) 4 mg Q6H PRN IV NAUSEA AND/OR VOMITING; Start at 02:00 Pantoprazole (Protonix Iv) 40 mg DAILY@06 IV Last administered on 12/18/16 05: 58; Admin Dose 40 MG; Start 12/07/16 at 06:00 Amiodarone HCl (Cordarone) 400 mg DAILY GTB Last administered on 12/18/16 09:44 ; Admin Dose 400 MG; Start 12/07/16 at 09:00 Collagenase (Santyl) 1 applic DAILY TOP Last administered on 12/18/16 09:43; Admin Dose 1 APPLIC; Start 12/07/16 at 09:30 Collagenase 1 applic 1 applic PRN PRN TOP WOUND USE Last administered on 21:08; Admin Dose 1 APPLIC; Start 12/07/16 at 08:30 Fentanyl (Sublimaze) 100 ml @ 2.5 mls/hr TITRATE IV Last administered on 05:36; Admin Dose 2.5 MLS/HR; Start 12/07/16 at 14:00 Sodium Hypochlorite 1 applic 1 applic BID IRR Last administered on 12/18/16 09: 41; Admin Dose 1 APPLIC; Start 12/09/16 at 21:00 Erythromycin Lactobionate 250 mg/Sodium Chloride 100 ml @ 100 mls/hr Q6 IVPB Last administered on 12/18/16 12:05; Admin Dose 100 MLS/HR; Start 12/11/16 at 18 :00 Linezolid 300 ml @ 300 mls/hr Q12 IVPB Last administered on 12/18/16 09:42; Admin Dose 300 MLS/HR; Start 12/11/16 at 21:00 Norepinephrine 32 mg/Sodium Chloride 250 ml @ 0.46 mls/hr TITRATE IV Last administered on 12/18/16 02:43; Admin Dose 14.06 MLS/HR; Start 12/12/16 at 08:27 Phenylephrine HCl 160 mg/Sodium Chloride 500 ml @ 18.75 mls/ hr TITRATE IV Last administered on 12/18/16 15:21; Admin Dose 33.75 MLS/HR; Start 12/12/16 at 08:29 Vasopressin 60 unit/Sodium Chloride 60 ml @ 1.2 mls/hr Q12H IV Last administered on 12/18/16 04:35; Admin Dose 1.8 MLS/HR; Start 12/12/16 at 09:00 Caspofungin/ Sodium Chloride (Cancidas/NS) 250 ml @ 250 mls/hr Q24H IVPB Last administered on 12/18/16 11:37; Admin Dose 250 MLS/HR; Start 12/13/16 at 11:00 Miscellaneous Information 1 ea NOTE XX ; Start 12/13/16 at 06:30 Glucose (Glutose) 15 gm Q15M PRN PO DECREASED GLUCOSE; Start 12/13/16 at 06:30 Glucose (Glutose) 22.5 gm Q15M PRN PO DECREASED GLUCOSE; Start 12/13/16 at 06:30 Dextrose (D50w Syringe) 25 ml Q15M PRN IV DECREASED GLUCOSE Last administered on 12/17/16 14:28; Admin Dose 25 ML; Start 12/13/16 at 06:30 Dextrose (D50w Syringe) 50 ml Q15M PRN IV DECREASED GLUCOSE Last administered on 12/18/16 03:39; Admin Dose 50 ML; Start 12/13/16 at 06:30 Glucagon (Glucagen) 1 mg Q15M PRN IM DECREASED GLUCOSE; Start 12/13/16 at 06:30 Glucose 15 gm 15 gm Q15M PRN BUCCAL DECREASED GLUCOSE; Start 12/13/16 at 06:30 Dopamine HCl 800 mg/Dextrose 250 ml @ 1.89 mls/hr TITRATE IV Last administered on 12/17/16 15:44; Admin Dose 1.89 MLS/HR; Start 12/13/16 at 09:30 Metronidazole (Flagyl 500 Mg (Pmx)) 100 ml @ 100 mls/hr Q8 IVPB Last administered on 12/18/16 15:10; Admin Dose 100 MLS/HR; Start 12/13/16 at 14:00 Acetaminophen 650 mg 650 mg Q4H PRN NGT PAIN AND OR ELEVATED TEMP Last administered on 12/14/16 18:08; Admin Dose 650 MG; Start 12/14/16 at 08:30 Colistimethate Sodium/Sodium Chloride (Coly-Mycin/NS) 100 ml @ 200 mls/hr Q24H IVPB Last administered on 12/18/16 09:44; Admin Dose 200 MLS/HR; Start 12/16/16 at 09:00 Eye Lubricant (Akwa Oint) 1 applic Q4 BOTH EYES Last administered on 12/18/16 12:05; Admin Dose 1 APPLIC; Start 12/15/16 at 13:00 Eye Lubricant 2 drop 2 drop Q4 BOTH EYES Last administered on 12/18/16 12:05; Admin Dose 2 DROP; Start 12/15/16 at 13:00 Sodium Chloride 154 meq/Dextrose 1,000 ml @ 50 mls/hr Q20H IV Last administered on 12/18/16 11:37; Admin Dose 50 MLS/HR; Start 12/17/16 at 16:00 Meropenem (Merrem 500 Mg/ 100 ml (Pmx)) 100 ml @ 200 mls/hr Q24H IVPB Last administered on 12/17/16t 21:02; Admin Dose 200 MLS/HR; Start 12/17/16 at 21:00 LUIS ARMANDO MIRANDA NP December 18, 2016 15:50
[2016-12-18 19:11] LABS: HEPARIN INDUCED PLATELET AB NEGATIVE (NEGATIVE)
[2016-12-18] MEDS: MEROPENEM 500 MG/100 ML (PMX) 100 ML IVPB SCH (20:33)
[2016-12-19] VITALS (107 sets, daily range): BP systolic 52–110; BP diastolic 18–70; PULSE 35–78; RESP 6–30
[2016-12-19] MEDS: ALBUTEROL 18 GM INHALER INH SCH ×6 (01:09→19:57)
[2016-12-19] MEDS: OCULAR LUBRICANT 3.5 GM OPH OINT BOTH EYES SCH ×6 (01:14→20:00)
[2016-12-19] MEDS: ARTIFICIAL TEARS 15 ML OPH BOTH EYES SCH ×6 (01:15→20:00)
[2016-12-19 05:06] LABS: ADD SCAN DIFF NO
[2016-12-19 05:14] LABS: ABNORMAL IP MESSAGE 1; HEMATOCRIT 26.5 % (42.0-52.0); HEMOGLOBIN 7.8 g/dl (14.0-18.0); MEAN CORPUSCULAR HEMOGLOBIN 28.8 pg (29.0-33.0); MEAN CORPUSCULAR HGB CONC 29.4 g/dl (32.0-37.0); MEAN CORPUSCULAR VOLUME 97.8 fl (82.0-101.0); MEAN PLATELET VOLUME 13.4 fl (7.4-10.4); PLATELET COUNT 35 10^3/UL (140-415); RED BLOOD COUNT 2.71 10^6/ul (4.70-6.10); RED CELL DISTRIBUTION WIDTH 19.6 % (11.5-14.5)
[2016-12-19] MEDS: PHENYLephrine 160 MG in SOD CHLORIDE 0.9% 484 ML IV SCH ×2 (05:14→18:13)
[2016-12-19] MEDS: PANTOPRAZOLE 40 MG INJ IV SCH (05:23)
[2016-12-19 05:24] LABS: POTASSIUM 3.4 mmol/L (3.5-5.1)
[2016-12-19 05:27] LABS: CREATININE 1.23 mg/dl (0.61-1.24)
[2016-12-19 05:28] LABS: CALCIUM 8.5 mg/dl (8.4-10.2); MAGNESIUM 1.8 mg/dl (1.7-2.5); PHOSPHORUS 5.1 mg/dl (2.5-4.9)
[2016-12-19] MEDS: metroNIDAZOLE 500 MG/NS (PMX) 100 ML IVPB SCH ×3 (05:31→22:59)
[2016-12-19] MEDS: DEXTROSE 50% 50 ML SYRINGE IV PRN (05:49)
[2016-12-19] MEDS: ERYTHROMYCIN LACTOBIONATE 250 MG in SOD CHLORIDE 0.9% 100 ML IVPB SCH ×5 (06:27→18:15)
[2016-12-19] MEDS ORDERED: POTASSIUM CHLORIDE 250 ML IVPB ONE (07:00)
--- NOTE | 2016-12-19 07:20 | PN ---
DATE: 12/18/2016 SUBJECTIVE: The patient is in critical condition, is on a respirator, is on vasopressors, and has m ottled and ischemic toes of the lower extremities. He is in renal failure and has scrotal edema and a suprapubic tube in place. OBJECTIVE: Temperature is 97.9, the pulse is 77, respirations 24, blood pressure 98/59. He is on a n endotracheal tube, and the suprapubic tube and drained about 100 mL in 12 hours. The scrotum is v tevin swollen, so are in the lower extremities, and he would not tolerate dialysis much because of the hypotension. The toes of the lower extremities are all ischemic and bluish and have poor circulati on. LABORATORY DATA: His CBC shows a white count of 34.4, hemoglobin 8.7, hematocrit 28.2. BUN 33, cre atinine 1.14, sodium 138, potassium 3.2, chloride 110, CO2 14. IMPRESSION: History of prostate cancer status post radiation, history of lung cancer status post finley rgery, and the patient does have a pelvic mass that is invasive, and he has multiorgan failure at th e present, and he septic with an infection on the blood culture showing Pseudomonas. He is on maxim um dose of vasopressors. In essence, he is in a very critical condition, and he most likely would n ot get out of this condition, and it appears an ethics committee is being considered to study his si tuation. Dictated By: SERJIO JEFFERSON/CHELSI Conf#: [id number] DID#: [id number]
[2016-12-19] MEDS: FENTAnyl (DRIP) 1000 mcg/100mL 100 ML IV SCH (07:41)
[2016-12-19] MEDS: DEXTROSE 10% IV SCH ×2 (08:00→11:54)
[2016-12-19] MEDS: SODIUM CHLORIDE IV SCH ×2 (08:00→11:54)
--- NOTE | 2016-12-19 08:49 | PN ---
DATE: 12/19/2016 SUBJECTIVE: The patient remains critically ill, maxed out on 3 pressors. The patient is unable to tolerate hemodialysis due to significant hemodynamic fluctuations. The patient is unable to tolerat e p.o.s and has had a tube feeding and has had episodes of hypoglycemia. Currently, the patient is on a dextrose 10 drip. Please note I spoke with the patient's , as well with palliative service and patient will be mikaela copeland towards a bioethics committee. No other events noted. OBJECTIVE: GENERAL: The patient is critically ill, cachectic. Bilateral temporal wasting. HEENT: Head is normocephalic. Pupils are minimally reactive. NECK: Supple. HEART: Tachycardic. LUNGS: Show diminished breath sounds at the base. Positive rhonchi and crackles. ABDOMEN: Soft, nontender to palpation. Positive PEG. EXTREMITIES: Positive for diffuse anasarca upper and lower extremity. GENITOURINARY: Positive scrotal edema. DERMATOLOGIC: No rashes. MUSCULOSKELETAL: Positive decubitus wound. NEUROLOGIC: No change in exam. The patient is obtunded. LABORATORY DATA: Shows sodium 140, potassium 3.4, chloride 110, BUN 34, creatinine 1.23, phosphorus 5.1. White count is 40, hemoglobin is 7.8, hematocrit of 26.7, platelet count 35. Cultures have b een reviewed. ASSESSMENT AND PLAN: 1. Septic shock. Etiology secondary to, healthcare-associated pneumonia, decubitus wound, UTI. Th e patient is critically ill, currently on 3 pressors. At this point will continue current treatment plan. Continue supportive care, continue antibiotics, continue pressor support. Continue fluids. We will follow up with infectious disease for further recommendations. 2. Ventilatory dependent respiratory failure. Vent settings have been reviewed. ABG has been revi ewed. Continue to monitor. 3. Anuric acute kidney injury on top of chronic kidney disease, etiology secondary to acute tubular necrosis. Patient has had hemodialysis. Currently, unstable for dialysis. Will continue to monit or. 4. Hypokalemia, replete potassium chloride. 5. Ischemic gangrenous toe secondary to ongoing sepsis. Continue to monitor. 6. Metabolic acidosis secondary to lactic acidosis. The patient has appropriate respiratory compen sation. Continue to monitor. 7. Mineral bone disorder. Continue to monitor calcium and phosphorus levels. 8. Acute encephalopathy, etiology is toxic metabolic. No change. 9. Anemia. Continue to monitor hemoglobin and hematocrit levels, transfuse as needed. 10. Thrombocytopenia. Continue to monitor. Follow up with hematology. 11. Atrial fibrillation, continue current medical management. 12. Bilateral hydronephrosis secondary to palpable mass. Continue to monitor. 13. Leukocytosis secondary to sepsis. Continue current treatment plan. 14. Lower extremity wounds Decubitus wound. Continue wound care. 15. History of tongue cancer with likely metastatic disease. Continue to monitor. 16. Dysphagia status percutaneous endoscopic gastrostomy. Continue tube feedings. 17. Hyperglycemia. Continue D10 drip. 18. Nutrition. Attempt to start TPN. Will discuss with pharmacy. 19. Gastrointestinal and deep venous thrombosis prophylaxis. Continue PPI, sequential leg squeezer s. Please note I spent over 40 minutes of critical care time with this patient. Dictated By: JAX ANDRADE/CHELSI Conf#: [id number] DID#: [id number]
[2016-12-19] MEDS: AMIODARONE 200 MG TAB GTB SCH (08:51)
[2016-12-19] MEDS: COLISTIMETHATE 75 MG in SOD CHLORIDE 0.9% 100 ML IVPB SCH (08:51)
[2016-12-19] MEDS: COLLAGENASE 30 GM TUBE TOP SCH (08:52)
[2016-12-19] MEDS: LINEZOLID 600 MG/D5W (PMX) 300 ML IVPB SCH ×2 (08:52→21:13)
[2016-12-19] MEDS: SODIUM HYPOCHLORITE 0.125% 473 ML BTL IRR SCH ×2 (08:53→20:00)
[2016-12-19] MEDS: VASOPRESSIN 60 UNIT in SOD CHLORIDE 0.9% 57 ML IV SCH ×2 (08:55→20:00)
[2016-12-19] MEDS: NORepinephrine 32 MG in SOD CHLORIDE 0.9% 218 ML IV SCH (08:56)
[2016-12-19] MEDS ORDERED: DEXTROSE 50% 50 ML SYRINGE IV ONE (09:30)
[2016-12-19 10:43] LABS: LYMPHOCYTES # 1.6 10^3/ul (0.8-2.9); MONOCYTE # 1.6 10^3/ul (0.3-0.9); MYELOCYTES # 0.4; NEUTROPHIL # 35.6 10^3/ul (1.6-7.5)
[2016-12-19 10:44] LABS: BURR CELLS 2+
--- NOTE | 2016-12-19 10:51 | CONS ---
Date/Time of Note Date/Time of Note DATE: 12/19/16 TIME: 10:51 Consult Date/Type/Reason Admit Date/Time Dec 07, 2016 at 01:03 Initial Consult Date 12/15/16 Type of Consultation: pulmonary ICU Ordering Provider: JAX SLATER DO Subjective Patient continues multiple vasopressors Neurologically unchanged Continues mechanical ventilation Objective Vital Signs Date Time Temp Pulse Resp B/P Pulse Ox O2 Delivery O2 Flow Rate FiO2 12/19/16 09:59 64 29 40 12/19/16 08:00 87/47 95 12/19/16 07:00 98.0 12/19/16 06:00 Mechanical Ventilator Intake and Output 12/18/16 12/18/16 12/19/16 14:59 22:59 06:59 Intake Total 1917.37 ml 1148.26 ml 1312.70 ml Output Total 150 ml 110 ml 140 ml Balance 1767.37 ml 1038.26 ml 1172.70 ml Exam Exam PHYSICAL EXAMINATION GENERAL: Elderly gentleman, intubated on mechanical ventilation, pupils minimally reactive VITAL SIGNS: see below. HEENT: Pupils equal, round, and reactive to light. Tracheostomy site clean and intact. CARDIAC: S1, S2, tachycardia. CHEST: Diminished air entry bilaterally. ABDOMEN: Mildly distended. Bowel sounds diminished no guarding rebound EXTREMITIES: No cyanosis, clubbing edema +2 NEUROLOGIC: Unable to assess Results/Medications Result Diagram: 12/19/16 0345 12/19/16 0345 Results 24 hrs Laboratory Tests Test 12/18/16 12:01 12/18/16 17:40 12/19/16 03:45 12/19/16 05:49 Bedside Glucose 92 74 67 L White Blood Count 40.0 H Red Blood Count 2.71 L Hemoglobin 7.8 L Hematocrit 26.5 L Mean Corpuscular Volume 97.8 Mean Corpuscular Hemoglobin 28.8 L Mean Corpuscular Hemoglobin Concent 29.4 L Red Cell Distribution Width 19.6 H Platelet Count 35 L Mean Platelet Volume 13.4 H Neutrophils % 89.0 H Band Neutrophils % 1.0 Lymphocytes % 4.0 L Monocytes % 4.0 Eosinophils % Myelocytes % 1.0 H Promyelocytes % 1.0 H Neutrophils # 35.6 H Lymphocytes # 1.6 Monocytes # 1.6 H Eosinophils # Myelocytes # 0.4 Promyelocytes # 0.4 Sodium Level 140 Potassium Level 3.4 L Chloride Level 110 Carbon Dioxide Level 11 L Anion Gap 22 H Blood Urea Nitrogen 34 H Creatinine 1.23 Glucose Level 55 L Calcium Level 8.5 Phosphorus Level 5.1 H Magnesium Level 1.8 Test 12/19/16 06:07 12/19/16 06:25 12/19/16 09:07 12/19/16 09:56 Bedside Glucose 97 90 66 L 67 L Test 12/19/16 10:31 Bedside Glucose 90 Medications Current Medications Ondansetron HCl (Zofran Inj) 4 mg Q6H PRN IV NAUSEA AND/OR VOMITING; Start at 02:00 Pantoprazole (Protonix Iv) 40 mg DAILY@06 IV Last administered on 12/19/16 05: 23; Admin Dose 40 MG; Start 12/07/16 at 06:00 Amiodarone HCl (Cordarone) 400 mg DAILY GTB Last administered on 12/19/16 08:51 ; Admin Dose 400 MG; Start 12/07/16 at 09:00 Collagenase (Santyl) 1 applic DAILY TOP Last administered on 12/19/16 08:52; Admin Dose 1 APPLIC; Start 12/07/16 at 09:30 Collagenase 1 applic 1 applic PRN PRN TOP WOUND USE Last administered on 21:08; Admin Dose 1 APPLIC; Start 12/07/16 at 08:30 Fentanyl (Sublimaze) 100 ml @ 2.5 mls/hr TITRATE IV Last administered on 07:41; Admin Dose 2.5 MLS/HR; Start 12/07/16 at 14:00 Sodium Hypochlorite 1 applic 1 applic BID IRR Last administered on 12/19/16 08: 53; Admin Dose 1 APPLIC; Start 12/09/16 at 21:00 Erythromycin Lactobionate 250 mg/Sodium Chloride 100 ml @ 100 mls/hr Q6 IVPB Last administered on 12/19/16 06:27; Admin Dose 100 MLS/HR; Start 12/11/16 at 18 :00 Linezolid 300 ml @ 300 mls/hr Q12 IVPB Last administered on 12/19/16 08:52; Admin Dose 300 MLS/HR; Start 12/11/16 at 21:00 Norepinephrine 32 mg/Sodium Chloride 250 ml @ 0.46 mls/hr TITRATE IV Last administered on 12/19/16 08:56; Admin Dose 14.06 MLS/HR; Start 12/12/16 at 08:27 Phenylephrine HCl 160 mg/Sodium Chloride 500 ml @ 18.75 mls/ hr TITRATE IV Last administered on 12/19/16 05:14; Admin Dose 33.75 MLS/HR; Start 12/12/16 at 08:29 Vasopressin 60 unit/Sodium Chloride 60 ml @ 1.2 mls/hr Q12H IV Last administered on 12/19/16 08:55; Admin Dose 2.4 MLS/HR; Start 12/12/16 at 09:00 Caspofungin/ Sodium Chloride (Cancidas/NS) 250 ml @ 250 mls/hr Q24H IVPB Last administered on 12/18/16 11:37; Admin Dose 250 MLS/HR; Start 12/13/16 at 11:00 Miscellaneous Information 1 ea NOTE XX ; Start 12/13/16 at 06:30 Glucose (Glutose) 15 gm Q15M PRN PO DECREASED GLUCOSE; Start 12/13/16 at 06:30 Glucose (Glutose) 22.5 gm Q15M PRN PO DECREASED GLUCOSE; Start 12/13/16 at 06:30 Dextrose (D50w Syringe) 25 ml Q15M PRN IV DECREASED GLUCOSE Last administered on 12/19/16 05:49; Admin Dose 25 ML; Start 12/13/16 at 06:30 Dextrose (D50w Syringe) 50 ml Q15M PRN IV DECREASED GLUCOSE Last administered on 12/18/16 03:39; Admin Dose 50 ML; Start 12/13/16 at 06:30 Glucagon (Glucagen) 1 mg Q15M PRN IM DECREASED GLUCOSE; Start 12/13/16 at 06:30 Glucose 15 gm 15 gm Q15M PRN BUCCAL DECREASED GLUCOSE; Start 12/13/16 at 06:30 Dopamine HCl 800 mg/Dextrose 250 ml @ 1.89 mls/hr TITRATE IV Last administered on 12/17/16 15:44; Admin Dose 1.89 MLS/HR; Start 12/13/16 at 09:30 Metronidazole (Flagyl 500 Mg (Pmx)) 100 ml @ 100 mls/hr Q8 IVPB Last administered on 12/19/16 05:31; Admin Dose 100 MLS/HR; Start 12/13/16 at 14:00 Acetaminophen 650 mg 650 mg Q4H PRN NGT PAIN AND OR ELEVATED TEMP Last administered on 12/14/16 18:08; Admin Dose 650 MG; Start 12/14/16 at 08:30 Colistimethate Sodium/Sodium Chloride (Coly-Mycin/NS) 100 ml @ 200 mls/hr Q24H IVPB Last administered on 12/19/16 08:51; Admin Dose 200 MLS/HR; Start 12/16/16 at 09:00 Eye Lubricant (Akwa Oint) 1 applic Q4 BOTH EYES Last administered on 12/19/16 08:50; Admin Dose 1 APPLIC; Start 12/15/16 at 13:00 Eye Lubricant 2 drop 2 drop Q4 BOTH EYES Last administered on 12/19/16 08:50; Admin Dose 2 DROP; Start 12/15/16 at 13:00 Sodium Chloride 154 meq/Dextrose 1,000 ml @ 50 mls/hr Q20H IV Last administered on 12/18/16 11:37; Admin Dose 50 MLS/HR; Start 12/17/16 at 16:00 Meropenem 100 ml @ 200 mls/hr Q24H IVPB Last administered on 12/18/16 20:33; Admin Dose 200 MLS/HR; Start 12/17/16 at 21:00 Potassium Chloride 250 ml @ 62.5 mls/hr ONCE ONCE IVPB Last administered on 07:07; Admin Dose 62.5 MLS/HR; Start 12/19/16 at 07:00; Stop 12/19/16 at 10:59 Sodium Chloride/ Dextrose (Nacl/D10w) 1,000 ml @ 75 mls/hr [id number] IV ; Start 12/19/16 at 11:00 Assessment/Plan Chief Complaint/Hosp Course Assessment 1. Septic shock refractory 2. Healthcare associated pneumonia 3. Congestive cardiac failure 4. Hypoxemic respiratory failure requiring mechanical ventilation 5. Thrombocytopenia 6. Dysphagia 7. Multiple decubitus ulcers 8. Renal cell carcinoma Plan 1. Continue vasopressors 2. Continue mechanical ventilation 3. Tube feeding as tolerated 4. DVT GI prophylaxis 5. Palliative care consult was prognosis is very poor consider family meeting. Disposition continue ICU care Appreciate palliative care input Consider bioethics meeting Problems: AMANDEEP GARSIA MD, FCCP December 19, 2016 10:51
[2016-12-19] MEDS ORDERED: DEXTROSE 10% IV SCH ×2 (11:00→17:30)
[2016-12-19] MEDS ORDERED: SODIUM CHLORIDE IV SCH (11:00)
--- NOTE | 2016-12-19 11:27 | PN ---
Date/Time of Note Date/Time of Note DATE: 12/19/16 TIME: 11:23 Assessment/Plan Lines/Catheters IV Catheter Type (from [facility]): KATHERINE Cruz in Place (from [facility]): Yes (SUPRAPUBIC) Assessment/Plan Chief Complaint/Hosp Course 1. Decubitus ulceration with necrotic tissue -debridement when medically stable -off loading -optimization of nutrition -vit c -local care 2. Sepsis with shock, multifactorial (le ischemia, wounds, lung, ? other) with lactic acidosis and worsening leukocytosis. -abx -supportive -wound care -pulmonary toilette -aspiration precautions 3. Dysphagia on tube feeds 4. Anemia -monitor 5. Pelvic mass, hx of tongue and prostate cancer, currently with hydronephrosis -heme/onc -urology 6. Renal insufficiency -judicious fluid management 7. Diastolic heart failure -cardiac optimization -judicious fluid management 8. Hypoxemic respiratory failure with advanced COPD and aspiration PNAs -pulmonary toilette -aspiration precautions 9. Parkinson disease/neurodegenerative disorder with dementia -medical optimization Thank you, Problems: Subjective 24 Hr Interval Summary Progressive worsening leukocytosis. Multiple pressors and hypotensive. No fevers or chills. No cough. No sz. No rash. Wounds. No vomiting. Bowel function. No bleeding. No bloating. Exam/Review of Systems Vital Signs Vitals Vital Signs Date Time Temp Pulse Resp B/P Pulse Ox O2 Delivery O2 Flow Rate FiO2 12/19/16 09:59 64 29 40 12/19/16 08:00 87/47 95 12/19/16 07:00 98.0 12/19/16 06:00 Mechanical Ventilator Intake and Output 12/18/16 12/18/16 12/19/16 14:59 22:59 06:59 Intake Total 1917.37 ml 1148.26 ml 1312.70 ml Output Total 150 ml 110 ml 140 ml Balance 1767.37 ml 1038.26 ml 1172.70 ml Exam Free Text/Dictation Constitutional: No oriented Psych: No nl mood/affect Head: normocephalic Eyes: EOMI, PERRL, nl conjunctiva, No icteric ENMT: nl external ears & nose, No mucosa pink and moist Neck: jvd, No non-tender, No supple Respiratory: No congested cough, No normal air movement Cardiovascular: No edema, No regular rate and rhythm, decreased pulses LEs Gastrointestinal: non-tender, soft, No rebound or guarding Musculoskeletal: No nl extremities to inspection, No nl gait and stance Extremities: No calf tenderness, LE ischemic changes Neurological: No nl mental status, No nl speech, No nl strength Skin: rash or lesions (decubitus ulcers with necrotic debris), No diaphoresis Lymph: nontender Results Result Diagram: 12/19/16 0345 12/19/16 0345 CHELSY CAIN MD December 19, 2016 11:27
[2016-12-19] MEDS: CASPOFUNGIN 50 MG in SOD CHLORIDE 0.9% 250 ML IVPB SCH (12:02)
--- NOTE | 2016-12-19 12:35 | PN ---
Date/Time of Note Date/Time of Note DATE: 12/19/16 TIME: 12:34 Assessment/Plan Lines/Catheters IV Catheter Type (from Nrsg): KATHERINE Cruz in Place (from Nrsg): Yes (SUPRAPUBIC) Assessment/Plan Chief Complaint/Hosp Course Renal Failure SP HD cath placemenr will need permcath placement when more stable Problems: Subjective 24 Hr Interval Summary Constitutional: improved Pain Control: mild Exam/Review of Systems Vital Signs Vitals Vital Signs Date Time Temp Pulse Resp B/P Pulse Ox O2 Delivery O2 Flow Rate FiO2 12/19/16 11:29 63 27 40 12/19/16 08:00 87/47 95 12/19/16 07:00 98.0 12/19/16 06:00 Mechanical Ventilator Intake and Output 12/18/16 12/18/16 12/19/16 15:00 23:00 07:00 Intake Total 1897.68 ml 1448.86 ml 911.53 ml Output Total 160 ml 110 ml 135 ml Balance 1737.68 ml 1338.86 ml 776.53 ml Exam Neck: non-tender, supple Respiratory: clear to auscultation, normal air movement Cardiovascular: nl pulses, regular rate and rhythm Gastrointestinal: nl liver, spleen, non-tender, soft Results Result Diagram: 12/19/16 0345 12/19/16 0345 JEANA KHANNA MD December 19, 2016 12:35
--- NOTE | 2016-12-19 13:01 | CONS ---
Date/Time of Note Date/Time of Note DATE: 12/19/16 TIME: 13:00 Assessment/Plan Assessment/Plan Chief Complaint/Hosp Course SUBJECTIVE: No events overnight. The patient is on multiple pressors, mechanically ventilated, obtunded, in no distress. MICROBIOLOGY: Blood cultures since 12/14/2016 and urine culture remain negative. Endotracheal aspirate growing pseudomonas. INDWELLINGS: Endotracheal tube, PEG, right femoral triple-lumen catheter, left femoral Schuyler catheter, left upper extremity PICC line, suprapubic catheter. ANTIMICROBIALS: The patient is on: 1. IV colistin. 2. Meropenem. 3. Flagyl. 4. Cancidas 5. Zyvox. PHYSICAL EXAMINATION: GENERAL: This is a chronically ill-appearing, elderly man who is intubated, in no distress. HEENT: Head atraumatic, normocephalic. Sclerae anicteric. Buccal mucosa dry. NECK: Supple. CHEST: Rise symmetrical. Breath sounds with bilateral rhonchi. HEART: S1, S2. ABDOMEN: Distended, bowel sounds absent. EXTREMITIES: With edema and gangrenous changes and acrocyanosis. ASSESSMENT: 1. Severe sepsis with shock and multisystem organ failure. 2. Acute respiratory failure. 3. Acute kidney failure, on hemodialysis. 4. Multiple infected decubiti, status post debridements in the past. 5. Large invasive malignant pelvic mass. 6. History of prostate and tongue carcinoma. 7. Anemia and thrombocytopenia. 8. Acute on chronic encephalopathy. 9. Bilateral extremities gangrene. PLAN: Remains unchanged, doing poorly. Continue antibiotics. Pending ethics committee [facility] staff Problems: Consultation Date/Type/Reason Admit Date/Time Dec 07, 2016 at 01:03 Initial Consult Date 12/15/16 Type of Consultation: ID Referring Provider: JAX SLATER DO Exam/Review of Systems Vital Signs Vitals Vital Signs Date Time Temp Pulse Resp B/P Pulse Ox O2 Delivery O2 Flow Rate FiO2 12/19/16 12:30 62 27 93/57 Mechanical Ventilator 12/19/16 12:00 97.5 12/19/16 11:29 40 12/19/16 09:45 92 Intake and Output 12/18/16 12/18/16 12/19/16 15:00 23:00 07:00 Intake Total 1897.68 ml 1448.86 ml 911.53 ml Output Total 160 ml 110 ml 135 ml Balance 1737.68 ml 1338.86 ml 776.53 ml Results Result Diagram: 12/19/16 0345 12/19/16 0345 Results 24 hrs Laboratory Tests Test 12/18/16 17:40 12/19/16 03:45 12/19/16 05:49 12/19/16 06:07 Bedside Glucose 74 67 L 97 White Blood Count 40.0 H Red Blood Count 2.71 L Hemoglobin 7.8 L Hematocrit 26.5 L Mean Corpuscular Volume 97.8 Mean Corpuscular Hemoglobin 28.8 L Mean Corpuscular Hemoglobin Concent 29.4 L Red Cell Distribution Width 19.6 H Platelet Count 35 L Mean Platelet Volume 13.4 H Neutrophils % 89.0 H Band Neutrophils % 1.0 Lymphocytes % 4.0 L Monocytes % 4.0 Eosinophils % Myelocytes % 1.0 H Promyelocytes % 1.0 H Neutrophils # 35.6 H Lymphocytes # 1.6 Monocytes # 1.6 H Eosinophils # Myelocytes # 0.4 Promyelocytes # 0.4 Sodium Level 140 Potassium Level 3.4 L Chloride Level 110 Carbon Dioxide Level 11 L Anion Gap 22 H Blood Urea Nitrogen 34 H Creatinine 1.23 Glucose Level 55 L Calcium Level 8.5 Phosphorus Level 5.1 H Magnesium Level 1.8 Test 12/19/16 06:25 12/19/16 09:07 12/19/16 09:56 12/19/16 10:31 Bedside Glucose 90 66 L 67 L 90 Test 12/19/16 11:16 Bedside Glucose 124 Medications Medications Current Medications Ondansetron HCl (Zofran Inj) 4 mg Q6H PRN IV NAUSEA AND/OR VOMITING; Start at 02:00 Pantoprazole (Protonix Iv) 40 mg DAILY@06 IV Last administered on 12/19/16 05: 23; Admin Dose 40 MG; Start 12/07/16 at 06:00 Amiodarone HCl (Cordarone) 400 mg DAILY GTB Last administered on 12/19/16 08:51 ; Admin Dose 400 MG; Start 12/07/16 at 09:00 Collagenase (Santyl) 1 applic DAILY TOP Last administered on 12/19/16 08:52; Admin Dose 1 APPLIC; Start 12/07/16 at 09:30 Collagenase 1 applic 1 applic PRN PRN TOP WOUND USE Last administered on 21:08; Admin Dose 1 APPLIC; Start 12/07/16 at 08:30 Fentanyl (Sublimaze) 100 ml @ 2.5 mls/hr TITRATE IV Last administered on 07:41; Admin Dose 2.5 MLS/HR; Start 12/07/16 at 14:00 Sodium Hypochlorite 1 applic 1 applic BID IRR Last administered on 12/19/16 08: 53; Admin Dose 1 APPLIC; Start 12/09/16 at 21:00 Erythromycin Lactobionate 250 mg/Sodium Chloride 100 ml @ 100 mls/hr Q6 IVPB Last administered on 12/19/16 11:56; Admin Dose 100 MLS/HR; Start 12/11/16 at 18 :00 Linezolid 300 ml @ 300 mls/hr Q12 IVPB Last administered on 12/19/16 08:52; Admin Dose 300 MLS/HR; Start 12/11/16 at 21:00 Norepinephrine 32 mg/Sodium Chloride 250 ml @ 0.46 mls/hr TITRATE IV Last administered on 12/19/16 08:56; Admin Dose 14.06 MLS/HR; Start 12/12/16 at 08:27 Phenylephrine HCl 160 mg/Sodium Chloride 500 ml @ 18.75 mls/ hr TITRATE IV Last administered on 12/19/16 05:14; Admin Dose 33.75 MLS/HR; Start 12/12/16 at 08:29 Vasopressin 60 unit/Sodium Chloride 60 ml @ 1.2 mls/hr Q12H IV Last administered on 12/19/16 08:55; Admin Dose 2.4 MLS/HR; Start 12/12/16 at 09:00 Caspofungin/ Sodium Chloride (Cancidas/NS) 250 ml @ 250 mls/hr Q24H IVPB Last administered on 12/19/16 12:02; Admin Dose 250 MLS/HR; Start 12/13/16 at 11:00 Miscellaneous Information 1 ea NOTE XX ; Start 12/13/16 at 06:30 Glucose (Glutose) 15 gm Q15M PRN PO DECREASED GLUCOSE; Start 12/13/16 at 06:30 Glucose (Glutose) 22.5 gm Q15M PRN PO DECREASED GLUCOSE; Start 12/13/16 at 06:30 Dextrose (D50w Syringe) 25 ml Q15M PRN IV DECREASED GLUCOSE Last administered on 12/19/16 05:49; Admin Dose 25 ML; Start 12/13/16 at 06:30 Dextrose (D50w Syringe) 50 ml Q15M PRN IV DECREASED GLUCOSE Last administered on 12/18/16 03:39; Admin Dose 50 ML; Start 12/13/16 at 06:30 Glucagon (Glucagen) 1 mg Q15M PRN IM DECREASED GLUCOSE; Start 12/13/16 at 06:30 Glucose 15 gm 15 gm Q15M PRN BUCCAL DECREASED GLUCOSE; Start 12/13/16 at 06:30 Dopamine HCl 800 mg/Dextrose 250 ml @ 1.89 mls/hr TITRATE IV Last administered on 12/17/16 15:44; Admin Dose 1.89 MLS/HR; Start 12/13/16 at 09:30 Metronidazole (Flagyl 500 Mg (Pmx)) 100 ml @ 100 mls/hr Q8 IVPB Last administered on 12/19/16 05:31; Admin Dose 100 MLS/HR; Start 12/13/16 at 14:00 Acetaminophen 650 mg 650 mg Q4H PRN NGT PAIN AND OR ELEVATED TEMP Last administered on 12/14/16 18:08; Admin Dose 650 MG; Start 12/14/16 at 08:30 Colistimethate Sodium/Sodium Chloride (Coly-Mycin/NS) 100 ml @ 200 mls/hr Q24H IVPB Last administered on 12/19/16 08:51; Admin Dose 200 MLS/HR; Start 12/16/16 at 09:00 Eye Lubricant (Akwa Oint) 1 applic Q4 BOTH EYES Last administered on 12/19/16 08:50; Admin Dose 1 APPLIC; Start 12/15/16 at 13:00 Eye Lubricant 2 drop 2 drop Q4 BOTH EYES Last administered on 12/19/16 08:50; Admin Dose 2 DROP; Start 12/15/16 at 13:00 Meropenem 100 ml @ 200 mls/hr Q24H IVPB Last administered on 12/18/16 20:33; Admin Dose 200 MLS/HR; Start 12/17/16 at 21:00 Sodium Chloride/ Dextrose (Nacl/D10w) 1,000 ml @ 75 mls/hr [id number] IV ; Start 12/19/16 at 11:00 LUIS ARMANDO MIRANDA NP December 19, 2016 13:01
[2016-12-19] MEDS: DOPamine 800 MG in DEXTROSE 5% 230 ML IV SCH ×2 (15:00→23:35)
[2016-12-19 15:25] LABS: AADO2 Arterial 632.8 mmHg (7.0-24.0); Allen Test ACCEPTAB; Arterial Base Excess -22.3 mmol/L (-3.0-3); Arterial COHb 0.3 % (0.0-3.0); Arterial Fraction of Oxyhgb 79.2 % (93.0-99.0); Arterial MetHb 0.8 % (0.0-1.5); Arterial Total Hemglobin 8.2 g/dl (12.0-18.0); Blood Gas Low PEEP Setting 0 cmH2O; MODE VENT - AC
[2016-12-19] MEDS ORDERED: NA BICARBONATE 8.4% 50 ML SYG ONE (16:10)
[2016-12-19] MEDS ORDERED: NA BICARBONATE 8.4% 50 ML SYG IV ONE (16:30)
[2016-12-19] MEDS ORDERED: SODIUM BICARBONATE IV SCH (17:30)
--- NOTE | 2016-12-19 18:27 | CONS ---
Date/Time of Note Date/Time of Note DATE: 12/19/16 TIME: 18:24 Assessment/Plan Assessment/Plan Additional Assessment/Plan IMPRESSION: 1. Septic shock. Patient on 2 pressor support 2. Severe anemia. 3. Prerenal azotemia. 4. Prostate cancer. 5. Tongue cancer. 6. Parkinson's disease. 7. Dementia. 8. Respiratory failure. 9. Abnormal liver function tests. Patient has a multiple non-defined lesion in the liver 10. Atrial fibrillation. 11. Hydronephrosis. 12. Rectal bleeding probably from the tumor invading the rectum. 13. Gastroparesis, unable to tolerate feeding, as a part of multiorgan failure patient is still unable to tolerate feeding 14 gangrene of the toes 15. Multiple decubitus ulcer 16. Anasarca Plan Continue antibiotic Continue all the supportive care Continue vent support and nutrition. Will monitor WBC count and hematocrit closely. Patient prognosis remains poor. patient on erythromycin resume feeding. Patient is unable to tolerate feeding. He is not a candidate for Reglan given the history of Parkinson's disease Addendum This patient was seen yesterday but I dictated notes today Consultation Date/Type/Reason Admit Date/Time Dec 07, 2016 at 01:03 Initial Consult Date 12/07/16 Type of Consultation: ID Referring Provider: JAX SLATER DO 24 HR Interval Summary Subjective hx not possible: pt non-verbal, pt critical Exam/Review of Systems Vital Signs Vitals Vital Signs Date Time Temp Pulse Resp B/P Pulse Ox O2 Delivery O2 Flow Rate FiO2 12/19/16 17:30 54 22 100 12/19/16 17:15 83/26 Mechanical Ventilator 12/19/16 16:30 87 12/19/16 12:00 97.5 Intake and Output 12/18/16 12/18/16 12/19/16 15:00 23:00 07:00 Intake Total 1897.68 ml 1448.86 ml 1064.24 ml Output Total 160 ml 110 ml 135 ml Balance 1737.68 ml 1338.86 ml 929.24 ml Exam Respiratory: other (Patient underwent) Cardiovascular: nl pulses, regular rate and rhythm Gastrointestinal: nl liver, spleen, non-tender, soft Extremities: pitting pedal edema Neurological: unresponsive Results Result Diagram: 12/19/16 0345 12/19/16 0345 Results 24 hrs Laboratory Tests Test 12/19/16 03:45 12/19/16 05:49 12/19/16 06:07 12/19/16 06:25 White Blood Count 40.0 H Red Blood Count 2.71 L Hemoglobin 7.8 L Hematocrit 26.5 L Mean Corpuscular Volume 97.8 Mean Corpuscular Hemoglobin 28.8 L Mean Corpuscular Hemoglobin Concent 29.4 L Red Cell Distribution Width 19.6 H Platelet Count 35 L Mean Platelet Volume 13.4 H Neutrophils % 89.0 H Band Neutrophils % 1.0 Lymphocytes % 4.0 L Monocytes % 4.0 Eosinophils % Myelocytes % 1.0 H Promyelocytes % 1.0 H Neutrophils # 35.6 H Lymphocytes # 1.6 Monocytes # 1.6 H Eosinophils # Myelocytes # 0.4 Promyelocytes # 0.4 Sodium Level 140 Potassium Level 3.4 L Chloride Level 110 Carbon Dioxide Level 11 L Anion Gap 22 H Blood Urea Nitrogen 34 H Creatinine 1.23 Glucose Level 55 L Calcium Level 8.5 Phosphorus Level 5.1 H Magnesium Level 1.8 Bedside Glucose 67 L 97 90 Test 12/19/16 09:07 12/19/16 09:56 12/19/16 10:31 12/19/16 11:16 Bedside Glucose 66 L 67 L 90 124 Test 12/19/16 13:08 12/19/16 14:50 12/19/16 15:24 12/19/16 16:19 Bedside Glucose 108 127 106 Blood Gas Specimen Source Blood arterial Arterial Blood Date Drawn 12/19/2016 3:15:50 PM Arterial Blood pH (Temp corrected) 7.018 *L Arterial Blood pCO2 (Temp correct) 27.8 L Arterial Blood pO2 (Temp corrected) 52.4 *L Arterial Blood HCO3 7.0 *L Arterial Blood Base Excess -22.3 L Arterial Blood Oxygen Saturation 80.1 L Eric Test ACCEPTAB Arterial Blood Gas Puncture Site Right Radial Arterial Blood Carboxyhemoglobin 0.3 Arterial Blood Methemoglobin 0.8 Blood Gas A-a O2 Differential 632.8 H Oxyhemoglobin Percent 79.2 L Total Hemoglobin 8.2 L Blood Gas Temperature 37.0 Blood Gas Respiration Rate 14.0 Blood Gas Actual Respiration Rate 24 Blood Gas Modality VENT - AC FiO2 100.0 Blood Gas Tidal Volume 500.0 Blood Gas Low PEEP Setting 0 Blood Gas Critical Value Read Back A JUANJOSE IQBAL Blood Gas Notified Whom JLD Blood Gas Notified Time 12/19/2016 3:24:36 PM Medications Medications Current Medications Ondansetron HCl (Zofran Inj) 4 mg Q6H PRN IV NAUSEA AND/OR VOMITING; Start at 02:00 Pantoprazole (Protonix Iv) 40 mg DAILY@06 IV Last administered on 12/19/16 05: 23; Admin Dose 40 MG; Start 12/07/16 at 06:00 Amiodarone HCl (Cordarone) 400 mg DAILY GTB Last administered on 12/19/16 08:51 ; Admin Dose 400 MG; Start 12/07/16 at 09:00 Collagenase (Santyl) 1 applic DAILY TOP Last administered on 12/19/16 08:52; Admin Dose 1 APPLIC; Start 12/07/16 at 09:30 Collagenase 1 applic 1 applic PRN PRN TOP WOUND USE Last administered on 21:08; Admin Dose 1 APPLIC; Start 12/07/16 at 08:30 Fentanyl (Sublimaze) 100 ml @ 2.5 mls/hr TITRATE IV Last administered on 07:41; Admin Dose 2.5 MLS/HR; Start 12/07/16 at 14:00 Sodium Hypochlorite 1 applic 1 applic BID IRR Last administered on 12/19/16 08: 53; Admin Dose 1 APPLIC; Start 12/09/16 at 21:00 Erythromycin Lactobionate 250 mg/Sodium Chloride 100 ml @ 100 mls/hr Q6 IVPB Last administered on 12/19/16 18:15; Admin Dose 100 MLS/HR; Start 12/11/16 at 18 :00 Linezolid 300 ml @ 300 mls/hr Q12 IVPB Last administered on 12/19/16 08:52; Admin Dose 300 MLS/HR; Start 12/11/16 at 21:00 Norepinephrine 32 mg/Sodium Chloride 250 ml @ 0.46 mls/hr TITRATE IV Last administered on 12/19/16 08:56; Admin Dose 14.06 MLS/HR; Start 12/12/16 at 08:27 Phenylephrine HCl 160 mg/Sodium Chloride 500 ml @ 18.75 mls/ hr TITRATE IV Last administered on 12/19/16 18:13; Admin Dose 56.25 MLS/HR; Start 12/12/16 at 08:29 Vasopressin 60 unit/Sodium Chloride 60 ml @ 1.2 mls/hr Q12H IV Last administered on 12/19/16 08:55; Admin Dose 2.4 MLS/HR; Start 12/12/16 at 09:00 Caspofungin/ Sodium Chloride (Cancidas/NS) 250 ml @ 250 mls/hr Q24H IVPB Last administered on 12/19/16 12:02; Admin Dose 250 MLS/HR; Start 12/13/16 at 11:00 Miscellaneous Information 1 ea NOTE XX ; Start 12/13/16 at 06:30 Glucose (Glutose) 15 gm Q15M PRN PO DECREASED GLUCOSE; Start 12/13/16 at 06:30 Glucose (Glutose) 22.5 gm Q15M PRN PO DECREASED GLUCOSE; Start 12/13/16 at 06:30 Dextrose (D50w Syringe) 25 ml Q15M PRN IV DECREASED GLUCOSE Last administered on 12/19/16 05:49; Admin Dose 25 ML; Start 12/13/16 at 06:30 Dextrose (D50w Syringe) 50 ml Q15M PRN IV DECREASED GLUCOSE Last administered on 12/18/16 03:39; Admin Dose 50 ML; Start 12/13/16 at 06:30 Glucagon (Glucagen) 1 mg Q15M PRN IM DECREASED GLUCOSE; Start 12/13/16 at 06:30 Glucose 15 gm 15 gm Q15M PRN BUCCAL DECREASED GLUCOSE; Start 12/13/16 at 06:30 Dopamine HCl 800 mg/Dextrose 250 ml @ 1.89 mls/hr TITRATE IV Last administered on 12/17/16 15:44; Admin Dose 1.89 MLS/HR; Start 12/13/16 at 09:30 Metronidazole (Flagyl 500 Mg (Pmx)) 100 ml @ 100 mls/hr Q8 IVPB Last administered on 12/19/16 15:07; Admin Dose 100 MLS/HR; Start 12/13/16 at 14:00 Acetaminophen 650 mg 650 mg Q4H PRN NGT PAIN AND OR ELEVATED TEMP Last administered on 12/14/16 18:08; Admin Dose 650 MG; Start 12/14/16 at 08:30 Colistimethate Sodium/Sodium Chloride (Coly-Mycin/NS) 100 ml @ 200 mls/hr Q24H IVPB Last administered on 12/19/16 08:51; Admin Dose 200 MLS/HR; Start 12/16/16 at 09:00 Eye Lubricant (Akwa Oint) 1 applic Q4 BOTH EYES Last administered on 12/19/16 17:00; Admin Dose 1 APPLIC; Start 12/15/16 at 13:00 Eye Lubricant 2 drop 2 drop Q4 BOTH EYES Last administered on 12/19/16 17:00; Admin Dose 2 DROP; Start 12/15/16 at 13:00 Meropenem 100 ml @ 200 mls/hr Q24H IVPB Last administered on 12/18/16 20:33; Admin Dose 200 MLS/HR; Start 12/17/16 at 21:00 Sodium Bicarbonate/ Dextrose (Na Bicarb/D10w) 1,150 ml @ 75 mls/hr [id number] IV Last administered on 12/19/16 16:56; Admin Dose 75 MLS/HR; Start 12/19/16 at 17: 30 CHELE CASE MD December 19, 2016 18:27
--- NOTE | 2016-12-19 18:28 | CONS ---
Date/Time of Note Date/Time of Note DATE: 12/19/16 TIME: 18:27 Assessment/Plan Assessment/Plan Additional Assessment/Plan Additional Assessment/Plan IMPRESSION: 1. Septic shock. Patient on 2 pressor support 2. Severe anemia. 3. Prerenal azotemia. 4. Prostate cancer. 5. Tongue cancer. 6. Parkinson's disease. 7. Dementia. 8. Respiratory failure. 9. Abnormal liver function tests. Patient has a multiple non-defined lesion in the liver 10. Atrial fibrillation. 11. Hydronephrosis. 12. Rectal bleeding probably from the tumor invading the rectum. 13. Gastroparesis, unable to tolerate feeding, as a part of multiorgan failure patient is still unable to tolerate feeding 14 gangrene of the toes 15. Multiple decubitus ulcer 16. Anasarca Plan Continue antibiotic Continue all the supportive care Continue vent support and nutrition. Will monitor WBC count and hematocrit closely. Patient prognosis remains poor. patient on erythromycin resume feeding. Patient is unable to tolerate feeding. He is not a candidate for Reglan given the history of Parkinson's disease discussed with the and she wants to resume feeding, will start feeding at 10 cc/h Consultation Date/Type/Reason Admit Date/Time Dec 07, 2016 at 01:03 Initial Consult Date 12/07/16 Type of Consultation: ID Referring Provider: JAX SLATER DO 24 HR Interval Summary Subjective hx not possible: pt non-verbal, pt critical Exam/Review of Systems Vital Signs Vitals Vital Signs Date Time Temp Pulse Resp B/P Pulse Ox O2 Delivery O2 Flow Rate FiO2 12/19/16 17:30 54 22 100 12/19/16 17:15 83/26 Mechanical Ventilator 12/19/16 16:30 87 12/19/16 12:00 97.5 Intake and Output 12/18/16 12/18/16 12/19/16 15:00 23:00 07:00 Intake Total 1897.68 ml 1448.86 ml 1064.24 ml Output Total 160 ml 110 ml 135 ml Balance 1737.68 ml 1338.86 ml 929.24 ml Exam Constitutional: alert, oriented, well developed Psych: nl mood/affect, no complaints Head: atraumatic, normocephalic Eyes: EOMI, PERRL, nl conjunctiva, nl lids, nl sclera ENMT: nl external ears & nose, nl lips & teeth, nl nasal mucosa & septum Neck: non-tender, supple Respiratory: clear to auscultation, normal air movement Cardiovascular: nl pulses, regular rate and rhythm Gastrointestinal: nl liver, spleen, non-tender, soft Musculoskeletal: nl extremities to inspection, nl gait and stance Extremities: normal pulses Neurological: INTERNET ARCHITECT II-XII intact, nl mental status, nl speech, nl strength Skin: nl turgor, No rash or lesions Lymph: nl lymph nodes Results Result Diagram: 12/19/16 0345 12/19/16 0345 Results 24 hrs Laboratory Tests Test 12/19/16 03:45 12/19/16 05:49 12/19/16 06:07 12/19/16 06:25 White Blood Count 40.0 H Red Blood Count 2.71 L Hemoglobin 7.8 L Hematocrit 26.5 L Mean Corpuscular Volume 97.8 Mean Corpuscular Hemoglobin 28.8 L Mean Corpuscular Hemoglobin Concent 29.4 L Red Cell Distribution Width 19.6 H Platelet Count 35 L Mean Platelet Volume 13.4 H Neutrophils % 89.0 H Band Neutrophils % 1.0 Lymphocytes % 4.0 L Monocytes % 4.0 Eosinophils % Myelocytes % 1.0 H Promyelocytes % 1.0 H Neutrophils # 35.6 H Lymphocytes # 1.6 Monocytes # 1.6 H Eosinophils # Myelocytes # 0.4 Promyelocytes # 0.4 Sodium Level 140 Potassium Level 3.4 L Chloride Level 110 Carbon Dioxide Level 11 L Anion Gap 22 H Blood Urea Nitrogen 34 H Creatinine 1.23 Glucose Level 55 L Calcium Level 8.5 Phosphorus Level 5.1 H Magnesium Level 1.8 Bedside Glucose 67 L 97 90 Test 12/19/16 09:07 12/19/16 09:56 12/19/16 10:31 12/19/16 11:16 Bedside Glucose 66 L 67 L 90 124 Test 12/19/16 13:08 12/19/16 14:50 12/19/16 15:24 12/19/16 16:19 Bedside Glucose 108 127 106 Blood Gas Specimen Source Blood arterial Arterial Blood Date Drawn 12/19/2016 3:15:50 PM Arterial Blood pH (Temp corrected) 7.018 *L Arterial Blood pCO2 (Temp correct) 27.8 L Arterial Blood pO2 (Temp corrected) 52.4 *L Arterial Blood HCO3 7.0 *L Arterial Blood Base Excess -22.3 L Arterial Blood Oxygen Saturation 80.1 L Eric Test ACCEPTAB Arterial Blood Gas Puncture Site Right Radial Arterial Blood Carboxyhemoglobin 0.3 Arterial Blood Methemoglobin 0.8 Blood Gas A-a O2 Differential 632.8 H Oxyhemoglobin Percent 79.2 L Total Hemoglobin 8.2 L Blood Gas Temperature 37.0 Blood Gas Respiration Rate 14.0 Blood Gas Actual Respiration Rate 24 Blood Gas Modality VENT - AC FiO2 100.0 Blood Gas Tidal Volume 500.0 Blood Gas Low PEEP Setting 0 Blood Gas Critical Value Read Back A JUANJOSE IQBAL Blood Gas Notified Whom LEXISD Blood Gas Notified Time 12/19/2016 3:24:36 PM Medications Medications Current Medications Ondansetron HCl (Zofran Inj) 4 mg Q6H PRN IV NAUSEA AND/OR VOMITING; Start at 02:00 Pantoprazole (Protonix Iv) 40 mg DAILY@06 IV Last administered on 12/19/16 05: 23; Admin Dose 40 MG; Start 12/07/16 at 06:00 Amiodarone HCl (Cordarone) 400 mg DAILY GTB Last administered on 12/19/16 08:51 ; Admin Dose 400 MG; Start 12/07/16 at 09:00 Collagenase (Santyl) 1 applic DAILY TOP Last administered on 12/19/16 08:52; Admin Dose 1 APPLIC; Start 12/07/16 at 09:30 Collagenase 1 applic 1 applic PRN PRN TOP WOUND USE Last administered on 21:08; Admin Dose 1 APPLIC; Start 12/07/16 at 08:30 Fentanyl (Sublimaze) 100 ml @ 2.5 mls/hr TITRATE IV Last administered on 07:41; Admin Dose 2.5 MLS/HR; Start 12/07/16 at 14:00 Sodium Hypochlorite 1 applic 1 applic BID IRR Last administered on 12/19/16 08: 53; Admin Dose 1 APPLIC; Start 12/09/16 at 21:00 Erythromycin Lactobionate 250 mg/Sodium Chloride 100 ml @ 100 mls/hr Q6 IVPB Last administered on 12/19/16 18:15; Admin Dose 100 MLS/HR; Start 12/11/16 at 18 :00 Linezolid 300 ml @ 300 mls/hr Q12 IVPB Last administered on 12/19/16 08:52; Admin Dose 300 MLS/HR; Start 12/11/16 at 21:00 Norepinephrine 32 mg/Sodium Chloride 250 ml @ 0.46 mls/hr TITRATE IV Last administered on 12/19/16 08:56; Admin Dose 14.06 MLS/HR; Start 12/12/16 at 08:27 Phenylephrine HCl 160 mg/Sodium Chloride 500 ml @ 18.75 mls/ hr TITRATE IV Last administered on 12/19/16 18:13; Admin Dose 56.25 MLS/HR; Start 12/12/16 at 08:29 Vasopressin 60 unit/Sodium Chloride 60 ml @ 1.2 mls/hr Q12H IV Last administered on 12/19/16 08:55; Admin Dose 2.4 MLS/HR; Start 12/12/16 at 09:00 Caspofungin/ Sodium Chloride (Cancidas/NS) 250 ml @ 250 mls/hr Q24H IVPB Last administered on 12/19/16 12:02; Admin Dose 250 MLS/HR; Start 12/13/16 at 11:00 Miscellaneous Information 1 ea NOTE XX ; Start 12/13/16 at 06:30 Glucose (Glutose) 15 gm Q15M PRN PO DECREASED GLUCOSE; Start 12/13/16 at 06:30 Glucose (Glutose) 22.5 gm Q15M PRN PO DECREASED GLUCOSE; Start 12/13/16 at 06:30 Dextrose (D50w Syringe) 25 ml Q15M PRN IV DECREASED GLUCOSE Last administered on 12/19/16 05:49; Admin Dose 25 ML; Start 12/13/16 at 06:30 Dextrose (D50w Syringe) 50 ml Q15M PRN IV DECREASED GLUCOSE Last administered on 12/18/16 03:39; Admin Dose 50 ML; Start 12/13/16 at 06:30 Glucagon (Glucagen) 1 mg Q15M PRN IM DECREASED GLUCOSE; Start 12/13/16 at 06:30 Glucose 15 gm 15 gm Q15M PRN BUCCAL DECREASED GLUCOSE; Start 12/13/16 at 06:30 Dopamine HCl 800 mg/Dextrose 250 ml @ 1.89 mls/hr TITRATE IV Last administered on 12/17/16 15:44; Admin Dose 1.89 MLS/HR; Start 12/13/16 at 09:30 Metronidazole (Flagyl 500 Mg (Pmx)) 100 ml @ 100 mls/hr Q8 IVPB Last administered on 12/19/16 15:07; Admin Dose 100 MLS/HR; Start 12/13/16 at 14:00 Acetaminophen 650 mg 650 mg Q4H PRN NGT PAIN AND OR ELEVATED TEMP Last administered on 12/14/16 18:08; Admin Dose 650 MG; Start 12/14/16 at 08:30 Colistimethate Sodium/Sodium Chloride (Coly-Mycin/NS) 100 ml @ 200 mls/hr Q24H IVPB Last administered on 12/19/16 08:51; Admin Dose 200 MLS/HR; Start 12/16/16 at 09:00 Eye Lubricant (Akwa Oint) 1 applic Q4 BOTH EYES Last administered on 12/19/16 17:00; Admin Dose 1 APPLIC; Start 12/15/16 at 13:00 Eye Lubricant 2 drop 2 drop Q4 BOTH EYES Last administered on 12/19/16 17:00; Admin Dose 2 DROP; Start 12/15/16 at 13:00 Meropenem 100 ml @ 200 mls/hr Q24H IVPB Last administered on 12/18/16 20:33; Admin Dose 200 MLS/HR; Start 12/17/16 at 21:00 Sodium Bicarbonate/ Dextrose (Na Bicarb/D10w) 1,150 ml @ 75 mls/hr [id number] IV Last administered on 12/19/16 16:56; Admin Dose 75 MLS/HR; Start 12/19/16 at 17: 30 CHELE CASE MD December 19, 2016 18:28
[2016-12-19] MEDS ORDERED: ALBUMIN HUMAN 25% 100 ML IV ONE (20:00)
[2016-12-19] MEDS ORDERED: EPINEPHrine 4 MG in SOD CHLORIDE 0.9% 246 ML IV SCH (20:00)
[2016-12-19] MEDS: MEROPENEM 500 MG/100 ML (PMX) 100 ML IVPB SCH (20:34)
--- NOTE | 2016-12-19 21:34 | QN ---
Documentation Comment DATE OF ADMISSION: 12/07/2016 DATE OF CONSULTATION: 12/08/2016 TYPE OF CONSULTATION: Surgical. REFERRING PHYSICIAN: Cedric Varma DO CHIEF COMPLAINT: 1. Decubitus ulceration with necrotic tissue. 2. Anemia. HISTORY OF PRESENT ILLNESS: Mr. Abiel Vera is a 76-year-old male with significant comorbidities who was a resident of [facility] but transferred to ICU for hypotension and bradycardia on multiple pressors 2nd aspiration pneumonia, and necrotic wound. There were no noted fevers, chills, vomiting, cough. 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 Surgical consult is obtained for further evaluation and treatment. PAST MEDICAL HISTORY: 1. Tongue cancer. 2. 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 3. Parkinson disease. 4. Dysphagia. 5. Depression. 6. Subdural hematoma. 7. Multiple falls. 8. Meningioma. 9. Prostate cancer. 10. Hypertension. 11. Clostridium difficile. 12. Decubitus ulceration with necrotic tissue. 13. Hypotension. 14. Sepsis with shock. 15. Hypoxemic respiratory failure. 16. Aspiration pneumonia. 17. Possible diastolic heart failure. 18. Diarrhea. 19. Anemia. 20. Encephalopathy. PAST SURGICAL HISTORY: 1. TURP. 2. Tongue resection with radiation. 3. Feeding tube. 4. Biopsy of pelvic mass. 5. Excision and debridement of left ischial and sacral ulcers MEDICATIONS: As per MAR. ALLERGIES: MULTIPLE AND INCLUDE 1. PENICILLIN. 2. CODEINE. 3. HYDROCODONE. 4. MORPHINE. SOCIAL HISTORY: No current alcohol, drugs, or tobacco. FAMILY HISTORY: Noncontributory. REVIEW OF SYSTEMS: A 12-point review of systems negative unless addressed in HPI. PHYSICAL EXAMINATION: VITAL SIGNS: Vitals noted GENERAL: Anxious. HEENT: Pupils are equally reactive. No scleral icterus. NECK: Baseline rigidity. CARDIAC: S1, S2, tachy. PULMONARY: Minimally coarse bilaterally. No wheezing. ABDOMEN: Soft, nontender. Feeding tube. No rebound, no guarding. EXTREMITIES: No edema. SKIN: No rashes, no jaundice; however, decubitus ulcers with necrotic tissue. NEUROLOGIC: Awake, seems confused. LABORATORY AND RADIOGRAPHIC DATA: As per the chart and HPI. ASSESSMENT AND PLAN: Abiel Vera is a 76-year-old male with significant comorbidities. 1. Decubitus ulceration with necrotic tissue -debridement when medically stable -off loading -optimization of nutrition -vit c -local care 2. Sepsis with shock, multifactorial (le ischemia, wounds, lung, ? other) with lactic acidosis and leukocytosis. -abx -supportive -wound care -pulmonary toilette -aspiration precautions 3. Dysphagia on tube feeds 4. Anemia -monitor 5. Pelvic mass, hx of tongue and prostate cancer, currently with hydronephrosis -heme/onc -urology 6. Renal insufficiency -judicious fluid management 7. Diastolic heart failure -cardiac optimization -judicious fluid management 8. Hypoxemic respiratory failure with advanced COPD and aspiration PNAs -pulmonary toilette -aspiration precautions 9. Parkinson disease/neurodegenerative disorder with dementia -medical optimization Thank you very much for consulting me on this patient's care. Late entry 12/08 CHELSY CAIN MD December 19, 2016 21:34
--- NOTE | 2016-12-19 23:37 | CONS ---
Date/Time of Note Date/Time of Note DATE: 12/19/16 TIME: 23:34 Assessment/Plan Assessment/Plan Chief Complaint/Hosp Course THROMBOCYTOPENIA IN PT WITH SEPTIC SHOCK , EXPOSED TO MULTIPLE MEDS , INCLUDING HEPARIN, VANCO, IMIPENEM, PROTONIX AND OTHER 2 TO SEPSIS DIC- NEG, LDH- NOTED HIPA- NEG SMEAR- NO FRAGMENTS MONITOR PLATELET COUNT CLOSELY TRANSFUSE PLATELET IF COUNT LESS THAN [id number] OR IF PT IS BLEEDING NO INDICATIONS FOR TRANSFUSION TODAY Severe anemia. POST 4 U PRBC + acd TRANSFUSE PRBC TO KEEP HB ABOVE 8 Septic shock. Patient on 3 pressor support Prerenal azotemia. Prostate cancer. Tongue cancer. Parkinson's disease. Dementia. Respiratory failure. Abnormal liver function tests. Patient has a multiple non-defined lesion in the liver Atrial fibrillation. Hydronephrosis. Rectal bleeding probably from the tumor invading the rectum. Gastroparesis Bilateral lower extremity atherosclerosis with gangrene prognosis- poor consider hospice Problems: Consultation Date/Type/Reason Admit Date/Time Dec 07, 2016 at 01:03 Initial Consult Date 12/15/16 Type of Consultation: HEMEON Referring Provider: JAX SLATER DO 24 HR Interval Summary Free Text/Dictation The patient remains critically ill, maxed out on 3 pressors. The patient is unable to tolerate hemodialysis due to significant hemodynamic fluctuations. The patient is unable to tolerate p.o.s and has had a tube feeding and has had episodes of hypoglycemia. COUNT REVIEWED Exam/Review of Systems Vital Signs Vitals Vital Signs Date Time Temp Pulse Resp B/P Pulse Ox O2 Delivery O2 Flow Rate FiO2 12/19/16 23:15 36 17 72/52 12/19/16 23:00 Mechanical Ventilator 12/19/16 21:11 100 12/19/16 20:00 97.0 12/19/16 18:30 40 Intake and Output 12/18/16 12/18/16 12/19/16 15:00 23:00 07:00 Intake Total 1897.68 ml 1448.86 ml 1064.24 ml Output Total 160 ml 110 ml 135 ml Balance 1737.68 ml 1338.86 ml 929.24 ml Exam OBJECTIVE: GENERAL: The patient is critically ill, cachectic. Bilateral temporal wasting. HEENT: Head is normocephalic. Pupils are minimally reactive. NECK: Supple. HEART: Tachycardic. LUNGS: Show diminished breath sounds at the base. Positive rhonchi and crackles. ABDOMEN: Soft, nontender to palpation. Positive PEG. EXTREMITIES: Positive for diffuse anasarca upper and lower extremity. GENITOURINARY: Positive scrotal edema. DERMATOLOGIC: No rashes. MUSCULOSKELETAL: Positive decubitus wound. NEUROLOGIC: No change in exam. The patient is obtunded. Results Result Diagram: 12/19/16 0345 12/19/16 0345 Results 24 hrs Laboratory Tests Test 12/19/16 03:45 12/19/16 05:49 12/19/16 06:07 12/19/16 06:25 White Blood Count 40.0 H Red Blood Count 2.71 L Hemoglobin 7.8 L Hematocrit 26.5 L Mean Corpuscular Volume 97.8 Mean Corpuscular Hemoglobin 28.8 L Mean Corpuscular Hemoglobin Concent 29.4 L Red Cell Distribution Width 19.6 H Platelet Count 35 L Mean Platelet Volume 13.4 H Neutrophils % 89.0 H Band Neutrophils % 1.0 Lymphocytes % 4.0 L Monocytes % 4.0 Eosinophils % Myelocytes % 1.0 H Promyelocytes % 1.0 H Neutrophils # 35.6 H Lymphocytes # 1.6 Monocytes # 1.6 H Eosinophils # Myelocytes # 0.4 Promyelocytes # 0.4 Sodium Level 140 Potassium Level 3.4 L Chloride Level 110 Carbon Dioxide Level 11 L Anion Gap 22 H Blood Urea Nitrogen 34 H Creatinine 1.23 Glucose Level 55 L Calcium Level 8.5 Phosphorus Level 5.1 H Magnesium Level 1.8 Bedside Glucose 67 L 97 90 Test 12/19/16 09:07 12/19/16 09:56 12/19/16 10:31 12/19/16 11:16 Bedside Glucose 66 L 67 L 90 124 Test 12/19/16 13:08 12/19/16 14:50 12/19/16 15:24 12/19/16 16:19 Bedside Glucose 108 127 106 Blood Gas Specimen Source Blood arterial Arterial Blood Date Drawn 12/19/2016 3:15:50 PM Arterial Blood pH (Temp corrected) 7.018 *L Arterial Blood pCO2 (Temp correct) 27.8 L Arterial Blood pO2 (Temp corrected) 52.4 *L Arterial Blood HCO3 7.0 *L Arterial Blood Base Excess -22.3 L Arterial Blood Oxygen Saturation 80.1 L Eric Test ACCEPTAB Arterial Blood Gas Puncture Site Right Radial Arterial Blood Carboxyhemoglobin 0.3 Arterial Blood Methemoglobin 0.8 Blood Gas A-a O2 Differential 632.8 H Oxyhemoglobin Percent 79.2 L Total Hemoglobin 8.2 L Blood Gas Temperature 37.0 Blood Gas Respiration Rate 14.0 Blood Gas Actual Respiration Rate 24 Blood Gas Modality VENT - AC FiO2 100.0 Blood Gas Tidal Volume 500.0 Blood Gas Low PEEP Setting 0 Blood Gas Critical Value Read Back A JUANJOSE IQBAL Blood Gas Notified Whom JLD Blood Gas Notified Time 12/19/2016 3:24:36 PM Test 12/19/16 19:21 Bedside Glucose 82 Medications Medications Current Medications Ondansetron HCl (Zofran Inj) 4 mg Q6H PRN IV NAUSEA AND/OR VOMITING; Start at 02:00 Pantoprazole (Protonix Iv) 40 mg DAILY@06 IV Last administered on 12/19/16 05: 23; Admin Dose 40 MG; Start 12/07/16 at 06:00 Amiodarone HCl (Cordarone) 400 mg DAILY GTB Last administered on 12/19/16 08:51 ; Admin Dose 400 MG; Start 12/07/16 at 09:00 Collagenase (Santyl) 1 applic DAILY TOP Last administered on 12/19/16 08:52; Admin Dose 1 APPLIC; Start 12/07/16 at 09:30 Collagenase 1 applic 1 applic PRN PRN TOP WOUND USE Last administered on 21:08; Admin Dose 1 APPLIC; Start 12/07/16 at 08:30 Fentanyl (Sublimaze) 100 ml @ 2.5 mls/hr TITRATE IV Last administered on 07:41; Admin Dose 2.5 MLS/HR; Start 12/07/16 at 14:00 Sodium Hypochlorite 1 applic 1 applic BID IRR Last administered on 12/19/16 20: 00; Admin Dose 1 APPLIC; Start 12/09/16 at 21:00 Erythromycin Lactobionate 250 mg/Sodium Chloride 100 ml @ 100 mls/hr Q6 IVPB Last administered on 12/19/16 18:15; Admin Dose 100 MLS/HR; Start 12/11/16 at 18 :00 Linezolid 300 ml @ 300 mls/hr Q12 IVPB Last administered on 12/19/16 21:13; Admin Dose 300 MLS/HR; Start 12/11/16 at 21:00 Norepinephrine 32 mg/Sodium Chloride 250 ml @ 0.46 mls/hr TITRATE IV Last administered on 12/19/16 08:56; Admin Dose 14.06 MLS/HR; Start 12/12/16 at 08:27 Phenylephrine HCl 160 mg/Sodium Chloride 500 ml @ 18.75 mls/ hr TITRATE IV Last administered on 12/19/16 18:13; Admin Dose 56.25 MLS/HR; Start 12/12/16 at 08:29 Vasopressin 60 unit/Sodium Chloride 60 ml @ 1.2 mls/hr Q12H IV Last administered on 12/19/16 08:55; Admin Dose 2.4 MLS/HR; Start 12/12/16 at 09:00 Caspofungin/ Sodium Chloride (Cancidas/NS) 250 ml @ 250 mls/hr Q24H IVPB Last administered on 12/19/16 12:02; Admin Dose 250 MLS/HR; Start 12/13/16 at 11:00 Miscellaneous Information 1 ea NOTE XX ; Start 12/13/16 at 06:30 Glucose (Glutose) 15 gm Q15M PRN PO DECREASED GLUCOSE; Start 12/13/16 at 06:30 Glucose (Glutose) 22.5 gm Q15M PRN PO DECREASED GLUCOSE; Start 12/13/16 at 06:30 Dextrose (D50w Syringe) 25 ml Q15M PRN IV DECREASED GLUCOSE Last administered on 12/19/16 05:49; Admin Dose 25 ML; Start 12/13/16 at 06:30 Dextrose (D50w Syringe) 50 ml Q15M PRN IV DECREASED GLUCOSE Last administered on 12/18/16 03:39; Admin Dose 50 ML; Start 12/13/16 at 06:30 Glucagon (Glucagen) 1 mg Q15M PRN IM DECREASED GLUCOSE; Start 12/13/16 at 06:30 Glucose 15 gm 15 gm Q15M PRN BUCCAL DECREASED GLUCOSE; Start 12/13/16 at 06:30 Dopamine HCl 800 mg/Dextrose 250 ml @ 1.89 mls/hr TITRATE IV Last administered on 12/19/16 15:00; Admin Dose 4.74 MLS/HR; Start 12/13/16 at 09:30 Metronidazole (Flagyl 500 Mg (Pmx)) 100 ml @ 100 mls/hr Q8 IVPB Last administered on 12/19/16 22:59; Admin Dose 100 MLS/HR; Start 12/13/16 at 14:00 Acetaminophen 650 mg 650 mg Q4H PRN NGT PAIN AND OR ELEVATED TEMP Last administered on 12/14/16 18:08; Admin Dose 650 MG; Start 12/14/16 at 08:30 Colistimethate Sodium/Sodium Chloride (Coly-Mycin/NS) 100 ml @ 200 mls/hr Q24H IVPB Last administered on 12/19/16 08:51; Admin Dose 200 MLS/HR; Start 12/16/16 at 09:00 Eye Lubricant (Akwa Oint) 1 applic Q4 BOTH EYES Last administered on 12/19/16 20:00; Admin Dose 1 APPLIC; Start 12/15/16 at 13:00 Eye Lubricant 2 drop 2 drop Q4 BOTH EYES Last administered on 12/19/16 20:00; Admin Dose 2 DROP; Start 12/15/16 at 13:00 Meropenem 100 ml @ 200 mls/hr Q24H IVPB Last administered on 12/19/16 20:34; Admin Dose 200 MLS/HR; Start 12/17/16 at 21:00 Sodium Bicarbonate 150 meq/Dextrose 1,150 ml @ 75 mls/hr [id number] IV Last administered on 12/19/16 16:56; Admin Dose 75 MLS/HR; Start 12/19/16 at 17:30 Epinephrine/ Sodium Chloride (EPINEPHrine/NS) 250 ml @ 0 mls/hr TITRATE IV Last administered on 12/19/16 20:20; Admin Dose 3.75 MLS/HR; Start 12/19/16 at 20 :00 RENEE WONG MD December 19, 2016 23:37
[2016-12-20] VITALS (36 sets, daily range): BP systolic 31–73; BP diastolic 10–56; PULSE 20–35; RESP 14–15
[2016-12-20] MEDS: ERYTHROMYCIN LACTOBIONATE 250 MG in SOD CHLORIDE 0.9% 100 ML IVPB SCH ×2 (00:23→06:40)
[2016-12-20] MEDS: ARTIFICIAL TEARS 15 ML OPH BOTH EYES SCH ×2 (00:25→05:39)
[2016-12-20] MEDS: OCULAR LUBRICANT 3.5 GM OPH OINT BOTH EYES SCH ×2 (00:25→05:39)
[2016-12-20] MEDS: ALBUTEROL 18 GM INHALER INH SCH ×2 (02:10→05:18)
[2016-12-20] MEDS: PHENYLephrine 160 MG in SOD CHLORIDE 0.9% 484 ML IV SCH (02:40)
[2016-12-20 05:21] LABS: ADD SCAN DIFF NO
[2016-12-20 05:34] LABS: ABNORMAL IP MESSAGE 1; HEMATOCRIT 20.1 % (42.0-52.0); MEAN CORPUSCULAR HEMOGLOBIN 29.1 pg (29.0-33.0); MEAN CORPUSCULAR HGB CONC 26.4 g/dl (32.0-37.0); MEAN CORPUSCULAR VOLUME 110.4 fl (82.0-101.0); MEAN PLATELET VOLUME 14.4 fl (7.4-10.4); RED BLOOD COUNT 1.82 10^6/ul (4.70-6.10); RED CELL DISTRIBUTION WIDTH 20.7 % (11.5-14.5); WHITE BLOOD COUNT 13.8 10^3/ul (4.8-10.8)
[2016-12-20] MEDS: metroNIDAZOLE 500 MG/NS (PMX) 100 ML IVPB SCH (05:39)
[2016-12-20] MEDS: PANTOPRAZOLE 40 MG INJ IV SCH (05:39)
[2016-12-20 05:50] LABS: CHLORIDE 108 mmol/L (97-110); SODIUM 140 mmol/L (135-144)
[2016-12-20 05:53] LABS: BLOOD UREA NITROGEN 31 mg/dl (7-20); CREATININE 1.25 mg/dl (0.61-1.24); GLUCOSE 169 mg/dl (70-220)
[2016-12-20 05:54] LABS: MAGNESIUM 2.1 mg/dl (1.7-2.5); PHOSPHORUS 8.9 mg/dl (2.5-4.9)
[2016-12-20 06:04] LABS: ANION GAP 32 (8-16); CARBON DIOXIDE < 5 mmol/L (21-31)
[2016-12-20] MEDS: NORepinephrine 32 MG in SOD CHLORIDE 0.9% 218 ML IV SCH (06:04)
[2016-12-20] MEDS: DOPamine 800 MG in DEXTROSE 5% 230 ML IV SCH (06:06)
[2016-12-20 06:12] LABS: HEMOGLOBIN 5.3 g/dl (14.0-18.0); PLATELET COUNT 13 10^3/UL (140-415)
--- NOTE | 2016-12-20 10:16 | PN ---
DATE: 12/20/2016 SUBJECTIVE: The patient is critically ill, currently on 5 pressors. The patient has been hypotensi ve with systolic pressures in 60s, bradycardic with heart rates in the 20s. The patient is obtunded , nonresponsive with fixed dilated pupils. The patient's is at bedside, made him DNR. The pat ient is unlikely to survive. The patient's is aware. No other events noted. OBJECTIVE: VITAL SIGNS: Blood pressure 65/45, respiratory rate 14, pulse 90, temperature 98.6. GENERAL: The patient is cachectic, pale with no visible signs of life. HEENT: Head is normocephalic. Pupils are fixed. NECK: Supple. HEART: Bradycardic. LUNGS: Show diminished breath sounds at base. ABDOMEN: Soft, positive. EXTREMITIES: Noted to have discoloration of the toes. There is diffuse anasarca. NEUROLOGIC: The patient is obtunded. DERMATOLOGIC: No new rashes. LABORATORY DATA: Shows white count 13.8, hemoglobin 5.3, platelet count 13. Sodium 140, potassium 5.0, bicarbonate 5, BUN 31, creatinine 1.25, phosphorus 8.9. ASSESSMENT AND PLAN: 1. Septic shock secondary to healthcare-associated pneumonia, decubitus wound, UTI. The patient is critically ill, maxed out on 5 pressors. At this point, the patient is almost 100% mortality. We will continue current treatment plan. 2. Ventilator dependent respiratory failure. Vent settings have been reviewed. ABG has been revie wed. 3. Anuric acute kidney injury on top of chronic kidney, patient is clinically unstable for dialysis . 4. Metabolic acidosis secondary to lactic acidosis, acute kidney injury. The patient on bicarbonat e drip. 5. Ischemic gangrenous toe secondary to sepsis. 6. Mineral bone disorder. Continue to monitor calcium and phosphorus levels. 7. Encephalopathy, etiology toxic metabolic, anoxic injury. 8. Anemia. Continue to monitor hemoglobin and hematocrit levels. 9. Thrombocytopenia. 10. Atrial fibrillation, continue to monitor. 11. Anemia, etiology is due to sepsis, possible bleed, possible dilutional. 12. 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 13. Leukocytosis. 14. Decubitus wound. 15. History of tongue cancer with metastatic disease 16. Dysphagia, status post percutaneous endoscopic gastrostomy. 17. Status post hypoglycemia. 18. Nutrition. 19. Gastrointestinal and deep venous thrombosis prophylaxis. Please note that I spent over 40 minutes of critical care time with this patient. Please note the p franko's is at bedside and is aware that the patient's is imminent. Dictated By: JAX ANDRADE/CHLESI Conf#: [id number] DID#: [id number]
[2016-12-20 11:11] LABS: BURR CELLS 2+; EOSINOPHILS # 0.1 10^3/ul (0.0-0.5); LYMPHOCYTES # 4.1 10^3/ul (0.8-2.9); MONOCYTE # 0.4 10^3/ul (0.3-0.9); NEUTROPHIL # 9.1 10^3/ul (1.6-7.5)
[2016-12-20 11:12] LABS: PLATELET ESTIMATE PLT APPEAR DECREASED
--- NOTE | 2016-12-20 11:28 | EN ---
Date/Time of Note Date/Time of Note DATE: 12/20/16 TIME: 11:27 Event Note Medicine Medicine Event Note Patient this morning Family present at bedside On examination No heart sounds No breath sounds Pupils fixed and dilated No response to stimuli No spontaneous respiratory effort Patient at 8:50 AM this morning emergency service worker contacted AMANDEEP GARSIA MD, [facility] December 20, 2016 11:28
--- NOTE | 2016-12-20 18:07 | CONS ---
Date/Time of Note Date/Time of Note DATE: 12/20/16 TIME: 08:05 VK LE Assessment/Plan Assessment/Plan Chief Complaint/Hosp Course THROMBOCYTOPENIA IN PT WITH SEPTIC SHOCK , EXPOSED TO MULTIPLE MEDS , INCLUDING HEPARIN, VANCO, IMIPENEM, PROTONIX AND OTHER Severe anemia. Septic shock. Prerenal azotemia. Prostate cancer. Tongue cancer. Parkinson's disease. Dementia. Respiratory failure. Abnormal liver function tests. Atrial fibrillation. Hydronephrosis. Rectal bleeding probably from the tumor invading the rectum. Gastroparesis Bilateral lower extremity atherosclerosis with gangrene TERMINAL Problems: Consultation Date/Type/Reason Admit Date/Time Dec 07, 2016 at 01:03 Initial Consult Date 12/15/16 [facility] Referring Provider: JAX SLATER DO 24 HR Interval Summary Free Text/Dictation The patient is critically ill, currently on 5 pressors. The patient has been hypotensive with systolic pressures in 60s, bradycardic with heart rates in the 20s. The patient is obtunded, nonresponsive with fixed dilated pupils. The patient's is at bedside, made him DNR. The patient is unlikely to survive. The patient's is aware. No other events noted. Exam/Review of Systems Vital Signs Vitals Vital Signs Date Time Temp Pulse Resp B/P Pulse Ox O2 Delivery O2 Flow Rate FiO2 12/20/16 07:50 20 14 100 12/20/16 07:45 65/45 Mechanical Ventilator 12/20/16 04:00 95.0 12/19/16 18:30 40 Intake and Output 12/19/16 12/19/16 12/20/16 15:00 23:00 07:00 Intake Total 1998.93 ml 2175.74 ml 1868.44 ml Output Total 80 ml 195 ml 55 ml Balance 1918.93 ml 1980.74 ml 1813.44 ml Exam GENERAL: The patient is cachectic, pale with no visible signs of life. HEENT: Head is normocephalic. Pupils are fixed. NECK: Supple. HEART: Bradycardic. LUNGS: Show diminished breath sounds at base. ABDOMEN: Soft, positive. EXTREMITIES: Noted to have discoloration of the toes. There is diffuse anasarca. NEUROLOGIC: The patient is obtunded. DERMATOLOGIC: No new rashes. Results Result Diagram: 12/20/16 0500 12/20/16 0500 Results 24 hrs Laboratory Tests Test 12/19/16 19:21 12/20/16 05:00 Bedside Glucose 82 White Blood Count 13.8 #H Red Blood Count 1.82 #L Hemoglobin 5.3 #*L Hematocrit 20.1 #L Mean Corpuscular Volume 110.4 H Mean Corpuscular Hemoglobin 29.1 Mean Corpuscular Hemoglobin Concent 26.4 L Red Cell Distribution Width 20.7 H Platelet Count 13 #*L Mean Platelet Volume 14.4 H Neutrophils % 66.0 Lymphocytes % 30.0 Monocytes % 3.0 Eosinophils % 1.0 Nucleated Red Blood Cells % 7.0 H Neutrophils # 9.1 H Lymphocytes # 4.1 H Monocytes # 0.4 Eosinophils # 0.1 Platelet Estimate PLT APPEAR DECREASED Sodium Level 140 Potassium Level 5.0 Chloride Level 108 Carbon Dioxide Level < 5 #*L Anion Gap 32 #H Blood Urea Nitrogen 31 H Creatinine 1.25 H Glucose Level 169 # Calcium Level 9.0 Phosphorus Level 8.9 #H Magnesium Level 2.1 RENEE WONG MD December 20, 2016 18:07
== END 2016-12-20 08:46 | disposition expired | DRG 870 ==
LOC: ICU 01:03
PROVIDERS: ADMIT Internal Medicine; ATTEND Internal Medicine
PROC: 5A1955Z Respiratory Ventilation, Greater than 96 Consecutive Hours (ICD-10-PCS; 2016-12-07)
PROC: 0BH17EZ Insertion of Endotracheal Airway into Trachea, Via Natural or Artificial Opening (ICD-10-PCS; 2016-12-07)
PROC: 30243N1 Transfusion of Nonautologous Red Blood Cells into Central Vein, Percutaneous Approach (ICD-10-PCS; 2016-12-08)
PROC: 02HV33Z Insertion of Infusion Device into Superior Vena Cava, Percutaneous Approach (ICD-10-PCS; principal; 2016-12-12)
PROC: 06HY33Z Insertion of Infusion Device into Lower Vein, Percutaneous Approach (ICD-10-PCS; 2016-12-13)
DX: A41.9 Sepsis, unspecified organism (principal); N17.0 Acute kidney failure with tubular necrosis; J96.21 Acute and chronic respiratory failure with hypoxia; R65.21 Severe sepsis with septic shock; G92 Toxic encephalopathy; E43 Unspecified severe protein-calorie malnutrition; J18.9 Pneumonia, unspecified organism; I47.2 Ventricular tachycardia; L89.154 Pressure ulcer of sacral region, stage 4; L89.94 Pressure ulcer of unspecified site, stage 4; J96.22 Acute and chronic respiratory failure with hypercapnia; E87.0 Hyperosmolality and hypernatremia; E87.4 Mixed disorder of acid-base balance; E87.1 Hypo-osmolality and hyponatremia; Z68.1 Body mass index [BMI] 19.9 or less, adult; N13.30 Unspecified hydronephrosis; C79.89 Secondary malignant neoplasm of other specified sites; K62.5 Hemorrhage of anus and rectum; I70.263 Atherosclerosis of native arteries of extremities with gangrene, bilateral legs; L97.429 Non-pressure chronic ulcer of left heel and midfoot with unspecified severity; L97.419 Non-pressure chronic ulcer of right heel and midfoot with unspecified severity; G20 Parkinson's disease; F02.80 Dementia in other diseases classified elsewhere, unspecified severity, without behavioral disturbance, psychotic disturbance, mood disturbance, and anxiety; N18.9 Chronic kidney disease, unspecified; R13.10 Dysphagia, unspecified; E83.52 Hypercalcemia; I48.0 Paroxysmal atrial fibrillation; J44.9 Chronic obstructive pulmonary disease, unspecified; N32.0 Bladder-neck obstruction; K31.84 Gastroparesis; E87.6 Hypokalemia; D69.6 Thrombocytopenia, unspecified; E83.42 Hypomagnesemia; E16.2 Hypoglycemia, unspecified; D64.9 Anemia, unspecified; Z85.810 Personal history of malignant neoplasm of tongue; Z93.1 Gastrostomy status; Z85.21 Personal history of malignant neoplasm of larynx; Z66 Do not resuscitate
CPT/HCPCS: 31500; 36430; 36569; 36600; 71010; 76705; 76937; 80048; 80053; 80076; 80162; 80202; 81001; 81003; 82043; 82306; 82330; 82607; 82728; 82746; 82803; 82962; 83540; 83605; 83615; 83735; 84100; 84145; 84153; 84154; 84155; 84300; 84443; 84484; 85025; 85049; 85362; 85378; 85384; 85610; 85651; 85670; 85730; 86022; 86850; 86900; 86901; 86920; 87040; 87070; 87075; 87081; 87086; 89220; 90935; 93005; 93922; 94002; 94003; 94640; 94770; C1751; C9113; J0171; J0282; J0330; J0610; J0743; J1265; J1364; J1956; J2185; J2370; J3010; J3370; J3475; J3480; J7030; J7040; J7042; J7050; J7060; J7070; P9016; P9047